=== PATIENT | male | born 1960 | race Caucasian/White ===

== ENCOUNTER 2016-06-15 10:38 | Emergency (ER) | payer MEDICARE, MEDICAID ==
--- NOTE | 2016-06-15 11:33 | ED ---
Altered Mental Status - History Of Current Complaint Chief Complaint: EDDiabeticProb Stated Complaint: DIABETIC Time Seen by Provider: 06/15/16 10:43 Hx Obtained From: Patient, Family/Tour Guide Onset/Duration: Unknown - was unable to arouse patient this am. his sugar was 27. she called [facility], they gave him glucose and he awoke, somewhat confused at first, then became clear. last BS was 127. Pt states he took his glucotrol last pm but did not eat after that or yet today. Character: Lethargy Aggravating Factor(s): Other - hypoglycemia Alleviating Factor(s): Glucose Associated Signs And Symptoms: Positive: Negative - Risk Factors CVA Risk Factor: Hypertension - Allergies/Home Medications Allergies/Adverse Reactions: Allergies Allergy/AdvReac Type Severity Reaction Status Date / Time Iodinated Contrast Media Allergy Rash Verified 11/08/15 12:42 [CONTRAST DYE] PMH/Surg Hx/FS Hx/Imm Hx Previously Healthy: Yes Endocrine/Hematology History: Reports: Hx Diabetes - WELL CONTROLLED Denies: Hx Anticoagulant Therapy, Hx Blood Disorders, Hx Blood Transfusions, Hx Bone Marrow Disease, Hx Systemic Lupus Erythematosus, Hx Sickle Cell Disease , Hx Thyroid Disease, Hx Anemia, Hx Unexplained Bleeding, Other Endocrine/ Hematological Disorders Cardiovascular History: Reports: Hx Angina - OCC- USES NITRO SL, Hx Angioplasty , Hx Coronary Artery Disease, Hx Hypercholesterolemia, Hx Hypertension - WELL CONTROLLED, Hx Pacemaker/ICD - 2007 Denies: Hx Aneurysm, Hx Auto Implanted Cardiovert Defib, Hx Cardiac Arrest, Hx Cardiomegaly, Hx Congenital Heart Disease, Hx Congestive Heart Failure, Hx Deep Vein Thrombosis, Hx Embolism, Hx Hypotension, Hx Myocardial Infarction, Hx Peripheral Vascular Disease, Hx Rheumatic Fever, Hx Syncope, Hx Valvular Heart Disease, Other Cardiovascular Problems/Disorders Respiratory History: Reports: Hx 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 Denies: Hx Chronic Bronchitis, Hx Chronic Obstructive Pulmonary Disease (COPD ), Hx Cystic Fibrosis, Hx Lung Cancer, Hx Pleural Effusion, Hx Pneumonia, Hx Pulmonary Edema, Hx Pulmonary Embolism, Hx Seasonal Allergies, Hx Sleep Apnea, Other Respiratory Problems/Disorders GI History: Reports: Hx Gastroesophageal Reflux Disease Denies: Hx Cirrhosis, Hx Crohn's Disease, Hx Diverticulosis, Hx Gall Bladder Disease, Hx Gastrointestinal Bleed, Hx Hiatal Hernia, Hx Irritable Bowel, Hx Jaundice, Hx Obstructive Bowel, Hx Ileostomy, Hx Pyloric Stenosis, Hx Ulcer, Other GI Disorders History: Reports: Hx Kidney Stones - LEFT Denies: Hx Acute Renal Failure, Hx Benign Prostatic Hyperplasia, Hx Chronic Renal Failure, Hx Dialysis, Hx Kidney Infection, Hx Renal Disease, Other Problems/Disorders Musculoskeletal History: Reports: Hx Arthritis - BILATERAL HANDS AND LEGS Denies: Hx Back Problems, Hx Bursitis, Hx Congenital Bone Abnormalities, Hx Fibromyalgia, Hx Gout, Hx Orthopedic Injury, Hx Osteoporosis, Hx Scoliosis, Hx Tendonitis, Other Musculoskeletal History Sensory History: Reports: Hx Contacts or Glasses Denies: Hx Hearing Aid Opthamlomology History: Reports: Hx Contacts or Glasses Neurological History: Denies: Hx Dementia, Hx Seizures, Other Neuro Impairments/Disorders Psychiatric History: Reports: Hx Depression Denies: Hx Anxiety, Hx Attention Deficit Hyperactivity Disorder, Hx Eating Disorder, Hx Panic Disorder, Hx Post Traumatic Stress Disorder, Hx Inpatient Treatment, Hx Community Mental Health Tx, Hx Schizophrenia, Hx Bipolar Disorder , Hx Suicide Attempt, Hx of Violent Episodes Against Others, Hx Substance Abuse , Other Psychiatric Issues/Disorders - Surgical History Surgery Procedure, Year, and Place: PACEMAKER [facility] [place] 2007. APPENDECTOMY [facility] [place]. MULTIPLE CYSTO, L STENT, L ESWL PROCEDURES [facility] [place]. CARDIAC CATH X3 2010 Hx Anesthesia Reactions: No - Immunization History Date of Tetanus Vaccine: Unknown Infectious Disease History: No Infectious Disease History: Denies: Hx Clostridium Difficile, Hx Hepatitis, Hx Human Immunodeficiency Virus (HIV), Hx Tuberculosis, Traveled Outside the [place] in Last 30 Days - Family History Known Family History: Positive: Cardiac Disease, Hypertension - Social History Alcohol Use: None Alcohol Amount: 2-3 PER DAY Substance Use Type: Reports: None Smoking Status (MU): Former Smoker Type: Cigarettes Amount Used/How Often: 2 PACKS A DAY Length of Time of Smoking/Using Tobacco: MANY YRS Have You Smoked in the Last Year: No Review of Systems Constitutional: Negative Eyes: Negative Cardiovascular: Negative Negative: Chest Pain Respiratory: Negative Negative: Shortness Of Breath, Cough Gastrointestinal: Negative Negative: Abdominal Pain Musculoskeletal: Negative Skin: Negative Neurological: Negative Negative: Headache, Weakness, Paresthesia, Slurred Speech Psychological: Normal All Other Systems Reviewed And Are Negative: Yes Physical Exam Triage Information Reviewed: Yes Vital Signs On Initial Exam: Initial Vitals Temp Pulse Resp BP Pulse Ox 97.4 F 71 18 150/101 97 06/15/16 11:06 06/15/16 11:06 06/15/16 11:06 06/15/16 11:06 06/15/16 11:06 Vital Signs Reviewed: Yes Appearance: Positive: Well-Appearing, No Pain Distress, Well-Nourished Skin: Positive: Warm, Skin Color Reflects Adequate Perfusion, Dry Head/Face: Positive: Normal Head/Face Inspection Eyes: Positive: Normal Respiratory/Lung Sounds: Positive: Clear to Auscultation Cardiovascular: Positive: Normal, RRR, Pulses are Symmetrical in both Upper and Lower Extremities Abdomen Description: Positive: Nontender, No Organomegaly, Soft Musculoskeletal: Positive: Normal, Strength/ROM Intact Neurological: Positive: Normal, Sensory/Motor Intact, Alert, Oriented to Person Place, Time Psychiatric: Positive: Normal Diagnostics - Vital Signs Vital Signs Temp Pulse Resp BP Pulse Ox 06/15/16 11:18 97.6 F 71 18 150/101 97 06/15/16 11:06 97.4 F 71 18 150/101 97 - Laboratory Result Diagrams: 06/15/16 11:35 Lab Statement: Any lab studies that have been ordered have been reviewed, and results considered in the medical decision making process. Re-Evaluation - Re-Evaluation First Eval Re-Evaluation Time: 12:00 - esting and stephen lunch Change: Unchanged Second Eval Change: Unchanged - discussed medications with pt since BS remains low after eating. He states he has not seen PCP in many months and is currently taking glucotrol XL 10mg 2 in am and 3 in pm, Metformin 1000mg bid and Janumet bid (provided pill bottles with pills intact) After speaking with pharmacist at [facility] @ 1500: pt last filled glucotrol on 09/27/2015. Metformin on 03/03/16 and Janumet on 05/21/16. Pt does check BS every day and state it was 150 yesterday. Pt willing to eat another sandwhich before going home Altered Mental Statu Course/Dx - Course Course Of Treatment: discussed plan of care and discharge plan with Dr. Ray before discharging patient. - Diagnoses Differential Diagnosis/HQI/PQRI: Hypoglycemia, Overdose, Sepsis Discharge Diagnoses: Hypoglycemia associated with diabetes Discharge - Discharge Plan Condition: Stable Disposition: HOME Patient Education Materials: Hypoglycemia in a Person with Diabetes (ED) Referrals: Erasmo Hill MD [Primary Care Provider] - (call on Friday06/17/16) Additional Instructions: Do Not Take any diabetic pills until you speak with Dr. Hill's office on Friday. Make sure you eat regularly and check your blood sugar 3 times a day at home. Return to ER if your blood sugar is below 80 or over 300 at anytime
[2016-06-15 12:57] LABS: Albumin 4.2 g/dL (3.2-5.2); BUN/Creatinine Ratio 19.3 (8-20); Calcium 8.8 mg/dL (8.6-10.3); EGFR African American 55.6 (>60); EGFR Non-African American 43.2 (>60); Globulin 2.6 g/dL (2-4); Potassium 4.4 mmol/L (3.5-5.0); Total Bilirubin 0.3 mg/dL (0.2-1.0); Total Protein 6.8 g/dL (6.4-8.9)
[2016-06-15 15:59] VITALS: BP 142/84
== END 2016-06-15 16:08 | disposition home or self-care (01) ==
LOC: ED 10:38
DX: E11.649 Type 2 diabetes mellitus with hypoglycemia without coma (principal); Z87.891 Personal history of nicotine dependence
CPT/HCPCS: 36415; 80053; 99283

== ENCOUNTER 2016-11-03 18:58 | Emergency (ER) | payer MEDICARE, MEDICAID ==
[2016-11-03] MEDS ORDERED: Ondansetron ODT TAB* 4 MG PO ONE (21:43)
--- NOTE | 2016-11-03 21:52 | ED ---
Complex/Multi-Sys Presentation - HPI Summary HPI Summary: 56 male presents to ED with complaints of weakness, numbness/tingling and pain of bilateral lower extremities that began today and has progressively been worsening. Patient states the symptoms began after push mowing the lawn for hours all day. States he was going up colindres and was twisting. Describes the pain to be "numb and weak". Denies any known injury or trauma otherwise. No bladder/bowel incontinence. Admits to entire LE being numb and without sensation. States they feel like jelly and like they are going to give out when he walks. States he fell while trying to get to his truck after mowing the lawn. Admits to vomiting twice [employer]. Patient denies any symptoms that have resembled this in the past. Woke up completely fine this morning. Patient states he also began having left rib sided pain that radiated into arm and weakness in LUE. Denies abdominal pain. Normal bowels. PMHx significant for HTN , DM, pacemaker, hyperkalemia, sleep apnea and CAD. No chest pain or difficulty breathing at this time. No other complaints. Denies back and neck pain. Admits to feeling feverish and sweaty earlier however did not take temperature. Very difficult historian. - History Of Current Complaint Chief Complaint: EDExtremityLower Time Seen by Provider: 11/03/16 21:23 Hx Obtained From: Patient Onset/Duration: Sudden Onset, Lasting Hours, Still Present, Worse Since Timing: Constant Severity Currently: Severe Severity Initially: Severe Location: Pain At: - b/l lower extremities Character: Unable To Describe - "sometimes sharp, numb, weak" Aggravating Factor(s): walking Alleviating Factor(s): nothing Associated Signs And Symptoms: Positive: Weakness - Allergies/Home Medications Allergies/Adverse Reactions: Allergies Allergy/AdvReac Type Severity Reaction Status Date / Time Iodinated Contrast Media Allergy Rash Verified 07/22/16 12:54 [CONTRAST DYE] PMH/Surg Hx/FS Hx/Imm Hx Endocrine/Hematology History: Reports: Hx Diabetes - WELL CONTROLLED Denies: Hx Anticoagulant Therapy, Hx Blood Disorders, Hx Blood Transfusions, Hx Bone Marrow Disease, Hx Systemic Lupus Erythematosus, Hx Sickle Cell Disease , Hx Thyroid Disease, Hx Anemia, Hx Unexplained Bleeding, Other Endocrine/ Hematological Disorders Cardiovascular History: Reports: Hx Angina - OCC- USES NITRO SL, Hx Angioplasty , Hx Coronary Artery Disease, Hx Hypercholesterolemia, Hx Hypertension - WELL CONTROLLED, Hx Pacemaker/ICD - 2007 Denies: Hx Aneurysm, Hx Auto Implanted Cardiovert Defib, Hx Cardiac Arrest, Hx Cardiomegaly, Hx Congenital Heart Disease, Hx Congestive Heart Failure, Hx Deep Vein Thrombosis, Hx Embolism, Hx Hypotension, Hx Myocardial Infarction, Hx Peripheral Vascular Disease, Hx Rheumatic Fever, Hx Syncope, Hx Valvular Heart Disease, Other Cardiovascular Problems/Disorders Respiratory History: Reports: Hx 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 Denies: Hx Chronic Bronchitis, Hx Chronic Obstructive Pulmonary Disease (COPD ), Hx Cystic Fibrosis, Hx Lung Cancer, Hx Pleural Effusion, Hx Pneumonia, Hx Pulmonary Edema, Hx Pulmonary Embolism, Hx Seasonal Allergies, Hx Sleep Apnea, Other Respiratory Problems/Disorders GI History: Reports: Hx Gastroesophageal Reflux Disease Denies: Hx Cirrhosis, Hx Crohn's Disease, Hx Diverticulosis, Hx Gall Bladder Disease, Hx Gastrointestinal Bleed, Hx Hiatal Hernia, Hx Irritable Bowel, Hx Jaundice, Hx Obstructive Bowel, Hx Ileostomy, Hx Pyloric Stenosis, Hx Ulcer, Other GI Disorders History: Reports: Hx Kidney Stones - LEFT Denies: Hx Acute Renal Failure, Hx Benign Prostatic Hyperplasia, Hx Chronic Renal Failure, Hx Dialysis, Hx Kidney Infection, Hx Renal Disease, Other Problems/Disorders Musculoskeletal History: Reports: Hx Arthritis - BILATERAL HANDS AND LEGS Denies: Hx Back Problems, Hx Bursitis, Hx Congenital Bone Abnormalities, Hx Fibromyalgia, Hx Gout, Hx Orthopedic Injury, Hx Osteoporosis, Hx Scoliosis, Hx Tendonitis, Other Musculoskeletal History Sensory History: Reports: Hx Contacts or Glasses Denies: Hx Hearing Aid Opthamlomology History: Reports: Hx Contacts or Glasses Neurological History: Denies: Hx Dementia, Hx Seizures, Other Neuro Impairments/Disorders Psychiatric History: Reports: Hx Depression Denies: Hx Anxiety, Hx Attention Deficit Hyperactivity Disorder, Hx Eating Disorder, Hx Panic Disorder, Hx Post Traumatic Stress Disorder, Hx Inpatient Treatment, Hx Community Mental Health Tx, Hx Schizophrenia, Hx Bipolar Disorder , Hx Suicide Attempt, Hx of Violent Episodes Against Others, Hx Substance Abuse , Other Psychiatric Issues/Disorders - Surgical History Surgery Procedure, Year, and Place[place] [facility] [place] [facility] [place] MULTIPLE CYSTO, L STENT, L ESWL [place] [facility] [place]ARDIAC [place] X3 2010 Hx Anesthesia Reactions: No - Immunization History Date of Tetanus Vaccine: Unknown Immunizations Up to Date: Yes Infectious Disease History: No Infectious Disease History: Denies: Hx Clostridium Difficile, Hx Hepatitis, Hx Human Immunodeficiency Virus (HIV), Hx Tuberculosis, Traveled Outside the [place] in Last 30 Days - Family History Known Family History: Positive: Cardiac Disease, Hypertension - Social History Alcohol Use: None Alcohol Amount: 2-3 PER DAY Substance Use Type: Reports: None Smoking Status (MU): Former Smoker Type: Cigarettes Amount Used/How Often: 2 PACKS A DAY Length of Time of Smoking/Using Tobacco: MANY YRS Have You Smoked in the Last Year: No Review of Systems Positive: Fever, Chills Eyes: Negative ENT: Negative Cardiovascular: Negative Respiratory: Negative Positive: Vomiting Positive: Arthralgia, Myalgia, Decreased ROM Skin: Negative Positive: Weakness - b/l lower extremities, left arm , Paresthesia, Numbness - bilateral lower extremities All Other Systems Reviewed And Are Negative: Yes Physical Exam Triage Information Reviewed: Yes Vital Signs On Initial Exam: Initial Vitals Temp Pulse Resp BP Pulse Ox 98.2 F 105 18 140/79 99 11/03/16 19:00 11/03/16 19:00 11/03/16 19:00 11/03/16 19:00 11/03/16 19:00 Vital Signs Reviewed: Yes Appearance: Positive: Well-Appearing, Well-Nourished, Pain Distress - moderate with movement, walking, weight bearing Skin: Positive: Warm, Skin Color Reflects Adequate Perfusion, Dry, Numb - b/l lower extremities, diffuse with sharp and dull, some feeling on bottom of feet. Negative: Cold, Cyanosis @, Pale, Erythema @ Head/Face: Positive: Normal Head/Face Inspection Eyes: Positive: Conjunctiva Clear ENT: Positive: Hearing grossly normal, Pharynx normal Neck: Positive: Supple, Nontender Respiratory/Lung Sounds: Positive: Clear to Auscultation, Breath Sounds Present. Negative: Rales, Rhonchi, Wheezes Cardiovascular: Positive: Normal, RRR, Pulses are Symmetrical in both Upper and Lower Extremities - 2+ pedal b/l. Negative: Murmur, Rub Abdomen Description: Positive: Nontender, No Organomegaly, Soft. Negative: Bruit, CVA Tenderness (R), CVA Tenderness (L), Distended, Guarding, Peritoneal Signs Bowel Sounds: Positive: Present Musculoskeletal: Positive: Limited @ - strenght decreased 1-2+ b/l lower extremities against resistance., Pain @ - with movement of b/l lower extremities , Other - no obvious deformity, crepitus or step off noted. no signs of trauma or rash. rest of MSK normal. No pain on palpation of spine or cervical spine + muscles.. Negative: Interruption @, Ar Sign Left, Ar Sign Right, Edema Left, Edema Right Neurological: Positive: Normal, Alert, Oriented to Person Place, Time, Abnormal Reflex @ - areflexia left patella, diminshed right patella 1+, areflexia b/l achilles. negative babinski, Abnormal Gait - weak, able for only ~10 steps until feels like he is going to fall, Facial Symmetry, Speech Normal, Other - sensation deminished b/l lower extrmities, diffusely, sharp and dull. Negative : Sensory/Motor Intact, NV Bundle Intact Distally, Facial Droop, Focal Deficit @ Psychiatric: Positive: Affect/Mood Appropriate - Kayleigh Coma Scale Best Eye Response: 4 - Spontaneous Best Motor Response: 6 - Obeys Commands Best Verbal Response: 5 - Oriented Diagnostics - Vital Signs Vital Signs Temp Pulse Resp BP Pulse Ox 11/03/16 19:00 98.2 F 105 18 140/79 99 - Laboratory Result Diagrams: 11/03/16 22:30 11/03/16 22:30 Lab Statement: Any lab studies that have been ordered have been reviewed, and results considered in the medical decision making process. - Radiology chest Xray Interpretation: No Acute Changes Radiology Interpretation Completed By: ED Physician - Dr Castano - CT brain CT Interpretation: No Acute Changes CT Interpretation Completed By: Radiologist - EKG EKG Cardiac Rate: NL EKG Rhythm: Sinus Tachycardia ST Segment: Normal Ectopy: None EKG Interpretation: No STEMI, pacemaker present Complex Multi-Symp Course/Dx Course Of Treatment: Spoke with Dr Castano about patient due to presentation, HPI and PE findings. Spoke with neurologist Dr Pro who stated patient needs further imaging and testing to rule out neurologic illness such as GBS, MS versus spinal. Patient has pacemaker unknown MRI compatibility. Had placed in 2007 at [facility] per patient. difficult historian. Labs obtained, patient has chronic kidney disease with elevated BUN/Cr. Hyperkalemia and hyperglycemia noted patient has known history of DM and hyperkalemia in which he was unable to take his night medications for due to being in ED. No chest pain. EKG obtained and sinus tachy, no stemi, pacemaker present. Given fluids, kayexalate. Bladder scan obtained and only 97ml of fluid bladder, does not appear to be retaining fluids. Chest x-ray and CT brain obtained and negative. Slightly elevated WBC with left shift, no fever. After discussion with Dr Castano and Dr Pro neurologist- agreed that transfer for EMG and MRI testing is preferred and requested. Speciality testing unable [place] obtain [place] [facility]. Requires prompt testing due to rapid progression and for patient's best interest. Spoke with [facility] physician Dr Caro and neurologist Dr Young. Told to check glucose en route and give 10 of insulin while in ED. Both accepted patient for transfer at 12:00am. - Diagnoses Differential Diagnoses/HQI/PQRI: Other - infection, GBS, transverse myelitis, MS , AAA, hyperkalemia, paresthesia, weakness Provider Diagnoses: Numbness and tingling of both lower extremities, Hyperkalemia, Hyperglycemia, Diminished reflexes on examination - Physician Notifications Discussed Care Of Patient With: Dr Castano, Dr Caro, Dr Young Time Discussed With Above Provider: 11:30 Instructed by Provider To: Transfer Admit/Transition Orders Completed By ED Provider: Yes Reason For Transfer: Specialty or service not available [place] [facility] - prompt EMG testing Discharge - Discharge Plan Condition: Stable Disposition: TRANS HIGHER LVL OF CARE FAC
[2016-11-03 22:55] LABS: Hematocrit 38 % (42-52); Hemoglobin 12.3 g/dl (14.0-18.0); Mean Corpuscular HGB Conc 33 g/dl (31-36); Mean Corpuscular Hemoglobin 26 pg (27-31); Mean Corpuscular Volume 80 fL (80-94); Mean Platelet Volume 9 um3 (7.4-10.4); Red Blood Count 4.67 10^6/ul (4.0-5.4); Red Cell Distribution Width 15 % (10.5-15)
[2016-11-03 23:03] LABS: Albumin 4.2 g/dL (3.2-5.2); C Reactive Protein 30.71 mg/L (< 5.00); Calcium 8.3 mg/dL (8.6-10.3); EGFR African American 55.8 (>60); EGFR Non-African American 43.4 (>60); Globulin 2.7 g/dL (2-4); Magnesium 1.3 mg/dL (1.9-2.7); Total Bilirubin 0.8 mg/dL (0.2-1.0); Total Protein 6.9 g/dL (6.4-8.9)
[2016-11-03 23:07] LABS: Potassium 6.2 mmol/L (3.5-5.0)
[2016-11-03] MEDS ORDERED: NS 0.9% 1000 ML* 1,000 ML IV ONE (23:23)
[2016-11-03] MEDS ORDERED: Sodium Polystyrene ORAL.SOL* 15 GM/60 ML BTL PO ONE (23:40)
[2016-11-03 23:47] LABS: Erythrocyte Sed Rate 11 mm/Hr (0-20)
[2016-11-04] MEDS: NS 0.9% 1000 ML* 2,000 ML IV ONE ×2 (00:32→01:32)
[2016-11-04] MEDS ORDERED: Insulin REGULAR(*) 1 UNITS UNIT SUBCUT ONE (01:14)
[2016-11-04 02:38] VITALS: BP 136/73
[2016-11-04] MEDS ORDERED: HYDROcodone/ACETAMIN 5-325 MG* 1 TAB PO ONE (02:47)
--- NOTE | 2016-11-04 07:24 | RAD ---
INDICATION: Left rib pain. COMPARISON: Comparison is made with prior chest x-ray studies from April 05, 2014 and February 15, 2016. TECHNIQUE: Dual-energy PA and lateral views of the chest were obtained. FINDINGS: There is a dual-chamber cardiac pacemaker defibrillator present. The heart appears mildly enlarged and unchanged from the prior exam. The lungs are clear. There is blunting of the left costophrenic angle which is unchanged from prior studies most consistent with pleural thickening. No pneumothorax is seen. IMPRESSION: 1. NO EVIDENCE FOR ACUTE FINDING. 2. BLUNTING OF THE LEFT COSTOPHRENIC ANGLE UNCHANGED MOST CONSISTENT WITH PLEURAL THICKENING.
--- NOTE | 2016-11-04 07:30 | RAD ---
INDICATION: Bilateral extremity pain evaluate for CVA. COMPARISON: There are no prior studies available for comparison. TECHNIQUE: Contiguous axial sections of the brain were obtained from the skull base to the vertex without contrast. FINDINGS: The ventricles, cisterns and sulci are within normal limits. No significant focal abnormality or mass effect is seen. There is no evidence for hemorrhage. There is calcific plaque within the left vertebral artery. No significant focal osseous abnormality is seen. The visualized portion of the paranasal sinuses and mastoid air cells appear clear. IMPRESSION: NO EVIDENCE FOR GROSS ACUTE INFARCT, MASS EFFECT OR HEMORRHAGE.
== END 2016-11-04 01:39 | disposition short-term general hospital (02) ==
LOC: ED 18:58
DX: R20.0 Anesthesia of skin (principal); R20.2 Paresthesia of skin; E87.5 Hyperkalemia; E11.65 Type 2 diabetes mellitus with hyperglycemia; I25.119 Atherosclerotic heart disease of native coronary artery with unspecified angina pectoris; J45.909 Unspecified asthma, uncomplicated; K21.9 Gastro-esophageal reflux disease without esophagitis; I25.10 Atherosclerotic heart disease of native coronary artery without angina pectoris; E78.00 Pure hypercholesterolemia, unspecified; I10 Essential (primary) hypertension; Z95.0 Presence of cardiac pacemaker; Z87.891 Personal history of nicotine dependence
CPT/HCPCS: 36415; 70450; 71020; 80053; 83735; 85025; 85652; 86140; 93005; 96360; 96361; 99283; A9270-GY

== ENCOUNTER 2017-05-02 10:59 | Emergency (ER) | payer MEDICARE, MEDICAID ==
[2017-05-02] MEDS ORDERED: Oxymetazoline 0.05% NASAL SPR* 15 ML BTL RIGHT NARE ONE (11:25)
[2017-05-02] MEDS ORDERED: Labetalol IV* 5 MG/ML 20 ML VIAL IV PUSH ONE (11:27)
[2017-05-02 11:52] LABS: ABS Basophils 0.1 10^3/ul (0-0.2); ABS Eosinophils 0.1 10^3/ul (0-0.6); ABS Monocytes 0.7 10^3/ul (0-0.8); ABS Neutrophils 13.3 10^3/ul (1.5-7.7); ABS Nucleated RBC 0 10^3/ul; Eosinophil % 0.9 % (0-6); Hematocrit 29 % (42-52); Hemoglobin 9.2 g/dl (14.0-18.0); Lymphocyte % 6.7 % (25-47); Mean Corpuscular HGB Conc 32 g/dl (31-36); Mean Corpuscular Hemoglobin 25 pg (27-31); Mean Corpuscular Volume 79 fL (80-94); Mean Platelet Volume 9 um3 (7.4-10.4); Nucleated Red Blood Cells % 0; Platelet Count 197 10^3/ul (150-450); Red Blood Count 3.67 10^6/ul (4.0-5.4); Red Cell Distribution Width 14 % (10.5-15); White Blood Count 15.2 10^3/ul (3.5-10.8)
[2017-05-02 11:58] LABS: INR 1.24 (0.77-1.02)
--- OUTSIDE RECORDS SUMMARY | 2017-05-02 12:11 | XMS REPORT ---
:1960 External Reference #:[id number] Author Organization [facility] Address [address] [address] Phone [phone] Care Team Providers Name Role Phone Erasmo Hill MD Primary Care Physician Unavailable Payers Type Date Identification Numbers Payment Provider Subscriber Medicare Primary Effective: Policy Number: Medicare Fer Pratt 2007 [id number] PayID: [id number] [address] [place] [address] [facility] Part [facility] Policy Number: [id number] Medicaid Fer Pratt PayID: [id number] [address] [place] [address] Problems Date Description Provider Status Onset: 06/04/2011 Chest pain Jordan Rojas M.D. Onset: 06/04/2011 Electrocardiogram abnormal Jordan Rojas M.D. Onset: 06/04/2011 Benign essential hypertension Jordan Rojas M.D. Onset: 06/04/2011 Hyperlipidemia Jordan Rojas M.D. Onset: 06/04/2011 Automatic implantable cardiac Jordan Rojas defibrillator in situ [employer] Onset: 07/11/2011 Coronary arteriosclerosis [place] [facility] Schedule Active Onset: 07/11/2011 Chronic ischemic heart disease [place] [facility] Schedule Active Onset: 05/26/2012 Tachycardia Jordan Rojas M.D. Onset: 05/26/2012 Dyspnea Jordan Rojas M.D. Onset: 10/16/2012 Spinal stenosis of lumbar region Leobardo Reynoso M.D. Active Onset: 11/24/2012 Preoperative cardiovascular Jordan Rojas M.D. Onset: 02/02/2013 Arthralgia of the lower leg Edmund Jasso M.D. 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[employer] Onset: 11/01/2016 Epistaxis Macey Cespedes DNP, RN, Active [employer]ST[employer] Family History Date Family Member(s) Problem(s) Comments General Arthritis General Stroke General Diabetes General Cancer Father Sleep Apnea Father Hypertension Father Hypercholesterolemia Father Diabetes Mother due to car accident () Mother Heart Disease Social History Type Date Description Comments Marital Status Single Lives With Girlfriend Occupation Unemployed Occupation Disabled Cigarette Use Former Cigarette Smoker ETOH Use Occasionally consumes alcohol rarely- 1 beer at most Smoking Patient is a former smoker Recreational Drug Use Denies Drug Use Daily Caffeine Consumes on average 1 cup of regular coffee per day Daily Caffeine Consumes on average 2 sodas per day Exercise Type/Frequency Exercises regularly Works at [employer] Hx Text Allergies, Adverse Reactions, Alerts Date Description Reaction Status Severity Comments 06/14/2009 contrast dye Urticaria active 08/30/2016 Shellfish Urticaria active Medications Medication Date Status Form Strength Qnty SIG Indications Ordering Provider Xarelto 02/21/ Active Tablets 20mg 30tab 1 by mouth I48.91 Qutaybbrennan 2018 s every day Jess German M.D. Magnesium Oxide 07/22/ Active Tablets 400mg 60tab 1 by mouth Qutaybeh 2016 s twice a S. day Etelvina German Aspirin 07/10/ Active Tablets 81mg 1 by mouth Qutaybbrennan 2017 every day Jess German M.D. Metoprolol 07/05/ Active Tablets ER 25mg 30tab 1 by mouth I42.9 Qutaybeh Succinate ER 2016 24HR s every day Jess German M.D. Tylenol 02/03/ Active Tablets 500mg 100ta two qd prn Qutaybeh 2007 bs S. Etelvina German Nasonex 02/03/ Active Suspension 50mcg/Act 1Mon 1 [place] Timmy 2007 Jon Each S. Side qd Etelvina German Albuterol / Active Aerosol 90mcg/Act 1 po bid Unknown 0000 prn Diltiazem HCL / Active Tablets 30mg 180ta 1 by mouth Jenisetaybbrennan bs twice a S. day Etelvina German Brilinta / Active Tablets 90mg 60tab 1 tab by Qutaybbrennan s mouth S. twice a Monserrat bunn M.D. Nitrostat / Active Tablets Sub 0.4mg 25tab one sl Jenisetaybbrennan s q5min up S. to 3 doses Monserrat as needed Etelvina Cetirizine HCL / Active Tablets 10mg 1 by mouth Unknown 0000 every day Janumet / Active Tablets 50-1000mg take 1 Unknown 0000 tablet by mouth twice a day Symbicort / Active Aerosol 160-4.5mc 2 puff Unknown 0000 g/Act twice a day Omeprazole / Active Tablets DR 20mg 1 by mouth Unknown 0000 every day Gabapentin / Active Capsules 300mg 1 by mouth Unknown 0000 twice a day Lisinopril / Active Tablets 2.5mg 1 by mouth Unknown 0000 every day Triamterene/Hyd / Active Capsules 37.5-25mg 1 tablet Unknown rochlorothiazid 0000 po daily e Atorvastatin / Active Tablets 80mg 90tab take one Timmy Calcium 0000 s tablet by S. mouth Monserrat every day Etelvina Magnesium 07/22/ Hx Solution 2GM/50ML 2gms 2 gms IV Qutaybeh Sulfate 2017 - over 3 S. 09/08/ hours Monserrat Orta M.D. Metformin HCL 12/03/ Hx Tablets ? 60tab 1 by mouth Jenisetaybbrennan 2016 - s daily S. 12/04/ Monserrat Cuellar M.D. Magnesium 10/31/ Hx Solution 2GM/50ML 1unit 2 gm Arnulfo Sulfate 2016 - s infusion F. 09/22/ over 1 Mauser, 2016 hour x 1 M.D. dose Magnesium Oxide 10/31/ Hx Tablets 400mg 30tab 1 by mouth Qutaybeh 2015 - s bid S. 07/10/ (Unsure If [facility] 2016 Takng) , Etelvina Metoprolol 07/16/ Hx Tablets 100mg 60tab 1 po bid Qutaybeh Tartrate 2012 - s (taken S. 06/19/ with 25 mg [facility] 2016 tabs) , Etelvina Metoprolol 07/16/ Hx Tablets 25mg 60tab 1 po bid Qutaybeh Tartrate 2012 - (with S. 10/16/ 100mg to [facility] 2012 equal , M.D. 125mg bid) Cardizem 05/26/ Hx Tablets 30mg 180ta 1 by mouth Qutaybeh 2012 - twice S. 12/31/ daily [facility] 2015 , Etelvina Lisinopril 04/25/ Hx Tablets 5mg 30tab 1/2 po qd Qutaybeh 2009 - s (decreased S. 07/09/ /03/04) [facility] 2016 , Etelvina Metoprolol 04/25/ Hx Tablets 100mg 60tab 1 po bid Qutaybeh Tartrate 2009 - s S. 07/16/ [facility] 2012 , Etelvina Metformin HCL 03/31/ Hx Tablets 1000mg 1 po bid Qutaybeh 2008 - S. 12/18/ [facility] 2013 , Etelvina Metoprolol 03/31/ Hx Tablets ER 50mg 90tab 1 and 02/18 Qutaybeh 2009 - 24HR s po bid S. 04/25/ [facility] 2010 , Etelvina Lisinopril 02/03/ Hx Tablets 5mg 30tab 1 po qd Qutaybeh 2007 - s S. 02/03/ [facility] 2008 , Etelvina Metoprolol 02/03/ Hx Tablets ER 50mg two qd Qutaybeh 2007 - S. 03/31/ [facility] 2009 , Etelvina Metformin HCL 02/03/ Hx Tablets 1000mg two qd Qutaybeh 2007 - S. 03/31/ [facility] 2009 , Etelvina Lisinopril 02/03/ Hx Tablets 2.5mg qd Qutaybeh 2007 - S. 04/25/ [facility] 2009 , Etelvina Prevacid 02/03/ Hx Capsules DR 30mg 90cap 1 PO qd Qutaybeh 2007 - s S. 06/19/ [facility] 2016 , Etelvina Glipizide XL 02/03/ Hx Tablets ER 10mg 100ta bid PO Qutaybeh 2007 - 24HR bs S. 06/19/ [facility] 2016 , Etelvina Albuterol 02/03/ Hx 3unit 2 Puffs Up Qutaybeh Inhaler 2007 - s To qid prn S. 06/06/ [facility] 2010 , Etelvina Singulair 02/03/ Hx Tablets 10mg 30tab 1 PO qd Qutaybeh 2007 - s S. 07/09/ [facility] 2016 , Etelvina Lescol 02/03/ Hx Tablets ER 80mg 30tab 1 PO hs Qutaybeh 2007 - 24HR s S. 06/06/ [facility] 2010 , Etelvina Lanoxin 06/16/ Hx Tablets 0.25mg 30tab 1 PO qd Qutaybeh 2007 - s S. 06/19/ [facility] 2016 , Etelvina Metoprolol 06/16/ Hx Tablets 50mg 110ta 1and 02/18 Qutaybeh Tartrate 2007 - bs po bid S. 02/03/ 2007 , Etelvina Lisinopril 06/16/ Hx Tablets 2.5mg 30tab 1 po qd Qutaybeh 2007 - s S. 02/03/ 2007 Etelvina Digitek / Hx Tablets 0.25mg 1 PO qd Qutaybeh 2007 - S. 06/16/ 2007 , Etelvina Metoprolol / Hx Tablets ER 25mg 90tab 1po bid Qutaybeh Succinate ER 2007 - 24HR s S. 06/16/ 2007 Etelvina Aspirin 04/16/ Hx Tablets 325mg 1 PO qd Qutaybeh 2007 - S. 07/10/ [facility] 2016 , Etelvina Glucotrol 04/16/ Hx Tablets 15mg 60tab 1 PO qd Qutaybeh 2007 - s S. 06/19/ Monserrat Orta M.D. Metformin HCL 04/16/ Hx Tablets 500mg 60tab Take 1 Qutaybeh 2007 - Tablet By S. 02/03/ Mouth qd Monserrat Pereira M.D. Plavix / Hx Tablets 75mg 1 po qd x3 Unknown 0000 - days 2009 Simvastatin / Hx Tablets 40mg 30tab 1 po qhs Unknown 0000 - s 2015 Humulin R / Hx Solution 100Unit/M 2unit 20 units Unknown 0000 - L s qam; 20 12/18/ units q 2013 p.m. Humulin R / Hx sliding Unknown 0000 - scale tid 2015 Metoprolol / Hx Tablets 25mg 1 by mouth Unknown Tartrate 0000 - twice a day (taken 2016 with 100 mg tabs) Metformin HCL / Hx Tablets 1000mg 1 by mouth Unknown 0000 - twice a day 2017 Triam / Hx Cream 0.1% Meghanura, 0000 - MD Erasmo 2016 Triamcinolone / Hx Cream 0.1% apply thin Unknown Acetonide 0000 - film twice daily 2017 Patanol / Hx Drops prn for Unknown 0000 - allergies 2016 Medications Administered in Office Medication Date Status Form Strength Qnty SIG Indications Ordering Provider Depomedrol Administered Injection Jaz 80MG 011 DAVEY Avelar Vital Signs Date Vital Result Comment 04/16/2017 Height 67 inches 5'7" Weight 186.25 lb Heart Rate 70 /min BP Systolic Sitting 136 mmHg Lue reg cuff BP Diastolic Sitting 88 mmHg Lue reg cuff Respiratory Rate 16 /min O2 % BldC Oximetry 97 % On Ra BMI (Body Mass Index) 29.2 kg/m2 02/21/2017 Height 67 inches 5'7" Weight 182.00 lb w/ shoes Heart Rate 88 /min BP Systolic Sitting 150 mmHg Lue, lg cuff BP Diastolic Sitting 90 mmHg Lue, lg cuff Respiratory Rate 16 /min BMI (Body Mass Index) 28.5 kg/m2 Ejection Fraction 30-35% as of 02/20/17 echo 02/19/2017 Height 67 inches 5'7" Weight 184.00 lb with shoes Heart Rate 78 /min BP Systolic Sitting 148 mmHg LA reg cuff BP Diastolic Sitting 88 mmHg LA reg cuff BMI (Body Mass Index) 28.8 kg/m2 Ejection Fraction 30%-35% echo 07/19/16 01/01/2017 Height 67 inches 5'7" Weight 183.25 lb Heart Rate 92 /min BP Systolic Sitting 140 mmHg Rue reg cuff BP Diastolic Sitting 88 mmHg Rue reg cuff Respiratory Rate 22 /min O2 % BldC Oximetry 98 % On Ra BMI (Body Mass Index) 28.7 kg/m2 12/10/2016 Height 67 inches 5'7" Weight 182.00 lb Heart Rate 92 /min BP Systolic Sitting 132 mmHg Rue reg cuff BP Diastolic Sitting 96 mmHg Rue reg cuff BP Systolic Standing 134 mmHg Rue BP Diastolic Standing 100 mmHg Rue Respiratory Rate 18 /min BMI (Body Mass Index) 28.5 kg/m2 Ejection Fraction 30-35% 07/19/16 11/01/2016 Height 67 inches 5'7" Weight 181.00 lb Heart Rate 76 /min BP Systolic Sitting 134 mmHg BP Diastolic Sitting 82 mmHg Respiratory Rate 14 /min O2 % BldC Oximetry 76 % BMI (Body Mass Index) 28.3 kg/m2 09/09/2016 Height 67 inches 5'7" Weight 183.75 lb with shoes Heart Rate 92 /min BP Systolic Sitting 142 mmHg LA reg cuff BP Diastolic Sitting 82 mmHg LA reg cuff BMI (Body Mass Index) 28.8 kg/m2 Ejection Fraction 30% - 35% echo 07/19/16 08/30/2016 Height 67 inches 5'7" Weight 181.00 lb w/ shoes Heart Rate 74 /min reg BP Systolic Sitting 116 mmHg Rue, reg cuff BP Diastolic Sitting 74 mmHg Rue, reg cuff Respiratory Rate 16 /min O2 % BldC Oximetry 98 % on Ra BMI (Body Mass Index) 28.3 kg/m2 07/19/2016 Height 67 inches 5'7" Weight 175.00 lb Heart Rate 88 /min BP Systolic Sitting 128 mmHg left arm, reg cuff BP Diastolic Sitting 92 mmHg left arm, reg cuff Respiratory Rate 24 /min O2 % BldC Oximetry 98 % room air BMI (Body Mass Index) 27.4 kg/m2 07/10/2016 Height 67 inches 5'7" Weight 173.00 lb with shoes Heart Rate 94 /min BP Systolic Sitting 138 mmHg LA reg cuff BP Diastolic Sitting 82 mmHg LA reg cuff BMI (Body Mass Index) 27.1 kg/m2 Ejection Fraction 35% - 40% echo 03/25/16 07/05/2016 Height 67 inches 5'7" Weight 165.00 lb Heart Rate 88 /min BP Systolic Sitting 148 mmHg Lue reg cuff BP Diastolic Sitting 84 mmHg Lue reg cuff BP Systolic Standing 148 mmHg Lue BP Diastolic Standing 82 mmHg Lue Respiratory Rate 16 /min BMI (Body Mass Index) 25.8 kg/m2 Ejection Fraction 35-40% 03/25/16 06/12/2016 Height 67 inches 5'7" Weight 165.00 lb Heart Rate 104 /min BP Systolic Sitting 124 mmHg BP Diastolic Sitting 60 mmHg Respiratory Rate 18 /min O2 % BldC Oximetry 97 % BMI (Body Mass Index) 25.8 kg/m2 Neck Circumference in inches 16.5 03/28/2016 Height 67 inches 5'7" Weight 175.00 lb with shoes Heart Rate 102 /min BP Systolic Sitting 98 mmHg LA reg cuff BP Diastolic Sitting 58 mmHg LA reg cuff BMI (Body Mass Index) 27.4 kg/m2 Ejection Fraction 35% - 40% echo 03/25/16 01/01/2016 Height 67 inches 5'7" Weight 182.25 lb with shoes Heart Rate 76 /min BP Systolic Sitting 176 mmHg LA, large BP Diastolic Sitting 90 mmHg LA, large BMI (Body Mass Index) 28.5 kg/m2 Ejection Fraction 25-30% echo 11/20/15 12/04/2015 Height 67 inches 5'7" Weight 157.75 lb with shoes Heart Rate 88 /min BP Systolic Sitting 120 mmHg LA reg cuff BP Diastolic Sitting 76 mmHg LA reg cuff BMI (Body Mass Index) 24.7 kg/m2 Ejection Fraction 25% - 30% echo 11/20/15 10/19/2015 Height 67 inches 5'7" Weight 180.50 lb with shoes Heart Rate 98 /min BP Systolic Sitting 98 mmHg reg cuff Lue BP Diastolic Sitting 66 mmHg reg cuff Lue BP Systolic Standing 104 mmHg reg cuff Lue BP Diastolic Standing 70 mmHg reg cuff Lue Respiratory Rate 18 /min BMI (Body Mass Index) 28.3 kg/m2 Ejection Fraction 40-45% echo 05/29/15 09/18/2015 Height 67 inches 5'7" Weight 179.00 lb with shoes Heart Rate 78 /min BP Systolic Sitting 128 mmHg LA reg cuff BP Diastolic Sitting 74 mmHg LA reg cuff BMI (Body Mass Index) 28.0 kg/m2 Ejection Fraction 40% - 45% echo 05/29/15 04/21/2015 Height 67 inches 5'7" Weight 175.25 lb with boots Heart Rate 62 /min BP Systolic Sitting 108 mmHg Ra, regular cuff BP Diastolic Sitting 62 mmHg Ra, regular cuff BMI (Body Mass Index) 27.4 kg/m2 Ejection Fraction 50-55% echo 08/04/14 12/26/2014 Height 67 inches 5'7" Weight 173.75 lb w/ shoes Heart Rate 100 /min BP Systolic Sitting 170 mmHg LA, reg BP Diastolic Sitting 92 mmHg LA, reg BMI (Body Mass Index) 27.2 kg/m2 Ejection Fraction 50-55% 08/04/14 ECHO 11/08/2014 Height 67 inches 5'7" Weight 165.00 lb w/ shoes Heart Rate 88 /min BP Systolic Sitting 138 mmHg LA, reg BP Diastolic Sitting 84 mmHg LA, reg BMI (Body Mass Index) 25.8 kg/m2 Ejection Fraction 50-55% 08/04/14 ECHO 07/07/2014 Height 67 inches 5'7" Weight 167.25 lb w/ shoes Heart Rate 80 /min BP Systolic Sitting 124 mmHg LA, reg BP Diastolic Sitting 76 mmHg LA, reg BMI (Body Mass Index) 26.2 kg/m2 Ejection Fraction 50-55% 08/04/13 ECHO 04/11/2014 Height 67 inches 5'7" Weight 176.75 lb Heart Rate 86 /min BP Systolic 130 mmHg LA reg BP Diastolic 78 mmHg LA reg BMI (Body Mass Index) 27.7 kg/m2 09/14/2013 Height 67 inches 5'7" Weight 180.75 lb Heart Rate 92 /min BP Systolic Sitting 126 mmHg BP Diastolic Sitting 76 mmHg Respiratory Rate 16 /min BMI (Body Mass Index) 28.3 kg/m2 07/26/2013 Height 67 inches 5'7" Weight 180.75 lb Heart Rate 72 /min BP Systolic Sitting 120 mmHg right,reg BP Diastolic Sitting 74 mmHg right,reg BMI (Body Mass Index) 28.3 kg/m2 11/24/2012 Height 67 inches 5'7" Weight 184.00 lb Heart Rate 92 /min BP Systolic Sitting 144 mmHg BP Diastolic Sitting 88 mmHg Respiratory Rate 16 /min BMI (Body Mass Index) 28.8 kg/m2 10/16/2012 Height 67 inches 5'7" Weight 189.00 lb BP Systolic 130 mmHg BP Diastolic 72 mmHg BMI (Body Mass Index) 29.6 kg/m2 07/30/2012 Height 67 inches 5'7" Weight 179.00 lb Heart Rate 91 /min BP Systolic 112 mmHg BP Diastolic 70 mmHg Respiratory Rate 16 /min BMI (Body Mass Index) 28.0 kg/m2 06/09/2012 Height 67 inches 5'7" Weight 180.00 lb Heart Rate 100 /min BP Systolic 126 mmHg BP Diastolic 80 mmHg BMI (Body Mass Index) 28.2 kg/m2 05/26/2012 Height 67 inches 5'7" Weight 178.50 lb Heart Rate 110 /min BP Systolic Sitting 142 mmHg BP Diastolic Sitting 90 mmHg BMI (Body Mass Index) 28.0 kg/m2 08/12/2011 Height 67 inches 5'7" Weight 169.25 lb Heart Rate 92 /min BP Systolic Sitting 110 mmHg BP Diastolic Sitting 78 mmHg BMI (Body Mass Index) 26.5 kg/m2 06/04/2011 Height 67 inches 5'7" Weight 175.00 lb Heart Rate 95 /min BP Systolic 114 mmHg BP Diastolic 62 mmHg BMI (Body Mass Index) 27.4 kg/m2 01/17/2011 Height 67 inches 5'7" Weight 190.00 lb Heart Rate 70 /min BP Systolic 135 mmHg BP Diastolic 81 mmHg BMI (Body Mass Index) 29.8 kg/m2 06/06/2010 Height 67 inches 5'7" Weight 191.00 lb Heart Rate 100 /min BP Systolic Sitting 134 mmHg BP Diastolic Sitting 82 mmHg BMI (Body Mass Index) 29.9 kg/m2 10/18/2009 Height 67 inches 5'7" Weight 191.00 lb Heart Rate 92 /min BP Systolic Sitting 128 mmHg BP Diastolic Sitting 68 mmHg BMI (Body Mass Index) 29.9 kg/m2 06/21/2009 Weight 193.00 lb Heart Rate 88 /min BP Systolic 140 mmHg BP Diastolic 82 mmHg Respiratory Rate 16 /min 06/07/2009 Height 67 inches 5'7" Weight 200.00 lb Heart Rate 76 /min BP Systolic Sitting 120 mmHg L BP Diastolic Sitting 74 mmHg L BMI (Body Mass Index) 31.3 kg/m2 04/25/2009 Weight 205.00 lb Heart Rate 103 /min BP Systolic Sitting 140 mmHg BP Diastolic Sitting 88 mmHg Respiratory Rate 16 /min 12/01/2008 Weight 211.00 lb Heart Rate 92 /min BP Systolic Sitting 122 mmHg BP Diastolic Sitting 72 mmHg Respiratory Rate 18 /min 07/05/2008 Height 68 inches 5'8" Weight 220.00 lb Heart Rate 97 /min BP Systolic Sitting 150 mmHg BP Diastolic Sitting 90 mmHg BMI (Body Mass Index) 33.4 kg/m2 03/31/2008 Height 68 inches 5'8" Weight 219.00 lb Heart Rate 96 /min BP Systolic Sitting 136 mmHg BP Diastolic Sitting 98 mmHg BMI (Body Mass Index) 33.3 kg/m2 03/10/2008 Height 68 inches 5'8" Heart Rate 92 /min BP Systolic Sitting 160 mmHg BP Diastolic Sitting 90 mmHg 02/04/2008 Height 68 inches 5'8" Weight 218.00 lb Heart Rate 64 /min BP Systolic Sitting 124 mmHg R BP Diastolic Sitting 80 mmHg R BMI (Body Mass Index) 33.1 kg/m2 11/25/2007 Weight 220.00 lb Heart Rate 101 /min BP Systolic Sitting 142 mmHg BP Diastolic Sitting 80 mmHg Respiratory Rate 16 /min 06/17/2007 Weight 223.00 lb Heart Rate 88 /min BP Systolic Sitting 120 mmHg BP Diastolic Sitting 80 mmHg Respiratory Rate 16 /min 04/16/2007 Weight 225.00 lb Heart Rate 100 /min BP Systolic Sitting 140 mmHg BP Diastolic Sitting 76 mmHg Respiratory Rate 16 /min Results Test Date Test Result H/L Range Note Comp Metabolic Panel 02/21/2017 Sodium 133 mmol/L 133-145 Potassium 4.8 mmol/L 3.5-5.0 Chloride 103 mmol/L 101-111 Co2 Carbon Dioxide 23 mmol/L 22-32 Anion Gap 7 mmol/L 2-11 Glucose 196 mg/dL High 70-100 Blood Urea Nitrogen 30 mg/dL High 6-24 Creatinine 1.48 mg/dL High 0.67-1.17 BUN/Creatinine Ratio 20.3 High 8-20 Calcium 8.4 mg/dL Low 8.6-10.3 Total Protein 6.3 g/dL Low 6.4-8.9 Albumin 4.0 g/dL 3.2-5.2 Globulin 2.3 g/dL 2-4 Albumin/Globulin Ratio 1.7 1-3 Total Bilirubin 0.80 mg/dL 0.2-1.0 Alkaline Phosphatase 78 U/L 34-104 Alt 23 U/L 7-52 Ast 16 U/L 13-39 Egfr Non- 49.2 >60 Egfr 63.2 >60 1 Laboratory test finding 02/21/2017 Magnesium 1.5 mg/dL Low 1.9-2.7 CBC Auto Diff 02/21/2017 White Blood Count 10.5 10^3/uL 3.5-10.8 Red Blood Count 4.30 10^6/uL 4.0-5.4 Hemoglobin 11.6 g/dL Low 14.0-18.0 Hematocrit 34 % Low 42-52 Mean Corpuscular Volume 80 fL 80-94 Mean Corpuscular Hemoglobin 27 pg 27-31 Mean Corpuscular HGB Conc 34 g/dL 31-36 Red Cell Distribution Width 14 % 10.5-15 Platelet Count 170 10^3/uL 150-450 Mean Platelet Volume 9 um3 7.4-10.4 Abs Neutrophils 7.6 10^3/uL 1.5-7.7 Abs Lymphocytes 1.9 10^3/uL 1.0-4.8 Abs Monocytes 0.7 10^3/uL 0-0.8 Abs Eosinophils 0.2 10^3/uL 0-0.6 Abs Basophils 0.1 10^3/uL 0-0.2 Abs Nucleated RBC 0 10^3/uL Granulocyte % 72.6 % 38-83 Lymphocyte % 18.1 % Low 25-47 Monocyte % 6.3 % 1-9 Eosinophil % 2.3 % 0-6 Basophil % 0.7 % 0-2 Nucleated Red Blood Cells % 0 Laboratory test finding 02/21/2017 TSH (Thyroid Stim 1.10 mcIU/mL 0.34- 5.60 Horm) Laboratory test finding 08/22/2016 Magnesium 1.6 mg/dL Low 1.9-2.7 2 Comp Metabolic Panel 07/19/2016 Sodium 135 mmol/L 133-145 Potassium 4.6 mmol/L 3.5-5.0 Chloride 105 mmol/L 101-111 Co2 Carbon Dioxide 23 mmol/L 22-32 Anion Gap 7 mmol/L 2-11 Glucose 160 mg/dL High 70-100 Blood Urea Nitrogen 28 mg/dL High 6-24 Creatinine 1.45 mg/dL High 0.67-1.17 BUN/Creatinine Ratio 19.3 8-20 Calcium 8.9 mg/dL 8.6-10.3 Total Protein 6.5 g/dL 6.4-8.9 Albumin 4.2 g/dL 3.2-5.2 Globulin 2.3 g/dL 2-4 Albumin/Globulin Ratio 1.8 1-3 Total Bilirubin 0.60 mg/dL 0.2-1.0 Alkaline Phosphatase 93 U/L 34-104 Alt 18 U/L 7-52 Ast 16 U/L 13-39 Egfr Non- 50.5 >60 Egfr 65.0 >60 3 CBC Auto Diff 07/19/2016 White Blood Count 10.9 10^3/uL High 3.5-10.8 Red Blood Count 3.86 10^6/uL Low 4.0-5.4 Hemoglobin 10.8 g/dL Low 14.0-18.0 Hematocrit 32 % Low 42-52 Mean Corpuscular Volume 83 fL 80-94 Mean Corpuscular Hemoglobin 28 pg 27-31 Mean Corpuscular HGB Conc 34 g/dL 31-36 Red Cell Distribution Width 14 % 10.5-15 Platelet Count 135 10^3/uL Low 150-450 Mean Platelet Volume 9 um3 7.4-10.4 Abs Neutrophils 8.0 10^3/uL High 1.5-7.7 Abs Lymphocytes 2.0 10^3/uL 1.0-4.8 Abs Monocytes 0.6 10^3/uL 0-0.8 Abs Eosinophils 0.2 10^3/uL 0-0.6 Abs Basophils 0.1 10^3/uL 0-0.2 Abs Nucleated RBC 0.01 10^3/uL Granulocyte % 73.7 % 38-83 Lymphocyte % 18.4 % Low 25-47 Monocyte % 5.8 % 1-9 Eosinophil % 1.5 % 0-6 Basophil % 0.6 % 0-2 Nucleated Red Blood Cells % 0 Laboratory test finding 07/19/2016 Magnesium 1.0 mg/dL Low 1.9-2.7 Lipid Profile (Trig/Chol/HDL) 07/19/2016 Triglycerides 181 mg/dL 4 Cholesterol 108 mg/dL 5 HDL Cholesterol 29.3 mg/dL 6 LDL Cholesterol 43 mg/dL 7 Laboratory test finding 07/19/2016 Creatine Kinase(CK) 83 U/L 10-223 Basic Metabolic Panel 06/07/2016 Sodium 137 mmol/L 133-145 Chloride 109 mmol/L 101-111 Co2 Carbon Dioxide 24 mmol/L 22-32 Glucose 65 mg/dL Low 70-100 Blood Urea Nitrogen 29 mg/dL High 6-24 Creatinine 2.03 mg/dL High 0.67-1.17 BUN/Creatinine Ratio 14.3 8-20 Calcium 8.3 mg/dL Low 8.6-10.3 Egfr Non- 34.3 >60 Egfr 44.1 >60 8 Potassium 6.3 mmol/L High 3.5-5.0 9 Anion Gap 4 mmol/L 2-11 Basic Metabolic Panel 12/29/2015 Sodium 139 mmol/L 133-145 Potassium 4.0 mmol/L 3.5-5.0 Chloride 104 mmol/L 101-111 Co2 Carbon Dioxide 29 mmol/L 22-32 Anion Gap 6 mmol/L 2-11 Glucose 119 mg/dL High 70-100 Blood Urea Nitrogen 25 mg/dL High 6-24 Creatinine 1.23 mg/dL High 0.67-1.17 BUN/Creatinine Ratio 20.3 High 8-20 Calcium 8.7 mg/dL 8.6-10.3 Egfr Non- 61.1 >60 Egfr 78.6 >60 10 Laboratory test finding 12/27/2015 Point of Care Glucose 160 mg/dL High 74 -106 11 Basic Metabolic Panel 12/21/2015 Sodium 138 mmol/L 133-145 Potassium 5.2 mmol/L High 3.5-5.0 Chloride 105 mmol/L 101-111 Co2 Carbon Dioxide 27 mmol/L 22-32 Anion Gap 6 mmol/L 2-11 Glucose 104 mg/dL High 70-100 Blood Urea Nitrogen 29 mg/dL High 6-24 Creatinine 1.53 mg/dL High 0.67-1.17 BUN/Creatinine Ratio 19.0 8-20 Calcium 9.0 mg/dL 8.6-10.3 Egfr Non- 47.5 >60 Egfr 61.1 >60 12 Laboratory test finding 12/18/2015 Partial Thrombo Time 30.2 seconds 26.0 -36.3 PTT CBC Auto Diff 12/18/2015 White Blood Count 8.6 10^3/uL 3.5-10.8 Red Blood Count 4.20 10^6/uL 4.0-5.4 Hemoglobin 11.8 g/dL Low 14.0-18.0 Hematocrit 34 % Low 42-52 Mean Corpuscular Volume 80 fL 80-94 Mean Corpuscular Hemoglobin 28 pg 27-31 Mean Corpuscular HGB Conc 35 g/dL 31-36 Red Cell Distribution Width 13 % 10.5-15 Platelet Count 155 10^3/uL 150-450 Mean Platelet Volume 9 um3 7.4-10.4 Abs Neutrophils 5.9 10^3/uL 1.5-7.7 Abs Lymphocytes 2.0 10^3/uL 1.0-4.8 Abs Monocytes 0.5 10^3/uL 0-0.8 Abs Eosinophils 0.2 10^3/uL 0-0.6 Abs Basophils 0.1 10^3/uL 0-0.2 Abs Nucleated RBC 0 10^3/uL Granulocyte % 68.4 % 38-83 Lymphocyte % 22.6 % Low 25-47 Monocyte % 6.4 % 1-9 Eosinophil % 1.9 % 0-6 Basophil % 0.7 % 0-2 Nucleated Red Blood Cells % 0 Basic Metabolic Panel 12/18/2015 Sodium 137 mmol/L 133-145 Potassium 4.4 mmol/L 3.5-5.0 Chloride 102 mmol/L 101-111 Co2 Carbon Dioxide 28 mmol/L 22-32 Anion Gap 7 mmol/L 2-11 Glucose 167 mg/dL High 70-100 Blood Urea Nitrogen 23 mg/dL 6-24 Creatinine 1.37 mg/dL High 0.67-1.17 BUN/Creatinine Ratio 16.8 8-20 Calcium 9.2 mg/dL 8.6-10.3 Egfr Non- 53.9 >60 Egfr 69.4 >60 13 Inr/Protime 12/18/2015 Inr 1.01 0.89-1.11 Basic Metabolic Panel 12/04/2015 Sodium 136 mmol/L 133-145 Potassium 5.2 mmol/L High 3.5-5.0 Chloride 102 mmol/L 101-111 Co2 Carbon Dioxide 28 mmol/L 22-32 Anion Gap 6 mmol/L 2-11 Glucose 194 mg/dL High 70-100 Blood Urea Nitrogen 28 mg/dL High 6-24 Creatinine 1.26 mg/dL High 0.67-1.17 BUN/Creatinine Ratio 22.2 High 8-20 Calcium 8.6 mg/dL 8.6-10.3 Egfr Non- 59.4 >60 Egfr 76.4 >60 14 Laboratory test finding 12/04/2015 Magnesium 1.2 mg/dL Low 1.9-2.7 15 Laboratory test finding 11/09/2015 Magnesium 1.3 mg/dL Low 1.9-2.7 16 Laboratory test finding 10/31/2015 Creatine Kinase(CK) 63 U/L 10-223 17 Thyroid Panel 10/31/2015 Free T4 (Free 0.93 ng/dL 0.61-1.12 18 Thyroxine) Thyroxine 9.36 ?g/dL 6.09-12.23 19 TSH (Thyroid Stim Horm) 0.68 mcIU/mL 0.34-5.60 20 Lipid Profile (Trig/Chol/HDL) 10/31/2015 Triglycerides 279 mg/dL 21 Cholesterol 137 mg/dL 22 HDL Cholesterol 31.1 mg/dL 23 LDL Cholesterol 50 mg/dL 24 Laboratory test finding 10/31/2015 Digoxin 0.2 ng/ml Low 0.8-2.0 25 Magnesium 1.2 mg/dL Low 1.9-2.7 26 Comp Metabolic Panel 10/31/2015 Sodium 135 mmol/L 133-145 Potassium 5.1 mmol/L High 3.5-5.0 Chloride 104 mmol/L 101-111 Co2 Carbon Dioxide 23 mmol/L 22-32 Anion Gap 8 mmol/L 2-11 Glucose 114 mg/dL High 70-100 Blood Urea Nitrogen 28 mg/dL High 6-24 Creatinine 1.40 mg/dL High 0.67-1.17 BUN/Creatinine Ratio 20.0 8-20 Calcium 8.6 mg/dL 8.6-10.3 Total Protein 6.7 g/dL 6.4-8.9 Albumin 4.3 g/dL 3.2-5.2 Globulin 2.4 g/dL 2-4 Albumin/Globulin Ratio 1.8 1-3 Total Bilirubin 0.60 mg/dL 0.2-1.0 Alkaline Phosphatase 49 U/L 34-104 Alt 16 U/L 7-52 Ast 15 U/L 13-39 Egfr Non- 52.6 >60 Egfr 67.7 >60 27 CBC Auto Diff 10/31/2015 White Blood Count 9.9 10^3/uL 3.5-10.8 Red Blood Count 4.07 10^6/uL 4.0-5.4 Hemoglobin 11.5 g/dL Low 14.0-18.0 Hematocrit 34 % Low 42-52 Mean Corpuscular Volume 82 fL 80-94 Mean Corpuscular Hemoglobin 28 pg 27-31 Mean Corpuscular HGB Conc 34 g/dL 31-36 Red Cell Distribution Width 14 % 10.5-15 Platelet Count 177 10^3/uL 150-450 Mean Platelet Volume 9 um3 7.4-10.4 Abs Neutrophils 6.5 10^3/uL 1.5-7.7 Abs Lymphocytes 2.4 10^3/uL 1.0-4.8 Abs Monocytes 0.6 10^3/uL 0-0.8 Abs Eosinophils 0.3 10^3/uL 0-0.6 Abs Basophils 0.1 10^3/uL 0-0.2 Abs Nucleated RBC 0.08 10^3/uL Granulocyte % 66.3 % 38-83 Lymphocyte % 24.4 % Low 25-47 Monocyte % 6.0 % 1-9 Eosinophil % 2.7 % 0-6 Basophil % 0.6 % 0-2 Nucleated Red Blood Cells % 0.8 Laboratory test finding 07/08/2014 Amylase 56 U/L 29-103 Lipase 69 U/L 11.0-82.0 B Type Natriuretic Peptide 28 pg/mL 28 Hepatic Liver Functions PNL 07/08/2014 Total Protein 7.2 g/dL 6.4-8.9 Albumin 3.5 g/dL 3.2-5.2 Globulin 3.7 g/dL 2-4 Albumin/Globulin Ratio 0.9 Low 1-3 Total Bilirubin 0.40 mg/dL 0.2-1.0 Direct Bilirubin 0.10 mg/dL 0.03-0.18 Indirect Bilirubin 0.3 mg/dL 0.3-1.0 Alkaline Phosphatase 117 U/L High 34-104 Alt 15 U/L 7-52 Ast 11 U/L Low 13-39 BMP Basic Metabolic Panel (8) 07/08/2014 Sodium 127 mmol/L Low 133-145 Chloride 95 mmol/L Low 101-111 Co2 Carbon Dioxide 25 mmol/L 22-32 Glucose 461 mg/dL High 70-100 Blood Urea Nitrogen 35 mg/dL High 6-24 Creatinine 1.47 mg/dL High 0.67-1.17 BUN/Creatinine Ratio 23.8 High 8-20 Calcium 9.3 mg/dL 8.6-10.3 Egfr Non- 50.1 >60 Egfr 64.4 >60 29 Potassium 6.4 mmol/L High 3.5-5.0 30 Anion Gap 7 mmol/L 2-11 CBC W/Auto Diff 07/08/2014 White Blood Count 13.8 10^3/uL High 4.8-10.8 Red Blood Count 4.23 10^6/uL 4.0-5.4 Hemoglobin 10.7 g/dL Low 14.0-18.0 Hematocrit 32 % Low 42-52 Mean Corpuscular Volume 76 fL Low 80-94 Mean Corpuscular Hemoglobin 25 pg Low 27-31 Mean Corpuscular HGB Conc 33 g/dL 31-36 Red Cell Distribution Width 15 % 10.5-15 Platelet Count 277 10^3/uL 150-450 Mean Platelet Volume 8 um3 7.4-10.4 Abs Neutrophils 11.1 10^3/uL High 1.5-7.7 Abs Lymphocytes 1.8 10^3/uL 1.0-4.8 Abs Monocytes 0.6 10^3/uL 0-0.8 Abs Eosinophils 0.3 10^3/uL 0-0.6 Abs Basophils 0.1 10^3/uL 0-0.2 Abs Nucleated RBC 0.01 10^3/uL Granulocyte % 80.0 % 38-83 Lymphocyte % 13.0 % Low 25-47 Monocyte % 4.0 % 1-9 Eosinophil % 2.2 % 0-6 Basophil % 0.8 % 0-2 Nucleated Red Blood Cells % 0 Laboratory test finding 07/12/2010 Glucose 439 mg/dL High 70-100 31, 32 Laboratory test finding 04/08/2010 Stool For Blood NEGATIVE Negative Laboratory test finding 06/15/2009 Glucose 369 mg/dL High 70-100 33 Laboratory test finding 06/15/2009 Glucose Stat 343 mg/dL High 70-100 34 Laboratory test finding 06/15/2009 Glucose Stat 203 mg/dL High 70-100 35 Laboratory test finding 06/15/2009 Glucose 269 mg/dL High 70-100 36 Laboratory test finding 06/15/2009 Glucose Stat 271 mg/dL High 70-100 37 Laboratory test finding 06/14/2009 Glucose Stat 525 mg/dL High 70-100 38 Laboratory test finding 06/14/2009 Glucose Stat 579 mg/dL High 70-100 39 Basic Metabolic Panel 06/14/2009 Sodium 127 mmol/L Low 135-145 Potassium 3.9 mmol/L 3.5-5.0 Chloride 93 mmol/L Low 101-111 Co2 (Carbon Dioxide) 24.0 mmol/L 22-32 Anion Gap 10.0 mmol/L 2-11 40 Glucose 579 mg/dL High 70-100 41 BUN 24 mg/dL 6-24 Creatinine 0.77 mg/dL 0.50-1.40 One Over Creatinine 1.20 BUN/Creatinine Ratio 31.2 High 8-20 Calcium 8.5 mg/dL 8.1-9.9 42 eGFR Non- 114.6 > 60 eGFR 138.7 > 60 43 Basic Metabolic Panel 06/14/2009 Sodium 130 mmol/L Low 135-145 Potassium 3.7 mmol/L 3.5-5.0 Chloride 93 mmol/L Low 101-111 Co2 (Carbon Dioxide) 28.0 mmol/L 22-32 Anion Gap 9.0 mmol/L 2-11 44 Glucose 345 mg/dL High 70-100 45 BUN 18 mg/dL 6-24 Creatinine 0.60 mg/dL 0.50-1.40 One Over Creatinine 1.60 BUN/Creatinine Ratio 30.0 High 8-20 Calcium 9.1 mg/dL 8.1-9.9 46 eGFR Non- 152.8 > 60 eGFR 184.9 > 60 47 Laboratory test finding 06/14/2009 Glucose Stat 542 mg/dL High 70-100 48 1 Because ethnic data is not always readily available, this report includes an eGFR for both -Americans and non- Americans. The National Kidney Disease Education Program (NKDEP) does not endorse the use of the MDRD equation for patients that are not between the ages of 18 and 70, are , have extremes of body size, muscle mass, or nutritional status, or are non- or non-. According to the National Kid[employer] Foundation, irrespective of diagnosis, the stage of the disease is based on the level of kidney function: Stage Description GFR(mL/min/1.73 m(2)) 1 Kidney damage with normal or decreased GFR 90 2 Kidney damage with mild decrease in GFR 60-89 3 Moderate decrease in GFR 30-59 4 Severe decrease in GFR 15-29 5 Kidney failure <15 (or dialysis) 2 07/25/16 3 Because ethnic data is not always readily available, this report includes an eGFR for both -Americans and non- Americans. The National Kidney Disease Education Program (NKDEP) does not endorse the use of the MDRD equation for patients that are not between the ages of 18 and 70, are , have extremes of body size, muscle mass, or nutritional status, or are non- or non-. According to the National Kidney Foundation, irrespective of diagnosis, the stage of the disease is based on the level of kidney function: Stage Description GFR(mL/min/1.73 m(2)) 1 Kidney damage with normal or decreased GFR 90 2 Kidney damage with mild decrease in GFR 60-89 3 Moderate decrease in GFR 30-59 4 Severe decrease in GFR 15-29 5 Kidney failure <15 (or dialysis) 4 Desirable <150 Borderline high 150-199 High 200-499 Very High >500 5 Desirable <200 Borderline high 200-239 High >239 6 Low <40 Desirable: 40-60 High: >60 7 Desirable: <100 mg/dL Near Optimal: 100-129 mg/dL Borderline High: 130-159 mg/dL High: 160-189 mg/dL Very High: >189 mg/dL 8 Because ethnic data is not always readily available, this report includes an eGFR for both -Americans and non- Americans. The National Kidney Disease Education Program (NKDEP) does not endorse the use of the MDRD equation for patients that are not between the ages of 18 and 70, are , have extremes of body size, muscle mass, or nutritional status, or are non- or non-. According to the National Kidney Foundation, irrespective of diagnosis, the stage of the disease is based on the level of kidney function: Stage Description GFR(mL/min/1.73 m(2)) 1 Kidney damage with normal or decreased GFR 90 2 Kidney damage with mild decrease in GFR 60-89 3 Moderate decrease in GFR 30-59 4 Severe decrease in GFR 15-29 5 Kidney failure <15 (or dialysis) 9 Critical Result K:6.3 Called to IQRA Nielsen at: 16:28:49 by:[id number] Read back by:IQRA Nielsen 10 Because ethnic data is not always readily available, this report includes an eGFR for both -Americans and non- Americans. The National Kidney Disease Education Program (NKDEP) does not endorse the use of the MDRD equation for patients that are not between the ages of 18 and 70, are , have extremes of body size, muscle mass, or nutritional status, or are non- or non-. According to the National Kidney Foundation, irrespective of diagnosis, the stage of the disease is based on the level of kidney function: Stage Description GFR(mL/min/1.73 m(2)) 1 Kidney damage with normal or decreased GFR 90 2 Kidney damage with mild decrease in GFR 60-89 3 Moderate decrease in GFR 30-59 4 Severe decrease in GFR 15-29 5 Kidney failure <15 (or dialysis) 11 Shipping Packer: [id number] CASSIA THRASHER 12 Because ethnic data is not always readily available, this report includes an eGFR for both -Americans and non- Americans. The National Kidney Disease Education Program (NKDEP) does not endorse the use of the MDRD equation for patients that are not between the ages of 18 and 70, are , have extremes of body size, muscle mass, or nutritional status, or are non- or non-. According to the National Kidney Foundation, irrespective of diagnosis, the stage of the disease is based on the level of kidney function: Stage Description GFR(mL/min/1.73 m(2)) 1 Kidney damage with normal or decreased GFR 90 2 Kidney damage with mild decrease in GFR 60-89 3 Moderate decrease in GFR 30-59 4 Severe decrease in GFR 15-29 5 Kidney failure <15 (or dialysis) 13 Because ethnic data is not always readily available, this report includes an eGFR for both -Americans and non- Americans. The National Kidney Disease Education Program (NKDEP) does not endorse the use of the MDRD equation for patients that are not between the ages of 18 and 70, are , have extremes of body size, muscle mass, or nutritional status, or are non- or non-. According to the National Kidney Foundation, irrespective of diagnosis, the stage of the disease is based on the level of kidney function: Stage Description GFR(mL/min/1.73 m(2)) 1 Kidney damage with normal or decreased GFR 90 2 Kidney damage with mild decrease in GFR 60-89 3 Moderate decrease in GFR 30-59 4 Severe decrease in GFR 15-29 5 Kidney failure <15 (or dialysis) 14 Because ethnic data is not always readily available, this report includes an eGFR for both -Americans and non- Americans. The National Kidney Disease Education Program (NKDEP) does not endorse the use of the MDRD equation for patients that are not between the ages of 18 and 70, are , have extremes of body size, muscle mass, or nutritional status, or are non- or non-. According to the National Kidney Foundation, irrespective of diagnosis, the stage of the disease is based on the level of kidney function: Stage Description GFR(mL/min/1.73 m(2)) 1 Kidney damage with normal or decreased GFR 90 2 Kidney damage with mild decrease in GFR 60-89 3 Moderate decrease in GFR 30-59 4 Severe decrease in GFR 15-29 5 Kidney failure <15 (or dialysis) 15 in 1 week 16 11/09/15 am after IV Mag infusion 17 fasting in next few days CC: PMD 18 fasting in next few days CC: PMD 19 fasting in next few days CC: PMD 20 fasting in next few days CC: PMD 21 Desirable <150 Borderline high 150-199 High 200-499 Very High >500 22 Desirable <200 Borderline high 200-239 High >239 23 Low <40 Desirable: 40-60 High: >60 24 Desirable: <100 mg/dL Near Optimal: 100-129 mg/dL Borderline High: 130-159 mg/dL High: 160-189 mg/dL Very High: >189 mg/dL 25 fasting in next few days CC: PMD 26 fasting in next few days CC: PMD 27 Because ethnic data is not always readily available, this report includes an eGFR for both -Americans and non- Americans. The National Kidney Disease Education Program (NKDEP) does not endorse the use of the MDRD equation for patients that are not between the ages of 18 and 70, are , have extremes of body size, muscle mass, or nutritional status, or are non- or non-. According to the National Kidney Foundation, irrespective of diagnosis, the stage of the disease is based on the level of kidney function: Stage Description GFR(mL/min/1.73 m(2)) 1 Kidney damage with normal or decreased GFR 90 2 Kidney damage with mild decrease in GFR 60-89 3 Moderate decrease in GFR 30-59 4 Severe decrease in GFR 15-29 5 Kidney failure <15 (or dialysis) 28 >100 to <200 pg/mL: likely compensated congestive heart failure (CHF) 200 to 400 pg/mL: likely moderate CHF >400 pg/mL: likely moderate to severe CHF 29 Because ethnic data is not always readily available, this report includes an eGFR for both -Americans and non- Americans. The National Kidney Disease Education Program (NKDEP) does not endorse the use of the MDRD equation for patients that are not between the ages of 18 and 70, are , have extremes of body size, muscle mass, or nutritional status, or are non- or non-. According to the National Kidney Foundation, irrespective of diagnosis, the stage of the disease is based on the level of kidney function: Stage Description GFR(mL/min/1.73 m(2)) 1 Kidney damage with normal or decreased GFR 90 2 Kidney damage with mild decrease in GFR 60-89 3 Moderate decrease in GFR 30-59 4 Severe decrease in GFR 15-29 5 Kidney failure <15 (or dialysis) 30 Critical Result K:6.4 Called to RAINA HAYS at: 15:35:57 by:[id number] Read back by:RAINA HAYS 31 CALL RESULTS TO DERECK AT [id number] 32 VERBAL TO DERECK BY ALEKSANDRA at 1222 on 07/12/10. Results read back accurately. 33 Note change in reference range as of 10/08/07. The change was based on recommendations from the [place] [employer]. 34 Note change in reference range as of 10/08/07. The change was based on recommendations from the [place] [employer]. 35 Note change in reference range as of 10/08/07. The change was based on recommendations from the [place] [employer]. 36 Note change in reference range as of 10/08/07. The change was based on recommendations from the [place] [employer]. 37 Note change in reference range as of 10/08/07. The change was based on recommendations from the [place] [employer]. 38 VERBAL TO SMITA BY RC at 2306 on 06/14/09. Results read back accurately. Note change in reference range as of 10/08/07. The change was based on recommendations from the [place] [employer]. 39 VERBAL TO ANAYELI BY RCOL at 2022 on 06/14/09. Results read back accurately. Note change in reference range as of 10/08/07. The change was based on recommendations from the [place] [employer]. 40 Anion gap measurement may be of limited value in the presence of any alkalosis, especially in a combined acid base disorder. . 41 VERBAL TO ANAYELI BY RCOL at 2022 on 06/14/09. Results read back accurately. Note change in reference range as of 10/08/07. The change was based on recommendations from the [place] [employer]. 42 Please note change in reference range effective 07 . 43 Because ethnic data is not always readily available, this report includes an eGFR for both -Americans and non- Americans. The National Kidney Disease Education Program (NKDEP) does not endorse the use of the MDRD equation for patients that are not between the ages of 18 and 70, are , have extremes of body size, muscle mass, or nutritional status, or are non- or non-. According to the National Kidney Foundation, irrespective of diagnosis, the stage of the disease is based on the level of kidney function: Stage Description GFR(mL/min/1.73 m(2)) 1 Kidney damage with normal or decreased GFR 90 2 Kidney damage with mild decrease in GFR 60-89 3 Moderate decrease in GFR 30-59 4 Severe decrease in GFR 15-29 5 Kidney failure <15 (or dialysis) 44 Anion gap measurement may be of limited value in the presence of any alkalosis, especially in a combined acid base disorder. . 45 Note change in reference range as of 10/08/07. The change was based on recommendations from the [place] [employer]. 46 Please note change in reference range effective 07 . 47 Because ethnic data is not always readily available, this report includes an eGFR for both -Americans and non- Americans. The National Kidney Disease Education Program (NKDEP) does not endorse the use of the MDRD equation for patients that are not between the ages of 18 and 70, are , have extremes of body size, muscle mass, or nutritional status, or are non- or non-. According to the National Kidney Foundation, irrespective of diagnosis, the stage of the disease is based on the level of kidney function: Stage Description GFR(mL/min/1.73 m(2)) 1 Kidney damage with normal or decreased GFR 90 2 Kidney damage with mild decrease in GFR 60-89 3 Moderate decrease in GFR 30-59 4 Severe decrease in GFR 15-29 5 Kidney failure <15 (or dialysis) 48 VERBAL TO ANAYELI BY [facility] at 1918 on 06/14/09. Results read back accurately. Note change in reference range as of 10/08/07. The change was based on recommendations from the [place] [employer]. Procedures Date CPT Code Description Status Comment 02/21/2017 70870 Icd Eval With Inerative Adjustmt Dual Lead Completed System 02/21/2017 64934 Icd Eval With Inerative Adjustmt Dual Lead Completed System 02/21/2017 46752 Icd Eval With Inerative Adjustmt Dual Lead Completed System 02/21/2017 21649 EKG Tracing & Interpretation Completed 02/20/2017 44995 ECHO Transthoracic, Real-Time 2D With Doppler Completed And Color Flow 02/20/2017 68012 ECHO Transthoracic, Real-Time 2D With Doppler Completed And Color Flow 12/12/2016 57113 Icd Eval With Inerative Adjustmt Dual Lead Completed System 12/12/2016 56517 Icd Eval With Inerative Adjustmt Dual Lead Completed System 12/10/2016 44378 EKG Tracing & Interpretation Completed 12/10/2016 20921 EKG Tracing & Interpretation Completed 09/25/2016 85277 Icd Eval With Inerative Adjustmt Dual Lead Completed System 09/09/2016 36713 EKG Tracing & Interpretation Completed 07/19/2016 70502 Echocardiogram, Limited Study Completed 06/28/2016 21225 Polysomnography Sleep Staging 4+ Parameters Completed 06/18/2016 13777 Icd Eval With Inerative Adjustmt Dual Lead Completed System 04/02/2016 02863 Icd Eval With Inerative Adjustmt Dual Lead Completed System 03/28/2016 99487 EKG Tracing & Interpretation Completed 03/25/2016 47603 ECHO Transthoracic, Real-Time 2D With Doppler Completed And Color Flow 02/15/2016 32359 EKG, Interpretation Only Completed 01/09/2016 36506 Icd Eval With Inerative Adjustmt Dual Lead Completed System 01/01/2016 35361 EKG Tracing & Interpretation Completed 12/28/2015 45395 EKG, Interpretation Only Completed 12/27/2015 80470 Intravascular Blood Flow Velocity Completed 12/27/2015 34686 Left Heart Cath. Incl S/I Coronaries, Angio S/I Completed V Gram If Done 12/27/2015 89743 EKG, Interpretation Only Completed 12/27/2015 97272 Percutaneous Transcatheter Placement Of Completed Intracoronary Stent 12/27/2015 14753 Percutaneous Transcatheter Placement Of Completed Intracoronary Stent 11/20/2015 80073 Echocardiogram, Limited Study Completed 10/16/2015 67068 Icd Eval With Inerative Adjustmt Dual Lead Completed System 09/25/2015 53444 Holter Monitor Review (24 hr)dr review & Completed interp only 09/21/2015 80217 ECG Monitor/Recording W/Visual Superimposition Completed Scanning 09/18/2015 53631 EKG Tracing & Interpretation Completed 07/06/2015 26702 Interrogation Device Eval In Person W/DR Completed Analysis,Single,Dual,Mul 05/29/2015 01276 ECHO Transthoracic, Real-Time 2D With Doppler Completed And Color Flow 03/28/2015 00785 Interrogation Device Eval In Person W/DR Completed Analysis,Single,Dual,Mul 01/19/2015 65291 Icd Check Single,Dual Or Multiple In Person Completed W/DR Incl Heart Rhyth 12/26/2014 26866 EKG Tracing & Interpretation Completed 12/22/2014 74818 Treadmill Interp/Report Only Completed 12/22/2014 23731 Stress Test Supervsn W/Out I/R Completed 11/08/2014 87690 EKG Tracing & Interpretation Completed 10/28/2014 51736 Icd Eval With Inerative Adjustmt Dual Lead Completed System 08/04/2014 12053 ECHO Transthoracic, Real-Time 2D With Doppler Completed And Color Flow 07/27/2014 61379 Icd Check Single,Dual Or Multiple In Person Completed W/DR Incl Heart Rhyth 05/02/2014 90093 Treadmill Interp/Report Only Completed 05/02/2014 16807 Stress Test Supervsn W/Out I/R Completed 05/02/2014 63211 EKG, Interpretation Only Completed 05/01/2014 54357 EKG, Interpretation Only Completed 04/18/2014 06008 Icd Eval With Inerative Adjustmt Dual Lead Completed System 04/11/2014 90671 EKG Tracing & Interpretation Completed 04/06/2014 45360 EKG, Interpretation Only Completed 02/03/2014 78868 Icd Eval With Iterative Adjustmt Multiple Lead Completed System 10/29/2013 26633 Icd Check Single,Dual Or Multiple In Person Completed W/DR Incl Heart Rhyth 09/29/2013 07898 Treadmill Interp/Report Only Completed 09/29/2013 95863 Stress Test Supervsn W/Out I/R Completed 09/23/2013 87335 Treadmill Interp/Report Only Completed 09/23/2013 53108 Stress Test Supervsn W/Out I/R Completed 08/04/2013 85115 ECHO Transthoracic, Real-Time 2D With Doppler Completed And Color Flow 07/27/2013 39178 Icd Check Single,Dual Or Multiple In Person Completed W/DR Incl Heart Rhyth 07/26/2013 08579 EKG Tracing & Interpretation Completed 05/25/2013 30439 Icd Check Single,Dual Or Multiple In Person Completed W/DR Incl Heart Rhyth 01/26/2013 41737 Icd Check Single,Dual Or Multiple In Person Completed W/DR Incl Heart Rhyth 12/24/2012 67580 Treadmill Interp/Report Only Completed 12/24/2012 82008 Stress Test Supervsn W/Out I/R Completed 12/08/2012 61740 ECHO Transthoracic, Real-Time 2D With Doppler Completed And Color Flow 11/24/2012 27076 EKG Tracing & Interpretation Completed 11/03/2012 06754 Icd Check Single,Dual Or Multiple In Person Completed W/DR Incl Heart Rhyth 09/03/2012 14101 Xray Knee 3 Views Completed 09/03/2012 59793 Rad Exam; Knee, Ap&L Completed 07/30/2012 39636 EKG Tracing & Interpretation Completed 07/07/2012 96040 Holter Monitoring 24 HR New Completed 06/25/2012 22490 Icd Check Single,Dual Or Multiple In Person Completed W/DR Incl Heart Rhyth 06/09/2012 85831 EKG Tracing & Interpretation Completed 05/28/2012 79284 Color Flow Doppler/Interp & Reprt Completed 05/28/2012 03455 Pulse Wave/Continuous-Interp.RPT Completed 05/28/2012 52061 ECHO Transthorasic Realtime 2D W Doppler & Completed Color Flow Hosp 05/26/2012 50585 EKG Tracing & Interpretation Completed 04/02/2012 55439 Icd Check Single,Dual Or Multiple In Person Completed W/DR Incl Heart Rhyth 11/21/2011 91138 Icd Check Single,Dual Or Multiple In Person Completed W/DR Incl Heart Rhyth 07/11/2011 56291 ECHO Transthoracic, Real-Time 2D With Doppler Completed And Color Flow 06/20/2011 20319 Icd Check Single,Dual Or Multiple In Person Completed W/DR Incl Heart Rhyth 06/04/2011 39065 EKG Tracing & Interpretation Completed 02/28/2011 95217 Icd Check Single,Dual Or Multiple In Person Completed W/DR Incl Heart Rhyth 01/17/2011 63100 Xray Knee 3 Views Completed R 01/17/2011 47103 Rad Exam; Knee, Ap&L Completed 01/17/201131600 Inject/Drain Joint/Bursa Major Completed 12/26/2010 46184 Icd Check Single,Dual Or Multiple In Person Completed W/DR Incl Heart Rhyth 10/03/2010 21057 Icd Check Single,Dual Or Multiple In Person Completed W/DR Incl Heart Rhyth 07/12/2010 21766 Treadmill Interp/Report Only Completed 07/12/2010 02279 Stress Test Supervsn W/Out I/R Completed 07/04/2010 83171 ECHO Transthoracic, Real-Time 2D With Doppler Completed And Color Flow 06/12/2010 61481 Icd Check Single,Dual Or Multiple In Person Completed W/ Incl Heart [facility] 06/06/2010 50992 EKG Tracing & Interpretation Completed 03/15/2010 49829 Icd Check Single,Dual Or Multiple In Person Completed W/ Incl Heart [facility] 01/05/2010 05532 Icd Check Single,Dual Or Multiple In Person Completed W/ Incl Heart [facility] 10/18/2009 08195 EKG Tracing & Interpretation Completed 10/12/2009 98675 Icd Eval With Inerative Adjustmt Dual Lead Completed System 08/10/2009 20787 Icd Check Single,Dual Or Multiple In Person Completed W/ Incl Heart [facility] 07/10/2009 72749 ECHO Transthoracic, Real-Time 2D With Doppler Completed And Color Flow 06/21/2009 86080 EKG Tracing & Interpretation Completed 06/14/2009 21108 Left Heart Catheterization Completed 06/14/2009 12753 Inj Proc LFT Vent/LFT Atrl Angio Completed 06/14/2009 96338 Coronary Angiography Completed 06/14/2009 54430 S/I/R Inj Proc Vent And Or Atrial Completed 06/14/2009 96920 Selective Coronary Angioplasty Completed 06/08/2009 25191 Icd Check Single,Dual Or Multiple In Person Completed W/ Incl Heart [facility] 06/07/2009 47676 EKG Tracing & Interpretation Completed 05/16/2009 42805 Treadmill Interp/Report Only Completed 05/16/2009 75523 Stress Test Supervsn W/Out I/R Completed 04/25/2009 94586 EKG Tracing & Interpretation Completed 03/16/2009 09845 Icd Check Remote Up To 90 Days Completed Single,Dual,Multiple Lead 12/08/2008 21250 Icd Check Single,Dual Or Multiple In Person Completed W/ Incl Heart [facility] 12/01/2008 71559 EKG, Interpretation Only Completed 12/01/2008 49630 EKG Tracing & Interpretation Completed 11/10/2008 98426 ECHO Transthoracic, Real-Time 2D With Doppler Completed And Color Flow 09/08/2008 94033 Icd Check Single,Dual Or Multiple In Person Completed W/ Incl Heart [facility] 07/05/2008 37156 EKG Tracing & Interpretation Completed 06/09/2008 82464 Icd Check Single,Dual Or Multiple In Person Completed W/ Incl Heart [facility] 03/31/2008 26203 EKG Tracing & Interpretation Completed 03/18/2008 75073 ECHO Transthoracic, Real-Time 2D With Doppler Completed And Color Flow 03/18/2008 46884 Echocardiogram Completed 03/18/2008 09717 Pulse Doppler & Continuous Wave Completed 03/18/2008 14399 Color Doppler Completed 03/17/2008 06231 Icd Check Single,Dual Or Multiple In Person Completed W/DR Incl Heart [facility] 03/10/2008 43191 EKG Tracing & Interpretation Completed 03/10/2008 82611 EKG Tracing & Interpretation Completed 03/10/2008 53425 EKG Tracing & Interpretation Completed 02/04/2008 36784 Analysis Aicd DC W/Out Reprogramg Completed 11/25/2007 63400 EKG Tracing & Interpretation Completed 10/23/2007 66744 Echocardiogram Completed 10/23/2007 33872 Echocardiogram Completed 10/23/2007 58148 Pulse Doppler & Continuous Wave Completed 10/23/2007 36767 Pulse Doppler & Continuous Wave Completed 10/23/2007 07113 Pulse Doppler & Continuous Wave Completed 10/23/2007 27780 Color Doppler Completed 10/23/2007 63033 Color Doppler Completed 06/17/2007 96574 EKG Tracing & Interpretation Completed 06/17/2007 70231 EKG Tracing & Interpretation Completed 05/28/2007 66877 Holter Monitor Completed 05/28/2007 22691 Holter Monitor Completed 05/28/2007 74323 Echocardiogram Completed 05/28/2007 21450 Pulse Doppler & Continuous Wave Completed 05/28/2007 36193 Pulse Doppler & Continuous Wave Completed 05/28/2007 30041 Color Doppler Completed 04/16/2007 44693 EKG Tracing & Interpretation Completed 04/06/2007 15015 Com RT And LT Catheterization Completed 04/06/2007 69527 Com RT And LT Catheterization Completed 04/06/2007 68272 Inj Proc LFT Vent/LFT Atrl Angio Completed 04/06/2007 72890 Coronary Angiography Completed 04/06/2007 35509 Coronary Angiography Completed 04/06/2007 51564 S/I/R Inj Proc Vent And Or Atrial Completed 04/06/2007 54930 Selective Coronary Angioplasty Completed 04/06/2007 74382 Selective Coronary Angioplasty Completed 04/03/2007 84683 Color Flow Doppler/Interp & Reprt Completed 04/03/2007 04683 Pulse Wave/Continuous-Interp.RPT Completed 04/03/2007 98490 Pulse Wave/Continuous-Interp.RPT Completed 04/03/2007 91472 Echocardiogram Completed 04/03/2007 12460 EKG, Interpretation Only Completed 04/03/2007 04939 EKG, Interpretation Only Completed Encounters Type Date Location Provider CPT E/M Dx Office Visit 02/21/2017 3:20p [facility] Pedritobrennan German, 47412 I47.2 M.D. I25.9 Z95.810 I25.5 R55 Z95.810 I10 G47.33 I48.91 R94.31 Office Visit 02/19/2017 10:00a [facility] CHERELLE Mancuso 78568 Z95.810 R55 I10 I25.5 Office Visit 01/01/2017 10:00a [facility] Macey Cespedes 00154 G47.33 Services Of [place] GROSS RN, FNP-BC Office Visit 12/10/2016 2:30p [facility] Of CHERELLE Mancuso 00169 I47.2 Ashely I25.9 Z95.810 I10 Office Visit 11/01/2016 11:00a [facility] Macey Cespedes 35100 G47.33 Services Of [place] GROSS RN, FNP-BC G47.14 R04.0 Office Visit 09/09/2016 1:20p [facility] Timmy German, 69470 G47.33 M.D. I42.9 I25.9 E78.5 I25.110 R94.31 Office Visit 08/30/2016 11:00a [facility] Macey Cespedes 38555 G47.33 Services Of [place] GROSS RN, FNP-BC G47.14 Office Visit 07/19/2016 10:45a [facility] Macey Cespedes 27463 G47.33 Services Of [place] GROSS RN, FNP-BC G47.14 Office Visit 07/10/2016 1:00p [facility] CHERELLE Mancuso 06219 I42.9 I25.9 R00.0 E87.5 E78.5 Office Visit 07/05/2016 3:30p [facility] Of [facility] CHERELLE Mancuso 94439 I25.9 R21 I42.9 R00.0 I10 Office Visit 06/12/2016 10:15a [facility] [place] [address] R06.83 Services Of [facility] G47.10 Office Visit 03/28/2016 3:30p [facility] CHERELLE Mancuso 93112 I42.9 R06.83 Z95.810 I25.118 M79.604 Office Visit 02/15/2016 10:20a [facility],[place] [address] R07.9 Hospitalists I25.10 I10 Office Visit 01/01/2016 1:40p [facility] Qutaybeh S. Maghaydstephanie, 13320 I42.9 M.D. 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 98832 I42.9 Etelvina German I25.10 I10 E78.5 Office Visit 10/19/2015 3:00p [facility] Of [facility] CHERELLE Mancuso 76476 Z95.810 I42.9 R00.0 E78.5 Office Visit 09/18/2015 3:00p [facility] Qutaybeh S. Maghaydah, 48309 I42.9 M.D. Z95.810 I25.10 I10 R00.0 I44.0 Office Visit 04/21/2015 3:00p [facility] CHERELLE Mancuso 33737 I42.9 Z95.810 I25.10 I10 R53.83 Office Visit 12/26/2014 2:40p [facility] Qutaybeh S. Ngoziah, 29974 I42.8 M.D. Z95.810 I25.10 I10 Office Visit 11/08/2014 1:20p [facility] Jenisetayb S. Monserrat, 31588 Z95.810 M.D. I42.8 I25.9 E11.9 R07.89 Office Visit 07/07/2014 3:30p [facility] CHERELLE Mancuso 06574 250.00 414.9 787.01 783.21 V45.02 285.9 Office Visit 05/04/2014 8:17a [facility], Alexia Stanton, 40317 599.0 Hospitalists M.D. 592.0 038.9 250.00 Office Visit 05/03/2014 10:26a [facility] Jenisetayb S. Sharonydstephanie, 48951 786.50 M.D. 794.31 Office Visit 05/03/2014 8:17a [facility], Alexia Stanton, 30504 599.0 Hospitalists M.D. 592.0 038.9 790.6 Office Visit 05/02/2014 11:23a [facility] Jenisetaybeh S. Sharonnishaah, 10618 414.9 M.D. 414.8 425.4 Office Visit 05/02/2014 8:15a [facility], Alexia Stanton, 88744 599.0 Hospitalists M.D. 592.0 038.9 790.6 Office Visit 05/01/2014 8:15a [facility], Aileen Dunn, N.P. 01197 599.0 Hospitalists 592.0 038.9 250.00 Office Visit 04/30/2014 8:13a [facility], Aileen Dunn, N.P. 02484 599.0 Hospitalists 592.0 038.9 250.00 Office Visit 04/11/2014 1:20p [facility] Qutaybeh S. Magleeroyydah, 54025 425.4 M.D. 401.9 425.9 V45.02 414.01 Office Visit 04/07/2014 10:34a [facility], Jose Humphreys, 38050 592.0 Hospitalists M.D. 425.4 250.00 401.9 Office Visit 04/06/2014 9:06a [facility] Arnulfo Kelley M.D. 26844 414.9 425.9 427.1 Office Visit 04/06/2014 10:34a [facility], Jose Humphreys, 49603 592.0 Hospitalists M.D. 425.4 250.00 401.9 Office Visit 04/05/2014 10:33a [facility], Gary Richardson, 22019 592.0 Hospitalists N.P. 425.4 250.00 401.9 Office Visit 09/23/2013 2:06p [facility] Qutaybeh S. Maghaydah, 97396 425.4 M.D. 786.50 Office Visit 09/14/2013 1:30p [facility] CHERELLE Mancuso 31830ARQ 786.50 414.01 794.31 425.9 V45.02 Office Visit 07/26/2013 4:00p [facility] Qutaybeh S. Maghaydah, 77265 786.50 M.D. 414.01 794.31 V45.02 Office Visit 12/24/2012 10:30a [facility] Qutaybeh S. Maghaydah, 53153 794.31 M.D. 414.9 414.8 Office Visit 11/24/2012 9:20a [facility] Qutaybeh S. Maghaydah, 15026 V45.02 M.D. 425.9 401.1 414.01 794.31 414.8 V72.81 786.05 Office Visit 10/16/2012 11:00a [facility] Leobardo Reynoso, 79505 724.03 Of [place] Main Office Visit 10/01/2012 10:15a [facility] Edmund Jasso, 85943 724.03 CVic Main Office Visit 09/03/2012 1:15p [facility] [place], 48987 724.3 C.MDae Main 719.46 Office Visit 07/30/2012 4:00p [facility] [place] [address] 401.1 Office Visit 06/09/2012 2:20p [facility] Qutaybeh S. Maghaydah, 88992 794.31 M.D. 414.01 425.9 401.1 785.0 Office Visit 05/26/2012 10:00a [facility] Jenisetaybbrennan S. Monserrat, 90870 425.9 M.D. V45.02 414.01 401.1 794.31 272.4 785.0 786.05 Office Visit 08/12/2011 3:00p [facility] Leia Katz, N.P. 24870 414.01 425.9 401.1 Office Visit 07/25/2011 2:15p [facility], 11431 717.7 C.M.ALina Main Office Visit 06/27/2011 9:30a [facility] [place]bbrennan S. 32813 794.31 Etelvina German 414.01 425.9 414.8 401.1 786.50 Office Visit 06/04/2011 2:00p [facility] Jenisetaybbrennan S. Monserrat, 36053 425.9 M.DLina 786.50 794.31 401.1 272.4 V45.02 Office Visit 05/24/2011 8:15a [facility], 57368 724.3 C.M.A. Etelvina Office Visit 01/17/2011 10:00a [facility] Of Jaz Avelar, 59131 719.46 C.M.Chica. RPA-C 717.9 836.0 Office Visit 07/12/2010 9:30a [facility] Jenisetaybbrennan S. Monserrat, 60460 794.31 M.DLina 412 414.01 401.1 272.4 Office Visit 06/06/2010 10:00a [facility] Qutaybeh S. Monserrat, 27161 794.31 M.D. 425.4 425.9 V45.02 401.9 414.01 272.4 Office Visit 10/18/2009 8:40a [facility] Qutaybeh S. Sharonydstephanie, 00053 425.9 M.D. V45.02 401.9 414.01 Office Visit 06/21/2009 11:20a [facility] Qutayb S. Monserrat, 82872 401.9 M.D. 414.01 272.4 Office Visit 06/16/2009 3:15a [facility], Ismael Morales M.D. 61451 250.00 Hospitalists 401.9 272.4 414.9 Office Visit 06/15/2009 3:00a [facility], Ismael Morales M.D. 38288 250.02 Hospitalists 414.9 401.9 790.99 Office Visit 06/14/2009 1:15a [facility] Shelby [place], 00894 790.29 Assoc, Hospitalists M.D. Office Visit 06/14/2009 12:00p [facility] Jenisetaybeh SLina 53760 414.01 Etelvina German 786.50 425.9 414.9 Office Visit 06/07/2009 10:00a [facility] Qutaybeh S. Maghaydah, 99763 414.01 M.D. 414.8 V45.02 425.9 401.1 Office Visit 04/25/2009 2:20p [facility] Qutaybeh S. Maghaydah, 56048 V45.02 M.D. 425.9 414.01 401.1 Office Visit 03/20/2009 12:45a [facility], [place], 73199 682.9 Hospitalists M.D. 250.00 428.0 Office Visit 03/19/2009 1:00a [facility], [place], 22081 682.9 Hospitalists M.D. 250.00 428.0 Office Visit 03/18/2009 12:15a [facility], Jose Humphreys, 91910 682.9 Hospitalists M.D. 250.00 790.29 428.0 Office Visit 12/01/2008 2:20p [facility] Qutaybeh S. Maghaydah, 78084 V45.02 M.D. 425.9 414.01 401.0 Office Visit 07/05/2008 3:20p [facility] Qutaybeh S. Maghaydah, 04995 425.9 M.D. V45.02 414.01 401.0 786.05 Office Visit 03/31/2008 1:40p [facility] Timmy German, 39679 425.9 M.D. V45.02 414.01 272.4 250.00 786.05 Office Visit 03/10/2008 12:40p [facility] Timmy German, 22501 414.01 M.D. 425.9 272.4 250.00 786.05 786.50 Office Visit 02/04/2008 11:00a [facility] Timmy German, 34341 414.01 M.D. 425.9 272.4 250.00 427.69 Office Visit 11/25/2007 8:40a [facility] Timmy German, 50119 414.01 M.D. 425.9 786.05 786.50 272.4 250.00 Office Visit 06/17/2007 11:20a [facility] Timmy German, 10537 414.01 M.D. 425.9 786.05 786.50 272.4 250.00 278.0 427.69 785.0 Office Visit 04/16/2007 3:00p [facility] Timmy German, 70897 414.01 M.D. 425.9 401.0 272.4 786.05 250.00 278.0 Plan of Care Future Appointment(s):10/14/2017 9:15 am - Macey Cespedes DNP, LIS, KATERINA- at [facility]06/03/2017 2:00 pm - Timmy German M.D. at [facility]05/28/2017 8:00 am - Timmy German M.D. at [facility]04/23/2017 9:30 am - Timmy German M.D. at [facility]04/16/2017 - Macey Cespedes DNP, RN, KATERINA-BCG47.33 Obstructive sleep apnea (adult) (pediatric)Comments:Sleep Apnea - mild NPSG AHI 5.9/hour tRDI 30.6/hour, (REM AHI 21.3/hour tRDI 56.3/hour), radha oxygen 89%Trial CPAP 6-8 cm [id number] up:6 monthsRecommendations:Continue PAP device, Benefitting and compliant with treatment. If you have any sleepiness while driving you MUST avoid operating a vehicle or machinery. If you have difficulty with your equipment, or need to replace your mask or hoses, please contact your homecare agency. A weight change of 20 pounds or more may have an effect on your equipment; if you are experiencing problems please call for an appointment. If you have any further questions, please call the [facility] at .
[2017-05-02] MEDS ORDERED: Sodium Polystyrene ORAL.SOL* 15 GM/60 ML BTL PO ONE (15:31)
--- NOTE | 2017-05-02 15:45 | CONSULT ---
Subjective Date of Service: 05/02/17 Interval History: This is a 56 year old male patient with history significant for CAD with stents in 2016, Cardiomyopathy, CKD since 2015, tobacco abuse, COPD, DM, hypertension that presented to the ER today with c/o epistaxis x2 days. Of significant note, patient is on Brilinta and xarelto and follows with Dr. Connell for cardiology and has history of elevated potassium, likely 2/2 his CKD. K is currently 5.6. Patient received intervention in the ER with a rhino-rocket and epistaxis is currently controlled. VS are stable, BP 127/61. H&H unremarkable at 9.2/29. Review of Systems - Measurements Intake and Output: Intake and Output Last 24 Hours 04/30/17 05/01/17 05/02/17 05/03/17 06:59 06:59 06:59 06:59 Weight 180 lb - Review of Systems Constitutional Symptoms: Negative: Weight Gain, Weight Loss, Weakness, Fatigue, Fever, Night Sweats, Unexplained Falls, Other Dermatology: Negative: Normal, Rash, Skin Lesions, Cancer, Skin Lumps, Other HEENT: Positive: Other - pressure left nare and bridge of nose Negative: Normal, Change in Hearing, Vertigo, Dental Problems, Tinnitus, Sinus Problem Eyes: Negative: Normal, Change in Vision, Double Vision, Eye Pain, Glaucoma, Cataract, Contacts or Glasses, Other Thyroid: Negative: Normal, Goiter, Thyroid Nodule, Cold Intolerance, Heat Intolerance , Sweatiness, Tremor, Frequent Defecation, Constipation, Palpitations, Primary Hypothyroidism, Primary Hyperthyroidism, Weight Loss, Weight Gain, Change in Skin/Hair, Change in Menstruation, Radiation Exposure, Other Pulmonary: Positive: Cough, COPD Cardiology: Negative: Normal, Chest Pain, Shortness of Breath, Palpitations, Swelling of Ankles, Peripheral Vascular Dis, Edema, Faintness, Syncope, Claudication, Proximal NocturnalDyspnea, Orthopnoea, Other Gastroenterology: Negative: Normal, Abdominal Pain, Nausea, Vomiting, Anorexia, Indigestion, Difficulty Swallowing, Heartburn, Constipation, Diarrhea, Blood in Stools, Change in Bowel Habits, Haematemesis, Melena, Other Genital - Urinary: Negative: Normal, Dysuria, Hematuria, Polyuria, Nocturia, Other Musculoskeletal: Negative: Joint Pain, Joint Stiffness, Arthritis, Osteoporosis, Low Back Pain , Sciatica, Joint Deformities, Kyphoscoliosis, Other Endocrinology: Positive: Diabetes Mellitus Negative: Normal, Thyroid Problems, Adrenal Problems, Gonadal Problems, Family Hx Endocrine Disorders, Obesity, Hyperglycemia, Hx Hypoglycemia, Diabetic Foot Ulcers, Calluses, Hirsutism, Menstral Abnormalities, Polydipsia, Polyuria, Gonadal Problems, Gynecomastia, Pituitary disease, Other Hematologic/Lymphatic: Positive: Use of Anticoagulant, Use of Antiplatelet Drugs Neurology: Negative: Normal, Headache, Migraines, Change in Vision, Diplopia, Dizziness , Change in Balancing, Change in Coordination, Change in Memory, Change in Speech, Change in Sphincter Function, Change in Walking, Numbness\Paresthesiae, Unexplained Weakness, Hx of Stroke\TIA, Hx of Seizures, Other Psychiatry: Positive: Normal Negative: Depression, Anxiety, Depressed Mood, Adhedonia, Sexual Dysfunction , Weight Change, Guilt Feelings, Tearfulness, Unusual Fatigue, Unusual Anxiety, Suicidal Ideation, Hypomania, Eating Disorders, Other Allergic/Immunologic: Negative: Hx Anaphylaxis, Hx Angioedema, Hx Environmental, Hx Seasonal, Athsma, Hx HIV, Immunocompromise, Swollen Glands LymphNodes, Other Objective Active Medications: See ER med rec Vital Signs - 8 hr 05/02/17 05/02/17 05/02/17 11:04 11:09 11:11 Temperature 97.1 F Pulse Rate 80 83 Respiratory 20 Rate Blood Pressure 196/110 164/88 (mmHg) O2 Sat by Pulse 98 97 Oximetry 05/02/17 05/02/17 05/02/17 11:30 11:33 11:36 Temperature Pulse Rate 83 79 Respiratory Rate Blood Pressure 188/91 153/64 (mmHg) O2 Sat by Pulse 98 97 Oximetry 05/02/17 05/02/17 05/02/17 11:44 11:47 11:50 Temperature Pulse Rate 81 79 Respiratory Rate Blood Pressure 157/71 127/55 (mmHg) O2 Sat by Pulse 98 97 Oximetry 05/02/17 05/02/17 05/02/17 12:00 12:30 13:00 Temperature Pulse Rate 75 75 83 Respiratory 23 23 Rate Blood Pressure 134/68 117/61 119/63 (mmHg) O2 Sat by Pulse 97 96 97 Oximetry 05/02/17 05/02/17 05/02/17 13:30 14:00 14:30 Temperature Pulse Rate 76 81 78 Respiratory 23 24 Rate Blood Pressure 118/58 139/75 121/67 (mmHg) O2 Sat by Pulse 96 97 96 Oximetry 05/02/17 14:59 Temperature Pulse Rate 83 Respiratory Rate Blood Pressure (mmHg) O2 Sat by Pulse 96 Oximetry Oxygen Devices in Use Now: None Appearance: Alert, NAD Eyes: No Scleral Icterus, PERRLA Ears/Nose/Mouth/Throat: Mucous Membranes Moist, - - poor dentition Neck: NL Appearance and Movements; NL JVP Respiratory: Symmetrical Chest Expansion and Respiratory Effort - diminished bases, no wheeze, rales or rhonchi Cardiovascular: NL Sounds; No Murmurs; No JVD, RRR, No Edema Abdominal: NL Sounds; No Tenderness; No Distention Extremities: No Edema, No Clubbing, Cyanosis Neurological: Alert and Oriented x 3, NL Sensation, NL Gait Nutrition: Taking PO's Result Diagrams: 05/02/17 11:40 05/02/17 11:40 Assessment/Plan - Billing Impression: 1. Epistaxis, persistent, now controlled 2. Hx of CAD with cardiomyopathy, on anticoagulation therapy 3. CKD at baseline with mildly elevated potassium 4. COPD, not in exacerbation 5. Tobacco abuse 6. HTN, initially elevated, now controlled Plan and Recommendations: - Cardiology was notified by ER physician, Dr. German is recommending discharge home - Treat elevated K level of 5.6 with 30gram kayexelate now - Hold Brilinta until seen by ENT to establish bleeding is controlled, then cardiology this week to restart - Recommend holding triamterene, as potassium sparing diuretic will likely continue to contribute to elevated K levels and adjust BP meds as needed - Monitor H&H and K level as an outpatient, should have labs this week - Highly recommend initiating follow up with Dr. Ackerman given ongoing renal dysfunction Code Status: Full Code Admission Status and Rationale: Clear for discharge to home with outpatient follow up. Thank you for the courtesy of this consult. Please reconsult if needed.
[2017-05-02 16:11] VITALS: BP 155/71
--- NOTE | 2017-05-03 05:15 | ED ---
Adwoa Griffiths Jason, scribed for Laura Alex MD on 05/02/17 at 1134 . Throat Pain/Nasal Congestion - HPI Summary HPI Summary: This patient is a 56 year old M BIBA to [facility] with a chief complaint of nose bleed since he woke up today. The patient states that he has had a nosebleed all morning long. Additionally, the patient states he has never had a nosebleed like this before. Pt wears a humidified CPAP mask for sleep apnea and states that he filled the CPAP mask with blood this am. Pt is spitting large amounts of blood into a basin upon initial evaluation and his triage blood pressure is very elevated at 196/110. His HR is afib at 80. Pt has PMH of [address] by Dr[address] Kelley 12/27/15 (per pt, his Unit Reactor Operator, later determined to be Dr. German) and has a hx of afib and HTN. The pt denies chest pain or SOB now, and denies any generalized pain or fever. Symptoms aggravated by nothing. Symptoms alleviated by nothing. Patient reports feeling like he is getting weaker. He regularly takes Brilinta and xarelto and aspirin and meds for HTN but was unable to take his medication today because of his condition. While Dr. Alex was in the room, the patients blood pressure was 164/85. Pt reports that he has never had this nose-bleed issue until he start Brilinta. The last time he had a nosebleed was a long time ago. The patient's medications as of 07/10/16 per a sheet that pt brings to the ED are as follows: Heart medications include Brilinta 90 mg twice a day, Lisinopril 2.5 mg once a day, diltiazem 30 mg twice a day, Triamterene/HCTZ 37.5 /25 mg once a day, Aspirin 81 mg once a day, Metoprolol Succinate ER 25 mg once a day, Atorvastatin 80 mg a day. Stomach medication includes Omeprazole 20 mg once a day. Diabetes medication includes Janumet 50-1000 mg twice a day. Pain medications include Gabapentin 300 mg twice a day and Celecoxib 200 mg one tablet NEEDED. Breathing/Allergy medications include Cetirizine 10mg once daily, symbicort 160-4.5 mg 2 puffs twice a day, and Ventolin NEEDED. Pharmacy [facility] confirms that pt is also on Xarelto 20mg daily. - History of Current Complaint Chief Complaint: EDBleedingDisorder Time Seen by Provider: 05/02/17 11:09 Hx Obtained From: Patient Onset/Duration: Sudden Onset, Lasting Hours - "all morning long", Still Present Severity: Severe Associated Signs And Symptoms: Positive: Negative - CP, general pain, SOB, Nasal Discharge - epistaxis Cough: None - Allergies/Home Medications Allergies/Adverse Reactions: Allergies Allergy/AdvReac Type Severity Reaction Status Date / Time shellfish derived Allergy Unknown Verified 04/22/17 16:28 Reaction Details Contrast dye Allergy Unknown Uncoded 04/22/17 16:28 Reaction Details Home Medications: Home Medications Atorvastatin* [Lipitor 80 MG*] 80 mg PO DAILY 05/02/17 [History Confirmed ] Rivaroxaban TAB(*) [Xarelto 10 mg (*)] 20 mg PO DAILY 05/02/17 [History Confirmed 05/02/17] Sitagliptin Phos/Metformin HCl [Janumet 50-1000 mg] 1 tab PO BID 05/02/17 [ History Confirmed 05/02/17] celeCOXIB CAP* [CeleBREX CAP*] 200 mg PO DAILY PRN 05/02/17 [History Confirmed 05/02/17] PMH/Surg Hx/FS Hx/Imm Hx Previously Healthy: No Endocrine/Hematology History: Reports: Hx Diabetes Denies: Hx Anticoagulant Therapy, Hx Blood Disorders, Hx Blood Transfusions, Hx Bone Marrow Disease, Hx Systemic Lupus Erythematosus, Hx Sickle Cell Disease , Hx Thyroid Disease, Hx Anemia, Hx Unexplained Bleeding, Other Endocrine/ Hematological Disorders Cardiovascular History: Reports: Hx Angina, Hx Angioplasty, Hx Atrial Fibrillation, Hx Coronary Artery Disease, Hx Hypercholesterolemia, Hx Hypertension, Hx Pacemaker/ICD - 2008 Denies: Hx Aneurysm, Hx Auto Implanted Cardiovert Defib, Hx Cardiac Arrest, Hx Cardiomegaly, Hx Congenital Heart Disease, Hx Congestive Heart Failure, Hx Deep Vein Thrombosis, Hx Embolism, Hx Hypotension, Hx Myocardial Infarction, Hx Peripheral Vascular Disease, Hx Rheumatic Fever, Hx Syncope, Hx Valvular Heart Disease, Other Cardiovascular Problems/Disorders Respiratory History: Reports: Hx 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 Denies: Hx Chronic Bronchitis, Hx Chronic Obstructive Pulmonary Disease (COPD ), Hx Cystic Fibrosis, Hx Lung Cancer, Hx Pleural Effusion, Hx Pneumonia, Hx Pulmonary Edema, Hx Pulmonary Embolism, Hx Seasonal Allergies, Hx Sleep Apnea, Other Respiratory Problems/Disorders GI History: Reports: Hx Gastroesophageal Reflux Disease Denies: Hx Cirrhosis, Hx Crohn's Disease, Hx Diverticulosis, Hx Gall Bladder Disease, Hx Gastrointestinal Bleed, Hx Hiatal Hernia, Hx Irritable Bowel, Hx Jaundice, Hx Obstructive Bowel, Hx Ileostomy, Hx Pyloric Stenosis, Hx Ulcer, Other GI Disorders History: Reports: Hx Kidney Stones - LEFT Denies: Hx Acute Renal Failure, Hx Benign Prostatic Hyperplasia, Hx Chronic Renal Failure, Hx Dialysis, Hx Kidney Infection, Hx Renal Disease, Other Problems/Disorders Musculoskeletal History: Reports: Hx Arthritis - BILATERAL HANDS AND LEGS Denies: Hx Back Problems, Hx Bursitis, Hx Congenital Bone Abnormalities, Hx Fibromyalgia, Hx Gout, Hx Orthopedic Injury, Hx Osteoporosis, Hx Scoliosis, Hx Tendonitis, Other Musculoskeletal History Sensory History: Reports: Hx Contacts or Glasses Denies: Hx Hearing Aid Opthamlomology History: Reports: Hx Contacts or Glasses Neurological History: Denies: Hx Dementia, Hx Seizures, Other Neuro Impairments/Disorders Psychiatric History: Reports: Hx Depression Denies: Hx Anxiety, Hx Attention Deficit Hyperactivity Disorder, Hx Eating Disorder, Hx Panic Disorder, Hx Post Traumatic Stress Disorder, Hx Inpatient Treatment, Hx Community Mental Health Tx, Hx Schizophrenia, Hx Bipolar Disorder , Hx Suicide Attempt, Hx of Violent Episodes Against Others, Hx Substance Abuse , Other Psychiatric Issues/Disorders - Surgical History Surgery Procedure, Year, and Place: PACEMAKER [facility] [place] 2008. APPENDECTOMY [facility] [place]. MULTIPLE CYSTO, L STENT, L ESWL PROCEDURES [facility] [place]. CARDIAC CATH X3 2009, 2015 Hx Anesthesia Reactions: No - Immunization History Date of Tetanus Vaccine: Unknown Infectious Disease History: No Infectious Disease History: Denies: Hx Clostridium Difficile, Hx Hepatitis, Hx Human Immunodeficiency Virus (HIV), Hx Tuberculosis, Traveled Outside the [place] in Last 30 Days - Family History Known Family History: Positive: Cardiac Disease, Hypertension - Social History Alcohol Use: None Alcohol Amount: 2-3 PER DAY Substance Use Type: Reports: None Smoking Status (MU): Former Smoker Type: Cigarettes Amount Used/How Often: 2 PACKS A DAY Length of Time of Smoking/Using Tobacco: MANY YRS Have You Smoked in the Last Year: No Review of Systems Constitutional: Negative Positive: Epistaxis - right nostril only Negative: Chest Pain Negative: Shortness Of Breath Skin: Negative Neurological: Negative Psychological: Normal All Other Systems Reviewed And Are Negative: Yes Physical Exam - Summary Physical Exam Summary: Appearance: Ill-appearing, no pain distress, Well-nourished, Pt pinching his nostrils as instructed, large amounts blood coming from right nostril only, pt expectorating blood. Pt hypertensive. Skin: Warm, color reflects adequate perfusion Head: Atraumatic, epistaxis Eyes: Conjunctiva clear ENT: Large amount of bright red blood coming out of right nostril. Denies pain. Right nostril with eroded mucosa of the floor of the nostril. No discrete bleeding site identified. Post pharynx with blood visible, clears once epistaxis controlled with Rhino rocket Neck: Supple, no nodes, no JVD. Respiratory: Lungs clear, Normal breath sounds, no respiratory distress Cardio: irreg rhythm, controlled rate, No murmur, pulses normal, brisk capillary refill Abdomen: soft, nontender Bowel sounds: present Musculoskeletal: Strength Intact/ ROM intact. No calf tenderness. No edema. Neuro: Alert, muscle tone normal, facial symmetry, speech normal, sensory/motor intact Psychological: Normal Triage Information Reviewed: Yes Vital Signs On Initial Exam: Initial Vitals Temp Pulse Resp BP Pulse Ox 97.1 F 80 20 196/110 98 05/02/17 11:04 05/02/17 11:04 05/02/17 11:04 05/02/17 11:04 05/02/17 11:04 Vital Signs Reviewed: Yes Diagnostics - Vital Signs Vital Signs Temp Pulse Resp BP Pulse Ox 05/02/17 11:04 97.1 F 80 20 196/110 98 - Laboratory Lab Results: Lab Results 05/02/17 05/02/17 05/02/17 Range/Units 11:40 11:40 11:40 WBC 15.2 H (3.5-10.8) 10^3/ul RBC 3.67 L (4.0-5.4) 10^6/ul Hgb 9.2 L (14.0-18.0) g/dl Hct 29 L (42-52) % MCV 79 L (80-94) fL MCH 25 L (27-31) pg MCHC 32 (31-36) g/dl RDW 14 (10.5-15) % Plt Count 197 (150-450) 10^3/ul MPV 9 (7.4-10.4) um3 Neut % (Auto) 87.1 H (38-83) % Lymph % (Auto) 6.7 L (25-47) % [place] % (Auto) 4.5 (0-7) % Eos % (Auto) 0.9 (0-6) % Baso % (Auto) 0.8 (0-2) % Absolute Neuts (auto) 13.3 H (1.5-7.7) 10^3/ul Absolute Lymphs (auto) 1.0 (1.0-4.8) 10^3/ul Absolute Monos (auto) 0.7 (0-0.8) 10^3/ul Absolute Eos (auto) 0.1 (0-0.6) 10^3/ul Absolute Basos (auto) 0.1 (0-0.2) 10^3/ul Absolute Nucleated RBC 0 10^3/ul Nucleated RBC % 0 INR (Anticoag Therapy) 1.24 H (0.77-1.02) APTT 38.1 H (26.0-36.3) seconds Sodium 134 (133-145) mmol/L Potassium 5.5 H (3.5-5.0) mmol/L Chloride 107 (101-111) mmol/L Carbon Dioxide 21 L (22-32) mmol/L Anion Gap 6 (2-11) mmol/L BUN 47 H (6-24) mg/dL Creatinine 1.63 H (0.67-1.17) mg/dL Est GFR ( Amer) 56.6 (>60) Est GFR (Non-Af Amer) 44.0 (>60) BUN/Creatinine Ratio 28.8 H (8-20) Glucose 226 H (70-100) mg/dL Calcium 9.1 (8.6-10.3) mg/dL Total Bilirubin 0.40 (0.2-1.0) mg/dL AST 19 (13-39) U/L ALT 31 (7-52) U/L Alkaline Phosphatase 107 H (34-104) U/L Troponin I 0.01 (<0.04) ng/mL Total Protein 7.0 (6.4-8.9) g/dL Albumin 4.2 (3.2-5.2) g/dL Globulin 2.8 (2-4) g/dL Albumin/Globulin Ratio 1.5 (1-3) Result Diagrams: 05/02/17 11:40 05/02/17 11:40 Lab Statement: Any lab studies that have been ordered have been reviewed, and results considered in the medical decision making process. - EKG 1434 Cardiac Rate: NL EKG Rhythm: Atrial Fibrillation - [address] Segment: Non-Specific Ectopy: None EKG Interpretation: An EKG at 1434 reveals nml IVCT, nml QTc, and left axis deviation (-33). EKG Comparison: Other - compard with 11/03/16 pt isnow in A-fib Re-Evaluation - Re-Evaluation First Eval Re-Evaluation Time: 11:35 Change: Unchanged Comment: Dr. Alex applied 2 sprays of afrin in the right nostril. Rhino Rocket instilled in right nare and filled with sterile saline. Second Eval Re-Evaluation Time: 12:27 Change: Improved Comment: the patient's blood pressure is 117/61 and pulse is 80 bpm. There is no blood in his posterior pharynx or his nares. EENT Course/Dx - Course Course Of Treatment: Allergies noted, High blood pressure noted, Pt medications reviewed this visit. Pt was given one dose of labetalol 5mg IV with good control of his HTN. Pt was also given one dose of kayexalate 30 gms for K+ 5.5 associated with CKD, and has been a chronic problem for pt in the past. PROCEDURE: RHINO ROCKET PLACED: Two sprays of 0.05% oxymetalozine were instilled into the patient's right nostril. There is an area of friable mucosa at the base of the right nare. There is no discrete bleeding site. A 4.5 cm RhinoRocket soaked in sterile saline and was placed in the right nostril and inflated with three CCs of saline. Following this, the patient's condition is stable. There is no blood noted in the posterior pharynx following the use of the RhinoRocket. At [address] Dr. Alex spoke with Dr. Kelley, who stated Fer Pratt is not his patient. He directed Dr. Alex to Dr. German, who is the patient's restaurant mgr. At 14:12 Dr. Alex spoke with Dr. German who recommended the patient hold Brilinta and have the pt follow up with him in his office. He also includes the last cardiac catheterization was 12/27/2015 and the pt is on Xarelto for A-fib. At 14:[address] Holt (ENT), who agrees with the RhinoRocket treatment, recommends that the rhinorocket stay in place until he is able to see the patient in 2-[address]. [address] Stanton regarding pt's hyperkalemia who sent Pastor Corado ( MANAGER BIOSTATISTICS Hospitalist), who recommended 1 dose of kayexalate before the patient can go home, and advised that the patient stop triamterene. - Differential Diagnoses Differential Diagnoses: Acute Coronary Syndrome, Epistaxis, Other - HTN - Diagnoses Provider Diagnoses: elevated BP under poor control, Epistaxis, Hypertensive urgency, Hyperkalemia, Stage 3 chronic kidney disease, Afib, hx CAD on Brilinta, xarelto anticoagulation - Provider Notifications Discussed Care Of Patient With: Timmy German Time Discussed With Above Provider: 14:15 - may DC Brilinta until seen in office. Continue xarelto and ASA. Also discussed with Dr. Holt who will follow up in office and advises leave RhinoRocket in place, and Dr. Stanton and hospitalist MANAGER BIOSTATISTICS who advise re: treatment of hyperkalemia - Critical Care Time Critical Care Time: 30-74 min - 30 minutes Discharge - Discharge Plan Condition: Stable Disposition: HOME Patient Education Materials: Chronic Kidney Disease (ED), Nosebleed (ED), Hyperkalemia (ED) Referrals: Erasmo Hill MD [Primary Care Provider] - Francisco Holt MD [Medical Doctor] - 2 Days Timmy German MD [Medical Doctor] - 2 Days Additional Instructions: Stop the Brilinta. Stop the Triamterene. You were given one dose of kayexalate for your elevated potassium of 5.5. You will need to see Dr. Holt the logistics research engineer about your nosebleed. Leave the RhinoRocket in your right nostril until you see Dr. Holt. You will also need to see Dr. German about when and if he might want to restart the Brilinta, and what he will want to change the triamterene medication to for your hypertension. You may use your CPAP machine with the RhinoRocket in place. Return to the ER if you have new or worsening symptoms. The documentation as recorded by the Adwoa dove Jason accurately reflects the service I personally performed and the decisions made by , Laura Alex MD.
== END 2017-05-02 16:10 | disposition home or self-care (01) ==
LOC: ED 10:59
DX: R04.0 Epistaxis (principal); E87.5 Hyperkalemia; I48.91 Unspecified atrial fibrillation; Z79.01 Long term (current) use of anticoagulants; Z95.0 Presence of cardiac pacemaker; Z87.891 Personal history of nicotine dependence; G47.30 Sleep apnea, unspecified; I12.9 Hypertensive chronic kidney disease with stage 1 through stage 4 chronic kidney disease, or unspecified chronic kidney disease; Z79.84 Long term (current) use of oral hypoglycemic drugs; I25.10 Atherosclerotic heart disease of native coronary artery without angina pectoris; J45.909 Unspecified asthma, uncomplicated; J44.9 Chronic obstructive pulmonary disease, unspecified; Z72.0 Tobacco use; N18.9 Chronic kidney disease, unspecified; R94.31 Abnormal electrocardiogram [ECG] [EKG]
CPT/HCPCS: 36415; 80053; 84484; 85025; 85610; 85730; 93005; 96374; 99282; A9270-GY

== ENCOUNTER 2017-05-03 11:05 | Observation (INO) | payer MEDICARE, MEDICAID ==
[2017-05-03 11:59] LABS: ABS Basophils 0 10^3/ul (0-0.2); ABS Eosinophils 0.1 10^3/ul (0-0.6); ABS Monocytes 0.4 10^3/ul (0-0.8); ABS Nucleated RBC 0 10^3/ul; Eosinophil % 1.8 % (0-6); Hematocrit 26 % (42-52); Hemoglobin 8.3 g/dl (14.0-18.0); Lymphocyte % 13.3 % (25-47); Mean Corpuscular HGB Conc 32 g/dl (31-36); Mean Corpuscular Hemoglobin 25 pg (27-31); Mean Corpuscular Volume 79 fL (80-94); Mean Platelet Volume 9 um3 (7.4-10.4); Nucleated Red Blood Cells % 0; Platelet Count 163 10^3/ul (150-450); Red Blood Count 3.27 10^6/ul (4.0-5.4); Red Cell Distribution Width 14 % (10.5-15); White Blood Count 7.6 10^3/ul (3.5-10.8)
[2017-05-03 12:15] LABS: EGFR Non-African American 58.7 (>60)
--- NOTE | 2017-05-03 13:19 | RAD ---
INDICATION: Shortness of breath. COMPARISON: Most recent comparison chest x-ray is dated November 03, 2016 TECHNIQUE: Single AP portable view of the chest was obtained. FINDINGS: Image quality is compromised due to the relative inferiority of a portable chest x-ray. 2-lead left upper chest cardiac pacemaker is unchanged from the prior chest x-ray. The heart and mediastinum exhibit normal size and contour. The lungs are grossly clear. There is no evidence of a large pleural effusion. Visualized bones are normal for the patient's age. IMPRESSION: No radiographic evidence for acute cardiopulmonary abnormality on this portable chest x-ray.
[2017-05-03] MEDS ORDERED: Magnesium Sulfate 1 GM IV* 1 GM/100 ML BAG IV ONE (16:11)
[2017-05-03] MEDS ORDERED: Albuterol HFA INHALER* 8 gm MDI INH PRN (16:20)
[2017-05-03] MEDS ORDERED: Dextrose 50% Syringe 50 ML* 25 GM/50 ML SYRINGE IV PUSH PRN (16:23)
[2017-05-03] MEDS ORDERED: Nitroglycerin TAB 0.4 MG* 0.4 MG TAB SL PRN (16:26)
[2017-05-03] MEDS: Insulin LISPRO* 1 UNITS UNIT SUBCUT SCH ×2 (18:24→20:14)
[2017-05-03] MEDS: Mometasone/Formoter 200/5 MDI INH SCH (19:44)
[2017-05-03] MEDS: Gabapentin CAP(*) 300 MG PO SCH (20:15)
[2017-05-03 21:33] LABS: Hematocrit 24 % (42-52)
--- NOTE | 2017-05-03 21:49 | HP ---
AMENDED REPORT NOW INCLUDES COSIGNER DESIGNATION - ESIGNED BEFORE ADJUSTMENT CC: Dr. Hill * ADMISSION HISTORY AND PHYSICAL: DATE OF ADMISSION: 05/03/17 PRIMARY CARE PHYSICIAN: Dr. Hill. PRIMARY OFFICE SYSTEMS TECHNOLOGY INSTRUCTOR: Dr. German. ATTENDING FOR THIS ADMISSION: Dr. Alexia Stanton.* (DICTATED BY MARCELA ROSS, DANIEL) CHIEF COMPLAINT: Chest pain and discharge of AICD. HISTORY OF PRESENT ILLNESS: This is a pleasant 56-year-old male patient who was in the emergency department yesterday for a complaint of epistaxis x2 days. The patient had an essentially unremarkable workup in the ER yesterday, received a Rhino Rocket device to the right naris. Hemostasis was maintained. Hemoglobin was stable as was his heart rate and blood pressure. Consult from the ER with Cardiology yesterday stated it was okay for the patient to go home and stop taking his Brilinta and then followup with Cardiology and ENT this week. The patient desired at that time to be discharged to home with outpatient followup and he was. However, last night before he went to sleep, the patient states that he started having some midsternal chest pain. The patient took his nitro with no relief, but then decided he was tired and went to sleep. At approximately 5 o'clock this morning, his AICD discharged and woke him up from the [facility] sleep and he subsequently called EMS services and was brought into the emergency department for rapid evaluation. Of significant note, the patient does have a [employer] device. We were unable to interrogate his AICD in the ER. However, on his telemetry, he is having baseline atrial fibrillation, which is known, but he is having runs of V-tach 6 beats, 5 beats, and another 3 beats. The patient states he is just feeling fatigued. His chest pain is resolved at this point; however, he is just overall having some general malaise. We were referred for evaluation of this patient and for admission into the hospital given his acute changes overnight. PAST MEDICAL HISTORY: Significant for: 1. Dilated cardiomyopathy. 2. CKD. 3. Tobacco abuse. 4. COPD. 5. Diabetes mellitus. 6. Coronary artery disease. 7. Hyperkalemia. PAST SURGICAL HISTORY: Significant for: 1. Stents in 2015. 2. Pacemaker insertion in 2007. 3. Appendectomy. 4. Cystoscopy with stent. 5. Cardiac cath x3, last one was in 2016. MEDICATIONS: At home include: 1. Xarelto 20 mg daily. 2. Baby aspirin 81 mg daily. 3. Atorvastatin 80 mg daily. 4. Symbicort 2 puffs 2 times a day. 5. Zyrtec 10 mg daily. 6. Ventolin inhaler 1 puff 2 times a day as needed. 7. Omeprazole 20 mg daily. 8. Metoprolol succinate XL 25 mg daily. 9. Lisinopril 2.5 mg in the morning. 10. Gabapentin 300 mg 2 times a day. 11. Celebrex 200 mg daily as needed. 12. Triamterene/hydrochlorothiazide 37.5/25 one tablet daily. 13. Brilinta 90 mg 2 times a day, which has been on hold since the bleeding. 14. Sitagliptin/metformin 50/100 mg 1 tablet 2 times a day. ALLERGIES: The patient has an allergy to CONTRAST DYE and SHELLFISH. SOCIAL HISTORY: The patient does smoke every day. States alcohol 2 to 3 drinks per day and denies any illicit drug use. FAMILY HISTORY: Significant for cardiac disease on both parents sides, mother and father both with cardiac disease. REVIEW OF SYSTEMS: A 10-point review of systems is negative except as noted in the HPI. PHYSICAL EXAMINATION GENERAL: The patient is awake and alert, ill-appearing, in no acute distress. VITAL SIGNS: Currently, blood pressure 141/84, heart rate 95, atrial fibrillation on monitor currently, respiratory rate is 19, satting at 97% on room air, temperature is 98.6. HEENT: The patient is atraumatic, normocephalic. PERRLA. Nonicteric sclerae. Has some drainage from the right eye. This is also coinciding with the same side that the Rhino Rocket is on which is the right naris. No exudate or discoloration noted, just primarily tearing of the right eye. Dentition is poor. Oral mucosa is moist. NECK: Supple, nontender. No JVD noted. No carotid bruits auscultated. LUNGS: Diminished bilaterally and no wheezing, rhonchi, or rales noted. CARDIOVASCULAR: S1, S2 present. Rate and rhythm are irregular, 80s to 90s. Again, atrial fibrillation with some runs of V-tach earlier in the day. ABDOMEN: Soft, nontender, nondistended. No organomegaly appreciated. No bruits noted. : Deferred. MUSCULOSKELETAL: There is no clubbing, no cyanosis, no edema. He has +2 distal pulses palpable and intact. He has an ambulatory gait. NEUROLOGIC: Grossly intact with no focal deficits. PSYCHIATRIC: He is cooperative and appropriate. LABORATORY DATA: Laboratories today show WBCs 7.6, RBCs 3.27, hemoglobin 8.3 which is down from 9.2 from yesterday, hematocrit 26, MCV 29, MCH 25, platelets 163. Chemistry shows sodium 136, potassium 4.3, chloride 106, CO2 25, BUN 29, creatinine 1.27, GFR is 58.7, glucose 186, lactic acid 0.9, calcium 9.4, magnesium level is pending. Bilirubin 0.4, AST 15, ALT 25, alk phos 92. Troponin is negative at 0.01 and 0.01, last drawn at 2:45 p.m. BNP is 205. Total protein 6.6, albumin 3.9, globulin 2.7. Coags from 05/02/17 shows an INR of 1.24 and a PTT of 38.1. D-dimer today is less than 200. IMAGING: EKG shows atrial fibrillation and controlled ventricular response. Again, earlier strips showed some runs of V-tach. Most recent chest x-ray was from yesterday and today essentially the same. Today's chest x-ray readings shows no radiographic evidence for acute cardiopulmonary abnormality, which is no change again from 05/02/17. IMPRESSION: This is a 56-year-old male patient with complicated cardiac history , who has had recent epistaxis and over the last night had some unstable angina , requiring nitroglycerin and then subsequent discharge of his AICD at 5 o' clock this morning. PLAN: The patient will be admitted to observation service under medicine. DIAGNOSES: 1. Chest pain, unstable angina. 2. History of coronary artery disease with cardiomyopathy, on anticoagulation therapy. 3. Ventricular tachycardia with AICD firing. 4. Chronic kidney disease. 5. History of hyperkalemia. 6. Chronic obstructive pulmonary disease, not in exacerbation. 7. History of tobacco abuse. 8. Hypertension. 9. Acute microcytic hypochromic anemia secondary to blood loss. 10. Diabetes mellitus type 2. Again, the patient has been admitted to medical service. We will continue his home medications; however, as was recommended by Cardiology yesterday, we will continue to hold his Brilinta. I have also held his triamterene and hydrochlorothiazide given his renal function and elevated potassium yesterday. Currently, we will continue his metoprolol, his statin, his baby aspirin, his Xarelto. He can also have p.r.n. Tylenol as needed and we will start him on a bowel regimen. [employer] has already been contacted to interrogate his pacemaker. The ER nurse, Heather spoke with Monty who will come in tomorrow, 05/04 between 10 and 11 in the morning to interrogate his pacemaker to see if pacemaker needs to be adjusted or if it is going to guide medical management at this point. Dr. Troy Holm who is on- call for Cardiology was consulted by the emergency department already and agrees that the patient should be admitted for pacemaker interrogation. If there are acute changes with his pacemaker interrogation, we will formally consult Cardiology tomorrow. We are waiting for his mag level; however, given his ventricular arrhythmias, we will give him 1 g of magnesium now. Continue him on telemetry monitoring. I think given the nature of his situation, we should place him on continuous tele as supposed to letting him go off tele for testing. He can have a heart healthy, carb controlled diet. DVT prophylaxis. He already has a supratherapeutic INR and is on Xarelto and he is ambulatory. So, we will not add any additional anticoagulation. He is a full code. The patient's medical healthcare proxy is India Eller who is his significant other. The rest of the patient's course will be determined by further diagnostics, laboratories and then the other input from other providers as warranted during this admission. We will follow the patient closely, follow his labs closely in the morning and we will act on any new findings as a result of his interrogation tomorrow. This plan of care has been discussed with Dr. Alexia Stanton, the attending on this case who is in agreement with this plan. MARCELA ROSS, PRESS OPERATOR HELPER [id number]/[facility] #: [id number] [facility] CENTERPilar
[2017-05-03] MEDS ORDERED: Acetaminophen TAB* 325 MG PO PRN (22:24)
--- NOTE | 2017-05-03 23:06 | PN ---
Hospitalist Progress Note Date of Service: 05/03/17 Called by RN who reported disorientation. I saw and examined Mr. Pratt, and he could not tell me the year or his birthdate, nor the name of the president. He was otherwise neurologically in tact. I called his girlfriend India, who reports that this is baseline for him. She also reports that he commonly becomes more disoriented when he is out of his usual settings.
[2017-05-04 06:29] LABS: EGFR Non-African American 58.7 (>60)
[2017-05-04] MEDS: Mometasone/Formoter 200/5 MDI INH SCH (07:10)
[2017-05-04] MEDS: Insulin LISPRO* 1 UNITS UNIT SUBCUT SCH ×2 (08:25→12:07)
[2017-05-04] MEDS: Gabapentin CAP(*) 300 MG PO SCH (08:26)
[2017-05-04] MEDS ORDERED: Magnesium Sulfate 1 GM IV* 1 GM/100 ML BAG IV ONE (08:51)
[2017-05-04] MEDS ORDERED: Magnesium Oxide TAB* 400 MG PO SCH (09:00)
[2017-05-04] MEDS ORDERED: Lisinopril TAB* 5 MG PO SCH (09:00)
[2017-05-04] MEDS ORDERED: Metoprolol Succinate XL TAB* 25 MG PO SCH (09:00)
[2017-05-04] MEDS ORDERED: Aspirin Low Dose CHEW TAB* 81 MG PO SCH (09:00)
[2017-05-04] MEDS ORDERED: Atorvastatin* 80 MG TAB PO SCH (09:00)
[2017-05-04] MEDS ORDERED: Omeprazole CAP* 20 MG PO SCH (09:00)
[2017-05-04] MEDS ORDERED: Rivaroxaban TAB(*) 20 MG TAB PO SCH (09:00)
[2017-05-04] MEDS ORDERED: Amoxicillin/Clavulanate TAB* 875 MG PO SCH (10:00)
[2017-05-04 13:15] VITALS: BP 127/59
--- NOTE | 2017-05-04 20:04 | ED ---
Cher Griffiths Thomas, scribed for Jl Gonzalez MD on 05/03/17 at 1139 . HPI Chest Pain - HPI Summary HPI Summary: The patient is a 56 year old male who was evaluated in the emergency department last night for a nosebleed, and a rhino rocket was placed. Today, the patient developed chest pain at 03:00 when he was sleeping that has gradually worsened. He took SL NTG to no relief of pain. The pain radiates to his neck and is described as sharp. He denies shortness of breath or any other symptoms. Past medical history includes CAD, pacemaker, and A-Fib. The patient has a follow up appointment with Dr. Chacon in two days. - History of Current Complaint Chief Complaint: EDChestPainROMI Time Seen by Provider: 05/03/17 11:16 Hx Obtained From: Patient Onset/Duration: Started Hours Ago - onset today at 03:00, Still Present Timing: Constant Current Severity: Mild Pain Intensity: 2 Pain Scale Used: 0-10 Numeric Chest Pain Radiates: Yes Chest Pain Radiates To:: Neck Character: Sharp/Stabbing Aggravating Factor(s): Nothing Alleviating Factor(s): Nothing - NTG does not alleviate Associated Signs and Symptoms: Positive: Chest Pain. Negative: Fever - Allergy/Home Medications Allergies/Adverse Reactions: Allergies Allergy/AdvReac Type Severity Reaction Status Date / Time shellfish derived Allergy Unknown Verified 04/22/17 16:28 Reaction Details Contrast dye Allergy Unknown Uncoded 04/22/17 16:28 Reaction Details PMH/Surg Hx/FS Hx/Imm Hx Endocrine/Hematology History: Reports: Hx Diabetes Denies: Hx Anticoagulant Therapy, Hx Blood Disorders, Hx Blood Transfusions, Hx Bone Marrow Disease, Hx Systemic Lupus Erythematosus, Hx Sickle Cell Disease , Hx Thyroid Disease, Hx Anemia, Hx Unexplained Bleeding, Other Endocrine/ Hematological Disorders Cardiovascular History: Reports: Hx Angina, Hx Angioplasty, Hx Atrial Fibrillation, Hx Coronary Artery Disease, Hx Hypercholesterolemia, Hx Hypertension, Hx Pacemaker/ICD - 2008 Denies: Hx Aneurysm, Hx Auto Implanted Cardiovert Defib, Hx Cardiac Arrest, Hx Cardiomegaly, Hx Congenital Heart Disease, Hx Congestive Heart Failure, Hx Deep Vein Thrombosis, Hx Embolism, Hx Hypotension, Hx Myocardial Infarction, Hx Peripheral Vascular Disease, Hx Rheumatic Fever, Hx Syncope, Hx Valvular Heart Disease, Other Cardiovascular Problems/Disorders Respiratory History: Reports: Hx 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 Denies: Hx Chronic Bronchitis, Hx Chronic Obstructive Pulmonary Disease (COPD ), Hx Cystic Fibrosis, Hx Lung Cancer, Hx Pleural Effusion, Hx Pneumonia, Hx Pulmonary Edema, Hx Pulmonary Embolism, Hx Seasonal Allergies, Hx Sleep Apnea, Other Respiratory Problems/Disorders GI History: Reports: Hx Gastroesophageal Reflux Disease Denies: Hx Cirrhosis, Hx Crohn's Disease, Hx Diverticulosis, Hx Gall Bladder Disease, Hx Gastrointestinal Bleed, Hx Hiatal Hernia, Hx Irritable Bowel, Hx Jaundice, Hx Obstructive Bowel, Hx Ileostomy, Hx Pyloric Stenosis, Hx Ulcer, Other GI Disorders History: Reports: Hx Kidney Stones - LEFT Denies: Hx Acute Renal Failure, Hx Benign Prostatic Hyperplasia, Hx Chronic Renal Failure, Hx Dialysis, Hx Kidney Infection, Hx Renal Disease, Other Problems/Disorders Musculoskeletal History: Reports: Hx Arthritis - BILATERAL HANDS AND LEGS Denies: Hx Back Problems, Hx Bursitis, Hx Congenital Bone Abnormalities, Hx Fibromyalgia, Hx Gout, Hx Orthopedic Injury, Hx Osteoporosis, Hx Scoliosis, Hx Tendonitis, Other Musculoskeletal History Sensory History: Reports: Hx Contacts or Glasses Denies: Hx Cataracts, Hx Glaucoma, Hx Hearing Aid Opthamlomology History: Reports: Hx Contacts or Glasses Denies: Hx Cataracts, Hx Glaucoma Neurological History: Denies: Hx Dementia, Hx Headaches, Hx Seizures, Hx Transient Ischemic Attacks (TIA), Other Neuro Impairments/Disorders Psychiatric History: Reports: Hx Depression Denies: Hx Anxiety, Hx Attention Deficit Hyperactivity Disorder, Hx Eating Disorder, Hx Panic Disorder, Hx Post Traumatic Stress Disorder, Hx Inpatient Treatment, Hx Community Mental Health Tx, Hx Schizophrenia, Hx Bipolar Disorder , Hx Suicide Attempt, Hx of Violent Episodes Against Others, Hx Substance Abuse , Other Psychiatric Issues/Disorders - Surgical History Surgery Procedure, Year, and Place: PACEMAKER [facility] [place] 2008. APPENDECTOMY [facility] [place]. MULTIPLE CYSTO, L STENT, L ESWL PROCEDURES [facility] [place]. CARDIAC CATH X3 2009, 2016 Hx Anesthesia Reactions: No - Immunization History Date of Tetanus Vaccine: Unknown Infectious Disease History: No Infectious Disease History: Denies: Hx Clostridium Difficile, Hx Hepatitis, Hx Human Immunodeficiency Virus (HIV), Hx Tuberculosis, Traveled Outside the [place] in Last 30 Days - Family History Known Family History: Positive: Cardiac Disease, Hypertension - Social History Alcohol Use: None Alcohol Amount: 2-3 PER DAY Substance Use Type: Reports: None Smoking Status (MU): Former Smoker Type: Cigarettes Amount Used/How Often: 2 PACKS A DAY Length of Time of Smoking/Using Tobacco: MANY YRS Have You Smoked in the Last Year: No Review of Systems Negative: Fever Positive: Chest Pain Negative: Shortness Of Breath All Other Systems Reviewed And Are Negative: Yes Physical Exam - Summary Physical Exam Summary: Appearance: The patient is well-nourished in no acute distress and in no acute pain. Skin: The skin is warm and dry and skin color reflects adequate perfusion. HEENT: ~The head is normocephalic and atraumatic. The pupils are equal and reactive. The conjunctivae are clear and without drainage. There is a rhino rocket in the nose. Mouth reveals moist mucous membranes and the throat is without erythema and exudate. The external ears are intact. The ear canals are patent and without drainage. The tympanic membranes are intact. Neck: the neck is supple with full range of motion and non-tender. There are no carotid bruits. ~There is no neck vein distension. Respiratory: He is tender over the area of the pacemaker. Lungs are clear to auscultation and breath sounds are symmetrical and equal. Cardiovascular: Hear is irregular and borderline tachycardic. There is no murmur or rub auscultated. ~~There is no peripheral edema and pulses are symmetrical and equal. Abdomen: The abdomen is soft and non-tender. ~There are normal bowel sounds heard in all four quadrants and there is no organomegaly palpated. Musculoskeletal: There is no back tenderness noted. ~Extremities are non-tender with full range of motion. ~There is good capillary refill. There is no peripheral edema or calf tenderness elicited. Neurological: Patient is alert and oriented to person, place and time. ~The patient has symmetrical motor strength in all four extremities. ~Cranial nerves are grossly intact. Deep tendon reflexes are symmetrical and equal in all four extremities. Psychiatric: The patient has an appropriate affect and does not exhibit any anxiety or depression. Triage Information Reviewed: Yes Vital Signs On Initial Exam: Initial Vitals Temp Pulse Resp BP Pulse Ox 98.6 F 88 16 141/81 99 05/03/17 11:05 05/03/17 11:05 05/03/17 11:05 05/03/17 11:05 05/03/17 11:05 Vital Signs Reviewed: Yes Diagnostics - Vital Signs Vital Signs Temp Pulse Resp BP Pulse Ox 05/03/17 11:05 98.6 F 88 16 141/81 99 - Laboratory Lab Results: Lab Results 05/03/17 05/03/17 05/03/17 Range/Units 11:25 11:25 11:25 WBC 7.6 (3.5-10.8) 10^3/ul RBC 3.27 L (4.0-5.4) 10^6/ul Hgb 8.3 L (14.0-18.0) g/dl Hct 26 L (42-52) % MCV 79 L (80-94) fL MCH 25 L (27-31) pg MCHC 32 (31-36) g/dl RDW 14 (10.5-15) % Plt Count 163 (150-450) 10^3/ul MPV 9 (7.4-10.4) um3 Neut % (Auto) 78.8 (38-83) % Lymph % (Auto) 13.3 L (25-47) % [place] % (Auto) 5.6 (0-7) % Eos % (Auto) 1.8 (0-6) % Baso % (Auto) 0.5 (0-2) % Absolute Neuts (auto) 6.0 (1.5-7.7) 10^3/ul Absolute Lymphs (auto) 1.0 (1.0-4.8) 10^3/ul Absolute Monos (auto) 0.4 (0-0.8) 10^3/ul Absolute Eos (auto) 0.1 (0-0.6) 10^3/ul Absolute Basos (auto) 0 (0-0.2) 10^3/ul Absolute Nucleated RBC 0 10^3/ul Nucleated RBC % 0 D-Dimer, Quantitative (Less Than 230) ng/mL Sodium 136 (133-145) mmol/L Potassium 4.3 (3.5-5.0) mmol/L Chloride 106 (101-111) mmol/L Carbon Dioxide 25 (22-32) mmol/L Anion Gap 5 (2-11) mmol/L BUN 29 H (6-24) mg/dL Creatinine 1.27 H (0.67-1.17) mg/dL Est GFR ( Amer) 75.4 (>60) Est GFR (Non-Af Amer) 58.7 (>60) BUN/Creatinine Ratio 22.8 H (8-20) Glucose 186 H (70-100) mg/dL Lactic Acid (0.5-2.0) mmol/L Calcium 9.4 (8.6-10.3) mg/dL Magnesium 1.7 L (1.9-2.7) mg/dL Total Bilirubin 0.40 (0.2-1.0) mg/dL AST 15 (13-39) U/L ALT 25 (7-52) U/L Alkaline Phosphatase 92 (34-104) U/L Troponin I 0.01 (<0.04) ng/mL B-Natriuretic Peptide 205 H ( - 100) pg/mL Total Protein 6.6 (6.4-8.9) g/dL Albumin 3.9 (3.2-5.2) g/dL Globulin 2.7 (2-4) g/dL Albumin/Globulin Ratio 1.4 (1-3) 05/03/17 05/03/17 05/03/17 Range/Units 11:25 11:25 14:45 WBC (3.5-10.8) 10^3/ul RBC (4.0-5.4) 10^6/ul Hgb (14.0-18.0) g/dl Hct (42-52) % MCV (80-94) fL MCH (27-31) pg MCHC (31-36) g/dl RDW (10.5-15) % Plt Count (150-450) 10^3/ul MPV (7.4-10.4) um3 Neut % (Auto) (38-83) % Lymph % (Auto) (25-47) % [place] % (Auto) (0-7) % Eos % (Auto) (0-6) % Baso % (Auto) (0-2) % Absolute Neuts (auto) (1.5-7.7) 10^3/ul Absolute Lymphs (auto) (1.0-4.8) 10^3/ul Absolute Monos (auto) (0-0.8) 10^3/ul Absolute Eos (auto) (0-0.6) 10^3/ul Absolute Basos (auto) (0-0.2) 10^3/ul Absolute Nucleated RBC 10^3/ul Nucleated RBC % D-Dimer, Quantitative < 200 (Less Than 230) ng/mL Sodium (133-145) mmol/L Potassium (3.5-5.0) mmol/L Chloride (101-111) mmol/L Carbon Dioxide (22-32) mmol/L Anion Gap (2-11) mmol/L BUN (6-24) mg/dL Creatinine (0.67-1.17) mg/dL Est GFR ( Amer) (>60) Est GFR (Non-Af Amer) (>60) BUN/Creatinine Ratio (8-20) Glucose (70-100) mg/dL Lactic Acid 0.9 (0.5-2.0) mmol/L Calcium (8.6-10.3) mg/dL Magnesium (1.9-2.7) mg/dL Total Bilirubin (0.2-1.0) mg/dL AST (13-39) U/L ALT (7-52) U/L Alkaline Phosphatase (34-104) U/L Troponin I 0.01 (<0.04) ng/mL B-Natriuretic Peptide ( - 100) pg/mL Total Protein (6.4-8.9) g/dL Albumin (3.2-5.2) g/dL Globulin (2-4) g/dL Albumin/Globulin Ratio (1-3) Result Diagrams: 05/03/17 21:25 05/04/17 05:45 Lab Statement: Any lab studies that have been ordered have been reviewed, and results considered in the medical decision making process. - Radiology CXR Xray Interpretation: No Acute Changes - No radiographic evidence for acute cardiopulmonary abnormality on this portable chest x-ray. Dr. Gonzalez has reviewed this report. Radiology Interpretation Completed By: Radiologist - EKG 11:12 Cardiac Rate: NL EKG Rhythm: Atrial Fibrillation - at 92 BPM. EKG Interpretation: A-Fib with controlled rate response. Nonspecific lateral changes. EKG Comparison: Other - Possible old septal inferior infarcts consistent with EKG on 05/02/17. Chest Pain Course/Dx - Course Course Of Treatment: Mr. Pratt presented with chest wall pain after his ICD went off in the middle of the night. We were unable to interrogate it but he did have a small run of V-tach here while on the monitor. He is being seen by the hospitalist service with a cardiology consult. - Diagnoses Provider Diagnoses: Chest pain, V tach - Provider Notifications Discussed Care Of Patient With: Troy Holm Instructed by Provider To: Other - Dr. Holm, cardiology, recommends admission. Dr. Stanton, hospitalist, accepts the patient for admission. - Critical Care Time Critical Care Time: 30-74 min Discharge - Discharge Plan Condition: Stable Disposition: ADMITTED TO [facility] documentation as recorded by the Cher dove Thomas accurately reflects the service I personally performed and the decisions made by , Jl Gonzalez MD.
--- NOTE | 2017-05-05 07:05 | DS ---
CC: Dr. Hill; Dr. German * DISCHARGE SUMMARY: DATE OF ADMISSION: 05/03/17 DATE OF DISCHARGE: 05/04/17 HOSPITAL COURSE: This 56-year-old man came in with chest pain and had discharge of his AICD. He has been in the emergency room for epistaxis and had nasal packing inserted. His hemoglobin had dropped from older values earlier this year, but seemed stable during this admission. He was no longer bleeding after the pack was inserted. He came back after being discharged from the hospital a couple of days ago with the pack because he had chest pain and his ICD fired. The patient was admitted to the telemetry unit. The [employer] rep came and interrogated his ICD. In fact, it had not fired and was functioning normally. He had 2 troponin levels, which were both within normal limits. He had no further chest pain. I spoke on the phone with Dr. Holt. He will see him in the office in a day or two, the pack will stay until then. He will stay off his rivaroxaban, aspirin, and Ticagrelor until further notice. He will be on amoxicillin clavulanate 875 mg b.i.d. 1 dose here and 10 doses to take at home. FINAL DIAGNOSES: 1. Epistaxis. 2. Chest pain. 3. Coronary artery disease. 4. Diabetes. 5. Chronic obstructive pulmonary disease. 6. Hypertension. DISCHARGE MEDICATIONS: 1. Amoxicillin clavulanate 875 mg b.i.d. for 10 doses. 2. Magnesium oxide 400 mg daily. 3. Nitroglycerin 0.4 mg sublingual every 5 minutes p.r.n. 4. Albuterol inhaler 1 puff b.i.d. p.r.n. 5. Lisinopril 2.5 mg daily. 6. Aspirin 81 mg daily. 7. Omeprazole 20 mg daily. 8. Gabapentin 300 mg b.i.d. 9. Triamterene/hydrochlorothiazide 37.5/25 one daily. 10. Budesonide/formoterol 160/4.5 two puffs b.i.d. 11. Cetirizine 10 mg daily. 12. Metoprolol succinate 25 mg daily. 13. Celecoxib 200 mg daily p.r.n. 14. Sitagliptin/metformin one tablet b.i.d. 15. Atorvastatin 80 mg daily. [id number]/[facility] #: [id number] [facility]
== END 2017-05-04 12:30 | disposition home or self-care (01) ==
LOC: ED 11:05 → MEDTELE 16:15
PROVIDERS: ADMIT Hospitalist; ATTEND Internal Medicine
DX: R07.9 Chest pain, unspecified (principal); Z95.810 Presence of automatic (implantable) cardiac defibrillator; I25.10 Atherosclerotic heart disease of native coronary artery without angina pectoris; J44.9 Chronic obstructive pulmonary disease, unspecified; E87.5 Hyperkalemia; I12.9 Hypertensive chronic kidney disease with stage 1 through stage 4 chronic kidney disease, or unspecified chronic kidney disease; E11.22 Type 2 diabetes mellitus with diabetic chronic kidney disease; I48.91 Unspecified atrial fibrillation; Z79.01 Long term (current) use of anticoagulants; N18.9 Chronic kidney disease, unspecified; I42.0 Dilated cardiomyopathy; Z79.899 Other long term (current) drug therapy; D62 Acute posthemorrhagic anemia; F17.210 Nicotine dependence, cigarettes, uncomplicated; R94.31 Abnormal electrocardiogram [ECG] [EKG]
CPT/HCPCS: 36415; 71045; 80048; 80053; 83605; 83735; 83880; 84484; 85014; 85018; 85025; 85379; 93005; 94640; 96365; 96366; 99291; A9270-GY; G0378; J3475

== ENCOUNTER 2017-05-21 13:49 | Observation (INO) | payer MEDICARE, MEDICAID ==
[2017-05-21] MEDS ORDERED: Ondansetron INJ* 2 MG/ML VIAL IV ONE (14:23)
[2017-05-21] MEDS ORDERED: Morphine INJ* 2 MG/ML 1 ML CARPUJECT IV ONE (14:23)
[2017-05-21] MEDS ORDERED: NS 0.9% 1000 ML* 1,000 ML IV ONE (14:23)
[2017-05-21 14:50] LABS: Hematocrit 23 % (42-52); Hemoglobin 7.5 g/dl (14.0-18.0); Mean Corpuscular HGB Conc 32 g/dl (31-36); Mean Corpuscular Hemoglobin 23 pg (27-31); Mean Corpuscular Volume 72 fL (80-94); Mean Platelet Volume 8.2 um3 (7.4-10.4); Platelet Count 204 10^3/ul (150-450); Red Blood Count 3.21 10^6/ul (4.0-5.4); Red Cell Distribution Width 15 % (10.5-15); White Blood Count 6.4 10^3/ul (3.5-10.8)
--- NOTE | 2017-05-21 15:09 | RAD ---
INDICATION: Diffuse abdominal pain COMPARISON: CT abdomen pelvis May 03, 2014 TECHNIQUE: Noncontrast axial source images were obtained from the hemidiaphragms to the symphysis pubis. This examination was ordered using a renal stone protocol which is performed without oral or intravenous contrast and therefore has inherent limitations when used to evaluate other intra-abdominal or intrapelvic pathology. Consider conventional contrast enhanced imaging if clinically indicated. Lung bases: There is cardiac pacemaker artifact. The heart is enlarged. There are bilateral pleural effusions. There is fluid in the major fissure on the left. Liver: The liver is enlarged with findings of hepatic steatosis. Noncontrast imaging shows no evidence of a hepatic mass or ductal dilatation. Gallbladder: There are no calcified gallstones. There is no evidence of wall thickening or pericholecystic fluid.. Spleen: There is splenomegaly. There is no focal mass. Pancreas: Noncontrast imaging shows no pancreatic mass or ductal dilitation. Adrenal glands: No masses are identified. Kidneys/Bladder: There is no evidence of nephrolithiasis. There is mild left-sided hydronephrosis. Left-sided ureteral stent has been removed. There is mild bilateral perinephric stranding which appears chronic. There are no bladder calculi. There is no renal mass on noncontrast evaluation. Adenopathy: There is no evidence of intraperitoneal or retroperitoneal adenopathy. Evaluation is limited without oral contrast. Fluid collections: There is trace ascites and mesenteric edema. Vessels: The aorta and iliac vessels are normal in caliber. There are no significant atherosclerotic changes. The IVC appears normal Pelvic organs: The prostate and seminal vesicles appear normal GI tract: Evaluation of the bowel is limited without oral contrast. The stomach, small bowel, and lower GI tract appear grossly normal. There are no obstructive findings. Soft tissues: No soft tissue abnormalities of the extraperitoneal abdomen or pelvis are identified. Osseous structures: There are no acute osseous findings. IMPRESSION: 1. Limited noncontrast imaging was performed 2. Cardiomegaly. 3. Bilateral pleural effusions. 4. Trace ascites and mesenteric edema. 5. Mild left-sided hydronephrosis. Interval removal of the left ureteral stent. No current evidence of urolithiasis. 6. Hepatosplenomegaly, unchanged
[2017-05-21 15:12] LABS: ABS Basophils 0 10^3/ul (0-0.2); ABS Eosinophils 0.2 10^3/ul (0-0.6); ABS Lymphocytes 1.2 10^3/ul (1.0-4.8); ABS Monocytes 0.4 10^3/ul (0-0.8); ABS Neutrophils 4.6 10^3/ul (1.5-7.7); ABS Nucleated RBC 0 10^3/ul; EGFR Non-African American 44.3 (>60); Eosinophil % 2.7 % (0-6); Lymphocyte % 18.3 % (25-47); Nucleated Red Blood Cells % 0.1
--- NOTE | 2017-05-21 15:12 | ED ---
Abdominal Pain/Male - HPI Summary HPI Summary: Patient is a 56-year-old male who presents to emergency department for exacerbation of chronic abdominal pain 2. Abdominal pain is diffuse and sharp in nature. It has been constant today. Associated symptoms of abdominal bloating. He also notes his urine has been dark. He denies recent illness, cough, fever, chills. He states that abdominal pain radiates into his chest at times. Extensive past medical hx including COPD, DM, HTM, CAD, NV, CKD. Symptoms are moderate in severity. No current modifying factors. - History of Current Complaint Hx Obtained From: Patient, Family/Brick Carrier Onset/Duration: Gradual Onset Timing: Constant Severity Initially: Moderate Severity Currently: Moderate Pain Intensity: 5 Character: Sharp Aggravating Factor(s): Nothing Alleviating Factor(s): Nothing, Position Associated Signs And Symptoms: Positive: Chest Pain, Urinary Symptoms. Negative : Diaphoresis, Fever, Cough, Dizzy, Back Pain, Constipation, Blood in Stool, Decreased Appetite, Nausea, Vomiting, Diarrhea - Risk Factors Testicular Torsion: Negative Cardiac Risk Factors: Hypertension, Prior NV, CAD <Bravo Russell - Last Filed: 05/21/17 17:50> <Kofi Andrade - Last Filed: 05/21/17 19:11> - History of Current Complaint Chief Complaint: EDAbdPain Stated Complaint: ABD PAIN Time Seen by Provider: 05/21/17 14:08 - Allergies/Home Medications Allergies/Adverse Reactions: Allergies Allergy/AdvReac Type Severity Reaction Status Date / Time shellfish derived Allergy Unknown Verified 05/21/17 14:02 Reaction Details Contrast dye Allergy Unknown Uncoded 05/21/17 14:02 Reaction Details Home Medications: Home Medications Diltiazem TAB* [Cardizem 30 MG Tab*] 30 mg PO BID 05/21/17 [History Confirmed ] PMH/Surg Hx/FS Hx/Imm Hx Previously Healthy: No - Extensive PMHx Endocrine/Hematology History: Reports: Hx Diabetes Denies: Hx Anticoagulant Therapy, Hx Blood Disorders, Hx Blood Transfusions, Hx Bone Marrow Disease, Hx Systemic Lupus Erythematosus, Hx Sickle Cell Disease , Hx Thyroid Disease, Hx Anemia, Hx Unexplained Bleeding, Other Endocrine/ Hematological Disorders Cardiovascular History: Reports: Hx Angina, Hx Angioplasty, Hx Atrial Fibrillation, Hx Coronary Artery Disease, Hx Hypercholesterolemia, Hx Hypertension, Hx Pacemaker/ICD - 2008 Denies: Hx Aneurysm, Hx Auto Implanted Cardiovert Defib, Hx Cardiac Arrest, Hx Cardiomegaly, Hx Congenital Heart Disease, Hx Congestive Heart Failure, Hx Deep Vein Thrombosis, Hx Embolism, Hx Hypotension, Hx Myocardial Infarction, Hx Peripheral Vascular Disease, Hx Rheumatic Fever, Hx Syncope, Hx Valvular Heart Disease, Other Cardiovascular Problems/Disorders Respiratory History: Reports: Hx 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 Denies: Hx Chronic Bronchitis, Hx Chronic Obstructive Pulmonary Disease (COPD ), Hx Cystic Fibrosis, Hx Lung Cancer, Hx Pleural Effusion, Hx Pneumonia, Hx Pulmonary Edema, Hx Pulmonary Embolism, Hx Seasonal Allergies, Hx Sleep Apnea, Other Respiratory Problems/Disorders GI History: Reports: Hx Gastroesophageal Reflux Disease Denies: Hx Cirrhosis, Hx Crohn's Disease, Hx Diverticulosis, Hx Gall Bladder Disease, Hx Gastrointestinal Bleed, Hx Hiatal Hernia, Hx Irritable Bowel, Hx Jaundice, Hx Obstructive Bowel, Hx Ileostomy, Hx Pyloric Stenosis, Hx Ulcer, Other GI Disorders History: Reports: Hx Kidney Stones - LEFT Denies: Hx Acute Renal Failure, Hx Benign Prostatic Hyperplasia, Hx Chronic Renal Failure, Hx Dialysis, Hx Kidney Infection, Hx Renal Disease, Other Problems/Disorders Musculoskeletal History: Reports: Hx Arthritis - BILATERAL HANDS AND LEGS Denies: Hx Back Problems, Hx Bursitis, Hx Congenital Bone Abnormalities, Hx Fibromyalgia, Hx Gout, Hx Orthopedic Injury, Hx Osteoporosis, Hx Scoliosis, Hx Tendonitis, Other Musculoskeletal History Sensory History: Reports: Hx Contacts or Glasses Denies: Hx Cataracts, Hx Glaucoma, Hx Hearing Aid Opthamlomology History: Reports: Hx Contacts or Glasses Denies: Hx Cataracts, Hx Glaucoma Neurological History: Denies: Hx Dementia, Hx Headaches, Hx Migraine, Hx Seizures, Hx Transient Ischemic Attacks (TIA), Other Neuro Impairments/Disorders Psychiatric History: Reports: Hx Depression Denies: Hx Anxiety, Hx Attention Deficit Hyperactivity Disorder, Hx Eating Disorder, Hx Panic Disorder, Hx Post Traumatic Stress Disorder, Hx Inpatient Treatment, Hx Community Mental Health Tx, Hx Schizophrenia, Hx Bipolar Disorder , Hx Suicide Attempt, Hx of Violent Episodes Against Others, Hx Substance Abuse , Other Psychiatric Issues/Disorders - Surgical History Surgery Procedure, Year, and Place: [place] [facility] [place] [facility]DECT[facility]Y [facility]. MULTIPLE CYSTO, L STENT, L ESWL PROCED[place] [facility] [place]ARDIAC C[place] X3 2009, 2016 Hx Anesthesia Reactions: No - Immunization History Date of Tetanus Vaccine: Unknown Immunizations Up to Date: Unable to Obtain/Confirm Infectious Disease History: No Infectious Disease History: Denies: Hx Clostridium Difficile, Hx Hepatitis, Hx Human Immunodeficiency Virus (HIV), Hx Tuberculosis, Traveled Outside the [place] in Last 30 Days - Family History Known Family History: Positive: Cardiac Disease, Hypertension - Social History Occupation: Unemployed Lives: With Family Alcohol Use: None Alcohol Amount: 2-3 PER DAY Substance Use Type: Reports: None Smoking Status (MU): Former Smoker Type: Cigarettes Amount Used/How Often: 2 PACKS A DAY Length of Time of Smoking/Using Tobacco: MANY YRS Have You Smoked in the Last Year: No <Bravo Russell - Last Filed: 05/21/17 17:50> Review of Systems Constitutional: Negative Negative: Fever, Chills Eyes: Negative ENT: Negative Positive: Chest Pain Respiratory: Negative Positive: Shortness Of Breath Positive: Abdominal Pain. Negative: Vomiting, Diarrhea, Nausea Positive: other - Dark urine Musculoskeletal: Negative Skin: Negative Neurological: Negative Psychological: Normal All Other Systems Reviewed And Are Negative: Yes <Bravo Russell - Last Filed: 05/21/17 17:50> Physical Exam - Summary Physical Exam Summary: Appearance: Pt. is awake and alert. Patient sitting in bed in no acute distress. Appears older than stated age. Family present. Skin: Warm, dry. Head/Face: No trauma. Normocephalic. Eyes: PERRLA. Neck: Full ROM. ENT: Nose without drainage. Oropharynx patent. Heart: Heart is a regular rate and rhythm. Lungs: Crackles in bilateral bases Abdomen: Abdomen is distended and diffusely tender. MS/Extremity: Moving all 4 extremities. Neuro: Awake, alert. Cranial nerves II through XII grossly intact. Pscyh: Normal affect. Triage Information Reviewed: Yes Vital Signs On Initial Exam: Initial Vitals Temp Pulse Resp BP Pulse Ox 98.1 F 88 17 137/67 96 05/21/17 13:58 05/21/17 13:58 05/21/17 13:58 05/21/17 13:58 05/21/17 13:58 Vital Signs Reviewed: Yes Appearance: Positive: Ill-Appearing Skin: Positive: Warm, Dry Head/Face: Positive: Normal Head/Face Inspection Eyes: Positive: Normal Respiratory/Lung Sounds: Positive: Decreased Breath Sounds, Other - Crackles in bases Cardiovascular: Positive: Normal, RRR Abdomen Description: Positive: Soft, Distended, Guarding, Other: - Diffusely tender. Negative: Peritoneal Signs Bowel Sounds: Positive: Present Musculoskeletal: Positive: Normal Neurological: Positive: Normal, CN Intact II-III Psychiatric: Positive: Normal AVPU Assessment: Alert <Bravo Russell - Last Filed: 05/21/17 17:50> Vital Signs On Initial Exam: Initial Vitals Temp Pulse Resp BP Pulse Ox 98.1 F 88 17 137/67 96 05/21/17 13:58 05/21/17 13:58 05/21/17 13:58 05/21/17 13:58 05/21/17 13:58 <Kofi Andrade - Last Filed: 05/21/17 19:11> Diagnostics - Vital Signs Vital Signs Temp Pulse Resp BP Pulse Ox 05/21/17 15:01 18 05/21/17 14:20 88 99 05/21/17 14:19 136/80 05/21/17 13:58 98.1 F 88 17 137/67 96 - Laboratory Lab Results: Lab Results 05/21/17 05/21/17 Range/Units 14:31 14:31 WBC 6.4 (3.5-10.8) 10^3/ul RBC 3.21 L (4.0-5.4) 10^6/ul Hgb 7.5 L (14.0-18.0) g/dl Hct 23 L (42-52) % MCV 72 L (80-94) fL MCH 23 L (27-31) pg MCHC 32 (31-36) g/dl RDW 15 (10.5-15) % Plt Count 204 (150-450) 10^3/ul MPV 8.2 (7.4-10.4) um3 Neut % (Auto) Pending Lymph % (Auto) Pending Vigo % (Auto) Pending Eos % (Auto) Pending Baso % (Auto) Pending Absolute Neuts (auto) Pending Absolute Lymphs (auto) Pending Absolute Monos (auto) Pending Absolute Eos (auto) Pending Absolute Basos (auto) Pending Absolute Nucleated RBC Pending Nucleated RBC % Pending Sodium Pending Potassium Pending Chloride Pending Carbon Dioxide Pending Anion Gap Pending BUN Pending Creatinine Pending Est GFR ( Amer) Pending Est GFR (Non-Af Amer) Pending BUN/Creatinine Ratio Pending Glucose Pending Calcium Pending Total Bilirubin Pending AST Pending ALT Pending Alkaline Phosphatase Pending Troponin I 0.02 (<0.04) ng/mL C-Reactive Protein Pending Total Protein Pending Albumin Pending Globulin Pending Albumin/Globulin Ratio Pending Lipase Pending Result Diagrams: 05/21/17 14:31 05/21/17 14:31 Lab Statement: Any lab studies that have been ordered have been reviewed, and results considered in the medical decision making process. <Bravo Russell - Last Filed: 05/21/17 17:50> - Vital Signs Vital Signs Temp Pulse Resp BP Pulse Ox 05/21/17 18:00 81 130/85 95 05/21/17 17:30 82 142/86 95 05/21/17 16:58 80 100 05/21/17 16:30 79 135/84 100 05/21/17 16:00 77 131/81 90 05/21/17 15:30 83 124/70 94 05/21/17 15:05 81 141/86 97 05/21/17 15:01 18 05/21/17 15:00 81 97 05/21/17 14:30 88 133/78 98 05/21/17 14:20 88 99 05/21/17 14:19 136/80 05/21/17 13:58 98.1 F 88 17 137/67 96 - Laboratory Lab Results: Lab Results 05/21/17 05/21/17 05/21/17 Range/Units 14:31 14:31 14:31 WBC 6.4 (3.5-10.8) 10^3/ul RBC 3.21 L (4.0-5.4) 10^6/ul Hgb 7.5 L (14.0-18.0) g/dl Hct 23 L (42-52) % MCV 72 L (80-94) fL MCH 23 L (27-31) pg MCHC 32 (31-36) g/dl RDW 15 (10.5-15) % Plt Count 204 (150-450) 10^3/ul MPV 8.2 (7.4-10.4) um3 Neut % (Auto) 72.0 (38-83) % Lymph % (Auto) 18.3 L (25-47) % Vigo % (Auto) 6.3 (0-7) % Eos % (Auto) 2.7 (0-6) % Baso % (Auto) 0.7 (0-2) % Absolute Neuts (auto) 4.6 (1.5-7.7) 10^3/ul Absolute Lymphs (auto) 1.2 (1.0-4.8) 10^3/ul Absolute Monos (auto) 0.4 (0-0.8) 10^3/ul Absolute Eos (auto) 0.2 (0-0.6) 10^3/ul Absolute Basos (auto) 0 (0-0.2) 10^3/ul Absolute Nucleated RBC 0 10^3/ul Nucleated RBC % 0.1 Microcytosis 1+ Sodium 133 L (139-145) mmol/L Potassium 4.2 (3.5-5.0) mmol/L Chloride 99 L (101-111) mmol/L Carbon Dioxide 26 (22-32) mmol/L Anion Gap 8 (2-11) mmol/L BUN 28 H (6-24) mg/dL Creatinine 1.62 H (0.67-1.17) mg/dL Est GFR ( Amer) 57.0 (>60) Est GFR (Non-Af Amer) 44.3 (>60) BUN/Creatinine Ratio 17.3 (8-20) Glucose 367 H (70-100) mg/dL Lactic Acid 2.4 H* (0.5-2.0) mmol/L Calcium 8.7 (8.6-10.3) mg/dL Magnesium 1.8 L (1.9-2.7) mg/dL Total Bilirubin 0.60 (0.2-1.0) mg/dL AST 9 L (13-39) U/L ALT 17 (7-52) U/L Alkaline Phosphatase 106 H (34-104) U/L Troponin I 0.02 (<0.04) ng/mL C-Reactive Protein 6.48 H (< 5.00) mg/L B-Natriuretic Peptide ( - 100) pg/mL Total Protein 6.6 (6.4-8.9) g/dL Albumin 3.7 (3.2-5.2) g/dL Globulin 2.9 (2-4) g/dL Albumin/Globulin Ratio 1.3 (1-3) Lipase 83 H (11.0-82.0) U/L Urine Color Urine Appearance Urine pH (5-9) Ur Specific Edwards (1.010-1.030) Urine Protein (Negative) Urine Ketones (Negative) Urine Blood (Negative) Urine Nitrate (Negative) Urine Bilirubin (Negative) Urine Urobilinogen (Negative) Ur Leukocyte Esterase (Negative) Urine WBC (Auto) (Absent) Urine RBC (Auto) (Absent) Ur Squamous Epith Cells (Absent) Urine Bacteria (Absent) Urine Yeast (Absent) Urine Sperm (Absent) Urine Glucose (Negative) 05/21/17 05/21/17 Range/Units 14:31 17:50 WBC (3.5-10.8) 10^3/ul RBC (4.0-5.4) 10^6/ul Hgb (14.0-18.0) g/dl Hct (42-52) % MCV (80-94) fL MCH (27-31) pg MCHC (31-36) g/dl RDW (10.5-15) % Plt Count (150-450) 10^3/ul MPV (7.4-10.4) um3 Neut % (Auto) (38-83) % Lymph % (Auto) (25-47) % Vigo % (Auto) (0-7) % Eos % (Auto) (0-6) % Baso % (Auto) (0-2) % Absolute Neuts (auto) (1.5-7.7) 10^3/ul Absolute Lymphs (auto) (1.0-4.8) 10^3/ul Absolute Monos (auto) (0-0.8) 10^3/ul Absolute Eos (auto) (0-0.6) 10^3/ul Absolute Basos (auto) (0-0.2) 10^3/ul Absolute Nucleated RBC 10^3/ul Nucleated RBC % Microcytosis Sodium (139-145) mmol/L Potassium (3.5-5.0) mmol/L Chloride (101-111) mmol/L Carbon Dioxide (22-32) mmol/L Anion Gap (2-11) mmol/L BUN (6-24) mg/dL Creatinine (0.67-1.17) mg/dL Est GFR ( Amer) (>60) Est GFR (Non-Af Amer) (>60) BUN/Creatinine Ratio (8-20) Glucose (70-100) mg/dL Lactic Acid (0.5-2.0) mmol/L Calcium (8.6-10.3) mg/dL Magnesium (1.9-2.7) mg/dL Total Bilirubin (0.2-1.0) mg/dL AST (13-39) U/L ALT (7-52) U/L Alkaline Phosphatase (34-104) U/L Troponin I (<0.04) ng/mL C-Reactive Protein (< 5.00) mg/L B-Natriuretic Peptide 366 H ( - 100) pg/mL Total Protein (6.4-8.9) g/dL Albumin (3.2-5.2) g/dL Globulin (2-4) g/dL Albumin/Globulin Ratio (1-3) Lipase (11.0-82.0) U/L Urine Color Yellow Urine Appearance Clear Urine pH 5.0 (5-9) Ur Specific Edwards 1.010 (1.010-1.030) Urine Protein 1+(30 mg/dl) A (Negative) Urine Ketones Negative (Negative) Urine Blood 1+ A (Negative) Urine Nitrate Negative (Negative) Urine Bilirubin Negative (Negative) Urine Urobilinogen Negative (Negative) Ur Leukocyte Esterase 2+ A (Negative) Urine WBC (Auto) 3+(>20/hpf) A (Absent) Urine RBC (Auto) Trace(0-2/hpf) (Absent) Ur Squamous Epith Cells Present A (Absent) Urine Bacteria Absent (Absent) Urine Yeast Present A (Absent) Urine Sperm Present A (Absent) Urine Glucose 3+(>=500 mg/dl) A (Negative) Result Diagrams: 05/21/17 14:31 05/21/17 14:31 Lab Statement: Any lab studies that have been ordered have been reviewed, and results considered in the medical decision making process. <Kofi Andrade - Last Filed: 05/21/17 19:11> Abdominal Pain Fem Course/Dx - Course Course Of Treatment: Pt. presenting for exacerbation of chronic abd. pain. He also notes that he has been more bloated. He also admits to intermittent CP and SOB. He is afebrile with stable vital signs. Labs, ECG and abd. ct ordered. Pt. was given 2mg IV morphine and zofran for pain. Pt. started on IV fluids. CBC shows worsening anemia with an H and H of 7.5 and 23 down from 8.3 and 26. Rectal exam is negative for gross blood and stool occult blood is negative. CMP shows acute on chronic renal insufficiency. ECG done at 1423 shows a fib with a v rate of 69-95bpm, diffuse ST T wave changes, appears similar to prior tracing. Did initially speak with GI, Dr. Fowler, for f.u for scopes. Lactic acid minimaly elevated at 2.4. Negative troponin. Abd. CT scan shows IMPRESSION: reading per radiology. 1. Limited noncontrast imaging was performed. 2. Cardiomegaly. 3. Bilateral pleural effusions. 4. Trace ascites and mesenteric edema. 5. Mild left-sided hydronephrosis. Interval removal of the left ureteral stent. No current evidence of urolithiasis. 6. Hepatosplenomegaly, unchanged. CXR was then obtained and shows cardiomegaly with mild pulmonary interstitial edema. Pt.'s O2 saturation dropped to 87% on RA. He does not wear O2 a home. NC placed by nurse. Case discussed with Dr. Andrade who examined pt. Concerned for CHF. BNP added. Will admit pt. for hypoxia, CHF, and anemia. 40mg IV lasix ordered per Dr. Andrade. I spoke with hospitalist, Dr. Ta, and she has accepted pt. to her service. Pt. has remained stable in the ER. <Bravo Russell - Last Filed: 05/21/17 17:50> - Course Course Of Treatment: I supervised the Financial Institution Treasurer AND I performed a hx and PE on this pt. Hx: Abd distention and some pain. On Xarelto for Afib. PE: No abd tenderness. Crackles in james bases 1/3 up. No peripheral edema. Plan: Evidence for CHF with hypoxia here. Diurese. Admit for further. <Kofi Andrade - Last Filed: 05/21/17 19:11> - Diagnoses Provider Diagnoses: CHF (congestive heart failure), Hypoxia, Anemia Discharge - Sign-Out/Discharge Documenting (check all that apply): Discharge - Billing Disposition and Condition Condition: STABLE Disposition: [facility] <Bravo Russell - Last Filed: 05/21/17 17:50> - Billing Disposition and Condition Condition: STABLE Disposition: [facility] <Kofi Andrade - Last Filed: 05/21/17 19:11> - Discharge Plan Condition: Stable Disposition: ADMITTED TO [facility]
--- NOTE | 2017-05-21 16:33 | RAD ---
HISTORY: Shortness of breath COMPARISONS: May 03, 2017 VIEWS: 1: frontal portable view of the chest at 40 p.m. FINDINGS: LINES AND TUBES: A left-sided ICD pacemaker is noted. CARDIOMEDIASTINAL SILHOUETTE: The cardiac silhouette is enlarged. The cardiomediastinal silhouette is otherwise normal for portable technique. PLEURA: The costophrenic angles are sharp. No pleural abnormalities are noted. LUNG PARENCHYMA: There is a mild diffuse reticular pattern with indistinct pulmonary vessels. ABDOMEN: The upper abdomen is clear. There is no subphrenic gas. BONES AND SOFT TISSUES: No bone or soft tissue abnormalities are noted. IMPRESSION: CARDIOMEGALY WITH MILD PULMONARY INTERSTITIAL EDEMA.
[2017-05-21] MEDS ORDERED: Furosemide IV* 10 MG/ML VIAL (40 MG) IV ONE (17:27)
[2017-05-21] MEDS ORDERED: celeCOXIB CAP* 200 MG PO PRN (18:02)
[2017-05-21 18:04] LABS: Urine Appearance Clear; Urine Blood 1+ (Negative); Urine Color Yellow; Urine Ketones Negative (Negative); Urine Protein 1+(30 mg/dL) (Negative); Urine Urobilinogen Negative (Negative)
[2017-05-21] MEDS ORDERED: Magnesium Sulfate 2 GM IV* 2 GM/50 ML BAG IVPB ONE (18:57)
[2017-05-21] MEDS ORDERED: Albuterol 2.5 MG/3 ML NEB.SOL* (0.083%) INH PRN (19:34)
[2017-05-21] MEDS ORDERED: Dextrose 50% Syringe 50 ML* 25 GM/50 ML SYRINGE IV PUSH PRN (19:44)
[2017-05-21] MEDS ORDERED: NS 0.9% 1000 ML* 1,000 ML IV SCH (19:45)
[2017-05-21] MEDS: Gabapentin CAP(*) 300 MG PO SCH (19:54)
[2017-05-21] MEDS: Omeprazole CAP* 20 MG PO SCH (19:55)
[2017-05-21] MEDS: Diltiazem TAB* 30 MG PO SCH (19:55)
[2017-05-21] MEDS: Insulin LISPRO* 1 UNITS UNIT SUBCUT SCH (20:55)
--- NOTE | 2017-05-21 21:53 | HP ---
CC: Anita Knight NP; Dr. Kelley * HISTORY AND PHYSICAL: DATE OF ADMISSION: 05/21/17 ATTENDING PHYSICIAN: Dr. Corado * (report dictated by Xander Larios NP). PRIMARY CARE PROVIDER: Anita Knight NP LICENSED PHYSICAL THERAPIST ASSISTANT: Dr. Kelley. CHIEF COMPLAINT: Abdominal pain. HISTORY OF PRESENT ILLNESS: Mr. Pratt is a 56-year-old male with a complex past medical history of coronary artery disease with stents in 2016, nonischemic cardiomyopathy, chronic kidney disease, history of tobacco abuse, COPD, type 2 diabetes, hypertension, and history of pacemaker and ICD, who presents to the emergency department today with report of diffuse abdominal pain and 3 days of diarrhea. He reports at his baseline he has irritable bowel syndrome and fluctuates between constipation and diarrhea; however, over the past 3 days, he reports his diarrhea has been much more severe. He reports 5 to 6 bowel movements a day, reporting watery stools. He denies any fevers or chills. No nausea or vomiting. He was seen in the emergency department by Dr. Andrade who evaluated the patient and ordered a CT of abdomen and pelvis without contrast, which showed no acute pathology. The patient was going to be discharged home, when the nurse laid him flat and his pulse oximetry dropped to 87%. Per discussing this with the nurse, he was placed on 2 L of oxygen, which resolved his hypoxia. The patient did have noted small bilateral pleural effusions on the CAT scan and it was thought that he was possibly in congestive heart failure and he was given 40 mg of IV Lasix. Hospital Medicine was asked to evaluate the patient for admission. The patient was seen and evaluated in the emergency department where he was sitting up in bed, alert and oriented x3, in no acute distress, currently oxygenating well on room air with O2 sat of 97%. He does report that he had one large void since being given the IV Lasix. Upon reviewing his labs, it is noted his hemoglobin and hematocrit is 7.5 and 23. In early April, he did have a significant episode of epistaxis on Xarelto where his nose was ballooned and his Xarelto was discontinued. It appeared last month he went as low as 8 and has not been rechecked in the past 3 weeks. In the emergency department today, he had a stool for occult blood, which was negative. The patient does report he has had increased shortness of breath with exertion at home since his nosebleed. Currently, the patient reports his abdomen feels better and has not had any diarrhea since being in the emergency department. He reports he has maintained a good appetite over the past several days. The patient currently denies any shortness of breath or chest pain. PAST MEDICAL HISTORY: 1. Coronary artery disease with a history of unstable angina on cardiac catheterization on 12/27/15 with drug-eluting stents to the distal and mid LAD and mid circumflex. 2. History of nonischemic cardiomyopathy. 3. Chronic kidney disease. 4. History of tachycardia. 5. Hyperlipidemia. 6. Hypertension. 7. Siv-cflfbzq-obzqcwrvb type 2 diabetes. 8. COPD. 9. History of tobacco abuse. 10. Ventricular pacemaker and ICD. 11. Recurrent ureteral calculi. 12. History of atrial fibrillation. 13. History of epistaxis with a recent bleed in early April 2017. CURRENT MEDICATIONS: 1. Lipitor 80 mg p.o. daily. 2. Cardizem 30 mg p.o. b.i.d. 3. Gabapentin 300 mg p.o. b.i.d. 4. Celebrex 200 mg p.o. daily p.r.n. 5. Dyazide 37.5/25 mg 1 cap p.o. daily. 6. Omeprazole 20 mg p.o. b.i.d. 7. Metoprolol XL 25 mg p.o. daily. 8. Magnesium oxide 400 mg p.o. daily. 9. Lisinopril 2.5 mg p.o. q.a.m. 10. Zyrtec 10 mg p.o. daily. 11. Symbicort 160/4.5 two puffs INH b.i.d. 12. Albuterol HFA inhaler 1 puff INH b.i.d. p.r.n. 13. Janumet mg 1 tab p.o. b.i.d. ALLERGIES: SHELLFISH, CONTRAST DYE. FAMILY HISTORY: His father has a history of diabetes and hypertension. The mother has a history of hypertension and coronary artery disease. SOCIAL HISTORY: The patient is a former smoker quitting approximately 13 years ago, smoking approximately a pack a day. Denies any alcohol or recreational drug use. He lives with his girlfriend, India Crowell, who is his healthcare proxy and also lists his father, Angel Pratt, as a healthcare proxy. REVIEW OF SYSTEMS: A 14-point review of systems was performed. All the pertinent positives and negatives are mentioned in the history of present illness. Otherwise, negative. PHYSICAL EXAMINATION GENERAL APPEARANCE: Chronically ill appearing 56-year-old male, sitting up in the emergency department stretcher, alert and oriented x3, in no acute distress. VITAL SIGNS: Temperature 98.1, heart rate 97, respirations 18, pulse oximetry 97 % on room air, blood pressure 139/91. HEENT: Head is normocephalic, atraumatic. Pupils are equal and reactive to light. Oropharynx is clear. Dry mucous membranes. NECK: Supple. No JVD noted. RESPIRATORY: No accessory muscle use. Bilateral lobes are diminished with fine crackles. Otherwise, good aeration throughout. CARDIAC: S1, S2. No murmurs, rubs, or gallops appreciated. No lower extremity edema noted. 2+ DP pulses bilaterally. ABDOMEN: Obese, distended, soft. Normal bowel sounds throughout. No guarding. MUSCULOSKELETAL: Moves all extremities. Strength is 5/5 throughout. No clubbing or cyanosis noted. NEURO: Cranial nerves II through XII are grossly intact. No focal deficits noted. SKIN: Warm, pink, dry. No rashes, lesions, or open wounds noted. LABORATORY DATA AND DIAGNOSTIC STUDIES: WBC is 6.4, RBC 3.21, HGB 7.5, HCT 23 , MCV 72, MCH 23, MCHC 32, RDW 15, platelet count 204,000. Sodium 133, potassium 4.2, chloride 99, carbon dioxide 26, anion gap 8, BUN 28, creatinine 1.62, glucose 367. Lactic acid 2.4. Calcium 8.7. Magnesium 1.8. Total bilirubin 0.60, AST 9, ALT 17, alkaline phosphatase 106. Troponin 0.02. CRP 6.48. BNP 366. Lipase 83. CT abdomen and pelvis without contrast, impression: 1. Limited performed. 2. Cardiomegaly. 3. Bilateral pleural effusions. 4. Trace ascites and mesenteric edema. 5. Mild left-sided hydronephrosis. left ureteral stent. No recurrent evidence of urolithiasis. 6. Hepatosplenomegaly unchanged. Chest x-ray, impression: Cardiomegaly with mild pulmonary interstitial edema. EKG: Atrial fibrillation with a rate of 81, noted ST changes. In comparison to EKG of 05/04/07, no acute changes noted. ASSESSMENT AND PLAN: Mr. Pratt is a 56-year-old male with a complex past medical history, who presented to the emergency department today with complaint of abdominal pain and 3 days of diarrhea, who was found to be anemic, small bilateral pleural effusions, and had episode of hypoxia in the emergency department. 1. Anemia, symptomatic. The patient will be admitted for symptomatic anemia with a report of increased shortness of breath with exertion at home. He had a negative stool for occult blood. I suspect this is secondary to his episode of significant nosebleed on Xarelto last month. We will obtain iron studies, give him 1 unit, and recheck his H and H afterwards. 2. Bilateral pleural effusions. Upon reviewing the CAT scan, it is noted he has small bilateral effusions, it is unclear if this is actually congestive heart failure. He has a mildly elevated BNP in the emergency room, I did give him 40 mg of Lasix; however, on his labs and assessment, he does appear to be more on the dry side. The plan at this point will be to give him some gentle IV fluids overnight. 3. Abdominal pain and diarrhea. At this point, the abdominal pain has improved and he has had no diarrhea since presenting to the emergency department. We will just wait and watch at this time. If he continues to have diarrhea, stool studies and a C. diff could be sent; however, it has been greater than 6 hours since he has had a bowel movement. CT of the abdomen shows no acute pathology. I do think the patient should be seen by GI as an outpatient for an upper endoscopy and a colonoscopy screening. This was discussed with the patient. Urinalysis was sent and reviewed, appears to be a dirty catch. We will await culture. 4. Chronic kidney disease. The patient appears to be around his baseline. Recheck creatinine in the a.m. 5. Elevated lactic acid, unclear etiology. This is mildly elevated. We will recheck this evening. 6. Electrolyte abnormalities. The patient has a magnesium of 1.8. We will give replacement. 7. Type 2 diabetes. Fingerstick blood glucose a.c. and h.s., lispro sliding scale. Plan to hold the patient's oral diabetic medication. 8. Atrial fibrillation. He appears to be in atrial fibrillation with a controlled rate. Continue metoprolol succinate 25 mg p.o. daily. Continue Cardizem. 9. History of nonischemic cardiomyopathy. Continue metoprolol, lisinopril. 10. History of coronary artery disease. Appears to be asymptomatic at this time. I do not see the patient is on aspirin and wonder if this was never restarted after his Xarelto was discontinued. We will add on a daily 81 mg aspirin. He is to follow up with Dr. Kelley next week for a followup. Continue Lipitor. 11. DVT prophylaxis. Heparin subcutaneously. 12. Code status. Full code. 13. Disposition. OBV to Medical. TIME SPENT: Approximately 60 minutes was spent on this admission. XANDER LARIOS, COMPOSITE BOND WORKER [id number]/CPS #: [id number] ALBINO
[2017-05-21] MEDS: Heparin VIAL(*) 5000 UNITS/ML VIAL (FIVE THOUSAND) SUBCUT SCH (22:35)
[2017-05-22] MEDS: Heparin VIAL(*) 5000 UNITS/ML VIAL (FIVE THOUSAND) SUBCUT SCH (05:52)
[2017-05-22] MEDS ORDERED: Ondansetron INJ* 2 MG/ML VIAL IV PRN (06:13)
[2017-05-22 06:24] LABS: ABS Basophils 0.1 10^3/ul (0-0.2); ABS Eosinophils 0.2 10^3/ul (0-0.6); ABS Lymphocytes 1.7 10^3/ul (1.0-4.8); ABS Monocytes 0.6 10^3/ul (0-0.8); ABS Neutrophils 6.1 10^3/ul (1.5-7.7); ABS Nucleated RBC 0 10^3/ul; Eosinophil % 2.7 % (0-6); Hematocrit 27 % (42-52); Hemoglobin 8.6 g/dl (14.0-18.0); Mean Corpuscular HGB Conc 32 g/dl (31-36); Mean Corpuscular Hemoglobin 24 pg (27-31); Mean Corpuscular Volume 75 fL (80-94); Mean Platelet Volume 8.4 um3 (7.4-10.4); Nucleated Red Blood Cells % 0; Platelet Count 216 10^3/ul (150-450); Red Blood Count 3.55 10^6/ul (4.0-5.4); Red Cell Distribution Width 16 % (10.5-15); White Blood Count 8.7 10^3/ul (3.5-10.8)
[2017-05-22 06:42] LABS: EGFR Non-African American 42.8 (>60)
[2017-05-22] MEDS: Insulin LISPRO* 1 UNITS UNIT SUBCUT SCH ×2 (08:45→13:04)
[2017-05-22] MEDS ORDERED: Metoprolol Succinate XL TAB* 25 MG PO SCH (09:00)
[2017-05-22] MEDS ORDERED: Aspirin EC TAB* 81 MG TAB.EC PO SCH (09:00)
[2017-05-22] MEDS ORDERED: Lisinopril TAB* 5 MG PO SCH (09:00)
[2017-05-22] MEDS ORDERED: Atorvastatin* 80 MG TAB PO SCH (09:00)
[2017-05-22] MEDS ORDERED: Magnesium Oxide TAB* 400 MG PO SCH (09:00)
[2017-05-22] MEDS: Omeprazole CAP* 20 MG PO SCH (09:24)
[2017-05-22] MEDS: Gabapentin CAP(*) 300 MG PO SCH (09:25)
[2017-05-22] MEDS: Diltiazem TAB* 30 MG PO SCH (09:25)
[2017-05-22 12:18] VITALS: BP 132/80
--- NOTE | 2017-05-23 06:39 | DS ---
CC: Anita Knight NP; Dr. German; France Sheikh NP * DISCHARGE SUMMARY: DATE OF ADMISSION: 05/21/17 DATE OF DISCHARGE: 05/22/17 PRIMARY CARE PROVIDER: Anita Knight NP DISCHARGE DIAGNOSES: 1. Symptomatic anemia secondary to epistaxis, status post 1 PRBC. 2. Mild diastolic congestive heart failure exacerbation. SECONDARY DIAGNOSES: 1. Coronary artery disease. 2. Chronic kidney disease. 3. Hyperlipidemia. 4. Hypertension. 5. Type 2 diabetes. 6. Chronic obstructive pulmonary disease. 7. Tobacco abuse. 8. Status post pacemaker/ICD. 9. Nephrolithiasis. 10. Atrial fibrillation. 11. History of epistaxis in early April 2017. 12. Irritable bowel syndrome. MEDICATION LIST: 1. Celebrex 200 mg p.o. daily as needed for pain. 2. Dyazide 37.5/25 mg 1 capsule p.o. daily. 3. Janumet mg p.o. b.i.d. 4. Omeprazole 20 mg p.o. b.i.d. 5. Metoprolol succinate 25 mg p.o. daily. 6. Lisinopril 2.5 mg p.o. q.a.m. 7. Gabapentin 300 mg p.o. b.i.d. 8. Cardizem 30 mg p.o. b.i.d. 9. Cetirizine 10 mg p.o. daily. 10. Symbicort 160/4.5 two puffs inhaled b.i.d. 11. Atorvastatin 80 mg p.o. daily. 12. Albuterol HFA 1 puff inhaled b.i.d. as needed for wheezing. 13. Nitroglycerin 0.4 mg sublingual q.4 minutes p.r.n. chest pain, maximum 3 doses. 14. Magnesium oxide 400 mg p.o. daily. 15. Xarelto 20 mg p.o. daily was resumed. New medication: 1. Ferrous sulfate 325 mg p.o. daily. HOSPITAL COURSE: Mr. Pratt is a 56-year-old male with past medical history as stated above that presents to the emergency room on 05/21/17 with complaints of diffuse abdominal pain and 3 days of diarrhea. The patient has irritable bowel syndrome and fluctuates between constipation and diarrhea. He was evaluated in the emergency room where he had a CT of the abdomen and pelvis without contrast that showed no acute pathology and the plan was for the patient to be discharged home, but when he laid flat on the ER stretcher, his pulse oximetry dropped to 87%. It was felt that he probably had mild CHF exacerbation and he receives 40 mg of Lasix IV. Of note, the patient had an episode of epistaxis in early April while on Xarelto. His nose was balloon. He is followup with ENT and Xarelto has been held this whole time. He was found to have a hemoglobin of 7.5 and this was felt to be secondary to his epistaxis. The patient was felt to have symptomatic anemia and he was admitted for transfusion. He received 1 PRBC. This morning, the patient states that he was feeling well, denies shortness of breath or any other complaints. I contacted the Cardiology nurse practitioner (France Sheikh) and the patient is scheduled to have a cardioversion with Dr. German next week, so his Xarelto will be resumed today so he can be anticoagulated for the procedure. Also of note is the thing that the patient takes metformin for his diabetes as outpatient and his creatinine is 1.6. His renal function is to be monitored closely and if he remains in that range, may be his metformin should be discontinued as this can increase his risk of lactic acidosis. The patient is medically stable to be discharged home today to follow up with his primary care provider and Dr. German as outpatient. PHYSICAL EXAMINATION: Vital Signs: Temperature 97.6, heart rate is 76, respiratory rate is 18, oxygen saturation 97% on room air, blood pressure is 132 /80. General: The patient is pleasant gentleman, sitting up in the bed in no acute distress. CVS: Normal S1, S2. Regular rate and rhythm. Chest: Breath sounds bilaterally decreased with no added sounds. Abdomen: Soft, nontender, nondistended. Bowel sounds are present. Extremities: No edema. Neuro: He is alert and oriented x3, able to move all 4 extremities. DIET: Heart healthy, consistent carb diet. ACTIVITY: As tolerated. DISPOSITION: To home. STATUS WHILE IN THE HOSPITAL: Observation. Please keep in mind, this is a summarized version of this patient's hospital stay. If you need more information, please feel free to call me at [phone] or please obtain the full medical records. TIME SPENT: Approximately 40 minutes was spent to complete this discharge. [id number]/[facility] #: [id number] ALBINO
== END 2017-05-22 13:25 | disposition home or self-care (01) ==
LOC: ED 13:49 → MED 18:25
PROVIDERS: ADMIT Internal Medicine; ATTEND Internal Medicine
DX: D62 Acute posthemorrhagic anemia (principal); R04.0 Epistaxis; J90 Pleural effusion, not elsewhere classified; I50.30 Unspecified diastolic (congestive) heart failure; I25.10 Atherosclerotic heart disease of native coronary artery without angina pectoris; E11.9 Type 2 diabetes mellitus without complications; N18.9 Chronic kidney disease, unspecified; E78.5 Hyperlipidemia, unspecified; I10 Essential (primary) hypertension; R09.02 Hypoxemia; J44.9 Chronic obstructive pulmonary disease, unspecified; Z95.0 Presence of cardiac pacemaker; N20.0 Calculus of kidney; I48.91 Unspecified atrial fibrillation; K58.9 Irritable bowel syndrome, unspecified; Z86.19 Personal history of other infectious and parasitic diseases; R07.9 Chest pain, unspecified; Z87.891 Personal history of nicotine dependence
CPT/HCPCS: 36415; 36430; 71045; 74176; 80048; 80053; 81003; 81015; 82270; 82728; 82746; 82947; 83540; 83605; 83690; 83735; 83880; 84484; 85025; 86140; 86850; 86900; 86901; 86922; 87040; 87086; 93005; 94760; 96374; 96375; 99283; A9270-GY; G0378; J1644; J1940; J2270; J2405; J3475; P9040

== ENCOUNTER 2017-06-01 14:45 | Inpatient (IN) | payer MEDICARE, MEDICAID ==
--- OUTSIDE RECORDS SUMMARY | 2017-06-01 15:14 | XMS REPORT ---
:1960 External Reference #:[id number] Author Organization [facility] Address [address] [place] [address] Phone [phone] Care Team Providers Name Role Phone Bhargavi Sheikh N.P. Care Team Information Senior Sharepoint Developer Unavailable Payers Type Date Identification Numbers Payment Provider Subscriber Medicare Primary Policy Number: [id number] Medicare-[facility] Gov[employer] Fer Pratt [employer] PayID: [id number] [address] [place] [address] Medigap Part B Policy Number: [id number] Medicaid/I Fer Pratt [employer] Name: 1 2 Insurance Primary PayID: [id number] [address] [place] [address] Problems Date Description Provider Status Onset: 05/08/2017 Essential hypertension Francisco Holt MD Active Onset: 05/08/2017 Chronic rhinitis Francisco Holt MD Active Onset: 05/08/2017 Epistaxis Francisco Holt MD Active Family History Date Family Member(s) Problem(s) Comments General Cancer General Diabetes General Heart Disease General Stroke General High Blood Pressure General High Cholesterol Social History Type Date Description Comments Occupation Disabled Cigarette Use Former Cigarette Smoker Cigars Never Smoked Cigars Pipe Never Smoked A Pipe Smokeless Tobacco Never Used Smokeless Tobacco ETOH Use Denies alcohol use Allergies, Adverse Reactions, Alerts Date Description Reaction Status Severity Comments 08/30/2016 Shellfish Urticaria active Medications Medication Date Status Form Strength Qnty SIG Indications Ordering Provider Magnesium 07/22/ Active Tablets 400(241.3M 60tabs 1 by Vladislav German 2017 g) mg mouth Qutaybeh twice a DR. day Aspirin 07/10/ Active Tablets DR 81mg 1 by You German mouth Qutaybeh every DR. day Metoprolol 07/05/ Active Tablets ER 25mg 30tabs 1 by [id number] Maghaydah, Succinate ER 2016 24HR mouth Qutaybeh every DR. day Nasonex 02/03/ Active Suspension 50mcg/Act 1units 1 [place] Monserrat 2007 Jon Each Qutaybeh Side qd DR. Arteaga HFA / Active Aerosol 108(90Base 1 po bid Unknown 0000 ) mcg/Act prn Diltiazem HCL / Active Tablets 30mg 180tab 1 by Maghaydah, 0000 s mouth Qutaybeh twice a DR. day Brilinta / Active Tablets 90mg 60tabs 1 tab by Magleeroyydah, 0000 mouth Qutaybeh twice a DR. day Nitrostat / Active Tablets Sub 0.4mg 25tabs one sl Magleeroyydah, 0000 q5min up Qutaybeh to 3 DR. doses as needed Cetirizine HCL / Active Tablets 10mg 1 by Unknown 0000 mouth every day Janumet / Active Tablets 50-1000mg take 1 Unknown 0000 tablet by mouth twice a day Symbicort / Active Aerosol 160-4.5mcg 2 puff Unknown 0000 /Act twice a day Omeprazole / Active Tablets DR 20mg 1 by Unknown 0000 mouth every day Gabapentin / Active Capsules 300mg 1 by Unknown 0000 mouth twice a day Lisinopril / Active Tablets 2.5mg 1 by Unknown 0000 mouth every day Triamterene/Hy / Active Capsules 37.5-25mg 1 tablet Unknown drochlorothiaz 0000 po daily ruben Atorvastatin / Active Tablets 80mg 90tabs Take One Maghaydah, Calcium 0000 Tablet Qutaybeh By Mouth DRLina Every Day Vital Signs Date Vital Result Comment 05/08/2017 Weight 17.00 lb Weight in kg's 7.711 Height 68 inches 5'8" Height in cm's 172.7 cm BMI (Body Mass Index) 2.6 kg/m2 Results Description No Information Procedures Description No Information Encounters Type Date Location Provider CPT E/M Dx Office Visit 05/08/2017 1:45p [place],After 02/17/07 [place] [address] R04.0 J31.0 Plan of Care 05/08/2017 - Francisco Ruparelia, MDR04.0 EpistaxisComments:Patient has had no active bleeding for 2 weeks I suggest presently just using some K-Y jelly at bedtime for lubrication and hydration of the nasal mucosa recheck if bleeding persists [id number] Chronic rhinitis
--- OUTSIDE RECORDS SUMMARY | 2017-06-01 15:16 | XMS REPORT ---
:1960 External Reference #:[id number] Author Organization [facility] Address [address] [address] Phone [phone] Care Team Providers Name Role Phone Erasmo Hill MD Primary Care Physician Unavailable Payers Type Date Identification Numbers Payment Provider Subscriber Medicare Primary Effective: Policy Number: Medicare Fer Pratt 2007 [id number] PayID: [id number] [address] [place] [address] [facility] Policy Number: [id number] Medicaid Fer Pratt PayID: [id number] [address] [place] [address] Problems Date Description Provider Status Onset: 06/04/2011 Chest pain Jodran Rojas M.D. Onset: 06/04/2011 Electrocardiogram abnormal Jordan Rojas M.D. Onset: 06/04/2011 Benign essential hypertension Jordan Rojas M.D. Onset: 06/04/2011 Hyperlipidemia Jordan Rojas M.D. Onset: 06/04/2011 Automatic implantable cardiac Jordan Rojas defibrillator in situ [facility] Onset: 07/11/2011 Coronary arteriosclerosis [facility] Schedule Active Onset: 07/11/2011 Chronic ischemic heart disease [facility] Schedule Active Onset: 05/26/2012 Tachycardia Jordan [...] apnea syndrome Macey Cespedes DNP, RN, Active [facility] Onset: 07/19/2016 Hypersomnia Macey Cespedes DNP, RN, Active [facility] Onset: 11/01/2016 Epistaxis Macey Cespedes DNP, RN, Active [facility] Family History Date Family Member(s) Problem(s) Comments [...] day Exercise Type/Frequency Exercises regularly Works at [employer] Hx Text Allergies, Adverse Reactions, Alerts [...] 100ta two qd prn Qutaybeh 2007 bs SLina German M.D. Nasonex 02/03/ Active Suspension 50mcg/Act 1Mon 1 Tuthill Timmy 2007 Jon Each S. Side qd Etelvina German Albuterol / Active Aerosol 90mcg/Act 1 po bid Unknown 0000 prn Diltiazem HCL / Active Tablets 30mg 180ta 1 by mouth Timmy bs twice a S. day Etelvina German Brilinta / Active Tablets 90mg 180ta 1 tab by Bhargavi S. 0000 bs mouth Foster, twice a N.P. day (on hold since 03/1017 patient ran out) Nitrostat / Active Tablets Sub 0.4mg 25tab one sl Qutaybeh 0000 s q5min up S. to 3 doses [...] Hx Tablets ? 60tab 1 by mouth Timmy 2016 - s daily S. 12/04/ Monserrat Cuellar M.D. Magnesium 10/31/ Hx Solution 2GM/50ML 1unit 2 gm Arnulfo Sulfate 2016 - s infusion F. 11/08/ over 1 Allie, 2016 hour x 1 M.D. dose Magnesium Oxide 10/31/ Hx Tablets 400mg 30tab 1 by mouth Qutaybeh 2015 - s bid S. 07/10/ (Unsure If [facility] 2016 Takng) , Etelvina Metoprolol 07/16/ Hx Tablets 100mg 60tab 1 po bid Qutaybeh Tartrate 2012 - s (taken S. 06/19/ with 25 mg [facility] 2016 tabs) , Etelvina Metoprolol 30/ Hx Tablets 25mg 60tab 1 po bid Qutaybeh Tartrate 2012 - s (with S. 10/16/ 100mg to [facility] 2012 equal , M.D. 125mg bid) Cardizem 05/26/ Hx Tablets 30mg 180ta 1 by mouth Qutaybeh 2012 - bs twice S. 12/31/ daily [facility] 2015 , Etelvina Lisinopril 04/25/ Hx Tablets 5mg 30tab 1/2 po qd Qutaybeh 2009 - s (decreased S. 07/09/ /03/04) [facility] 2016 , Etelvina Metoprolol 04/25/ Hx Tablets 100mg 60tab 1 po bid Qutaybeh Tartrate 2009 - s S. 07/16/ [facility] 2012 , Etelvina Metformin HCL 03/31/ Hx Tablets 1000mg 1 po bid Qutaybeh 2008 - S. 12/18/ [facility] 2013 , Etelvina Metoprolol 03/31/ Hx Tablets ER 50mg 90tab 1 and 02/18 Qutaybeh 2009 - 24HR s po bid S. 04/25/ [facility] 2010 , Etelvina Lisinopril 02/03/ Hx Tablets 5mg 30tab 1 po qd Qutaybeh 2007 - s S. 02/03/ [facility] 2008 , Etelvian Metoprolol 02/03/ Hx Tablets ER 50mg two qd Qutaybeh 2007 - S. [facility] , Etelvina Metformin HCL 02/03/ Hx Tablets 1000mg two qd Qutaybeh 2007 - S. 03/31/ [facility] 2009 Etelvina Lisinopril 02/03/ Hx Tablets 2.5mg qd Qutaybeh 2007 - S. 04/25/ [facility] 2009 , Etelvina Prevacid 02/03/ Hx Capsules DR 30mg 90cap 1 PO qd Qutaybeh 2007 - s S. 06/19/ [facility] 2016 , Etelvina Glipizide XL 02/03/ Hx Tablets ER 10mg 100ta bid PO Qutaybeh 2007 - 24HR bs S. 06/19/ [facility] 2016 , Etelvina Albuterol 02/03/ Hx 3unit 2 Puffs Up Qutaybeh Inhaler 2007 - s To qid prn S. 06/06/ [facility] 2010 , Etelvina Singulair 02/03/ Hx Tablets 10mg 30tab 1 PO qd Qutaybeh 2007 - s S. 07/09/ [facility] 2016 , Etelvina Lescol 02/03/ Hx Tablets ER 80mg 30tab 1 PO hs Qutaybeh 2007 - 24HR s S. 06/06/ [facility] 2010 Etelvina Lanoxin 06/16/ Hx Tablets 0.25mg 30tab 1 PO qd Qutaybeh 2007 - s S. 06/19/ [facility] 2016 , Etelvina Metoprolol 06/16/ Hx Tablets 50mg 110ta 1and 02/18 Qutaybeh Tartrate 2007 - po bid S. 2007 , Etelvina Lisinopril 06/16/ Hx Tablets 2.5mg 30tab 1 po qd Qutaybeh 2007 - s S. 2007 Etelvina Digitek / Hx Tablets 0.25mg 1 PO qd Qutaybeh 2007 - S. 2007 Etelvina Metoprolol / Hx Tablets ER 25mg 90tab 1po bid Qutaybeh Succinate ER 2007 - 24HR s S. 06/16/ 2007 Etelvina Aspirin 04/16/ Hx Tablets 325mg 1 PO qd Qutaybeh 2007 - S. 07/10/ [facility] 2016 , Etelvina Glucotrol 04/16/ Hx Tablets [...] Tartrate 0000 - twice a day (taken 2017 with 100 mg tabs) Metformin HCL / Hx Tablets 1000mg 1 by mouth Unknown 0000 - twice a day 2017 Triam / Hx Cream 0.1% Midura, 0000 - MD Erasmo 2016 Triamcinolone / Hx Cream 0.1% apply thin Unknown Acetonide 0000 - film twice daily 2017 Patanol / Hx Drops prn for Unknown 0000 - allergies 2016 Medications Administered in Office Medication Date Status Form Strength Qnty SIG Indications Ordering Provider Depomedrol Administered Injection Jaz 80MG 011 DAVEY Avelar Vital Signs Date Vital Result Comment 05/06/2017 Height 67 inches 5'7" Weight 178.00 lb with shoes Heart Rate 78 /min BP Systolic Sitting 126 mmHg Lue reg cuff BP Diastolic Sitting 72 mmHg Lue reg cuff BP Systolic Standing 140 mmHg Lue reg cuff BP Diastolic Standing 74 mmHg Lue reg cuff Respiratory Rate 16 /min BMI (Body Mass Index) 27.9 kg/m2 Ejection Fraction 30-35% 02/20/17 echo 04/16/2017 Height 67 inches 5'7" Weight 186.25 [...] Non- 47.5 >60 Egfr 61.1 >60 12 Basic Metabolic Panel 12/18/2015 Sodium 137 mmol/L [...] >60 13 Inr/Protime 12/18/2015 Inr 1.01 0.89-1.11 Laboratory test finding 12/18/2015 Partial Thrombo Time [...] Blood Cells % 0 Basic Metabolic Panel 12/04/2015 Sodium 136 mmol/L [...] 11/09/2015 Magnesium 1.3 mg/dL Low 1.9-2.7 16 Comp Metabolic Panel 10/31/2015 Sodium 135 mmol/L [...] Egfr Non- 52.6 >60 Egfr 67.7 >60 17 CBC Auto Diff 10/31/2015 White Blood Count [...] Blood Cells % 0.8 Laboratory test finding 10/31/2015 Digoxin 0.2 ng/ml Low 0.8-2.0 18 Magnesium 1.2 mg/dL Low 1.9-2.7 19 Lipid Profile (Trig/Chol/HDL) 10/31/2015 Triglycerides 279 mg/dL 20 Cholesterol 137 mg/dL 21 HDL Cholesterol 31.1 mg/dL 22 LDL Cholesterol 50 mg/dL 23 Laboratory test finding 10/31/2015 Creatine Kinase(CK) 63 U/L 10-223 24 Thyroid Panel 10/31/2015 Free T4 (Free Thyroxine) 0.93 ng/dL 0.61-1.12 25 Thyroxine 9.36 ?g/dL 6.09-12.23 26 TSH (Thyroid Stim Horm) 0.68 mcIU/mL 0.34-5.60 27 CBC W/Auto Diff 07/08/2014 White Blood Count [...] 0-2 Nucleated Red Blood Cells % 0 BMP Basic Metabolic Panel (8) 07/08/2014 Sodium 127 mmol/L Low 133-145 Chloride 95 mmol/L Low 101-111 Co2 Carbon Dioxide 25 mmol/L 22-32 Glucose 461 mg/dL High 70-100 Blood Urea Nitrogen 35 mg/dL High 6-24 Creatinine 1.47 mg/dL High 0.67-1.17 BUN/Creatinine Ratio 23.8 High 8-20 Calcium 9.3 mg/dL 8.6-10.3 Egfr Non- 50.1 >60 Egfr 64.4 >60 28 Potassium 6.4 mmol/L High 3.5-5.0 29 Anion Gap 7 mmol/L 2-11 Hepatic Liver Functions PNL 07/08/2014 Total Protein 7.2 g/dL 6.4-8.9 Albumin 3.5 g/dL 3.2-5.2 Globulin 3.7 g/dL 2-4 Albumin/Globulin Ratio 0.9 Low 1-3 Total Bilirubin 0.40 mg/dL 0.2-1.0 Direct Bilirubin 0.10 mg/dL 0.03-0.18 Indirect Bilirubin 0.3 mg/dL 0.3-1.0 Alkaline Phosphatase 117 U/L High 34-104 Alt 15 U/L 7-52 Ast 11 U/L Low 13-39 Laboratory test finding 07/08/2014 Amylase 56 U/L 29-103 Lipase 69 U/L 11.0-82.0 B Type Natriuretic Peptide 28 pg/mL 30 Laboratory test finding 07/12/2010 Glucose 439 mg/dL High 70-100 31, 32 Laboratory test finding 04/08/2010 Stool For Blood NEGATIVE Negative Laboratory test finding 06/15/2009 Glucose 369 mg/dL High 70-100 33 Laboratory test finding 06/15/2009 Glucose Stat 343 mg/dL High 70-100 34 Laboratory test finding 06/15/2009 Glucose Stat 203 mg/dL High 70-100 35 Laboratory test finding 06/15/2009 Glucose Stat 271 mg/dL High 70-100 36 Laboratory test finding 06/15/2009 Glucose 269 mg/dL High 70-100 37 Basic Metabolic Panel 06/14/2009 Sodium 130 mmol/L Low 135-145 Potassium 3.7 mmol/L 3.5-5.0 Chloride 93 mmol/L Low 101-111 Co2 (Carbon Dioxide) 28.0 mmol/L 22-32 Anion Gap 9.0 mmol/L 2-11 38 Glucose 345 mg/dL High 70-100 39 BUN 18 mg/dL 6-24 Creatinine 0.60 mg/dL 0.50-1.40 One Over Creatinine 1.60 BUN/Creatinine Ratio 30.0 High 8-20 Calcium 9.1 mg/dL 8.1-9.9 40 eGFR Non- 152.8 > 60 eGFR 184.9 > 60 41 Laboratory test finding 06/14/2009 Glucose Stat 542 mg/dL High 70-100 42 Basic Metabolic Panel 06/14/2009 Sodium 127 mmol/L Low 135-145 Potassium 3.9 mmol/L 3.5-5.0 Chloride 93 mmol/L Low 101-111 Co2 (Carbon Dioxide) 24.0 mmol/L 22-32 Anion Gap 10.0 mmol/L 2-11 43 Glucose 579 mg/dL High 70-100 44 BUN 24 mg/dL 6-24 Creatinine 0.77 mg/dL 0.50-1.40 One Over Creatinine 1.20 BUN/Creatinine Ratio 31.2 High 8-20 Calcium 8.5 mg/dL 8.1-9.9 45 eGFR Non- 114.6 > 60 eGFR 138.7 > 60 46 Laboratory test finding 06/14/2009 Glucose Stat 579 mg/dL High 70-100 47 Laboratory test finding 06/14/2009 Glucose Stat 525 mg/dL High 70-100 48 1 Because ethnic [...] 15-29 5 Kidney failure <15 (or dialysis) 07/25/16 3 Because ethnic data is not [...] K:6.3 Called to IQRA Nielsen at: 16:28:49 by:[id number] Read back by:IQRA Nielsen 10 Because ethnic [...] 5 Kidney failure <15 (or dialysis) 11 Skills Trainer: [id number] CASSIA THRASHER 12 Because ethnic data is [...] 11/09/15 am after IV Mag infusion 17 Because ethnic data is not always readily [...] 15-29 5 Kidney failure <15 (or dialysis) 18 fasting in next few days CC: PMD 19 fasting in next few days CC: PMD 20 Desirable <150 Borderline high 150-199 High 200-499 Very High >500 21 Desirable <200 Borderline high 200-239 High >239 22 Low <40 Desirable: 40-60 High: >60 23 Desirable: <100 mg/dL Near Optimal: 100-129 mg/dL Borderline High: 130-159 mg/dL High: 160-189 mg/dL Very High: >189 mg/dL 24 fasting in next few days CC: PMD 25 fasting in next few days CC: PMD 26 fasting in next few days CC: PMD 27 fasting in next few days CC: PMD 28 Because ethnic data is not always readily [...] 15-29 5 Kidney failure <15 (or dialysis) 29 Critical Result K:6.4 Called to RAINA HAYS at: 15:35:57 by:[id number] Read back by:RAINA HAYS 30 >100 to <200 pg/mL: likely compensated congestive heart failure (CHF) 200 to 400 pg/mL: likely moderate CHF >400 pg/mL: likely moderate to severe CHF 31 CALL RESULTS TO DERECK AT 4110 32 VERBAL TO DERECK BY ALEKSANDRA at 1222 on 07/12/10. Results read back accurately. 33 Note change in reference range as of 10/08/07. The change was based on recommendations from the [place] [employer]. 34 Note change in reference range as of 10/08/07. The change was based on recommendations from the [place] [employer]. 35 Note change in reference range as of 10/08/07. The change was based on recommendations from the [place] [employer]. 36 Note change in reference range as of 10/08/07. The change was based on recommendations from the [place] [employer]. 37 Note change in reference range as of 10/08/07. The change was based on recommendations from the [place] [employer]. 38 Anion gap measurement may be of limited value in the presence of any alkalosis, especially in a combined acid base disorder. . 39 Note change in reference range as of 10/08/07. The change was based on recommendations from the [place] [employer]. 40 Please note change in reference range effective 07 . 41 Because ethnic data is not always readily [...] 15-29 5 Kidney failure <15 (or dialysis) 42 VERBAL TO ANAYELI BY OSBALDO at 1918 on 04/28/10. Results read back accurately. Note change in reference range as of 10/08/07. The change was based on recommendations from the [place] [employer]. 43 Anion gap measurement may be of limited value in the presence of any alkalosis, especially in a combined acid base disorder. . 44 VERBAL TO ANAYELI BY RCOSBALDO at 2022 on 06/14/09. Results read back accurately. Note change in reference range as of 10/08/07. The change was based on recommendations from the [place] [employer]. 45 Please note change in reference range effective 07 . 46 Because ethnic data is not always readily [...] 15-29 5 Kidney failure <15 (or dialysis) 47 VERBAL TO ANAYELI BY RCOSBALDO at 2022 on 06/14/09. Results read back accurately. Note change in reference range as of 10/08/07. The change was based on recommendations from the [place] [employer]. 48 VERBAL TO SMITA BY RCOSBALDO at 2306 on 06/14/09. Results read back accurately. Note change in reference range as of 10/08/07. The change was based on recommendations from the [place] [employer]. Procedures Date CPT Code Description Status Comment 05/06/2017 70203 EKG Tracing & Interpretation Completed 04/23/2017 97102 Treadmill Interp/Report Only Completed 04/23/2017 40271 Stress Test Supervsn W/Out I/R Completed 02/21/2017 95352 Icd Eval With Inerative Adjustmt Dual Lead Completed System 02/21/2017 52825 Icd Eval With Inerative Adjustmt Dual Lead Completed System 02/21/2017 85123 Icd Eval With Inerative Adjustmt Dual Lead Completed System 02/21/2017 74528 EKG Tracing & Interpretation Completed 02/20/2017 93650 ECHO Transthoracic, Real-Time 2D With Doppler Completed And Color Flow 02/20/2017 50214 ECHO Transthoracic, Real-Time 2D With Doppler Completed And Color Flow 12/12/2016 10971 Icd Eval With Inerative Adjustmt Dual Lead Completed System 12/12/2016 71602 Icd Eval With Inerative Adjustmt Dual Lead Completed System 12/10/2016 17432 EKG Tracing & Interpretation Completed 12/10/2016 98907 EKG Tracing & Interpretation Completed 09/25/2016 78981 Icd Eval With Inerative Adjustmt Dual Lead Completed System 09/09/2016 69609 EKG Tracing & Interpretation Completed 07/19/2016 22952 Echocardiogram, Limited Study Completed 06/28/2016 31545 Polysomnography Sleep Staging 4+ Parameters Completed 06/18/2016 32178 Icd Eval With Inerative Adjustmt Dual Lead Completed System 04/02/2016 68888 Icd Eval With Inerative Adjustmt Dual Lead Completed System 03/28/2016 40793 EKG Tracing & Interpretation Completed 03/25/2016 94988 ECHO Transthoracic, Real-Time 2D With Doppler Completed And Color Flow 02/15/2016 91310 EKG, Interpretation Only Completed 01/09/2016 29356 Icd Eval With Inerative Adjustmt Dual Lead Completed System 01/01/2016 06440 EKG Tracing & Interpretation Completed 12/28/2015 51109 EKG, Interpretation Only Completed 12/27/2015 23948 Intravascular Blood Flow Velocity Completed 12/27/2015 10100 Left Heart Cath. Incl S/I Coronaries, Angio S/I Completed V Gram If Done 12/27/2015 93123 EKG, Interpretation Only Completed 12/27/2015 62056 Percutaneous Transcatheter Placement Of Completed Intracoronary Stent 12/27/2015 89939 Percutaneous Transcatheter Placement Of Completed Intracoronary Stent 11/20/2015 62318 Echocardiogram, Limited Study Completed 10/16/2015 92242 Icd Eval With Inerative Adjustmt Dual Lead Completed System 09/25/2015 06522 Holter Monitor Review (24 hr)dr review & Completed interp only 09/21/2015 38622 ECG Monitor/Recording W/Visual Superimposition Completed Scanning 09/18/2015 96838 EKG Tracing & Interpretation Completed 07/06/2015 19521 Interrogation Device Eval In Person W/ Completed Analysis,Single,Dual,Mul 05/29/2015 16047 ECHO Transthoracic, Real-Time 2D With Doppler Completed And Color Flow 03/28/2015 51350 Interrogation Device Eval In Person W/ Completed Analysis,Single,Dual,Mul 01/19/2015 80871 Icd Check Single,Dual Or Multiple In Person Completed W/ Incl Heart Rhyth 12/26/2014 91685 EKG Tracing & Interpretation Completed 12/22/2014 71833 Stress Test Supervsn W/Out I/R Completed 12/22/2014 61695 Treadmill Interp/Report Only Completed 11/08/2014 04857 EKG Tracing & Interpretation Completed 10/28/2014 64492 Icd Eval With Inerative Adjustmt Dual Lead Completed System 08/04/2014 41261 ECHO Transthoracic, Real-Time 2D With Doppler Completed And Color Flow 07/27/2014 20387 Icd Check Single,Dual Or Multiple In Person Completed W/ Incl Heart Rhyth 05/02/2014 72014 Treadmill Interp/Report Only Completed 05/02/2014 92444 Stress Test Supervsn W/Out I/R Completed 05/02/2014 29930 EKG, Interpretation Only Completed 05/01/2014 86045 EKG, Interpretation Only Completed 04/18/2014 93916 Icd Eval With Inerative Adjustmt Dual Lead Completed System 04/11/2014 53226 EKG Tracing & Interpretation Completed 04/06/2014 25748 EKG, Interpretation Only Completed 02/03/2014 96267 Icd Eval With Iterative Adjustmt Multiple Lead Completed System 10/29/2013 22172 Icd Check Single,Dual Or Multiple In Person Completed W/ Incl Heart Rhyth 09/29/2013 94097 Treadmill Interp/Report Only Completed 09/29/2013 43016 Stress Test Supervsn W/Out I/R Completed 09/23/2013 74598 Treadmill Interp/Report Only Completed 09/23/2013 05094 Stress Test Supervsn W/Out I/R Completed 08/04/2013 66255 ECHO Transthoracic, Real-Time 2D With Doppler Completed And Color Flow 07/27/2013 48628 Icd Check Single,Dual Or Multiple In Person Completed W/DR Incl Heart Rhyth 07/26/2013 58395 EKG Tracing & Interpretation Completed 05/25/2013 03934 Icd Check Single,Dual Or Multiple In Person Completed W/DR Incl Heart Rhyth 01/26/2013 52661 Icd Check Single,Dual Or Multiple In Person Completed W/DR Incl Heart Rhyth 12/24/2012 53496 Treadmill Interp/Report Only Completed 12/24/2012 68630 Stress Test Supervsn W/Out I/R Completed 12/08/2012 51009 ECHO Transthoracic, Real-Time 2D With Doppler Completed And Color Flow 11/24/2012 31720 EKG Tracing & Interpretation Completed 11/03/2012 04196 Icd Check Single,Dual Or Multiple In Person Completed W/DR Incl Heart Rhyth 09/03/2012 48601 Rad Exam; Knee, Ap&L Completed 09/03/2012 28691 Xray Knee 3 Views Completed 07/30/2012 26125 EKG Tracing & Interpretation Completed 07/07/2012 77050 Holter Monitoring 24 HR New Completed 06/25/2012 67137 Icd Check Single,Dual Or Multiple In Person Completed W/DR Incl Heart Rhyth 06/09/2012 04049 EKG Tracing & Interpretation Completed 05/28/2012 20658 Color Flow Doppler/Interp & Reprt Completed 05/28/2012 40499 Pulse Wave/Continuous-Interp.RPT Completed 05/28/2012 33305 ECHO Transthorasic Realtime 2D W Doppler & Completed Color Flow Hosp 05/26/2012 49064 EKG Tracing & Interpretation Completed 04/02/2012 94039 Icd Check Single,Dual Or Multiple In Person Completed W/DR Incl Heart Rhyth 11/21/2011 38787 Icd Check Single,Dual Or Multiple In Person Completed W/DR Incl Heart Rhyth 07/11/2011 16996 ECHO Transthoracic, Real-Time 2D With Doppler Completed And Color Flow 06/20/2011 70802 Icd Check Single,Dual Or Multiple In Person Completed W/DR Incl Heart Rhyth 06/04/2011 85533 EKG Tracing & Interpretation Completed 02/28/2011 35170 Icd Check Single,Dual Or Multiple In Person Completed W/DR Incl Heart Rhyth 01/17/2011 93884 Xray Knee 3 Views Completed R 01/17/2011 30358 Rad Exam; Knee, Ap&L Completed 01/17/201103586 Inject/Drain Joint/Bursa Major Completed 12/26/2010 88248 Icd Check Single,Dual Or Multiple In Person Completed W/ Incl Heart [facility] 10/03/2010 64933 Icd Check Single,Dual Or Multiple In Person Completed W/ Incl Heart [facility] 07/12/2010 91785 Stress Test Supervsn W/Out I/R Completed 07/12/2010 50569 Treadmill Interp/Report Only Completed 07/04/2010 64222 ECHO Transthoracic, Real-Time 2D With Doppler Completed And Color Flow 06/12/2010 01031 Icd Check Single,Dual Or Multiple In Person Completed W/ Incl Heart [facility] 06/06/2010 60384 EKG Tracing & Interpretation Completed 03/15/2010 50420 Icd Check Single,Dual Or Multiple In Person Completed W/ Incl Heart [facility] 01/05/2010 07554 Icd Check Single,Dual Or Multiple In Person Completed W/ Incl Heart [facility] 10/18/2009 30296 EKG Tracing & Interpretation Completed 10/12/2009 25826 Icd Eval With Inerative Adjustmt Dual Lead Completed System 08/10/2009 75760 Icd Check Single,Dual Or Multiple In Person Completed W/DR Law Heart [facility] 07/10/2009 84786 ECHO Transthoracic, Real-Time 2D With Doppler Completed And Color Flow 06/21/2009 50135 EKG Tracing & Interpretation Completed 06/14/2009 23979 Selective Coronary Angioplasty Completed 06/14/2009 11540 S/I/R Inj Proc Vent And Or Atrial Completed 06/14/2009 05876 Coronary Angiography Completed 06/14/2009 90799 Inj Proc LFT Vent/LFT Atrl Angio Completed 06/14/2009 26886 Left Heart Catheterization Completed 06/08/2009 38512 Icd Check Single,Dual Or Multiple In Person Completed W/ Incl Heart [facility] 06/07/2009 51505 EKG Tracing & Interpretation Completed 05/16/2009 98914 Stress Test Supervsn W/Out I/R Completed 05/16/2009 78762 Treadmill Interp/Report Only Completed 04/25/2009 95251 EKG Tracing & Interpretation Completed 03/16/2009 58249 Icd Check Remote Up To 90 Days Completed Single,Dual,Multiple Lead 12/08/2008 57041 Icd Check Single,Dual Or Multiple In Person Completed W/DR Incl Heart Rhyth 12/01/2008 88640 EKG, Interpretation Only Completed 12/01/2008 59501 EKG Tracing & Interpretation Completed 11/10/2008 37504 ECHO Transthoracic, Real-Time 2D With Doppler Completed And Color Flow 09/08/2008 28407 Icd Check Single,Dual Or Multiple In Person Completed W/DR Incl Heart Rhyth 07/05/2008 10208 EKG Tracing & Interpretation Completed 06/09/2008 35063 Icd Check Single,Dual Or Multiple In Person Completed W/DR Incl Heart Rhyth 03/31/2008 89182 EKG Tracing & Interpretation Completed 03/18/2008 69811 Color Doppler Completed 03/18/2008 94314 Pulse Doppler & Continuous Wave Completed 03/18/2008 88681 Echocardiogram Completed 03/18/2008 94144 ECHO Transthoracic, Real-Time 2D With Doppler Completed And Color Flow 03/17/2008 19336 Icd Check Single,Dual Or Multiple In Person Completed W/DR Incl Heart Rhyth 03/10/2008 40037 EKG Tracing & Interpretation Completed 03/10/2008 62588 EKG Tracing & Interpretation Completed 03/10/2008 08168 EKG Tracing & Interpretation Completed 02/04/2008 25024 Analysis Aicd DC W/Out Reprogramg Completed 11/25/2007 12696 EKG Tracing & Interpretation Completed 10/23/2007 79498 Echocardiogram Completed 10/23/2007 36593 Echocardiogram Completed 10/23/2007 49631 Pulse Doppler & Continuous Wave Completed 10/23/2007 90083 Pulse Doppler & Continuous Wave Completed 10/23/2007 87375 Pulse Doppler & Continuous Wave Completed 10/23/2007 37790 Color Doppler Completed 10/23/2007 64936 Color Doppler Completed 06/17/2007 44037 EKG Tracing & Interpretation Completed 06/17/2007 58748 EKG Tracing & Interpretation Completed 05/28/2007 52025 Holter Monitor Completed 05/28/2007 61516 Holter Monitor Completed 05/28/2007 95308 Echocardiogram Completed 05/28/2007 55544 Pulse Doppler & Continuous Wave Completed 05/28/2007 52368 Pulse Doppler & Continuous Wave Completed 05/28/2007 71979 Color Doppler Completed 04/16/2007 68434 EKG Tracing & Interpretation Completed 04/06/2007 [address] Com RT And LT Catheterization Completed 04/06/2007 34706 Com RT And LT Catheterization Completed 04/06/2007 45154 Inj Proc LFT Vent/LFT Atrl Angio Completed 04/06/2007 73361 Coronary Angiography Completed 04/06/2007 33190 Coronary Angiography Completed 04/06/2007 24423 S/I/R Inj Proc Vent And Or Atrial Completed 04/06/2007 16791 Selective Coronary Angioplasty Completed 04/06/2007 49864 Selective Coronary Angioplasty Completed 04/03/2007 39866 Color Flow Doppler/Interp & Reprt Completed 04/03/2007 95561 Pulse Wave/Continuous-Interp.RPT Completed 04/03/2007 11491 Pulse Wave/Continuous-Interp.RPT Completed 04/03/2007 35685 Echocardiogram Completed 04/03/2007 84590 EKG, Interpretation Only Completed 04/03/2007 83097 EKG, Interpretation Only Completed Encounters Type Date Location Provider CPT E/M Dx Office Visit 05/06/2017 [facility] Bhargavi Sheikh, N.P. 81902 I25.5 8:30a [place] G47.33 I48.91 R04.0 Office Visit 04/16/2017 2:15p [facility] Macey Cespedes 92339 G47.33 Services Of [place] GROSS RN, KATERINA-DEONDRE Office Visit 02/21/2017 3:20p [facility] Timmy Mercado 26339 I47.2 Etelvina German I25.9 Z95.810 I25.5 R55 Z95.810 I10 G47.33 I48.91 R94.31 Office Visit 02/19/2017 10:00a [facility] CHERELLE Mancuso 91406 Z95.810 R55 I10 I25.5 Office Visit 01/01/2017 10:00a [facility] Macey Cespedes, 84784 G47.33 Services Of [place] GROSS RN, KATERINA-DEONDRE Office Visit 12/10/2016 2:30p [facility] CHERELLE Allen 68688 I47.2 [place] I25.9 Z95.810 I10 Office Visit 11/01/2016 11:00a [facility] Macey Cespedes, 81451 G47.33 Services Of [facility] LIS GROSS[facility] G47.14 R04.0 Office Visit 09/09/2016 1:20p [facility] Timmy SLina German, 06046 G47.33 M.D. I42.9 I25.9 E78.5 I25.110 R94.31 Office Visit 08/30/2016 11:00a [facility] Maecy Cespedes, 84948 G47.33 Services Of [facility] LIS GROSS[facility] G47.14 Office Visit 07/19/2016 10:45a [facility] Macey Cespedes, 15252 G47.33 Services Of [facility] LIS GROSS, [facility] G47.14 Office Visit 07/10/2016 1:00p [facility] CHERELLE Mancuso 21267 I42.9 I25.9 R00.0 E87.5 E78.5 Office Visit 07/05/2016 3:30p [facility] Of [facility] CHERELLE Mancuso 54243 I25.9 R21 I42.9 R00.0 I10 Office Visit 06/12/2016 10:15a [facility] [place] [address] R06.83 Services Of [facility] G47.10 Office Visit 03/28/2016 3:30p [facility] CHERELLE Mancuso 88611 I42.9 R06.83 Z95.810 I25.118 M79.604 Office Visit 02/15/2016 10:20a [facility] [address] R07.9 Hospitalists I25.10 I10 Office Visit 01/01/2016 1:40p [facility] Jenisetaradha SLina German, 36713 I42.9 M.D. I25.10 I10 E78.5 R94.31 Office Visit 12/28/2015 3:28p [facility] Of Isidro Andres M.D., 67560 I25.110 [facility] At [facility] Office Visit 12/04/2015 1:40p [facility] Qutaybeh S. 11796 I42.9 Etelvina German I25.10 I10 E78.5 Office Visit 10/19/2015 3:00p [facility] Of [facility] CHERELLE Mancuso 09270 Z95.810 I42.9 R00.0 E78.5 Office Visit 09/18/2015 3:00p [facility] Qutaybeh S. Sharonydah, 44804 I42.9 M.D. Z95.810 I25.10 I10 R00.0 I44.0 Office Visit 04/21/2015 3:00p [facility] CHERELLE Mancuso 80545 I42.9 Z95.810 I25.10 I10 R53.83 Office Visit 12/26/2014 2:40p [facility] Qutaybeh S. Sharonydah, 82934 I42.8 M.D. Z95.810 I25.10 I10 Office Visit 11/08/2014 1:20p [facility] Qutaybeh S. Sharonydah, 33528 Z95.810 M.D. I42.8 I25.9 E11.9 R07.89 Office Visit 07/07/2014 3:30p [facility] CHERELLE Mancuso 87140 250.00 414.9 787.01 783.21 V45.02 285.9 Office Visit 05/04/2014 8:17a [facility], Alexia Stanton, 35225 599.0 Hospitalists M.D. 592.0 038.9 250.00 Office Visit 05/03/2014 10:26a [facility] Qutaybeh S. Sharonydah, 23320 786.50 M.D. 794.31 Office Visit 05/03/2014 8:17a [facility], Alexia Stanton, 08301 599.0 Hospitalists M.D. 592.0 038.9 790.6 Office Visit 05/02/2014 8:15a [facility], Alexia Stanton, 23579 599.0 Hospitalists M.D. 592.0 038.9 790.6 Office Visit 05/02/2014 11:23a [facility] Qutaybeh S. Ngoziah, 29869 414.9 M.D. 414.8 425.4 Office Visit 05/01/2014 8:15a [facility], Aileen Dunn, N.P. 02738 599.0 Hospitalists 592.0 038.9 250.00 Office Visit 04/30/2014 8:13a [facility], Aileen Dunn, N.P. 51425 599.0 Hospitalists 592.0 038.9 250.00 Office Visit 04/11/2014 1:20p [facility] Qutaybeh S. Maghaydah, 40556 425.4 M.D. 401.9 425.9 V45.02 414.01 Office Visit 04/07/2014 10:34a [facility], Jose Humphreys, 87230 592.0 Hospitalists M.D. 425.4 250.00 401.9 Office Visit 04/06/2014 9:06a [facility] Arnulfo Kelley M.D. 19877 414.9 425.9 427.1 Office Visit 04/06/2014 10:34a [facility], Jose Humphreys, 27812 592.0 Hospitalists M.D. 425.4 250.00 401.9 Office Visit 04/05/2014 10:33a [facility], Gary Richardson, 37024 592.0 Hospitalists N.P. 425.4 250.00 401.9 Office Visit 09/23/2013 2:06p [facility] Qutaybeh S. Magshahriar, 12348 425.4 M.D. 786.50 Office Visit 09/14/2013 1:30p [facility] CHERELLE Mancuso 99859BNZ 786.50 414.01 794.31 425.9 V45.02 Office Visit 07/26/2013 4:00p [facility] Qutaybeh S. Magleeroyydah, 05802 786.50 M.D. 414.01 794.31 V45.02 Office Visit 12/24/2012 10:30a [facility] Qutaybeh S. Magshahriar, 57257 794.31 M.DLina 414.9 414.8 Office Visit 11/24/2012 9:20a [facility] Jenisetaybbrennan S. Monserrat, 60088 V45.02 M.DLina 425.9 401.1 414.01 794.31 414.8 V72.81 786.05 Office Visit 10/16/2012 11:00a [facility] Leobardo Reynoso, 57965 724.03 Of [place] Main Office Visit 10/01/2012 10:15a [facility] Of Edmund Jasso, 66889 724.03 Shari Main Office Visit 09/03/2012 1:15p [facility] Jasso, 49335 724.3 CVic Main 719.46 Office Visit 07/30/2012 4:00p [facility] [place] [address] 401.1 Office Visit 06/09/2012 2:20p [facility] Jenisetaybbrennan S. Monserrat, 78468 794.31 M.DLina 414.01 425.9 401.1 785.0 Office Visit 05/26/2012 10:00a [facility] Jenisetaybbrennan S. Monserrat, 76892 425.9 M.DLina V45.02 414.01 401.1 794.31 272.4 785.0 786.05 Office Visit 08/12/2011 3:00p [facility] Leia Katz, N.P. 38198 414.01 425.9 401.1 Office Visit 07/25/2011 2:15p [facility]asso, 93686 717.7 C.Flip Main Office Visit 06/27/2011 9:30a [facility] Qutaybbrennan S. 97874 794.31 Etelvina German 414.01 425.9 414.8 401.1 786.50 Office Visit 06/04/2011 2:00p [facility] Qutaybeh S. Sharonydstephanie, 48312 425.9 M.D. 786.50 794.31 401.1 272.4 V45.02 Office Visit 05/24/2011 8:15a [facility]asso, 13030 724.3 C.Flip Main Office Visit 01/17/2011 10:00a [facility] Of Jaz Avelar, 13914 719.46 C.Flip COREAS-C 717.9 836.0 Office Visit 07/12/2010 9:30a [facility] Qutaybeh S. Sharonydstephanie, 65718 794.31 M.D. 412 414.01 401.1 272.4 Office Visit 06/06/2010 10:00a [facility] Qutaybeh S. Maghaydah, 92645 794.31 M.D. 425.4 425.9 V45.02 401.9 414.01 272.4 Office Visit 10/18/2009 8:40a [facility] Qutaybeh S. leeroyydah, 93469 425.9 M.D. V45.02 401.9 414.01 Office Visit 06/21/2009 11:20a [facility] Qutaybeh S. Magleeroyydah, 16978 401.9 M.D. 414.01 272.4 Office Visit 06/16/2009 3:15a [facility], Ismael Morales M.D. 70809 250.00 Hospitalists 401.9 272.4 414.9 Office Visit 06/15/2009 3:00a [facility],shweta Morales M.D. 19796 250.02 Hospitalists 414.9 401.9 790.99 Office Visit 06/14/2009 1:15a [facility] [place], 84911 790.29 Assshweta cordon M.D. Office Visit 06/14/2009 12:00p [facility] Jenisetaybeh S. 79521 414.01 Etelvina German 786.50 425.9 414.9 Office Visit 06/07/2009 10:00a [facility] Qutaybeh S. haydah, 97478 414.01 M.D. 414.8 V45.02 425.9 401.1 Office Visit 04/25/2009 2:20p [facility] Qutaybeh S. Maghaydah, 86434 V45.02 M.D. 425.9 414.01 401.1 Office Visit 03/20/2009 12:45a [facility], Lulu Grove, 79216 682.9 Hospitalists M.D. 250.00 428.0 Office Visit 03/19/2009 1:00a [facility], Lulu [place], 71560 682.9 Hospitalists M.D. 250.00 428.0 Office Visit 03/18/2009 12:15a [facility], Jose Humphreys, 30197 682.9 Hospitalists M.D. 250.00 790.29 428.0 Office Visit 12/01/2008 2:20p [facility] Qutaybeh S. Maghaydah, 97511 V45.02 M.D. 425.9 414.01 401.0 Office Visit 07/05/2008 3:20p [facility] Qutaybeh S. Maghaydah, 88942 425.9 M.D. V45.02 414.01 401.0 786.05 Office Visit 03/31/2008 1:40p [facility] Qutaybeh S. Maghaydah, 69376 425.9 M.D. V45.02 414.01 272.4 250.00 786.05 Office Visit 03/10/2008 12:40p [facility] Qutaybeh S. Maghaydah, 14159 414.01 M.D. 425.9 272.4 250.00 786.05 786.50 Office Visit 02/04/2008 11:00a [facility] Qutaybeh S. Maghaydah, 11543 414.01 M.D. 425.9 272.4 250.00 427.69 Office Visit 11/25/2007 8:40a [facility] Qutaybeh S. Maghaydah, 62645 414.01 M.D. 425.9 786.05 786.50 272.4 250.00 Office Visit 06/17/2007 11:20a [facility] Qutaybeh S. Maghaydah, 86870 414.01 M.D. 425.9 786.05 786.50 272.4 250.00 278.0 427.69 785.0 Office Visit 04/16/2007 3:00p [facility] Qutaybeh S. Maghaydah, 82460 414.01 M.D. 425.9 401.0 272.4 786.05 250.00 278.0 Plan of Care Future Appointment(s):10/14/2017 9:15 am - Macey Cespedes DNP, RN, [facility]- at [facility]06/03/2017 2:00 pm - Timmy German M.D. at [facility]05/28/2017 8:00 am - Timmy German M.D. at [facility]05/06/2017 - Bhargavi Sheikh, N.P.I25.5 Ischemic cardiomyopathyRecommendations:Restart Brillinta Discontinue ASA nowG47.33 Obstructive sleep apnea (adult) (pediatric)Recommendations:Please stop wearing CPAP now Contact Sleep office regarding adding humidification to machine.I48.91 Unspecified atrial fibrillationComments:You are in afib and rate is controlled.Follow up:ROSELIA/CV with Dr. German on 05/28 and f/u on .Recommendations:Continue cardizem and aolbxpjL19.0 Epistaxis
--- NOTE | 2017-06-01 15:19 | RAD ---
INDICATION: Altered mental status COMPARISON: CT of the brain dated November 03, 2016 TECHNIQUE: Contiguous axial sections of the brain were obtained from the skull base to the vertex without contrast. FINDINGS: The ventricles, cisterns and sulci are within normal limits. The angeles-white matter differentiation is adequately maintained and there is no sulcal effacement. No significant focal abnormality or mass effect is present. There is no evidence for intracranial hemorrhage. No significant focal osseous abnormality is present. The visualized portion of the paranasal sinuses appear clear. The mastoid air cells are well aerated bilaterally. IMPRESSION: Normal CT of the brain.
--- NOTE | 2017-06-01 15:30 | RAD ---
INDICATION: Chest COMPARISON: Most recent comparison chest x-rays dated May 21, 2017 TECHNIQUE: Single AP view of the chest was obtained. FINDINGS: Again seen is a left upper chest cardiac pacemaker 2 leads overlying the heart. There is a mild degree of cardiomegaly similar in appearance to the previous chest x-ray. The heart and mediastinum exhibit normal contour. There is patchy density overlying the bilateral lower lungs with costophrenic angle blunting, more so that was seen on the previous chest x-ray. The pulmonary vasculature appears mildly engorged and indistinct. Visualized bones are normal for the patient's age. IMPRESSION: IN THE CORRECT CLINICAL SETTING CHEST X-RAY FINDINGS COULD BE COMPATIBLE WITH WORSENING PULMONARY EDEMA RELATIVE TO THE MOST RECENT CHEST X-RAY ACQUIRED MAY 21, 2017.
[2017-06-01 16:13] LABS: ABS Basophils 0.1 10^3/ul (0-0.2); ABS Eosinophils 0.1 10^3/ul (0-0.6); ABS Lymphocytes 1.1 10^3/ul (1.0-4.8); ABS Monocytes 0.5 10^3/ul (0-0.8); ABS Neutrophils 7.6 10^3/ul (1.5-7.7); ABS Nucleated RBC 0 10^3/ul; Eosinophil % 0.9 % (0-6); Hematocrit 27 % (42-52); Hemoglobin 8.6 g/dl (14.0-18.0); Lymphocyte % 12.1 % (25-47); Mean Corpuscular HGB Conc 32 g/dl (31-36); Mean Corpuscular Hemoglobin 23 pg (27-31); Mean Corpuscular Volume 73 fL (80-94); Mean Platelet Volume 8.2 um3 (7.4-10.4); Nucleated Red Blood Cells % 0; Platelet Count 181 10^3/ul (150-450); Red Blood Count 3.74 10^6/ul (4.0-5.4); Red Cell Distribution Width 17 % (10.5-15); White Blood Count 9.4 10^3/ul (3.5-10.8)
[2017-06-01 16:29] LABS: EGFR Non-African American 45.3 (>60)
[2017-06-01] MEDS ORDERED: Aspirin 81 mg CHEW TAB* 81 MG TAB.CHEW PO ONE (17:11)
[2017-06-01] MEDS ORDERED: Nitroglycerin 2% OINT* 1 GM PAK TOPICAL ONE (17:19)
[2017-06-01] MEDS ORDERED: Furosemide IV* 10 MG/ML VIAL (40 MG) IV SLOW PU ONE (17:19)
[2017-06-01] MEDS ORDERED: Dextrose 50% Syringe 50 ML* 25 GM/50 ML SYRINGE IV PUSH PRN (18:07)
[2017-06-01] MEDS ORDERED: Albuterol HFA INHALER* 8 gm MDI INH PRN (18:08)
--- NOTE | 2017-06-01 20:39 | HP ---
CC: Anita Knight NP; Dr. German* HOSPITAL MEDICINE HISTORY AND PHYSICAL: DATE OF ADMISSION: 06/01/17 PRIMARY CARE PROVIDER: Anita Knight NP ATTENDING PHYSICIAN: Shelby Ta MD * (dictation provided by Aileen Dunn NP ). CHIEF COMPLAINT: Shortness of breath and weakness. HISTORY OF PRESENT ILLNESS: Mr. Pratt is a 56-year-old male with a past medical history of diastolic congestive heart failure, coronary artery disease status post PCI in 2016, chronic kidney disease, anemia secondary to recent episodes of epistaxis, diabetes, and AFib with pacemaker, who presents today to the hospital with concern for weakness and shortness of breath. I note that Mr. Pratt was admitted to the hospital, was discharged on 05/22/17 after being treated for epistaxis and anemia with 1 unit of packed red blood cells. The patient states that since that episode of epistaxis, the patient has followed up with his providers and the plan was to hold the CPAP used for his obstructive sleep apnea as it was felt that this was contributing to his epistaxis. He also followed up with Dr. German on 05/28/17 for a transesophageal echocardiogram and consideration of cardioversion; however, the patient was unable to be cardioverted as he had not been on his anticoagulants for appropriate length of time. The patient states he is now back on his Brilinta, Xarelto and aspirin. Since the time of his transesophageal echocardiogram on 05/28/17, the patient states he has been feeling more short of breath, dizzy and weak. This has continued and worsened over the intervening days. He noticed that he had swelling in his lower extremities. He noted falling down twice due to weakness. Yesterday, he spent almost the whole day in bed. Today, he got up to go the bathroom and fell again due to weakness and shortness of breath and therefore, called the EMS to be brought to the emergency room. He denies chest pain. He denies nausea or vomiting. He has a history of IBS with intermittent constipation and diarrhea which he states is at baseline. In the emergency room, Mr. Pratt had labs which showed a chronic anemia that has been present since 05/02/17, thought to be related to his epistaxis and his chronic kidney disease. He has a mildly high potassium at 5.1. His BUN and creatinine are at baseline at 32 and 1.59 respectively. His lactic acid is mildly elevated incidentally at 2.1. His BNP is 410. His troponin is 0.01. His chest x-ray shows concern for suggestion of worsening pulmonary edema. His CT brain is normal. His vital signs are normal. In regards to CT brain, I make note of the fact that EMS states that the patient was unable to state his date of or say how many quarters were in a dollar. I believe that is why there was concern for altered mental status which does not seem to persist at the time of my examination. PAST MEDICAL HISTORY: 1. History of epistaxis, admitted in April and May 2017, thought to be secondary to CPAP usage and anticoagulation. 2. Chronic combined diastolic-systolic congestive heart failure with ejection fraction 30% to 35%. 3. CAD with PCI in 2016 to the distal mid LAD and circumflex. 4. Chronic kidney disease. 5. Hyperlipidemia. 6. Hypertension. 7. Diabetes, non-insulin dependent. 8. COPD. 9. Pacemaker. 10. AFib. 11. Irritable bowel syndrome. 12. Obstructive sleep apnea with CPAP. 13. Ureteral calculi. MEDICATIONS: As an outpatient are: 1. Tylenol 500 mg p.o. q.12 hours. 2. Budesonide/formoterol 160/4.5 two puffs inhaled b.i.d. 3. Celecoxib 200 mg p.o. b.i.d. 4. Cetirizine 10 mg p.o. daily. 5. Mometasone 50 mcg both nares daily. 6. Nitroglycerin 0.4 mg sublingually q.5 minutes p.r.n. 7. Janumet mg one tab p.o. b.i.d. 8. Albuterol inhaler one puff inhaled b.i.d. p.r.n. 9. Aspirin 81 mg p.o. daily. 10. Atorvastatin 80 mg p.o. daily. 11. Diltiazem 30 mg p.o. b.i.d. 12. Gabapentin 300 mg p.o. b.i.d. 13. Lisinopril 2.5 mg p.o. q.a.m. 14. Magnesium oxide 400 mg p.o. daily. 15. Metoprolol succinate 25 mg p.o. daily. 16. Omeprazole 20 mg p.o. b.i.d. 17. Rivaroxaban 20 mg p.o. daily. 18. Ticagrelor 90 mg p.o. b.i.d. 19. Triamterene/hydrochlorothiazide 37.5/25 one cap p.o. daily. ALLERGIES: SHELLFISH and CONTRAST DYE. FAMILY HISTORY: Per the report, mother has hypertension and coronary artery disease. Father has diabetes and hypertension. SOCIAL HISTORY: The patient quit smoking 13 years ago. There is no report of alcohol or drug use. He lives with his girlfriend, Doreen Crowell, who is the healthcare proxy. REVIEW OF SYSTEMS: A 14-point review of systems was completed with Mr. Pratt and all those not mentioned above were negative. PHYSICAL EXAMINATION GENERAL: Mr. Pratt is lying on the stretcher in the ER. He is in no acute distress. He appears very mildly short of breath at rest. VITAL SIGNS: Temperature 97.2, pulse rate 73, respiratory rate 26, O2 saturation 96% on room air, blood pressure 133/89. LUNGS: Diminished, but no adventitious sounds are heard bilaterally. HEART: S1, S2. No murmur, rub, or gallop and regular. ABDOMEN: Protuberant, but soft and nontender with bowel sounds positive x4. EXTREMITIES: No cyanosis. Positive for 1+ pitting edema bilaterally. NEURO: He is alert, he is oriented x3. He moves all extremities equally. There is no facial asymmetry or focal weakness. Extraocular movements are intact. SKIN: Intact. DIAGNOSTIC STUDIES/LAB DATA: Sodium 132, potassium 5.1, chloride 100, serum bicarbonate 24, BUN 32, creatinine 1.59, glucose 196, lactic acid 2.1. Troponin 0.01. BNP 410. WBC 9.4, hemoglobin 8.6, hematocrit 27, platelet count 181,000. Chest x-ray is read as follows: "In the correct clinical setting, chest x-ray findings could be compatible with worsening pulmonary edema relative to the most recent chest x-ray acquired 05/21/17." The CT brain is read as follows: Normal CT of the brain. ASSESSMENT: Mr. Pratt is a 56-year-old male with a past medical history of combined diastolic-systolic congestive heart failure with EF 30% to 35%, chronic obstructive pulmonary disease, diabetes non-insulin dependent, obstructive sleep apnea, who presents today to the hospital with worsening shortness of breath and weakness. Our plans are for inpatient admission as I expect his length of stay to be greater than 2 days for the followin. Shortness of breath and weakness: I think these symptoms are all attributable to his history of chronic diastolic and systolic congestive heart failure. He has lower extremity edema and noted pulmonary edema on chest x- ray. He is only on Dyazide for diuretic outpatient. The patient has been given 40 mg Lasix IV in the ED. I will continue this for a one-time dose as well in the morning with plans to evaluate kidney function and the remainder of other labs and response before additional diuretics are ordered. The patient denies any recent increased salt intake. He just had a transesophageal echocardiogram on 05/28/17. His troponins are normal. He will have I's and O' s monitored closely and daily weights. He will have a low-salt diet. 2. Type 2 diabetes: Plan to hold his Janumet and continue with blood glucoses q.a.c. with lispro sliding scale. 3. Hypertension: Plan to continue metoprolol, lisinopril, diltiazem as tolerated, as well as Dyazide. 4. History of coronary artery disease: Continue Brilinta. 5. Atrial fibrillation: Continue Xarelto and diltiazem and metoprolol. 6. Hyperlipidemia: Continue atorvastatin. 7. Chronic obstructive pulmonary disease: The patient will resume home Symbicort at discharge. 8. Code status is full code. TIME SPENT: Approximately 60 minutes were spent in the admission of this patient, more than half of the time was spent with the patient at the bedside reviewing the events leading up to this hospitalization, performing the physical examination, and reviewing the plan of care. AILEEN DUNN NP [id number]/CPS #: [id number] ALBINO
[2017-06-01] MEDS: Ticagrelor* 90 MG TAB PO SCH (21:58)
[2017-06-01] MEDS: Gabapentin CAP(*) 300 MG PO SCH (21:58)
[2017-06-01] MEDS: Omeprazole CAP* 20 MG PO SCH (21:58)
[2017-06-01] MEDS: Diltiazem TAB* 30 MG PO SCH (21:59)
[2017-06-01] MEDS ORDERED: Morphine VIAL* 4 MG/ML VIAL (1 ml vial) IV PRN (23:51)
[2017-06-02 05:52] LABS: ABS Basophils 0.1 10^3/ul (0-0.2); ABS Eosinophils 0.1 10^3/ul (0-0.6); ABS Lymphocytes 1.5 10^3/ul (1.0-4.8); ABS Monocytes 0.5 10^3/ul (0-0.8); ABS Neutrophils 5.6 10^3/ul (1.5-7.7); ABS Nucleated RBC 0 10^3/ul; Eosinophil % 1.6 % (0-6); Hematocrit 24 % (42-52); Hemoglobin 7.8 g/dl (14.0-18.0); Lymphocyte % 18.7 % (25-47); Mean Corpuscular HGB Conc 32 g/dl (31-36); Mean Corpuscular Hemoglobin 23 pg (27-31); Mean Corpuscular Volume 71 fL (80-94); Mean Platelet Volume 8.2 um3 (7.4-10.4); Nucleated Red Blood Cells % 0; Platelet Count 172 10^3/ul (150-450); Red Blood Count 3.42 10^6/ul (4.0-5.4); Red Cell Distribution Width 17 % (10.5-15); White Blood Count 7.8 10^3/ul (3.5-10.8)
[2017-06-02 06:05] LABS: EGFR Non-African American 42.8 (>60)
[2017-06-02] MEDS: Insulin LISPRO* 1 UNITS UNIT SUBCUT SCH ×3 (08:49→17:28)
[2017-06-02] MEDS: Lisinopril TAB* 5 MG PO SCH (08:50)
[2017-06-02] MEDS: Diltiazem TAB* 30 MG PO SCH ×2 (08:50→19:58)
[2017-06-02] MEDS: Ticagrelor* 90 MG TAB PO SCH ×2 (08:50→19:59)
[2017-06-02] MEDS: Gabapentin CAP(*) 300 MG PO SCH ×2 (08:50→19:58)
[2017-06-02] MEDS: Atorvastatin* 80 MG TAB PO SCH (08:50)
[2017-06-02] MEDS: Metoprolol Succinate XL TAB* 25 MG PO SCH (08:51)
[2017-06-02] MEDS: Aspirin EC TAB* 81 MG TAB.EC PO SCH (08:51)
[2017-06-02] MEDS: Magnesium Oxide TAB* 400 MG PO SCH (08:51)
[2017-06-02] MEDS: Omeprazole CAP* 20 MG PO SCH ×2 (08:51→19:59)
[2017-06-02] MEDS ORDERED: Furosemide IV* 10 MG/ML VIAL (40 MG) IV ONE (09:00)
[2017-06-02] MEDS ORDERED: Triamterene/HCTZ 37.5-25 MG* CAP PO SCH (09:00)
--- NOTE | 2017-06-02 16:06 | PN ---
Subjective Date of Service: 06/02/17 Interval History: No change from yesterday SOB walking to the bathroom No chest pain Urinating frequently and collecting in urinal Feels thirsty and is drinking more water - has 3 cups next to bed Objective Active Medications: Albuterol (Ventolin Hfa Inhaler*) 1 puff INH BID PRN PRN Reason: WHEEZING Aspirin (Aspirin Ec Tab*) 81 mg PO DAILY [facility] Last Admin: 06/02/17 08:51 Dose: 81 mg Atorvastatin Calcium (Lipitor*) 80 mg PO DAILY [facility] Last Admin: 06/02/17 08:50 Dose: 80 mg Dextrose (D50w Syringe 50 Ml*) 12.5 gm IV PUSH .FOR FS < 60 - SS PRN PRN Reason: FS < 60 Diltiazem HCl (Cardizem Tab*) 30 mg PO BID [facility] Last Admin: 06/02/17 08:50 Dose: 30 mg Furosemide (Lasix Iv*) 40 mg IV SLOW PU DAILY [facility] Gabapentin (Neurontin Cap(*)) 300 mg PO BID [facility] Last Admin: 06/02/17 08:50 Dose: 300 mg Insulin Human Lispro (Humalog*) 0 units SUBCUT AC [facility] PRN Reason: Protocol Last Admin: 06/02/17 12:22 Dose: 6 unit Lisinopril (Prinivil Tab*) 2.5 mg PO QAM [facility] Last Admin: 06/02/17 08:50 Dose: 2.5 mg Magnesium Oxide (Magox 400 Tab*) 400 mg PO DAILY [facility] Last Admin: 06/02/17 08:51 Dose: 400 mg Metoprolol Succinate (Toprol Xl Tab*) 25 mg PO DAILY [facility] Last Admin: 06/02/17 08:51 Dose: 25 mg Morphine Sulfate (Morphine Vial*) 2 mg IV Q4H PRN PRN Reason: PAIN - MILD Last Admin: 06/01/17 23:58 Dose: 2 mg Omeprazole (Prilosec Cap*) 20 mg PO BID [facility] Last Admin: 06/02/17 08:51 Dose: 20 mg Rivaroxaban (Xarelto(*)) 20 mg PO DAILY@1700 [facility] Ticagrelor (Brilinta*) 90 mg PO BID [facility] Last Admin: 06/02/17 08:50 Dose: 90 mg Triamterene (Dyrenium Cap*) 50 mg PO DAILY [facility] Vital Signs - 8 hr 06/02/17 06/02/17 06/02/17 08:50 11:38 15:02 Temperature 97.3 F 97.7 F Pulse Rate 63 63 Respiratory 16 24 16 Rate Blood Pressure 121/58 138/73 (mmHg) O2 Sat by Pulse 100 100 Oximetry Oxygen Devices in Use Now: None Appearance: NAD Eyes: No Scleral Icterus, PERRLA Ears/Nose/Mouth/Throat: NL Teeth, Lips, Gums, Clear Oropharnyx Neck: NL Appearance and Movements; NL JVP, Trachea Midline Respiratory: Symmetrical Chest Expansion and Respiratory Effort, - - rales b/l up 02/18 Cardiovascular: RRR Abdominal: No Hepatosplenomegaly, - - abdominal distention, nttp, +bs Lymphatic: No Cervical Adenopathy Extremities: - - 2+ le edema to above knees Neurological: Alert and Oriented x 3 Result Diagrams: 06/02/17 05:25 06/02/17 05:25 Assess/Plan/Problems-Billing Assessment: 56 yo m sCHF (ef 30%) recent cardioversion 05/28, epistaxis requiring blood and discontinuation of CPAP for ETHAN, CAD, CKD, DM2, COPD, afib p/w gradual worsening SOB thought to represent acute combined chf exacerbation - Patient Problems (1) Acute exacerbation of CHF (congestive heart failure) Comment: diastolic/systolic - Anemia may also be contributing to SOB. Additionally exam c/w ascites which may require para depending on improvement with diuresis not previously on loop diuretic lasix 40IV daily strict I/O, daily weights Fluid restrict 1500cc/day monitor kideny function and lytes (2) CKD (chronic kidney disease) Comment: trend with increased diuresis (3) Hypertension Comment: stop HCTZ. Increased triamterence from 37.5 to 50mg because it isnot available in 37.5 outside of the combination with HCTZ c/w metoprolol and lisinopril (4) Afib Comment: metoprolol xarelto. If any decline in GFR will need to transition to eliquis or coumadin (5) Diabetes Comment: ISS (6) DVT prophylaxis Comment: xarelto
[2017-06-02] MEDS: Rivaroxaban TAB(*) 20 MG TAB PO SCH (16:27)
[2017-06-02] MEDS: Furosemide IV* 10 MG/ML VIAL (40 MG) IV SLOW PU SCH (16:27)
[2017-06-02] MEDS ORDERED: Acetaminophen TAB* 325 MG PO PRN (17:34)
[2017-06-03 05:02] LABS: ABS Basophils 0.1 10^3/ul (0-0.2); ABS Eosinophils 0.1 10^3/ul (0-0.6); ABS Lymphocytes 1.6 10^3/ul (1.0-4.8); ABS Monocytes 0.6 10^3/ul (0-0.8); ABS Neutrophils 4.6 10^3/ul (1.5-7.7); ABS Nucleated RBC 0 10^3/ul; Hematocrit 25 % (42-52); Lymphocyte % 22.9 % (25-47); Mean Corpuscular HGB Conc 32 g/dl (31-36); Mean Corpuscular Hemoglobin 23 pg (27-31); Mean Corpuscular Volume 71 fL (80-94); Mean Platelet Volume 7.9 um3 (7.4-10.4); Nucleated Red Blood Cells % 0; Platelet Count 179 10^3/ul (150-450); Red Blood Count 3.48 10^6/ul (4.0-5.4); Red Cell Distribution Width 17 % (10.5-15)
[2017-06-03 05:19] LABS: EGFR Non-African American 45.3 (>60)
[2017-06-03] MEDS: Metoprolol Succinate XL TAB* 25 MG PO SCH (08:11)
[2017-06-03] MEDS: TRIAMTERENE 50 MG PO SCH (08:11)
[2017-06-03] MEDS: Omeprazole CAP* 20 MG PO SCH ×2 (08:12→20:24)
[2017-06-03] MEDS: Magnesium Oxide TAB* 400 MG PO SCH (08:12)
[2017-06-03] MEDS: Aspirin EC TAB* 81 MG TAB.EC PO SCH (08:12)
[2017-06-03] MEDS: Gabapentin CAP(*) 300 MG PO SCH ×2 (08:12→20:24)
[2017-06-03] MEDS: Ticagrelor* 90 MG TAB PO SCH ×2 (08:12→20:24)
[2017-06-03] MEDS: Furosemide IV* 10 MG/ML VIAL (40 MG) IV SLOW PU SCH (08:12)
[2017-06-03] MEDS: Atorvastatin* 80 MG TAB PO SCH (08:12)
[2017-06-03] MEDS: Diltiazem TAB* 30 MG PO SCH ×2 (08:12→20:24)
[2017-06-03] MEDS: Lisinopril TAB* 5 MG PO SCH (08:12)
[2017-06-03] MEDS: Insulin LISPRO* 1 UNITS UNIT SUBCUT SCH ×4 (08:13→17:27)
[2017-06-03] MEDS ORDERED: Magnesium Sulf 4 GM/100 ML IV* 4,000 MG/100 ML BAG IVPB ONE (08:47)
[2017-06-03] MEDS ORDERED: Insulin LISPRO* 1 UNITS UNIT SUBCUT SCH (17:11)
--- NOTE | 2017-06-03 17:11 | PN ---
Subjective Date of Service: 06/03/17 Interval History: Feels like breathing improved. No longer SOb walking to bathroom. SOB when lying flat. Still requires O2. Feels belly is decreased in size Objective Active Medications: Acetaminophen (Tylenol Tab*) 650 mg PO Q6H PRN PRN Reason: PAIN Last Admin: 06/02/17 17:40 Dose: 650 mg Albuterol (Ventolin Hfa Inhaler*) 1 puff INH BID PRN PRN Reason: WHEEZING Aspirin (Aspirin Ec Tab*) 81 mg PO DAILY [facility] Last Admin: 06/03/17 08:12 Dose: 81 mg Atorvastatin Calcium (Lipitor*) 80 mg PO DAILY [facility] Last Admin: 06/03/17 08:12 Dose: 80 mg Dextrose (D50w Syringe 50 Ml*) 12.5 gm IV PUSH .FOR FS < 60 - SS PRN PRN Reason: FS < 60 Diltiazem HCl (Cardizem Tab*) 30 mg PO BID [facility] Last Admin: 06/03/17 08:12 Dose: 30 mg Furosemide (Lasix Iv*) 40 mg IV SLOW PU DAILY [facility] Last Admin: 06/03/17 08:12 Dose: 40 mg Gabapentin (Neurontin Cap(*)) 300 mg PO BID [facility] Last Admin: 06/03/17 08:12 Dose: 300 mg Insulin Human Lispro (Humalog*) 0 units SUBCUT AC [facility] PRN Reason: Protocol Last Admin: 06/03/17 12:20 Dose: 8 unit Lisinopril (Prinivil Tab*) 2.5 mg PO QAM [facility] Last Admin: 06/03/17 08:12 Dose: 2.5 mg Magnesium Oxide (Magox 400 Tab*) 400 mg PO DAILY [facility] Last Admin: 06/03/17 08:12 Dose: 400 mg Metoprolol Succinate (Toprol Xl Tab*) 25 mg PO DAILY [facility] Last Admin: 06/03/17 08:11 Dose: 25 mg Morphine Sulfate (Morphine Vial*) 2 mg IV Q4H PRN PRN Reason: PAIN - MILD Last Admin: 06/01/17 23:58 Dose: 2 mg Omeprazole (Prilosec Cap*) 20 mg PO BID [facility] Last Admin: 06/03/17 08:12 Dose: 20 mg Rivaroxaban (Xarelto(*)) 20 mg PO DAILY@1700 [facility] Last Admin: 06/02/17 16:27 Dose: 20 mg Ticagrelor (Brilinta*) 90 mg PO BID [facility] Last Admin: 06/03/17 08:12 Dose: 90 mg Triamterene (Dyrenium Cap*) 50 mg PO DAILY [facility] Last Admin: 06/03/17 08:11 Dose: 50 mg Vital Signs - 8 hr 06/03/17 06/03/17 10:58 15:28 Temperature 97.8 F 97.3 F Pulse Rate 62 71 Respiratory 18 16 Rate Blood Pressure 104/67 142/79 (mmHg) O2 Sat by Pulse 100 99 Oximetry Oxygen Devices in Use Now: Nasal Cannula Appearance: NAD Eyes: No Scleral Icterus, PERRLA Ears/Nose/Mouth/Throat: Clear Oropharnyx, Mucous Membranes Moist Neck: NL Appearance and Movements; NL JVP, Trachea Midline Respiratory: Symmetrical Chest Expansion and Respiratory Effort, - - rales b/; bases only Cardiovascular: RRR Abdominal: NL Sounds; No Tenderness; No Distention, No Hepatosplenomegaly Lymphatic: No Cervical Adenopathy Extremities: - - 1+ LE edema Neurological: Alert and Oriented x 3 Result Diagrams: 06/03/17 04:44 06/03/17 04:44 Assess/Plan/Problems-Billing Assessment: 56 yo m sCHF (ef 30%) recent cardioversion 05/28, epistaxis requiring blood and discontinuation of CPAP for ETHAN, CAD, CKD, DM2, COPD, afib p/w gradual worsening SOB thought to represent acute combined chf exacerbation - Patient Problems (1) Acute exacerbation of CHF (congestive heart failure) Comment: diastolic/systolic Improving with diuresis. I do not think he will need a paracentesis. He may benefit from a blood transfusion if H/H drops but would wait until fully diuresed not previously on loop diuretic c/w lasix 40IV daily strict I/O, daily weights Fluid restrict 1500cc/day monitor kidney function and lytes (2) CKD (chronic kidney disease) Comment: trend with increased diuresis (3) Hypertension Comment: stop HCTZ. Increased triamterence from 37.5 to 50mg because it isnot available in 37.5 outside of the combination with HCTZ c/w metoprolol and lisinopril (4) Afib Comment: metoprolol xarelto. If any decline in GFR will need to transition to eliquis or coumadin (5) Diabetes Comment: ISS increased from medium to high dose 06/03 added lantus 5 units 06/03 (6) DVT prophylaxis Comment: suellen
[2017-06-03] MEDS: Rivaroxaban TAB(*) 20 MG TAB PO SCH (17:26)
[2017-06-03] MEDS ORDERED: Insulin GLARGINE(*) 1 UNITS UNIT SUBCUT SCH (21:00)
[2017-06-04 05:08] LABS: ABS Basophils 0.1 10^3/ul (0-0.2); ABS Eosinophils 0.1 10^3/ul (0-0.6); ABS Lymphocytes 1.5 10^3/ul (1.0-4.8); ABS Monocytes 0.7 10^3/ul (0-0.8); ABS Neutrophils 5.4 10^3/ul (1.5-7.7); ABS Nucleated RBC 0 10^3/ul; Eosinophil % 1.8 % (0-6); Hematocrit 25 % (42-52); Hemoglobin 7.9 g/dl (14.0-18.0); Lymphocyte % 19.5 % (25-47); Mean Corpuscular HGB Conc 32 g/dl (31-36); Mean Corpuscular Hemoglobin 23 pg (27-31); Mean Corpuscular Volume 72 fL (80-94); Mean Platelet Volume 8.1 um3 (7.4-10.4); Nucleated Red Blood Cells % 0; Platelet Count 190 10^3/ul (150-450); Red Blood Count 3.48 10^6/ul (4.0-5.4); Red Cell Distribution Width 17 % (10.5-15); White Blood Count 7.9 10^3/ul (3.5-10.8)
[2017-06-04 05:19] LABS: EGFR Non-African American 45.6 (>60)
[2017-06-04] MEDS: Furosemide IV* 10 MG/ML VIAL (40 MG) IV SLOW PU SCH (09:36)
[2017-06-04] MEDS: Insulin LISPRO* 1 UNITS UNIT SUBCUT SCH ×2 (09:37→13:06)
[2017-06-04] MEDS: Omeprazole CAP* 20 MG PO SCH (09:38)
[2017-06-04] MEDS: Atorvastatin* 80 MG TAB PO SCH (09:38)
[2017-06-04] MEDS: TRIAMTERENE 50 MG PO SCH (09:38)
[2017-06-04] MEDS: Gabapentin CAP(*) 300 MG PO SCH (09:38)
[2017-06-04] MEDS: Magnesium Oxide TAB* 400 MG PO SCH (09:38)
[2017-06-04] MEDS: Ticagrelor* 90 MG TAB PO SCH (09:39)
[2017-06-04] MEDS: Diltiazem TAB* 30 MG PO SCH (09:39)
[2017-06-04] MEDS: Metoprolol Succinate XL TAB* 25 MG PO SCH (09:39)
[2017-06-04] MEDS: Lisinopril TAB* 5 MG PO SCH (09:39)
[2017-06-04] MEDS: Aspirin EC TAB* 81 MG TAB.EC PO SCH (09:40)
[2017-06-04 12:22] VITALS: BP 119/70
--- NOTE | 2017-06-04 23:16 | DS ---
CC: Anita Knight NP * DISCHARGE SUMMARY: DATE OF ADMISSION: 06/01/17 DATE OF DISCHARGE: 06/04/17 PRIMARY CARE PROVIDER: Anita Knight NP PRIMARY DIAGNOSES: 1. Acute systolic congestive heart failure exacerbation. 2. Hypoxic respiratory failure. SECONDARY DIAGNOSES: Include: 1. Type 2 diabetes. 2. Chronic kidney insufficiency. 3. Anemia. 4. History of coronary artery disease, last PCI in 2015. 5. Chronic obstructive pulmonary disease. 6. Atrial fibrillation. 7. Obstructive sleep apnea, on CPAP, currently on hold in the setting of recent epistaxis. MEDICATIONS ON DISCHARGE: 1. Brilinta 90 mg twice daily. 2. Janumet mg twice daily. 3. Rivaroxaban 20 mg daily. 4. Omeprazole 20 mg twice daily. 5. Nitroglycerin 0.4 mg every 5 minutes as needed for chest pain. 6. Nasonex 50 mcg to both nares daily. 7. Metoprolol succinate 25 mg daily. 8. Magnesium oxide 400 mg daily. 9. Lisinopril 2.5 mg daily. 10. Gabapentin 300 mg daily. 11. Diltiazem 30 mg twice daily. 12. Cetirizine 10 mg daily. 13. Symbicort 2 puffs twice daily. 14. Atorvastatin 80 mg in the evening. 15. Aspirin 81 mg daily. 16. Albuterol 1 puff twice daily as needed. 17. Acetaminophen 500 mg twice daily. 18. Triamterene 500 mg daily. 19. Lasix 20 mg daily. Please note triamterene and hydrochlorothiazide were and triamterene was increased and hydrochlorothiazide was discontinued. Additionally, please note the addition of Lasix as a loop diuretic to his home medication regimen. HISTORY OF PRESENT ILLNESS AND HOSPITAL COURSE: This is a 56-year-old man with a past medical history as outlined in the history of present illness on the day of admission and including combined diastolic/systolic congestive heart failure , with known CAD, last PCI in 2015, as well as anemia secondary to epistaxis, who presented to the hospital with shortness of breath, found with increased pulmonary vascular congestion, shortness of breath, and hypoxic respiratory failure thought secondary to acute decompensated heart failure exacerbation. He was started on Lasix 40 mg IV daily with brisk diuresis between 2 and 3 L negative daily, with decrease in his dry weight on discharge at 79.7 kilograms. His lower extremities reduced from 2+ pitting edema to trace or no pitting edema. He had rhonchorous lungs on admission that were clear on discharge. He was weaned from oxygen, was able to ambulate around the unit without difficulty , whereas on presentation he was short of breath walking to the bathroom. I will be continuing him on a home loop diuretic on discharge. I discussed water and salt intake on discharge. There were no complications during the course of the hospital stay. DISCHARGE INSTRUCTIONS: At followup please; 1. Follow patient's weight, encourage low-salt diet and adherence to medication regimen. Adjust loop diuretic as necessary. 2. Can consider BMP to monitor for a stable kidney function, as well as magnesium and potassium. Magnesium and potassium did not need to be repleted during the course of the hospital stay on IV Lasix. Consider increasing Lasix as necessary. 3. As noted in the medication reconciliation, the patient is on triple anticoagulation therapy with Xarelto, Brilinta, and aspirin. Can consider discontinuation of Brilinta 2 years out from his last percutaneous intervention. The patient is certainly at an increased risk for bleeding, has recently had epistaxis and resultant anemia. 4. No other specific labs or vitals that need followup. Reason for return to the hospital include, but not limited to, recurrent or worsening symptoms, including increased shortness of breath, chest pain, bleeding from any source, lightheadedness, loss of consciousness, nausea, vomiting, inability to obtain or tolerate medications were discussed with the patient. He acknowledged understanding. TIME SPENT: Greater than 60 minutes were spent on discharging this patient, greater than half was spent [id number] with the patient. [id number]/[facility] #: [id number] [facility]
== END 2017-06-04 15:35 | disposition home or self-care (01) | DRG 291 ==
LOC: ED 14:45 → MEDTELE 18:25
PROVIDERS: ADMIT Internal Medicine; ATTEND Internal Medicine
DX: I13.0 Hypertensive heart and chronic kidney disease with heart failure and stage 1 through stage 4 chronic kidney disease, or unspecified chronic kidney disease (principal); J96.91 Respiratory failure, unspecified with hypoxia; I50.43 Acute on chronic combined systolic (congestive) and diastolic (congestive) heart failure; R18.8 Other ascites; E11.22 Type 2 diabetes mellitus with diabetic chronic kidney disease; N18.9 Chronic kidney disease, unspecified; I25.10 Atherosclerotic heart disease of native coronary artery without angina pectoris; J44.9 Chronic obstructive pulmonary disease, unspecified; D64.9 Anemia, unspecified; K58.2 Mixed irritable bowel syndrome; E78.5 Hyperlipidemia, unspecified; I48.91 Unspecified atrial fibrillation; G47.33 Obstructive sleep apnea (adult) (pediatric); Z79.02 Long term (current) use of antithrombotics/antiplatelets; Z79.82 Long term (current) use of aspirin; Z95.5 Presence of coronary angioplasty implant and graft; Z79.84 Long term (current) use of oral hypoglycemic drugs; Z79.01 Long term (current) use of anticoagulants; Z95.0 Presence of cardiac pacemaker; Z87.442 Personal history of urinary calculi; Z91.041 Radiographic dye allergy status; Z91.013 Allergy to seafood; Z82.49 Family history of ischemic heart disease and other diseases of the circulatory system; Z83.3 Family history of diabetes mellitus; Z87.891 Personal history of nicotine dependence
CPT/HCPCS: 36415; 70450; 71045; 80048; 80053; 82140; 83605; 83735; 83880; 84484; 85025; 93005; 99284; A9270-GY; J1940; J2270; J3475

== ENCOUNTER 2017-07-17 17:48 | Observation (INO) | payer MEDICARE, MEDICAID ==
--- OUTSIDE RECORDS SUMMARY | 2017-07-17 18:08 | XMS REPORT ---
:1960 External Reference #:[id number] Author Organization [facility] Address [address] [address] Phone [phone] Care Team Providers Name Role Phone Erasmo Hill MD Primary Care Physician Unavailable Payers Type Date Identification Numbers Payment Provider Subscriber Medicare Primary Effective: Policy Number: Medicare Fer Pratt 2007 [id number] PayID: [id number] [address] [place] [address] Medigap Part B Policy Number: [id number] Medicaid Fer Pratt PayID: [id number] [address] [place] [address] Problems Date Description Provider Status Onset: 06/04/2011 Chest pain Jordan Rojas M.D. Onset: 06/04/2011 Electrocardiogram abnormal Jordan Rojas M.D. Onset: 06/04/2011 Benign essential hypertension Jordan Rojas M.D. Onset: 06/04/2011 Hyperlipidemia Jordan Rojas M.D. Onset: 06/04/2011 Automatic implantable cardiac Jordan Rojas defibrillator in situ Etelvina Onset: 07/11/2011 Coronary arteriosclerosis [place] [facility] Schedule Active Onset: 07/11/2011 Chronic ischemic heart disease [facility] Schedule Active Onset: 05/26/2012 Tachycardia Jordan [...] apnea syndrome Macey Cespedes DNP, RN, Active [employer] Onset: 07/19/2016 Hypersomnia Macey Cespedes DNP, RN, Active [employer] Onset: 11/01/2016 Epistaxis Macey Cespedes DNP, RN, Active [employer] Family History Date Family Member(s) Problem(s) Comments [...] day Exercise Type/Frequency Exercises regularly Works at [employer] Hx Text Allergies, Adverse Reactions, Alerts Date Description Reaction Status Severity Comments 06/14/2009 contrast dye Urticaria active 08/30/2016 Shellfish Urticaria active Medications Medication Date Status Form Strength Qnty SIG Indications Ordering Provider Brilinta 06/04/ Active Tablets 90mg 1 tab by Unknown 2018 mouth twice a day Nitroglycerin 05/04/ Active Tablets Sub 0.4mg 1 sl Unknown 2017 q5mins x3 as needed for chest pain Xarelto 02/21/ Active Tablets 20mg 30tab 1 by mouth I48.91 Qutaradha 2018 s every day S. 05/14/17 Monserrat sanchez M.D. Magnesium Oxide 07/22/ Active Tablets 400mg 60tab 1 by mouth Jeniestaradha 2017 s every day Jess German M.D. Metoprolol 07/05/ Active Tablets ER 25mg 90tab 1 by mouth I42.9 Bhargavi S. Succinate ER 2017 24HR s every day Aguilar N.PLina Tylenol 02/03/ Active Tablets 500mg 100ta two qd prn Timmy 2007 oswaldo German M.D. Nasonex 02/03/ Active Suspension 50mcg/Act 1Mon 1 Trimble Timmy 2007 Jon Each S. Side qd Etelvina German Albuterol / Active Aerosol 90mcg/Act 1 po bid Unknown 0000 prn Diltiazem HCL / Active Tablets 30mg 180ta 1 by mouth Bhargavi S. 0000 bs twice a , day N.P. Nitrostat / Active Tablets Sub 0.4mg 25tab [...] DR 20mg 1 by mouth Unknown 0000 twice daily Gabapentin / Active Capsules 300mg 1 by mouth Unknown 0000 once daily Lisinopril / Active Tablets 2.5mg 90tab 1 by mouth Bhargavi S. 0000 s every day Aguilar, N.P. Triamterene/Hyd / Active Capsules 37.5-25mg 90cap 1 tablet Bhargavi Mercado rochlorothiazid 0000 s by mouth Aguilar, e daily N.P. Atorvastatin / Active Tablets 80mg 90tab take one Qutaybeh Calcium 0000 s tablet by S. mouth Monserrat every day Etelvina Furosemide / Active Tablets 20mg 1 by mouth Unknown 0000 every day Aspirin / Active Tablets DR 81mg 1 by mouth Unknown 0000 every day Magnesium 07/22/ Hx Solution 2GM/50ML 2gms 2 gms IV Qutaybeh Sulfate 2017 - over 3 S. 09/08/ hours Monserrat Orta M.D. Aspirin 07/10/ Hx Tablets 81mg 1 by mouth Qutaybeh 2017 - every day S. 05/14/ / [facility] 2018 Etelvina [place] Metformin HCL 12/03/ Hx Tablets ? 60tab 1 by mouth Qutaybeh 2016 - s daily S. 12/04/ [facility] 2015 , Etelvina Magnesium 10/31/ Hx Solution 2GM/50ML 1unit 2 gm Arnulfo Sulfate 2016 - s infusion F. 11/08/ over 1 Allie, 2016 hour x 1 M.DLina dose Magnesium Oxide 10/31/ Hx Tablets 400mg 30tab 1 by mouth Qutaybeh 2015 - s bid S. 07/10/ (Unsure If [facility] 2016 Tak[facility]) , Etelvina Metoprolol 07/16/ Hx Tablets 100mg 60tab 1 po bid Qutaybeh Tartrate 2012 - s (taken S. 06/19/ with 25 mg [facility] 2016 tabs) Etelvina Metoprolol 07/16/ Hx Tablets 25mg 60tab 1 po bid Qutaybeh Tartrate 2012 - s (with S. 10/16/ 100mg to [facility] 2012 equal , M.D. 125mg bid) Cardizem 05/26/ Hx Tablets 30mg 180ta 1 by mouth Qutaybeh 2012 - bs twice S. 12/31/ daily [facility] 2015 Etelvina Lisinopril 04/25/ Hx Tablets 5mg 30tab 1/2 po qd Qutaybeh 2009 - s (decreased S. 07/09/ /03/04) [facility] Orta Metoprolol 04/25/ Hx Tablets 100mg 60tab 1 po bid Qutaybeh Tartrate 2009 - s S. 07/16/ [facility] 2012 Etelvina Metformin HCL 03/31/ Hx Tablets 1000mg 1 po bid Qutaybeh 2008 - S. 12/18/ nisha 2012 Et[place] Metoprolol 03/31/ Hx Tablets ER 50mg 90tab 1 and / Qutaybeh 2008 - 24HR s po bid S. 04/25/ nisha 2010 Et[place] Lisinopril 02/03/ Hx Tablets 5mg 30tab 1 po qd Qutaybeh 2007 - s S. 02/03/ [facility] 2008 , Et[place] Metoprolol 02/03/ Hx Tablets ER 50mg two qd Qutaybeh 2007 - S. [facility] 2008 Et[place] Metformin HCL 02/03/ Hx Tablets 1000mg two qd Qutaybeh 2007 - S. 03/31/ [facility] 2008 , Et[place] Lisinopril 02/03/ Hx Tablets 2.5mg qd Qutaybeh 2007 - S. [facility] 2009 , Etelvina Prevacid 02/03/ Hx Capsules DR 30mg 90cap 1 PO qd Qutaybeh 2007 - s S. 06/19/ [facility] 2017 , [place] Glipizide XL 02/03/ Hx Tablets ER 10mg 100ta bid PO Qutaybeh 2007 - 24HR bs S. 06/19/ [facility] 2016 , [facility] Albuterol 02/03/ Hx 3unit 2 Puffs Up Qutaybeh Inhaler 2007 - s To qid prn S. [facility] 2010 Et[place] Singulair 02/03/ Hx Tablets 10mg 30tab 1 PO qd Qutaybeh 2007 - s S. 07/09/ [facility] 2016 , [facility] Lescol 02/03/ Hx Tablets ER 80mg 30tab 1 PO hs Qutaybeh 2007 - 24HR s S. 06/06/ [facility] 2010 Etelvina Lanoxin 06/16/ Hx Tablets 0.25mg 30tab 1 PO qd Qutaybeh 2007 - s S. [facility] 2016 , Et[place] Metoprolol 06/16/ Hx Tablets 50mg 110ta 1and 1/2 Qutaybeh Tartrate 2007 - bs po bid S. 2007 , Etel[facility]ian Lisinopril 06/16/ Hx Tablets 2.5mg 30tab 1 po qd Qutaybeh 2007 - s S. 2007 , [facility] Digitek / Hx Tablets 0.25mg 1 PO qd Qutaybeh 2007 - S. [facility] 2007 , Et[place] Metoprolol / Hx Tablets ER 25mg 90tab 1po bid Qutaybeh Succinate ER 2007 - 24HR s S. 06/16/ Monserrat Pereira M.D. Aspirin 04/16/ Hx Tablets 325mg 1 PO qd Qutaybeh 2007 - S. 07/10/ Monserrat Orta M.D. Glucotrol 04/16/ Hx Tablets 15mg 60tab 1 PO qd Qutaybeh 2007 - s S. 06/19/ Monserrat Orta M.D. Metformin HCL 04/16/ Hx Tablets 500mg 60tab Take 1 Qutaybeh 2007 - Tablet By S. 02/03/ Mouth qd [facility] Etelvina Pereira Plavix / Hx Tablets 75mg 1 po [...] mouth Unknown 0000 - twice a day 2016 Brilinta / Hx Tablets 90mg 180ta 1 tab by Bhargavi Mercado 0000 - bs mouth Foster, 05/14/ twice a N.P. 2017 05/06/17 Hold Triam / Hx Cream 0.1% Liz 0000 - MD Erasmo 2016 Triamcinolone / Hx Cream 0.1% apply thin Unknown Acetonide 0000 - film twice 07/10/ daily 2017 Patanol 00/ Hx Drops prn for Unknown 0000 - allergies 2016 Medications Administered in Office Medication Date Status Form Strength Qnty SIG Indications Ordering Provider Depomedrol Administered Injection Jaz 80MG 011 DAVEY Avelar Vital Signs Date Vital Result Comment 07/04/2017 Height 67 inches 5'7" Weight 188.00 lb without shoes Heart Rate 70 /min BP Systolic Sitting 130 mmHg Lue reg cuff BP Diastolic Sitting 80 mmHg Lue reg cuff BP Systolic Standing 132 mmHg Lue reg cuff BP Diastolic Standing 84 mmHg Lue reg cuff Respiratory Rate 16 /min BMI (Body Mass Index) 29.4 kg/m2 Ejection Fraction 30-35% date 02/20/17 ECHO 05/06/2017 Height 67 inches 5'7" Weight 178.00 [...] Non- 47.5 >60 Egfr 61.1 >60 12 Inr/Protime 12/18/2015 Inr 1.01 0.89-1.11 Laboratory test [...] Non- 53.9 >60 Egfr 69.4 >60 13 Basic Metabolic Panel 12/04/2015 Sodium 136 mmol/L [...] (Thyroid Stim Horm) 0.68 mcIU/mL 0.34-5.60 27 Laboratory test finding 07/08/2014 Amylase 56 U/L [...] NEGATIVE Negative Laboratory test finding 06/15/2009 Glucose Stat 271 mg/dL High 70-100 33 Laboratory test finding 06/15/2009 Glucose 269 mg/dL High 70-100 34 Laboratory test finding 06/15/2009 Glucose Stat 203 mg/dL High 70-100 35 Laboratory test finding 06/15/2009 Glucose 369 mg/dL High 70-100 36 Laboratory test finding 06/15/2009 Glucose Stat 343 mg/dL High 70-100 37 Basic Metabolic Panel [...] K:6.3 Called to IQRA Nielsen at: 16:28:49 by:[id number] Read back by:IQRA Nielsen 10 Because ethnic [...] 5 Kidney failure <15 (or dialysis) 11 Optical Dispenser: [id number] CASSIA THRASHER 12 Because ethnic data is [...] in next few days CC: PMD 28 >100 to <200 pg/mL: likely compensated [...] K:6.4 Called to RAINA HAYS at: 15:35:57 by:[id number] Read back by:RAINA HAYS 31 CALL RESULTS TO DERECK AT [id number] 32 VERBAL TO DERECK BY ALEKSANDRA at 1222 on 07/12/10. Results read back accurately. 33 Note change in reference range as of 10/08/07. The change was based on recommendations from the [employer]. 34 Note change in reference range as of 10/08/07. The change was based on recommendations from the [employer]. 35 Note change in reference range as of 10/08/07. The change was based on recommendations from the [employer]. 36 Note change in reference range as of 10/08/07. The change was based on recommendations from the [employer]. 37 Note change in reference range as of 10/08/07. The change was based on recommendations from the [employer]. 38 Anion gap measurement may be of limited value in the presence of any alkalosis, especially in a combined acid base disorder. . 39 Note change in reference range as of 10/08/07. The change was based on recommendations from the [employer]. 40 Please note change in [...] (or dialysis) 42 VERBAL TO ANAYELI BY [facility] at 1918 on 06/14/09. Results read back accurately. Note change in reference range as of 10/08/07. The change was based on recommendations from the [employer]. 43 Anion gap measurement may be of limited value in the presence of any alkalosis, especially in a combined acid base disorder. . 44 VERBAL TO ANAYELI BY [facility] at 2022 on 06/14/09. Results read back accurately. Note change in reference range as of 10/08/07. The change was based on recommendations from the [employer]. 45 Please note change in [...] (or dialysis) 47 VERBAL TO ANAYELI BY [facility] at 2023 on 06/14/09. Results read back accurately. Note change in reference range as of 10/08/07. The change was based on recommendations from the [employer]. 48 VERBAL TO SMITA BY [facility] at 2306 on 06/14/09. Results read back accurately. Note change in reference range as of 10/08/07. The change was based on recommendations from the [employer]. Procedures Date CPT Code Description Status Comment 07/04/2017 61157 EKG Tracing & Interpretation Completed 05/28/2017 81211 Moderate Sedation Services; Same Phys Intl 15 Completed Mins; PT >=5 Years 05/28/2017 96910 Color Flow Doppler/Interp & Reprt Completed 05/28/2017 59105 Pulse Wave/Continuous-Interp.RPT Completed 05/28/2017 19463 Echocardiography, Transesophageal, Real Time Completed W/Image 2D W/W/O M-M 05/07/2017 54883 Icd Eval With Inerative Adjustmt Dual Lead Completed System 05/07/2017 50981 Icd Eval With Inerative Adjustmt Dual Lead Completed System 05/06/2017 26661 EKG Tracing & Interpretation Completed 04/23/2017 91089 Treadmill Interp/Report Only Completed 04/23/2017 08348 Stress Test Supervsn W/Out I/R Completed 02/21/2017 48293 EKG Tracing & Interpretation Completed 02/21/2017 53763 Icd Eval With Inerative Adjustmt Dual Lead Completed System 02/21/2017 10007 Icd Eval With Inerative Adjustmt Dual Lead Completed System 02/21/2017 62404 Icd Eval With Inerative Adjustmt Dual Lead Completed System 02/20/2017 36660 ECHO Transthoracic, Real-Time 2D With Doppler Completed And Color Flow 02/20/2017 31543 ECHO Transthoracic, Real-Time 2D With Doppler Completed And Color Flow 12/12/2016 60625 Icd Eval With Inerative Adjustmt Dual Lead Completed System 12/12/2016 05750 Icd Eval With Inerative Adjustmt Dual Lead Completed System 12/10/2016 15208 EKG Tracing & Interpretation Completed 12/10/2016 78839 EKG Tracing & Interpretation Completed 09/25/2016 63333 Icd Eval With Inerative Adjustmt Dual Lead Completed System 09/09/2016 75790 EKG Tracing & Interpretation Completed 07/19/2016 18452 Echocardiogram, Limited Study Completed 06/28/2016 08248 Polysomnography Sleep Staging 4+ Parameters Completed 06/18/2016 04898 Icd Eval With Inerative Adjustmt Dual Lead Completed System 04/02/2016 10476 Icd Eval With Inerative Adjustmt Dual Lead Completed System 03/28/2016 76028 EKG Tracing & Interpretation Completed 03/25/2016 02026 ECHO Transthoracic, Real-Time 2D With Doppler Completed And Color Flow 02/15/2016 31229 EKG, Interpretation Only Completed 01/09/2016 30912 Icd Eval With Inerative Adjustmt Dual Lead Completed System 01/01/2016 89944 EKG Tracing & Interpretation Completed 12/28/2015 15771 EKG, Interpretation Only Completed 12/27/2015 34319 Intravascular Blood Flow Velocity Completed 12/27/2015 18171 Left Heart Cath. Incl S/I Coronaries, Angio S/I Completed V Gram If Done 12/27/2015 52256 EKG, Interpretation Only Completed 12/27/2015 27709 Percutaneous Transcatheter Placement Of Completed Intracoronary Stent 12/27/2015 44405 Percutaneous Transcatheter Placement Of Completed Intracoronary Stent 11/20/2015 19532 Echocardiogram, Limited Study Completed 10/16/2015 98801 Icd Eval With Inerative Adjustmt Dual Lead Completed System 09/25/2015 83505 Holter Monitor Review (24 hr)dr review & Completed interp only 09/21/2015 32007 ECG Monitor/Recording W/Visual Superimposition Completed Scanning 09/18/2015 93730 EKG Tracing & Interpretation Completed 07/06/2015 59303 Interrogation Device Eval In Person W/DR Completed Analysis,Single,Dual,Mul 05/29/2015 83601 ECHO Transthoracic, Real-Time 2D With Doppler Completed And Color Flow 03/28/2015 04558 Interrogation Device Eval In Person W/ Completed Analysis,Single,Dual,Mul 01/19/2015 97211 Icd Check Single,Dual Or Multiple In Person Completed W/DR Incl Heart Rhyth 12/26/2014 80623 EKG Tracing & Interpretation Completed 12/22/2014 30188 Treadmill Interp/Report Only Completed 12/22/2014 32198 Stress Test Supervsn W/Out I/R Completed 11/08/2014 31047 EKG Tracing & Interpretation Completed 10/28/2014 84666 Icd Eval With Inerative Adjustmt Dual Lead Completed System 08/04/2014 57868 ECHO Transthoracic, Real-Time 2D With Doppler Completed And Color Flow 07/27/2014 30770 Icd Check Single,Dual Or Multiple In Person Completed W/DR Incl Heart [facility] 05/02/2014 54209 Treadmill Interp/Report Only Completed 05/02/2014 32754 Stress Test Supervsn W/Out I/R Completed 05/02/2014 23279 EKG, Interpretation Only Completed 05/01/2014 68144 EKG, Interpretation Only Completed 04/18/2014 00925 Icd Eval With Inerative Adjustmt Dual Lead Completed System 04/11/2014 30803 EKG Tracing & Interpretation Completed 04/06/2014 62531 EKG, Interpretation Only Completed 02/03/2014 89078 Icd Eval With Iterative Adjustmt Multiple Lead Completed System 10/29/2013 83294 Icd Check Single,Dual Or Multiple In Person Completed W/ Incl Heart Rhyth 09/29/2013 24288 Stress Test Supervsn W/Out I/R Completed 09/29/2013 36470 Treadmill Interp/Report Only Completed 09/23/2013 08037 Treadmill Interp/Report Only Completed 09/23/2013 59723 Stress Test Supervsn W/Out I/R Completed 08/04/2013 83940 ECHO Transthoracic, Real-Time 2D With Doppler Completed And Color Flow 07/27/2013 44611 Icd Check Single,Dual Or Multiple In Person Completed W/ Incl Heart Rhyth 07/26/2013 78254 EKG Tracing & Interpretation Completed 05/25/2013 10476 Icd Check Single,Dual Or Multiple In Person Completed W/ Incl Heart Rhyth 01/26/2013 62174 Icd Check Single,Dual Or Multiple In Person Completed W/ Incl Heart Rhyth 12/24/2012 42169 Treadmill Interp/Report Only Completed 12/24/2012 76734 Stress Test Supervsn W/Out I/R Completed 12/08/2012 94879 ECHO Transthoracic, Real-Time 2D With Doppler Completed And Color Flow 11/24/2012 50804 EKG Tracing & Interpretation Completed 11/03/2012 61040 Icd Check Single,Dual Or Multiple In Person Completed W/DR Incl Heart Rhyth 09/03/2012 12296 Xray Knee 3 Views Completed 09/03/2012 37345 Rad Exam; Knee, Ap&L Completed 07/30/2012 48982 EKG Tracing & Interpretation Completed 07/07/2012 05363 Holter Monitoring 24 HR New Completed 06/25/2012 87991 Icd Check Single,Dual Or Multiple In Person Completed W/DR Incl Heart Rhyth 06/09/2012 70111 EKG Tracing & Interpretation Completed 05/28/2012 02335 ECHO Transthorasic Realtime 2D W Doppler & Completed Color Flow Hosp 05/28/2012 41982 Pulse Wave/Continuous-Interp.RPT Completed 05/28/2012 86125 Color Flow Doppler/Interp & Reprt Completed 05/26/2012 29309 EKG Tracing & Interpretation Completed 04/02/2012 92256 Icd Check Single,Dual Or Multiple In Person Completed W/DR Incl Heart Rhyth 11/21/2011 59099 Icd Check Single,Dual Or Multiple In Person Completed W/DR Incl Heart Rhyth 07/11/2011 93770 ECHO Transthoracic, Real-Time 2D With Doppler Completed And Color Flow 06/20/2011 26790 Icd Check Single,Dual Or Multiple In Person Completed W/DR Incl Heart Rhyth 06/04/2011 07155 EKG Tracing & Interpretation Completed 02/28/2011 42764 Icd Check Single,Dual Or Multiple In Person Completed W/DR Incl Heart Rhyth 01/17/2011 28950 Inject/Drain Joint/Bursa Major Completed 01/17/2011 06284 Rad Exam; Knee, Ap&L Completed 01/17/2011 47386 Xray Knee 3 Views Completed R 12/26/2010 47580 Icd Check Single,Dual Or Multiple In Person Completed W/DR Incl Heart Rhyth 10/03/2010 90715 Icd Check Single,Dual Or Multiple In Person Completed W/DR Incl Heart Rhyth 07/12/2010 74526 Treadmill Interp/Report Only Completed 07/12/2010 78453 Stress Test Supervsn W/Out I/R Completed 07/04/2010 20243 ECHO Transthoracic, Real-Time 2D With Doppler Completed And Color Flow 06/12/2010 16253 Icd Check Single,Dual Or Multiple In Person Completed W/ Incl Heart [facility] 06/06/2010 89999 EKG Tracing & Interpretation Completed 03/15/2010 92660 Icd Check Single,Dual Or Multiple In Person Completed W/ Incl Heart [facility] 01/05/2010 89807 Icd Check Single,Dual Or Multiple In Person Completed W/ Incl Heart [facility] 10/18/2009 80510 EKG Tracing & Interpretation Completed 10/12/2009 16678 Icd Eval With Inerative Adjustmt Dual Lead Completed System 08/10/2009 43411 Icd Check Single,Dual Or Multiple In Person Completed W/ Incl Heart [facility] 07/10/2009 10959 ECHO Transthoracic, Real-Time 2D With Doppler Completed And Color Flow 06/21/2009 19814 EKG Tracing & Interpretation Completed 06/14/2009 19919 Selective Coronary Angioplasty Completed 06/14/2009 00077 S/I/R Inj Proc Vent And Or Atrial Completed 06/14/2009 16256 Coronary Angiography Completed 06/14/2009 32825 Inj Proc LFT Vent/LFT Atrl Angio Completed 06/14/2009 68749 Left Heart Catheterization Completed 06/08/2009 14071 Icd Check Single,Dual Or Multiple In Person Completed W/ Incl Heart [facility] 06/07/2009 29738 EKG Tracing & Interpretation Completed 05/16/2009 08475 Treadmill Interp/Report Only Completed 05/16/2009 07145 Stress Test Supervsn W/Out I/R Completed 04/25/2009 56148 EKG Tracing & Interpretation Completed 03/16/2009 21602 Icd Check Remote Up To 90 Days Completed Single,Dual,Multiple Lead 12/08/2008 71825 Icd Check Single,Dual Or Multiple In Person Completed W/ Incl Heart [facility] 12/01/2008 61368 EKG, Interpretation Only Completed 12/01/2008 06242 EKG Tracing & Interpretation Completed 11/10/2008 36647 ECHO Transthoracic, Real-Time 2D With Doppler Completed And Color Flow 09/08/2008 44093 Icd Check Single,Dual Or Multiple In Person Completed W/ Incl Heart [facility] 07/05/2008 06858 EKG Tracing & Interpretation Completed 06/09/2008 45117 Icd Check Single,Dual Or Multiple In Person Completed W/DR Incl Heart Rhyth 03/31/2008 64679 EKG Tracing & Interpretation Completed 03/18/2008 63660 Color Doppler Completed 03/18/2008 88599 Pulse Doppler & Continuous Wave Completed 03/18/2008 00239 Echocardiogram Completed 03/18/2008 33405 ECHO Transthoracic, Real-Time 2D With Doppler Completed And Color Flow 03/17/2008 77213 Icd Check Single,Dual Or Multiple In Person Completed W/DR Incl Heart Rhyth 03/10/2008 52273 EKG Tracing & Interpretation Completed 03/10/2008 70394 EKG Tracing & Interpretation Completed 03/10/2008 09641 EKG Tracing & Interpretation Completed 02/04/2008 97464 Analysis Aicd DC W/Out Reprogramg Completed 11/25/2007 49400 EKG Tracing & Interpretation Completed 10/23/2007 76503 Color Doppler Completed 10/23/2007 29626 Color Doppler Completed 10/23/2007 84070 Pulse Doppler & Continuous Wave Completed 10/23/2007 39373 Pulse Doppler & Continuous Wave Completed 10/23/2007 68564 Pulse Doppler & Continuous Wave Completed 10/23/2007 87806 Echocardiogram Completed 10/23/2007 19164 Echocardiogram Completed 06/17/2007 04308 EKG Tracing & Interpretation Completed 06/17/2007 17155 EKG Tracing & Interpretation Completed 05/28/2007 46950 Color Doppler Completed 05/28/2007 83615 Pulse Doppler & Continuous Wave Completed 05/28/2007 86529 Pulse Doppler & Continuous Wave Completed 05/28/2007 69971 Echocardiogram Completed 05/28/2007 14826 Holter Monitor Completed 05/28/2007 26519 Holter Monitor Completed 04/16/2007 08779 EKG Tracing & Interpretation Completed 04/06/2007 19345 Com RT And LT Catheterization Completed 04/06/2007 44775 Com RT And LT Catheterization Completed 04/06/2007 71953 Inj Proc LFT Vent/LFT Atrl Angio Completed 04/06/2007 72470 Coronary Angiography Completed 04/06/2007 05945 Coronary Angiography Completed 04/06/2007 76873 S/I/R Inj Proc Vent And Or Atrial Completed 04/06/2007 87201 Selective Coronary Angioplasty Completed 04/06/2007 57500 Selective Coronary Angioplasty Completed 04/03/2007 74387 Color Flow Doppler/Interp & Reprt Completed 04/03/2007 36794 Pulse Wave/Continuous-Interp.RPT Completed 04/03/2007 00942 Pulse Wave/Continuous-Interp.RPT Completed 04/03/2007 06693 Echocardiogram Completed 04/03/2007 28919 EKG, Interpretation Only Completed 04/03/2007 05684 EKG, Interpretation Only Completed Encounters Type Date Location Provider CPT E/M Dx Office Visit 06/04/2017 [facility], Wilbert Baxter, 86281 I50.21 8:38a Hospitalists M.DLina E11.9 I10 I48.91 Office Visit 06/03/2017 8:37a [facility], Wilbert Baxter, 67259 I50.21 Hospitalists M.Harjinder E11.9 I10 I48.91 Office Visit 06/02/2017 8:36a [facility], Wilbert Baxter, 03237 I50.21 Hospitalists MKiara E11.9 I10 I48.91 Office Visit 06/01/2017 8:30a [facility], Aileen Dunn, N.P. 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 [address] I47.2 Etelvina German I25.9 Z95.810 I25.5 R55 Z95.810 I10 G47.33 I48.91 R94.31 Office Visit 02/19/2017 10:00a [facility] CHERELLE Mancuso 33677 Z95.810 R55 I10 I25.5 Office Visit 01/01/2017 10:00a [facility] Macey Cespedes, 75421 G47.33 [facility] LIS GROSS, [employer] Office Visit 12/10/2016 2:30p [facility] CHERELLE Mancuso 96042 I47.2 Ashely I25.9 Z95.810 I10 Office Visit 11/01/2016 11:00a [facility] Macey Cespedes, 50250 G47.33 [facility] LIS GROSS, [employer] G47.14 R04.0 Office Visit 09/09/2016 1:20p [facility] SLina German 60301 G47.33 Etelvina I42.9 I25.9 E78.5 I25.110 R94.31 Office Visit 08/30/2016 11:00a [facility] Macey Cespedes, 21030 G47.33 [facility] LIS GROSS, BAHMAN G47.14 Office Visit 07/19/2016 10:45a [facility] Macey Cespedes 27771 G47.33 [facility] LIS GROSS, BAHMAN G47.14 Office Visit 07/10/2016 1:00p [facility] CHERELLE Mancuso 99402 I42.9 I25.9 R00.0 E87.5 E78.5 Office Visit 07/05/2016 3:30p [facility] CHERELLE Mccallum 25813 I25.9 R21 I42.9 R00.0 I10 Office Visit 06/12/2016 10:15a [facility] [place] [address] R06.83 [facility] G47.10 Office Visit 03/28/2016 3:30p [facility] CHERELLE Mancuso 70155 I42.9 R06.83 Z95.810 I25.118 M79.604 Office Visit 02/15/2016 10:20a [facility], [place] [address] R07.9 Hospitalists I25.10 I10 Office Visit 01/01/2016 1:40p [facility] Qutaybeh S. Monserrat, 14165 I42.9 M.D. I25.10 I10 E78.5 R94.31 Office Visit 12/28/2015 3:28p [facility] Isidro Andres M.D., 42627 I25.110 [facility] Office Visit 12/04/2015 1:40p [facility] Qutaybeh S. 27818 I42.9 Etelvina German I25.10 I10 E78.5 Office Visit 10/19/2015 3:00p [facility] CHERELLE Mccallum 32716 Z95.810 I42.9 R00.0 E78.5 Office Visit 09/18/2015 3:00p [facility] Qutaybeh SLina German, 43100 I42.9 M.D. Z95.810 I25.10 I10 R00.0 I44.0 Office Visit 04/21/2015 3:00p [facility] CHERELLE Mancuso 43699 I42.9 Z95.810 I25.10 I10 R53.83 Office Visit 12/26/2014 2:40p [facility] Qutaybeh S. Monserrat, 72143 I42.8 M.D. Z95.810 I25.10 I10 Office Visit 11/08/2014 1:20p [facility] Qutaybeh S. Monserrat, 29662 Z95.810 M.DLina I42.8 I25.9 E11.9 R07.89 Office Visit 07/07/2014 3:30p [facility] CHERELLE Mancuso 69455 250.00 414.9 787.01 783.21 V45.02 285.9 Office Visit 05/04/2014 8:17a [facility], Alexia Stanton, 17675 599.0 Hospitalists M.D. 592.0 038.9 250.00 Office Visit 05/03/2014 10:26a [facility] Qutaybeh S. Maghaydah, 34317 786.50 M.D. 794.31 Office Visit 05/03/2014 8:17a [facility] Alexia Stanton, 78532 599.0 Hospitalists M.D. 592.0 038.9 790.6 Office Visit 05/02/2014 11:23a [facility] Qutaybeh S. Maghaydah, 27295 414.9 M.D. 414.8 425.4 Office Visit 05/02/2014 8:15a [facility], Alexia Stanton, 10539 599.0 Hospitalists M.D. 592.0 038.9 790.6 Office Visit 05/01/2014 8:15a [facility], Aileen Dunn, N.P. 41202 599.0 Hospitalists 592.0 038.9 250.00 Office Visit 04/30/2014 8:13a [facility], Aileen Dunn N.P. 67403 599.0 Hospitalists 592.0 038.9 250.00 Office Visit 04/11/2014 1:20p [facility] Qutaybeh S. Maghaydah, 52953 425.4 M.D. 401.9 425.9 V45.02 414.01 Office Visit 04/07/2014 10:34a [facility], Jose Humphreys, 91761 592.0 Hospitalists M.D. 425.4 250.00 401.9 Office Visit 04/06/2014 10:34a [facility], Jose Humphreys, 08475 592.0 Hospitalists M.D. 425.4 250.00 401.9 Office Visit 04/06/2014 9:06a [facility] Arnulfo Kelley M.D. 46036 414.9 425.9 427.1 Office Visit 04/05/2014 10:33a [facility], Gary Richardson, 29215 592.0 Hospitalists N.P. 425.4 250.00 401.9 Office Visit 09/23/2013 2:06p [facility] Jenisetaybbrennan SLina German, 28484 425.4 M.D. 786.50 Office Visit 09/14/2013 1:30p [facility] CHERELLE Mancuso 23127FNI 786.50 414.01 794.31 425.9 V45.02 Office Visit 07/26/2013 4:00p [facility] Jenisetaybbrennan S. Monserrat, 38688 786.50 M.D. 414.01 794.31 V45.02 Office Visit 12/24/2012 10:30a [facility] Pedritoybbrennan SLina German, 77455 794.31 M.D. 414.9 414.8 Office Visit 11/24/2012 9:20a [facility] Jenisetaybbrennan SLina German, 30979 V45.02 M.D. 425.9 401.1 414.01 794.31 414.8 V72.81 786.05 Office Visit 10/16/2012 11:00a [facility] Leobardo Reynoso, 09884 724.03 Sienna Main Office Visit 10/01/2012 10:15a [facility] Jasso, 92022 724.03 CVic Main Office Visit 09/03/2012 1:15p [facility], 35723 724.3 CVic Main 719.46 Office Visit 07/30/2012 4:00p [facility] [place] [address] 401.1 Office Visit 06/09/2012 2:20p [facility] Jenisetaybbrennan SLina German, 19648 794.31 M.D. 414.01 425.9 401.1 785.0 Office Visit 05/26/2012 10:00a [facility] Jenisetaybeh SLina German, 01571 425.9 M.DLina V45.02 414.01 401.1 794.31 272.4 785.0 786.05 Office Visit 08/12/2011 3:00p [facility] Leia Katz, N.P. 63901 414.01 425.9 401.1 Office Visit 07/25/2011 2:15p [facility], 73555 717.7 C.M.Oleg Main Office Visit 06/27/2011 9:30a [facility] Qutaybeh S. 07338 794.31 Etelvina German 414.01 425.9 414.8 401.1 786.50 Office Visit 06/04/2011 2:00p [facility] Qutaybeh S. Monserrat, 66596 425.9 M.DLina 786.50 794.31 401.1 272.4 V45.02 Office Visit 05/24/2011 8:15a [facility], 37778 724.3 C.M.Oleg MKiara Office Visit 01/17/2011 10:00a [facility] Jaz Avelar, 48716 719.46 C.M.Oleg RPA-C 717.9 836.0 Office Visit 07/12/2010 9:30a [facility] Qutaybbrennan S. Monserrat, 77477 794.31 M.DLina 412 414.01 401.1 272.4 Office Visit 06/06/2010 10:00a [facility] Qutaybeh S. Sharonydah, 85721 794.31 M.DLina 425.4 425.9 V45.02 401.9 414.01 272.4 Office Visit 10/18/2009 8:40a [facility] Qutaybeh S. haydah, 74694 425.9 M.D. V45.02 401.9 414.01 Office Visit 06/21/2009 11:20a [facility] Qutaybeh S. haydah, 17762 401.9 M.D. 414.01 272.4 Office Visit 06/16/2009 3:15a [facility],shweta Morales M.D. 96931 250.00 Hospitalists 401.9 272.4 414.9 Office Visit 06/15/2009 3:00a [facility], Ismael Morales M.D. 37817 250.02 Hospitalists 414.9 401.9 790.99 Office Visit 06/14/2009 1:15a [facility] [place], [address] 790.29 Assoc, Hospitalists M.D. Office Visit 06/14/2009 12:00p [facility] Qutaybeh S. 03317 414.01 Etelvina German 786.50 425.9 414.9 Office Visit 06/07/2009 10:00a [facility] Qutaybeh S. Maghaydah, 27454 414.01 M.D. 414.8 V45.02 425.9 401.1 Office Visit 04/25/2009 2:20p [facility] Qutaybeh S. Maghaydah, 19831 V45.02 M.D. 425.9 414.01 401.1 Office Visit 03/20/2009 12:45a [facility], Lulu Grove, 18039 682.9 Hospitalists M.D. 250.00 428.0 Office Visit 03/19/2009 1:00a [facility], Lulu [place], 23398 682.9 Hospitalists M.D. 250.00 428.0 Office Visit 03/18/2009 12:15a [facility], Jose Humphreys, 61480 682.9 Hospitalists M.D. 250.00 790.29 428.0 Office Visit 12/01/2008 2:20p [facility] Qutaybeh S. Maghaydah, 63297 V45.02 M.D. 425.9 414.01 401.0 Office Visit 07/05/2008 3:20p [facility] Qutaybeh S. Maghaydah, 42132 425.9 M.D. V45.02 414.01 401.0 786.05 Office Visit 03/31/2008 1:40p [facility] Qutaybeh S. Maghaydah, 82889 425.9 M.D. V45.02 414.01 272.4 250.00 786.05 Office Visit 03/10/2008 12:40p [facility] Pedritobrennan German, 97316 414.01 M.D. 425.9 272.4 250.00 786.05 786.50 Office Visit 02/04/2008 11:00a [facility] Pedritobrennan German, 45000 414.01 M.D. 425.9 272.4 250.00 427.69 Office Visit 11/25/2007 8:40a [facility] Pedritobrennan German, 97904 414.01 M.D. 425.9 786.05 786.50 272.4 250.00 Office Visit 06/17/2007 11:20a [facility] Timmy German, 26007 414.01 M.D. 425.9 786.05 786.50 272.4 250.00 278.0 427.69 785.0 Office Visit 04/16/2007 3:00p [facility] Timmy German, 26718 414.01 M.D. 425.9 401.0 272.4 786.05 250.00 278.0 Plan of Care Future Appointment(s):08/07/2017 1:00 pm - Timmy German M.D. at [facility]10/14/2017 9:15 am - Macey Cespedes DNP, RN, [employer] at [facility]07/04/2017 - Timmy German M.D.I10 Essential (primary) yajoieiozzypR23.91 Unspecified atrial fibrillationNew Orders:CardioversionFollow up:6 months Bhargavi one yr ov with meI25.9 Chronic ischemic heart disease, [id number] Obstructive sleep apnea (adult) (pediatric)I25.10 Athscl heart disease of [place] coronary artery w /o ang pctrs
[2017-07-17 18:28] LABS: Urine Appearance Clear; Urine Blood 1+ (Negative); Urine Color Yellow; Urine Ketones Negative (Negative); Urine Protein 1+(30 mg/dL) (Negative); Urine Specific Gravity 1.014 (1.010-1.030); Urine Urobilinogen Negative (Negative)
[2017-07-17] MEDS ORDERED: Insulin REGULAR(*) 1 UNITS UNIT IV PUSH ONE ×2 (18:30→21:06)
[2017-07-17] MEDS: NS 0.9% 1000 ML* 2,000 ML IV ONE ×2 (18:39→19:29)
[2017-07-17 18:44] LABS: ABS Basophils 0.1 10^3/ul (0-0.2); ABS Eosinophils 0.2 10^3/ul (0-0.6); ABS Lymphocytes 1.5 10^3/ul (1.0-4.8); ABS Monocytes 0.5 10^3/ul (0-0.8); ABS Neutrophils 5.3 10^3/ul (1.5-7.7); ABS Nucleated RBC 0 10^3/ul; Eosinophil % 2.6 % (0-6); Hematocrit 31 % (42-52); Hemoglobin 9.5 g/dl (14.0-18.0); Lymphocyte % 20.1 % (25-47); Mean Corpuscular HGB Conc 31 g/dl (31-36); Mean Corpuscular Hemoglobin 22 pg (27-31); Mean Corpuscular Volume 70 fL (80-94); Mean Platelet Volume 8.7 um3 (7.4-10.4); Nucleated Red Blood Cells % 0; Platelet Count 170 10^3/ul (150-450); Red Blood Count 4.39 10^6/ul (4.0-5.4); Red Cell Distribution Width 17 % (10.5-15); White Blood Count 7.5 10^3/ul (3.5-10.8)
--- NOTE | 2017-07-17 18:53 | ED ---
Cruzito Griffiths Rebecca, scribed for Joshua Crowder on 07/17/17 at 1825 . HPI Diabetic - HPI Summary HPI Summary: Pt is a 56 y/o M who presents to ED due to elevated BG. Pt had blood work done as an outpatient and his BG was 591, so he was called and referred to the ED. Denies fever, SOB, and CP. No recent illnesses or steroid use. Denies any alcohol or drug use. PMHx DM - takes metformin, unsure of dosage, and he is compliant. - History Of Current Complaint Chief Complaint: EDDiabeticProb Time Seen by Provider: 07/17/17 18:19 Hx Obtained From: Patient Onset/Duration: Still Present Severity Currently: None Character: Alert Aggravating: Nothing Alleviating: Nothing Associated Signs & Symptoms: Negative - Allergies/Home Medications Allergies/Adverse Reactions: Allergies Allergy/AdvReac Type Severity Reaction Status Date / Time shellfish derived Allergy Unknown Verified 05/21/17 14:02 Reaction Details Contrast dye Allergy Unknown Uncoded 05/21/17 14:02 Reaction Details PMH/Surg Hx/FS Hx/Imm Hx Endocrine/Hematology History: Reports: Hx Diabetes Denies: Hx Anticoagulant Therapy, Hx Blood Disorders, Hx Blood Transfusions, Hx Bone Marrow Disease, Hx Systemic Lupus Erythematosus, Hx Sickle Cell Disease , Hx Thyroid Disease, Hx Anemia, Hx Unexplained Bleeding, Other Endocrine/ Hematological Disorders Cardiovascular History: Reports: Hx Angina, Hx Angioplasty, Hx Atrial Fibrillation, Hx Coronary Artery Disease, Hx Hypercholesterolemia, Hx Hypertension, Hx Pacemaker/ICD - 2008 Denies: Hx Aneurysm, Hx Auto Implanted Cardiovert Defib, Hx Cardiac Arrest, Hx Cardiomegaly, Hx Congenital Heart Disease, Hx Congestive Heart Failure, Hx Deep Vein Thrombosis, Hx Embolism, Hx Hypotension, Hx Myocardial Infarction, Hx Peripheral Vascular Disease, Hx Rheumatic Fever, Hx Syncope, Hx Valvular Heart Disease, Other Cardiovascular Problems/Disorders Respiratory History: Reports: Hx 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 Denies: Hx Chronic Bronchitis, Hx Chronic Obstructive Pulmonary Disease (COPD ), Hx Cystic Fibrosis, Hx Lung Cancer, Hx Pleural Effusion, Hx Pneumonia, Hx Pulmonary Edema, Hx Pulmonary Embolism, Hx Seasonal Allergies, Hx Sleep Apnea, Other Respiratory Problems/Disorders GI History: Reports: Hx Gastroesophageal Reflux Disease Denies: Hx Cirrhosis, Hx Crohn's Disease, Hx Diverticulosis, Hx Gall Bladder Disease, Hx Gastrointestinal Bleed, Hx Hiatal Hernia, Hx Irritable Bowel, Hx Jaundice, Hx Obstructive Bowel, Hx Ileostomy, Hx Pyloric Stenosis, Hx Ulcer, Other GI Disorders History: Reports: Hx Kidney Stones - LEFT Denies: Hx Acute Renal Failure, Hx Benign Prostatic Hyperplasia, Hx Chronic Renal Failure, Hx Dialysis, Hx Kidney Infection, Hx Renal Disease, Other Problems/Disorders Musculoskeletal History: Reports: Hx Arthritis - BILATERAL HANDS AND LEGS Denies: Hx Back Problems, Hx Bursitis, Hx Congenital Bone Abnormalities, Hx Fibromyalgia, Hx Gout, Hx Orthopedic Injury, Hx Osteoporosis, Hx Scoliosis, Hx Tendonitis, Other Musculoskeletal History Sensory History: Reports: Hx Contacts or Glasses Denies: Hx Cataracts, Hx Glaucoma, Hx Hearing Aid, Hx Hearing Problem Opthamlomology History: Reports: Hx Contacts or Glasses Denies: Hx Cataracts, Hx Glaucoma Neurological History: Denies: Hx Dementia, Hx Headaches, Hx Migraine, Hx Seizures, Hx Transient Ischemic Attacks (TIA), Other Neuro Impairments/Disorders Psychiatric History: Reports: Hx Depression Denies: Hx Anxiety, Hx Attention Deficit Hyperactivity Disorder, Hx Eating Disorder, Hx Panic Disorder, Hx Post Traumatic Stress Disorder, Hx Inpatient Treatment, Hx Community Mental Health Tx, Hx Schizophrenia, Hx Bipolar Disorder , Hx Suicide Attempt, Hx of Violent Episodes Against Others, Hx Substance Abuse , Other Psychiatric Issues/Disorders - Surgical History Surgery Procedure, Year, and Place: PACEMAKER [facility] [place] [facility]. APPENDECTOMY [facility] [place]. MULTIPLE CYSTO, L STENT, L ESWL PROCEDURES [facility] [place]. CARDIAC CATH X3 2009, 2016 Hx Anesthesia Reactions: No - Immunization History Date of Tetanus Vaccine: Unknown Infectious Disease History: No Infectious Disease History: Denies: Hx Clostridium Difficile, Hx Hepatitis, Hx Human Immunodeficiency Virus (HIV), Hx Tuberculosis, Traveled Outside the [place] in Last 30 Days - Family History Known Family History: Positive: Cardiac Disease, Hypertension - Social History Alcohol Use: None Alcohol Amount: 2-3 PER DAY Substance Use Type: Reports: None Smoking Status (MU): Former Smoker Type: Cigarettes Amount Used/How Often: 2 PACKS A DAY Length of Time of Smoking/Using Tobacco: MANY YRS Have You Smoked in the Last Year: No Review of Systems Positive: Other - Elevated BG. Negative: Fever Negative: Chest Pain Negative: Shortness Of Breath All Other Systems Reviewed And Are Negative: Yes Physical Exam - Summary Physical Exam Summary: Appearance: Well appearing, no pain distress Skin: warm, dry, reflects adequate perfusion Head/face: normal Eyes: EOMI, ANUEL ENT: normal Neck: supple, non-tender Respiratory: CTA, breath sounds present Cardiovascular: RRR, pulses symmetrical ~ Abdomen: non-tender, soft Bowel: present Musculoskeletal: normal, strength/ROM intact Neuro: normal, sensory motor intact, A&Ox3 Triage Information Reviewed: Yes Vital Signs On Initial Exam: Initial Vitals Temp Pulse Resp BP Pulse Ox 98.6 F 81 15 150/88 98 07/17/17 17:52 07/17/17 17:52 07/17/17 17:52 07/17/17 17:52 07/17/17 17:52 Vital Signs Reviewed: Yes Diagnostics - Vital Signs Vital Signs Temp Pulse Resp BP Pulse Ox 07/17/17 17:52 98.6 F 81 15 150/88 98 - Laboratory Lab Results: Lab Results 07/17/17 Range/Units 18:08 POC Glucose (mg/dL) > 444 H* (70-100) mg/dL Lab Statement: Any lab studies that have been ordered have been reviewed, and results considered in the medical decision making process. Diabetic Course/Dx - Course Assessment/Plan: Pt is a 56 y/o M who presents to ED due to elevated BG of 591 on outpatient lab work. Denies fever, SOB, and CP. No recent illnesses or steroid use. Denies any alcohol or drug use. PMHx DM - takes metformin, unsure of dosage, and he is compliant. UA was done. POC glucose was >444 in the ED. In the ED course, he received insulin and fluids. Pt will be signed out to Dr. Garvey, pending dispo, awaiting CXR and EKG. - Diagnoses Provider Diagnoses: Uncontrolled diabetes mellitus Discharge - Sign-Out/Discharge Documenting (check all that apply): Sign-Out Patient Signing out patient TO: Rea Garvey - Discharge Plan Condition: Stable Referrals: Erasmo Hill MD [Primary Care Provider] - The documentation as recorded by the Cruzito dove Rebecca accurately reflects the service I personally performed and the decisions made by , Joshua Crowder.
[2017-07-17 18:56] LABS: EGFR Non-African American 39.7 (>60)
--- NOTE | 2017-07-17 19:46 | RAD ---
HISTORY: Shortness of breath COMPARISONS: June 01, 2012 VIEWS: 4: Frontal dual-energy and lateral views of the chest. FINDINGS: CARDIOMEDIASTINAL SILHOUETTE: The cardiomediastinal silhouette is normal. MAGALI: The magali are normal. PLEURA: There is a small left pleural effusion. LUNG PARENCHYMA: There is patchy alveolar opacification of the bases bilaterally. ABDOMEN: The upper abdomen is clear. There is no subphrenic gas. BONES AND SOFT TISSUES: No bone or soft tissue abnormalities are noted. OTHER: A left-sided ICD pacemaker is noted. IMPRESSION: SMALL PLEURAL EFFUSION WITH PATCHY BIBASILAR ATELECTASIS VERSUS EARLY CONSOLIDATION.
[2017-07-17] MEDS ORDERED: Levofloxacin 500 MG IVPREMIX(* 500 MG/100 ML BAG IVPB ONE (20:14)
[2017-07-17] MEDS ORDERED: Albuterol HFA INHALER* 8 gm MDI INH PRN (22:20)
[2017-07-17] MEDS ORDERED: glipiZIDE TAB* 5 MG PO ONE (22:24)
[2017-07-17] MEDS ORDERED: Acetaminophen TAB* 325 MG PO PRN (22:25)
[2017-07-17] MEDS ORDERED: Dextrose 50% Syringe 50 ML* 25 GM/50 ML SYRINGE IV PUSH PRN (22:25)
--- NOTE | 2017-07-17 23:06 | ED ---
I, Madeline Sarabia, scribed for Rea Garvey MD on 07/17/17 at 2046 . Progress - Progress Note Progress Note: Pt signed out from Dr. Crowder, awaiting CXR, EKG, BG, dispo. - EKG/XRAY/CT EKG: rhythm - EKG taken at 20:17. A-fib at 80 BPM. XRAY: chest - SMALL PLEURAL EFFUSION WITH PATCHY BIBASILAR ATELECTASIS VERSUS EARLY CONSOLIDATION. ED physician has reviewed this report. Re-Evaluation - Re-Evaluation First Eval Re-Evaluation Time: 21:20 Comment: Pt agreeable to admission to hospitalist to monitor BG. Course/Dx - Course Course Of Treatment: 56 y/o M complains of elevated BG of 591 on outpatient lab work, signed out from Dr. Crowder, pending CXR, EKG, BG, dispo. BG still elevated after repeat tests. Pt will be admitted to Dr. Baxter, hospitalist, for further evaluation. - Diagnoses Provider Diagnoses: Hyperglycemia, Renal insufficiency - Provider Notifications Discussed Care Of Patient With: Wilbert Baxter Time Discussed With Above Provider: 21:27 Instructed by Provider To: Other - Dr. Baxter, hospitalist, agrees to come see pt. Will admit him. Discharge - Sign-Out/Discharge Documenting (check all that apply): Discharge/Admit/Transfer - Discharge Plan Condition: Stable Disposition: ADMITTED TO [facility] The documentation as recorded by the scribCornell archuleta Tiffany accurately reflects the service I personally performed and the decisions made by me, Rea Garvey MD.
[2017-07-18] MEDS: Nitroglycerin TAB 0.4 MG* 0.4 MG TAB SL PRN ×2 (03:54→04:00)
--- NOTE | 2017-07-18 07:52 | HP ---
CC: Dr. Hill; Anita Knight NP * ADMISSION HISTORY AND PHYSICAL: DATE OF ADMISSION: 07/17/17 PRIMARY CARE PROVIDERS: Dr. Hill as well as Anita Knight NP. HEALTHCARE PROXY: His girlfriend, Doreen Sawant. CODE STATUS: Full. SOURCE OF INFORMATION: History obtained from interview with the patient. RELIABILITY: Fair. CHIEF COMPLAINT: Hyperglycemia. HISTORY OF PRESENT ILLNESS: This is a 56-year-old man whose last hospital stay with us from 06/01/17 to 06/04/17 was for acute decompensated systolic heart failure with hypoxic respiratory failure, discharged, and being doing well since that time; however, notes that over the last couple of days, unable to say exactly how many, he has had increased urinary frequency with increased sensation of being very thirsty, not associated with dysuria or urinary urgency. Today, he woke up and ate breakfast and later in the morning about 11 a.m., he had blood work done ordered by Dr. Kelley, found blood sugar reportedly above 500. The patient was otherwise asymptomatic. The patient checks his fingersticks in the morning. He has noted all of them in the 300s daily for at least the last several days. He notes that he eats low carbohydrate, but indicates for lunch, he had a hamburger with potato salad and in the evening, he additionally ate sandwiches with some other starch including potato salad. He likes to drink apple juice and orange juice indicating low understanding for typical consistent- or low-carbohydrate diet. He has been feeling otherwise okay. No chest pain or shortness of breath. No fevers, chills , or night sweats. No cough, abdominal pain, nausea, vomiting, diarrhea, constipation, melena, or epistaxis. He is unclear what medications he is taking for diabetes and he says he has recently seen his PCP without changes to his home medications. He notes he previously used insulin at home, however, stopped because he disliked the needles. He recalls an episode where he had a needle break off in his belly. He would not consider using insulin again because of the needles. In the emergency room, he was given 2 separate doses of insulin regular 4 units and 8 units at separate times. He was given a dose of levofloxacin for suspected UTI based on his urinalysis and what apparently looks like 2 L of normal saline. PAST MEDICAL HISTORY: Includes CKD; type 2 diabetes; anemia; CAD with last PCI in 2016; atrial fibrillation, on Xarelto; COPD, not on home oxygen; ETHAN, has not used CPAP since his last episode of epistaxis several months ago; history of epistaxis; hyperlipidemia; irritable bowel syndrome; ureteral calculus. MEDICATIONS: Reviewed from chart, the patient cannot verify any of his mediations, include: 1. Triamterene 50 mg daily. 2. Brilinta 90 mg twice daily. 3. Janumet 50 mg/1000 mg twice daily. 4. Xarelto 20 mg daily. 5. Prilosec 20 mg twice daily. 6. Nitroglycerin tabs 0.4 mg every 5 minutes as needed for chest pain. 7. Nasonex 50 mcg to both nares daily. 8. Metoprolol XL 25 mg daily. 9. Magnesium oxide 400 mg daily. 10. Lisinopril 2.5 mg daily. 11. Gabapentin 300 mg twice daily. 12. Lasix 20 mg daily. 13. Diltiazem 30 mg twice daily. 14. Cetirizine 10 mg daily. 15. Budesonide/formoterol 2 puffs twice daily. 16. Atorvastatin 80 mg daily. 17. Aspirin 81 mg daily. 18. Albuterol 1 puff twice daily. 19. Acetaminophen 500 mg twice daily. ALLERGIES: To CONTRAST DYE. FAMILY HISTORY: CAD, hypertension, and type 2 diabetes. SOCIAL HISTORY: Previous tobacco history. Does not drink alcohol. No illicits. REVIEW OF SYSTEMS: As per HPI. Otherwise, all other systems negative. PHYSICAL EXAMINATION GENERAL: Sitting at 45 degrees in bed, interactive, pleasant, no apparent distress. VITAL SIGNS: In the emergency room, 129/82, respiratory rate is 16, heart rate is 81, 98% on room air, T-max is 98.6. HEENT: Oropharynx is clear. He has no ulcers. His has moist mucous membranes. Sclerae are anicteric. NECK: He has non-elevated JVP. LUNGS: His lungs have faint rales in the right base. HEART: He has regular rate and rhythm. No murmurs, rubs, or gallops. ABDOMEN: Soft, nontender, and nondistended. EXTREMITIES: Warm and well perfused. He has 1+ lower extremity pitting edema. He has less than 2-second cap refill. NEUROLOGIC: He is alert and oriented x3. His cranial nerves II through XII are intact. No apparent anxiety, agitation, or depression. DIAGNOSTIC STUDIES/LAB DATA: Data reviewed: Chest x-ray, formal impression is small pleural effusions with patchy bibasilar atelectasis versus early consolidation. Labs reviewed: Notable for [id number] glucose on presentation greater than 444, decreasing to 272. Urine indicates protein, blood, leuk esterase, white blood cells, red blood cells, squamous epithelial cell, yeasts, and glucose, but no bacteria. White blood cell count is 7.5. His creatinine is 1.78. EKG: Atrial fibrillation, ventricular rate of 80, left axis, anterior inferior Q waves. No ST- or T-wave changes. ASSESSMENT AND PLAN: This 56-year-old man presenting with hyperglycemia, also questionably dirty urinalysis as well as chest x-ray notable for pleural effusions and atelectasis versus early consolidations. 1. Hyperglycemia in the setting of type 2 diabetes. The patient is on Janumet 50/100. Notably, he is taking metformin with history of chronic kidney disease. This may not be the best medication. Now, he has failed 2 oral medications, he would be a candidate for insulin as an outpatient; however, is indicating he would not want to begin insulin at this time. For this reason, I believe he warrants overnight hospital stay with a better solidification for oral medication plan with early followup with his PCP to be arranged tomorrow. I will give him glipizide 5 mg tonight, although attention should be paid for potential GLP-1 agonist if his insurance will cover and he will administer it and/or an SGLT inhibitor also with the caveat if his insurance will cover it. Otherwise, SGLT inhibitor with sulfonylurea and continued DPP-4 inhibitor at a higher dose increasing from 50 to 100 mg, i.e., Januvia or sitagliptin to 100 mg will be the least we can offer. I have added on hemoglobin A1c to the ED labs to get a better understanding of his recent type 2 diabetes control. Potentially, if oral medications are not available and clearly are inferior to institution of insulin, he could be convinced to start insulin with some more conversation. We will administer sliding scale insulin while in the hospital in addition to the 5 mg glipizide started tonight. 2. Urinary tract infection. Urinalysis certainly is dirty, although there are no bacteria. His only symptom has been of urinary frequency, which I would suspect is in the setting of hyperglycemia. He received a dose of Levaquin in the emergency room. I will not continue antibiotics, although the urine culture should be noted to be followed up with his PCP. 3. Lung atelectasis versus consolidation. The patient has no hypoxia, no cough , and no leukocytosis. I do not suspect a pneumonia at this time. attention should be relayed to PCP for followup. 4. Atrial fibrillation. Continue rivaroxaban as well as metoprolol and Cardizem. 5. Coronary artery disease. Continue ticagrelor and aspirin. Please note the patient is on triple antiplatelet therapy. I previously encouraged PCP to follow up on discontinuation on ticagrelor if warranted. Last percutaneous coronary intervention was in 2016. 6. Chronic obstructive pulmonary disease, stable. Continue Dulera while in the hospital. Restart Symbicort on discharge. 7. DVT prophylaxis. Rivaroxaban as indicated above for atrial fibrillation. 8. Obstructive sleep apnea. Has not used CPAP in a number of months, we will not restart now. [id number]/[facility] #: [id number] ALBINO
[2017-07-18] MEDS: Insulin LISPRO* 1 UNITS UNIT SUBCUT SCH ×2 (08:44→12:38)
[2017-07-18] MEDS ORDERED: Fluticasone NASAL SPRAY 50MCG* 16 gm SPRAY BTL BOTH NARES SCH (09:00)
[2017-07-18] MEDS ORDERED: Lisinopril TAB* 5 MG PO SCH (09:00)
[2017-07-18] MEDS ORDERED: Furosemide TAB* 20 MG PO SCH (09:00)
[2017-07-18] MEDS ORDERED: Aspirin EC TAB* 81 MG TAB.EC PO SCH (09:00)
[2017-07-18] MEDS ORDERED: Diltiazem TAB* 30 MG PO SCH (09:00)
[2017-07-18] MEDS ORDERED: Rivaroxaban TAB(*) 20 MG TAB PO SCH (09:00)
[2017-07-18] MEDS ORDERED: Metoprolol Succinate XL TAB* 25 MG PO SCH (09:00)
[2017-07-18] MEDS ORDERED: Magnesium Oxide TAB* 400 MG PO SCH (09:00)
[2017-07-18] MEDS ORDERED: Omeprazole CAP* 20 MG PO SCH (09:00)
[2017-07-18] MEDS ORDERED: Atorvastatin* 80 MG TAB PO SCH (09:00)
[2017-07-18] MEDS ORDERED: Mometasone/Formoter 200/5 MDI INH SCH (09:00)
[2017-07-18] MEDS ORDERED: Gabapentin CAP(*) 300 MG PO SCH (09:00)
[2017-07-18] MEDS ORDERED: Ticagrelor* 90 MG TAB PO SCH (09:00)
[2017-07-18] MEDS ORDERED: TRIAMTERENE 50 MG PO SCH (09:00)
[2017-07-18 10:35] LABS: ABS Basophils 0.1 10^3/ul (0-0.2); ABS Eosinophils 0.2 10^3/ul (0-0.6); ABS Lymphocytes 1.8 10^3/ul (1.0-4.8); ABS Monocytes 0.4 10^3/ul (0-0.8); ABS Neutrophils 6.2 10^3/ul (1.5-7.7); ABS Nucleated RBC 0 10^3/ul; Eosinophil % 2.5 % (0-6); Hematocrit 31 % (42-52); Hemoglobin 9.7 g/dl (14.0-18.0); Lymphocyte % 20.4 % (25-47); Mean Corpuscular HGB Conc 31 g/dl (31-36); Mean Corpuscular Hemoglobin 22 pg (27-31); Mean Corpuscular Volume 70 fL (80-94); Mean Platelet Volume 8.9 um3 (7.4-10.4); Nucleated Red Blood Cells % 0.1; Platelet Count 168 10^3/ul (150-450); Red Blood Count 4.42 10^6/ul (4.0-5.4); Red Cell Distribution Width 17 % (10.5-15); White Blood Count 8.6 10^3/ul (3.5-10.8)
[2017-07-18 11:03] LABS: EGFR Non-African American 51.2 (>60)
[2017-07-18 12:01] VITALS: BP 133/78
--- NOTE | 2017-07-19 13:37 | DS ---
CC: Dr. Wilbert Batxer; Dr. Joshua Crowder; Dr. Erasmo Hill DISCHARGE SUMMARY: DATE OF ADMISSION: 07/17/17 DATE OF DISCHARGE: 07/18/17 DISCHARGE DIAGNOSES: As follows: 1. Hyperglycemia secondary to poorly controlled diabetes mellitus, the patient refuses insulin therapy. 2. Urinary tract infection. 3. History of atrial fibrillation. 4. Coronary artery disease. 5. Chronic obstructive pulmonary disease. 6. Obstructive sleep apnea. DISCHARGE MEDICATIONS: As follows: 1. Tylenol 500 mg p.o. q. 12 hours. 2. Albuterol 1 puff inhalation b.i.d. 3. Aspirin 81 mg p.o. daily. 4. Atorvastatin 80 mg p.o. daily. 5. Budesonide/Symbicort 160/4.5 two puffs inhalation b.i.d. 6. Cetirizine 10 mg p.o. daily. 7. Diltiazem 30 mg p.o. b.i.d. 8. Lasix 20 mg p.o. daily. 9. Gabapentin 300 mg p.o. b.i.d. 10. Glipizide 5 mg p.o. daily. 11. Floranex 1 tab p.o. daily. 12. Levaquin 750 mg p.o. daily for 5 days. 13. Lisinopril 2.5 mg q. a.m. 14. Magnesium oxide 400 mg p.o. daily. 15. Metformin 500 mg p.o. b.i.d. 16. Metoprolol succinate 25 mg p.o. daily. 17. Mometasone nasal spray 50 mcg to both nares daily. 18. Nitroglycerin 0.4 mg tab sublingual q. 5 minutes p.r.n. 19. Omeprazole 20 mg p.o. b.i.d. 20. Rivaroxaban 20 mg p.o. daily. 21. Januvia 100 mg p.o. daily. 22. Ticagrelor 90 mg p.o. b.i.d. 23. Triamterene capsule 50 mg p.o. daily. HISTORY OF PRESENT ILLNESS/HOSPITAL COURSE: The patient is a 56-year-old gentleman with history of CKD, type 2 diabetes, and CAD status post PCI in 2016 who presented to the ED with a chief complaint of hyperglycemia. He mentions that after eating breakfast around 11 a.m. he had a blood work done by Dr. Kelley and found that his blood sugar was about 500. The patient was otherwise asymptomatic. The patient mentions that he checked his fingersticks in the morning and noted that all of them were in the 300 daily for at least several days. He notes that he eats low carbohydrates but indicates for lunch he had hamburger with potato salad in the evening. Given his propensity for dehydration, it was initially thought that metformin may not be the best medication for him. However on review of his data, his highest creatinine is 2.1 and was not above 2.5 and his GFR is always above 45 since at least 2014 and he has been on Janumet for quite some time. However, I do agree that because of his propensity for dehydration that high doses of metformin in his currently prescribed Janumet might not be the best idea. However given metformin's benefits especially in patients with multiple comorbidities we will decrease metformin instead to 500 mg p.o. b.i.d. and increase the sitagliptin component to 100 mg p.o. daily. In addition, we will add glipizide to his regimen because he continues to refuse to be placed on insulin and hence we will defer with subsequent discussions about risks and benefits with his PCP. His UTI was then subsequently treated with Levaquin and he has been advised to follow up with his primary care physician within 3 days to make sure that he is on appropriate medications based on culture and sensitivity data. He had been advised to make sure to drink at least 1 to 1.5 L of water/fluids every day and more if working outside with any significant activity. He had been reminded that his metformin has been decreased as described above given his chronic kidney disease and risk for dehydration despite not meeting contraindications usually published in literature. Metformin when taken correctly is safe and prolongs life span of diabetics and people with multiple medical comorbidities. 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 His Janumet has been discontinued and instead Januvia component was increased and the metformin was decreased as described above. He had been reminded that he had been placed on a new medication called glipizide and he is to finish his antibiotic therapy with Levaquin. He is to follow up with his PCP within 3 days post discharge and to take his medications as prescribed. He has also been advised to call the hospital from the calling card given to him prior to his discharge if his PCP is unable to help him immediately post discharge. He was informed that he can be seen by our [facility] program if such a need arises. Pt seen and examined. Meds and labs reviewed. ROS: Denied HARO/dizziness, F/C, N/V, CP, SOB, increased cough, sputum production , abd pain, diarrhea, constipation, dysuria, myalgias, arthralgias, throat pain , and new skin lesions. The rest of the 14 point ROS are unremarkable. PHYSICAL EXAM: GEN APPEARANCE: Awake, not in acute distress HEENT: NC/AT, PERRLA, moist oral mucosa, (-) throat erythema NECK: Soft, supple, (-) cervical LAD, (-)JVD HEART: S1S2 WNL, RRR, No MRG CHEST: CTA, BL, GAE, No W/R/R ABD: Soft, ND/NT, NABS 4x Q EXT: No C/C/E SKIN: Warm to touch PSYCH: No active psychosis, hallucinations, depression, SI/HI TIME SPENT: The total time spent evaluating the patient, reviewing pertinent data and appropriate documentation is greater than 30 minutes. [id number]/[facility] #: [id number] MTDD
== END 2017-07-18 14:15 | disposition home or self-care (01) ==
LOC: ED 17:48 → MED 22:25
PROVIDERS: ADMIT Internal Medicine; ATTEND Student in an Organized Health Care Education/Training Program
DX: E11.65 Type 2 diabetes mellitus with hyperglycemia (principal); N39.0 Urinary tract infection, site not specified; I48.91 Unspecified atrial fibrillation; J44.9 Chronic obstructive pulmonary disease, unspecified; I25.119 Atherosclerotic heart disease of native coronary artery with unspecified angina pectoris; E78.5 Hyperlipidemia, unspecified; G47.33 Obstructive sleep apnea (adult) (pediatric); K58.9 Irritable bowel syndrome, unspecified; Z79.82 Long term (current) use of aspirin; Z79.899 Other long term (current) drug therapy; Z79.01 Long term (current) use of anticoagulants; N18.9 Chronic kidney disease, unspecified; D64.9 Anemia, unspecified; Z95.810 Presence of automatic (implantable) cardiac defibrillator; Z87.891 Personal history of nicotine dependence
CPT/HCPCS: 36415; 71046; 80053; 81003; 81015; 82550; 82803; 83036; 83735; 84484; 85025; 86140; 87086; 93005; 94640; 96365; 99285; A9270-GY; G0378; J1956

== ENCOUNTER 2017-11-04 17:34 | Inpatient (IN) | payer MEDICARE, MEDICAID ==
--- NOTE | 2017-11-04 18:30 | ED ---
HPI Chest Pain - HPI Summary HPI Summary: This patient is a 57 year old M presenting to [facility] with a chief complaint of constant left anterior chest pain since 1 week ago. Patient reports that the pain radiates to his left arm and jaw. The patient reports that he fell 2x when trying to ambulate 2 days ago. The patient describes the pain to be like someone hit him hard in the chest. The patient notes that he is not currently experiencing the pain. The patient rates the pain 10/10 in severity. Symptoms aggravated by standing and ambulation. Symptoms alleviated by lying down. Patient reports SOB, nausea, and edema in bilateral legs. Patient denies diaphoresis. Patient has a pacemaker. - History of Current Complaint Chief Complaint: EDChestPainROMI Time Seen by Provider: 11/04/17 18:11 Hx Obtained From: Patient Onset/Duration: Started Weeks Ago - 1 week ago, Atraumatic, Still Present Timing: Constant, Lasting Weeks - 1 week Initial Severity: Moderate Current Severity: Moderate Pain Intensity: 10 Pain Scale Used: 0-10 Numeric Chest Pain Location: Left Anterior Chest Pain Radiates: Yes Chest Pain Radiates To:: Arm - left arm, Jaw Character: Other: - like someone hit him hard in the chest Aggravating Factor(s): Position - standing, Movement - ambulating Alleviating Factor(s): Rest, Position - lying down Associated Signs and Symptoms: Positive: Chest Pain - left anterior, Shortness of Breath, Nausea, Edema - bilateral lower legs, Other: - left arm pain, jaw pain. Negative: Diaphoresis - Additional Pertinent History Primary Care Physician: [id number] - Allergy/Home Medications Allergies/Adverse Reactions: Allergies Allergy/AdvReac Type Severity Reaction Status Date / Time shellfish derived Allergy Unknown Verified 08/06/17 14:38 Reaction Details Contrast dye Allergy Unknown Uncoded 05/21/17 14:02 Reaction Details PMH/Surg Hx/FS Hx/Imm Hx Endocrine/Hematology History: Reports: Hx Diabetes Denies: Hx Anticoagulant Therapy, Hx Blood Disorders, Hx Blood Transfusions, Hx Bone Marrow Disease, Hx Systemic Lupus Erythematosus, Hx Sickle Cell Disease , Hx Thyroid Disease, Hx Anemia, Hx Unexplained Bleeding, Other Endocrine/ Hematological Disorders Cardiovascular History: Reports: Hx Angina, Hx Angioplasty, Hx Atrial Fibrillation, Hx Coronary Artery Disease, Hx Hypercholesterolemia, Hx Hypertension, Hx Pacemaker/ICD - 2007 Denies: Hx Aneurysm, Hx Auto Implanted Cardiovert Defib, Hx Cardiac Arrest, Hx Cardiomegaly, Hx Congenital Heart Disease, Hx Congestive Heart Failure, Hx Deep Vein Thrombosis, Hx Embolism, Hx Hypotension, Hx Myocardial Infarction, Hx Peripheral Vascular Disease, Hx Rheumatic Fever, Hx Syncope, Hx Valvular Heart Disease, Other Cardiovascular Problems/Disorders Respiratory History: Reports: Hx 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 Denies: Hx Chronic Bronchitis, Hx Chronic Obstructive Pulmonary Disease (COPD ), Hx Cystic Fibrosis, Hx Lung Cancer, Hx Pleural Effusion, Hx Pneumonia, Hx Pulmonary Edema, Hx Pulmonary Embolism, Hx Seasonal Allergies, Hx Sleep Apnea, Other Respiratory Problems/Disorders GI History: Reports: Hx Gastroesophageal Reflux Disease Denies: Hx Cirrhosis, Hx Crohn's Disease, Hx Diverticulosis, Hx Gall Bladder Disease, Hx Gastrointestinal Bleed, Hx Hiatal Hernia, Hx Irritable Bowel, Hx Jaundice, Hx Obstructive Bowel, Hx Ileostomy, Hx Pyloric Stenosis, Hx Ulcer, Other GI Disorders History: Reports: Hx Kidney Stones - LEFT Denies: Hx Acute Renal Failure, Hx Benign Prostatic Hyperplasia, Hx Chronic Renal Failure, Hx Dialysis, Hx Kidney Infection, Hx Renal Disease, Other Problems/Disorders Musculoskeletal History: Reports: Hx Arthritis - BILATERAL HANDS AND LEGS Denies: Hx Back Problems, Hx Bursitis, Hx Congenital Bone Abnormalities, Hx Fibromyalgia, Hx Gout, Hx Orthopedic Injury, Hx Osteoporosis, Hx Scoliosis, Hx Tendonitis, Other Musculoskeletal History Sensory History: Reports: Hx Contacts or Glasses Denies: Hx Cataracts, Hx Glaucoma, Hx Hearing Aid, Hx Hearing Problem Opthamlomology History: Reports: Hx Contacts or Glasses Denies: Hx Cataracts, Hx Glaucoma Neurological History: Denies: Hx Dementia, Hx Headaches, Hx Migraine, Hx Seizures, Hx Transient Ischemic Attacks (TIA), Other Neuro Impairments/Disorders Psychiatric History: Reports: Hx Depression Denies: Hx Anxiety, Hx Attention Deficit Hyperactivity Disorder, Hx Eating Disorder, Hx Panic Disorder, Hx Post Traumatic Stress Disorder, Hx Inpatient Treatment, Hx Community Mental Health Tx, Hx Schizophrenia, Hx Bipolar Disorder , Hx Suicide Attempt, Hx of Violent Episodes Against Others, Hx Substance Abuse , Other Psychiatric Issues/Disorders - Surgical History Surgery Procedure, Year, and Place: PACEMAKER [facility] [place] 2008. APPENDECTOMY [facility] [place]. MULTIPLE CYSTO, L STENT, L ESWL PROCEDURES [facility] [place]. CARDIAC CATH X3 2009, 2016 Hx Anesthesia Reactions: No - Immunization History Date of Tetanus Vaccine: Unknown Infectious Disease History: No Infectious Disease History: Denies: Hx Clostridium Difficile, Hx Hepatitis, Hx Human Immunodeficiency Virus (HIV), Hx Tuberculosis, Traveled Outside the [place] in Last 30 Days - Family History Known Family History: Positive: Cardiac Disease, Hypertension - Social History Alcohol Use: None Alcohol Amount: 2-3 PER DAY Substance Use Type: Reports: None Smoking Status (MU): Former Smoker Type: Cigarettes Amount Used/How Often: 2 PACKS A DAY Length of Time of Smoking/Using Tobacco: MANY YRS Have You Smoked in the Last Year: No Review of Systems Negative: Skin Diaphoresis Positive: Chest Pain Positive: Shortness Of Breath Positive: Nausea Musculoskeletal: Other - left arm pain Positive: Edema - in bilateral lower legs All Other Systems Reviewed And Are Negative: Yes Physical Exam - Summary Physical Exam Summary: Appearance: The patient is well-nourished in no acute distress and in no acute pain. Skin: The skin is warm and dry and skin color reflects adequate perfusion. HEENT: The head is normocephalic and atraumatic. The pupils are equal and reactive. The conjunctivae are clear and without drainage. Nares are patent and without drainage. Mouth reveals moist mucous membranes and the throat is without erythema and exudate. The external ears are intact. The ear canals are patent and without drainage. The tympanic membranes are intact. Neck: The neck is supple with full range of motion and non-tender. There are no carotid bruits. There is no neck vein distension. Respiratory: Left chest wall tenderness. Lungs are clear to auscultation and breath sounds are symmetrical and equal. Cardiovascular: Heart rate is irregularly irregular. There is no murmur or rub auscultated. There is pitting edema. Pulses are symmetrical and equal. Abdomen: The abdomen is soft and non-tender. There are normal bowel sounds heard in all four quadrants and there is no organomegaly palpated. Musculoskeletal: There is no back tenderness noted. Extremities are non-tender with full range of motion. There is good capillary refill. There is mild pitting edema. No calf tenderness elicited. Neurological: Patient is alert and oriented to person, place and time. The patient has symmetrical motor strength in all four extremities. Cranial nerves are grossly intact. Deep tendon reflexes are symmetrical and equal in all four extremities. Psychiatric: The patient has an appropriate affect and does not exhibit any anxiety or depression. Triage Information Reviewed: Yes Vital Signs On Initial Exam: Initial Vitals Temp Pulse Resp BP Pulse Ox 98.2 F 64 16 139/67 96 11/04/17 17:35 11/04/17 17:35 11/04/17 17:35 11/04/17 17:35 11/04/17 17:35 Vital Signs Reviewed: Yes Diagnostics - Vital Signs Vital Signs Temp Pulse Resp BP Pulse Ox 11/04/17 17:35 98.2 F 64 16 139/67 96 - Laboratory Result Diagrams: 11/04/17 18:51 11/04/17 18:51 Lab Statement: Any lab studies that have been ordered have been reviewed, and results considered in the medical decision making process. - Radiology CXR Xray Interpretation: Positive (See Comments) - Impression: congestive heart failure Radiology Interpretation Completed By: ED Physician - Dr. Gonzalez, pending official report - EKG 17:39 Cardiac Rate: NL - at 69 bpm EKG Rhythm: Sinus Rhythm EKG Interpretation: Paced rhythm at 69 bpm Chest Pain Course/Dx - Course Course Of Treatment: Mr. Pratt presented to the emergency department complaining of chest pain for a week. It comes on when he tries to exert himself and is accompanied by shortness of breath and nausea. It relieves itself when he rests. His vitals were stable on arrival and his EKG was unremarkable for any acute ischemic changes. His chest x-ray showed some CHF as well as mild hyperkalemia and worsening chronic renal failure. His lactic acid was also slightly elevated. I was hesitant to give him fluids were to diurese him and contacted Dr. Mac the hospitalist for admission and further workup. - Diagnoses Provider Diagnoses: Chest pain, CHF (congestive heart failure) - Provider Notifications Discussed Care Of Patient With: Fatimah Mac Time Discussed With Above Provider: 20:54 Instructed by Provider To: Admit As Inpatient - Critical Care Time Critical Care Time: 30-74 min Discharge - Sign-Out/Discharge Documenting (check all that apply): Patient Departure - admit - Discharge Plan Condition: Stable Disposition: ADMITTED TO [facility] Referrals: Erasmo Hill MD [Primary Care Provider] - - Billing Disposition and Condition Condition: STABLE Disposition: Admitted to [facility] - Attestation Statements Document Initiated by Scribe: Yes Documenting Scribe: Rose Gilmore Provider For Whom Scribe is Documenting (Include Credential): Jl Gonzalez MD Scribe Attestation: I, Rose Gilmore, scribed for Jl Gonzalez MD on 11/04/17 at 2124. Scribe Documentation Reviewed: Yes Provider Attestation: The documentation as recorded by the scribe, Rose Gilmore accurately reflects the service I personally performed and the decisions made by me, Jl Gonzalez MD
[2017-11-04 19:12] LABS: INR 1.77 (0.77-1.02)
[2017-11-04 19:20] LABS: ABS Basophils 0.1 10^3/ul (0-0.2); ABS Eosinophils 0.2 10^3/ul (0-0.6); ABS Lymphocytes 1.2 10^3/ul (1.0-4.8); ABS Monocytes 0.7 10^3/ul (0-0.8); ABS Neutrophils 8.2 10^3/ul (1.5-7.7); ABS Nucleated RBC 0 10^3/ul; Eosinophil % 1.8 % (0-6); Hematocrit 31 % (42-52); Hemoglobin 9.5 g/dl (14.0-18.0); Lymphocyte % 11.2 % (25-47); Mean Corpuscular HGB Conc 31 g/dl (31-36); Mean Corpuscular Hemoglobin 21 pg (27-31); Mean Corpuscular Volume 68 fL (80-94); Mean Platelet Volume 8.6 um3 (7.4-10.4); Nucleated Red Blood Cells % 0.1; Platelet Count 187 10^3/ul (150-450); Red Blood Count 4.58 10^6/ul (4.00-5.40); Red Cell Distribution Width 18 % (10.5-15); White Blood Count 10.4 10^3/ul (3.5-10.8)
[2017-11-04 19:23] LABS: EGFR Non-African American 34.4 (>60)
[2017-11-04] MEDS ORDERED: NS 0.9% 1000 ML* 1,000 ML IV ONE (19:31)
[2017-11-04] MEDS ORDERED: Senna TAB PO PRN (21:32)
[2017-11-04] MEDS ORDERED: Ondansetron INJ* 2 MG/ML VIAL IV PRN (21:32)
[2017-11-04] MEDS ORDERED: Docusate CAP* 100 MG PO PRN (21:32)
[2017-11-04] MEDS ORDERED: Al Hydrox/Mg Hydrox/Simet LIQ* 30 ML UDC PO PRN (21:32)
[2017-11-04] MEDS ORDERED: Albuterol HFA INHALER* 8 gm MDI INH PRN (21:34)
[2017-11-04] MEDS ORDERED: Dextrose 50% Syringe 50 ML* 25 GM/50 ML SYRINGE IV PUSH PRN (22:16)
[2017-11-05] MEDS: Acetaminophen TAB* 325 MG PO PRN ×4 (00:06→19:55)
[2017-11-05] MEDS: Aspirin EC TAB* 81 MG TAB.EC PO SCH ×2 (00:07→09:23)
[2017-11-05 01:34] LABS: Urine Appearance Clear; Urine Blood Negative (Negative); Urine Color Yellow; Urine Ketones Negative (Negative); Urine Protein Negative (Negative); Urine Red Blood Cell Trace(0-2/hpf) (Absent); Urine Specific Gravity 1.011 (1.010-1.030); Urine Urobilinogen Negative (Negative); Urine White Blood Cell 2+(11-20/hpf) (Absent)
--- NOTE | 2017-11-05 02:30 | HP ---
CC: Tiny Knight NP; Arnulfo Kelley MD * HISTORY AND PHYSICAL: DATE OF ADMISSION: 11/04/17 TIME OF EVALUATION: 2100. PRIMARY CARE PHYSICIAN: Tiny Knight NP ASSEMBLER FOR PULLER OVER HAND: Arnulfo Kelley MD CHIEF COMPLAINT: Chest pain. HISTORY OF PRESENT ILLNESS: This is a 57-year-old male with a past medical history of CAD, AFib, CHF with ICD pacemaker, who presents to the emergency room having 2 falls and subsequently developing chest pain. The patient states he was in his usual state of health, he was walking outside, pushing a wheelbarrow yesterday, feeling fine. When he was walking back, he started feeling dizzy and he fell to the ground. He did feel like he is going to pass out, nauseated. He sat on the ground for a while, then got up, walked some more , got lightheaded again, got dizzy, and fell again. He landed on his left side and developed chest pain. He went in to the house. His girlfriend had to help him back in, continued to have dizziness and pain on the left side, took nitro with no relief. He denied any shortness of breath, no vomiting, no urinary symptoms, no headache, no fevers, no vision changes. No recent medication changes. He has chronic lower extremity swelling. No changes in his weight. It is unclear why he decided to come in this evening, but he came in to get further evaluation for the pain. He denied any loss of consciousness. He denies any black stools or bright red blood per rectum. He denies feeling getting shocked when he fell on his ICD. Otherwise, review of systems is negative. In the emergency room, the patient had labs and imaging. He was given a liter of fluid and referred to the hospitalist service for further evaluation. PAST MEDICAL HISTORY: 1. History of CHF, followed by Dr. Kelley, status post ICD pacemaker placement. 2. CKD type 2. 3. Diabetes. 4. Anemia. 5. Coronary artery disease status post stent. 6. Atrial fibrillation, on anticoagulation. 7. COPD, on room air. 8. Obstructive sleep apnea, not compliant on his CPAP. 9. Hyperlipidemia. 10. Irritable bowel syndrome. 11. History of ureteral calculus. MEDICATIONS: Per med rec, I did not confirm with the patient as he was not aware: 1. Triamterene/hydrochlorothiazide 37.5/25, 1 cap daily. 2. Brilinta 90 mg p.o. b.i.d. 3. Janumet 1 tab p.o. b.i.d. 4. Xarelto 20 mg daily. 5. Omeprazole 20 mg p.o. b.i.d. 6. Nitroglycerin 0.4 mg sublingual, q.5 minutes as needed. 7. Nasonex 50 mcg both nares daily. 8. Metoprolol succinate 25 mg daily. 9. Magnesium oxide 400 mg daily. 10. Lisinopril 2.5 mg daily in the morning. 11. Gabapentin 300 mg p.o. b.i.d. 12. Lasix 20 mg daily. 13. Cardizem 30 mg p.o. b.i.d. 14. Cetirizine 10 mg daily. 15. Symbicort 2 puffs inhaled b.i.d. 16. Atorvastatin 80 mg p.o. daily. 17. Aspirin 81 mg daily. 18. Albuterol 1 puff inhaled b.i.d. as needed. 19. Tylenol 1000 mg q.12 as needed. ALLERGIES: SHELL FISH, CONTRAST DYE. FAMILY HISTORY: Mother from old age, father is still alive. SOCIAL HISTORY: The patient is a remote smoker. He quit more than 20 years ago , but was smoking 5 packs per day for 20 years. No alcohol use or illicit drug use. He lives with his girlfriend. He is independent of his ADLs. 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 He states he does not yet have a healthcare proxy. Code status, full code. REVIEW OF SYSTEMS: A 14-point review of systems as mentioned in the HPI, otherwise negative. PHYSICAL EXAMINATION GENERAL: No acute distress, resting comfortably. VITAL SIGNS: Temp 98.2, pulse rate 64, respiratory rate 14, oxygen saturation 96 % on room air, blood pressure 112/69. HEENT: Head: Normocephalic. Pupils equal and reactive, anicteric. Oropharynx : Mucous membranes are moist. NECK: Supple. No lymphadenopathy. RESPIRATORY: Diminished breath sounds. Poor aeration. Prolonged expiratory phase. No wheezes, rhonchi or rales. CARDIAC: Irregularly irregular rate and rhythm with soft systolic murmur, heard best at left sternal base. ABDOMEN: Soft, nontender, nondistended. EXTREMITIES: Trace pretibial edema. NEUROLOGIC: Alert and oriented x3. No gross focal neurologic deficits. LABORATORY DATA: White count 10.4, hemoglobin 9.5, hematocrit 31, platelets 187, INR is 1.77. Sodium 135, potassium 5.9, chloride 109, bicarb 24, BUN 46, creatinine 2, lactic acid 2.1. Troponin is 0.02. BNP is 410. RADIOGRAPHIC DATA: Chest x-ray shows mild prominent interstitial edema. EKG shows AFib/flutter and V-paced complexes with a rate of 69. ASSESSMENT: This is a 57-year-old male with past medical history of chronic obstructive pulmonary disease, chronic kidney disease, and coronary artery disease, who presents to the emergency room with having chest pain after having 2 falls. 1. Chest pain. Assessment: The patient does have significant cardiac risk factors and a known history of coronary disease, however, I suspect this chest pain is related to musculoskeletal as it came on after he fell on his left side. Plan: We will place him on telemetry. We will start him on aspirin and rule out with troponins. We will check an echo as well. We will hold off on doing a stress test at this time, likely needs an outpatient stress test. 2. Fall. Assessment: The patient's presentation appears to be presyncopal. He does have an elevated BUN and creatinine, elevated potassium. I wonder if he is dry, though his chest x-ray findings show congestive heart failure, though he is not symptomatic at this time. His H and H appear stable as well. The question is also having the pacemaker interrogated. Plan: Admit him to telemetry, check an echo as above. I would have his pacemaker interrogated. We will check orthostatics, then iron studies and occult stool. I am going to hold his triamterene, hydrochlorothiazide, and Lasix for tomorrow morning and follow him closely with I's and O's. 3. Cardiac history. As mentioned, we will continue him on his cardiac medications with the exception of his Lasix and Dyazide. 4. Chronic obstructive pulmonary disease, stable. Continue with his inhaler regimen. 5. Gastroesophageal reflux disease. Continue his Prilosec. 6. Atrial fibrillation. Continue him on his Xarelto based on his creatinine clearance of 45. We will lower his Xarelto to 15 mg, may be able to go back up to his home dose if his kidney function improves. 7. Acute on chronic kidney injury. 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 Holding his diuretics, checking UA, and repeating his labs in the morning and renally dosing his medications. If no improvement, recommend further investigation. 8. FEN. Place the patient on diabetic diet. We will include Lispro sliding scale as well. 9. DVT prophylaxis: The patient scores high risk. He is on Xarelto. 10. Code status: Full code. TIME SPENT: Greater than 50 minutes were spent doing the history and physical, more than half the time was spent in direct patient contact. [id number]/CPS #: [id number] MTDD
[2017-11-05 06:25] LABS: ABS Basophils 0.1 10^3/ul (0-0.2); ABS Eosinophils 0.2 10^3/ul (0-0.6); ABS Lymphocytes 1.3 10^3/ul (1.0-4.8); ABS Monocytes 0.9 10^3/ul (0-0.8); ABS Neutrophils 7.4 10^3/ul (1.5-7.7); ABS Nucleated RBC 0 10^3/ul; Eosinophil % 1.8 % (0-6); Hematocrit 28 % (42-52); Hemoglobin 8.7 g/dl (14.0-18.0); Lymphocyte % 13.5 % (25-47); Mean Corpuscular HGB Conc 31 g/dl (31-36); Mean Corpuscular Hemoglobin 21 pg (27-31); Mean Corpuscular Volume 68 fL (80-94); Mean Platelet Volume 8.7 um3 (7.4-10.4); Nucleated Red Blood Cells % 0; Platelet Count 171 10^3/ul (150-450); Red Blood Count 4.17 10^6/ul (4.00-5.40); Red Cell Distribution Width 18 % (10.5-15); White Blood Count 9.8 10^3/ul (3.5-10.8)
[2017-11-05 06:33] LABS: EGFR Non-African American 36.7 (>60)
--- NOTE | 2017-11-05 07:38 | RAD ---
INDICATION: Chest pain COMPARISON: Most recent comparison chest x-rays dated May 17, 2017 TECHNIQUE: Single AP portable view of the chest was obtained. FINDINGS: Image quality is compromised due to the relative inferiority of a portable chest x-ray. Unchanged from the prior chest x-ray the left upper chest cardiac pacemaker with 2 leads overlying the heart. There is a mild degree of cardiomegaly. The pulmonary vasculature appears obscured and indistinct, slightly worse than the previous chest x-ray. There is at least left-sided costophrenic angle blunting. Visualized bones are normal for the patient's age. IMPRESSION: Chest x-ray findings are compatible with exacerbation of congestive heart failure possibly with a small left lung base pleural effusion. R0
[2017-11-05] MEDS: Mometasone/Formoter 200/5 MDI INH SCH ×2 (07:58→19:38)
[2017-11-05] MEDS ORDERED: Perflutren Lipid Microsphere* 3 ML VIAL ONE (08:34)
[2017-11-05] MEDS ORDERED: Rivaroxaban TAB(*) 20 MG TAB PO SCH (09:00)
[2017-11-05] MEDS ORDERED: Ticagrelor* 90 MG TAB PO SCH (09:00)
[2017-11-05] MEDS: Insulin LISPRO* 1 UNITS UNIT SUBCUT SCH ×4 (09:22→21:19)
[2017-11-05] MEDS: Metoprolol Succinate XL TAB* 25 MG PO SCH (09:23)
[2017-11-05] MEDS: Omeprazole CAP* 20 MG PO SCH ×2 (09:23→21:19)
[2017-11-05] MEDS: Atorvastatin* 80 MG TAB PO SCH (09:23)
[2017-11-05] MEDS: Gabapentin CAP(*) 300 MG PO SCH ×2 (09:23→21:18)
[2017-11-05] MEDS: Diltiazem TAB* 30 MG PO SCH ×2 (09:24→21:18)
[2017-11-05] MEDS: Magnesium Oxide TAB* 400 MG PO SCH (09:24)
[2017-11-05] MEDS: Rivaroxaban TAB(*) 15 MG PO SCH (09:28)
[2017-11-05] MEDS ORDERED: NS 0.9% 1000 ML* 1,000 ML IV SCH (12:45)
[2017-11-05] MEDS: Fluticasone NASAL SPRAY 50MCG* 16 gm SPRAY BTL BOTH NARES SCH (13:13)
[2017-11-05] MEDS: Ferrous Sulfate TAB* 325 MG PO SCH (13:14)
[2017-11-05] MEDS: Cetirizine* 10 MG TAB PO SCH (13:14)
--- NOTE | 2017-11-05 14:12 | ECHO ---
Patient: FERCHO FRIAS [facility] Rec#: [id number] : 1960 Date: 11/05/2017 Age: 57y Height: 177.8 cm / 70.0 in Weight: 95.25 kg / 209.9 lbs Sex: M BSA: 2.13 Room#: 439 Admit Date#: 11/04/2017 Type: Inpatient Referring: Fatimah Mac Reading: Sunni Anna MD Health Care Sanitary Technician: Leia Tejeda RDELISA CC: Erasmo Hill MD CC: Arnulfo Kelley MD Transthoracic Echocardiogram Indication: CP BP: 136/62 HR: 83 Rhythm: Paced Findings History: S/P AICD implant,ETHAN with CPAP rx,HLD,HTN,DM,former smoker, CAD with prior PCI,CHF,CKD,a-fib,COPD,anemia. Technical Comments: The study is technically limited due to the patient's history of COPD. Definity used to enhance images. Completed at 0921. Left Ventricle: The left ventricular chamber size is normal. Mild concentric left ventricular hypertrophy is observed. There is a focal wall motion abnormality present. The estimated ejection fraction is 50-55%. There is abnormal ventricular septal wall motion consistent with right ventricular pacemaker. The assessment of diastolic function is non-diagnostic. Left Atrium: The left atrium is moderately dilated. Right Ventricle: The right ventricle is mild to moderately dilated. The right ventricular global systolic function is moderately reduced. The septum has abnormal paradoxical motion consistent with RV pacemaker. A pacemaker wire is visualized in the right ventricle. Right Atrium: The right atrium is moderately dilated. A pacemaker wire is visualized in the right atrium. Aortic Valve: The aortic valve is trileaflet. Systolic excursion of the aortic valve is normal. Mild aortic cusp sclerosis is present. There is no evidence of aortic regurgitation. There is no evidence of aortic stenosis. Mitral Valve: The mitral valve leaflets are mildly thickened. There is a trace of mitral regurgitation. There is no evidence of mitral stenosis. Tricuspid Valve: The tricuspid valve leaflets are normal. There is mild to moderate tricuspid regurgitation. The right ventricular systolic pressure is estimated at 51 mmHg. There is evidence of moderate pulmonary hypertension. There is no tricuspid stenosis. Pulmonic Valve: The pulmonic valve appears normal. There is trace to mild pulmonic regurgitation. There is no pulmonic stenosis. Pericardium: A pericardial fat pad is visualized. Aorta: There is no dilatation of the ascending aorta. There is no dilatation of the aortic arch. There is no dilation of the aortic root. Pulmonary Artery: The main pulmonary artery appears normal. Venous: The venous system is not well visualized. Contrast: Definity was used to optimize study. A total of 4 ml used. Intravenous contrast was used to enhance endocardial border definition. Conclusions Mild concentric left ventricular hypertrophy is observed. There is abnormal ventricular septal wall motion consistent with right ventricular pacemaker. The estimated ejection fraction is 50-55%. The assessment of diastolic function is non-diagnostic. The right ventricle is mild to moderately dilated and right ventricular global systolic function is moderately reduced. A pacemaker wire is visualized in the right ventricle. The left atrium is moderately dilated. The right atrium is moderately dilated. Mild aortic cusp sclerosis is present with normal function. There is a trace of mitral regurgitation. There is mild to moderate tricuspid regurgitation. There is evidence of moderate pulmonary hypertension. The right ventricular systolic pressure is estimated at 51 mmHg. Compared with transesophogeal echo of 05/28/17, prior EF was 30-35%, valve function is stable, PA presure previously 46 mmHg. Septal dyskinesis was seen on prior study. Measurements Name Value Normal Range RVIDd (AP) 2D 3 cm (0.9 - 2.6) RVDdMajor (2D) 4.9 cm (2.2 - 4.4) RAd ISD 4CH 5.9 cm (3.4 - 4.9) RA (A4C)W 4.9 cm (2.9 - 4.6) IVSd (2D) 1.1 cm (0.6 - 1) LVPWd (2D) 1.2 cm (0.6 - 1) LVIDd (2D) 4.6 cm (3.6 - 5.4) LVIDs (2D) 4.4 cm - LV FS (2D) 5 % (25 - 45) Aortic Annulus 1.9 cm (1.4 - 2.6) Ao root diameter (2D) 3 cm (2.1 - 3.5) Ascending Ao 2.9 cm (2.1 - 3.4) Aortic arch 2.8 cm (1.8 - 3.4) Descending Ao 0.7 cm - LA dimension (AP) 2D 4.4 cm (2.3 - 3.8) LAd ISD 4CH 6.8 cm (2.9 - 5.3) LA ISD 4CH W 4.4 cm (2.5 - 4.5) Name Value Normal Range LA ESV SP 4CH (A/L) 87 ml - LA ESV SP 2CH (A/L) 86 ml - LA ESV BP (A/L) 90 ml - LA ESV BP (A/L) index 42.33 ml/m2 - LA ESV SP 4CH (MOD) 82 ml - LA ESV SP 2CH (MOD) 82 ml - Name Value Normal Range MV E-wave Vmax 1.2 m/sec - MV deceleration time 200 msec - LV septal e' Vmax 0.08 m/sec - LV lateral e' Vmax 0.13 m/sec - LV E:e' septal ratio 15 ratio - LV E:e' lateral ratio 9.23 ratio - Name Value Normal Range AV Vmax 1.3 m/sec - AV VTI 21.2 cm - AV peak gradient 6.31 mmHg - AV mean gradient 3.05 mmHg - LVOT Vmax 0.8 m/sec - LVOT VTI 14.1 cm - LVOT peak gradient 2.6 mmHg - LVOT mean gradient 1.25 mmHg - Name Value Normal Range TR Vmax 3.2 m/sec - TR peak gradient 43 mmHg - RAP 8 mmHg - RVSP 51 mmHg - Name Value Normal Range PV Vmax 0.5 m/sec - PV peak gradient 1.21 mmHg -
[2017-11-05] MEDS: traMADol TAB* 50 MG PO PRN (15:42)
--- NOTE | 2017-11-05 16:42 | PN ---
Subjective Date of Service: 11/05/17 Interval History: Patient state he is feeling nauseated and has been vomiting up phlegm. Patient states he has been feeling congested with post-nasal drip for approximately 2 days now. Patient states he drinks lots of water, approximately 6 small water bottles daily. Patient states his urine output has increased. Patient has been coughing but has no hemoptysis. Patient has intermittent left sided chest pain which is reproducible with palpation and movement of his left arm. Patient denies F/V, abdominal pain, diarrhea, SOB, or other pain. Patient states he always has swelling in his legs which is unchanged. Family History: Unchanged from Admission Social History: Unchanged from Admission Past Medical History: Unchanged from Admission Objective Active Medications: Acetaminophen (Tylenol Tab*) 650 mg PO Q4H PRN PRN Reason: FEVER/PAIN Last Admin: 11/05/17 15:27 Dose: 650 mg Al Hydrox/Mg Hydrox/Simethicone (Maalox Plus*) 30 ml PO Q6H PRN PRN Reason: INDIGESTION Albuterol (Ventolin Hfa Inhaler*) 1 puff INH BID PRN PRN Reason: WHEEZING Aspirin (Aspirin Ec Tab*) 81 mg PO DAILY [facility] Last Admin: 11/05/17 09:23 Dose: 81 mg Atorvastatin Calcium (Lipitor*) 80 mg PO DAILY [facility] Last Admin: 11/05/17 09:23 Dose: 80 mg Cetirizine HCl (Zyrtec*) 10 mg PO DAILY [facility]; Protocol Last Admin: 11/05/17 13:14 Dose: 10 mg Dextrose (D50w Syringe 50 Ml*) 12.5 gm IV PUSH .FOR FS < 60 - SS PRN PRN Reason: FS < 60 Diltiazem HCl (Cardizem Tab*) 30 mg PO BID [facility] Last Admin: 11/05/17 09:24 Dose: 30 mg Docusate Sodium (Colace Cap*) 100 mg PO BID PRN PRN Reason: CONSTIPATION Ferrous Sulfate (Ferrous Sulfate Tab*) 325 mg PO EVERY OTHER DAY [facility] Last Admin: 11/05/17 13:14 Dose: 325 mg Fluticasone Propionate (Flonase Nasal [place] 50mcg*) 2 spray BOTH NARES DAILY [facility] Last Admin: 11/05/17 13:13 Dose: 2 spray Gabapentin (Neurontin Cap(*)) 300 mg PO BID [facility] Last Admin: 11/05/17 09:23 Dose: 300 mg Sodium Chloride (Ns 0.9% 1000 Ml*) 1,000 mls @ 100 mls/hr IV PER RATE [facility] Stop: 11/05/17 22:44 Last Admin: 11/05/17 13:14 Dose: 100 mls/hr Insulin Human Lispro (Humalog*) 0 units SUBCUT AC [facility]; Protocol Last Admin: 11/05/17 13:13 Dose: 4 units Magnesium Oxide (Magox 400 Tab*) 400 mg PO DAILY [facility] Last Admin: 11/05/17 09:24 Dose: 400 mg Metoprolol Succinate (Toprol Xl Tab*) 25 mg PO DAILY [facility] Last Admin: 11/05/17 09:23 Dose: 25 mg Mometasone Furoate/Formoterol Fumar (Dulera 200/5 Mdi*) 2 puff INH BID [facility]; Protocol Last Admin: 11/05/17 07:58 Dose: 2 puff Omeprazole (Prilosec Cap*) 20 mg PO BID [facility] Last Admin: 11/05/17 09:23 Dose: 20 mg Ondansetron HCl (Zofran Inj*) 4 mg IV Q4H PRN PRN Reason: NAUSEA/VOMITING Last Admin: 11/05/17 04:15 Dose: 4 mg Rivaroxaban (Xarelto(*)) 15 mg PO DAILY [facility] Last Admin: 11/05/17 09:28 Dose: 15 mg Senna (Senokot Tab*) 1 tab PO BID PRN PRN Reason: CONSTIPATION Tramadol HCl (Ultram*) 50 mg PO Q12H PRN PRN Reason: PAIN Last Admin: 11/05/17 15:42 Dose: 50 mg Vital Signs - 8 hr 11/05/17 11/05/17 11/05/17 09:23 11:29 15:42 Temperature 99.6 F Pulse Rate 81 Respiratory 20 18 14 Rate Blood Pressure 129/74 (mmHg) O2 Sat by Pulse 90 Oximetry Oxygen Devices in Use Now: Nasal Cannula Appearance: Patient is a 57yo male who appears stated age and is sitting in the bed in NAD. Eyes: No Scleral Icterus, PERRLA Ears/Nose/Mouth/Throat: NL Teeth, Lips, Gums, Clear Oropharnyx, Mucous Membranes Moist Neck: NL Appearance and Movements; NL JVP, Trachea Midline Respiratory: Symmetrical Chest Expansion and Respiratory Effort, Clear to Auscultation Cardiovascular: NL Sounds; No Murmurs; No JVD, RRR, - - 1+ edema in B/L LE. Left sided chest pain reproducible with palpation. Abdominal: No Hepatosplenomegaly, - - Hard non-teder abdomen without hepatojugular reflux. Lymphatic: No Cervical Adenopathy Extremities: No Clubbing, Cyanosis Skin: No Rash or Ulcers, No Nodules or Sclerosis Neurological: Alert and Oriented x 3, NL Sensation, NL Muscle Strength and Tone , - - CN II-XII intact. Result Diagrams: 11/05/17 05:38 11/05/17 05:38 Assess/Plan/Problems-Billing Assessment: Patient is a 57yo male with a PMH for CHF, COPD, - Patient Problems (1) Pre-syncope Current Visit: Yes Status: Acute Comment: - Presyncope x2 with falls. No LOC. - Chest Pain developed after second fall on his left side. Pain Reproducible with palpation - Orthostatic normal - ICD interrogation unremarkable. - Appears dry on exam. CARLOS present, possibly dry, will trial fluid - Had URI for 2 days and increased urine output possibly from hyperglycemia - Trops normal. Will consult cardiology with consideration for timing of stress test. (2) Afib Current Visit: No Status: Acute Code(s): I48.91 - UNSPECIFIED ATRIAL FIBRILLATION SNOMED Code(s): 38721540 Comment: - Rate control with metoprolol - Xarelto at 15mg daily (3) CKD (chronic kidney disease) Current Visit: No Status: Acute Code(s): N18.9 - CHRONIC KIDNEY DISEASE, UNSPECIFIED SNOMED Code(s): 192262057 Comment: - With CARLOS. Trend after fluid. - Possibly prerenal. - Hold diuretics and lisinopril. (4) Hypertension Current Visit: No Status: Acute Code(s): I10 - ESSENTIAL (PRIMARY) HYPERTENSION SNOMED Code(s): 50784943 Comment: - Borderline hypotensive on admission. - Increased with fluid. - Currently normotensive. (5) CAD (coronary artery disease) Current Visit: No Status: Chronic Priority: Low Code(s): I25.10 - ATHSCL HEART DISEASE OF [place] CORONARY ARTERY W/O ANG PCTRS SNOMED Code(s): 24492620 Comment: - Likely non-cardiac origin of CP. - Stress test this year with no ischemia - Continue ASA and Statin - Cardiology consult. (6) Cardiomyopathy Current Visit: No Status: Chronic Priority: Medium Code(s): I42.9 - CARDIOMYOPATHY, UNSPECIFIED SNOMED Code(s): 94899077 Comment: - Echo Stable to improved (7) Diabetes Current Visit: No Status: Chronic Priority: High Code(s): E11.9 - TYPE 2 DIABETES MELLITUS WITHOUT COMPLICATIONS SNOMED Code(s): 32821695 Comment: - SSI - Resume oral medication at D/C (8) History of COPD Current Visit: No Status: Chronic Priority: Low Code(s): Z87.09 - PERSONAL HISTORY OF OTHER DISEASES OF THE RESPIRATORY SYSTEM SNOMED Code(s): 539099877 Comment: - Not in exacerbation (9) Full code status Current Visit: No Status: Acute Priority: Medium Onset Date: 04/30/14 Code(s): Z78.9 - OTHER SPECIFIED HEALTH STATUS SNOMED Code(s): 447899888 Status and Disposition: Inpatient for full evaluation of presyncope.
[2017-11-06] MEDS: Acetaminophen TAB* 325 MG PO PRN ×2 (00:04→19:35)
[2017-11-06] MEDS: traMADol TAB* 50 MG PO PRN (03:55)
[2017-11-06 07:43] LABS: ABS Basophils 0.1 10^3/ul (0-0.2); ABS Eosinophils 0.1 10^3/ul (0-0.6); ABS Lymphocytes 1.2 10^3/ul (1.0-4.8); ABS Monocytes 0.7 10^3/ul (0-0.8); ABS Neutrophils 8.1 10^3/ul (1.5-7.7); ABS Nucleated RBC 0 10^3/ul; Eosinophil % 0.9 % (0-6); Hematocrit 33 % (42-52); Hemoglobin 9.9 g/dl (14.0-18.0); Lymphocyte % 11.9 % (25-47); Mean Corpuscular HGB Conc 30 g/dl (31-36); Mean Corpuscular Hemoglobin 21 pg (27-31); Mean Corpuscular Volume 68 fL (80-94); Mean Platelet Volume 8.7 um3 (7.4-10.4); Nucleated Red Blood Cells % 0; Platelet Count 195 10^3/ul (150-450); Red Blood Count 4.81 10^6/ul (4.00-5.40); Red Cell Distribution Width 18 % (10.5-15); White Blood Count 10.2 10^3/ul (3.5-10.8)
[2017-11-06 07:45] LABS: EGFR Non-African American 38.1 (>60)
[2017-11-06] MEDS ORDERED: Magnesium Sulfate 2 GM IV* 2 GM/50 ML BAG IVPB ONE (07:47)
[2017-11-06] MEDS ORDERED: Calcium Gluconate INJ* 1 GM in NS 0.9% 50 ML* 50 ML IVPB ONE (08:00)
[2017-11-06] MEDS ORDERED: Furosemide IV* 10 MG/ML 2 ML VIAL (20 MG) IV SLOW PU ONE (08:00)
[2017-11-06] MEDS ORDERED: Sodium Polystyrene ORAL.SOL* 15 GM/60 ML BTL PO ONE (08:00)
[2017-11-06] MEDS ORDERED: Dextrose 50% Syringe 50 ML* 25 GM/50 ML SYRINGE IV PUSH PRN (08:02)
[2017-11-06] MEDS ORDERED: Insulin REGULAR(*) 1 UNITS UNIT IV PUSH ONE (08:04)
[2017-11-06] MEDS: Mometasone/Formoter 200/5 MDI INH SCH ×2 (08:04→20:15)
[2017-11-06] MEDS ORDERED: oxyCODONE TAB* 5 MG TAB PO PRN (08:19)
[2017-11-06] MEDS: Insulin LISPRO* 1 UNITS UNIT SUBCUT SCH ×7 (08:49→21:39)
[2017-11-06] MEDS: Magnesium Oxide TAB* 400 MG PO SCH (09:01)
[2017-11-06] MEDS: Metoprolol Succinate XL TAB* 25 MG PO SCH (09:01)
[2017-11-06] MEDS: Atorvastatin* 80 MG TAB PO SCH (09:01)
[2017-11-06] MEDS: Rivaroxaban TAB(*) 15 MG PO SCH (09:01)
[2017-11-06] MEDS: Gabapentin CAP(*) 300 MG PO SCH ×2 (09:01→21:39)
[2017-11-06] MEDS: Diltiazem TAB* 30 MG PO SCH (09:01)
[2017-11-06] MEDS: Fluticasone NASAL SPRAY 50MCG* 16 gm SPRAY BTL BOTH NARES SCH (09:02)
[2017-11-06] MEDS: Aspirin EC TAB* 81 MG TAB.EC PO SCH (09:02)
[2017-11-06] MEDS: Cetirizine* 10 MG TAB PO SCH (09:02)
[2017-11-06] MEDS: Omeprazole CAP* 20 MG PO SCH ×2 (09:02→21:39)
--- NOTE | 2017-11-06 16:11 | PN ---
Subjective Date of Service: 11/06/17 Interval History: Patient is feeling well. Needs O2 intermittently as at home. Denies SOB. Persistent CP which is reproducible with palpation and is pleuritic. Patient denies any nausea with CP. Intermittent vomiting due to post-nasal drip. Symptoms improving with treatment. Patient denies F/C, abdominal pain, dysuria, palpitations, dizziness. Patient states he has pain with movement in right shoulder. Family History: Unchanged from Admission Social History: Unchanged from Admission Past Medical History: Unchanged from Admission Objective Active Medications: Acetaminophen (Tylenol Tab*) 650 mg PO Q4H PRN PRN Reason: FEVER/PAIN Last Admin: 11/06/17 00:04 Dose: 650 mg Al Hydrox/Mg Hydrox/Simethicone (Maalox Plus*) 30 ml PO Q6H PRN PRN Reason: INDIGESTION Albuterol (Ventolin Hfa Inhaler*) 1 puff INH BID PRN PRN Reason: WHEEZING Aspirin (Aspirin Ec Tab*) 81 mg PO DAILY [facility] Last Admin: 11/06/17 09:02 Dose: 81 mg Atorvastatin Calcium (Lipitor*) 80 mg PO DAILY [facility] Last Admin: 11/06/17 09:01 Dose: 80 mg Cetirizine HCl (Zyrtec*) 10 mg PO DAILY [facility]; Protocol Last Admin: 11/06/17 09:02 Dose: 10 mg Dextrose (D50w Syringe 50 Ml*) 12.5 gm IV PUSH .FOR FS < 60 - SS PRN PRN Reason: FS < 60 Dextrose (D50w Syringe 50 Ml*) 25 gm IV PUSH ONCE PRN PRN Reason: FS < 60 Diltiazem HCl (Cardizem Tab*) 30 mg PO BID [facility] Last Admin: 11/06/17 09:01 Dose: 30 mg Docusate Sodium (Colace Cap*) 100 mg PO BID PRN PRN Reason: CONSTIPATION Ferrous Sulfate (Ferrous Sulfate Tab*) 325 mg PO EVERY OTHER DAY [facility] Last Admin: 11/05/17 13:14 Dose: 325 mg Fluticasone Propionate (Flonase Nasal [place] 50mcg*) 2 spray BOTH NARES DAILY [facility] Last Admin: 11/06/17 09:02 Dose: 2 spray Gabapentin (Neurontin Cap(*)) 300 mg PO BID [facility] Last Admin: 11/06/17 09:01 Dose: 300 mg Insulin Human Lispro (Humalog*) 0 units SUBCUT AC [facility]; Protocol Last Admin: 11/06/17 12:45 Dose: 2 units Insulin Human Lispro (Humalog*) 0 units SUBCUT ACHS [facility]; Protocol Last Admin: 11/06/17 12:45 Dose: 6 units Magnesium Oxide (Magox 400 Tab*) 400 mg PO DAILY [facility] Last Admin: 11/06/17 09:01 Dose: 400 mg Metoprolol Succinate (Toprol Xl Tab*) 25 mg PO DAILY [facility] Last Admin: 11/06/17 09:01 Dose: 25 mg Mometasone Furoate/Formoterol Fumar (Dulera 200/5 Mdi*) 2 puff INH BID [facility]; Protocol Last Admin: 11/06/17 08:04 Dose: 2 puff Omeprazole (Prilosec Cap*) 20 mg PO BID [facility] Last Admin: 11/06/17 09:02 Dose: 20 mg Ondansetron HCl (Zofran Inj*) 4 mg IV Q4H PRN PRN Reason: NAUSEA/VOMITING Last Admin: 11/05/17 04:15 Dose: 4 mg Oxycodone HCl (Roxycodone Tab*) 5 mg PO Q6H PRN PRN Reason: PAIN Rivaroxaban (Xarelto(*)) 15 mg PO DAILY [facility] Last Admin: 11/06/17 09:01 Dose: 15 mg Senna (Senokot Tab*) 1 tab PO BID PRN PRN Reason: CONSTIPATION Tramadol HCl (Ultram*) 50 mg PO Q12H PRN PRN Reason: PAIN Last Admin: 11/06/17 03:55 Dose: 50 mg Vital Signs - 8 hr 11/06/17 11/06/17 11/06/17 08:48 09:01 11:33 Temperature 97.3 F 97.3 F Pulse Rate 73 74 Respiratory 15 16 20 Rate Blood Pressure 134/76 127/74 (mmHg) O2 Sat by Pulse 93 93 Oximetry 11/06/17 15:31 Temperature Pulse Rate Respiratory 18 Rate Blood Pressure (mmHg) O2 Sat by Pulse Oximetry Oxygen Devices in Use Now: None Appearance: Patient is a 57yo male who appears older than stated age and is sitting in the bed in [facility]. Eyes: No Scleral Icterus, PERRLA Ears/Nose/Mouth/Throat: NL Teeth, Lips, Gums, Clear Oropharnyx, Mucous Membranes Moist Neck: NL Appearance and Movements; NL JVP, Trachea Midline Respiratory: Symmetrical Chest Expansion and Respiratory Effort, Clear to Auscultation Cardiovascular: NL Sounds; No Murmurs; No JVD, RRR, - - Trace edema. Abdominal: No Hepatosplenomegaly, - - Hard abdomen without tenderness to palpation. Lymphatic: No Cervical Adenopathy Extremities: No Clubbing, Cyanosis Skin: No Rash or Ulcers, No Nodules or Sclerosis Neurological: Alert and Oriented x 3, NL Sensation, NL Muscle Strength and Tone , - - CN II-XII intact. Lines/Tubes/Other Access: Clean, Dry and Intact Endotracheal Tube Result Diagrams: 11/06/17 07:07 11/06/17 07:07 Microbiology and Other Data: Microbiology 11/06/17 10:20 Stool Occult Blood (KAROL) - Final Stool 11/05/17 01:40 Urine Culture - Final Urine Kavya Albicans Assess/Plan/Problems-Billing Assessment: Patient is a 57yo male with a PMH for CHF, COPD, - Patient Problems (1) Pre-syncope Current Visit: Yes Status: Acute Comment: - Presyncope x2 with falls. No LOC. - Chest Pain developed after second fall on his left side. Pain Reproducible with palpation - Orthostatic normal - ICD interrogation unremarkable except one episode of V-tach versus afib with aberrency. - Appears dry on exam initially. Now likely euvolemic - Had URI for 2 days and increased urine output possibly from hyperglycemia - Trops normal. - Stress test tomorrow per cardiology to assess for ischemia possibly causing V- Tach - On anticoagulation. Low risk of PE. Will not get D-Dimer at this time. (2) Hyperkalemia Current Visit: Yes Status: Acute Code(s): E87.5 - HYPERKALEMIA SNOMED Code (s): 90526571 Comment: - Likely due to CARLOS - Improved with therapy from 6.9-5.7. Continue to trend. - No peaked T-Waves or other EKG changes (3) Afib Current Visit: No Status: Acute Code(s): I48.91 - UNSPECIFIED ATRIAL FIBRILLATION SNOMED Code(s): 13887619 Comment: - Rate control with metoprolol - Xarelto at 15mg daily (4) CKD (chronic kidney disease) Current Visit: No Status: Acute Code(s): N18.9 - CHRONIC KIDNEY DISEASE, UNSPECIFIED SNOMED Code(s): 227583303 Comment: - With CARLOS. Trending down - Hold diuretics and lisinopril. - Possible cause of hyperkalemia (5) Hypertension Current Visit: No Status: Acute Code(s): I10 - ESSENTIAL (PRIMARY) HYPERTENSION SNOMED Code(s): 84444908 Comment: - Borderline hypotensive on admission. - Increased with fluid. - Currently normotensive. (6) CAD (coronary artery disease) Current Visit: No Status: Chronic Priority: Low Code(s): I25.10 - ATHSCL HEART DISEASE OF [place] CORONARY ARTERY W/O ANG PCTRS SNOMED Code(s): 52150810 Comment: - Likely non-cardiac origin of CP. - Stress test this year with no ischemia - Continue ASA and Statin - Cardiology consult appreciated - Repeat stress test tomorrow. (7) Cardiomyopathy Current Visit: No Status: Chronic Priority: Medium Code(s): I42.9 - CARDIOMYOPATHY, UNSPECIFIED SNOMED Code(s): 85591047 Comment: - Echo Stable to improved (8) Diabetes Current Visit: No Status: Chronic Priority: High Code(s): E11.9 - TYPE 2 DIABETES MELLITUS WITHOUT COMPLICATIONS SNOMED Code(s): 57619995 Comment: - SSI - Resume oral medication at D/C (9) History of COPD Current Visit: No Status: Chronic Priority: Low Code(s): Z87.09 - PERSONAL HISTORY OF OTHER DISEASES OF THE RESPIRATORY SYSTEM SNOMED Code(s): 493895856 Comment: - Not in exacerbation (10) Full code status Current Visit: No Status: Acute Priority: Medium Onset Date: 04/30/14 Code(s): Z78.9 - OTHER SPECIFIED HEALTH STATUS SNOMED Code(s): 519865611 Status and Disposition: Inpatient for full evaluation of presyncope.
--- NOTE | 2017-11-06 17:46 | RAD ---
CLINICAL HISTORY: Abdominal Distention COMPARISON: May 21, 2017 TECHNIQUE: Multiple contiguous axial CT scans were obtained of the abdomen and pelvis, without intravenous contrast enhancement. Coronal and sagittal multiplanar reformations are submitted for review. Oral contrast was not administered. FINDINGS: Evaluation is limited due to the lack of intravenous contrast. This limits evaluation of the solid organs and vasculature. LUNG BASES: There is moderate left pleural effusion. LIVER: The liver is mildly homogeneously slightly enlarged. BILE DUCTS: There is no intrahepatic or extrahepatic biliary dilatation. GALLBLADDER: The gallbladder is incompletely distended. There is gallbladder wall thickening which is likely an artifact of incomplete distention. PANCREAS: The pancreas is normal, without mass or ductal dilatation. SPLEEN: The spleen is mildly enlarged. UPPER GI TRACT: Evaluation of the gastrointestinal tract is limited by incomplete gastric distention. The upper GI tract is unremarkable. SMALL BOWEL AND MESENTERY: The small bowel is normal in contour, course, and caliber. There is no obstruction or dilatation. COLON: The colon is normal in contour, course, caliber. There is no pericolonic inflammatory change. ADRENALS: Normal bilaterally. KIDNEYS: The kidneys are normal in shape, size, contour, and axis. There is no hydronephrosis or nephrolithiasis. BLADDER: The bladder is smooth in contour. PELVIC ORGANS: The prostate gland is normal. The seminal vesicles are symmetric. AORTA: The aorta is normal. IVC: Unremarkable LYMPH NODES: There are multiple small lymph nodes of the root of the small bowel mesentery without lymphadenopathy by size criteria. This is similar to the previous examination. ABDOMINAL WALL: There is a fat-containing right inguinal hernia. BONES AND SOFT TISSUES: There are mild diffuse degenerative changes. OTHER: There is a small to moderate amount ascites. IMPRESSION: 1. HEPATOSPLENOMEGALY. 2. RIGHT PLEURAL EFFUSION. 3. ASCITES. 4. THE GALLBLADDER IS INCOMPLETELY DISTENDED. THERE IS NO LATERAL THICKENING WHICH IS LIKELY AN ARTIFACT OF INCOMPLETE DISTENTION. IF THERE IS CLINICAL CONCERN FOR PRIMARY BLADDER PATHOLOGY, CONSIDER FURTHER EVALUATION WITH ULTRASOUND OF THE RIGHT UPPER QUADRANT WHEN THE PATIENT IS N.P.O.
[2017-11-06 21:27] LABS: EGFR Non-African American 36.9 (>60)
--- NOTE | 2017-11-06 21:41 | CONS ---
CC: Dr. German; CHERELLE Coffey; Tiny Knight NP * CARDIOLOGY EVALUATION/CONSULTATION: DATE OF CONSULT: 11/06/17 PATIENT OF: Dr. German. CONSULTING PHYSICIAN: CHERELLE Coffey REASON FOR EVALUATION: Near syncope, chest pain. HISTORY OF PRESENT ILLNESS: This is a 57-year-old gentleman with a history of cardiomyopathy, CAD, AFib, CHF with ICD. He was in his usual state of health until about 2 weeks ago when he noticed increased abdominal girth. He does not know whether his weight changed. He said he was walking across the yard with a wheelbarrow that was empty on level ground. He said he does that regularly and walks a mile at a time with it most days. He said he was towards the end of that walk and he felt weak and collapsed to the ground. He denies any chest pain or palpitations. He said that he does not think he lost consciousness. He remembers hitting the ground. He got up and pushed the wheelbarrow a little further and had another episode like that. He waited for his girlfriend who came out and helped him into the house. He rested for about an hour. He did notice that the left side of his chest was sore and because of the symptoms, he came to the emergency room. He continues to have tenderness and chest pain worse with inspiration on his left side. He denies any palpitations. No orthopnea. He uses 2 pillows at night for comfort. He does have edema, which is chronic and has increased abdominal girth over the last 2 weeks. PAST MEDICAL HISTORY: Includes hypertension; diabetes; tobacco use, discontinued 10 years ago; COPD; renal insufficiency; hyperkalemia on this admission; anemia; coronary artery disease, status post stenting x3 according to the patient; AFib, on anticoagulation; obstructive sleep apnea, noncompliant with CPAP; hyperlipidemia. PAST SURGICAL HISTORY: Includes appendectomy. ALLERGIES: Include SHELLFISH and CONTRAST. FAMILY HISTORY: Includes mother in motor vehicle accident. His father is alive in his 70s with CAD. He has 3 brothers and 2 sisters with no premature coronary artery disease. SOCIAL HISTORY: He denies alcohol use. He has 1 cup of coffee a day. He is a . He has no children. He lives with his girlfriend. 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 REVIEW OF SYSTEMS: Positive for nonproductive cough and chest pain since admission as noted above. He denies fever, chills, sweats, nausea, vomiting, diarrhea, strokes, or mini strokes. PHYSICAL EXAM: He is a well-developed, well-nourished gentleman, overweight, in no apparent distress, alert and oriented x3. No significant JVD. Carotids 2 + without bruits. No cervical adenopathy. No thyromegaly. Extraocular muscles intact. Sclerae anicteric. Cardiac Exam: S1 with a widely split S2. Chest is clear after coughing. No CVAT. Abdomen: Bowel sounds present. Nontender, distended. Femoral pulses intact without bruits. Distal pulses intact with 2+ edema in the lower extremities bilaterally. Negative Homans sign. Motor strength 5/5 bilaterally. Deep tendon reflexes 2/4. Alert and oriented x3. DIAGNOSTIC STUDIES: EKG from yesterday revealed AFib with low voltage, old inferior WV, poor R-wave progression, possible anterior WV, and no significant change on today's EKG. His pacemaker interrogation revealed some nonsustained VT, but his detection range is 190, his ATR mode which is 170. He did have an echocardiogram performed on 11/05/17, which revealed mild concentric LVH, abnormal septal motion consistent with RV pacer, EF of 50% to 55 %, nondiagnostic diastolic function, [id number] RV enlargement with moderate RV function reduction, moderate biatrial enlargement, aortic sclerosis , trace MR, mild- to-moderate TR, moderate pulmonary hypertension, PA pressure 51. Compared with a ROSELIA of 05/28/17, EF on the prior study was 30% to 35%, PA pressure was previously 46, and septal dyskinesis was seen on the previous. IMPRESSION AND PLAN: My impression is that Mr. Pratt has a history of cardiomyopathy and an ICD, history of coronary artery disease, atrial fibrillation, congestive heart failure, diabetes, renal insufficiency and now presents with two near syncopal episodes of unclear etiology. The [employer] system is unavailable at present, but his potassiums have been elevated. The etiology of his symptoms is unclear, but could be perhaps related to ischemia with exertion and/or arrhythmia with exertion. The arrhythmia may be below the detection level for his defibrillator. For the time being, I would recommend the following: I would suggest consideration of reprogramming his pacemaker defibrillator to a lower detection rate and monitoring perhaps from 150s to the 190s and no treatment on this to see if we can detect ventricular arrhythmias. I would consider an event monitor. He is to have a stress nuclear to evaluate for ischemia and for arrhythmia with exercise. I would consider further evaluation of his abdominal distention as per Socrates Nolan. It does appear that mild volume overload might benefit from gentle diuresis. We will try to keep his potassium in a normal range. He is to follow up with Dr. German as an outpatient. Further recommendations will depend on his clinical course. [id number]/[facility] #: [id number] ALBINO
[2017-11-07] MEDS: Mometasone/Formoter 200/5 MDI INH SCH ×2 (07:33→20:33)
[2017-11-07] MEDS: Insulin LISPRO* 1 UNITS UNIT SUBCUT SCH ×7 (08:56→21:35)
[2017-11-07] MEDS ORDERED: Furosemide TAB* 20 MG PO SCH (09:00)
[2017-11-07] MEDS ORDERED: Pneumococcal *Vac Polyvalent 0.5 ML VIAL IM ONE (09:00)
[2017-11-07] MEDS: Omeprazole CAP* 20 MG PO SCH ×2 (10:31→20:40)
[2017-11-07] MEDS: Magnesium Oxide TAB* 400 MG PO SCH (10:31)
[2017-11-07] MEDS: Atorvastatin* 80 MG TAB PO SCH (10:31)
[2017-11-07] MEDS: Gabapentin CAP(*) 300 MG PO SCH ×2 (10:31→20:39)
[2017-11-07] MEDS: Fluticasone NASAL SPRAY 50MCG* 16 gm SPRAY BTL BOTH NARES SCH (10:31)
[2017-11-07] MEDS: Rivaroxaban TAB(*) 15 MG PO SCH (10:31)
[2017-11-07] MEDS: Aspirin EC TAB* 81 MG TAB.EC PO SCH (10:31)
[2017-11-07] MEDS: Cetirizine* 10 MG TAB PO SCH (10:32)
[2017-11-07] MEDS: Ferrous Sulfate TAB* 325 MG PO SCH (10:32)
--- NOTE | 2017-11-07 10:48 | RAD ---
Edited for charges. Indication: Coronary artery disease. Myocardial perfusion scan was performed utilizing 1 day protocol. Rest myocardial perfusion was performed after intravenous injection of 10.2 mCi of technetium 99m tetrofosmin. Pharmacological stress was performed and 25.8 mCi of technetium 90 9M tetrofosmin was injected for the stress portion of the study. The left ventricle is mildly enlarged. There may be a tiny photopenic area in the anterior septal region of the left ventricle which appears to be fixed on both the stress and rest images. These tomographic images do not demonstrate definite reversible defect and this likely represents artifact. Ejection fraction could not be calculated due to arrhythmia. IMPRESSION: There is ventriculomegaly noted. The tomographic images demonstrates no evidence of reversible change. There may be some evidence of reversible change is identified on the polar images however this is not confirmed on the tomographic images. This may be artifactual. ASSESSMENT: Low risk MTDD
[2017-11-07] MEDS: Metoprolol Succinate XL TAB* 25 MG PO SCH (11:10)
[2017-11-07 11:40] LABS: ABS Basophils 0.1 10^3/ul (0-0.2); ABS Eosinophils 0.1 10^3/ul (0-0.6); ABS Lymphocytes 0.8 10^3/ul (1.0-4.8); ABS Monocytes 0.6 10^3/ul (0-0.8); ABS Neutrophils 6.6 10^3/ul (1.5-7.7); ABS Nucleated RBC 0 10^3/ul; Eosinophil % 1.1 % (0-6); Hematocrit 29 % (42-52); Hemoglobin 8.8 g/dl (14.0-18.0); Lymphocyte % 10.3 % (25-47); Mean Corpuscular HGB Conc 31 g/dl (31-36); Mean Corpuscular Hemoglobin 20 pg (27-31); Mean Corpuscular Volume 67 fL (80-94); Mean Platelet Volume 8.7 um3 (7.4-10.4); Nucleated Red Blood Cells % 0.1; Platelet Count 172 10^3/ul (150-450); Red Blood Count 4.32 10^6/ul (4.00-5.40); Red Cell Distribution Width 18 % (10.5-15); White Blood Count 8.2 10^3/ul (3.5-10.8)
[2017-11-07 12:05] LABS: EGFR Non-African American 42.6 (>60)
[2017-11-07] MEDS ORDERED: Furosemide IV* 10 MG/ML 2 ML VIAL (20 MG) IV SLOW PU ONE (12:57)
[2017-11-07] MEDS ORDERED: Magnesium Sulfate 2 GM IV* 2 GM/50 ML BAG IVPB ONE (12:57)
[2017-11-07] MEDS ORDERED: Magnesium Sulfate IV* 2 GM in NS 0.9% 100 ML* 100 ML IVPB ONE ×2 (13:45→14:00)
[2017-11-07] MEDS ORDERED: Regadenoson* 0.4 MG/5 ML SYRINGE ONE (14:31)
[2017-11-07] MEDS: Iron Sucrose* 200 MG in NS 0.9% 100 ML* 100 ML IVPB SCH (14:50)
--- NOTE | 2017-11-07 17:09 | PN ---
Subjective Date of Service: 11/07/17 Interval History: Patient today states that he has been dizzy at rest and standing. Patient johnot further elaborate on this. Patient denies F/C, N/V, abdominal pain, diarrhea, CP, SOB or other pain. Patient has slight SOB with exertion and this was provoked with chemical stress test. Family History: Unchanged from Admission Social History: Unchanged from Admission Past Medical History: Unchanged from Admission Objective Active Medications: Acetaminophen (Tylenol Tab*) 650 mg PO Q4H PRN PRN Reason: FEVER/PAIN Last Admin: 11/06/17 19:35 Dose: 650 mg Al Hydrox/Mg Hydrox/Simethicone (Maalox Plus*) 30 ml PO Q6H PRN PRN Reason: INDIGESTION Albuterol (Ventolin Hfa Inhaler*) 1 puff INH BID PRN PRN Reason: WHEEZING Aspirin (Aspirin Ec Tab*) 81 mg PO DAILY [facility] Last Admin: 11/07/17 10:31 Dose: 81 mg Atorvastatin Calcium (Lipitor*) 80 mg PO DAILY [facility] Last Admin: 11/07/17 10:31 Dose: 80 mg Cetirizine HCl (Zyrtec*) 10 mg PO DAILY [facility]; Protocol Last Admin: 11/07/17 10:32 Dose: 10 mg Dextrose (D50w Syringe 50 Ml*) 12.5 gm IV PUSH .FOR FS < 60 - SS PRN PRN Reason: FS < 60 Dextrose (D50w Syringe 50 Ml*) 25 gm IV PUSH ONCE PRN PRN Reason: FS < 60 Diltiazem HCl (Cardizem Tab*) 30 mg PO BID [facility] Docusate Sodium (Colace Cap*) 100 mg PO BID PRN PRN Reason: CONSTIPATION Fluticasone Propionate (Flonase Nasal [place] 50mcg*) 2 spray BOTH NARES DAILY [facility] Last Admin: 11/07/17 10:31 Dose: 2 spray Furosemide (Lasix Tab*) 40 mg PO DAILY [facility] Gabapentin (Neurontin Cap(*)) 300 mg PO BID [facility] Last Admin: 11/07/17 10:31 Dose: 300 mg Iron Sucrose 200 mg/ Sodium (Chloride) 110 mls @ 110 mls/hr IVPB DAILY [facility] Stop: 11/11/17 09:59 Last Admin: 11/07/17 14:50 Dose: 110 mls/hr Insulin Human Lispro (Humalog*) 0 units SUBCUT AC [facility]; Protocol Last Admin: 11/07/17 13:23 Dose: 7 units Insulin Human Lispro (Humalog*) 0 units SUBCUT ACHS [facility]; Protocol Last Admin: 11/07/17 13:23 Dose: 2 units Magnesium Oxide (Magox 400 Tab*) 400 mg PO DAILY [facility] Last Admin: 11/07/17 10:31 Dose: 400 mg Metoprolol Succinate (Toprol Xl Tab*) 25 mg PO DAILY [facility] Last Admin: 11/07/17 11:10 Dose: 25 mg Mometasone Furoate/Formoterol Fumar (Dulera 200/5 Mdi*) 2 puff INH BID [facility]; Protocol Last Admin: 11/07/17 07:33 Dose: 2 puff Omeprazole (Prilosec Cap*) 20 mg PO BID [facility] Last Admin: 11/07/17 10:31 Dose: 20 mg Ondansetron HCl (Zofran Inj*) 4 mg IV Q4H PRN PRN Reason: NAUSEA/VOMITING Last Admin: 11/05/17 04:15 Dose: 4 mg Oxycodone HCl (Roxycodone Tab*) 5 mg PO Q6H PRN PRN Reason: PAIN Rivaroxaban (Xarelto(*)) 20 mg PO DAILY [facility] Senna (Senokot Tab*) 1 tab PO BID PRN PRN Reason: CONSTIPATION Tramadol HCl (Ultram*) 50 mg PO Q12H PRN PRN Reason: PAIN Last Admin: 11/06/17 03:55 Dose: 50 mg Vital Signs - 8 hr 11/07/17 11/07/17 11/07/17 10:29 10:31 11:38 Temperature 98.1 F Pulse Rate 82 83 Respiratory 16 16 Rate Blood Pressure 147/74 135/77 (mmHg) O2 Sat by Pulse 93 Oximetry 11/07/17 11/07/17 11/07/17 11:39 11:55 12:30 Temperature 99.2 F Pulse Rate 85 82 Respiratory 18 16 Rate Blood Pressure 133/79 135/77 (mmHg) O2 Sat by Pulse 97 Oximetry 11/07/17 15:45 Temperature 98.6 F Pulse Rate 90 Respiratory 16 Rate Blood Pressure 143/64 (mmHg) O2 Sat by Pulse 95 Oximetry Oxygen Devices in Use Now: None Appearance: Patient is a 57yo male who appears stated age and is sitting in the bed in [facility]. Eyes: No Scleral Icterus, PERRLA Ears/Nose/Mouth/Throat: NL Teeth, Lips, Gums, Clear Oropharnyx, Mucous Membranes Moist Neck: NL Appearance and Movements; NL JVP, Trachea Midline Respiratory: Symmetrical Chest Expansion and Respiratory Effort, Clear to Auscultation Cardiovascular: NL Sounds; No Murmurs; No JVD, - - 2+ LE edema, stable from previous exam. Irregularly irregular rhythm. Abdominal: NL Sounds; No Tenderness; No Distention, No Hepatosplenomegaly Lymphatic: No Cervical Adenopathy Extremities: No Edema, No Clubbing, Cyanosis Skin: No Rash or Ulcers, No Nodules or Sclerosis Neurological: Alert and Oriented x 3, NL Sensation, NL Muscle Strength and Tone , - - CN II-XII intact. Result Diagrams: 11/07/17 10:22 11/07/17 10:19 Microbiology and Other Data: Microbiology 11/06/17 10:20 Stool Occult Blood (KAROL) - Final Stool 11/05/17 01:40 Urine Culture - Final Urine Kavya Albicans Assess/Plan/Problems-Billing Assessment: Patient is a 57yo male with a PMH for CHF, COPD, DM II, ETHAN, ICD placement who is here with presyncope without evidence of arrhythmia who has fluid overload and anemia and is being diuresed and getting IV iron. - Patient Problems (1) Pre-syncope Current Visit: Yes Status: Acute Comment: - Presyncope x2 with falls. No LOC. - Chest Pain developed after second fall on his left side. Pain Reproducible with palpation - Orthostatic normal x2 - ICD interrogation unremarkable except one episode of V-tach versus afib with aberrency. - Stress test low risk - Likely fluid overload on admission despite possibly dry exam - Trops normal. - On anticoagulation. Low risk of PE. Will not get D-Dimer at this time. - Will change settings on ICD to assess for V-tach below threshold outpatient - Anemia likely contributing. Will give IV iron while in hospital. (2) Hyperkalemia Current Visit: Yes Status: Acute Code(s): E87.5 - HYPERKALEMIA SNOMED Code (s): 27114810 Comment: - Likely due to CARLOS - Improved with therapy and continues to improve. - No peaked T-Waves or other EKG changes (3) Afib Current Visit: No Status: Acute Code(s): I48.91 - UNSPECIFIED ATRIAL FIBRILLATION SNOMED Code(s): 59507281 Comment: - Rate control with metoprolol - Xarelto at 20mg daily (4) CKD (chronic kidney disease) Current Visit: No Status: Acute Code(s): N18.9 - CHRONIC KIDNEY DISEASE, UNSPECIFIED SNOMED Code(s): 868446141 Comment: - With CARLOS. Trending down - Resume diuretics - Hold lisinopril. - Possible cause of hyperkalemia (5) Hypertension Current Visit: No Status: Acute Code(s): I10 - ESSENTIAL (PRIMARY) HYPERTENSION SNOMED Code(s): 26167680 Comment: - Borderline hypotensive on admission. - Currently normotensive. - Continue to hold lisinopril (6) CAD (coronary artery disease) Current Visit: No Status: Chronic Priority: Low Code(s): I25.10 - ATHSCL HEART DISEASE OF [place] CORONARY ARTERY W/O ANG PCTRS SNOMED Code(s): 83516702 Comment: - Likely non-cardiac origin of CP. - Stress test this year with no ischemia - Continue ASA and Statin - Cardiology consult appreciated - Stress test negative (7) Cardiomyopathy Current Visit: No Status: Chronic Priority: Medium Code(s): I42.9 - CARDIOMYOPATHY, UNSPECIFIED SNOMED Code(s): 10709619 Comment: - Echo Stable to improved - Likely CHF exacerbation due to anemia with pulmonary edema, Ascites, and CARLOS - Diuresis. (8) Diabetes Current Visit: No Status: Chronic Priority: High Code(s): E11.9 - TYPE 2 DIABETES MELLITUS WITHOUT COMPLICATIONS SNOMED Code(s): 04646224 Comment: - SSI - Resume oral medication at D/C (9) History of COPD Current Visit: No Status: Chronic Priority: Low Code(s): Z87.09 - PERSONAL HISTORY OF OTHER DISEASES OF THE RESPIRATORY SYSTEM SNOMED Code(s): 696627571 Comment: - Not in exacerbation (10) Full code status Current Visit: No Status: Acute Priority: Medium Onset Date: 04/30/14 Code(s): Z78.9 - OTHER SPECIFIED HEALTH STATUS SNOMED Code(s): 632895948 Status and Disposition: Inpatient for full evaluation of presyncope and diuresis.
[2017-11-07] MEDS: Diltiazem TAB* 30 MG PO SCH (20:39)
[2017-11-08] MEDS: Acetaminophen TAB* 325 MG PO PRN (03:06)
[2017-11-08 05:29] LABS: ABS Basophils 0 10^3/ul (0-0.2); ABS Eosinophils 0.1 10^3/ul (0-0.6); ABS Monocytes 0.7 10^3/ul (0-0.8); ABS Neutrophils 5.5 10^3/ul (1.5-7.7); ABS Nucleated RBC 0 10^3/ul; Eosinophil % 1.5 % (0-6); Hematocrit 27 % (42-52); Hemoglobin 8.3 g/dl (14.0-18.0); Lymphocyte % 13.1 % (25-47); Mean Corpuscular HGB Conc 31 g/dl (31-36); Mean Corpuscular Hemoglobin 21 pg (27-31); Mean Corpuscular Volume 67 fL (80-94); Mean Platelet Volume 8.4 um3 (7.4-10.4); Nucleated Red Blood Cells % 0; Platelet Count 159 10^3/ul (150-450); Red Blood Count 3.99 10^6/ul (4.00-5.40); Red Cell Distribution Width 18 % (10.5-15); White Blood Count 7.3 10^3/ul (3.5-10.8)
[2017-11-08 05:48] LABS: EGFR Non-African American 44.5 (>60)
[2017-11-08] MEDS: Mometasone/Formoter 200/5 MDI INH SCH (07:50)
[2017-11-08] MEDS: Metoprolol Succinate XL TAB* 25 MG PO SCH (08:22)
[2017-11-08] MEDS: Omeprazole CAP* 20 MG PO SCH (08:22)
[2017-11-08] MEDS: Gabapentin CAP(*) 300 MG PO SCH (08:22)
[2017-11-08] MEDS: Magnesium Oxide TAB* 400 MG PO SCH (08:23)
[2017-11-08] MEDS: Fluticasone NASAL SPRAY 50MCG* 16 gm SPRAY BTL BOTH NARES SCH (08:23)
[2017-11-08] MEDS: Atorvastatin* 80 MG TAB PO SCH (08:23)
[2017-11-08] MEDS: Aspirin EC TAB* 81 MG TAB.EC PO SCH (08:23)
[2017-11-08] MEDS: Cetirizine* 10 MG TAB PO SCH (08:23)
[2017-11-08] MEDS: Diltiazem TAB* 30 MG PO SCH (08:23)
[2017-11-08] MEDS ORDERED: Rivaroxaban TAB(*) 20 MG TAB PO SCH (09:00)
[2017-11-08] MEDS ORDERED: Furosemide TAB* 20 MG PO SCH (09:00)
[2017-11-08] MEDS: Insulin LISPRO* 1 UNITS UNIT SUBCUT SCH ×4 (09:19→12:57)
[2017-11-08] MEDS: Iron Sucrose* 200 MG in NS 0.9% 100 ML* 100 ML IVPB SCH (09:20)
[2017-11-08 12:58] VITALS: BP 141/73
--- NOTE | 2017-11-09 06:06 | DS ---
CC: Anita Knight NP; Dr. Timmy German.* DISCHARGE SUMMARY: DATE OF ADMISSION: 11/04/17 DATE OF DISCHARGE: 11/08/17 PRIMARY CARE PROVIDER: Anita Knight NP. MY ATTENDING WHILE IN THE HOSPITAL: Dr. Shelby Ta.* (DICTATED BY CHERELLE KELLY) THE PATIENT'S OUTPATIENT [employer]OM [employer] MAKER: Dr. Timmy German. PRIMARY DISCHARGE DIAGNOSES: 1. Congestive heart failure exacerbation. 2. Presyncope of possible arrhythmia. 3. Hyperkalemia. 4. Acute kidney injury. 5. Iron deficiency anemia. SECONDARY DISCHARGE DIAGNOSES: 1. Chronic kidney disease, stage 3B. 2. Diabetes mellitus, type 2. 3. Coronary artery disease, status post stenting. 4. Atrial fibrillation. 5. Chronic obstructive pulmonary disease, needing intermittent oxygen. 6. Obstructive sleep apnea. 7. Hyperlipidemia. 8. Diastolic congestive heart failure, status post ICD pacemaker implantation. 9. History of urinary stones. 10. Irritable bowel syndrome. STUDIES DONE WHILE IN THE HOSPITAL: Chest x-ray from 11/04/17 read as chest x- ray findings most compatible with exacerbation, congestive heart failure, possible small left lung base pleural effusion. Transthoracic echocardiogram from 11/04/17 read as mild concentric left ventricular hypertrophy was observed , there was abnormal septal wall motion consistent with right ventricular pacemaker. Estimated ejection fraction 50% to 55%, assessment of diastolic dysfunction nondiagnostic, right ventricle is mildly to moderately dilated and right ventricular global systolic function is mildly reduced. Pacemaker wire is visualized in the right ventricle. Left atrium is mildly dilated. Right atrium is mildly dilated. Aortic cusp sclerosis present with normal function. There is trace mitral regurgitation. Mild to moderate tricuspid regurgitation. There is evidence of moderate pulmonary hypertension. Left ventricular systolic pressure is estimated at 65 mmHg. Compared to the transesophageal echocardiogram on 05/28/17, EF was 30% to 35%. PA pressure previously 46 mmHg. Septal dyskinesis was seen on prior study. Abdomen and pelvis CT from showed hepatosplenomegaly, right pleural effusion, ascites, gallbladder is incompletely distended. There is no bladder wall thickening which is likely an artifact with incomplete distention. If there is clinical concern for primary gallbladder pathology, further evaluation with ultrasound of the right upper quadrant when the patient is n.p.o.. Nuclear medicine scan from 11/07/17 read as ventriculomegaly. Tomographic significance images demonstrates no reversible change. May be some evidence of reversible changes in the poor images, however, this is not confirmed on topographic images. This may be artifactual, low risk. Unable to perform ejection fraction due to arrhythmia. MEDICATIONS AT DISCHARGE: 1. Albuterol inhaler 1 puff inhalation b.i.d. as needed. 2. Lisinopril 2.5 mg p.o. q.a.m. 3. Omeprazole 20 mg p.o. b.i.d. 4. Gabapentin 300 mg p.o. b.i.d. 5. Cetirizine 10 mg p.o. daily. 6. Metoprolol succinate 25 mg p.o. daily. 7. Atorvastatin 80 mg p.o. daily. 8. Magnesium oxide 400 mg p.o. daily. 9. Nitroglycerin 0.4 mg sublingually q.5 minutes as needed for angina. 10. Diltiazem 30 mg p.o. b.i.d. 11. Xarelto 20 mg p.o. daily. 12. Aspirin 81 mg p.o. daily. 13. Tylenol 650 mg p.o. q.12 hours as needed. 14. Furosemide 40 mg p.o. daily x7 days, then 20 mg p.o. daily. 15. Janumet 1 tablet p.o. b.i.d. 16. Symbicort 2 puffs inhalation b.i.d. 17. Hydrochlorothiazide 25 mg p.o. daily. 18. Tramadol 50 mg p.o. q.12 hours as needed. NEW MEDICATIONS AT DISCHARGE: 1. Hydrochlorothiazide. 2. Tramadol. 3. Furosemide. 4. Docusate. 5. Maalox. 6. Ferrous sulfate 325 mg p.o. every other day. MEDICATIONS DISCONTINUED AT DISCHARGE: 1. Dyazide. 2. Furosemide 20 mg p.o. daily. 3. Nasonex. 4. Brilinta. HOSPITAL COURSE: This is a brief summary of the patient's presentation. For more details, please see the history and physical from Dr. Fatimah Mac on . In brief, the patient is a 57-year-old male with past medical history significant for the above who presented to the emergency department with 2 episodes of presyncope with falls where he felt weak. This occurred after he was pushing a wheelbarrow. The patient stated that he felt fine when he was pushing the wheelbarrow. He had been in his normal state of health. Recently, he has had approximately 2 weeks of increased abdominal distention. Patient landed on his left side twice and after the second time he felt chest pain that is reproducible to palpation and worse with movement of his left arm. Patient continued to have dizziness, did not have any shortness of breath, nausea or vomiting. The patient was in his normal state of health. Patient has chronic lower extremity swelling. The patient has no known change in his weight. Patient came into the emergency department. Patient had no loss of consciousness and no shocks from ICD and no black stools or hematochezia. Patient was admitted to the hospital for evaluation of his chest pain. Patient had 4 negative troponins. Patient was initially deemed to be dry and was given a liter and a half of fluid. Patient's blood pressure was initially borderline low and came up to the normal range with fluid. Patient had an initially elevated lactic acid. Patient was found to have iron studies as well as CBC consistent with iron-deficiency anemia. Patient had a slightly elevated BNP and an excellent lipid profile. Patient had negative urine culture. Patient's hemoglobin moderately stable throughout his hospitalization. Patient on had a jump in his potassium 5.9 to 6.9, which was despite his lisinopril, hydrochlorothiazide and triamterene being held while he was in the hospital. However, his Lasix was also held. Patient responded to Kayexalate, insulin, glucose and Lasix IV to bring his potassium down to 5.7. Patient had no arrhythmia or EKG changes consistent with hyperkalemia. Patient had magnesium which was replaced multiple times during his hospitalization. Patient initially had elevated creatinine of 2.01, which decreased slightly to 1.09 with fluid. Patient was seen in consultation by Dr. Arnulfo Kelley on . Patient had his ICD interrogated, which showed no arrhythmias, which showed only one arrhythmia at threshold of 190, which was consistent with slow V -tach or AFib aberrancy. It was recommended that the patient have his ICD sensing settings changed to tachy rhythms from 150 to 190 outpatient due to concern for slow ventricular rhythms causing his dizziness. Patient had a stress test, which was negative to assess provocable arrhythmias with ischemia. Patient has had significant improvement in his ejection fraction since his previous admission. Patient was admitted twice earlier this year for 2 episodes of severe epistaxis requiring transfusion, which was likely cause of his iron-deficiency anemia. Patient was also recommended to be gently diuresed. Patient was started on diuresis and his kidney function improved as well as his breathing and abdominal distention. Patient had CT of the abdomen as above showing ascites which has progressed from previous CT of the abdomen in May of this year. Patient had a normal liver function tests. No history of liver disease and no low albumin. Patient was given 2 doses of iron sucrose while in hospital due to his iron deficiency anemia, was started on ferrous sulfate every other day at home. Patient's hemoglobin stayed stable while in the hospital. Patient had slight hyponatremia in the hospital, which was trending up at the time of his discharge. Patient had a very slightly low morning cortisol of 7.21 on 11/08/17. The patient was stable enough for discharge on 11/08/17. PHYSICAL EXAM ON DAY OF DISCHARGE: General: The patient is a 57-year-old male who appears older than stated age and sitting comfortably in bed in no acute distress. Vital signs at the time of discharge, temperature 98.0, pulse rate 72 , respiratory rate 20, oxygen saturation 96% on room air, blood pressure 141/ 73. HEENT: Normocephalic and atraumatic. Sclerae anicteric. No conjunctival injection. Oral mucosa moist. No oropharyngeal erythema, discharge, or exudate. Neck: Supple and nontender. No lymphadenopathy. No carotid bruits auscultated. No JVD. Cardiac: Regular rate and rhythm. No clicks, murmurs, or gallops or rubs. Pulses 2+ in the bilateral dorsalis pedis, posterior tibialis and radial areas. Respiratory: Clear to auscultation bilaterally. No wheezes or rhonchi. Good air exchange bilaterally. Abdomen is soft, slightly distended , improved from previous exam. No tenderness to palpation. Bowel sounds present, normoactive in all 4 quadrants. No hepatosplenomegaly. No abdominal bruits auscultated. No hepatojugular reflux. Genitourinary: No suprapubic or CVA tenderness. Skin: Clean, dry, and intact. No rashes. Neuro: Cranial nerves II through XII intact. No focal deficits. Alert and oriented x3. Psychiatric: Pleasant and cooperative. LABORATORY DATA ON THE DAY OF DISCHARGE: White blood cell count 7.3, hemoglobin 8.3, hematocrit 27, MCV 67, platelet count 159. Sodium 131, potassium 4.8, chloride 99, carbon dioxide 27, anion gap 5, BUN 43, creatinine 1.61, glucose 259, calcium 8.4, magnesium 2.0, cortisol 7.21. DISCHARGE PLAN: The patient will be discharged to home. Patient will have medication adjustments as above. Patient will have tramadol for his chest and shoulder pain. Patient will continue to have nitroglycerin as needed for anginal symptoms. Patient had a low risk stress test. Patient should follow up with primary care provider in one week for repeat BMP to assess his potassium , sodium and his kidney function. Consideration should be made for a cortisol stim test if possible to assess for [place] of patient's borderline low morning cortisol, which may be contributing his hyperkalemia and hyponatremia and possible presyncope. Patient will be continued on outpatient Janumet. His hemoglobin A1c should be followed and additional and oral antihyperglycemics should be added if indicated. Patient should have repeat iron studies. Patient was given 400 mg of iron IV while in the hospital. Patient's iron should be optimized as much as possible to relieve strain on patient's heart. Patient should follow up with Dr. German within 2 weeks for adjustment of his ICD settings to tachy low arrhythmias, it may be causing his dizziness or possibly should have separate event monitor to detect and help correlate arrhythmias to episodes of presyncope. Patient had no arrhythmias while in the hospital. Patient will continue on his Xarelto. Patient should continue monitoring of his renal function to assess for the appropriateness of Xarelto as an anticoagulant. Patient will have Lasix at 40 mg for one week and then dropping down to 20 mg. Patient should have increase in his diuretic as needed for fluid overload. Patient should weigh himself daily and call his primary care doctor or building maintenance worker for significant increases in weight. Patient should return to hospital for alarming symptoms such as syncope, presyncope, chest pain , severe shortness of breath, severe abdominal pain, blood in his stools, uncontrolled epistaxis or other alarming symptoms. Patient can engage in activities as tolerated and heart healthy diet without caffeine. TIME SPENT: Approximately 60 minutes was spent on the discharge of this patient , 30 of which was spent [id number] with the patient obtaining history and physical and discussing treatment plan. CHERELLE KELLY [id number]/[facility] #: [id number] [id number]
== END 2017-11-08 12:54 | disposition home or self-care (01) | DRG 291 ==
LOC: ED 17:34 → MEDTELE 21:32 → OBSVTOIN 11-05 17:59
PROVIDERS: ADMIT Pediatrics; ATTEND Internal Medicine
DX: I13.0 Hypertensive heart and chronic kidney disease with heart failure and stage 1 through stage 4 chronic kidney disease, or unspecified chronic kidney disease (principal); I50.33 Acute on chronic diastolic (congestive) heart failure; N17.9 Acute kidney failure, unspecified; E87.1 Hypo-osmolality and hyponatremia; N18.3 Chronic kidney disease, stage 3 (moderate); E11.22 Type 2 diabetes mellitus with diabetic chronic kidney disease; E87.5 Hyperkalemia; D50.9 Iron deficiency anemia, unspecified; I25.10 Atherosclerotic heart disease of native coronary artery without angina pectoris; I48.91 Unspecified atrial fibrillation; J44.9 Chronic obstructive pulmonary disease, unspecified; G47.33 Obstructive sleep apnea (adult) (pediatric); E78.5 Hyperlipidemia, unspecified; K58.9 Irritable bowel syndrome, unspecified; R07.9 Chest pain, unspecified; I42.9 Cardiomyopathy, unspecified; I08.2 Rheumatic disorders of both aortic and tricuspid valves; I27.20 Pulmonary hypertension, unspecified; W18.30XA Fall on same level, unspecified, initial encounter; Z95.5 Presence of coronary angioplasty implant and graft; Z95.810 Presence of automatic (implantable) cardiac defibrillator; Z79.01 Long term (current) use of anticoagulants; Z79.84 Long term (current) use of oral hypoglycemic drugs; Z79.1 Long term (current) use of non-steroidal anti-inflammatories (NSAID); Z79.82 Long term (current) use of aspirin; Z79.899 Other long term (current) drug therapy; Z91.041 Radiographic dye allergy status; Z91.013 Allergy to seafood; Z87.891 Personal history of nicotine dependence; Y92.096 Garden or yard of other non-institutional residence as the place of occurrence of the external cause; Z82.49 Family history of ischemic heart disease and other diseases of the circulatory system
CPT/HCPCS: 36415; 71045; 74176; 78452; 80048; 80053; 80061; 80076; 81003; 81015; 82272; 82533; 82570; 82728; 82947; 83036; 83540; 83550; 83605; 83735; 83880; 83935; 84300; 84443; 84484; 85025; 85060; 85610; 87086; 87106; 90686; 93005; 93017; 93306; 94640; 99284; A9270-GY; A9502; C8929; J0610; J1756; J1940; J2405; J2785; J3475

== ENCOUNTER → 2018-01-16 15:37 | Emergency (ER) | payer MEDICARE, MEDICAID ==
[~2018-01-16 15:37] MED LIST: Furosemide TAB* 40 MG PO ONE
--- OUTSIDE RECORDS SUMMARY | 2018-01-16 15:57 | XMS REPORT ---
:1960 External Reference #:[id number] Author Organization [facility] Address [address] [place] [address] [place] [address] Phone [phone] Care Team Providers Name Role Phone Erasmo Hill MD Primary Care Physician Unavailable Payers Type Date Identification Numbers Payment Provider Subscriber Medicare Primary Effective: Policy Number: Medicare Fer Pratt 2007 [id number] PayID: [id number] [address] [place] [address] [facility] Policy Number: [id number] Medicaid Fer Pratt PayID: [id number] [address] [place] [address] Problems Date Description Provider Status Onset: 06/04/2011 Chest pain Jordan Rojas M.D. Onset: 06/04/2011 Electrocardiogram abnormal Jordan Rojas M.D. Onset: 06/04/2011 Benign essential hypertension Jordan Rojas M.D. Onset: 06/04/2011 Hyperlipidemia Jordan Rojas M.D. Onset: 06/04/2011 Automatic implantable cardiac Jordan Rojas defibrillator in situ M.Harjinder Onset: 07/11/2011 Coronary arteriosclerosis [place] Active Onset: 07/11/2011 Chronic ischemic heart disease [place] Schedule Active Onset: 05/26/2012 Tachycardia Timmy German Active Etelvina Onset: 05/26/2012 Dyspnea Jordan Rojas M.D. Onset: 10/16/2012 Spinal stenosis of lumbar region Leobardo Reynoso M.D. Active Onset: 11/24/2012 Preoperative cardiovascular Timmy German Active zak Main Onset: 02/02/2013 Arthralgia of the lower leg Edmund Jasso M.D. Active Onset: 06/12/2016 Disturbance in sleep behavior Delilah Fregoso MD Active Onset: 07/19/2016 Obstructive sleep apnea syndrome Macey Cespedes DNP, RN, Active [employer] Onset: 07/19/2016 Hypersomnia Macey Cespedes DNP, RN, Active [employer] Onset: 11/01/2016 Epistaxis Macey Cespedes DNP, LIS, Active [employer] Onset: 11/05/2017 Syncope and collapse CHERELLE Coffey Active Onset: 11/05/2017 Atrial fibrillation CHERELLE Coffey Active Onset: 11/05/2017 Chronic kidney disease CHERELLE Coffey Active Onset: 11/05/2017 Cardiomyopathy, unspecified CHERELLE Coffey Active Onset: 11/05/2017 Chronic obstructive lung disease CHERELLE Coffey Active Onset: 11/05/2017 Type 2 diabetes mellitus CHERELLE Coffey Active Onset: 11/06/2017 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 CHERELLE Coffey Active fail, w stg 1-4/unsp chr kdny Onset: 11/07/2017 Hyperkalemia CHERELLE Coffey Active Onset: 11/08/2017 Acute renal failure syndrome CHERELLE Coffey Active Onset: 11/08/2017 Heart failure, unspecified CHERELLE Coffey Active Onset: 11/08/2017 Iron deficiency anemia CHERELLE Coffey Active Family History Date Family Member(s) Problem(s) Comments General Arthritis General Stroke General Diabetes General Cancer Father Sleep Apnea Father Hypertension Father Hypercholesterolemia Father Diabetes Mother due to car accident () Mother Heart Disease Siblings 10 Social History Type Date Description Comments Marital [...] day Exercise Type/Frequency Exercises regularly Works at [employer] Hx Text Allergies, Adverse Reactions, Alerts Date Description Reaction Status Severity Comments 06/14/2009 contrast dye Urticaria active 08/30/2016 Shellfish Urticaria active Medications Medication Date Status Form Strength Qnty SIG Indications Ordering Provider Glipizide ER 07/28 Active Tablets ER 5mg 90tab 1 by mouth yb 24HR s bid Jess German M.D. Nitroglycerin 05/04 Active Tablets Sub 0.4mg 1 sl q5mins x3 as needed for chest pain Xarelto 02/21 Active Tablets 20mg 30tab 1 by mouth I48.91 ta s every day S. 05/14/17 Monserrat sanchez M.D. Magnesium Oxide 07/22 Active Tablets 400mg 60tab 1 by mouth Jeniseyb s every day Jess German M.D. Metoprolol 07/05 Active Tablets ER 25mg 90tab 1 by mouth I42.9 Bhargavi S. Succinate 24HR s twice Foster, daily. N.P. Tylenol 02/03 Active Tablets 500mg 100ta two qd prn josé luis bs Jess German M.D. Nasonex 02/03 Active Suspension 50mcg/Act 1Mon 1 [place] Jon Each S. Side qd Etelvina German Albuterol Active Aerosol 90mcg/Act 1 po bid prn Diltiazem HCL Active Tablets 30mg 180ta 1 by mouth Bhargavi S. /0000 bs twice a , day N.P. Cetirizine HCL Active Tablets 10mg 1 by mouth Unknown every day Symbicort Active Aerosol 160-4.5mc 2 puff Unknown g/Act twice a day Omeprazole Active Tablets DR 20mg 1 by mouth Unknown twice daily Gabapentin Active Capsules 300mg 1 by mouth Unknown twice daily Lisinopril Active Tablets 2.5mg 90tab 1 by mouth Bhargavi S. /0000 s every day Foster, N.P. Atorvastatin Active Tablets 80mg 90tab take one Qutaybeh s tablet by S. mouth Monserrat every day , M.D. Furosemide Active Tablets 20mg 1 by mouth every day Aspirin Active Tablets DR 81mg 1 by mouth every day Ozempic Active Solution 0.25or administer Pen-Inject 0.5 1x/week mg/Dose Hydrochlorothiazi Active Tablets 25mg 1 by mouth Unknown every day Janumet Active Tablets 50-1000mg 1 tab by mouth twice daily Brilinta 06/04 Hx Tablets 90mg 1 tab by mouth - twice a 12/28 day ( hold) Magnesium Sulfate 07/22 Hx Solution 2GM/50ML 2gms 2 gms IV over 3 S. - hours Monserrat 09/08 , M.D. Aspirin 07/10 Hx Tablets 81mg 1 by mouth every day S. - 05/06/17 Maghaydah 05/14 Hold , M.D. Metformin HCL 12/03 Hx Tablets ? 60tab 1 [facility]. Magnesium Sulfate 10/31 Hx Solution 2GM/50ML 1unit 2 gm s infusion F. - over 1 Mauser, 11/08 hour x 1 M.D. dose Magnesium Oxide 10/31 Hx Tablets 400mg 30tab 1 by mouth s bid S. - (Unsure If Maghaydah 07/10 Takng) , M.D. Metoprolol 07/16 Hx Tablets 100mg 60tab 1 po bid Qutaybeh Tartrate s (taken S. - with 25 mg Maghaydah 06/19 tabs) , M.D. Metoprolol 07/16 Hx Tablets 25mg 60tab 1 po bid Qutaybeh Tartrate s (with S. - 100mg to Maghaydah 10/16 equal , M.D. 125mg bid) Cardizem 05/26 Hx Tablets 30mg 180ta 1 by mouth bs twice S. - daily Maghaydah 12/31 , M.D. Lisinopril 04/25 Hx Tablets 5mg 30tab / po qd Qutayb s (decreased S. - 12/19/15) Monserrat 07/09 , M.DLina /2016 Metoprolol 04/25 Hx Tablets 100mg 60tab 1 po bid [facility] , M.[facility] /2012 Metformin HCL 03/31 Hx Tablets 1000mg 1 po bid [facility]ayb [facility] , M.D. /2012 Metoprolol 03/31 Hx Tablets ER 50mg 90tab 1 and 02/18 24HR s [facility]. Lisinopril 02/03 Hx Tablets 5mg 30tab 1 po qd Qutayb s S[facility] , M.D. Metoprolol 02/03 Hx Tablets ER 50mg two qd [facility]utayb S. [facility] 03[facility] , M.D. Metformin HCL 02/03 Hx Tablets 1000mg two qd Qutayb S. [facility] 03/[facility] , M.D. Lisinopril 02/03 Hx Tablets 2.5mg qd yb S. [facility] 04/25 , M.D. Prevacid 02/[address] 30mg 90cap 1 PO qd Qutayb s . [facility] , M.DLina Glipizide XL 02/03 Hx Tablets ER 10mg 100ta bid PO Qutaybeh 24HR bs S. [facility] 06/[facility] , M.DLina /2016 Albuterol Inhaler 02/03 Hx 3unit 2 Puffs Up s To qid prn S. [facility] 06[facility]06 , M.D. Singulair 02/03 Hx Tablets 10mg 30tab 1 [facility]d [facility] M.DLina Lescol 02/03 Hx Tablets ER 80mg 30tab 1 PO hs [facility]b [facility]HR [facility]. Lanoxin 06/16 Hx Tablets 0.25mg 30tab 1 PO qd Qutaybeh s [facility] , M.D. Metoprolol 06/16 Hx Tablets 50mg 110ta 1and 02/18 Qutaybeh Tar bs po bid S[facility] , M.D. Lisinopril 06/16 Hx Tablets 2.5mg 30tab 1 po qd Qutayb s S[facility] , M.D. Digitek Hx Tablets 0.25mg 1 PO qd Qutayb S[facility] 06[facility] , .D. Metoprolol Hx Tablets ER 25mg 90tab 1po bid Qutaybeh Succinate ER 24HR s . [facility] , .D. Aspirin 04/16 Hx Tablets 325mg 1 PO qd [facility]utayb S[facility] , M.D. Glucotrol 04/16 Hx Tablets 15mg 60tab 1 PO qd Qutayb s . [facility] , .D. Metformin HCL 04/16 Hx Tablets 500mg 60tab Take 1 s Tablet By S. - [facility]outh [facility]d [facility] , M.D. Plavix Hx Tablets 75mg 1 po qd x3 Unknown /0000 days - 08/10 Simvastatin Hx Tablets 40mg 30tab 1 po qhs Unknown /0000 s - 12/31 Humulin R Hx Solution 100Unit/M 2unit 20 units Unknown /0000 L s qam; 20 - units q 12/18 p.m. /2012 Humulin R Hx sliding Unknown /0000 scale tid - 12/02 Metoprolol Hx Tablets 25mg 1 by mouth Unknown Tartrate twice a - day (taken 06/19 with mg tabs) Metformin HCL Hx Tablets 1000mg 1 by mouth Unknown /0000 twice a - day 06/19 Brilinta Hx Tablets 90mg 180ta 1 tab by Bhargavi S. /0000 bs mouth Aguilar, - twice a N.P. 05/06/17 Hold Nitrostat Hx Tablets Sub 0.4mg 25tab one sl Qutaybeh /0000 s q5min up S. - to 3 doses Maghaydah 12/28 as needed , M.D. Triam Hx Cream 0.1% Midura, / MD Erasmo - 06/18 Triamcinolone Hx Cream 0.1% apply thin Unknown Acetonide / film twice - daily 07/10 Janumet Hx Tablets 50-1000mg take 1 Unknown /0000 tablet by - mouth 07/27 twice a /2017 day Patanol Hx Drops prn for Unknown allergies - 07/10 Triamterene/Afton Hx Capsules 37.5-25mg 90cap 1 tablet Bhargavi Mercado chlorothiazide / s by mouth Aguilar, - daily N.P. 12/29 Januvia Hx Tablets 100mg 1 by mouth Unknown /0000 every day - 12/29 Metformin HCL Hx Tablets 500mg 1 by mouth Unknown /0000 twice a - day 12/29 Medications Administered in Office Medication Date Status Form Strength Qnty SIG Indications Ordering Provider Depomedrol Administered Injection Ajz 80MG 011 DAVEY Avelar Vital Signs Date Vital Result Comment 12/29/2017 Height 67 inches 5'7" Weight 197.25 lb with shoes Heart Rate 84 /min BP Systolic 158 mmHg laying BP Diastolic 92 mmHg laying BP Systolic Sitting 158 mmHg BP Diastolic Sitting 88 mmHg BP Systolic Standing 150 mmHg BP Diastolic Standing 76 mmHg BMI (Body Mass Index) 30.9 kg/m2 Ejection Fraction 50-55% 11/05/2017 Echocardiogram 07/04/2017 Height 67 inches 5'7" Weight 188.00 [...] Test Date Test Result H/L Range Note Basic Metabolic Panel 07/17/2017 Sodium 134 mmol/L Low 139-145 Chloride 100 mmol/L Low 101-111 Co2 Carbon Dioxide 24 mmol/L 22-32 Blood Urea Nitrogen 32 mg/dL High 6-24 Creatinine 1.83 mg/dL High 0.67-1.17 BUN/Creatinine Ratio 17.5 8-20 Calcium 8.6 mg/dL 8.6-10.3 Egfr Non- 38.5 >60 Egfr 49.5 >60 1 Potassium 5.1 mmol/L High 3.5-5.0 Anion Gap 10 mmol/L 2-11 Glucose 591 mg/dL High 70-100 2 Comp Metabolic Panel 02/21/2017 Sodium 133 mmol/L [...] Egfr Non- 49.2 >60 Egfr 63.2 >60 3 Laboratory test finding 02/21/2017 TSH (Thyroid Stim Horm) 1.10 mcIU/mL 0.34-5.60 CBC Auto Diff 02/21/2017 White Blood Count [...] Cells % 0 Laboratory test finding 02/21/2017 Magnesium 1.5 mg/dL Low 1.9-2.7 Laboratory test finding 08/22/2016 Magnesium 1.6 mg/dL Low 1.9-2.7 4 CBC Auto Diff 07/19/2016 White Blood Count [...] 0-2 Nucleated Red Blood Cells % 0 Comp Metabolic Panel 07/19/2016 Sodium 135 mmol/L [...] Egfr Non- 50.5 >60 Egfr 65.0 >60 5 Laboratory test finding 07/19/2016 Magnesium 1.0 mg/dL Low 1.9-2.7 Lipid Profile (Trig/Chol/HDL) 07/19/2016 Triglycerides 181 mg/dL 6 Cholesterol 108 mg/dL 7 HDL Cholesterol 29.3 mg/dL 8 LDL Cholesterol 43 mg/dL 9 Laboratory test finding 07/19/2016 Creatine Kinase(CK) 83 U/L 10-223 Basic Metabolic Panel 06/07/2016 Sodium 137 mmol/L 133-145 Chloride 109 mmol/L 101-111 Co2 Carbon Dioxide 24 mmol/L 22-32 Glucose 65 mg/dL Low 70-100 Blood Urea Nitrogen 29 mg/dL High 6-24 Creatinine 2.03 mg/dL High 0.67-1.17 BUN/Creatinine Ratio 14.3 8-20 Calcium 8.3 mg/dL Low 8.6-10.3 Egfr Non- 34.3 >60 Egfr 44.1 >60 10 Potassium 6.3 mmol/L High 3.5-5.0 11 Anion Gap 4 mmol/L 2-11 Basic Metabolic [...] Egfr Non- 61.1 >60 Egfr 78.6 >60 12 Laboratory test finding 12/27/2015 Point of Care Glucose 160 mg/dL High 74 -106 13 Basic Metabolic Panel 12/21/2015 Sodium 138 mmol/L 133-145 Potassium 5.2 mmol/L High 3.5-5.0 Chloride 105 mmol/L 101-111 Co2 Carbon Dioxide 27 mmol/L 22-32 Anion Gap 6 mmol/L 2-11 Glucose 104 mg/dL High 70-100 Blood Urea Nitrogen 29 mg/dL High 6-24 Creatinine 1.53 mg/dL High 0.67-1.17 BUN/Creatinine Ratio 19.0 8-20 Calcium 9.0 mg/dL 8.6-10.3 Egfr Non- 47.5 >60 Egfr 61.1 >60 14 Inr/Protime 12/18/2015 Inr 1.01 0.89-1.11 Laboratory test [...] Egfr Non- 53.9 >60 Egfr 69.4 >60 15 Basic Metabolic Panel 12/04/2015 Sodium 136 mmol/L 133-145 Potassium 5.2 mmol/L High 3.5-5.0 Chloride 102 mmol/L 101-111 Co2 Carbon Dioxide 28 mmol/L 22-32 Anion Gap 6 mmol/L 2-11 Glucose 194 mg/dL High 70-100 Blood Urea Nitrogen 28 mg/dL High 6-24 Creatinine 1.26 mg/dL High 0.67-1.17 BUN/Creatinine Ratio 22.2 High 8-20 Calcium 8.6 mg/dL 8.6-10.3 Egfr Non- 59.4 >60 Egfr 76.4 >60 16 Laboratory test finding 12/04/2015 Magnesium 1.2 mg/dL Low 1.9-2.7 17 Laboratory test finding 11/09/2015 Magnesium 1.3 mg/dL Low 1.9-2.7 18 Laboratory test finding 10/31/2015 Digoxin 0.2 ng/ml Low 0.8-2.0 19 Magnesium 1.2 mg/dL Low 1.9-2.7 20 Lipid Profile (Trig/Chol/HDL) 10/31/2015 Triglycerides 279 mg/dL 21 Cholesterol 137 mg/dL 22 HDL Cholesterol 31.1 mg/dL 23 LDL Cholesterol 50 mg/dL 24 Laboratory test finding 10/31/2015 Creatine Kinase(CK) 63 U/L 10-223 25 Thyroid Panel 10/31/2015 Free T4 (Free Thyroxine) 0.93 ng/dL 0.61-1.12 26 Thyroxine 9.36 ?g/dL 6.09-12.23 27 TSH (Thyroid Stim Horm) 0.68 mcIU/mL 0.34-5.60 28 Comp Metabolic Panel 10/31/2015 Sodium 135 mmol/L [...] Egfr Non- 52.6 >60 Egfr 67.7 >60 29 CBC Auto Diff 10/31/2015 White Blood Count [...] 0-2 Nucleated Red Blood Cells % 0.8 Hepatic Liver Functions PNL 07/08/2014 Total Protein [...] B Type Natriuretic Peptide 28 pg/mL 30 BMP Basic Metabolic Panel (8) 07/08/2014 Sodium 127 mmol/L Low 133-145 Chloride 95 mmol/L Low 101-111 Co2 Carbon Dioxide 25 mmol/L 22-32 Glucose 461 mg/dL High 70-100 Blood Urea Nitrogen 35 mg/dL High 6-24 Creatinine 1.47 mg/dL High 0.67-1.17 BUN/Creatinine Ratio 23.8 High 8-20 Calcium 9.3 mg/dL 8.6-10.3 Egfr Non- 50.1 >60 Egfr 64.4 >60 31 Potassium 6.4 mmol/L High 3.5-5.0 32 Anion Gap 7 mmol/L 2-11 CBC W/Auto [...] finding 07/12/2010 Glucose 439 mg/dL High 70-100 33, 34 Laboratory test finding 04/08/2010 Stool For Blood NEGATIVE Negative Laboratory test finding 06/15/2009 Glucose 369 mg/dL High 70-100 35 Laboratory test finding 06/15/2009 Glucose Stat 343 mg/dL High 70-100 36 Laboratory test finding 06/15/2009 Glucose Stat 203 mg/dL High 70-100 37 Laboratory test finding 06/15/2009 Glucose 269 mg/dL High 70-100 38 Laboratory test finding 06/15/2009 Glucose Stat 271 mg/dL High 70-100 39 Basic Metabolic Panel [...] > 60 eGFR 138.7 > 60 43 Laboratory test finding 06/14/2009 Glucose Stat 579 mg/dL High 70-100 44 Laboratory test finding 06/14/2009 Glucose Stat 525 mg/dL High 70-100 45 Laboratory test finding 06/14/2009 Glucose Stat 542 mg/dL High 70-100 46 Basic Metabolic Panel 06/14/2009 Sodium 130 mmol/L Low 135-145 Potassium 3.7 mmol/L 3.5-5.0 Chloride 93 mmol/L Low 101-111 Co2 (Carbon Dioxide) 28.0 mmol/L 22-32 Anion Gap 9.0 mmol/L 2-11 47 Glucose 345 mg/dL High 70-100 48 BUN 18 mg/dL 6-24 Creatinine 0.60 mg/dL 0.50-1.40 One Over Creatinine 1.60 BUN/Creatinine Ratio 30.0 High 8-20 Calcium 9.1 mg/dL 8.1-9.9 49 eGFR Non- 152.8 > 60 eGFR 184.9 > 60 50 1 Because ethnic data is not always [...] 5 Kidney failure <15 (or dialysis) 2 Critical Result [id number] Called to SAIMA Kramer at: 14:05:40 by:[id number] Read back by:SAIMA Kramer 3 Because ethnic data is not always [...] 5 Kidney failure <15 (or dialysis) 07/25/16 5 Because ethnic data is not always readily [...] 15-29 5 Kidney failure <15 (or dialysis) 6 Desirable <150 Borderline high 150-199 High 200-499 Very High >500 7 Desirable <200 Borderline high 200-239 High >239 8 Low <40 Desirable: 40-60 High: >60 9 Desirable: <100 mg/dL Near Optimal: 100-129 mg/dL Borderline High: 130-159 mg/dL High: 160-189 mg/dL Very High: >189 mg/dL 10 Because ethnic data is not always [...] 5 Kidney failure <15 (or dialysis) 11 Critical Result K:6.3 Called to IQRA Nielsen at: 16:28:49 by:[id number] Read back by:IQRA Nielsen 12 Because ethnic data is not always [...] 5 Kidney failure <15 (or dialysis) 13 Director Pharmacovigilance: [id number] CASSIA THRASHER 14 Because ethnic data is not always [...] 5 Kidney failure <15 (or dialysis) 15 Because ethnic data is not always readily [...] 15-29 5 Kidney failure <15 (or dialysis) 16 Because ethnic data is not always readily [...] 15-29 5 Kidney failure <15 (or dialysis) 17 in 1 week 18 11/09/15 am after IV Mag infusion 19 fasting in next few days CC: [...] in next few days CC: PMD 28 fasting in next few days CC: PMD 29 Because ethnic data is not always [...] 5 Kidney failure <15 (or dialysis) 30 >100 to <200 pg/mL: likely compensated congestive heart failure (CHF) 200 to 400 pg/mL: likely moderate CHF >400 pg/mL: likely moderate to severe CHF 31 Because ethnic data is not always readily [...] 15-29 5 Kidney failure <15 (or dialysis) 32 Critical Result K:6.4 Called to RAINA HAYS at: 15:35:57 by:[id number] Read back by:RAINA HAYS 33 CALL RESULTS TO DERECK AT [id number] 34 VERBAL TO DERECK BY ALEKSANDRA at 1222 on 07/12/10. Results read back accurately. 35 Note change in reference range as of 10/08/07. The change was based on recommendations from the [employer]. 36 Note change in reference range as of 10/08/07. The change was based on recommendations from the [employer]. 37 Note change in reference range as of 10/08/07. The change was based on recommendations from the [employer]. 38 Note change in reference range as of 10/08/07. The change was based on recommendations from the [employer]. 39 Note change in reference range as of 10/08/07. The change was based on recommendations from the [employer]. 40 Anion gap measurement may be of limited value in the presence of any alkalosis, especially in a combined acid base disorder. . 41 VERBAL TO ANAYELI BY [facility] at 2022 on 06/14/09. Results read back accurately. Note change in reference range as of 10/08/07. The change was based on recommendations from the [employer]. 42 Please note change in [...] 5 Kidney failure <15 (or dialysis) 44 VERBAL TO ANAYELI BY OSBALDO at 2022 on 06/14/09. Results read back accurately. Note change in reference range as of 10/08/07. The change was based on recommendations from the [employer]. 45 VERBAL TO SMITA BY [facility] at 2306 on 06/14/09. Results read back accurately. Note change in reference range as of 10/08/07. The change was based on recommendations from the [employer]. 46 VERBAL TO ANAYELI BY VENECIA at 1918 on 06/14/09. Results read back accurately. Note change in reference range as of 10/08/07. The change was based on recommendations from the [employer]. 47 Anion gap measurement may be of limited value in the presence of any alkalosis, especially in a combined acid base disorder. . 48 Note change in reference range as of 10/08/07. The change was based on recommendations from the [employer]. 49 Please note change in reference range effective 07 . 50 Because ethnic data is not always readily [...] 15-29 5 Kidney failure <15 (or dialysis) Procedures Date CPT Code Description Status Comment 12/29/2017 22294 EKG Tracing & Interpretation Completed 11/27/2017 20585 Icd Check Single,Dual Or Multiple In Person Completed W/DR Incl Heart Rhyth 11/27/2017 90707 Icd Check Single,Dual Or Multiple In Person Completed W/DR Incl Heart Rhyth 11/13/2017 23085 Icd Check Single,Dual Or Multiple In Person Completed W/DR Incl Heart Rhyth 11/13/2017 88274 Icd Check Single,Dual Or Multiple In Person Completed W/DR Incl Heart Rhyth 11/07/2017 25532 Treadmill Interp/Report Only Completed 11/07/2017 04861 Stress Test Supervsn W/Out I/R Completed 11/05/2017 71182 ECHO Transthorasic Realtime 2D W Doppler & Completed Color Flow Hosp 10/31/2017 41518 Icd Check Single,Dual Or Multiple In Person Completed W/DR Incl Heart Rhyth 09/03/2017 99578 Icd Eval With Inerative Adjustmt Dual Lead Completed System 09/03/2017 98487 Icd Eval With Inerative Adjustmt Dual Lead Completed System 07/04/2017 32762 EKG Tracing & Interpretation Completed 05/28/2017 42619 Moderate Sedation Services; Same Phys Intl 15 Completed Mins; PT >=5 Years 05/28/2017 08516 Color Flow Doppler/Interp & Reprt Completed 05/28/2017 45228 Pulse Wave/Continuous-Interp.RPT Completed 05/28/2017 29418 Echocardiography, Transesophageal, Real Time Completed W/Image 2D W/W/O M-M 05/07/2017 01076 Icd Eval With Inerative Adjustmt Dual Lead Completed System 05/07/2017 25049 Icd Eval With Inerative Adjustmt Dual Lead Completed System 05/06/2017 78435 EKG Tracing & Interpretation Completed 04/23/2017 35043 Treadmill Interp/Report Only Completed 04/23/2017 51944 Stress Test Supervsn W/Out I/R Completed 02/21/2017 67590 EKG Tracing & Interpretation Completed 02/21/2017 48536 Icd Eval With Inerative Adjustmt Dual Lead Completed System 02/21/2017 20565 Icd Eval With Inerative Adjustmt Dual Lead Completed System 02/21/2017 85018 Icd Eval With Inerative Adjustmt Dual Lead Completed System 02/20/2017 61824 ECHO Transthoracic, Real-Time 2D With Doppler Completed And Color Flow 02/20/2017 29083 ECHO Transthoracic, Real-Time 2D With Doppler Completed And Color Flow 12/12/2016 97767 Icd Eval With Inerative Adjustmt Dual Lead Completed System 12/12/2016 84442 Icd Eval With Inerative Adjustmt Dual Lead Completed System 12/10/2016 56369 EKG Tracing & Interpretation Completed 12/10/2016 43191 EKG Tracing & Interpretation Completed 09/25/2016 07174 Icd Eval With Inerative Adjustmt Dual Lead Completed System 09/09/2016 71491 EKG Tracing & Interpretation Completed 07/19/2016 57782 Echocardiogram, Limited Study Completed 06/28/2016 03657 Polysomnography Sleep Staging 4+ Parameters Completed 06/18/2016 63889 Icd Eval With Inerative Adjustmt Dual Lead Completed System 04/02/2016 25551 Icd Eval With Inerative Adjustmt Dual Lead Completed System 03/28/2016 21726 EKG Tracing & Interpretation Completed 03/25/2016 45660 ECHO Transthoracic, Real-Time 2D With Doppler Completed And Color Flow 02/15/2016 26714 EKG, Interpretation Only Completed 01/09/2016 14214 Icd Eval With Inerative Adjustmt Dual Lead Completed System 01/01/2016 41380 EKG Tracing & Interpretation Completed 12/28/2015 62556 EKG, Interpretation Only Completed 12/27/2015 06063 Percutaneous Transcatheter Placement Of Completed Intracoronary Stent 12/27/2015 18985 Percutaneous Transcatheter Placement Of Completed Intracoronary Stent 12/27/2015 26071 EKG, Interpretation Only Completed 12/27/2015 12009 Left Heart Cath. Incl S/I Coronaries, Angio S/I Completed V Gram If Done 12/27/2015 78483 Intravascular Blood Flow Velocity Completed 11/20/2015 13645 Echocardiogram, Limited Study Completed 10/16/2015 65317 Icd Eval With Inerative Adjustmt Dual Lead Completed System 09/25/2015 65198 Holter Monitor Review (24 hr)dr review & interp Completed only 09/21/2015 48876 ECG Monitor/Recording W/Visual Superimposition Completed Scanning 09/18/2015 60435 EKG Tracing & Interpretation Completed 07/06/2015 20041 Interrogation Device Eval In Person W/DR Completed Analysis,Single,Dual,Mul 05/29/2015 85869 ECHO Transthoracic, Real-Time 2D With Doppler Completed And Color Flow 03/28/2015 53847 Interrogation Device Eval In Person W/DR Completed Analysis,Single,Dual,Mul 01/19/2015 93048 Icd Check Single,Dual Or Multiple In Person Completed W/DR Incl Heart Rhyth 12/26/2014 61516 EKG Tracing & Interpretation Completed 12/22/2014 63072 Treadmill Interp/Report Only Completed 12/22/2014 48047 Stress Test Supervsn W/Out I/R Completed 11/08/2014 13594 EKG Tracing & Interpretation Completed 10/28/2014 00910 Icd Eval With Inerative Adjustmt Dual Lead Completed System 08/04/2014 06670 ECHO Transthoracic, Real-Time 2D With Doppler Completed And Color Flow 07/27/2014 73492 Icd Check Single,Dual Or Multiple In Person Completed W/ Incl Heart [facility] 05/02/2014 81198 Treadmill Interp/Report Only Completed 05/02/2014 85612 Stress Test Supervsn W/Out I/R Completed 05/02/2014 91774 EKG, Interpretation Only Completed 05/01/2014 43324 EKG, Interpretation Only Completed 04/18/2014 17247 Icd Eval With Inerative Adjustmt Dual Lead Completed System 04/11/2014 16074 EKG Tracing & Interpretation Completed 04/06/2014 39687 EKG, Interpretation Only Completed 02/03/2014 84338 Icd Eval With Iterative Adjustmt Multiple Lead Completed System 10/29/2013 02378 Icd Check Single,Dual Or Multiple In Person Completed W/ Incl Heart [facility] 09/29/2013 06658 Treadmill Interp/Report Only Completed 09/29/2013 78632 Stress Test Supervsn W/Out I/R Completed 09/23/2013 80364 Treadmill Interp/Report Only Completed 09/23/2013 66280 Stress Test Supervsn W/Out I/R Completed 08/04/2013 20013 ECHO Transthoracic, Real-Time 2D With Doppler Completed And Color Flow 07/27/2013 14619 Icd Check Single,Dual Or Multiple In Person Completed W/ Incl Heart [facility] 07/26/2013 37412 EKG Tracing & Interpretation Completed 05/25/2013 02069 Icd Check Single,Dual Or Multiple In Person Completed W/ Incl Heart [facility] 01/26/2013 05310 Icd Check Single,Dual Or Multiple In Person Completed W/ Incl Heart [facility] 12/24/2012 60277 Treadmill Interp/Report Only Completed 12/24/2012 68869 Stress Test Supervsn W/Out I/R Completed 12/08/2012 56607 ECHO Transthoracic, Real-Time 2D With Doppler Completed And Color Flow 11/24/2012 10643 EKG Tracing & Interpretation Completed 11/03/2012 43322 Icd Check Single,Dual Or Multiple In Person Completed W/ Incl Heart [facility] 09/03/2012 62919 Xray Knee 3 Views Completed 09/03/2012 34532 Rad Exam; Knee, Ap&L Completed 07/30/2012 82086 EKG Tracing & Interpretation Completed 07/07/2012 86889 Holter Monitoring 24 HR New Completed 06/25/2012 77441 Icd Check Single,Dual Or Multiple In Person Completed W/ Incl Heart [facility] 06/09/2012 13152 EKG Tracing & Interpretation Completed 05/28/2012 47371 Color Flow Doppler/Interp & Reprt Completed 05/28/2012 89848 Pulse Wave/Continuous-Interp.RPT Completed 05/28/2012 97626 ECHO Transthorasic Realtime 2D W Doppler & Completed Color Flow Hosp 05/26/2012 66356 EKG Tracing & Interpretation Completed 04/02/2012 88508 Icd Check Single,Dual Or Multiple In Person Completed W/ Incl [facility] 11/21/2011 71847 Icd Check Single,Dual Or Multiple In Person Completed W/ Incl [facility] 07/11/2011 14679 ECHO Transthoracic, Real-Time 2D With Doppler Completed And Color Flow 06/20/2011 67763 Icd Check Single,Dual Or Multiple In Person Completed W/ Incl Heart [facility] 06/04/2011 31125 EKG Tracing & Interpretation Completed 02/28/2011 77530 Icd Check Single,Dual Or Multiple In Person Completed W/ Incl [facility] 01/17/2011 12044 Xray Knee 3 Views Completed R 01/17/2011 72693 Rad Exam; Knee, Ap&L Completed 01/17/201175100 Inject/Drain Joint/Bursa Major W/O US Completed 12/26/2010 18660 Icd Check Single,Dual Or Multiple In Person Completed W/ Incl [facility] 10/03/2010 02296 Icd Check Single,Dual Or Multiple In Person Completed W/ Incl [facility] 07/12/2010 26073 Treadmill Interp/Report Only Completed 07/12/2010 13914 Stress Test Supervsn W/Out I/R Completed 07/04/2010 31023 ECHO Transthoracic, Real-Time 2D With Doppler Completed And Color Flow 06/12/2010 21640 Icd Check Single,Dual Or Multiple In Person Completed W/ Incl [facility] 06/06/2010 58568 EKG Tracing & Interpretation Completed 03/15/2010 43692 Icd Check Single,Dual Or Multiple In Person Completed W/ Incl [facility] 01/05/2010 63157 Icd Check Single,Dual Or Multiple In Person Completed W/ Incl [facility] 10/18/2009 90467 EKG Tracing & Interpretation Completed 10/12/2009 84019 Icd Eval With Inerative Adjustmt Dual Lead Completed System 08/10/2009 07377 Icd Check Single,Dual Or Multiple In Person Completed W/DR Law Heart [facility] 07/10/2009 99469 ECHO Transthoracic, Real-Time 2D With Doppler Completed And Color Flow 06/21/2009 83216 EKG Tracing & Interpretation Completed 06/14/2009 43761 Left Heart Catheterization Completed 06/14/2009 85261 Inj Proc LFT Vent/LFT Atrl Angio Completed 06/14/2009 45691 Coronary Angiography Completed 06/14/2009 69421 S/I/R Inj Proc Vent And Or Atrial Completed 06/14/2009 78584 Selective Coronary Angioplasty Completed 06/08/2009 50071 Icd Check Single,Dual Or Multiple In Person Completed W/DR Law Heart [facility] 06/07/2009 40833 EKG Tracing & Interpretation Completed 05/16/2009 38498 Treadmill Interp/Report Only Completed 05/16/2009 31220 Stress Test Supervsn W/Out I/R Completed 04/25/2009 20577 EKG Tracing & Interpretation Completed 03/16/2009 38553 Icd Check Remote Up To 90 Days Completed Single,Dual,Multiple Lead 12/08/2008 90270 Icd Check Single,Dual Or Multiple In Person Completed Aaron/DR Law Heart [facility] 12/01/2008 75550 EKG, Interpretation Only Completed 12/01/2008 23980 EKG Tracing & Interpretation Completed 11/10/2008 90842 ECHO Transthoracic, Real-Time 2D With Doppler Completed And Color Flow 09/08/2008 97166 Icd Check Single,Dual Or Multiple In Person Completed Aaron/DR Law Heart [facility] 07/05/2008 11464 EKG Tracing & Interpretation Completed 06/09/2008 79748 Icd Check Single,Dual Or Multiple In Person Completed Aaron/DR Law Heart [facility] 03/31/2008 87604 EKG Tracing & Interpretation Completed 03/18/2008 44046 Color Doppler Completed 03/18/2008 54678 Pulse Doppler & Continuous Wave Completed 03/18/2008 64978 Echocardiogram Completed 03/18/2008 99013 ECHO Transthoracic, Real-Time 2D With Doppler Completed And Color Flow 03/17/2008 51133 Icd Check Single,Dual Or Multiple In Person Completed Aaron/DR Law Heart [facility] 03/10/2008 08105 EKG Tracing & Interpretation Completed 03/10/2008 64600 EKG Tracing & Interpretation Completed 03/10/2008 47941 EKG Tracing & Interpretation Completed 02/04/2008 74602 Analysis Aicd DC W/Out Reprogramg Completed 11/25/2007 99986 EKG Tracing & Interpretation Completed 10/23/2007 12959 Color Doppler Completed 10/23/2007 35411 Color Doppler Completed 10/23/2007 41290 Pulse Doppler & Continuous Wave Completed 10/23/2007 68131 Pulse Doppler & Continuous Wave Completed 10/23/2007 11487 Pulse Doppler & Continuous Wave Completed 10/23/2007 18096 Echocardiogram Completed 10/23/2007 09163 Echocardiogram Completed 06/17/2007 76513 EKG Tracing & Interpretation Completed 06/17/2007 96520 EKG Tracing & Interpretation Completed 05/28/2007 47506 Color Doppler Completed 05/28/2007 77837 Pulse Doppler & Continuous Wave Completed 05/28/2007 79114 Pulse Doppler & Continuous Wave Completed 05/28/2007 87908 Echocardiogram Completed 05/28/2007 61454 Holter Monitor Completed 05/28/2007 40683 Holter Monitor Completed 04/16/2007 22801 EKG Tracing & Interpretation Completed 04/06/2007 02546 Com RT And LT Catheterization Completed 04/06/2007 21967 Com RT And LT Catheterization Completed 04/06/2007 52043 Inj Proc LFT Vent/LFT Atrl Angio Completed 04/06/2007 61647 Coronary Angiography Completed 04/06/2007 91234 Coronary Angiography Completed 04/06/2007 24042 S/I/R Inj Proc Vent And Or Atrial Completed 04/06/2007 33813 Selective Coronary Angioplasty Completed 04/06/2007 05578 Selective Coronary Angioplasty Completed 04/03/2007 32262 Color Flow Doppler/Interp & Reprt Completed 04/03/2007 52650 Pulse Wave/Continuous-Interp.RPT Completed 04/03/2007 03484 Pulse Wave/Continuous-Interp.RPT Completed 04/03/2007 29143 Echocardiogram Completed 04/03/2007 12954 EKG, Interpretation Only Completed 04/03/2007 27931 EKG, Interpretation Only Completed Encounters Type Date Location Provider CPT E/M Dx [facility] Coffey 12931 N17.9 8:04a Hospitalists I50.9 D50.9 N18.9 E11.22 J44.9 I48.91 Office Visit 11/07/2017 8:04a [facility], CHERELLE Coffey 79647 I48.91 Hospitalists N18.9 E11.22 J44.9 E87.5 I42.9 Office Visit 11/06/2017 10:46a [facility] Arnulfo Kelley M.D. 55229 R55 I42.9 Z95.810 I25.10 I48.91 I50.9 Office Visit 11/06/2017 8:04a [facility], CHERELLE Coffey 99147 R55 Hospitalists N18.9 E11.22 I13.10 I48.91 I42.9 Office Visit 11/05/2017 8:03a [facility], CHERELLE Coffey 31875 R55 Hospitalists I48.91 N18.9 I42.9 J44.9 E11.22 Office Visit 11/04/2017 8:03a [facility], [place] [address] R07.9 Hospitalists R55 I48.91 N17.9 N18.9 J44.9 E11.22 Office Visit 07/18/2017 8:19a [facility], [place] [address] R73.9 Hospitalists MD Maddie I50.22 I25.118 J98.11 Office Visit 07/04/2017 10:40a [facility] 19880 I48.91 Ashely German M.D. Z79.01 I42.9 I35.1 I34.0 I36.1 I27.20 I25.10 Office Visit 06/04/2017 8:38a [facility], Wilbert Baxter, 16417 I50.21 Hospitalists M.Harjinder E11.9 I10 I48.91 Office Visit 06/03/2017 8:37a [facility], Wilbert Baxter, 58948 I50.21 Hospitalists M.DLina E11.9 I10 I48.91 Office Visit 06/02/2017 8:36a [facility], Wilbert Baxter, 76806 I50.21 Hospitalists M.DLina E11.9 I10 I48.91 Office Visit 06/01/2017 8:30a [facility],pc Aileen Dunn, N.P. 01788 I50.21 Hospitalists E11.9 I10 I48.91 Office Visit 05/22/2017 9:27a [facility],pc Lulu Perfecto, 78846 D64.9 Hospitalists M.DLina R09.02 I48.91 Office Visit 05/21/2017 9:26a [facility],[place] [address] D64.9 Hospitalists R09.02 I48.91 R19.7 Office Visit 05/06/2017 8:30a [facility] Of Bhargavi Sheikh, 94800 I25.5 Ashely N.P. G47.33 I48.91 R04.0 I25.10 Z95.810 Office Visit 05/04/2017 8:58a [facility], Driss Corado, 18605 I20.8 Hospitalists Etelvina I47.2 R04.0 Z45.02 Office Visit 05/03/2017 8:57a [facility] 26079 I20.8 Hospitalists DANIEL Corado I47.2 R04.0 Z45.02 Office Visit 05/02/2017 10:57a [facility] 52767 R04.0 Hospitalists DANIEL Corado E87.5 I25.118 N18.9 Office Visit 04/16/2017 2:15p [facility] Macey Cespedes, 47118 G47.33 Services Of Ashely GROSS RN, [facility]- Office Visit 02/21/2017 3:20p [facility] Timmy Mercado 21503 I47.2 Etelvina German I25.9 Z95.810 I25.5 R55 Z95.810 I10 G47.33 I48.91 R94.31 Office Visit 02/19/2017 10:00a [facility] CHERELLE Mancuso 78628 Z95.810 R55 I10 I25.5 Office Visit 01/01/2017 10:00a [facility] Macey Cespedes 62801 G47.33 Services Of [facility] LIS GROSS, [facility] Office Visit 12/10/2016 2:30p [facility] Of CHERELLE Mancuso 37191 I47.2 [facility] I25.9 Z95.810 I10 Office Visit 11/01/2016 11:00a [facility] Macey Cespedes, 14916 G47.33 Services Of [facility] LIS GROSS, [facility] G47.14 R04.0 Office Visit 09/09/2016 [facility] Maghajayec, 12874 G47.33 M.D. I42.9 I25.9 E78.5 I25.110 R94.31 Office Visit 08/30/2016 11:00a [facility] Macey Cespedes, 72568 G47.33 Services Of [facility] LIS GROSS, [facility] G47.14 Office Visit 07/19/2016 10:45a [facility] Macey Cespedes, 26430 G47.33 Services Of [facility] LIS GROSS, [facility] G47.14 Office Visit 07/10/2016 1:00p [facility] CHERELLE Mancuso 85227 I42.9 I25.9 R00.0 E87.5 E78.5 Office Visit 07/05/2016 3:30p [facility] Of [facility] CHERELLE Mancuso 02047 I25.9 R21 I42.9 R00.0 I10 Office Visit 06/12/2016 10:15a [facility] [place] [address] R06.83 Services Of [facility] G47.10 Office Visit 03/28/2016 3:30p [facility] CHERELLE Mancuso 61065 I42.9 R06.83 Z95.810 I25.118 M79.604 Office Visit 02/15/2016 10:20a [facility],[place] [address] R07.9 Hospitalists I25.10 I10 Office Visit 01/01/2016 1:40p [facility] Maghanisha, 82406 I42.9 M.D. I25.10 I10 E78.5 R94.31 Office Visit 12/28/2015 3:28p [facility] Of Isidro Andres M.D., 00105 I25.110 [facility], [facility] Office Visit 12/04/2015 1:40p [facility] Qutaybeh S. 08759 I42.9 Etelvina German I25.10 I10 E78.5 Office Visit 10/19/2015 3:00p [facility] Of CHERELLE Mccallum 16361 Z95.810 I42.9 R00.0 E78.5 Office Visit 09/18/2015 3:00p [facility] Qutaybeh S. Maghaydah, 65098 I42.9 M.D. Z95.810 I25.10 I10 R00.0 I44.0 Office Visit 04/21/2015 3:00p [facility] CHERELLE Mancuso 19782 I42.9 Z95.810 I25.10 I10 R53.83 Office Visit 12/26/2014 2:40p [facility] Qutaybeh S. Maghaydah, 04912 I42.8 M.D. Z95.810 I25.10 I10 Office Visit 11/08/2014 1:20p [facility] Qutaybeh S. Maghaydah, 15960 Z95.810 M.D. I42.8 I25.9 E11.9 R07.89 Office Visit 07/07/2014 3:30p [facility] CHERELLE Mancuso 19279 250.00 414.9 787.01 783.21 V45.02 285.9 Office Visit 05/04/2014 8:17a [facility], Alexia Stanton, 88806 599.0 Hospitalists D.O. 592.0 038.9 250.00 Office Visit 05/03/2014 10:26a [facility] Qutaybeh S. Maghaydah, 80432 786.50 M.D. 794.31 Office Visit 05/03/2014 8:17a [facility], Alexia Stanton, 44618 599.0 Hospitalists D.O. 592.0 038.9 790.6 Office Visit 05/02/2014 11:23a [facility] Qutaybeh S. haydah, 09418 414.9 M.D. 414.8 425.4 Office Visit 05/02/2014 8:15a [facility], Alexia Maximino, 16955 599.0 Hospitalists D.O. 592.0 038.9 790.6 Office Visit 05/01/2014 8:15a [facility], Aileen Dunn, N.P. 85348 599.0 Hospitalists 592.0 038.9 250.00 Office Visit 04/30/2014 8:13a [facility], Aileen Dunn, N.P. 52635 599.0 Hospitalists 592.0 038.9 250.00 Office Visit 04/11/2014 1:20p [facility] Qutaybeh S. Monserrat, 75511 425.4 M.D. 401.9 425.9 V45.02 414.01 Office Visit 04/07/2014 10:34a [facility], Jose Humphreys, 41694 592.0 Hospitalists M.D. 425.4 250.00 401.9 Office Visit 04/06/2014 9:06a [facility] Arnulfo Kelley M.D. 60319 414.9 425.9 427.1 Office Visit 04/06/2014 10:34a [facility], Jose Humphreys, 14178 592.0 Hospitalists M.D. 425.4 250.00 401.9 Office Visit 04/05/2014 10:33a [facility], Gary Richardson, 00067 592.0 Hospitalists N.P. 425.4 250.00 401.9 Office Visit 09/23/2013 2:06p [facility] Jenisetaybeh S. Monserrat, 11915 425.4 M.D. 786.50 Office Visit 09/14/2013 1:30p [facility] CHERELLE Mancuso 33098OLW 786.50 414.01 794.31 425.9 V45.02 Office Visit 07/26/2013 4:00p [facility] Jenisetaybeh S. Monserrat, 75878 786.50 M.DLina 414.01 794.31 V45.02 Office Visit 12/24/2012 10:30a [facility] Timmy German, 20473 794.31 M.D. 414.9 414.8 Office Visit 11/24/2012 9:20a [facility] Pedritoybbrennan German, 43950 V45.02 M.D. 425.9 401.1 414.01 794.31 414.8 V72.81 786.05 Office Visit 10/16/2012 11:00a [facility] Leobardo Reynoso, 90644 724.03 Of Ashely Main Office Visit 10/01/2012 10:15a [facility] Of Edmund Jasso, 34030 724.03 CVic Main Office Visit 09/03/2012 1:15p [facility] Edmund Jasso, 52783 724.3 C.Flip Main 719.46 Office Visit 07/30/2012 4:00p [facility] Nurse Visit 87324 401.1 Office Visit 06/09/2012 2:20p [facility] Timmy German, 40566 794.31 M.DLina 414.01 425.9 401.1 785.0 Office Visit 05/26/2012 10:00a [facility] Timmy SLina German, 49321 425.9 M.D. V45.02 414.01 401.1 794.31 272.4 785.0 786.05 Office Visit 08/12/2011 3:00p [facility] Leia Katz, N.P. 20099 414.01 425.9 401.1 Office Visit 07/25/2011 2:15p [facility] Jasso, 62362 717.7 C.Flip Main Office Visit 06/27/2011 9:30a [facility] [place]. 38[address] 794.31 Etelvina German 414.01 425.9 414.8 401.1 786.50 Office Visit 06/04/2011 2:00p [facility] Jenisetaybbrennan SLina German, 28058 425.9 M.D. 786.50 794.31 401.1 272.4 V45.02 Office Visit 05/24/2011 8:15a [facility] Edmund Jasso, 28557 724.3 C.M.ALina MKiara Office Visit 01/17/2011 10:00a [facility] Of Jaz Avelar, 52966 719.46 C.M.[place]. RPA-C 717.9 836.0 Office Visit 07/12/2010 9:30a [facility] Jenisetaybbrennan S. Monserrat, 14307 794.31 M.DLina 412 414.01 401.1 272.4 Office Visit 06/06/2010 10:00a [facility] Qutaybbrennan S. Monserrat, 34461 794.31 M.D. 425.4 425.9 V45.02 401.9 414.01 272.4 Office Visit 10/18/2009 8:40a [facility] Jenisetaybbrennan S. Monserrat, 57115 425.9 M.D. V45.02 401.9 414.01 Office Visit 06/21/2009 11:20a [facility] Jenisetaybbrennan S. Monserrat, 15428 401.9 M.D. 414.01 272.4 Office Visit 06/16/2009 3:15a [facility], Ismael Morales M.D. 72275 250.00 Hospitalists 401.9 272.4 414.9 Office Visit 06/15/2009 3:00a [facility],shweta Morales M.D. 26315 250.02 Hospitalists 414.9 401.9 790.99 Office Visit 06/14/2009 1:15[place] [facility] [place] [address] 790.29 Assoc, Tonya Main Office Visit 06/14/2009 12:00p [facility] Jenisetaradha SLina 26781 414.01 Etelvina German 786.50 425.9 414.9 Office Visit 06/07/2009 10:00a [facility] Jenisetaybbrennan SLina German, 10715 414.01 M.DLina 414.8 V45.02 425.9 401.1 Office Visit 04/25/2009 2:20p [facility] Qutaybeh S. Maghaydah, 15945 V45.02 M.D. 425.9 414.01 401.1 Office Visit 03/20/2009 12:45a [facility], Lulu Grove, 80801 682.9 Hospitalists M.D. 250.00 428.0 Office Visit 03/19/2009 1:00a [facility], Lulu Grove, 00825 682.9 Hospitalists M.D. 250.00 428.0 Office Visit 03/18/2009 12:15a [facility], Jose Humphreys, 59542 682.9 Hospitalists M.D. 250.00 790.29 428.0 Office Visit 12/01/2008 2:20p [facility] Qutaybeh S. Maghaydah, 67469 V45.02 M.D. 425.9 414.01 401.0 Office Visit 07/05/2008 3:20p [facility] Qutaybeh S. Maghaydah, 01525 425.9 M.D. V45.02 414.01 401.0 786.05 Office Visit 03/31/2008 1:40p [facility] Qutaybeh S. Maghaydah, 11045 425.9 M.D. V45.02 414.01 272.4 250.00 786.05 Office Visit 03/10/2008 12:40p [facility] Qutaybeh S. Maghaydah, 55784 414.01 M.D. 425.9 272.4 250.00 786.05 786.50 Office Visit 02/04/2008 11:00a [facility] Qutaybeh S. Maghaydah, 78622 414.01 M.D. 425.9 272.4 250.00 427.69 Office Visit 11/25/2007 8:40a [facility] Qutaybeh S. Maghaydah, 82811 414.01 M.D. 425.9 786.05 786.50 272.4 250.00 Office Visit 06/17/2007 11:20a [facility] Qutaybeh S. Maghaydah, 85604 414.01 M.DLina 425.9 786.05 786.50 272.4 250.00 278.0 427.69 785.0 Office Visit 04/16/2007 3:00p [facility] Timmy German, 21666 414.01 M.DLina 425.9 401.0 272.4 786.05 250.00 278.0 Plan of Care 12/29/2017 - Bhargavi Sheikh, N.P.N18.9 Chronic kidney disease, wzjsshpqewtV95.9 Heart failure, jmpimdkykcaN38.1 Supraventricular tachycardiaRecommendations: INCREASE Metoprolol to 1 tab 2x daily. 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 02/2018
[2018-01-16 18:30] LABS: ABS Basophils 0.1 10^3/ul (0-0.2); ABS Eosinophils 0.2 10^3/ul (0-0.6); ABS Lymphocytes 1.8 10^3/ul (1.0-4.8); ABS Monocytes 0.8 10^3/ul (0-0.8); ABS Neutrophils 8.2 10^3/ul (1.5-7.7); ABS Nucleated RBC 0 10^3/ul; Eosinophil % 1.5 %; Hematocrit 37 % (42-52); Hemoglobin 11.3 g/dl (14.0-18.0); Lymphocyte % 16.5 %; Mean Corpuscular HGB Conc 30 g/dl (31-36); Mean Corpuscular Hemoglobin 22 pg (27-31); Mean Corpuscular Volume 71 fL (80-94); Mean Platelet Volume 8.7 fL (7.4-10.4); Nucleated Red Blood Cells % 0; Platelet Count 274 10^3/ul (150-450); Red Blood Count 5.26 10^6/ul (4.00-5.40); Red Cell Distribution Width 19 % (10.5-15)
--- NOTE | 2018-01-16 20:58 | ED ---
Lower Extremity - HPI Summary HPI Summary: The patient is a 57 y/o M presenting to [facility] with a chief complaint of BLE edema and abdominal distension starting within the last few days. These symptoms occur occasionally because he is on lasix. His aide spoke with his PCP , Dr. Feliz, who instructed the patient to come to the ED. He denies changes in BM or urinary symptoms, CP, and abd pain. Hx of CHF, HTN, diabetes, CAD. - History of Current Complaint Chief Complaint: EDExtremityLower Stated Complaint: FLUID RETENTION Time Seen by Provider: 01/16/18 20:33 Hx Obtained From: Patient Mechanism Of Injury: Other - on lasix, swelling occurs occasionally Onset of Pain: Days - past few days Onset/Duration: Still Present Severity Initially: Mild Severity Currently: Mild Pain Intensity: 0 Pain Scale Used: 0-10 Numeric Timing: Lasting Days Location: Other - BLE swelling Character Of Pain: Dull Associated Signs And Symptoms: Positive: Swelling - BLE, Other - POSITIVE: abdominal distension; NEGATIVE: CP, BM and urinary changes. Negative: Abdominal Pain Aggravating Factor(s): Nothing Alleviating Factor(s): Nothing Able to Bear Weight: Yes - Allergies/Home Medications Allergies/Adverse Reactions: Allergies Allergy/AdvReac Type Severity Reaction Status Date / Time shellfish derived Allergy Unknown Verified 01/01/18 15:15 Reaction Details Contrast dye Allergy Unknown Uncoded 01/01/18 15:15 Reaction Details PMH/Surg Hx/FS Hx/Imm Hx Endocrine/Hematology History: Reports: Hx Diabetes Denies: Hx Anticoagulant Therapy, Hx Blood Disorders, Hx Blood Transfusions, Hx Bone Marrow Disease, Hx Systemic Lupus Erythematosus, Hx Sickle Cell Disease , Hx Thyroid Disease, Hx Anemia, Hx Unexplained Bleeding, Other Endocrine/ Hematological Disorders Cardiovascular History: Reports: Hx Angina, Hx Angioplasty, Hx Atrial Fibrillation, Hx Auto Implanted Cardiovert Defib, Hx Congestive Heart Failure, Hx Coronary Artery Disease, Hx Hypercholesterolemia, Hx Hypertension, Hx Pacemaker/ICD - 2008 Denies: Hx Aneurysm, Hx Cardiac Arrest, Hx Cardiomegaly, Hx Congenital Heart Disease, Hx Deep Vein Thrombosis, Hx Embolism, Hx Hypotension, Hx Myocardial Infarction, Hx Peripheral Vascular Disease, Hx Rheumatic Fever, Hx Syncope, Hx Valvular Heart Disease, Other Cardiovascular Problems/Disorders Respiratory History: Reports: Hx 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, Hx Chronic Obstructive Pulmonary Disease (COPD), Hx Sleep Apnea Denies: Hx Chronic Bronchitis, Hx Cystic Fibrosis, Hx Lung Cancer, Hx Pleural Effusion, Hx Pneumonia, Hx Pulmonary Edema, Hx Pulmonary Embolism, Hx Seasonal Allergies, Other Respiratory Problems/Disorders GI History: Reports: Hx Gastroesophageal Reflux Disease Denies: Hx Cirrhosis, Hx Crohn's Disease, Hx Diverticulosis, Hx Gall Bladder Disease, Hx Gastrointestinal Bleed, Hx Hiatal Hernia, Hx Irritable Bowel, Hx Jaundice, Hx Obstructive Bowel, Hx Ileostomy, Hx Pyloric Stenosis, Hx Ulcer, Other GI Disorders History: Reports: Hx Kidney Stones - LEFT Denies: Hx Acute Renal Failure, Hx Benign Prostatic Hyperplasia, Hx Chronic Renal Failure, Hx Dialysis, Hx Kidney Infection, Hx Renal Disease, Other Problems/Disorders Musculoskeletal History: Reports: Hx Arthritis - BILATERAL HANDS AND LEGS Denies: Hx Back Problems, Hx Bursitis, Hx Congenital Bone Abnormalities, Hx Fibromyalgia, Hx Gout, Hx Orthopedic Injury, Hx Osteoporosis, Hx Scoliosis, Hx Tendonitis, Other Musculoskeletal History Sensory History: Denies: Hx Cataracts, Hx Contacts or Glasses, Hx Eye Injury, Hx Glaucoma, Hx Hearing Aid, Hx Hearing Problem Opthamlomology History: Denies: Hx Cataracts, Hx Contacts or Glasses, Hx Eye Injury, Hx Glaucoma Neurological History: Denies: Hx Dementia, Hx Headaches, Hx Migraine, Hx Seizures, Hx Transient Ischemic Attacks (TIA), Other Neuro Impairments/Disorders Psychiatric History: Reports: Hx Depression Denies: Hx Anxiety, Hx Attention Deficit Hyperactivity Disorder, Hx Eating Disorder, Hx Panic Disorder, Hx Post Traumatic Stress Disorder, Hx Inpatient Treatment, Hx Community Mental Health Tx, Hx Schizophrenia, Hx Bipolar Disorder , Hx Suicide Attempt, Hx of Violent Episodes Against Others, Hx Substance Abuse , Other Psychiatric Issues/Disorders - Surgical History Surgery Procedure, Year, and Place[place] [facility] [place] [facility] [place]O, L STENT, L ESW[place] [facility] [place] X3 [place], 2016 Hx Anesthesia Reactions: No - Immunization History Date of Tetanus Vaccine: Unknown Infectious Disease History: No Infectious Disease History: Denies: Hx Clostridium Difficile, Hx Hepatitis, Hx Human Immunodeficiency Virus (HIV), Hx Tuberculosis, Traveled Outside the [place] in Last 30 Days - Family History Known Family History: Positive: Cardiac Disease, Hypertension - Social History Alcohol Use: None Alcohol Amount: 2-3 PER DAY Substance Use Type: Reports: None Smoking Status (MU): Former Smoker Type: Cigarettes Amount Used/How Often: 2 PACKS A DAY Length of Time of Smoking/Using Tobacco: about 20 years,not sure Have You Smoked in the Last Year: No Review of Systems Negative: Chest Pain Positive: Other - POSITIVE: abdominal distension; NEGATIVE: changes in BM. Negative: Abdominal Pain Positive: other - NEGATIVE: urinary symptoms Positive: Edema - BLE All Other Systems Reviewed And Are Negative: Yes Physical Exam - Summary Physical Exam Summary: Appearance: Well appearing, no pain distress Skin: warm, dry, reflects adequate perfusion Head/face: normal Eyes: EOMI, ANUEL ENT: normal Neck: supple, non-tender Respiratory: CTA, breath sounds present Cardiovascular: RRR, pulses symmetrical Abdomen: non-tender, soft, mildly distended Musculoskeletal: strength/ROM intact, bilateral pedal edema Neuro: normal, sensory motor intact, A&Ox3 Triage Information Reviewed: Yes Vital Signs On Initial Exam: Initial Vitals Temp Pulse Resp BP Pulse Ox 97.8 F 64 18 147/75 96 01/16/18 15:38 01/16/18 15:38 01/16/18 15:38 01/16/18 15:38 01/16/18 15:38 Vital Signs Reviewed: Yes Diagnostics - Vital Signs Vital Signs Temp Pulse Resp BP Pulse Ox 01/16/18 18:33 98.7 F 65 20 117/71 100 01/16/18 15:38 97.8 F 64 18 147/75 96 - Laboratory Lab Results: Lab Results 01/16/18 01/16/18 01/16/18 Range/Units 18:06 18:06 18:06 WBC 11.0 H (3.5-10.8) 10^3/ul RBC 5.26 (4.00-5.40) 10^6/ul Hgb 11.3 L (14.0-18.0) g/dl Hct 37 L (42-52) % MCV 71 L (80-94) fL MCH 22 L (27-31) pg MCHC 30 L (31-36) g/dl RDW 19 H (10.5-15) % Plt Count 274 (150-450) 10^3/ul MPV 8.7 (7.4-10.4) fL Neut % (Auto) 74.2 % Lymph % (Auto) 16.5 % [place] % (Auto) 6.9 % Eos % (Auto) 1.5 % Baso % (Auto) 0.9 % Absolute Neuts (auto) 8.2 H (1.5-7.7) 10^3/ul Absolute Lymphs (auto) 1.8 (1.0-4.8) 10^3/ul Absolute Monos (auto) 0.8 (0-0.8) 10^3/ul Absolute Eos (auto) 0.2 (0-0.6) 10^3/ul Absolute Basos (auto) 0.1 (0-0.2) 10^3/ul Absolute Nucleated RBC 0 10^3/ul Nucleated RBC % 0 Sodium 138 (135-145) mmol/L Potassium 4.9 (3.5-5.0) mmol/L Chloride 100 L (101-111) mmol/L Carbon Dioxide 31 (22-32) mmol/L Anion Gap 7 (2-11) mmol/L BUN 44 H (6-24) mg/dL Creatinine 2.03 H (0.67-1.17) mg/dL Est GFR ( Amer) 41.2 (>60) Est GFR (Non-Af Amer) 34.0 (>60) BUN/Creatinine Ratio 21.7 H (8-20) Glucose 71 (70-100) mg/dL Lactic Acid 1.3 (0.5-2.0) mmol/L Calcium 9.4 (8.6-10.3) mg/dL Total Bilirubin 0.50 (0.2-1.0) mg/dL AST 27 (13-39) U/L ALT 20 (7-52) U/L Alkaline Phosphatase 116 H (34-104) U/L C-Reactive Protein 5.54 (<8.01) mg/L B-Natriuretic Peptide (<=100) pg/mL Total Protein 7.1 (6.4-8.9) g/dL Albumin 4.3 (3.2-5.2) g/dL Globulin 2.8 (2-4) g/dL Albumin/Globulin Ratio 1.5 (1-3) Lipase 62 (11.0-82.0) U/L 01/16/18 Range/Units 18:06 WBC (3.5-10.8) 10^3/ul RBC (4.00-5.40) 10^6/ul Hgb (14.0-18.0) g/dl Hct (42-52) % MCV (80-94) fL MCH (27-31) pg MCHC (31-36) g/dl RDW (10.5-15) % Plt Count (150-450) 10^3/ul MPV (7.4-10.4) fL Neut % (Auto) % Lymph % (Auto) % [place] % (Auto) % Eos % (Auto) % Baso % (Auto) % Absolute Neuts (auto) (1.5-7.7) 10^3/ul Absolute Lymphs (auto) (1.0-4.8) 10^3/ul Absolute Monos (auto) (0-0.8) 10^3/ul Absolute Eos (auto) (0-0.6) 10^3/ul Absolute Basos (auto) (0-0.2) 10^3/ul Absolute Nucleated RBC 10^3/ul Nucleated RBC % Sodium (135-145) mmol/L Potassium (3.5-5.0) mmol/L Chloride (101-111) mmol/L Carbon Dioxide (22-32) mmol/L Anion Gap (2-11) mmol/L BUN (6-24) mg/dL Creatinine (0.67-1.17) mg/dL Est GFR ( Amer) (>60) Est GFR (Non-Af Amer) (>60) BUN/Creatinine Ratio (8-20) Glucose (70-100) mg/dL Lactic Acid (0.5-2.0) mmol/L Calcium (8.6-10.3) mg/dL Total Bilirubin (0.2-1.0) mg/dL AST (13-39) U/L ALT (7-52) U/L Alkaline Phosphatase (34-104) U/L C-Reactive Protein (<8.01) mg/L B-Natriuretic Peptide 409 H (<=100) pg/mL Total Protein (6.4-8.9) g/dL Albumin (3.2-5.2) g/dL Globulin (2-4) g/dL Albumin/Globulin Ratio (1-3) Lipase (11.0-82.0) U/L Result Diagrams: 01/16/18 18:06 01/16/18 18:06 Lab Statement: Any lab studies that have been ordered have been reviewed, and results considered in the medical decision making process. - Radiology CXR Radiology Interpretation Completed By: Radiologist Summary of Radiographic Findings: No active infiltrate. ED physician has reviewed this report. Re-Evaluation - Re-Evaluation First Eval Re-Evaluation Time: 21:15 Change: Improved Comment: I spoke with patient about CXR results and discharge home. Lower Extremity Course/Dx - Course Course Of Treatment: The patient is a 57 y/o M presenting to [facility] with a chief complaint of BLE edema and abdominal distension starting within the last few days, possible as a result of lasix for CHF. He denies changes in BM or urinary symptoms, CP, and abd pain. Upon physical exam, the patient has bilateral pedal edema and mild distension of the abdomen. In the ED course, he was given Lasix. Blood and urine obtained. CXR reveals no active infiltrates. Patient is diagnosed with hx of CHF. He will be discharged home with instructions for leg edema and follow up with PCP. Patient agrees with this plan and understands the need for return to the ED for worsening symptoms. - Diagnoses Differential Diagnosis/HQI/PQRI: Positive: Other - chf Provider Diagnoses: History of CHF (congestive heart failure), UTI (urinary tract infection) Discharge - Sign-Out/Discharge Documenting (check all that apply): Patient Departure - Patient will be discharged home. - Discharge Plan Condition: Stable Disposition: HOME Prescriptions: Sulfamethox/Trimethoprim DS* [Bactrim DS 800/160 TAB*] 1 tab PO BID #14 tab Patient Education Materials: Leg Edema (ED) Referrals: Erasmo Hill MD [Primary Care Provider] - 3 Days Additional Instructions: Follow up with your primary care provider in 3 days. Return to the emergency department for any new or worsening symptoms. - Billing Disposition and Condition Condition: STABLE Disposition: Home - Attestation Statements Document Initiated by Scribe: Yes Documenting Scribe: Venecia Velasco Provider For Whom Beni is Documenting (Include Credential): Dr. Joshua Crowder MD Scribe Attestation: Venecia Griffiths scribed for Dr. Joshua Crowder MD on 01/16/18 at 2334. Scribe Documentation Reviewed: Yes Provider Attestation: The documentation as recorded by the Venecia dove accurately reflects the service I personally performed and the decisions made by me, Dr. Joshua Crowder MD Status of Scribe Document: Viewed
[2018-01-16 21:20] VITALS: BP 135/71
[2018-01-16 21:27] LABS: Urine Appearance Clear; Urine Blood Negative (Negative); Urine Color Yellow; Urine Ketones Negative (Negative); Urine Protein Negative (Negative); Urine Red Blood Cell Trace(0-2/hpf) (Absent); Urine Urobilinogen Negative (Negative); Urine White Blood Cell 3+(>20/hpf) (Absent)
== END | disposition home or self-care (01) ==
LOC: ED 15:37
DX: R60.9 Edema, unspecified (principal); I50.9 Heart failure, unspecified; N39.0 Urinary tract infection, site not specified; Z95.0 Presence of cardiac pacemaker
CPT/HCPCS: 36415; 71046; 80053; 81003; 81015; 83605; 83690; 83880; 85025; 86140; 87086; 99283; A9270-GY

== ENCOUNTER 2018-01-26 17:24 | Inpatient (IN) | payer MEDICARE, MEDICAID ==
[2018-01-26] MEDS ORDERED: Dextrose 50% VIAL 50 ml IV ONE (17:44)
[2018-01-26] MEDS ORDERED: Dextrose 50% Syringe 50 ML* 25 GM/50 ML SYRINGE ONE (17:47)
[2018-01-26 18:00] LABS: ABS Basophils 0.1 10^3/ul (0-0.2); ABS Eosinophils 0 10^3/ul (0-0.6); ABS Monocytes 0.5 10^3/ul (0-0.8); ABS Neutrophils 7.4 10^3/ul (1.5-7.7); ABS Nucleated RBC 0 10^3/ul; Eosinophil % 0.3 %; Hematocrit 38 % (42-52); Hemoglobin 11.6 g/dl (14.0-18.0); Lymphocyte % 10.8 %; Mean Corpuscular HGB Conc 30 g/dl (31-36); Mean Corpuscular Hemoglobin 22 pg (27-31); Mean Corpuscular Volume 72 fL (80-94); Mean Platelet Volume 9.1 fL (7.4-10.4); Nucleated Red Blood Cells % 0.1; Platelet Count 237 10^3/ul (150-450); Red Blood Count 5.34 10^6/ul (4.00-5.40); Red Cell Distribution Width 18 % (10.5-15)
--- NOTE | 2018-01-26 18:03 | ED ---
Complex/Multi-Sys Presentation - HPI Summary HPI Summary: The pt is a 57 y/o male brought in by ambulance to [facility] c/o nausea and vomiting for the last one week worsened 1 day ago. He notes lethargy, decreased bowel movements, unproductive cough, abdominal distension, bilateral pedal edema, fever, and chills. He recently saw Dr. Feliz-his PCP who gave him antidiuretics to help him urinate to no relief. SHx: Appendectomy. He has not taken any medications today. Home Medications Medication Instructions Recorded Confirmed Type Albuterol HFA INHALER* [Ventolin 1 puff INH BID PRN 12/07/11 01/01/18 History HFA Inhaler*] Lisinopril TAB* [Prinivil TAB 5 2.5 mg PO QAM 11/30/14 01/01/18 History MG*] Gabapentin CAP(*) [Neurontin 300 300 mg PO BID 07/22/16 01/01/18 History CAP(*)] Omeprazole CAP* [Prilosec CAP* 20 20 mg PO BID 07/22/16 01/01/18 History MG] Cetirizine* [ZyrTEC 10 MG TAB*] 10 mg PO DAILY 04/22/17 01/01/18 History Metoprolol Succinate XL TAB* 25 mg PO DAILY 04/22/17 01/01/18 History [Toprol XL TAB*] Atorvastatin* [Lipitor 80 MG*] 80 mg PO DAILY 05/02/17 01/01/18 History Magnesium Oxide TAB* [MagOx 400 400 mg PO DAILY #30 tab 05/04/17 01/01/18 Rx TAB*] Nitroglycerin TAB 0.4 MG* 0.4 mg SL Q5M PRN #25 tab 05/04/17 01/01/18 Rx Diltiazem TAB* [Cardizem 30 MG 30 mg PO BID 05/21/17 01/01/18 History Tab*] Rivaroxaban TAB(*) [Xarelto 20 mg] 20 mg PO DAILY 05/22/17 01/01/18 History Acetaminophen [Acetaminophen Extra 1,000 mg PO Q12H PRN 06/01/17 01/01/18 History Strength] Aspirin EC TAB* [Ecotrin EC Low 81 mg PO DAILY 06/01/17 01/01/18 History Dose 81 MG*] Budesonide/Formote 160/4.5(NF) 2 puff INH BID 08/06/17 01/01/18 History [Symbicort 160/4.5 (NF)] Sitagliptin Phos/Metformin HCl 1 tab PO BID 08/06/17 01/01/18 History [Janumet 50-1,000 mg Tablet] Al Hydrox/Mg Hydrox/Simet LIQ* 30 ml PO Q6H PRN udc 11/08/17 01/01/18 Rx [Maalox Plus*] Docusate CAP* [Colace Cap*] 100 mg PO BID PRN #60 cap 11/08/17 01/01/18 Rx Ferrous Sulfate TAB* 325 mg PO EVERY OTHER DAY #30 tab 11/08/17 01/01/18 Rx Furosemide TAB* [Lasix TAB*] 40 mg PO DAILY #37 tab 11/08/17 01/01/18 Rx Hydrochlorothiazide TAB* 25 mg PO DAILY #30 tab 11/08/17 01/01/18 Rx [Hydrodiuril TAB*] traMADol TAB* [Ultram*] 50 mg PO Q12H PRN #30 tab MDD 2 11/08/17 01/01/18 Rx tabs Sulfamethox/Trimethoprim DS* 1 tab PO BID #14 tab 01/16/18 Rx [Bactrim DS 800/160 TAB*] - History Of Current Complaint Chief Complaint: EDGeneral Time Seen by Provider: 01/26/18 17:41 Hx Obtained From: Patient Onset/Duration: Lasting Weeks - 1 week, Worse Since - 1 day ago Timing: Constant - Allergies/Home Medications Allergies/Adverse Reactions: Allergies Allergy/AdvReac Type Severity Reaction Status Date / Time Iodinated Contrast- Oral and Allergy Unknown Verified 01/26/18 17:36 IV Dye Reaction Details shellfish derived Allergy Unknown Verified 01/26/18 17:36 Reaction Details Home Medications: Home Medications Sitagliptin Phos/Metformin HCl [Janumet 50-1000 mg] 1 tab PO BID 01/26/18 [ History Confirmed 01/26/18] PMH/Surg Hx/FS Hx/Imm Hx Endocrine/Hematology History: Reports: Hx Diabetes Denies: Hx Anticoagulant Therapy, Hx Blood Disorders, Hx Blood Transfusions, Hx Bone Marrow Disease, Hx Systemic Lupus Erythematosus, Hx Sickle Cell Disease , Hx Thyroid Disease, Hx Anemia, Hx Unexplained Bleeding, Other Endocrine/ Hematological Disorders Cardiovascular History: Reports: Hx Angina, Hx Angioplasty, Hx Atrial Fibrillation, Hx Auto Implanted Cardiovert Defib, Hx Congestive Heart Failure, Hx Coronary Artery Disease, Hx Hypercholesterolemia, Hx Hypertension, Hx Pacemaker/ICD - 2007 Denies: Hx Aneurysm, Hx Cardiac Arrest, Hx Cardiomegaly, Hx Congenital Heart Disease, Hx Deep Vein Thrombosis, Hx Embolism, Hx Hypotension, Hx Myocardial Infarction, Hx Peripheral Vascular Disease, Hx Rheumatic Fever, Hx Syncope, Hx Valvular Heart Disease, Other Cardiovascular Problems/Disorders Respiratory History: Reports: Hx 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, Hx Chronic Obstructive Pulmonary Disease (COPD), Hx Sleep Apnea Denies: Hx Chronic Bronchitis, Hx Cystic Fibrosis, Hx Lung Cancer, Hx Pleural Effusion, Hx Pneumonia, Hx Pulmonary Edema, Hx Pulmonary Embolism, Hx Seasonal Allergies, Other Respiratory Problems/Disorders GI History: Reports: Hx Gastroesophageal Reflux Disease Denies: Hx Cirrhosis, Hx Crohn's Disease, Hx Diverticulosis, Hx Gall Bladder Disease, Hx Gastrointestinal Bleed, Hx Hiatal Hernia, Hx Irritable Bowel, Hx Jaundice, Hx Obstructive Bowel, Hx Ileostomy, Hx Pyloric Stenosis, Hx Ulcer, Other GI Disorders History: Reports: Hx Kidney Stones - LEFT Denies: Hx Acute Renal Failure, Hx Benign Prostatic Hyperplasia, Hx Chronic Renal Failure, Hx Dialysis, Hx Kidney Infection, Hx Renal Disease, Other Problems/Disorders Musculoskeletal History: Reports: Hx Arthritis - BILATERAL HANDS AND LEGS Denies: Hx Back Problems, Hx Bursitis, Hx Congenital Bone Abnormalities, Hx Fibromyalgia, Hx Gout, Hx Orthopedic Injury, Hx Osteoporosis, Hx Scoliosis, Hx Tendonitis, Other Musculoskeletal History Sensory History: Denies: Hx Cataracts, Hx Contacts or Glasses, Hx Eye Injury, Hx Glaucoma, Hx Hearing Aid, Hx Hearing Problem Opthamlomology History: Denies: Hx Cataracts, Hx Contacts or Glasses, Hx Eye Injury, Hx Glaucoma Neurological History: Denies: Hx Dementia, Hx Headaches, Hx Migraine, Hx Seizures, Hx Transient Ischemic Attacks (TIA), Other Neuro Impairments/Disorders Psychiatric History: Reports: Hx Depression Denies: Hx Anxiety, Hx Attention Deficit Hyperactivity Disorder, Hx Eating Disorder, Hx Panic Disorder, Hx Post Traumatic Stress Disorder, Hx Inpatient Treatment, Hx Community Mental Health Tx, Hx Schizophrenia, Hx Bipolar Disorder , Hx Suicide Attempt, Hx of Violent Episodes Against Others, Hx Substance Abuse , Other Psychiatric Issues/Disorders - Surgical History Surgery Procedure, Year, and Place: [place] [facility] [place] [facility] [place] [facility] [place] [facility] [place] MULTIPLE CYSTO, L STENT, L ESWL PROCEDURES [facility] [place] [facility] [place] CARDIAC CATH X3 2009, 2016 Hx Anesthesia Reactions: No - Immunization History Date of Tetanus Vaccine: Unknown Infectious Disease History: No Infectious Disease History: Denies: Hx Clostridium Difficile, Hx Hepatitis, Hx Human Immunodeficiency Virus (HIV), Hx Tuberculosis, Traveled Outside the [place] in Last 30 Days - Family History Known Family History: Positive: Cardiac Disease, Hypertension - Social History Alcohol Use: None Alcohol Amount: 2-3 PER DAY Substance Use Type: Reports: None Smoking Status (MU): Former Smoker Type: Cigarettes Amount Used/How Often: 2 PACKS A DAY Length of Time of Smoking/Using Tobacco: about 20 years,not sure Have You Smoked in the Last Year: No Review of Systems All Other Systems Reviewed And Are Negative: Yes Physical Exam - Summary Physical Exam Summary: Constitutional: Well-developed, Well-nourished, Alert. (-) Distressed Skin: Warm, Dry HENT: Normocephalic; Atraumatic Eyes: Conjunctiva normal Neck: Musculoskeletal ROM normal neck. (-) JVD, (-) Stridor, (-) Tracheal deviation Cardio: Rhythm regular, rate normal, Heart sounds normal; Intact distal pulses; The pedal pulses are 2+ and symmetric. Radial pulses are 2+ and symmetric. (-) Murmur Pulmonary/Chest wall: Effort normal. (-) Respiratory distress, (-) Wheezes, (-) Rales, (+)R basilar crackles Abd: Soft, (-) epigastric tenderness, (+) Distension, (-) Guarding, (-) Rebound , a protuberant with umbilical hernia present. Musculoskeletal: (+) 2+ pitting edema upto the level of the thighs Lymph: (-) Cervical adenopathy Neuro: Alert, Oriented x3 Psych: Mood and affect Normal Vital Signs On Initial Exam: Initial Vitals Temp Pulse Resp BP Pulse Ox 97.7 F 77 22 123/79 92 01/26/18 17:31 1218 17:31 12 17:31 18 17:31 18 17:31 Diagnostics - Vital Signs Vital Signs Temp Pulse Resp BP Pulse Ox 01/26/18 17:32 71 22 123/79 91 01/26/18 17:31 97.7 F 70 17 123/79 92 - Laboratory Lab Results: Lab Results 01/26/18 01/26/18 Range/Units 17:42 17:48 WBC 9.0 (3.5-10.8) 10^3/ul RBC 5.34 (4.00-5.40) 10^6/ul Hgb 11.6 L (14.0-18.0) g/dl Hct 38 L (42-52) % MCV 72 L (80-94) fL MCH 22 L (27-31) pg MCHC 30 L (31-36) g/dl RDW 18 H (10.5-15) % Plt Count 237 (150-450) 10^3/ul MPV 9.1 (7.4-10.4) fL Neut % (Auto) 82.5 % Lymph % (Auto) 10.8 % [place] % (Auto) 5.7 % Eos % (Auto) 0.3 % Baso % (Auto) 0.7 % Absolute Neuts (auto) 7.4 (1.5-7.7) 10^3/ul Absolute Lymphs (auto) 1.0 (1.0-4.8) 10^3/ul Absolute Monos (auto) 0.5 (0-0.8) 10^3/ul Absolute Eos (auto) 0 (0-0.6) 10^3/ul Absolute Basos (auto) 0.1 (0-0.2) 10^3/ul Absolute Nucleated RBC 0 10^3/ul Nucleated RBC % 0.1 POC Glucose (mg/dL) 31 L* (70-100) mg/dL Result Diagrams: 01/28/18 05:53 01/28/18 05:53 Lab Statement: Any lab studies that have been ordered have been reviewed, and results considered in the medical decision making process. - Radiology CXR Radiology Interpretation Completed By: ED Physician, Radiologist Summary of Radiographic Findings: IMPRESSION: PNA on the R lung - CT Abd/Pel CT CT Interpretation Completed By: Radiologist Summary of CT Findings: IMPRESSION: 1. Mild peritoneal ascites which may be partially loculated which is increased since 11/06/2017. 2. Decreased gallbladder contraction with pericholecystic fluid or wall edema. 3. The remainder of the exam is similar. No interval bowel obstruction. 4. Mild loculated right pleural effusion with mild bibasilar fibro-atelectatic change. 5. Mild left renal atrophy. 6. Minimal colonic diverticulosis without diverticulitis. The ED physician reviewed this radiology report. - EKG 17:50 Cardiac Rate: NL - 76 bpm Summary of EKG Findings: Ventricular paced rythm , No STEMI Complex Multi-Symp Course/Dx Course Of Treatment: A 57 year-old M presents to the ED with a CC of nausea and vomiting for the last one week worsened 1 day ago. He notes lethargy, decreased bowel movements, unproductive cough, abdominal distension, bilateral pedal edema, fever, and chills. A physical exam revealed R basilar crackles, a protuberant with umbilical hernia and 2+ pitting edema upto the level of the thighs. A CXR reveals PNA in the R lung. An EKG reveals a ventricular paced rhythm. Labs revealed hypoglycema and elevated lactic acid. An Abd/Pel CT reveals the followin. Mild peritoneal ascites which may be partially loculated which is increased since 11/06/2017. 2. Decreased gallbladder contraction with pericholecystic fluid or wall edema. 3. The remainder of the exam is similar. No interval bowel obstruction. 4. Mild loculated right pleural effusion with mild bibasilar fibro-atelectatic change. 5. Mild left renal atrophy. 6. Minimal colonic diverticulosis without diverticulitis. I discussed the care of the pt with Dr. Florentino- general robin due to the loculated ascites and he agreed to see the pt tomorrow morning. Dr. Dickerson ( hospitalist) agreed to admit the pt. In the ED course, the pt was given Dextrose 50% IV, N.s 0.9% 2000 ml IV, Piperacillin 3.375 mg in N.s 0.9% 1000 ml IVPB which improved the symptoms. Patient will be admitted with a final Dx of PNA, Vomitting, Acute Renal Failure, Hyperkalemia, Acute urinary Retention, and Hypoglycemia. Pt is agreeable with this plan. Allergies noted. - Diagnoses Provider Diagnoses: PNA (pneumonia), Acute vomiting, ARF (acute renal failure), Hyperkalemia, Acute urinary retention, Hypoglycemia - Physician Notifications Discussed Care Of Patient With: Troy Mckeon surgeon Time Discussed With Above Provider: 20:33 Instructed by Provider To: Other - Dr. Florentino will see the pt in the ED tomorrow morning. 20:51- Dr. Lis Dickerson- hospitalist agreed to admit the pt. - Critical Care Time Critical Care Time: 30-74 min - 45 minutes Discharge - Sign-Out/Discharge Documenting (check all that apply): Patient Departure - Admit - Discharge Plan Condition: Stable Disposition: ADMITTED TO [facility] - Billing Disposition and Condition Condition: STABLE Disposition: Admitted to [facility] - Attestation Statements Document Initiated by Beni: Yes Documenting Scribe: Margaret Zamorano Provider For Whom Beni is Documenting (Include Credential): Dr. Nicanor Castano MD Scribe Attestation: Margaret Griffiths scribed for Dr. Nicanor Castano MD on 01/28/18 at 1128. Scribe Documentation Reviewed: Yes Provider Attestation: The documentation as recorded by the tainaibMargaret archuleta accurately reflects the service I personally performed and the decisions made by , Dr. Nicanor Castano MD Status of Scribe Document: Viewed
[2018-01-26 18:18] LABS: ALT 14 U/L (7-52); AST 16 U/L (13-39); Albumin 4.2 g/dL (3.2-5.2); Albumin/Globulin Ratio 1.5 (1-3); Alkaline Phosphatase 96 U/L (34-104); BUN/Creatinine Ratio 15.2 (8-20); Blood Urea Nitrogen 72 mg/dL (6-24); C Reactive Protein 8.72 mg/L (<8.01); CO2 Carbon Dioxide 25 mmol/L (22-32); Chloride 100 mmol/L (101-111); EGFR Non-African American 12.8 (>60); Globulin 2.8 g/dL (2-4); Sodium 137 mmol/L (135-145)
[2018-01-26 18:20] LABS: Anion Gap 12 mmol/L (2-11); Potassium 5.3 mmol/L (3.5-5.0)
[2018-01-26 18:21] LABS: Glucose 30 mg/dL (70-100)
[2018-01-26] MEDS ORDERED: NS 0.9% 1000 ML* 2,000 ML IV ONE (20:13)
[2018-01-26 20:16] LABS: Alcohol < 10 mg/dL (<10)
[2018-01-26] MEDS ORDERED: Piperacillin/Tazobac ADVAN(*) 3.375 GM in NS 0.9% 100 ML* 100 ML IVPB ONE (20:16)
[2018-01-26] MEDS ORDERED: NS 0.9% 1000 ML* 1,000 ML IV ONE (20:31)
[2018-01-26 20:45] LABS: Urine Appearance Cloudy; Urine Bacteria 1+ (Absent); Urine Bilirubin Negative (Negative); Urine Blood 1+ (Negative); Urine Color Yellow; Urine Glucose Negative (Negative); Urine Ketones Negative (Negative); Urine Nitrite Negative (Negative); Urine Protein 2+(100 mg/dL) (Negative); Urine Red Blood Cell 3+(>10/hpf) (Absent); Urine Urobilinogen Negative (Negative); Urine White Blood Cell 3+(>20/hpf) (Absent)
[2018-01-26] MEDS ORDERED: Nitroglycerin TAB 0.4 MG* 0.4 MG TAB SL PRN (21:39)
[2018-01-26] MEDS ORDERED: Albuterol HFA INHALER* 8 gm MDI INH PRN (21:39)
[2018-01-26] MEDS ORDERED: D5W 1/2 NS 1000 ML BAG* 1,000 ML IV SCH (22:00)
[2018-01-26] MEDS ORDERED: Dextrose 50% Syringe 50 ML* 25 GM/50 ML SYRINGE IV PUSH STA (23:26)
[2018-01-26] MEDS ORDERED: Ondansetron INJ* 2 MG/ML VIAL IV PRN (23:29)
[2018-01-27] MEDS: Sodium Chloride Conc 23.4%* 77 MEQ in D10W 1000 ML BAG* 1,000 ML IV SCH ×3 (00:02→20:50)
--- NOTE | 2018-01-27 00:19 | ADMNOTE ---
Subjective Date of Service: 01/26/18 Interval History: code status full this is admission h/p pt is a poor historian upi this is a 57 yr old wm with hx of etoh dep quit 20 yrs ago chronic ascites type ii dm hx of cad s/p aicd/ppm a fib on xarelto presented to er with one week hx of intractable n/v and abd pain. he decided to seek medical attention because he has progressively getting weaker. initial sbp 90 got ns bolus one liter. he was also found to have f/s 30 ---> got one amp of d50---> he had loss of appetite due to this intractable n/v but still took his dm meds last night ( both glipizide and januvia ) this am he only took januvia. pt was found to be in acute renal failure with creatinine 4.5 <---1.8 baseline. but only 200 cc urine volume in the bladder scan. he also c/o some dry coughs with hx of cig smoking ( quit 20 yrs ago ) initial wbc wnl and initial chest x ray did not reveal any discrete infil pt subsequently had ct of abd ---> loculated ascites with very distended abd but abd is soft ---> Dr Florentino will see pt in am phx/pshx hx of chf with ef 50-[address] torres s/p ppm + aicd type ii dm hx of etoh dep has been clean for 10+ yrs ascites chronic anemia on iron cad s/p total three stents last stent event was 2 yrs ago a fib on xarelto copd not on oxygen at home quin but non compliant with cpap hyperlipidemia ibs hx of ureteral stone social hx quit cig smoke 10+ yrs ago as well as etoh used to drink 12 packs of beer daily lives alone able to ambulate with a nora no ivda fhx mom due to old age father still alive denied any htn/dm/cva/cad Review of Systems - Measurements Intake and Output: Intake and Output Last 24 Hours 01/24/18 01/25/18 01/26/18 01/27/18 06:59 06:59 06:59 06:59 Output Total 200 Balance -200 Weight 200 lb Output: Urine 200 - Review of Systems General Comments: pertinent as per hpi Objective Active Medications: Albuterol (Ventolin Hfa Inhaler*) 1 puff INH BID PRN PRN Reason: WHEEZING Aspirin (Aspirin Ec Tab*) 81 mg PO DAILY [facility] Atorvastatin Calcium (Lipitor*) 80 mg PO DAILY [facility] Diltiazem HCl (Cardizem Tab*) 30 mg PO BID [facility] Piperacillin Sod/Tazobactam (Sod 3.375 gm/ Sodium Chloride) 100 mls @ 25 mls/ hr IVPB Q12H [facility] Sodium Chloride 77 meq/ (Dextrose) 1,019.25 mls @ 100 mls/hr IV Q10H [facility] Last Admin: 01/27/18 00:02 Dose: 100 mls/hr Magnesium Oxide (Magox 400 Tab*) 400 mg PO DAILY [facility] Metoprolol Succinate (Toprol Xl Tab*) 25 mg PO DAILY [facility] Mometasone Furoate/Formoterol Fumar (Dulera 200/5 Mdi*) 2 puff INH BID [facility]; Protocol Nitroglycerin (Nitroglycerin Tab 0.4 Mg*) 0.4 mg SL Q5M PRN PRN Reason: ANGINA Omeprazole (Prilosec Cap*) 20 mg PO DAILY@0600 [facility] Ondansetron HCl (Zofran Inj*) 4 mg IV Q6H PRN PRN Reason: NAUSEA Vital Signs - 8 hr 01/26/18 01/26/18 01/26/18 17:31 17:32 18:00 Temperature 97.7 F Pulse Rate 70 71 72 Respiratory 17 22 21 Rate Blood Pressure 123/79 123/79 (mmHg) O2 Sat by Pulse 92 91 100 Oximetry 01/26/18 01/26/18 01/26/18 18:02 18:32 19:06 Temperature Pulse Rate 75 76 Respiratory 26 15 19 Rate Blood Pressure 115/71 114/80 (mmHg) O2 Sat by Pulse 99 100 Oximetry 01/26/18 01/26/18 01/26/18 19:07 20:00 20:02 Temperature Pulse Rate 74 66 69 Respiratory 25 17 18 Rate Blood Pressure 125/71 90/59 (mmHg) O2 Sat by Pulse 99 100 100 Oximetry 01/26/18 01/26/18 01/26/18 20:20 20:21 20:29 Temperature Pulse Rate 72 74 74 Respiratory 24 20 18 Rate Blood Pressure 101/74 119/75 (mmHg) O2 Sat by Pulse 100 100 100 Oximetry 01/26/18 01/26/18 01/26/18 20:39 20:49 20:59 Temperature Pulse Rate 75 77 72 Respiratory 21 22 17 Rate Blood Pressure 112/77 123/77 119/76 (mmHg) O2 Sat by Pulse 100 100 100 Oximetry 01/26/18 01/26/18 01/26/18 21:00 21:09 21:19 Temperature Pulse Rate 78 75 76 Respiratory 21 22 23 Rate Blood Pressure 121/81 126/81 (mmHg) O2 Sat by Pulse 100 98 97 Oximetry 01/26/18 01/26/18 01/26/18 21:21 21:29 21:39 Temperature Pulse Rate 73 69 75 Respiratory 20 22 20 Rate Blood Pressure 122/77 119/77 124/88 (mmHg) O2 Sat by Pulse 96 100 100 Oximetry 01/26/18 01/26/18 01/26/18 21:49 21:59 22:00 Temperature Pulse Rate 74 80 77 Respiratory 21 21 18 Rate Blood Pressure 135/76 123/84 (mmHg) O2 Sat by Pulse 100 99 99 Oximetry 01/26/18 01/26/18 01/26/18 22:09 22:19 22:26 Temperature 98.6 F Pulse Rate 78 79 76 Respiratory 24 22 18 Rate Blood Pressure 121/75 126/79 130/92 (mmHg) O2 Sat by Pulse 99 99 100 Oximetry Oxygen Devices in Use Now: Nasal Cannula Appearance: nad Eyes: PERRLA Ears/Nose/Mouth/Throat: NL Teeth, Lips, Gums, Clear Oropharnyx, - - no teeth ( denture at home ) Neck: NL Appearance and Movements; NL JVP, Trachea Midline, No Thyroid Enlargement, Masses Respiratory: Symmetrical Chest Expansion and Respiratory Effort, Clear to Auscultation Cardiovascular: NL Sounds; No Murmurs; No JVD, - - s1 s2 Abdominal: - - + bs very distended + tenderness upon deep pressure around the umbilicus area Extremities: - - +3 pedal edema able to raise le against gravity 15 degree at least b/l Skin: - - pale looking Neurological: Alert and Oriented x 3, NL Sensation, NL Muscle Strength and Tone - cranial n 2-12 grossly intact plantar reflex downwards no fine tremors no asterixis Result Diagrams: 01/26/18 17:48 01/26/18 17:48 Additional Lab and Data: Lab Results 01/26/18 01/26/18 Range/Units 17:42 17:48 WBC 9.0 (3.5-10.8) 10^3/ul RBC 5.34 (4.00-5.40) 10^6/ul Hgb 11.6 L (14.0-18.0) g/dl Hct 38 L (42-52) % MCV 72 L (80-94) fL MCH 22 L (27-31) pg MCHC 30 L (31-36) g/dl RDW 18 H (10.5-15) % Plt Count 237 (150-450) 10^3/ul MPV 9.1 (7.4-10.4) fL Neut % (Auto) 82.5 % Lymph % (Auto) 10.8 % [place] % (Auto) 5.7 % Eos % (Auto) 0.3 % Baso % (Auto) 0.7 % Absolute Neuts (auto) 7.4 (1.5-7.7) 10^3/ul Absolute Lymphs (auto) 1.0 (1.0-4.8) 10^3/ul Absolute Monos (auto) 0.5 (0-0.8) 10^3/ul Absolute Eos (auto) 0 (0-0.6) 10^3/ul Absolute Basos (auto) 0.1 (0-0.2) 10^3/ul Absolute Nucleated RBC 0 10^3/ul Nucleated RBC % 0.1 POC Glucose (mg/dL) 31 L* (70-100) mg/dL EKG Data: ekg paced rhythm Assess/Plan/Problems-Billing Assessment: this is a 57 yr old wm with prob hx of etoh related ascites presented to er with intractable n /v abd pain for one week. pt was found hypotensive and hypoglycemia when arrived to er with sbp 90 f/s 30. ct of abd showed loculated ascites ---> surgery Dr Florentino will see him in am he was found to have uti currently on zosyn - Patient Problems (1) Ascites Current Visit: Yes Status: Acute Code(s): R18.8 - OTHER ASCITES SNOMED Code(s): 655664517 Comment: hx of etoh dep but quit >10+ yrs ago pt has loculated ascites seen on ct scan ---> strict npo for now surgery dr Florentino will see him in am (2) Abdominal pain Current Visit: Yes Status: Acute Code(s): R10.9 - UNSPECIFIED ABDOMINAL PAIN SNOMED Code(s): 14465984 Comment: pt did not mention any abd pain when asked but would have abd tenderness around the umiblicus area prn ultram will be ordered (3) Acute on chronic renal failure Current Visit: Yes Status: Acute Code(s): N17.9 - ACUTE KIDNEY FAILURE, UNSPECIFIED; N18.9 - CHRONIC KIDNEY DISEASE, UNSPECIFIED SNOMED Code(s): 821275250 Comment: prob related to severe dehydration with decreased po intake but still takes his lasix and vomits pt also has hypoglycemia d101/2 ns ordered at 100 cc per hour renal sono in am to r/o hydro moniter daily input and outpt and lytes hold lasix (4) A-fib Current Visit: Yes Status: Acute Code(s): I48.91 - UNSPECIFIED ATRIAL FIBRILLATION SNOMED Code(s): 86780305 Comment: tele moniter continue his cardaic meds as outpt but will hold his xarelto for now while await for am abd tap (5) CAD (coronary artery disease) Current Visit: Yes Status: Acute Code(s): I25.10 - ATHSCL HEART DISEASE OF [place] CORONARY ARTERY W/O ANG PCTRS SNOMED Code(s): 42829246 Comment: stable continue outpt meds (6) Hypoglycemia Current Visit: Yes Status: Acute Code(s): E16.2 - HYPOGLYCEMIA, UNSPECIFIED SNOMED Code(s): 530103930 Comment: pt does not have oral intake but still takes his dm meds will put both on hold npo for now due to intractable n/v and paracenthesis in am d101/2 ns at this point f/s ck q4 while npo due to hypoglycemia on admission (7) AICD (automatic cardioverter/defibrillator) present Current Visit: Yes Status: Acute Code(s): Z95.810 - PRESENCE OF AUTOMATIC ( IMPLANTABLE) CARDIAC DEFIBRILLATOR SNOMED Code(s): 818472131 (8) Type II diabetes mellitus Current Visit: Yes Status: Acute Comment: ck a1c hold dm meds f/s q4 hrs (9) Dehydration Current Visit: Yes Status: Acute Code(s): E86.0 - DEHYDRATION SNOMED Code( s): 65316733 Comment: ivf rodriguez placed for input and outpt (10) Hyperlipidemia Current Visit: Yes Status: Acute Code(s): E78.5 - HYPERLIPIDEMIA, UNSPECIFIED SNOMED Code(s): 94253535 Comment: ck fasting lipid lft wnl (11) Diastolic HF (heart failure) Current Visit: Yes Status: Acute Code(s): I50.30 - UNSPECIFIED DIASTOLIC ( CONGESTIVE) HEART FAILURE SNOMED Code(s): 990819292 Comment: stable moniter (12) UTI (urinary tract infection) Current Visit: Yes Status: Acute Comment: start zosyn from er while waiting for urine cx result
[2018-01-27] MEDS: Piperacillin/Tazobac ADVAN(*) 3.375 GM in NS 0.9% 100 ML* 100 ML IVPB SCH ×2 (00:25→13:18)
[2018-01-27] MEDS: Omeprazole CAP* 20 MG PO SCH (05:30)
[2018-01-27 07:20] LABS: Hematocrit 33 % (42-52); Mean Corpuscular HGB Conc 30 g/dl (31-36); Mean Corpuscular Hemoglobin 22 pg (27-31); Mean Corpuscular Volume 73 fL (80-94); Platelet Count 195 10^3/ul (150-450); Red Blood Count 4.56 10^6/ul (4.00-5.40); Red Cell Distribution Width 18 % (10.5-15); White Blood Count 8.4 10^3/ul (3.5-10.8)
[2018-01-27 07:26] LABS: INR 1.19 (0.77-1.02)
[2018-01-27] MEDS: Mometasone/Formoter 200/5 MDI INH SCH ×2 (08:02→19:32)
[2018-01-27 08:13] LABS: ALT 12 U/L (7-52); AST 15 U/L (13-39); Albumin 3.5 g/dL (3.2-5.2); Albumin/Globulin Ratio 1.3 (1-3); Alkaline Phosphatase 88 U/L (34-104); BUN/Creatinine Ratio 14.7 (8-20); Blood Urea Nitrogen 72 mg/dL (6-24); CO2 Carbon Dioxide 24 mmol/L (22-32); Calcium 8.3 mg/dL (8.6-10.3); Chloride 103 mmol/L (101-111); Cholesterol 79 mg/dL; EGFR Non-African American 12.3 (>60); Globulin 2.6 g/dL (2-4); Glucose 96 mg/dL (70-100); HDL Cholesterol 26.8 mg/dL; LDL Cholesterol 38 mg/dL; Sodium 135 mmol/L (135-145); Total Protein 6.1 g/dL (6.4-8.9); Triglycerides 70 mg/dL
[2018-01-27 08:18] LABS: Anion Gap 8 mmol/L (2-11); Potassium 5.5 mmol/L (3.5-5.0)
[2018-01-27 08:19] LABS: Lymphocytes % 9 %; Monocytes % 9 %; Neutrophil % 80 %
[2018-01-27 08:20] LABS: Microcytosis 2+
[2018-01-27 08:21] LABS: Burr Cells 1+
[2018-01-27 08:24] LABS: Iron 17 ug/dL (50-212); Total Iron Binding Capacity 342 mcg/dL (250-450); Transferrin 244 mg/dL (203-362)
[2018-01-27 08:25] LABS: ABS Basophils 0.08 10^3/ul (0-0.2); ABS Eosinophils 0.08 10^3/ul (0-0.6); ABS Neutrophils 6.72 10^3/ul (1.5-7.7)
[2018-01-27 08:38] LABS: TSH (Thyroid Stimulating Horm) 1.19 mcIU/mL (0.34-5.60)
[2018-01-27 08:40] LABS: Free T4 0.83 ng/dL (0.61-1.12)
[2018-01-27] MEDS: Diltiazem TAB* 30 MG PO SCH ×2 (09:07→20:55)
[2018-01-27] MEDS: Metoprolol Succinate XL TAB* 25 MG PO SCH (09:07)
[2018-01-27] MEDS: Atorvastatin* 80 MG TAB PO SCH (09:07)
[2018-01-27] MEDS: Aspirin EC TAB* 81 MG TAB.EC PO SCH (09:07)
[2018-01-27] MEDS: Magnesium Oxide TAB* 400 MG PO SCH (09:07)
--- NOTE | 2018-01-27 19:38 | PN ---
Subjective Date of Service: 01/27/18 Interval History: Pt seen and examined. Meds and labs reviewed. CC: N/A ROS: Denied HARO/dizziness, F/C, N/V, CP, SOB, increased cough, sputum production , abd pain, diarrhea, constipation, dysuria, myalgias, arthralgias, throat pain , and new skin lesions. The rest of the 14 point ROS are unremarkable. PHYSICAL EXAM: GEN APPEARANCE: Awake, not in acute distress, confused, not oriented to time HEENT: NC/AT, PERRLA, moist oral mucosa, (-) throat erythema NECK: Soft, supple, (-) cervical LAD, (-)JVD HEART: S1S2 WNL, RRR, No MRG CHEST: CTA, BL, GAE, No W/R/R ABD: Soft, distended/NT, NABS 4x Q EXT: No C/C/E SKIN: Warm to touch PSYCH: No active psychosis, hallucinations, depression, SI/HI Objective Active Medications: Albuterol (Ventolin Hfa Inhaler*) 1 puff INH BID PRN PRN Reason: WHEEZING Aspirin (Aspirin Ec Tab*) 81 mg PO DAILY [facility] Last Admin: 01/27/18 09:07 Dose: 81 mg Atorvastatin Calcium (Lipitor*) 80 mg PO DAILY [facility] Last Admin: 01/27/18 09:07 Dose: 80 mg Diltiazem HCl (Cardizem Tab*) 30 mg PO BID [facility] Last Admin: 01/27/18 09:07 Dose: 30 mg Heparin Sodium (Porcine) (Heparin Vial(*)) 5,000 units SUBCUT Q12HR [facility] Piperacillin Sod/Tazobactam (Sod 3.375 gm/ Sodium Chloride) 100 mls @ 25 mls/ hr IVPB Q12H [facility] Last Admin: 01/27/18 13:18 Dose: 25 mls/hr Sodium Chloride 77 meq/ (Dextrose) 1,019.25 mls @ 100 mls/hr IV Q10H [facility] Last Admin: 01/27/18 10:35 Dose: 100 mls/hr Lactulose (Lactulose*) 30 ml PO QID [facility] Magnesium Oxide (Magox 400 Tab*) 400 mg PO DAILY [facility] Last Admin: 01/27/18 09:07 Dose: 400 mg Metoprolol Succinate (Toprol Xl Tab*) 25 mg PO DAILY [facility] Last Admin: 01/27/18 09:07 Dose: 25 mg Mometasone Furoate/Formoterol Fumar (Dulera 200/5 Mdi*) 2 puff INH BID [facility]; Protocol Last Admin: 01/27/18 08:02 Dose: 2 puff Nitroglycerin (Nitroglycerin Tab 0.4 Mg*) 0.4 mg SL Q5M PRN PRN Reason: ANGINA Omeprazole (Prilosec Cap*) 20 mg PO DAILY@0600 [facility] Last Admin: 01/27/18 05:30 Dose: 20 mg Ondansetron HCl (Zofran Inj*) 4 mg IV Q6H PRN PRN Reason: NAUSEA Tramadol HCl (Ultram*) 25 mg PO Q12H PRN PRN Reason: DISCOMFORT Vital Signs - 8 hr 01/27/18 15:34 Temperature 97.5 F Pulse Rate 67 Respiratory 16 Rate Blood Pressure 114/64 (mmHg) O2 Sat by Pulse 92 Oximetry Oxygen Devices in Use Now: Nasal Cannula Result Diagrams: 01/27/18 07:01 01/27/18 07:01 Additional Lab and Data: Lab Results 01/26/18 01/26/18 Range/Units 17:42 17:48 WBC 9.0 (3.5-10.8) 10^3/ul RBC 5.34 (4.00-5.40) 10^6/ul Hgb 11.6 L (14.0-18.0) g/dl Hct 38 L (42-52) % MCV 72 L (80-94) fL MCH 22 L (27-31) pg MCHC 30 L (31-36) g/dl RDW 18 H (10.5-15) % Plt Count 237 (150-450) 10^3/ul MPV 9.1 (7.4-10.4) fL Neut % (Auto) 82.5 % Lymph % (Auto) 10.8 % [place] % (Auto) 5.7 % Eos % (Auto) 0.3 % Baso % (Auto) 0.7 % Absolute Neuts (auto) 7.4 (1.5-7.7) 10^3/ul Absolute Lymphs (auto) 1.0 (1.0-4.8) 10^3/ul Absolute Monos (auto) 0.5 (0-0.8) 10^3/ul Absolute Eos (auto) 0 (0-0.6) 10^3/ul Absolute Basos (auto) 0.1 (0-0.2) 10^3/ul Absolute Nucleated RBC 0 10^3/ul Nucleated RBC % 0.1 POC Glucose (mg/dL) 31 L* (70-100) mg/dL EKG Data: ekg paced rhythm Assess/Plan/Problems-Billing Assessment: this is a 57 yr old wm with prob hx of etoh related ascites presented to er with intractable n /v abd pain for one week. pt was found hypotensive and hypoglycemia when arrived to er with sbp 90 f/s 30. ct of abd showed loculated ascites ---> surgery Dr Florentino will see him in am he was found to have uti currently on zosyn - Patient Problems (1) Ascites Current Visit: Yes Status: Acute Code(s): R18.8 - OTHER ASCITES SNOMED Code(s): 060006884 Comment: -Will await Sx input -Unclear cause of loculated ascites but no documented hx of cirrhosis; however, pt also confused and hyperammonemic that suggests possible hepatic encephalopathy--->??early cirrhosis? No pronounced nodularity of liver on CT and normal platelet count -Consider GI and ID consult in AM -No leukocytosis and abd tenderness to suggest SBP at this time -Continue Zosyn for now for UTI -Pt does have hx of CHF and has pulmonary edema on CXR (2) UTI (urinary tract infection) Current Visit: No Status: Acute Priority: High Onset Date: 04/30/14 Comment: -Continue Zosyn for now given loculated ascites (3) Encephalopathy Current Visit: Yes Status: Acute Code(s): G93.40 - ENCEPHALOPATHY, UNSPECIFIED SNOMED Code(s): 71364197 Comment: -Unclear cause whether hepatic or metabolic -Will place pt on Lactulose (4) Acute on chronic renal insufficiency Current Visit: Yes Status: Acute Code(s): N28.9 - DISORDER OF KIDNEY AND URETER, UNSPECIFIED; N18.9 - CHRONIC KIDNEY DISEASE, UNSPECIFIED SNOMED Code(s ): 610847331 Comment: -Will check FE-Urea and FENa -No evidence of hydronephrosis on U/S -Will hold off on diuretics for now (5) Diabetes Current Visit: No Status: Chronic Priority: High Code(s): E11.9 - TYPE 2 DIABETES MELLITUS WITHOUT COMPLICATIONS SNOMED Code(s): 14355760 Comment: -Well-controlled -Continue current regimen (6) Diastolic HF (heart failure) Current Visit: Yes Status: Acute Code(s): I50.30 - UNSPECIFIED DIASTOLIC ( CONGESTIVE) HEART FAILURE SNOMED Code(s): 405182116 Comment: -Will continue to monitor (7) DVT prophylaxis Current Visit: No Status: Acute Code(s): TLU4123 - SNOMED Code(s): 178704083 Comment: -Will place pt on SQ [id number] Status and Disposition: -As above
[2018-01-27] MEDS: Heparin VIAL(*) 5000 UNITS/ML VIAL (FIVE THOUSAND) SUBCUT SCH (20:54)
[2018-01-27 21:37] LABS: ABS Basophils 0.1 10^3/ul (0-0.2); ABS Eosinophils 0.1 10^3/ul (0-0.6); ABS Lymphocytes 1.4 10^3/ul (1.0-4.8); ABS Monocytes 0.9 10^3/ul (0-0.8); ABS Neutrophils 7.5 10^3/ul (1.5-7.7); ABS Nucleated RBC 0 10^3/ul; Eosinophil % 1.3 %; Hematocrit 35 % (42-52); Hemoglobin 10.4 g/dl (14.0-18.0); Lymphocyte % 13.7 %; Mean Corpuscular HGB Conc 30 g/dl (31-36); Mean Corpuscular Hemoglobin 22 pg (27-31); Mean Corpuscular Volume 72 fL (80-94); Nucleated Red Blood Cells % 0.1; Platelet Count 205 10^3/ul (150-450); Red Blood Count 4.81 10^6/ul (4.00-5.40); Red Cell Distribution Width 18 % (10.5-15)
[2018-01-27 21:39] LABS: Activated Partial Thrombo Time 33.5 seconds (26.0-36.3); INR 1.18 (0.77-1.02)
[2018-01-27 21:44] LABS: EGFR Non-African American 11.9 (>60)
[2018-01-28] MEDS: Piperacillin/Tazobac ADVAN(*) 3.375 GM in NS 0.9% 100 ML* 100 ML IVPB SCH ×2 (00:33→13:50)
[2018-01-28] MEDS: Omeprazole CAP* 20 MG PO SCH (05:58)
[2018-01-28 06:15] LABS: Magnesium 1.9 mg/dL (1.9-2.7)
[2018-01-28 06:31] LABS: ABS Basophils 0.1 10^3/ul (0-0.2); ABS Eosinophils 0.1 10^3/ul (0-0.6); ABS Lymphocytes 1.2 10^3/ul (1.0-4.8); ABS Monocytes 0.8 10^3/ul (0-0.8); ABS Neutrophils 6.9 10^3/ul (1.5-7.7); ABS Nucleated RBC 0 10^3/ul; Eosinophil % 1.5 %; Hematocrit 32 % (42-52); Hemoglobin 9.8 g/dl (14.0-18.0); Lymphocyte % 13.3 %; Mean Corpuscular HGB Conc 31 g/dl (31-36); Mean Corpuscular Hemoglobin 22 pg (27-31); Mean Corpuscular Volume 72 fL (80-94); Nucleated Red Blood Cells % 0; Platelet Count 185 10^3/ul (150-450); Red Blood Count 4.45 10^6/ul (4.00-5.40); Red Cell Distribution Width 18 % (10.5-15); White Blood Count 9.1 10^3/ul (3.5-10.8)
[2018-01-28 06:45] LABS: Albumin 3.5 g/dL (3.2-5.2); Albumin/Globulin Ratio 1.4 (1-3); BUN/Creatinine Ratio 14.2 (8-20); Calcium 8.2 mg/dL (8.6-10.3); EGFR Non-African American 11.6 (>60); Globulin 2.5 g/dL (2-4); Magnesium 1.8 mg/dL (1.9-2.7); Phosphorus 6.8 mg/dL (2.5-5.0); Total Bilirubin 0.2 mg/dL (0.2-1.0)
[2018-01-28] MEDS: Sodium Chloride Conc 23.4%* 77 MEQ in D10W 1000 ML BAG* 1,000 ML IV SCH (06:47)
[2018-01-28 06:51] LABS: Potassium 5.5 mmol/L (3.5-5.0)
[2018-01-28] MEDS: Mometasone/Formoter 200/5 MDI INH SCH ×2 (07:53→19:52)
[2018-01-28] MEDS: Diltiazem TAB* 30 MG PO SCH ×2 (09:05→20:53)
[2018-01-28] MEDS: Heparin VIAL(*) 5000 UNITS/ML VIAL (FIVE THOUSAND) SUBCUT SCH ×2 (09:06→20:53)
[2018-01-28] MEDS: Atorvastatin* 80 MG TAB PO SCH (09:06)
[2018-01-28] MEDS: Aspirin EC TAB* 81 MG TAB.EC PO SCH (09:06)
[2018-01-28] MEDS: Metoprolol Succinate XL TAB* 25 MG PO SCH (09:06)
[2018-01-28] MEDS: Magnesium Oxide TAB* 400 MG PO SCH (09:06)
[2018-01-28] MEDS ORDERED: Magnesium Sulfate 2 GM IV* 2 GM/50 ML BAG IVPB ONE (10:51)
--- NOTE | 2018-01-28 13:19 | CONS ---
CONSULTATION REPORT: DATE OF CONSULT: 01/28/18 REQUESTING PHYSICIAN: Dr. Perkins. CONSULTING SERVICE: Infectious Disease. REASON FOR CONSULTATION: Malaise, abdominal pain, ascites. IMPRESSION: 1. Ascites with abdominal pain improving while on antibiotics here, spontaneous bacterial peritonitis consideration. The ascites fluid is partially loculated on the CT, it could be perhaps forming an abscess, but I think less likely. 2. Chronic ascites with chronic kidney disease. 3. History of congestive heart failure. 4. Past alcohol abuse, not clear what his liver status is. 5. Atrial fibrillation. 6. Status post pacemaker placement. 7. Obstructive sleep apnea, not using CPAP. 6. Microcytic anemia. 7. Acute kidney injury. RECOMMENDATIONS: Agree with Zosyn and please obtain a diagnostic sample of the ascites fluid to evaluate for spontaneous bacterial peritonitis. HISTORY OF PRESENT ILLNESS: This is a 57-year-old man with chronic ascites in the setting of congestive heart failure, chronic kidney disease, some liver injury, admitted with a week of worsening abdominal pain, vomiting, loose stools , and chills and sweats without fever. His appetite had been off as well. His girth was about the same as far as he could tell. He came to the hospital on the . He is afebrile, hemodynamically stable. The white blood cell count was 9; his creatinine was 4.7, his baseline 1.5. Urinalysis had showed leukocyte esterase. He had a Pal catheter placed because he was unable to pass urine. Urine and blood cultures are pending. He had a CT that showed ascites partially loculated, no clear abscess. Today, he denies abdominal pain , nausea, vomiting, diarrhea, he is feeling a lot better. He is hungry. PAST MEDICAL HISTORY: 1. Chronic kidney disease. 2. Congestive heart failure. 3. Status post pacemaker placement. 4. Coronary artery disease and history of PCI. 5. Type 2 diabetes. 6. History of alcohol abuse, abstaining for 10 years. 7. Chronic ascites. 8. Anemia. 9. Atrial fibrillation, on Xarelto. 10. COPD. 11. Obstructive sleep apnea, not compliant with CPAP. 12. Hyperlipidemia., 13. History of ureteral stone and left ureteral stent, which is out. MEDICATIONS: 1. Albuterol. 2. Aspirin. 3. Lipitor. 4. Lactulose. 5. Magnesium. 6. Metoprolol. 7. Omeprazole. 8. Zosyn. 9. Tramadol. ALLERGIES: IV and ORAL CONTRAST. FAMILY HISTORY: Mother from old age. Father still alive without known medical problems. SOCIAL HISTORY: He lives in [place] by himself. He has never lived overseas. No travel. No sick contacts. No injection drugs. REVIEW OF SYSTEMS: A 14-point review is all negative except as noted above in the history of present illness. PHYSICAL EXAM: Vital Signs: Temperature 37, heart rate 70, respiratory rate 16 , blood pressure 150/70, oxygen saturation 96% on 2 L. In general, he is awake , not in distress. Neurologic: He is oriented x3, follows all commands. HEENT : There is no conjunctival hemorrhage. Oropharynx without lesions. Neck: Supple without mass. Heart: Regular rate and rhythm without murmurs, rubs or gallops. Lungs: Clear to auscultation bilaterally. Abdomen: Mildly distended , but soft. There are bowel sounds present. He has bulging flanks, no hemorrhage. Musculoskeletal: There is no spine tenderness to palpation or joint synovitis. DIAGNOSTIC STUDIES/LAB DATA: White blood cell count 9, hemoglobin 9.8, MCV 72, platelets 185,000. Creatinine 5, BUN 73. ALT 12. INR 1.18. Please see impressions and recommendations outlined above, which I have discussed with Dr. Perkins. Thank you for asking me to see Mr. Pratt in consultation. [id number]/CPS #: [id number] MTDD
[2018-01-28 17:45] LABS: Body Fluid Source Peritonial Fluid
[2018-01-28 18:39] LABS: Body Fluid Band 1 %; Body Fluid Mono 5 %; Body Fluid Other Cells 10
--- NOTE | 2018-01-28 20:05 | PN ---
Subjective Date of Service: 01/28/18 Interval History: Pt seen and examined. Meds and labs reviewed. CC: Pt is hungry---placed on full liquid diet post diagnostic and therapeutic paracentesis ROS: Denied HARO/dizziness, F/C, N/V, CP, SOB, increased cough, sputum production , abd pain, diarrhea, constipation, dysuria, myalgias, arthralgias, throat pain , and new skin lesions. The rest of the 14 point ROS are unremarkable. PHYSICAL EXAM: GEN APPEARANCE: Awake, not in acute distress, confused, not oriented to time and person, mild anasarca HEENT: NC/AT, PERRLA, moist oral mucosa, (-) throat erythema NECK: Soft, supple, (-) cervical LAD, (-)JVD HEART: S1S2 WNL, RRR, No MRG CHEST: CTA, BL, GAE, No W/R/R ABD: Soft, distended/NT, NABS 4x Q EXT: No C/C/all 4 extremities edematous +2 SKIN: Warm to touch PSYCH: No active psychosis, hallucinations, depression, SI/HI NEURO: (+)Asterexis Objective Active Medications: Albuterol (Ventolin Hfa Inhaler*) 1 puff INH BID PRN PRN Reason: WHEEZING Aspirin (Aspirin Ec Tab*) 81 mg PO DAILY [facility] Last Admin: 01/28/18 09:06 Dose: 81 mg Atorvastatin Calcium (Lipitor*) 80 mg PO DAILY [facility] Last Admin: 01/28/18 09:06 Dose: 80 mg Diltiazem HCl (Cardizem Tab*) 30 mg PO BID [facility] Last Admin: 01/28/18 09:05 Dose: 30 mg Heparin Sodium (Porcine) (Heparin Vial(*)) 5,000 units SUBCUT Q12HR [facility] Last Admin: 01/28/18 09:06 Dose: 5,000 units Piperacillin Sod/Tazobactam (Sod 3.375 gm/ Sodium Chloride) 100 mls @ 25 mls/ hr IVPB Q12H [facility] Last Admin: 01/28/18 13:50 Dose: 25 mls/hr Lactulose (Lactulose*) 30 ml PO QID [facility] Last Admin: 01/28/18 17:33 Dose: 30 ml Magnesium Oxide (Magox 400 Tab*) 400 mg PO DAILY [facility] Last Admin: 01/28/18 09:06 Dose: 400 mg Metoprolol Succinate (Toprol Xl Tab*) 25 mg PO DAILY [facility] Last Admin: 01/28/18 09:06 Dose: 25 mg Mometasone Furoate/Formoterol Fumar (Dulera 200/5 Mdi*) 2 puff INH BID [facility]; Protocol Last Admin: 01/28/18 19:52 Dose: 2 puff Nitroglycerin (Nitroglycerin Tab 0.4 Mg*) 0.4 mg SL Q5M PRN PRN Reason: ANGINA Omeprazole (Prilosec Cap*) 20 mg PO DAILY@0600 [facility] Last Admin: 01/28/18 05:58 Dose: 20 mg Ondansetron HCl (Zofran Inj*) 4 mg IV Q6H PRN PRN Reason: NAUSEA Tramadol HCl (Ultram*) 25 mg PO Q12H PRN PRN Reason: DISCOMFORT Vital Signs - 8 hr 01/28/18 01/28/18 15:11 18:56 Temperature 97.9 F 98.1 F Pulse Rate 65 72 Respiratory 18 18 Rate Blood Pressure 127/67 122/63 (mmHg) O2 Sat by Pulse 88 89 Oximetry Oxygen Devices in Use Now: Nasal Cannula Result Diagrams: 01/28/18 05:53 01/28/18 05:53 Additional Lab and Data: Lab Results 01/26/18 01/26/18 Range/Units 17:42 17:48 WBC 9.0 (3.5-10.8) 10^3/ul RBC 5.34 (4.00-5.40) 10^6/ul Hgb 11.6 L (14.0-18.0) g/dl Hct 38 L (42-52) % MCV 72 L (80-94) fL MCH 22 L (27-31) pg MCHC 30 L (31-36) g/dl RDW 18 H (10.5-15) % Plt Count 237 (150-450) 10^3/ul MPV 9.1 (7.4-10.4) fL Neut % (Auto) 82.5 % Lymph % (Auto) 10.8 % [place] % (Auto) 5.7 % Eos % (Auto) 0.3 % Baso % (Auto) 0.7 % Absolute Neuts (auto) 7.4 (1.5-7.7) 10^3/ul Absolute Lymphs (auto) 1.0 (1.0-4.8) 10^3/ul Absolute Monos (auto) 0.5 (0-0.8) 10^3/ul Absolute Eos (auto) 0 (0-0.6) 10^3/ul Absolute Basos (auto) 0.1 (0-0.2) 10^3/ul Absolute Nucleated RBC 0 10^3/ul Nucleated RBC % 0.1 POC Glucose (mg/dL) 31 L* (70-100) mg/dL Microbiology and Other Data: Microbiology 01/28/18 15:35 Gram Stain - Preliminary Body Fluid - Abdominal 01/26/18 20:25 Urine Culture - Final Urine Kavya Albicans EKG Data: ekg paced rhythm Assess/Plan/Problems-Billing Assessment: this is a 57 yr old wm with prob hx of etoh related ascites presented to er with intractable n /v abd pain for one week. pt was found hypotensive and hypoglycemia when arrived to er with sbp 90 f/s 30. ct of abd showed loculated ascites ---> surgery Dr Florentino will see him in am he was found to have uti currently on zosyn - Patient Problems (1) Ascites Current Visit: Yes Status: Acute Code(s): R18.8 - OTHER ASCITES SNOMED Code(s): 736614503 Comment: -Unclear cause of loculated ascites but no documented hx of cirrhosis; however, pt also confused and hyperammonemic that suggests possible hepatic encephalopathy--->??early cirrhosis? No pronounced nodularity of liver on CT and normal platelet count; also no palmar erythema nor spider angiomata -Appreciate Dr. Cartagena input -Appreciate Dr. Marie help on diagnostic and therapeutic paracentesis---cell count, cell block/cytology, SAAG, and Total protein, and fluid culture ordered to further evaluate and delineate source of ascites -2L total of ascitic fluid drawn -Except for hyperammonemia and asterexis and confusion, possibly due to acute on chronic renal failure? -Doubt congestive hepatopathy given normal LFTs and relatively normal INR -No leukocytosis and abd tenderness to suggest SBP at this time although will be ruled out from above -Continue Zosyn for now for UTI and possible early abscess, although this seems to be remote at this time -Pt does have hx of CHF and has pulmonary edema on CXR -D/W Dr. Ackerman who suggested to obtain quantiferon gold test and to touch base with Dr. Fields in AM (2) UTI (urinary tract infection) Current Visit: No Status: Acute Priority: High Onset Date: 04/30/14 Comment: -Continue Zosyn for now given loculated ascites (3) Encephalopathy Current Visit: Yes Status: Acute Code(s): G93.40 - ENCEPHALOPATHY, UNSPECIFIED SNOMED Code(s): 73611000 Comment: -Unclear cause whether hepatic or metabolic -Continue Lactulose (4) Acute on chronic renal insufficiency Current Visit: Yes Status: Acute Code(s): N28.9 - DISORDER OF KIDNEY AND URETER, UNSPECIFIED; N18.9 - CHRONIC KIDNEY DISEASE, UNSPECIFIED SNOMED Code(s ): 035970511 Comment: -Still awaiting rest of ordered urine lytes to calculate for FE-Urea and FENa -No evidence of hydronephrosis on U/S -Will hold off on diuretics for now -Will await any further input from Dr. Hickey (5) Diabetes Current Visit: No Status: Chronic Priority: High Code(s): E11.9 - TYPE 2 DIABETES MELLITUS WITHOUT COMPLICATIONS SNOMED Code(s): 18688950 Comment: -Well-controlled -Continue current regimen (6) Diastolic HF (heart failure) Current Visit: Yes Status: Acute Code(s): I50.30 - UNSPECIFIED DIASTOLIC ( CONGESTIVE) HEART FAILURE SNOMED Code(s): 756063923 Comment: -Will continue to monitor (7) DVT prophylaxis Current Visit: No Status: Acute Code(s): MSV6269 - SNOMED Code(s): 581452951 Comment: -Continue SQ [id number] Status and Disposition: -As above
[2018-01-28] MEDS ORDERED: Dextrose 50% Syringe 50 ML* 25 GM/50 ML SYRINGE IV PUSH PRN (21:16)
[2018-01-28] MEDS ORDERED: Insulin LISPRO* 1 UNITS UNIT SUBCUT SCH (22:00)
[2018-01-29] MEDS: Piperacillin/Tazobac ADVAN(*) 3.375 GM in NS 0.9% 100 ML* 100 ML IVPB SCH (01:43)
[2018-01-29 01:54] LABS: BUN/Creatinine Ratio 15.2 (8-20); Calcium 8.4 mg/dL (8.6-10.3); EGFR Non-African American 13.4 (>60); Magnesium 2.3 mg/dL (1.9-2.7)
[2018-01-29 01:56] LABS: Potassium 5.3 mmol/L (3.5-5.0)
[2018-01-29] MEDS: traMADol TAB* 50 MG PO PRN ×2 (04:40→20:45)
[2018-01-29] MEDS: Omeprazole CAP* 20 MG PO SCH (05:46)
[2018-01-29] MEDS: Mometasone/Formoter 200/5 MDI INH SCH ×2 (08:07→19:39)
--- NOTE | 2018-01-29 08:30 | OP ---
CC: Primary Care Physician; Dr. Sergio Bland * DATE OF OPERATION: 01/28/18 - ROOM #442 DATE OF : 60. SURGEON: Troy Florentino MD ANESTHESIA: Local anesthesia PRE-OP DIAGNOSIS: Ascites. POST-OP DIAGNOSIS: Ascites. OPERATIVE PROCEDURE: Paracentesis. INDICATIONS: I was contacted by the hospitalist service to evaluate Mr. Pratt , a 57-year-old gentleman, who presented to the hospital on 01/26/18, was admitted to the hospitalist service with a diagnosis of [id number] renal failure, atrial fib, and ascites that was noted to be loculated on a CT scan. The patient was admitted and started on Zosyn. I was contacted to get a specimen for culture. CT scan was reviewed. FLUIDS: 2 L of minimally cloudy yellow fluid specimen sent. The patient tolerated the procedure well. DESCRIPTION OF PROCEDURE: I discussed with the patient the risks, benefits and alternatives to the procedure, going over the possible complications including not to limited to bleeding, infection, need for additional procedures. The patient understood and signed consent. The area of the right upper quadrant was prepped sterilely. A time-out was performed. I injected lidocaine and inserted an 8- Romanian needle into the abdominal cavity, received blood back and this did not persist. I removed the catheter and we decided to change our location to the left mid abdomen. This was prepped at this site. A second kit was used, 5-Romanian. Tubing was placed into the abdomen and approximately 2 L of mildly cloudy yellow abdominal fluid was removed. The patient tolerated the procedure well. Dressing was placed. Specimens were sent for culture and sensitivity and cytology. [id number] #: [id number] [facility]
[2018-01-29] MEDS: Aspirin EC TAB* 81 MG TAB.EC PO SCH (08:53)
[2018-01-29] MEDS: Magnesium Oxide TAB* 400 MG PO SCH (08:53)
[2018-01-29] MEDS: Diltiazem TAB* 30 MG PO SCH ×2 (08:53→20:46)
[2018-01-29] MEDS: Atorvastatin* 80 MG TAB PO SCH (08:53)
[2018-01-29] MEDS: Heparin VIAL(*) 5000 UNITS/ML VIAL (FIVE THOUSAND) SUBCUT SCH ×2 (08:54→20:48)
[2018-01-29] MEDS: Metoprolol Succinate XL TAB* 25 MG PO SCH (08:54)
[2018-01-29] MEDS: Insulin LISPRO* 1 UNITS UNIT SUBCUT SCH ×3 (08:54→16:50)
[2018-01-29 10:13] LABS: ABS Basophils 0.1 10^3/ul (0-0.2); ABS Eosinophils 0.1 10^3/ul (0-0.6); ABS Lymphocytes 0.7 10^3/ul (1.0-4.8); ABS Monocytes 0.7 10^3/ul (0-0.8); ABS Neutrophils 8.1 10^3/ul (1.5-7.7); ABS Nucleated RBC 0 10^3/ul; Hematocrit 32 % (42-52); Hemoglobin 9.9 g/dl (14.0-18.0); Lymphocyte % 7.2 %; Mean Corpuscular HGB Conc 31 g/dl (31-36); Mean Corpuscular Hemoglobin 22 pg (27-31); Mean Corpuscular Volume 72 fL (80-94); Mean Platelet Volume 8.6 fL (7.4-10.4); Nucleated Red Blood Cells % 0; Platelet Count 158 10^3/ul (150-450); Red Cell Distribution Width 18 % (10.5-15); White Blood Count 9.7 10^3/ul (3.5-10.8)
[2018-01-29 10:30] LABS: Albumin 3.6 g/dL (3.2-5.2); Albumin/Globulin Ratio 1.3 (1-3); BUN/Creatinine Ratio 15.8 (8-20); Calcium 8.5 mg/dL (8.6-10.3); EGFR Non-African American 15.3 (>60); Globulin 2.8 g/dL (2-4); Magnesium 2.1 mg/dL (1.9-2.7); Total Bilirubin 0.4 mg/dL (0.2-1.0); Total Protein 6.4 g/dL (6.4-8.9)
[2018-01-29 10:34] LABS: Potassium 5.3 mmol/L (3.5-5.0)
--- NOTE | 2018-01-29 10:41 | PN ---
Progress Note - Progress Note Date of Service: 01/29/18 SOAP: Subjective: CC: abd pain HPI: 57 year old man with ascites admitted with vomiting and abd pain which resolved shortly after arrival. Paracentesis yesterday which he tolerated well. No fever or rash. He is hungry, has had diarrhea since lactulose. Objective: Vital Signs Temp 36.4 C 01/29/18 08:39 Pulse 83 01/29/18 08:39 Resp 18 01/29/18 08:39 BP 145/77 01/29/18 08:39 Pulse Ox 95 01/29/18 08:39 Intake & Output 01/28/18 01/29/18 01/29/18 18:59 06:59 18:59 Intake Total 350 0 360 Output Total 280 975 Balance 70 -975 360 Intake: IV Fluids 350 ABX - PIPERACILLIN 240 D10W 110 Oral 0 0 360 Output: Urine 0 Pal 280 975 Other: # Bowel Movements 3 1 Estimated Stool Amount Medium Medium Gen:awake, no distress HEENT: no thrush Heart:RRR no murmur Lungs:CTA BL Abd:+BS distended, soft, bulging flanks Skin: no rash MSK: no spine tenderness Laboratory Results - last 24 hr 01/28/18 01/28/18 01/28/18 05:53 11:14 15:03 WBC RBC Hgb Hct MCV MCH MCHC RDW Plt Count MPV Neut % (Auto) Lymph % (Auto) [place] % (Auto) Eos % (Auto) Baso % (Auto) Absolute Neuts (auto) Absolute Lymphs (auto) Absolute Monos (auto) Absolute Eos (auto) Absolute Basos (auto) Absolute Nucleated RBC Nucleated RBC % Sodium Potassium Chloride Carbon Dioxide Anion Gap BUN Creatinine Est GFR ( Amer) Est GFR (Non-Af Amer) BUN/Creatinine Ratio Glucose POC Glucose (mg/dL) 204 H 180 H Calcium Magnesium Total Bilirubin AST ALT Alkaline Phosphatase Ammonia Total Protein Albumin Globulin Albumin/Globulin Ratio 25-OH Vitamin D Total 9.7 L Fluid Source Fluid Volume Fluid Color Fluid Appearance Fluid WBC Fluid RBC Fluid Tot Cell Count Fluid Neutrophils Fluid Band Neutrophils Fluid Lymphocytes Fluid Reactive Lymphs Fluid Monocytes Fluid Other Cells 01/28/18 01/28/18 01/29/18 15:35 19:16 01:29 WBC RBC Hgb Hct MCV MCH MCHC RDW Plt Count MPV Neut % (Auto) Lymph % (Auto) [place] % (Auto) Eos % (Auto) Baso % (Auto) Absolute Neuts (auto) Absolute Lymphs (auto) Absolute Monos (auto) Absolute Eos (auto) Absolute Basos (auto) Absolute Nucleated RBC Nucleated RBC % Sodium 132 L Potassium 5.3 H Chloride 102 Carbon Dioxide 23 Anion Gap 7 BUN 69 H Creatinine 4.55 H Est GFR ( Amer) 16.2 Est GFR (Non-Af Amer) 13.4 BUN/Creatinine Ratio 15.2 Glucose 211 H POC Glucose (mg/dL) 178 H Calcium 8.4 L Magnesium 2.3 Total Bilirubin AST ALT Alkaline Phosphatase Ammonia Total Protein Albumin Globulin Albumin/Globulin Ratio 25-OH Vitamin D Total Fluid Source Peritonial fluid Fluid Volume 2000 Fluid Color Ramey Fluid Appearance Cloudy Fluid WBC 2858 Fluid RBC 1917 Fluid Tot Cell Count 100 Fluid Neutrophils 13 Fluid Band Neutrophils 1 Fluid Lymphocytes 80 Fluid Reactive Lymphs 1 Fluid Monocytes 5 Fluid Other Cells 10 01/29/18 01/29/18 01/29/18 03:38 07:24 09:52 WBC 9.7 RBC 4.50 Hgb 9.9 L Hct 32 L MCV 72 L MCH 22 L MCHC 31 RDW 18 H Plt Count 158 MPV 8.6 Neut % (Auto) 83.7 Lymph % (Auto) 7.2 [place] % (Auto) 7.3 Eos % (Auto) 1.0 Baso % (Auto) 0.8 Absolute Neuts (auto) 8.1 H Absolute Lymphs (auto) 0.7 L Absolute Monos (auto) 0.7 Absolute Eos (auto) 0.1 Absolute Basos (auto) 0.1 Absolute Nucleated RBC 0 Nucleated RBC % 0 Sodium Potassium Chloride Carbon Dioxide Anion Gap BUN Creatinine Est GFR ( Amer) Est GFR (Non-Af Amer) BUN/Creatinine Ratio Glucose POC Glucose (mg/dL) 186 H 193 H Calcium Magnesium Total Bilirubin AST ALT Alkaline Phosphatase Ammonia Total Protein Albumin Globulin Albumin/Globulin Ratio 25-OH Vitamin D Total Fluid Source Fluid Volume Fluid Color Fluid Appearance Fluid WBC Fluid RBC Fluid Tot Cell Count Fluid Neutrophils Fluid Band Neutrophils Fluid Lymphocytes Fluid Reactive Lymphs Fluid Monocytes Fluid Other Cells 01/29/18 01/29/18 09:52 09:52 WBC RBC Hgb Hct MCV MCH MCHC RDW Plt Count MPV Neut % (Auto) Lymph % (Auto) [place] % (Auto) Eos % (Auto) Baso % (Auto) Absolute Neuts (auto) Absolute Lymphs (auto) Absolute Monos (auto) Absolute Eos (auto) Absolute Basos (auto) Absolute Nucleated RBC Nucleated RBC % Sodium 131 L Potassium 5.3 H Chloride 100 L Carbon Dioxide 25 Anion Gap 6 BUN 64 H Creatinine 4.06 H Est GFR ( Amer) 18.5 Est GFR (Non-Af Amer) 15.3 BUN/Creatinine Ratio 15.8 Glucose 254 H POC Glucose (mg/dL) Calcium 8.5 L Magnesium 2.1 Total Bilirubin 0.40 AST 21 ALT 19 Alkaline Phosphatase 108 H Ammonia 69 H Total Protein 6.4 Albumin 3.6 Globulin 2.8 Albumin/Globulin Ratio 1.3 25-OH Vitamin D Total Fluid Source Fluid Volume Fluid Color Fluid Appearance Fluid WBC Fluid RBC Fluid Tot Cell Count Fluid Neutrophils Fluid Band Neutrophils Fluid Lymphocytes Fluid Reactive Lymphs Fluid Monocytes Fluid Other Cells Assessment: 1. abd pain, resolved 2. ascites, lymphocytic predominance, I do not think he has SBP 3. Acute kidney injury with CKD 4. hx alcohol abuse Plan: 1. NKIO christian, follow abd symptoms and temp
--- NOTE | 2018-01-29 17:24 | PN ---
Subjective Date of Service: 01/29/18 Interval History: Pt seen and examined. Meds and labs reviewed. Updated pts father and at bedside. CC: N/A ROS: Denied HARO/dizziness, F/C, N/V, CP, SOB, increased cough, sputum production , abd pain, diarrhea, constipation, dysuria, myalgias, arthralgias, throat pain , and new skin lesions. The rest of the 14 point ROS are unremarkable. PHYSICAL EXAM: GEN APPEARANCE: Awake, not in acute distress, less confused, not oriented to time and person, mild anasarca HEENT: NC/AT, PERRLA, moist oral mucosa, (-) throat erythema NECK: Soft, supple, (-) cervical LAD, (-)JVD HEART: S1S2 WNL, RRR, No MRG CHEST: CTA, BL, GAE, No W/R/R ABD: Soft, distended/NT, NABS 4x Q EXT: No C/C/all 4 extremities edematous +2 SKIN: Warm to touch PSYCH: No active psychosis, hallucinations, depression, SI/HI NEURO: (+)Asterexis, improved Objective Active Medications: Albuterol (Ventolin Hfa Inhaler*) 1 puff INH BID PRN PRN Reason: WHEEZING Aspirin (Aspirin Ec Tab*) 81 mg PO DAILY [facility] Last Admin: 01/29/18 08:53 Dose: 81 mg Atorvastatin Calcium (Lipitor*) 80 mg PO DAILY [facility] Last Admin: 01/29/18 08:53 Dose: 80 mg Dextrose (D50w Syringe 50 Ml*) 12.5 gm IV PUSH .FOR FS < 60 - SS PRN PRN Reason: FS < 60 Diltiazem HCl (Cardizem Tab*) 30 mg PO BID [facility] Last Admin: 01/29/18 08:53 Dose: 30 mg Heparin Sodium (Porcine) (Heparin Vial(*)) 5,000 units SUBCUT Q12HR [facility] Last Admin: 01/29/18 08:54 Dose: 5,000 units Insulin Human Lispro (Humalog*) 0 units SUBCUT AC [facility]; Protocol Last Admin: 01/29/18 16:50 Dose: 6 units Lactulose (Lactulose*) 30 ml PO QID [facility] Last Admin: 01/29/18 16:50 Dose: 30 ml Magnesium Oxide (Magox 400 Tab*) 400 mg PO DAILY [facility] Last Admin: 01/29/18 08:53 Dose: 400 mg Metoprolol Succinate (Toprol Xl Tab*) 25 mg PO DAILY [facility] Last Admin: 01/29/18 08:54 Dose: 25 mg Mometasone Furoate/Formoterol Fumar (Dulera 200/5 Mdi*) 2 puff INH BID [facility]; Protocol Last Admin: 01/29/18 08:07 Dose: Not Given Nitroglycerin (Nitroglycerin Tab 0.4 Mg*) 0.4 mg SL Q5M PRN PRN Reason: ANGINA Omeprazole (Prilosec Cap*) 20 mg PO DAILY@0600 [facility] Last Admin: 01/29/18 05:46 Dose: 20 mg Ondansetron HCl (Zofran Inj*) 4 mg IV Q6H PRN PRN Reason: NAUSEA Tramadol HCl (Ultram*) 25 mg PO Q12H PRN PRN Reason: DISCOMFORT Last Admin: 01/29/18 04:40 Dose: 25 mg Vital Signs - 8 hr 01/29/18 01/29/18 11:19 15:14 Temperature 97.4 F Pulse Rate 65 76 Respiratory 16 18 Rate Blood Pressure 144/67 150/83 (mmHg) O2 Sat by Pulse 99 100 Oximetry Oxygen Devices in Use Now: Nasal Cannula Result Diagrams: 01/29/18 09:52 01/29/18 09:52 Additional Lab and Data: Lab Results 01/26/18 01/26/18 Range/Units 17:42 17:48 WBC 9.0 (3.5-10.8) 10^3/ul RBC 5.34 (4.00-5.40) 10^6/ul Hgb 11.6 L (14.0-18.0) g/dl Hct 38 L (42-52) % MCV 72 L (80-94) fL MCH 22 L (27-31) pg MCHC 30 L (31-36) g/dl RDW 18 H (10.5-15) % Plt Count 237 (150-450) 10^3/ul MPV 9.1 (7.4-10.4) fL Neut % (Auto) 82.5 % Lymph % (Auto) 10.8 % [place] % (Auto) 5.7 % Eos % (Auto) 0.3 % Baso % (Auto) 0.7 % Absolute Neuts (auto) 7.4 (1.5-7.7) 10^3/ul Absolute Lymphs (auto) 1.0 (1.0-4.8) 10^3/ul Absolute Monos (auto) 0.5 (0-0.8) 10^3/ul Absolute Eos (auto) 0 (0-0.6) 10^3/ul Absolute Basos (auto) 0.1 (0-0.2) 10^3/ul Absolute Nucleated RBC 0 10^3/ul Nucleated RBC % 0.1 POC Glucose (mg/dL) 31 L* (70-100) mg/dL Microbiology and Other Data: Microbiology 01/28/18 15:35 Gram Stain - Preliminary Body Fluid - Abdominal 01/26/18 20:25 Urine Culture - Final Urine Kavya Albicans EKG Data: ekg paced rhythm Assess/Plan/Problems-Billing Assessment: this is a 57 yr old wm with prob hx of etoh related ascites presented to er with intractable n /v abd pain for one week. pt was found hypotensive and hypoglycemia when arrived to er with sbp 90 f/s 30. ct of abd showed loculated ascites ---> surgery Dr Florentino will see him in am he was found to have uti currently on zosyn - Patient Problems (1) Ascites Current Visit: Yes Status: Acute Code(s): R18.8 - OTHER ASCITES SNOMED Code(s): 040090170 Comment: -Agree with Dr. Bland that cell differential in addition to clinical presentation is not consistent w/SBP, hence, Zosyn has been D/Cd -Given lymphocytic predominance, suspicion for possible carcinomatous process is more ominous given his significant tobacco abuse history but quit 15 years ago -Pls see yesterday's note for other differentials considered -Will await ordered labs detailed in my note yesterday (2) UTI (urinary tract infection) Current Visit: No Status: Acute Priority: High Onset Date: 04/30/14 Comment: -Completed 3 days of Zosyn (3) Encephalopathy Current Visit: Yes Status: Acute Code(s): G93.40 - ENCEPHALOPATHY, UNSPECIFIED SNOMED Code(s): 76471626 Comment: -Improved -Unclear cause whether hepatic or metabolic -Continue Lactulose (4) Acute on chronic renal insufficiency Current Visit: Yes Status: Acute Code(s): N28.9 - DISORDER OF KIDNEY AND URETER, UNSPECIFIED; N18.9 - CHRONIC KIDNEY DISEASE, UNSPECIFIED SNOMED Code(s ): 686901228 Comment: -Still awaiting rest of ordered urine lytes to calculate for FE-Urea and FENa -No evidence of hydronephrosis on U/S -Will hold off on diuretics for now -Ordered SPEP/UPEP -Will await any further input from Dr. Ch (5) Diabetes Current Visit: No Status: Chronic Priority: High Code(s): E11.9 - TYPE 2 DIABETES MELLITUS WITHOUT COMPLICATIONS SNOMED Code(s): 87265701 Comment: -Well-controlled -Continue current regimen (6) Diastolic HF (heart failure) Current Visit: Yes Status: Acute Code(s): I50.30 - UNSPECIFIED DIASTOLIC ( CONGESTIVE) HEART FAILURE SNOMED Code(s): 779390860 Comment: -Will continue to monitor (7) DVT prophylaxis Current Visit: No Status: Acute Code(s): DCJ7461 - SNOMED Code(s): 740279748 Comment: -Continue SQ [id number] Status and Disposition: -As above -For PT eval -Will advance diet in AM as pt less confused today and more interactive
--- NOTE | 2018-01-29 20:20 | CONS ---
CONSULTATION REPORT: DATE OF CONSULT: 01/29/18 REQUESTING PROVIDER: Dr. Perkins. CONSULTING SERVICE: Nephrology. REASON FOR CONSULTATION: Acute on chronic kidney disease and hyperammonemia. HISTORY OF PRESENT ILLNESS: A 57-year-old male with a history of chronic ascites in the setting of congestive heart failure, chronic kidney disease, hypertension, and diabetes, on oral medications, came into the hospital with worsening abdominal pain, nausea, vomiting, loose stools without fever. The patient reports that he has had multiple hospitalizations over the last few months for fluid overload and ascites that have responded to IV and oral diuretics, reports that he has not needed a paracentesis so far. The patient was noted to have loculated ascites on imaging and the patient is status post paracentesis of 2 L of cloudy fluid, noted to have some lymphocytes, the cytology on this is currently pending. The patient has also been seen by Infectious Disease and was initially being treated for possible SBP and with current consideration to hold off on his antibiotics. The patient denies a history of known liver problems, was alcoholic and was drinking heavily for many years but stopped this more than 15 years ago, and also has not traveled outside the country. Denies any known exposure to tuberculosis, has not worked in the [employer], and in fact has not been able to have a job and his parents report some learning disability when he was a child and difficulty in school. The patient also was noted to be hyperammonemic when he initially presented to the hospital with the ammonia level noted to be 121 and this is improved to 69 today with lactulose therapy. The patient's AST noted to be 15, ALT noted to be 12, alkaline phosphatase noted to be 88. The patient's initial BUN and creatinine noted to be 72 and 4.73 with baseline noted to be fluctuating but noted to be in the 1.6 to 1.8 range with some episodes of CARLOS which have resolved. The patient's creatinine bumped up to 5.14 yesterday and currently improved to 4.5. The patient's potassium noted to be 5.3. With respect to the hyperammonemia, the patient also denies a history of gastric bypass surgery. Developmental history is as described above, and interestingly, the patient also noted to have deficiency in other vitamins and minerals including noted to have a low vitamin D and iron levels. PAST MEDICAL HISTORY: 1. Chronic kidney disease. 2. Congestive heart failure with multiple hospitalizations. 3. Status post pacemaker placement. 4. Coronary artery disease and history of PCI. 5. Type 2 diabetes, on metformin and sitagliptin. 6. History of alcohol abuse, abstained for the last 15 years. 7. Chronic ascites. 8. Anemia. 9. AFib, on Xarelto. 10. COPD. 11. Obstructive sleep apnea, not compliant with CPAP. 12. Hyperlipidemia. 13. History of ureteral stone and left ureteral stent. MEDICATION LIST: Home medications include: 1. Tramadol 50 mg p.o. q.12 hours p.r.n. 2. Bactrim 1 tab p.o. b.i.d. 3. Sitagliptin/metformin 1 tab p.o. b.i.d. 4. Xarelto 20 mg p.o. daily. 5. Omeprazole 20 mg p.o. daily. 6. Nitroglycerin p.r.n. 7. Metoprolol 25 mg p.o. daily. 8. Magnesium oxide 400 mg p.o. daily. 9. Lisinopril 2.5 mg p.o. q.a.m. 10. Hydrochlorothiazide 25 mg p.o. daily. 11. Gabapentin 300 mg p.o. b.i.d. 12. Lasix 40 mg p.o. daily. 13. Ferrous sulfate 325 mg p.o. every other day. 14. Colace. 15. Cardizem 30 mg b.i.d. 16. Cetirizine 10 mg p.o. daily. 17. Symbicort 2 puffs inhalation b.i.d. 18. Atorvastatin 80 mg p.o. daily. 19. Aspirin 81 mg p.o. daily. 20. Albuterol 1 puff inhalation b.i.d. p.r.n. 21. Tylenol 1000 mg p.o. q.12 p.r.n. 22. Maalox 30 mg p.o. q.6 p.r.n. FAMILY HISTORY: Notable for type 2 diabetes in the family. Denies any known family history of autoimmune or kidney disease or known genetic disorders. SOCIAL HISTORY: The patient reports that he does not drink and other history as described above. REVIEW OF SYSTEMS: As described in the HPI. Other review of systems in 14- point review of systems noted to be negative. PHYSICAL EXAMINATION: Vitals: Temperature 37, heart rate 70, respiratory rate 16, blood pressure 150/70, oxygen saturation 96%. HEENT: NC/AT. Heart: S1, S2 present. Irregular at the time of exam. No murmurs noted. Lungs: Decreased breath sounds bilaterally. No auscultated crackles at time of exam. Abdomen: Significant ascites with some diffuse tenderness to palpation. No rebound. No guarding. Extremities: Noted to have 2+ edema and overall patient noted to have anasarca. DIAGNOSTIC STUDIES/LAB DATA: Labs have been reviewed in detail as described in the HPI section. Hemoglobin 9.8. The patient noted to be iron deficient, deficient in vitamin D, creatinine noted to be 5, BUN 73 initially. INR noted to be 1.1 initially, and liver function tests noted to be close to normal range. ASSESSMENT AND PLAN: A 57 -year-old male with a history of congestive heart failure, chronic kidney disease, history of alcohol use, type 2 diabetes, hypertension, being seen in evaluation for acute kidney injury and hyperammonemia. 1. This is an interesting case with multiple differentials. With respect to the hyperammonemia, it could be secondary to liver disorders. However, the patient does not show functional elevation in his liver function tests. Hepatitis panel to be checked for completion. The patient also has a history of alcohol use, but reports that he has been abstinent for over 10 years. 2. Other etiology for hyperammonemia can be considered and multiple etiologies are possible. However, bacterial overgrowth syndrome/small intestinal bacterial overgrowth is possible given that he has iron deficiency and vitamin D deficiency and zinc deficiency is a known cause of hyperammonemia as it is an important cofactor for OTC. OTC deficiency can cause hyperammonemia. Urea- cycle disorders are possible and can present in adulthood especially in situation of multiple hospitalizations and stressors, a mild deficiency may be manifested. The patient also interestingly had a difficult childhood with learning disabilities. At this point, recommend checking vitamin B12 and zinc level. The vitamin B12 level would come back quickly, if this is also noted to be deficient, this route can possibly be pursued further. It would still be important to find the etiology of his bacterial overgrowth, which could possibly be secondary to peritoneal carcinomatosis given that he does have some lymphocyte predominance in his ascitic fluid. Also noted to have a loculated ascites in which case malignancy is a big possibility. Even though tuberculosis is in the differential, the patient denies any known exposure and has not traveled outside the country. Can await cytology on the ascitic fluid and this would be important in determining further etiology. Peritoneal carcinomatosis or other abdominal etiology/malignancy/dysmotility from his diabetes can definitely predispose him to bacterial overgrowth with D-lactic acidosis and zinc deficiency. This is also seen in patients with a history of gastric bypass who then develop hyperammonemia. However, the patient denies a history of this in the past. 3. With respect to the acute kidney injury, the patient does have a history of chronic kidney disease given that he has hypertension, diabetes. Baseline creatinine in the 1.6 to 1.8 range. Acute elevation could be secondary to prerenal etiology in the setting of abdominal compartment syndrome from increased ascites and increased intraabdominal pressure leading to decreased renal perfusion and the patient's kidney function has improved a little bit after paracentesis. Can consider further paracentesis to relieve the abdomen as well. Other etiologies including nephrotic syndrome can be considered in this case given that he has 2+ protein and anasarca on presentation with ascites. Recommend checking urine proteinuria. Even though this may be inaccurate in the acute setting, recommend checking urine, random protein, urine random creatinine, and urine microalbumin level to quickly assess the amount of proteinuria that the patient has. Also recommend checking serum and urine electrophoresis and free light chains to see if the patient has, for instance, amyloidosis or other paraproteinemia that could be predisposing him to proteinuria and his acute presentation. These can also cause hyperammonemia , but recommend starting the basic workup with just SPEP, UPEP, SSA, and urine protein assessment before further testing. Also recommend checking MARCELLA and checking for scleroderma as the patient noted to have loculated ascites and some loculated pleural effusion as well. 4. Recommend checking CPK level for completion and repeating urinalysis and urine culture. On the patient's outpatient med list, it appears that the patient was on Bactrim which is currently on hold. Also agree with holding the metformin that the patient was on and the lisinopril in the acute setting. 5. If based on the above workup, can decide further if we are going to pursue the genetic pathway and explore urea cycle disorders, most common being OTC deficiency, possible zinc deficiency that could be contributing to OTC deficiency in the setting of bacterial overgrowth syndrome or other etiology including malignancy /peritoneal carcinomatosis leading to overgrowth which is high on the differential. 6. We will follow this interesting patient with the hospitalist service. TIME SPENT: Total time spent with the patient is equal to 60 minutes. [id number]/CPS #: [id number] MTDD
[2018-01-29 22:17] LABS: Urine Appearance Cloudy; Urine Bacteria Absent (Absent); Urine Bilirubin Negative (Negative); Urine Blood 3+ (Negative); Urine Color Yellow; Urine Glucose Negative (Negative); Urine Ketones Negative (Negative); Urine Nitrite Negative (Negative); Urine Protein 2+(100 mg/dL) (Negative); Urine Red Blood Cell 3+(>10/hpf) (Absent); Urine Specific Gravity 1.011 (1.010-1.030); Urine Urobilinogen Negative (Negative); Urine White Blood Cell 3+(>20/hpf) (Absent)
[2018-01-29 22:50] LABS: UR Microalbumin (mg/L) 245.8; Urine Creatinine 83.5 mg/dL; Urine Microalbumin/Creatinine 294.3 (<31)
[2018-01-30] MEDS: Omeprazole CAP* 20 MG PO SCH (05:36)
[2018-01-30] MEDS: Mometasone/Formoter 200/5 MDI INH SCH ×2 (08:10→20:38)
[2018-01-30] MEDS: Insulin LISPRO* 1 UNITS UNIT SUBCUT SCH ×3 (08:34→17:00)
[2018-01-30] MEDS: Aspirin EC TAB* 81 MG TAB.EC PO SCH (08:34)
[2018-01-30] MEDS: Magnesium Oxide TAB* 400 MG PO SCH (08:34)
[2018-01-30] MEDS: Atorvastatin* 80 MG TAB PO SCH (08:34)
[2018-01-30] MEDS: Metoprolol Succinate XL TAB* 25 MG PO SCH (08:34)
[2018-01-30] MEDS: Diltiazem TAB* 30 MG PO SCH ×2 (08:34→21:21)
[2018-01-30] MEDS: Heparin VIAL(*) 5000 UNITS/ML VIAL (FIVE THOUSAND) SUBCUT SCH ×2 (08:35→21:21)
--- NOTE | 2018-01-30 19:48 | PN ---
Subjective Date of Service: 01/30/18 Interval History: Pt seen and examined. Meds and labs reviewed. Spoke and touched base w/pts brother today, Angel at: [phone]. Pts brother mentioned that when they visited him yesterday, pt was complaining of some burning smell that other people in the room does not smell. Although he did not mention this to me on my visit today. CC: N/A ROS: Denied HARO/dizziness, F/C, N/V, CP, SOB, increased cough, sputum production , abd pain, diarrhea, constipation, dysuria, myalgias, arthralgias, throat pain , and new skin lesions. The rest of the 14 point ROS are unremarkable. PHYSICAL EXAM: GEN APPEARANCE: Awake, not in acute distress, oriented to person and place, but not to time HEENT: NC/AT, PERRLA, moist oral mucosa, (-) throat erythema NECK: Soft, supple, (-) cervical LAD, (-)JVD HEART: S1S2 WNL, RRR, No MRG CHEST: CTA, BL, GAE, No W/R/R ABD: Soft, distended/NT, NABS 4x Q EXT: No C/C/all 4 extremities edematous +1-2 SKIN: Warm to touch PSYCH: No active psychosis, hallucinations, depression, SI/HI NEURO: (+)Asterexis, continuous to improve Objective Active Medications: Albuterol (Ventolin Hfa Inhaler*) 1 puff INH BID PRN PRN Reason: WHEEZING Aspirin (Aspirin Ec Tab*) 81 mg PO DAILY [facility] Last Admin: 01/30/18 08:34 Dose: 81 mg Atorvastatin Calcium (Lipitor*) 80 mg PO DAILY [facility] Last Admin: 01/30/18 08:34 Dose: 80 mg Dextrose (D50w Syringe 50 Ml*) 12.5 gm IV PUSH .FOR FS < 60 - SS PRN PRN Reason: FS < 60 Diltiazem HCl (Cardizem Tab*) 30 mg PO BID [facility] Last Admin: 01/30/18 08:34 Dose: 30 mg Furosemide (Lasix Iv*) 40 mg IV DAILY [facility] Heparin Sodium (Porcine) (Heparin Vial(*)) 5,000 units SUBCUT Q12HR [facility] Last Admin: 01/30/18 08:35 Dose: 5,000 units Insulin Human Lispro (Humalog*) 0 units SUBCUT AC [facility]; Protocol Last Admin: 01/30/18 17:00 Dose: 3 units Lactulose (Lactulose*) 30 ml PO QID [facility] Last Admin: 01/30/18 17:00 Dose: 30 ml Magnesium Oxide (Magox 400 Tab*) 400 mg PO DAILY [facility] Last Admin: 01/30/18 08:34 Dose: 400 mg Metoprolol Succinate (Toprol Xl Tab*) 25 mg PO DAILY [facility] Last Admin: 01/30/18 08:34 Dose: 25 mg Mometasone Furoate/Formoterol Fumar (Dulera 200/5 Mdi*) 2 puff INH BID [facility]; Protocol Last Admin: 01/30/18 08:10 Dose: 2 puff Nitroglycerin (Nitroglycerin Tab 0.4 Mg*) 0.4 mg SL Q5M PRN PRN Reason: ANGINA Omeprazole (Prilosec Cap*) 20 mg PO DAILY@0600 [facility] Last Admin: 01/30/18 05:36 Dose: 20 mg Ondansetron HCl (Zofran Inj*) 4 mg IV Q6H PRN PRN Reason: NAUSEA Tramadol HCl (Ultram*) 25 mg PO Q12H PRN PRN Reason: DISCOMFORT Last Admin: 01/29/18 20:45 Dose: 25 mg Vital Signs - 8 hr 01/30/18 15:58 Temperature 97.2 F Pulse Rate 81 Respiratory 22 Rate Blood Pressure 138/74 (mmHg) O2 Sat by Pulse 99 Oximetry Oxygen Devices in Use Now: Nasal Cannula Result Diagrams: 01/29/18 09:52 01/29/18 09:52 Additional Lab and Data: Lab Results 01/26/18 01/26/18 Range/Units 17:42 17:48 WBC 9.0 (3.5-10.8) 10^3/ul RBC 5.34 (4.00-5.40) 10^6/ul Hgb 11.6 L (14.0-18.0) g/dl Hct 38 L (42-52) % MCV 72 L (80-94) fL MCH 22 L (27-31) pg MCHC 30 L (31-36) g/dl RDW 18 H (10.5-15) % Plt Count 237 (150-450) 10^3/ul MPV 9.1 (7.4-10.4) fL Neut % (Auto) 82.5 % Lymph % (Auto) 10.8 % Park % (Auto) 5.7 % Eos % (Auto) 0.3 % Baso % (Auto) 0.7 % Absolute Neuts (auto) 7.4 (1.5-7.7) 10^3/ul Absolute Lymphs (auto) 1.0 (1.0-4.8) 10^3/ul Absolute Monos (auto) 0.5 (0-0.8) 10^3/ul Absolute Eos (auto) 0 (0-0.6) 10^3/ul Absolute Basos (auto) 0.1 (0-0.2) 10^3/ul Absolute Nucleated RBC 0 10^3/ul Nucleated RBC % 0.1 POC Glucose (mg/dL) 31 L* (70-100) mg/dL Microbiology and Other Data: Microbiology 01/28/18 15:35 Gram Stain - Preliminary Body Fluid - Abdominal 01/26/18 20:25 Urine Culture - Final Urine Kavya Albicans EKG Data: ekg paced rhythm Assess/Plan/Problems-Billing Assessment: this is a 57 yr old wm with prob hx of etoh related ascites presented to er with intractable n /v abd pain for one week. pt was found hypotensive and hypoglycemia when arrived to er with sbp 90 f/s 30. ct of abd showed loculated ascites ---> surgery Dr Florentino will see him in am he was found to have uti currently on zosyn - Patient Problems (1) Ascites Current Visit: Yes Status: Acute Code(s): R18.8 - OTHER ASCITES SNOMED Code(s): 249815329 Comment: -As component of Anasarca -Agree with Dr. Bland that cell differential in addition to clinical presentation is not consistent w/SBP, hence, Zosyn has been D/Cd on 01/29/18 -Given lymphocytic predominance, suspicion for possible carcinomatous process is more ominous given his significant tobacco abuse history but quit 15 years ago -Pls see yesterday's note for other differentials considered and suggested to be ruled out by Dr. Ch -Will await ordered labs detailed ordered -D/W Mr. Curtis today who mentioned will inform Dr. Schwed for F/U in the weekend please touch base with surgery for possible repeat therapeutic paracentesis -Started pt on daily Lasix IV and will continue to monitor renal functions -The fact that renal function improved w/therapeutic paracentesis seems to suggests some form of abdominal compartment syndrome from volume of ascitic fluid and drawing more or diuresing more may help kidney go back to baseline--- will defer w/Dr. Ch (2) UTI (urinary tract infection) Current Visit: No Status: Acute Priority: High Onset Date: 04/30/14 Comment: -Completed 3 days of Zosyn -Resolved -Repeat U/A still shows pyuria but pt is otherwise asymptomatic and maybe due to severe nephrotic syndrome or possible carcinoma??? (3) Encephalopathy Current Visit: Yes Status: Acute Code(s): G93.40 - ENCEPHALOPATHY, UNSPECIFIED SNOMED Code(s): 02576554 Comment: -Improved -Unclear cause whether hepatic or metabolic -Continue Lactulose -Possible cause of pts false sense of smell? If it persists despite, improvement of encephalopathy, please consider brain imaging---will hold off at this time and continue to observe as pts mental status appears to be improved -Appreciate Dr. Bunn inputplease see her detailed consult for other differentials added that is currently being worked up, i.e., SIBO given ALEXA and Vid D deficiency (awaiting zinc level) to make sure that OTC is not affected that may lead to hyperammonemiaimportant given peritoneal carcinomatosis can lead to SIBO, especially in the setting of loculated ascites that has lymphocytic predominance in differentials on diagnostic and therapeutic paracentesis -Quantiferon gold suggested by Dr. Ackerman is still pending although TB is low in my differential at this time -Vitamin B12 in the lower limit of normalwill send for methylmalonic acid as part of AM labs -CPK WNL (4) Acute on chronic renal insufficiency Current Visit: Yes Status: Acute Code(s): N28.9 - DISORDER OF KIDNEY AND URETER, UNSPECIFIED; N18.9 - CHRONIC KIDNEY DISEASE, UNSPECIFIED SNOMED Code(s ): 769877176 Comment: -Still awaiting rest of ordered urine lytes to calculate for FE-Urea and FENa -No evidence of hydronephrosis on U/S -Will hold off on diuretics for now -Waiting on SPEP/UPEP -Urine Microalb/Crea seems to be elated from reference value and may suggest some form of nephrotic syndrome, although the microalbumin parameter does not have unitswill defer further interpretation and next step with Dr. Ch in AM (5) Diabetes Current Visit: No Status: Chronic Priority: High Code(s): E11.9 - TYPE 2 DIABETES MELLITUS WITHOUT COMPLICATIONS SNOMED Code(s): 37044272 Comment: -Continue ISS -Consider adjusting ISS if FS consistently >180 in the hospital setting -Some increase may be due to increase PO intake? -Will add consistent carbohydrate diet to current renal diet (6) Diastolic HF (heart failure) Current Visit: Yes Status: Acute Code(s): I50.30 - UNSPECIFIED DIASTOLIC ( CONGESTIVE) HEART FAILURE SNOMED Code(s): 929269166 Comment: -Will continue to monitor (7) DVT prophylaxis Current Visit: No Status: Acute Code(s): UVO1793 - SNOMED Code(s): 492155840 Comment: -Continue SQ [id number] Status and Disposition: -As above -Continue PT given pt prefers to go home on D/C---will continue to observe for any needs when more medically improved
[2018-01-30] MEDS: Furosemide IV* 10 MG/ML VIAL (40 MG) IV SCH (21:22)
[2018-01-30 22:03] LABS: ABS Basophils 0.1 10^3/ul (0-0.2); ABS Eosinophils 0.2 10^3/ul (0-0.6); ABS Lymphocytes 1.1 10^3/ul (1.0-4.8); ABS Monocytes 0.7 10^3/ul (0-0.8); ABS Neutrophils 5.8 10^3/ul (1.5-7.7); ABS Nucleated RBC 0 10^3/ul; Eosinophil % 2.8 %; Hematocrit 34 % (42-52); Hemoglobin 10.4 g/dl (14.0-18.0); Lymphocyte % 13.5 %; Mean Corpuscular HGB Conc 31 g/dl (31-36); Mean Corpuscular Hemoglobin 22 pg (27-31); Mean Corpuscular Volume 72 fL (80-94); Mean Platelet Volume 8.6 fL (7.4-10.4); Nucleated Red Blood Cells % 0; Platelet Count 164 10^3/ul (150-450); Red Blood Count 4.73 10^6/ul (4.00-5.40); Red Cell Distribution Width 18 % (10.5-15); White Blood Count 7.8 10^3/ul (3.5-10.8)
[2018-01-30 22:10] LABS: Albumin 3.9 g/dL (3.2-5.2); Albumin/Globulin Ratio 1.3 (1-3); BUN/Creatinine Ratio 20.3 (8-20); Calcium 9.2 mg/dL (8.6-10.3); EGFR Non-African American 31.5 (>60); Globulin 3.1 g/dL (2-4); Magnesium 2.1 mg/dL (1.9-2.7); Phosphorus 3.2 mg/dL (2.5-5.0); Total Bilirubin 0.5 mg/dL (0.2-1.0)
[2018-01-30 22:15] LABS: Potassium 5.5 mmol/L (3.5-5.0)
[2018-01-30] MEDS ORDERED: Melatonin 3 MG TAB PO PRN (22:54)
[2018-01-31] MEDS: Omeprazole CAP* 20 MG PO SCH (05:13)
[2018-01-31] MEDS: Mometasone/Formoter 200/5 MDI INH SCH ×2 (07:55→20:30)
[2018-01-31] MEDS: Insulin LISPRO* 1 UNITS UNIT SUBCUT SCH ×3 (08:33→17:37)
[2018-01-31] MEDS: Heparin VIAL(*) 5000 UNITS/ML VIAL (FIVE THOUSAND) SUBCUT SCH ×2 (08:34→22:10)
[2018-01-31] MEDS: Furosemide IV* 10 MG/ML VIAL (40 MG) IV SCH ×2 (08:37→09:48)
[2018-01-31] MEDS: Metoprolol Succinate XL TAB* 25 MG PO SCH ×2 (08:37→09:48)
[2018-01-31] MEDS: Magnesium Oxide TAB* 400 MG PO SCH ×2 (08:37→09:48)
[2018-01-31] MEDS: Atorvastatin* 80 MG TAB PO SCH ×2 (08:37→09:48)
[2018-01-31] MEDS: Aspirin EC TAB* 81 MG TAB.EC PO SCH ×2 (08:37→09:47)
[2018-01-31] MEDS: Diltiazem TAB* 30 MG PO SCH ×3 (08:38→22:10)
[2018-01-31 11:39] LABS: ABS Basophils 0.1 10^3/ul (0-0.2); ABS Eosinophils 0.1 10^3/ul (0-0.6); ABS Lymphocytes 0.8 10^3/ul (1.0-4.8); ABS Monocytes 0.6 10^3/ul (0-0.8); ABS Neutrophils 5.8 10^3/ul (1.5-7.7); ABS Nucleated RBC 0 10^3/ul; Eosinophil % 1.8 %; Hematocrit 31 % (42-52); Hemoglobin 9.7 g/dl (14.0-18.0); Lymphocyte % 10.7 %; Mean Corpuscular HGB Conc 31 g/dl (31-36); Mean Corpuscular Hemoglobin 22 pg (27-31); Mean Corpuscular Volume 70 fL (80-94); Mean Platelet Volume 8.3 fL (7.4-10.4); Nucleated Red Blood Cells % 0; Platelet Count 181 10^3/ul (150-450); Red Blood Count 4.46 10^6/ul (4.00-5.40); Red Cell Distribution Width 18 % (10.5-15); White Blood Count 7.4 10^3/ul (3.5-10.8)
[2018-01-31 11:54] LABS: Albumin 3.7 g/dL (3.2-5.2); Albumin/Globulin Ratio 1.2 (1-3); BUN/Creatinine Ratio 20.8 (8-20); Calcium 9.3 mg/dL (8.6-10.3); EGFR Non-African American 35.2 (>60); Globulin 3.1 g/dL (2-4); Total Bilirubin 0.6 mg/dL (0.2-1.0); Total Protein 6.8 g/dL (6.4-8.9)
[2018-01-31 12:10] LABS: Potassium 5.3 mmol/L (3.5-5.0)
[2018-01-31] MEDS ORDERED: Furosemide IV* 10 MG/ML VIAL (40 MG) IV ONE (16:54)
--- NOTE | 2018-01-31 17:22 | PN ---
Subjective Date of Service: 01/31/18 Interval History: Very confused this am and uncooperative.Refused meds blood work and other tests.More cooperative through the day Objective Active Medications: Albuterol (Ventolin Hfa Inhaler*) 1 puff INH BID PRN PRN Reason: WHEEZING Aspirin (Aspirin Ec Tab*) 81 mg PO DAILY [facility] Last Admin: 01/31/18 09:47 Dose: Not Given Atorvastatin Calcium (Lipitor*) 80 mg PO DAILY [facility] Last Admin: 01/31/18 09:48 Dose: Not Given Dextrose (D50w Syringe 50 Ml*) 12.5 gm IV PUSH .FOR FS < 60 - SS PRN PRN Reason: FS < 60 Diltiazem HCl (Cardizem Tab*) 30 mg PO BID [facility] Last Admin: 01/31/18 09:48 Dose: Not Given Furosemide (Lasix Iv*) 40 mg IV DAILY [facility] Last Admin: 01/31/18 09:48 Dose: Not Given Heparin Sodium (Porcine) (Heparin Vial(*)) 5,000 units SUBCUT Q12HR [facility] Last Admin: 01/31/18 08:34 Dose: Not Given Insulin Human Lispro (Humalog*) 0 units SUBCUT AC [facility]; Protocol Last Admin: 01/31/18 12:44 Dose: 6 units Lactulose (Lactulose*) 30 ml PO QID [facility] Last Admin: 01/31/18 12:45 Dose: Not Given Magnesium Oxide (Magox 400 Tab*) 400 mg PO DAILY [facility] Last Admin: 01/31/18 09:48 Dose: Not Given Melatonin (Melatonin) 3 mg PO BEDTIME PRN PRN Reason: INSOMNIA Metoprolol Succinate (Toprol Xl Tab*) 25 mg PO DAILY [facility] Last Admin: 01/31/18 09:48 Dose: Not Given Mometasone Furoate/Formoterol Fumar (Dulera 200/5 Mdi*) 2 puff INH BID [facility]; Protocol Last Admin: 01/31/18 07:55 Dose: 2 puff Nitroglycerin (Nitroglycerin Tab 0.4 Mg*) 0.4 mg SL Q5M PRN PRN Reason: ANGINA Omeprazole (Prilosec Cap*) 20 mg PO DAILY@0600 [facility] Last Admin: 01/31/18 05:13 Dose: Not Given Ondansetron HCl (Zofran Inj*) 4 mg IV Q6H PRN PRN Reason: NAUSEA Tramadol HCl (Ultram*) 25 mg PO Q12H PRN PRN Reason: DISCOMFORT Last Admin: 01/29/18 20:45 Dose: 25 mg Zinc Sulfate (Zinc-220 Cap*) 220 mg PO DAILY [facility] Vital Signs - 8 hr 01/31/18 11:08 Temperature 97.4 F Pulse Rate 112 Respiratory 20 Rate Blood Pressure 156/70 (mmHg) O2 Sat by Pulse 97 Oximetry Oxygen Devices in Use Now: None Eyes: No Scleral Icterus Ears/Nose/Mouth/Throat: NL Teeth, Lips, Gums Neck: NL Appearance and Movements; NL JVP Respiratory: Symmetrical Chest Expansion and Respiratory Effort Cardiovascular: NL Sounds; No Murmurs; No JVD Abdominal: - - Distended, tense ascites, diffuse pain on palpation, no rebound no guarding Extremities: - - 2+ edema bilaterally Neurological: Alert and Oriented x 3, - - confused and mildly disoriented this am.improved on pm check Result Diagrams: 01/31/18 11:26 01/31/18 11:26 Additional Lab and Data: Lab Results 01/26/18 01/26/18 Range/Units 17:42 17:48 WBC 9.0 (3.5-10.8) 10^3/ul RBC 5.34 (4.00-5.40) 10^6/ul Hgb 11.6 L (14.0-18.0) g/dl Hct 38 L (42-52) % MCV 72 L (80-94) fL MCH 22 L (27-31) pg MCHC 30 L (31-36) g/dl RDW 18 H (10.5-15) % Plt Count 237 (150-450) 10^3/ul MPV 9.1 (7.4-10.4) fL Neut % (Auto) 82.5 % Lymph % (Auto) 10.8 % [place] % (Auto) 5.7 % Eos % (Auto) 0.3 % Baso % (Auto) 0.7 % Absolute Neuts (auto) 7.4 (1.5-7.7) 10^3/ul Absolute Lymphs (auto) 1.0 (1.0-4.8) 10^3/ul Absolute Monos (auto) 0.5 (0-0.8) 10^3/ul Absolute Eos (auto) 0 (0-0.6) 10^3/ul Absolute Basos (auto) 0.1 (0-0.2) 10^3/ul Absolute Nucleated RBC 0 10^3/ul Nucleated RBC % 0.1 POC Glucose (mg/dL) 31 L* (70-100) mg/dL Microbiology and Other Data: Microbiology 01/28/18 15:35 Gram Stain - Preliminary Body Fluid - Abdominal 01/26/18 20:25 Urine Culture - Final Urine Kavya Albicans EKG Data: ekg paced rhythm Assess/Plan/Problems-Billing Assessment: this is a 57 yr old wm with prob hx of etoh related ascites presented to er with intractable n /v abd pain for one week. pt was found hypotensive and hypoglycemia when arrived to er with sbp 90 f/s 30. ct of abd showed loculated ascites and hyperammonemia and renetta on ckd - Patient Problems (1) Acute on chronic renal insufficiency Current Visit: Yes Status: Acute Code(s): N28.9 - DISORDER OF KIDNEY AND URETER, UNSPECIFIED; N18.9 - CHRONIC KIDNEY DISEASE, UNSPECIFIED SNOMED Code(s ): 079358701 Comment: -Improving -Likely from dec renal perfusion in the setting of increased intraabdominal pressure/ascites -Improving post paracentesis of 2l -Does have proteinuria ,still needs 24h collection some other time of 1.1 g and 294 mg of microalbumin.Could be diabetes.But awaiting SPEP,UPEP,free light chains as well -No evidence of hydronephrosis on U/S -started on diuretics to help with volume overload and ascites.Will follow renal fx (2) Ascites Current Visit: Yes Status: Acute Code(s): R18.8 - OTHER ASCITES SNOMED Code(s): 712816941 Comment: -As component of Anasarca -Agree with Dr. Bland that cell differential in addition to clinical presentation is not consistent w/SBP, hence, Seymour has been D/Cd on 01/29/18 -Given lymphocytic predominance, suspicion for possible carcinomatous process is more ominous given his significant tobacco abuse history but quit 15 years ago -Pls see yesterday's note for other differentials considered and suggested to be ruled out in my consult note -Will await ordered labs detailed ordered -d/w surgery, loculated ascites.Will repeat CT abd pelvis today to evaluate reaccumulation and loculation.Malignancy also high on list.As if loculated may need imaging guidance for tap.Will continue diuretics to help with ascites and vol overload (3) Encephalopathy Current Visit: Yes Status: Acute Code(s): G93.40 - ENCEPHALOPATHY, UNSPECIFIED SNOMED Code(s): 43075757 Comment: -Hypermmonemia -Improved -Unclear cause whether hepatic or metabolic -Continue Lactulose ammonia improving -Appreciate Dr. Bunn inputplease see her detailed consult for other differentials added that is currently being worked up, i.e., SIBO given ALEXA and Vid D deficiency (awaiting zinc level) to make sure that OTC is not affected that may lead to hyperammonemiaimportant given peritoneal carcinomatosis can lead to SIBO, especially in the setting of loculated ascites that has lymphocytic predominance in differentials on diagnostic and therapeutic paracentesis -Quantiferon gold suggested by Dr. Ackerman is still pending although TB is low in my differential at this time -Vitamin B12 in the lower limit of normalwill send for methylmalonic acid as part of AM labs -CPK WNL -Will start on Zinc supplementation till Zinc level already sent comes back -Cytology pending (4) UTI (urinary tract infection) Current Visit: Yes Status: Acute Comment: Yeast No need to treat yeast in urine however pt very confused today despite improving ammonia levels.Will treat and add fluconazole (5) Hyperammonemia Current Visit: Yes Status: Acute Code(s): E72.20 - DISORDER OF UREA CYCLE METABOLISM, UNSPECIFIED SNOMED Code(s): 0474840 Comment: See above in encephalopathy Status and Disposition: -As above -Continue PT given pt prefers to go home on D/C---will continue to observe for any needs when more medically improved
[2018-01-31] MEDS: Zinc Sulfate CAP* 220 MG PO SCH (17:36)
[2018-01-31] MEDS: Fluconazole 100 MG TAB* TAB PO SCH (18:19)
--- NOTE | 2018-02-01 00:30 | PN ---
Hospitalist Progress Note Date of Service: 01/31/18 called to bedside that pt refused abd ct ---> spoke with him ---> went then got called that he refused to take his cardiazem and threw against the wall and nursing staff is concerned because his b/p 162/69 ( she was concerned this is high bp) this poem writer came to the floor and spoke with pt for 15 min he agreed to take it but held the med in his hand ---> had to go away for other pt---> asked for a male nurse to talk to him and he took it finally with ice cream ammonia level added on to am lab
[2018-02-01 06:01] LABS: Albumin Level Body Fluid 1590 mg/dL
[2018-02-01] MEDS: Omeprazole CAP* 20 MG PO SCH (06:09)
[2018-02-01 06:40] LABS: BUN/Creatinine Ratio 21.7 (8-20); Calcium 9.8 mg/dL (8.6-10.3); EGFR Non-African American 40.4 (>60)
[2018-02-01 06:41] LABS: Potassium 5.1 mmol/L (3.5-5.0)
[2018-02-01] MEDS: Mometasone/Formoter 200/5 MDI INH SCH ×2 (07:38→19:59)
[2018-02-01] MEDS: Furosemide IV* 10 MG/ML VIAL (40 MG) IV SCH (08:41)
[2018-02-01] MEDS: Heparin VIAL(*) 5000 UNITS/ML VIAL (FIVE THOUSAND) SUBCUT SCH ×2 (08:43→20:16)
[2018-02-01] MEDS: Insulin LISPRO* 1 UNITS UNIT SUBCUT SCH ×3 (08:43→16:58)
[2018-02-01] MEDS: Metoprolol Succinate XL TAB* 25 MG PO SCH (08:44)
[2018-02-01] MEDS: Diltiazem TAB* 30 MG PO SCH ×2 (08:45→20:15)
[2018-02-01] MEDS: Fluconazole 100 MG TAB* TAB PO SCH (08:45)
[2018-02-01] MEDS: Aspirin EC TAB* 81 MG TAB.EC PO SCH (08:46)
[2018-02-01] MEDS: Atorvastatin* 80 MG TAB PO SCH (08:46)
[2018-02-01] MEDS: Magnesium Oxide TAB* 400 MG PO SCH (08:46)
[2018-02-01] MEDS: Zinc Sulfate CAP* 220 MG PO SCH (08:47)
--- NOTE | 2018-02-01 15:37 | PN ---
Subjective Date of Service: 02/01/18 Interval History: Confused.Refusing medications,lactulose occasionally blood work. Improves through the day Objective Active Medications: Albuterol (Ventolin Hfa Inhaler*) 1 puff INH BID PRN PRN Reason: WHEEZING Aspirin (Aspirin Ec Tab*) 81 mg PO DAILY [facility] Last Admin: 02/01/18 08:46 Dose: 81 mg Atorvastatin Calcium (Lipitor*) 80 mg PO DAILY [facility] Last Admin: 02/01/18 08:46 Dose: 80 mg Dextrose (D50w Syringe 50 Ml*) 12.5 gm IV PUSH .FOR FS < 60 - SS PRN PRN Reason: FS < 60 Diltiazem HCl (Cardizem Tab*) 30 mg PO BID [facility] Last Admin: 02/01/18 08:45 Dose: 30 mg Fluconazole (Diflucan 100 Mg Tab*) 100 mg PO DAILY [facility] Last Admin: 02/01/18 08:45 Dose: 100 mg Furosemide (Lasix Iv*) 40 mg IV DAILY [facility] Last Admin: 02/01/18 08:41 Dose: 40 mg Heparin Sodium (Porcine) (Heparin Vial(*)) 5,000 units SUBCUT Q12HR [facility] Last Admin: 02/01/18 08:43 Dose: 5,000 units Insulin Human Lispro (Humalog*) 0 units SUBCUT AC [facility]; Protocol Last Admin: 02/01/18 12:23 Dose: 2 units Lactulose (Lactulose*) 30 ml PO QID [facility] Last Admin: 02/01/18 12:29 Dose: 30 ml Magnesium Oxide (Magox 400 Tab*) 400 mg PO DAILY [facility] Last Admin: 02/01/18 08:46 Dose: 400 mg Melatonin (Melatonin) 3 mg PO BEDTIME PRN PRN Reason: INSOMNIA Metoprolol Succinate (Toprol Xl Tab*) 25 mg PO DAILY [facility] Last Admin: 02/01/18 08:44 Dose: 25 mg Mometasone Furoate/Formoterol Fumar (Dulera 200/5 Mdi*) 2 puff INH BID [facility]; Protocol Last Admin: 02/01/18 07:38 Dose: 2 puff Nitroglycerin (Nitroglycerin Tab 0.4 Mg*) 0.4 mg SL Q5M PRN PRN Reason: ANGINA Omeprazole (Prilosec Cap*) 20 mg PO DAILY@0600 [facility] Last Admin: 02/01/18 06:09 Dose: Not Given Tramadol HCl (Ultram*) 25 mg PO Q12H PRN PRN Reason: DISCOMFORT Last Admin: 01/29/18 20:45 Dose: 25 mg Zinc Sulfate (Zinc-220 Cap*) 220 mg PO DAILY [facility] Last Admin: 02/01/18 08:47 Dose: 220 mg Vital Signs - 8 hr 02/01/18 02/01/18 02/01/18 07:39 08:00 08:31 Temperature 97.3 F Pulse Rate 103 115 Respiratory 20 20 20 Rate Blood Pressure 151/97 (mmHg) O2 Sat by Pulse 97 98 Oximetry 02/01/18 11:41 Temperature 98.8 F Pulse Rate 99 Respiratory 22 Rate Blood Pressure 157/79 (mmHg) O2 Sat by Pulse 99 Oximetry Oxygen Devices in Use Now: None Eyes: No Scleral Icterus Neck: NL Appearance and Movements; NL JVP Respiratory: Symmetrical Chest Expansion and Respiratory Effort, Clear to Auscultation Cardiovascular: NL Sounds; No Murmurs; No JVD Abdominal: - - BS present, non tender on palpation, ascites present Extremities: - - 2+ edema Skin: No Rash or Ulcers Neurological: - - confused.standing outside his room calmly.wants to go home Result Diagrams: 01/31/18 11:26 02/01/18 06:00 Additional Lab and Data: Lab Results 01/26/18 01/26/18 Range/Units 17:42 17:48 WBC 9.0 (3.5-10.8) 10^3/ul RBC 5.34 (4.00-5.40) 10^6/ul Hgb 11.6 L (14.0-18.0) g/dl Hct 38 L (42-52) % MCV 72 L (80-94) fL MCH 22 L (27-31) pg MCHC 30 L (31-36) g/dl RDW 18 H (10.5-15) % Plt Count 237 (150-450) 10^3/ul MPV 9.1 (7.4-10.4) fL Neut % (Auto) 82.5 % Lymph % (Auto) 10.8 % [place] % (Auto) 5.7 % Eos % (Auto) 0.3 % Baso % (Auto) 0.7 % Absolute Neuts (auto) 7.4 (1.5-7.7) 10^3/ul Absolute Lymphs (auto) 1.0 (1.0-4.8) 10^3/ul Absolute Monos (auto) 0.5 (0-0.8) 10^3/ul Absolute Eos (auto) 0 (0-0.6) 10^3/ul Absolute Basos (auto) 0.1 (0-0.2) 10^3/ul Absolute Nucleated RBC 0 10^3/ul Nucleated RBC % 0.1 POC Glucose (mg/dL) 31 L* (70-100) mg/dL Microbiology and Other Data: Microbiology 01/28/18 15:35 Gram Stain - Preliminary Body Fluid - Abdominal 01/26/18 20:25 Urine Culture - Final Urine Kavya Albicans EKG Data: ekg paced rhythm Assess/Plan/Problems-Billing Assessment: this is a 57 yr old wm with prob hx of etoh related ascites presented to er with intractable n /v abd pain for one week. pt was found hypotensive and hypoglycemia when arrived to er with sbp 90 f/s 30. ct of abd showed loculated ascites and hyperammonemia and renetta on ckd - Patient Problems (1) Acute on chronic renal insufficiency Current Visit: Yes Status: Acute Code(s): N28.9 - DISORDER OF KIDNEY AND URETER, UNSPECIFIED; N18.9 - CHRONIC KIDNEY DISEASE, UNSPECIFIED SNOMED Code(s ): 251541737 Comment: -Improving -Likely from dec renal perfusion in the setting of increased intraabdominal pressure/ascites -Improving post paracentesis of 2l -Does have proteinuria ,still needs 24h collection some other time of 1.1 g and 294 mg of microalbumin.Could be diabetes.But awaiting SPEP,UPEP,free light chains as well -No evidence of hydronephrosis on U/S -started on diuretics to help with volume overload and ascites.Will follow renal fx (2) Ascites Current Visit: Yes Status: Acute Code(s): R18.8 - OTHER ASCITES SNOMED Code(s): 005655624 Comment: -As component of Anasarca -Agree with Dr. Bland that cell differential in addition to clinical presentation is not consistent w/SBP, hence, Seymour has been D/Cd on 01/29/18 -Given lymphocytic predominance, suspicion for possible carcinomatous process is more ominous given his significant tobacco abuse history but quit 15 years ago -Pls see yesterday's note for other differentials considered and suggested to be ruled out in my consult note -Will await ordered labs detailed ordered -d/w surgery, loculated ascites.Repeated CT abd pelvis today to evaluate reaccumulation and loculation.Malignancy also high on list.As if loculated may need imaging guidance for tap.Will continue diuretics to help with ascites and vol overload and can titrate up (3) Encephalopathy Current Visit: Yes Status: Acute Code(s): G93.40 - ENCEPHALOPATHY, UNSPECIFIED SNOMED Code(s): 36128331 Comment: -Hypermmonemia -Improved -Unclear cause whether hepatic or metabolic -Continue Lactulose ammonia improving -Pl see consult for other differentials added that is currently being worked up , i.e., SIBO given ALEXA and Vid D deficiency (awaiting zinc level) to make sure that OTC is not affected that may lead to hyperammonemiaimportant given peritoneal carcinomatosis can lead to SIBO, especially in the setting of loculated ascites that has lymphocytic predominance in differentials on diagnostic and therapeutic paracentesis -Quantiferon gold -Vitamin B12 in the lower limit of normalsent methylmalonic acid as part of AM labs -CPK WNL -Will start on Zinc supplementation till Zinc level already sent comes back -Cytology from fluid pending -Non drinker per pt. But confused despite ammonia level improving.Tx for yeast uti?/ b12/thiamine -Evaluated med list to evaluate polypharmacy and meds that could be contributing to his confusion.Will stop Tramadol.Will stop melatonin as pt refusing most meds.Will wean off meds when not needed (4) UTI (urinary tract infection) Current Visit: Yes Status: Acute Comment: Yeast No need to treat yeast in urine however pt very confused today despite improving ammonia levels.Will treat and add fluconazole (5) Hyperammonemia Current Visit: Yes Status: Acute Code(s): E72.20 - DISORDER OF UREA CYCLE METABOLISM, UNSPECIFIED SNOMED Code(s): 1424418 Comment: See above in encephalopathy Status and Disposition: -Can be discharged when volume status and confusion improves and rest of w/u can be followed as OP
[2018-02-01] MEDS: Cyanocobalamin TAB* 500 MCG PO SCH (16:42)
[2018-02-01] MEDS: Thiamine TAB* 100 MG TAB PO SCH (16:42)
[2018-02-02] MEDS: Omeprazole CAP* 20 MG PO SCH (07:14)
[2018-02-02] MEDS: Mometasone/Formoter 200/5 MDI INH SCH ×2 (07:36→20:14)
[2018-02-02 07:40] LABS: Hematocrit 31 % (42-52); Hemoglobin 9.6 g/dl (14.0-18.0); Mean Corpuscular HGB Conc 32 g/dl (31-36); Mean Corpuscular Hemoglobin 22 pg (27-31); Mean Corpuscular Volume 69 fL (80-94); Mean Platelet Volume 8.2 fL (7.4-10.4); Platelet Count 196 10^3/ul (150-450); Red Cell Distribution Width 18 % (10.5-15); White Blood Count 8.5 10^3/ul (3.5-10.8)
[2018-02-02 07:49] LABS: Albumin/Globulin Ratio 1.1 (1-3); BUN/Creatinine Ratio 21.1 (8-20); Calcium 8.8 mg/dL (8.6-10.3); EGFR Non-African American 44.5 (>60); Globulin 2.8 g/dL (2-4); Potassium 3.8 mmol/L (3.5-5.0); Total Bilirubin 0.6 mg/dL (0.2-1.0); Total Protein 5.8 g/dL (6.4-8.9)
[2018-02-02 08:29] LABS: ABS Basophils 0.1 10^3/ul (0-0.2); ABS Eosinophils 0.1 10^3/ul (0-0.6); ABS Monocytes 0.7 10^3/ul (0-0.8); ABS Neutrophils 6.6 10^3/ul (1.5-7.7); ABS Nucleated RBC 0 10^3/ul; Eosinophil % 1.4 %; Lymphocyte % 11.7 %; Nucleated Red Blood Cells % 0
--- NOTE | 2018-02-02 09:58 | PN ---
Subjective Date of Service: 02/02/18 Interval History: Says he is having a good day. No pain. Notes belly is distended, but it doesn' t bother him and his appetite is good. Objective Active Medications: Albuterol (Ventolin Hfa Inhaler*) 1 puff INH BID PRN PRN Reason: WHEEZING Aspirin (Aspirin Ec Tab*) 81 mg PO DAILY [facility] Last Admin: 02/01/18 08:46 Dose: 81 mg Atorvastatin Calcium (Lipitor*) 80 mg PO DAILY [facility] Last Admin: 02/01/18 08:46 Dose: 80 mg Cyanocobalamin (Vitamin B12 Tab*) 500 mcg PO DAILY [facility] Last Admin: 02/01/18 16:42 Dose: 500 mcg Dextrose (D50w Syringe 50 Ml*) 12.5 gm IV PUSH .FOR FS < 60 - SS PRN PRN Reason: FS < 60 Diltiazem HCl (Cardizem Tab*) 30 mg PO BID [facility] Last Admin: 02/01/18 20:15 Dose: 30 mg Fluconazole (Diflucan 100 Mg Tab*) 100 mg PO DAILY [facility] Last Admin: 02/01/18 08:45 Dose: 100 mg Furosemide (Lasix Iv*) 40 mg IV DAILY [facility] Last Admin: 02/01/18 08:41 Dose: 40 mg Heparin Sodium (Porcine) (Heparin Vial(*)) 5,000 units SUBCUT Q12HR [facility] Last Admin: 02/01/18 20:16 Dose: 5,000 units Insulin Human Lispro (Humalog*) 0 units SUBCUT AC [facility]; Protocol Last Admin: 02/01/18 16:58 Dose: 2 units Lactulose (Lactulose*) 30 ml PO QID [facility] Last Admin: 02/01/18 20:15 Dose: 30 ml Metoprolol Succinate (Toprol Xl Tab*) 25 mg PO DAILY [facility] Last Admin: 02/01/18 08:44 Dose: 25 mg Mometasone Furoate/Formoterol Fumar (Dulera 200/5 Mdi*) 2 puff INH BID [facility]; Protocol Last Admin: 02/02/18 07:36 Dose: 2 puff Nitroglycerin (Nitroglycerin Tab 0.4 Mg*) 0.4 mg SL Q5M PRN PRN Reason: ANGINA Omeprazole (Prilosec Cap*) 20 mg PO DAILY@0600 [facility] Last Admin: 02/02/18 07:14 Dose: 20 mg Thiamine HCl (Vitamin B-1 Tab*) 100 mg PO DAILY [facility] Last Admin: 02/01/18 16:42 Dose: 100 mg Zinc Sulfate (Zinc-220 Cap*) 220 mg PO DAILY [facility] Last Admin: 02/01/18 08:47 Dose: 220 mg Vital Signs - 8 hr 02/02/18 02/02/18 04:41 07:37 Temperature 98.5 F Pulse Rate 100 82 Respiratory 24 18 Rate Blood Pressure 138/72 (mmHg) O2 Sat by Pulse 93 94 Oximetry Oxygen Devices in Use Now: None Appearance: alert, comfortable, nontoxic. he is oriented to person and place but not to time and does not recall why he is here. Eyes: No Scleral Icterus Ears/Nose/Mouth/Throat: NL Teeth, Lips, Gums Neck: NL Appearance and Movements; NL JVP Respiratory: Symmetrical Chest Expansion and Respiratory Effort, Clear to Auscultation Cardiovascular: RRR Abdominal: - - distended but no fluid wave Lymphatic: No Cervical Adenopathy Extremities: - - 2+ pitting edema b/l Neurological: - - no asterixis, fine intention tremor Result Diagrams: 02/02/18 07:11 02/02/18 07:11 Additional Lab and Data: Lab Results 01/26/18 01/26/18 Range/Units 17:42 17:48 WBC 9.0 (3.5-10.8) 10^3/ul RBC 5.34 (4.00-5.40) 10^6/ul Hgb 11.6 L (14.0-18.0) g/dl Hct 38 L (42-52) % MCV 72 L (80-94) fL MCH 22 L (27-31) pg MCHC 30 L (31-36) g/dl RDW 18 H (10.5-15) % Plt Count 237 (150-450) 10^3/ul MPV 9.1 (7.4-10.4) fL Neut % (Auto) 82.5 % Lymph % (Auto) 10.8 % [place] % (Auto) 5.7 % Eos % (Auto) 0.3 % Baso % (Auto) 0.7 % Absolute Neuts (auto) 7.4 (1.5-7.7) 10^3/ul Absolute Lymphs (auto) 1.0 (1.0-4.8) 10^3/ul Absolute Monos (auto) 0.5 (0-0.8) 10^3/ul Absolute Eos (auto) 0 (0-0.6) 10^3/ul Absolute Basos (auto) 0.1 (0-0.2) 10^3/ul Absolute Nucleated RBC 0 10^3/ul Nucleated RBC % 0.1 POC Glucose (mg/dL) 31 L* (70-100) mg/dL Microbiology and Other Data: Microbiology 01/28/18 15:35 Gram Stain - Preliminary Body Fluid - Abdominal 01/26/18 20:25 Urine Culture - Final Urine Kavya Albicans EKG Data: ekg paced rhythm Assess/Plan/Problems-Billing Assessment: this is a 57 yr old wm with history of liver dysfunction and ascites (h/o etoh abuse) who presented to er on 01/26 with intractable n /v abd pain for one week. pt was found hypotensive and hypoglycemic when arrived to er with sbp 90 f /s 30. ct of abd showed loculated ascites and hyperammonemia and renetta on ckd - Patient Problems (1) Encephalopathy Current Visit: Yes Status: Acute Code(s): G93.40 - ENCEPHALOPATHY, UNSPECIFIED SNOMED Code(s): 52357263 Comment: Likely related to decompensated liver failure and hyperammonemia Improving per nursing reports Appreciate Dr. Ch's consult which included the following in the differential: "SIBO given ALEXA and Vid D deficiency (awaiting zinc level) to make sure that OTC is not affected that may lead to hyperammonemiaimportant given peritoneal carcinomatosis can lead to SIBO, especially in the setting of loculated ascites that has lymphocytic predominance in differentials on diagnostic and therapeutic paracentesis" Quantiferon gold is pending Vitamin B12 in the lower limit of normalMMA is pending CPK WNL Cytology from fluid pending-->paraneoplastic process possible fluconazole added yesterday for yeast in urine with recognition that this usually would not need to be treated, but because he was still conufsed even when ammonia had normalized (2) A-fib Current Visit: Yes Status: Acute Code(s): I48.91 - UNSPECIFIED ATRIAL FIBRILLATION SNOMED Code(s): 25848120 Comment: xarelto currently on hold (3) AICD (automatic cardioverter/defibrillator) present Current Visit: Yes Status: Acute Code(s): Z95.810 - PRESENCE OF AUTOMATIC ( IMPLANTABLE) CARDIAC DEFIBRILLATOR SNOMED Code(s): 209262628 Comment: noted, placed for primary prevention in setting of ef 30%, which is now improved (4) Acute on chronic renal failure Current Visit: Yes Status: Acute Code(s): N17.9 - ACUTE KIDNEY FAILURE, UNSPECIFIED; N18.9 - CHRONIC KIDNEY DISEASE, UNSPECIFIED SNOMED Code(s): 787050534 Comment: likely related to decompensated liver failure, now improved (5) Ascites Current Visit: Yes Status: Acute Code(s): R18.8 - OTHER ASCITES SNOMED Code(s): 812159819 Comment: cell count ruled out SBP Given lymphocytic predominance, suspicion for possible carcinomatous process is more ominous given his significant tobacco abuse history but quit 15 years ago (6) CAD (coronary artery disease) Current Visit: Yes Status: Acute Code(s): I25.10 - ATHSCL HEART DISEASE OF [place] CORONARY ARTERY W/O ANG PCTRS SNOMED Code(s): 47116097 Comment: stable continue outpt meds (7) Hyperammonemia Current Visit: Yes Status: Acute Code(s): E72.20 - DISORDER OF UREA CYCLE METABOLISM, UNSPECIFIED SNOMED Code(s): 3764563 Comment: See above in encephalopathy (8) UTI (urinary tract infection) Current Visit: No Status: Acute
[2018-02-02] MEDS: Insulin LISPRO* 1 UNITS UNIT SUBCUT SCH ×3 (10:29→17:29)
[2018-02-02] MEDS: Heparin VIAL(*) 5000 UNITS/ML VIAL (FIVE THOUSAND) SUBCUT SCH ×2 (10:29→21:49)
[2018-02-02] MEDS: Metoprolol Succinate XL TAB* 25 MG PO SCH (10:30)
[2018-02-02] MEDS: Cyanocobalamin TAB* 500 MCG PO SCH (10:30)
[2018-02-02] MEDS: Thiamine TAB* 100 MG TAB PO SCH (10:30)
[2018-02-02] MEDS: Atorvastatin* 80 MG TAB PO SCH (10:30)
[2018-02-02] MEDS: Furosemide IV* 10 MG/ML VIAL (40 MG) IV SCH (10:30)
[2018-02-02] MEDS: Aspirin EC TAB* 81 MG TAB.EC PO SCH (10:30)
[2018-02-02] MEDS: Diltiazem TAB* 30 MG PO SCH ×2 (10:30→21:49)
[2018-02-02] MEDS: Fluconazole 100 MG TAB* TAB PO SCH (10:30)
[2018-02-02] MEDS: Zinc Sulfate CAP* 220 MG PO SCH (10:32)
[2018-02-02 10:37] LABS: TSH (Thyroid Stimulating Horm) 2.23 mcIU/mL (0.34-5.60)
[2018-02-02 12:54] LABS: TB Mitogen minus Nil Result 6.98 IU/mL; TB Nil Result 0.02 IU/mL; TB1 Ag minus Nil Result 0.01 IU/mL
[2018-02-02 17:12] LABS: Kappa Free Light Chain 5.51 mg/dL
[2018-02-02 18:21] LABS: Zinc 0.57 mcg/mL (0.66-1.10)
[2018-02-02] MEDS ORDERED: Potassium Chlor TAB* 20 MEQ TAB.ER PO ONE (20:20)
[2018-02-02 22:49] LABS: Magnesium 1.6 mg/dL (1.9-2.7)
[2018-02-03] MEDS: Omeprazole CAP* 20 MG PO SCH ×2 (06:18→09:31)
[2018-02-03] MEDS: Mometasone/Formoter 200/5 MDI INH SCH (07:28)
[2018-02-03 08:37] LABS: ABS Basophils 0.1 10^3/ul (0-0.2); ABS Eosinophils 0.1 10^3/ul (0-0.6); ABS Lymphocytes 0.8 10^3/ul (1.0-4.8); ABS Neutrophils 8.1 10^3/ul (1.5-7.7); ABS Nucleated RBC 0 10^3/ul; Eosinophil % 1.2 %; Hematocrit 30 % (42-52); Hemoglobin 9.5 g/dl (14.0-18.0); Lymphocyte % 8.1 %; Mean Corpuscular HGB Conc 32 g/dl (31-36); Mean Corpuscular Hemoglobin 22 pg (27-31); Mean Corpuscular Volume 70 fL (80-94); Mean Platelet Volume 7.7 fL (7.4-10.4); Nucleated Red Blood Cells % 0; Platelet Count 187 10^3/ul (150-450); Red Blood Count 4.33 10^6/ul (4.00-5.40); Red Cell Distribution Width 17 % (10.5-15); White Blood Count 10.1 10^3/ul (3.5-10.8)
[2018-02-03 08:42] LABS: INR 1.44 (0.77-1.02)
[2018-02-03 08:56] LABS: Albumin/Globulin Ratio 1.1 (1-3); BUN/Creatinine Ratio 19.7 (8-20); Calcium 8.8 mg/dL (8.6-10.3); EGFR Non-African American 55.9 (>60); Globulin 2.8 g/dL (2-4); Indirect Bilirubin 0.6 mg/dL (0.3-1.0); Magnesium 1.2 mg/dL (1.9-2.7); Potassium 3.4 mmol/L (3.5-5.0); Total Bilirubin 0.8 mg/dL (0.2-1.0); Total Protein 5.8 g/dL (6.4-8.9)
[2018-02-03] MEDS: Diltiazem TAB* 30 MG PO SCH (09:30)
[2018-02-03] MEDS: Fluconazole 100 MG TAB* TAB PO SCH (09:30)
[2018-02-03] MEDS: Thiamine TAB* 100 MG TAB PO SCH (09:30)
[2018-02-03] MEDS: Cyanocobalamin TAB* 500 MCG PO SCH (09:31)
[2018-02-03] MEDS: Atorvastatin* 80 MG TAB PO SCH (09:31)
[2018-02-03] MEDS: Aspirin EC TAB* 81 MG TAB.EC PO SCH (09:31)
[2018-02-03] MEDS: Metoprolol Succinate XL TAB* 25 MG PO SCH (09:31)
[2018-02-03] MEDS: Zinc Sulfate CAP* 220 MG PO SCH (09:32)
[2018-02-03] MEDS: Heparin VIAL(*) 5000 UNITS/ML VIAL (FIVE THOUSAND) SUBCUT SCH (09:32)
[2018-02-03] MEDS: Insulin LISPRO* 1 UNITS UNIT SUBCUT SCH ×2 (09:32→13:11)
[2018-02-03] MEDS: Furosemide IV* 10 MG/ML VIAL (40 MG) IV SCH (09:33)
[2018-02-03] MEDS ORDERED: Potassium Chlor TAB* 20 MEQ TAB.ER PO ONE (09:38)
[2018-02-03] MEDS ORDERED: Magnesium Oxide TAB* 400 MG PO SCH (10:00)
[2018-02-03 10:25] LABS: Albumin 2.8 g/dL (3.4-4.7); Albumin/Globulin Ratio 0.89; Gamma Globulin 1.1 g/dL (0.6-1.6); Total Protein(PEP) 5.9 g/dL (6.3 - 7.9)
[2018-02-03 10:25] LABS: Albumin 40 %; Albumin/Globulin Ratio 0.66 %; Gamma Globulin 28 %; Total Protein(PEP) Urine 63 mg/dL
[2018-02-03 12:05] VITALS: BP 156/81
--- NOTE | 2018-02-05 23:59 | DS ---
CC: Dr. Ch; Dr. Kelley; Dr. Hill * DISCHARGE SUMMARY: DATE OF ADMISSION: 01/26/18 DATE OF DISCHARGE: 02/03/18 PRINCIPAL DISCHARGE DIAGNOSES: 1. Ascites. 2. Hyperammonemia. 3. Acute kidney injury. SECONDARY DISCHARGE DIAGNOSES: 1. Chronic kidney disease. 2. Chronic diastolic heart failure. 3. Coronary artery disease with PCI. 4. Type 2 diabetes. 5. Anemia. 6. Atrial fibrillation, on anticoagulation. 7. Chronic obstructive pulmonary disease. 8. Obstructive sleep apnea. HOSPITAL COURSE BY PROBLEM: 1. Mr. Pratt was admitted with nausea and vomiting and was found to have ascites on exam. The etiology has been unclear as he has no known liver disease and no radiographic findings of cirrhosis. He is also noted to be confused and have elevated ammonia levels. The differential for this has been quite broad and the workup is pending at the time of discharge. An extensive workup was sent by Dr. Ch, including testing for small intestinal bacterial overgrowth, zinc deficiency. Fortunately, the cytology from the ascitic fluid has come back and is negative. A QuantiFERON Gold is also negative. A hepatitis panel is pending at the time of discharge. He underwent a therapeutic paracentesis and resolved quickly. He also responded well to diuretics. He needs followup with Dr. Ch to follow up on the testing that she ordered. 2. Hyperammonemia. Again, the etiology has been somewhat unclear since he has no known liver disease and these results are pending. He responded well to lactulose and at the time of discharge has returned to his baseline of oriented x2 and he always has trouble with the time. 3. Chronic diastolic heart failure. His ascites certainly could be related to passive congestion and this remains on the differential. He was continued on Lasix. 4. A hepatitis panel is pending at the time of discharge. 5. Atrial fibrillation. He was continued on metoprolol, diltiazem and Xarelto. 6. Coronary artery disease. He was continued on aspirin, statin, and beta- krysta. 7. Hypokalemia. He was started on potassium supplementation. This is likely related to the lactulose and diuresis. 8. Disposition. Mr. Pratt was evaluated by Physical Therapy who recommended home PT. He is going home with [facility] support and his girlfriend. His brother is in agreement with this plan. 9. He is instructed to return to the emergency department should his ascites worsen, should he become short of breath, develop chest pain or worsening confusion. TIME SPENT: 50 minutes were spent on this discharge. [id number]/[facility] #: [id number] MTDD
== END 2018-02-03 18:18 | disposition home health service (06) | DRG 948 ==
LOC: ED 17:24 → MEDTELE 21:33
PROVIDERS: ADMIT Internal Medicine; ATTEND Internal Medicine
PROC: 0W9G3ZZ Drainage of Peritoneal Cavity, Percutaneous Approach (ICD-10-PCS; principal; 2018-01-28)
DX: R18.8 Other ascites (principal); N17.9 Acute kidney failure, unspecified; I13.0 Hypertensive heart and chronic kidney disease with heart failure and stage 1 through stage 4 chronic kidney disease, or unspecified chronic kidney disease; N39.0 Urinary tract infection, site not specified; G93.40 Encephalopathy, unspecified; I50.32 Chronic diastolic (congestive) heart failure; E72.20 Disorder of urea cycle metabolism, unspecified; I48.91 Unspecified atrial fibrillation; K42.9 Umbilical hernia without obstruction or gangrene; R20.0 Anesthesia of skin; E11.649 Type 2 diabetes mellitus with hypoglycemia without coma; K57.30 Diverticulosis of large intestine without perforation or abscess without bleeding; E87.5 Hyperkalemia; R33.9 Retention of urine, unspecified; I95.9 Hypotension, unspecified; N18.9 Chronic kidney disease, unspecified; E55.9 Vitamin D deficiency, unspecified; E60 Dietary zinc deficiency; G47.33 Obstructive sleep apnea (adult) (pediatric); E11.22 Type 2 diabetes mellitus with diabetic chronic kidney disease; E86.0 Dehydration; E78.5 Hyperlipidemia, unspecified; I25.10 Atherosclerotic heart disease of native coronary artery without angina pectoris; E78.00 Pure hypercholesterolemia, unspecified; J44.9 Chronic obstructive pulmonary disease, unspecified; E61.1 Iron deficiency; K21.9 Gastro-esophageal reflux disease without esophagitis; M15.9 Polyosteoarthritis, unspecified; F32.9 Major depressive disorder, single episode, unspecified; Z82.49 Family history of ischemic heart disease and other diseases of the circulatory system; Z87.891 Personal history of nicotine dependence; Z87.442 Personal history of urinary calculi; Z91.013 Allergy to seafood; Z98.61 Coronary angioplasty status; Z95.810 Presence of automatic (implantable) cardiac defibrillator; Z72.89 Other problems related to lifestyle; Z83.3 Family history of diabetes mellitus; Z91.19 Patient's noncompliance with other medical treatment and regimen; Z91.041 Radiographic dye allergy status
CPT/HCPCS: 36415; 70450; 71045; 74176; 76770; 80048; 80053; 80061; 80076; 80320; 81003; 81015; 82042; 82043; 82140; 82306; 82550; 82565; 82570; 82607; 83036; 83540; 83550; 83605; 83690; 83735; 83880; 83883; 83986; 84100; 84155; 84156; 84157; 84165; 84166; 84439; 84443; 84484; 84520; 84540; 84630; 85025; 85060; 85610; 85730; 86038; 86140; 86235; 86480; 86850; 86900; 86901; 87040; 87086; 87106; 87205; 88112; 89051; 93005; 93970; 94640; 99284; A9270-GY; G0480; G8978-GP-CI; G8978-GP-CJ; G8979-GP-CI; G8980-GP-CI; J1644; J1940; J2543; J3475; Q9967

== ENCOUNTER 2018-02-04 14:20 | Observation (INO) | payer MEDICARE, MEDICAID ==
--- NOTE | 2018-02-04 14:36 | ED ---
Medical Screening - HPI Summary HPI Summary: This pt is a 57 y/o male presenting to [facility] via EMS for generalized weakness and confusion. Pt was recently admitted to [facility] on 01/26/18 for pneumonia, acute renal failure, ascites and discharged home yesterday. EMS reports pt was found at home today by home health aide covered in feces. Per EMS pt states he could not get up from the floor after lying down because he "got cold." Pt denies any pain or complaints. Denies fever, chills, chest pain, SOB, abd pain, joint pain. Pt is able to ambulate at baseline without assistance. Pt lives at home alone. He states he has a girlfriend who goes to see him. He is unable to state the year and current president (states "Jo"). Denies tobacco and drug use. HPI IS LIMITED DUE TO LEVEL 5 CAVEAT - pt is confused - History of Current Complaint Stated Complaint: GENERAL WEAKNESS Time Seen by Provider: 02/04/18 14:23 Onset/Duration: Started Hours Ago, Atraumatic, Still Present Severity: moderate Associated Signs and Symptoms: Negative - Pt denies any pain or complaints PMH/Surg Hx/FS Hx/Imm Hx Endocrine/Hematology History: Reports: Hx Diabetes Denies: Hx Anticoagulant Therapy, Hx Blood Disorders, Hx Blood Transfusions, Hx Bone Marrow Disease, Hx Systemic Lupus Erythematosus, Hx Sickle Cell Disease , Hx Thyroid Disease, Hx Anemia, Hx Unexplained Bleeding, Other Endocrine/ Hematological Disorders Cardiovascular History: Reports: Hx Angina, Hx Angioplasty, Hx Atrial Fibrillation, Hx Auto Implanted Cardiovert Defib, Hx Congestive Heart Failure, Hx Coronary Artery Disease, Hx Hypercholesterolemia, Hx Hypertension, Hx Pacemaker/ICD - 2008 Denies: Hx Aneurysm, Hx Cardiac Arrest, Hx Cardiomegaly, Hx Congenital Heart Disease, Hx Deep Vein Thrombosis, Hx Embolism, Hx Hypotension, Hx Myocardial Infarction, Hx Peripheral Vascular Disease, Hx Rheumatic Fever, Hx Syncope, Hx Valvular Heart Disease, Other Cardiovascular Problems/Disorders Respiratory History: Reports: Hx 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, Hx Chronic Obstructive Pulmonary Disease (COPD), Hx Sleep Apnea Denies: Hx Chronic Bronchitis, Hx Cystic Fibrosis, Hx Lung Cancer, Hx Pleural Effusion, Hx Pneumonia, Hx Pulmonary Edema, Hx Pulmonary Embolism, Hx Seasonal Allergies, Other Respiratory Problems/Disorders GI History: Reports: Hx Gastroesophageal Reflux Disease Denies: Hx Cirrhosis, Hx Crohn's Disease, Hx Diverticulosis, Hx Gall Bladder Disease, Hx Gastrointestinal Bleed, Hx Hiatal Hernia, Hx Irritable Bowel, Hx Jaundice, Hx Obstructive Bowel, Hx Ileostomy, Hx Pyloric Stenosis, Hx Ulcer, Other GI Disorders History: Reports: Hx Kidney Stones - LEFT Denies: Hx Acute Renal Failure, Hx Benign Prostatic Hyperplasia, Hx Chronic Renal Failure, Hx Dialysis, Hx Kidney Infection, Hx Renal Disease, Other Problems/Disorders Musculoskeletal History: Reports: Hx Arthritis - BILATERAL HANDS AND LEGS Denies: Hx Back Problems, Hx Bursitis, Hx Congenital Bone Abnormalities, Hx Fibromyalgia, Hx Gout, Hx Orthopedic Injury, Hx Osteoporosis, Hx Scoliosis, Hx Tendonitis, Other Musculoskeletal History Sensory History: Denies: Hx Cataracts, Hx Contacts or Glasses, Hx Eye Injury, Hx Glaucoma, Hx Deafness, Hx Hearing Aid, Hx Hearing Problem Opthamlomology History: Denies: Hx Cataracts, Hx Contacts or Glasses, Hx Eye Injury, Hx Glaucoma Neurological History: Denies: Hx Dementia, Hx Headaches, Hx Migraine, Hx Seizures, Hx Transient Ischemic Attacks (TIA), Other Neuro Impairments/Disorders Psychiatric History: Reports: Hx Depression Denies: Hx Anxiety, Hx Attention Deficit Hyperactivity Disorder, Hx Eating Disorder, Hx Panic Disorder, Hx Post Traumatic Stress Disorder, Hx Inpatient Treatment, Hx Community Mental Health Tx, Hx Schizophrenia, Hx Bipolar Disorder , Hx Suicide Attempt, Hx of Violent Episodes Against Others, Hx Substance Abuse , Other Psychiatric Issues/Disorders - Surgical History Surgery Procedure, Year, and Place: PACEMAKER [facility] 2008. APPENDECTOMY [facility]. MULTIPLE CYSTO, L STENT, L ESWL PROCEDURES [facility]. CARDIAC CATH X3 2009, 2016 Hx Anesthesia Reactions: No - Immunization History Date of Tetanus Vaccine: Unknown Infectious Disease History: No Infectious Disease History: Denies: Hx Clostridium Difficile, Hx Hepatitis, Hx Human Immunodeficiency Virus (HIV), Hx of Known/Suspected MRSA, Hx Shingles, Hx Tuberculosis, Traveled Outside the [place] in Last 30 Days - Family History Known Family History: Positive: Cardiac Disease, Hypertension - Social History Alcohol Use: None Alcohol Amount: 2-3 PER DAY Substance Use Type: Reports: None Smoking Status (MU): Former Smoker Type: Cigarettes Amount Used/How Often: 2 PACKS A DAY Length of Time of Smoking/Using Tobacco: about 20 years,not sure Have You Smoked in the Last Year: No Review of Systems - ROS Summary Review of Systems Summary: ROS IS LIMITED DUE TO LEVEL 5 CAVEAT - pt is confused Negative: Fever, Chills Negative: Chest Pain Negative: Shortness Of Breath Negative: Abdominal Pain Negative: Arthralgia Neurological: Other - POSITIVE: confused All Other Systems Reviewed And Are Negative: No Physical Exam - Summary Physical Exam Summary: Appearance: Well appearing, no pain distress Skin: warm, dry, reflects adequate perfusion Head/face: normal Eyes: EOMI, ANUEL ENT: normal Neck: supple, nontender Respiratory: CTA, breath sounds present Cardiovascular: RRR, pulses symmetrical Abdomen: nontender, soft Musculoskeletal: pulse present b/l Neuro: Alert but confused Triage Information Reviewed: Yes Vital Signs On Initial Exam: Initial Vitals Temp Pulse Resp BP Pulse Ox 99.1 F 100 15 151/95 97 02/04/18 14:26 02/04/18 14:26 02/04/18 14:26 02/04/18 14:26 02/04/18 14:26 Vital Signs Reviewed: Yes Completion Of Physical Exam Limited Due To: Level 5 - pt is confused Diagnostics - Vital Signs Vital Signs Temp Pulse Resp BP Pulse Ox 02/04/18 14:26 99.1 F 100 15 151/95 97 - Laboratory Result Diagrams: 02/04/18 14:48 02/04/18 14:48 Lab Statement: Any lab studies that have been ordered have been reviewed, and results considered in the medical decision making process. Course/Dx - Course Assessment/Plan: Pt is a 57 y/o male who presents via EMS for generalized weakness and confusion. Pt was recently admitted to [facility] on 01/26/18 and discharged home yesterday. EMS reports pt was found at home today covered in feces and stated he could not get up from the floor. Pt denies any pain or complaints. Blood work obtained. Urinalysis was ordered. In the ED course the pt was given potassium chloride PO for potassium of 2.8. I discussed pt care with Dr. Jacobs, hospitalist, who accepted the pt for admission. - Diagnoses Provider Diagnoses: Altered mental status, Hypokalemia, Dehydration - Physician Notifications Discussed Care Of Patient With: Marilee Jacobs - Hospitalist Time Discussed With Above Provider: 15:24 Instructed by Provider To: Admit As Inpatient Discharge - Sign-Out/Discharge Documenting (check all that apply): Patient Departure - Admit to [facility] - Discharge Plan Condition: Stable Disposition: ADMITTED TO [facility] Referrals: Erasmo Hill MD [Primary Care Provider] - - Billing Disposition and Condition Condition: STABLE Disposition: Admitted to [facility] - Attestation Statements Document Initiated by Beni: Yes Documenting Scribe: Amita Aguilera Provider For Whom Beni is Documenting (Include Credential): Joshua Crowder MD Scribe Attestation: Amita Griffiths, scribed for Joshua Crowder MD on 02/04/18 at 1546. Scribe Documentation Reviewed: Yes Provider Attestation: The documentation as recorded by the Amita dove accurately reflects the service I personally performed and the decisions made by me, Joshua Crowder MD Status of Scribe Document: Viewed
[2018-02-04 15:12] LABS: ABS Basophils 0.1 10^3/ul (0-0.2); ABS Eosinophils 0.3 10^3/ul (0-0.6); ABS Lymphocytes 0.8 10^3/ul (1.0-4.8); ABS Neutrophils 6.9 10^3/ul (1.5-7.7); ABS Nucleated RBC 0 10^3/ul; Hematocrit 32 % (42-52); Hemoglobin 9.9 g/dl (14.0-18.0); Lymphocyte % 9.3 %; Mean Corpuscular HGB Conc 31 g/dl (31-36); Mean Corpuscular Hemoglobin 22 pg (27-31); Mean Corpuscular Volume 70 fL (80-94); Mean Platelet Volume 8.4 fL (7.4-10.4); Nucleated Red Blood Cells % 0; Platelet Count 193 10^3/ul (150-450); Red Blood Count 4.58 10^6/ul (4.00-5.40); Red Cell Distribution Width 18 % (10.5-15); White Blood Count 9.1 10^3/ul (3.5-10.8)
[2018-02-04 15:19] LABS: INR 1.49 (0.77-1.02)
[2018-02-04 15:20] LABS: Albumin 3.5 g/dL (3.2-5.2); BUN/Creatinine Ratio 22.1 (8-20); Globulin 3.5 g/dL (2-4); Potassium 2.8 mmol/L (3.5-5.0); Total Bilirubin 0.8 mg/dL (0.2-1.0)
[2018-02-04] MEDS ORDERED: Potassium Chlor TAB* 20 MEQ TAB.ER PO ONE (15:24)
[2018-02-04 16:23] LABS: Urine Appearance Cloudy; Urine Bacteria 1+ (Absent); Urine Bilirubin Negative (Negative); Urine Blood 2+ (Negative); Urine Color Yellow; Urine Glucose Negative (Negative); Urine Ketones Negative (Negative); Urine Nitrite Negative (Negative); Urine Protein 2+(100 mg/dL) (Negative); Urine Red Blood Cell 2+(6-10/hpf) (Absent); Urine Specific Gravity 1.014 (1.010-1.030); Urine Urobilinogen Negative (Negative); Urine White Blood Cell 1+(6-10/hpf) (Absent)
[2018-02-04] MEDS ORDERED: Docusate CAP* 100 MG PO PRN (16:52)
[2018-02-04] MEDS ORDERED: Al Hydrox/Mg Hydrox/Simet LIQ* 30 ML UDC PO PRN (16:52)
[2018-02-04] MEDS ORDERED: Albuterol HFA INHALER* 8 gm MDI INH PRN (16:52)
[2018-02-04 17:37] LABS: Magnesium 1.2 mg/dL (1.9-2.7)
--- NOTE | 2018-02-04 19:00 | HP ---
CC: Dr. Hill * HISTORY AND PHYSICAL: DATE OF ADMISSION: 02/04/18 TIME OF ADMISSION: 5 p.m. CHIEF COMPLAINT: Sent in by [facility]. HISTORY OF PRESENT ILLNESS: This is a 57-year-old man, who is well known to our service, who has an extensive past medical history and was just discharged yesterday to home. Last week, he was admitted for ascites of which the etiology has been unclear and there is an extensive serologic panel pending to work this up. Yesterday on the day of discharge, he was at his baseline from a mental status standpoint and was euvolemic and was reevaluated by Physical Therapy and recommended for home PT. Acute rehab was offered to him; however, he and his family wished for him to go home with [facility] and support from his brother and girlfriend. Today, when [facility] arrived, he was reportedly, per their notes, found in soiled sheets on his recliner. The patient says he needed to go to the bathroom and simply could not get to the bathroom fast enough and that his walker does not fit through the bathroom door. He feels fine and has no complaints. He does not want to be admitted to the hospital and thinks that there is no reason for him to stay. He denies chest pain, shortness of breath, nausea, vomiting, constipation. He has had some loose stool since starting lactulose, but no abdominal pain. He does not think his belly is more distended. He has no headache. His girlfriend is not here with him. He says she has no way to get to the hospital, but he feels like he has good support at home despite [facility]' recommendations. PAST MEDICAL HISTORY: 1. Ascites of unknown origin. 2. Diastolic heart failure with history of systolic heart failure requiring a pacemaker and AICD. 3. Type 2 diabetes. 4. Chronic iron-deficiency anemia. 5. Coronary artery disease with stents. 6. Atrial fibrillation, on anticoagulation. 7. COPD. 8. ETHAN, not on CPAP. 9. Hyperlipidemia. FAMILY HISTORY: His father had hypertension, diabetes, and a stroke. His mother is still alive. SOCIAL HISTORY: He quit drinking 10 years ago. He also quit smoking 10 years ago. He lives alone, but his girlfriend stays with him or he stays with her. He has a brother and his emergency contact is his girlfriend, [place]. Her phone number is [phone]. REVIEW OF SYSTEMS: As per the HPI. Remainder of the 14-point review of systems is negative. PHYSICAL EXAMINATION GENERAL: Alert, nontoxic-appearing man, who appears older than his stated age. He is oriented to person and situation and responds to all of my questions quite appropriately. He does not know the year or the month, but says he knows it is Drew coming up, but he would need to look at the calendar. This is his baseline from his last admission. VITAL SIGNS: Temperature 99.1, heart rate 100, respiratory rate 15, pulse ox 97 % on room air, blood pressure 151/95. HEENT: Pupils equal, round, reactive to light. No scleral icterus. Oral mucosa is moist. NECK: No JVP. No adenopathy. LUNGS: Clear bilaterally. CHEST: He is in a regular rate and rhythm with no murmurs. ABDOMEN: Soft, distended with a positive fluid wave. His liver is nonpalpable. He has no guarding or rebound. EXTREMITIES: 1+ pitting edema to his knees. No rashes or ulcers. He does have a healed scar on his left martines. NEUROLOGIC: Strength is 5/5 in all extremities. His sensation is grossly intact. His coordination is intact. His object naming is intact. He follows simple and complex commands and his recall is accurate. LABORATORY DATA: White blood cells 9.1, hemoglobin 9.9, platelets 193. INR 1.49. Sodium 138, potassium 2.8, bicarb 29, creatinine 1.36, glucose 164. Ammonia 37. ASSESSMENT AND PLAN: This is a 57-year-old man with a complicated medical history including heart failure, ascites, chronic kidney disease, atrial fibrillation, who was recently on our service and discharged to home yesterday, presenting back to the emergency department after [facility] found him unable to care for himself at home. 1. Failure to thrive. This is unsurprising given the assistance that he needed in the hospital during his admission over the past week; however, he and his family declined inpatient rehab. I do not think he has had a medical decompensation, but that he is unable to care for himself with the level of support that he currently has at home between his girlfriend and his family. Of note, his girlfriend is disabled and his family members work. He does not have any evidence of metabolic derangements other than the hypokalemia, which could have contributed to some weakness, but I doubt it is the cause of his presentation today. He did have hyperammonemia on last admission; however, his ammonia is now normal and he has no asterixis or other evidence of encephalopathy. His mental status is at his baseline. 2. Ascites. This is a recent diagnosis and the etiology is unclear. There is an extensive serologic panel pending to work up the cause of his ascites. His things that have returned so far include a QuantiFERON Gold test, which is negative. His antinuclear antibody is unremarkable. His kappa/lambda ratio is unremarkable. His Scl-70 antibody is negative. His kappa light chain is elevated and his lambda light chain is elevated, but the significance of these is unclear. His zinc level is slightly low. I do think he has some degree of ascites at this time, but it is not tense. He may benefit from another therapeutic paracentesis and continued diuresis. 3. Hypokalemia, likely related to ongoing lactulose and diuretic use. He has received potassium in the ED and I will continue this supplementation. Of note , I did discharge him on potassium yesterday, but he does not have it in his bag of medications with him, which I reviewed. 4. Hypomagnesemia. Again, he was quite hypomagnesemic yesterday, but I discharged him on p.o. magnesium and again I note that he does not have p.o. magnesium in his bag of medications here today, so I am concerning that hypomagnesemia may be contributing to his weakness today. 5. Chronic kidney disease. His renal function is actually below baseline at this time. 6. Chronic diastolic heart failure. He does have some ascites, but I do not note JVP. He may benefit from ongoing diuresis. I am continuing his home Lasix dose. 7. Atrial fibrillation. He is in a regular rhythm and rate right now. I am continuing his diltiazem and metoprolol. 8. Iron-deficiency anemia. His hemoglobin is at baseline. 9. Disposition: Mr. Pratt will be admitted to observation in order to get him placement as he is unsafe at home. I am ordering physical therapy to reevaluate him. [id number]/CPS #: [id number] ALBINO
[2018-02-04] MEDS: Magnesium Oxide TAB* 400 MG PO SCH (20:51)
[2018-02-04] MEDS: Diltiazem TAB* 30 MG PO SCH (20:51)
[2018-02-04] MEDS: Gabapentin CAP(*) 300 MG PO SCH (20:51)
[2018-02-04] MEDS ORDERED: Heparin VIAL(*) 5000 UNITS/ML VIAL (FIVE THOUSAND) SUBCUT SCH (22:00)
[2018-02-05 07:06] LABS: BUN/Creatinine Ratio 22.8 (8-20); Calcium 8.5 mg/dL (8.6-10.3); Potassium 3.3 mmol/L (3.5-5.0)
[2018-02-05 07:29] LABS: Magnesium 1.4 mg/dL (1.9-2.7)
[2018-02-05] MEDS ORDERED: Omeprazole CAP* 20 MG PO SCH (09:00)
[2018-02-05] MEDS ORDERED: Hydrochlorothiazide TAB* 25 MG PO SCH (09:00)
[2018-02-05] MEDS ORDERED: Lisinopril TAB* 5 MG PO SCH (09:00)
[2018-02-05] MEDS ORDERED: Metoprolol Succinate XL TAB* 25 MG PO SCH (09:00)
[2018-02-05] MEDS ORDERED: Potassium Chlor TAB* 20 MEQ TAB.ER PO SCH (09:00)
[2018-02-05] MEDS ORDERED: Aspirin EC TAB* 81 MG TAB.EC PO SCH (09:00)
[2018-02-05] MEDS ORDERED: Atorvastatin* 80 MG TAB PO SCH (09:00)
[2018-02-05] MEDS ORDERED: Rivaroxaban TAB(*) 20 MG TAB PO SCH (09:00)
[2018-02-05] MEDS ORDERED: Thiamine TAB* 100 MG TAB PO SCH (09:00)
[2018-02-05] MEDS ORDERED: Zinc Sulfate CAP* 220 MG PO SCH (09:00)
[2018-02-05] MEDS ORDERED: Furosemide TAB* 20 MG PO SCH (09:00)
[2018-02-05] MEDS: Gabapentin CAP(*) 300 MG PO SCH (09:31)
[2018-02-05] MEDS: Magnesium Oxide TAB* 400 MG PO SCH (09:33)
[2018-02-05] MEDS: Diltiazem TAB* 30 MG PO SCH (09:33)
[2018-02-05] MEDS ORDERED: Potassium Chlor TAB* 20 MEQ TAB.ER PO ONE (09:39)
[2018-02-05] MEDS ORDERED: Dextrose 50% Syringe 50 ML* 25 GM/50 ML SYRINGE IV PUSH PRN (11:09)
[2018-02-05] MEDS ORDERED: Insulin LISPRO* 1 UNITS UNIT SUBCUT SCH (11:30)
[2018-02-05 12:16] VITALS: BP 132/68
--- NOTE | 2018-02-05 14:08 | DS ---
CC: Dr. Hill; Dr. Kelley; Dr. Ch DATE OF ADMISSION: 02/04/2018. DATE OF DISCHARGE: 02/05/2018. PRINCIPAL DISCHARGE DIAGNOSES: 1. Failure to thrive. 2. Hypokalemia. 3. Hypomagnesemia. SECONDARY DISCHARGE DIAGNOSES: 1. Ascites of unknown origin. 2. Diastolic heart failure. 3. Type 2 diabetes. 4. Iron deficiency anemia. 5. Atrial fibrillation, on anticoagulation. 6. Coronary artery disease with stents. 7. COPD. 8. ETHAN. 9. Hyperlipidemia. MEDICATIONS: 1. Albuterol inhaler one puff b.i.d. prn wheezing. 2. Lisinopril 2.5 mg daily. 3. Omeprazole 20 mg daily. 4. Gabapentin 300 mg b.i.d. 5. Cetirizine 10 mg daily. 6. Metoprolol Succinate 25 mg daily. 7. Atorvastatin 80 mg daily. 8. Magnesium Oxide 400 mg t.i.d. 9. Nitroglycerin 0.5 sublingual q.5 minutes prn chest pain. 10. Diltiazem 30 mg b.i.d. 11. Xarelto 20 mg daily. 12. Aspirin 81 mg daily. 13. Tylenol 1,000 mg q.12 prn pain. 14. Symbicort two puffs b.i.d. 15. Maalox 30 ml q.6 prn indigestion. 16. Docusate 100 mg b.i.d. prn constipation. 17. Furosemide 20 mg daily. 18. Ferrous Sulfate 325 mg every other day. 19. Janumet 50/1,000 one tab b.i.d. 20. Lactulose 30 ml b.i.d. 21. Potassium Chloride 20 mEq daily. 22. Thiamine 100 mg daily. 23. Zinc Sulfate 220 mg daily. 24. Spironolactone 25 mg daily. HOSPITAL COURSE BY PROBLEM: 1. Failure to thrive at home: Mr. Pratt was recently discharged from our service on 02/03/2018 at which time he wished to go home and had the support of his brother, his father, and his girlfriend. He was arranged with [facility]; however, when [facility] arrived the day following discharge, they found him in hi s chair, sitting in feces as he was unable to get to his bathroom because his walker did not fit thro ugh the door. Mr. Pratt said he felt fine. He had no complaints when he arrived and simply that hi s girlfriend was unable to help him as much as he anticipated she would be able to. Certainly it is possible that hypokalemia and hypomagnesemia contributed to his weakness in getting around his house; however, I suspect he will need more long-term assistance than he is able to get at home. 2. Hypokalemia: Likely due to recent Lactulose and diuretics. I did discharge him on p.o. potassiu m on his last discharge; however, it was not in his bag of medications that he brought to the [facility]. I am continuing p.o. potassium supplementation. 3. Hypomagnesemia: Again also likely secondary to frequent bowel movements and diuresis. I am incr easing his dose of p.o. home magnesium. 4. Ascites: His last admission was for ascites and he underwent therapeutic paracentesis and the cy tology has returned negative for this. There is still some serological testing pending that was orde red by Dr. Ch and he needs follow- up with her to follow-up on these results. I have decrease d his Lasix dose and added Spironolactone in order to treat the ascites as well as the hypokalemia. I have hopeful that the Spironolactone will help. 5. Chronic diastolic heart failure with history of reduced ejection fraction with an AICD: At the t aaliyah of discharge on February 05, he appears euvolemic. He should follow-up with Dr. Kelley. I con tinued his home medications. 6. A-fib: He is rate controlled on Metoprolol and Cardizem and he is anticoagulated with Xarelto. 7. Coronary artery disease: He is continued on aspirin, statin, and beta krysta. 8. COPD: He was continued on his home inhalers. 9. Diabetes: He was continued on Janumet. His A1c is 7.0. PHYSICAL EXAMINATION: General: Alert, pleasant man in no distress. He is oriented to situation and has good comprehension. He is oriented to person and place, but not time. This is baseline for him . Vital Signs: Temperature 97.6, heart rate 83, respiratory rate 16, pulse ox 93 percent on room ai r, blood pressure 132/68. HEENT: Pupils are 3 mm bilaterally and reactive to light. Oral mucosa is moist. Neck: No JVP, no cervical adenopathy. Chest: Regular rate and rhythm. No murmurs. PMI is nondisplaced. Lungs: Clear bilaterally. Abdomen: Soft, nontender. It is a little distended with a fluid wave, but not tense. His liver is nonpalpable. Extremities: 1+ pitting edema to his knees . No rashes or ulcers. There is a healed scar on his left martines. FOLLOW-UP NEEDED: Mr. Pratt needs a BMP and a magnesium to be drawn on Friday and followed up by e physician who will be following him at [facility] to evaluate whether his potassium and magnesium montoya pplementation is adequate. His Lactulose, Spironolactone, and Lasix dose may need to be adjusted at that time also. This is critical. He also needs to follow-up with Dr. Kelley and Dr. Ch; please arrange these follow-up within t he next month. TIME SPENT: Fifty minutes were spent on this discharge summary. [id number]/CPS #: [id number]
[2018-02-06] MEDS ORDERED: Ferrous Sulfate TAB* 325 MG PO SCH (09:00)
[2018-02-06 12:10] LABS: Hepatitis C Antibody Nonreactive (Nonreactive)
[2018-02-06] MEDS ORDERED: Rivaroxaban TAB(*) 20 MG TAB PO SCH (17:00)
[2018-02-12] MEDS ORDERED: Furosemide TAB* 20 MG PO SCH (09:00)
== END 2018-02-05 15:40 ==
LOC: ED 14:20 → MED 15:25
PROVIDERS: ADMIT Internal Medicine; ATTEND Internal Medicine
DX: R62.7 Adult failure to thrive (principal); E87.6 Hypokalemia; E83.42 Hypomagnesemia; R18.8 Other ascites; I50.30 Unspecified diastolic (congestive) heart failure; E11.9 Type 2 diabetes mellitus without complications; D50.9 Iron deficiency anemia, unspecified; I48.91 Unspecified atrial fibrillation; Z79.01 Long term (current) use of anticoagulants; J44.9 Chronic obstructive pulmonary disease, unspecified; G47.33 Obstructive sleep apnea (adult) (pediatric); E78.5 Hyperlipidemia, unspecified; Z79.82 Long term (current) use of aspirin; Z95.0 Presence of cardiac pacemaker; Z87.891 Personal history of nicotine dependence
CPT/HCPCS: 36415; 80048; 80053; 81003; 81015; 82140; 83735; 85025; 85610; 85730; 86803; 87086; 99284; A9270-GY; G0378; G8978-GP-CI; G8979-GP-CI; G8980-GP-CI; G8987-GO-CJ; G8988-GO-CI

== ENCOUNTER 2018-04-06 13:57 | Inpatient (IN) | payer MEDICARE, MEDICAID ==
[2018-04-06 14:32] LABS: ABS Basophils 0.1 10^3/ul (0-0.2); ABS Eosinophils 0.1 10^3/ul (0-0.6); ABS Lymphocytes 1.1 10^3/ul (1.0-4.8); ABS Monocytes 0.6 10^3/ul (0-0.8); ABS Neutrophils 7.2 10^3/ul (1.5-7.7); ABS Nucleated RBC 0 10^3/ul; Eosinophil % 1.1 %; Hematocrit 33 % (42-52); Hemoglobin 10.2 g/dl (14.0-18.0); Lymphocyte % 12.4 %; Mean Corpuscular HGB Conc 31 g/dl (31-36); Mean Corpuscular Hemoglobin 22 pg (27-31); Mean Corpuscular Volume 73 fL (80-94); Mean Platelet Volume 8.7 fL (7.4-10.4); Nucleated Red Blood Cells % 0; Platelet Count 204 10^3/ul (150-450); Red Blood Count 4.58 10^6/ul (4.00-5.40); Red Cell Distribution Width 18 % (10.5-15); White Blood Count 9.2 10^3/ul (3.5-10.8)
[2018-04-06 14:44] LABS: Activated Partial Thrombo Time 41.2 seconds (26.0-36.3); INR 2.07 (0.77-1.02)
[2018-04-06 14:45] LABS: Albumin 3.9 g/dL (3.2-5.2); Albumin/Globulin Ratio 1.4 (1-3); BUN/Creatinine Ratio 16.5 (8-20); Calcium 8.8 mg/dL (8.6-10.3); EGFR African American 74.8 (>60); EGFR Non-African American 61.8 (>60); Globulin 2.7 g/dL (2-4); Total Bilirubin 0.4 mg/dL (0.2-1.0); Total Protein 6.6 g/dL (6.4-8.9)
[2018-04-06 14:46] LABS: Potassium 6.2 mmol/L (3.5-5.0)
--- NOTE | 2018-04-06 15:01 | ED ---
GI/ HPI - HPI Summary HPI Summary: Pt is a 57 y/o male who presents to the ED c/o rectal bleeding. Hes had abdominal pain, bright red rectal bleeding, SOB, LE edema, and back pain for the past few days. Pt states the symptoms are worsening, and the pain is now rated a 5/10 in severity. He denies any urinary symptoms. Pt denies any hx of GI bleed. He is a former heavy drinker. Pt takes Xarelto. PMHx renal failure, liver failure, DM, CHF. - History of Current Complaint Chief Complaint: EDGIBleed Time Seen by Provider: 04/06/18 14:25 Stated Complaint: BLOOD IN STOOL/LEG SWELLING/VOMITING Hx Obtained From: Patient Onset/Duration: Started Days Ago - 2-3, Worse Since Timing: Constant Current Severity: Moderate Pain Intensity: 5 Location of Pain: Diffuse Associated Signs and Symptoms: Positive: Back Pain, Bright Red Blood w/Stool, Abdominal Pain Aggravating Factor(s): Nothing Alleviating Factor(s): Nothing - Additional Pertinent History Primary Care Physician: ALEXANDREA - Allergy/Home Medications Allergies/Adverse Reactions: Allergies Allergy/AdvReac Type Severity Reaction Status Date / Time Iodinated Contrast- Oral and Allergy Unknown Verified 04/06/18 14:00 IV Dye Reaction Details shellfish derived Allergy Unknown Verified 04/06/18 14:00 Reaction Details Home Medications: Home Medications Budesonide/Formote 80/4.5(NF) [Symbicort 80/4.5 (NF)] 2 puff INH BID 04/06/18 [ History Confirmed 04/06/18] PMH/Surg Hx/FS Hx/Imm Hx Endocrine/Hematology History: Reports: Hx Diabetes Denies: Hx Anticoagulant Therapy, Hx Blood Disorders, Hx Blood Transfusions, Hx Bone Marrow Disease, Hx Systemic Lupus Erythematosus, Hx Sickle Cell Disease , Hx Thyroid Disease, Hx Anemia, Hx Unexplained Bleeding, Other Endocrine/ Hematological Disorders Cardiovascular History: Reports: Hx Angina, Hx Angioplasty, Hx Atrial Fibrillation, Hx Auto Implanted Cardiovert Defib, Hx Congestive Heart Failure, Hx Coronary Artery Disease, Hx Hypercholesterolemia, Hx Hypertension, Hx Pacemaker/ICD - 2008 Denies: Hx Aneurysm, Hx Cardiac Arrest, Hx Cardiomegaly, Hx Congenital Heart Disease, Hx Deep Vein Thrombosis, Hx Embolism, Hx Hypotension, Hx Myocardial Infarction, Hx Peripheral Vascular Disease, Hx Rheumatic Fever, Hx Syncope, Hx Valvular Heart Disease, Other Cardiovascular Problems/Disorders Respiratory History: Reports: Hx 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, Hx Chronic Obstructive Pulmonary Disease (COPD), Hx Sleep Apnea Denies: Hx Chronic Bronchitis, Hx Cystic Fibrosis, Hx Lung Cancer, Hx Pleural Effusion, Hx Pneumonia, Hx Pulmonary Edema, Hx Pulmonary Embolism, Hx Seasonal Allergies, Other Respiratory Problems/Disorders GI History: Reports: Hx Gastroesophageal Reflux Disease Denies: Hx Cirrhosis, Hx Crohn's Disease, Hx Diverticulosis, Hx Gall Bladder Disease, Hx Gastrointestinal Bleed, Hx Hiatal Hernia, Hx Irritable Bowel, Hx Jaundice, Hx Obstructive Bowel, Hx Ileostomy, Hx Pyloric Stenosis, Hx Ulcer, Other GI Disorders History: Reports: Hx Kidney Stones - LEFT Denies: Hx Acute Renal Failure, Hx Benign Prostatic Hyperplasia, Hx Chronic Renal Failure, Hx Dialysis, Hx Kidney Infection, Hx Renal Disease, Other Problems/Disorders Musculoskeletal History: Reports: Hx Arthritis - BILATERAL HANDS AND LEGS Denies: Hx Back Problems, Hx Bursitis, Hx Congenital Bone Abnormalities, Hx Fibromyalgia, Hx Gout, Hx Orthopedic Injury, Hx Osteoporosis, Hx Scoliosis, Hx Tendonitis, Other Musculoskeletal History Sensory History: Denies: Hx Cataracts, Hx Contacts or Glasses, Hx Eye Injury, Hx Glaucoma, Hx Deafness, Hx Hearing Aid, Hx Hearing Problem Opthamlomology History: Denies: Hx Cataracts, Hx Contacts or Glasses, Hx Eye Injury, Hx Glaucoma Neurological History: Denies: Hx Dementia, Hx Headaches, Hx Migraine, Hx Seizures, Hx Transient Ischemic Attacks (TIA), Other Neuro Impairments/Disorders Psychiatric History: Reports: Hx Depression Denies: Hx Anxiety, Hx Attention Deficit Hyperactivity Disorder, Hx Eating Disorder, Hx Panic Disorder, Hx Post Traumatic Stress Disorder, Hx Inpatient Treatment, Hx Community Mental Health Tx, Hx Schizophrenia, Hx Bipolar Disorder , Hx Suicide Attempt, Hx of Violent Episodes Against Others, Hx Substance Abuse , Other Psychiatric Issues/Disorders - Surgical History Surgery Procedure, Year, and Place[place] [facility] [place] [facility] [place]ULTIPLE CYSTO, L STENT, L ESW[place] [facility] [place] X3 2009, 2016 Hx Anesthesia Reactions: No - Immunization History Date of Tetanus Vaccine: Unknown Infectious Disease History: No Infectious Disease History: Denies: Hx Clostridium Difficile, Hx Hepatitis, Hx Human Immunodeficiency Virus (HIV), Hx of Known/Suspected MRSA, Hx Shingles, Hx Tuberculosis, Traveled Outside the [place] in Last 30 Days - Family History Known Family History: Positive: Cardiac Disease, Hypertension - Social History Alcohol Use: None Alcohol Amount: 2-3 PER DAY, former use Hx Substance Use: No Substance Use Type: Reports: None Hx Tobacco Use: Yes Smoking Status (MU): Former Smoker Type: Cigarettes Amount Used/How Often: 2 PACKS A DAY Length of Time of Smoking/Using Tobacco: about 20 years,not sure Have You Smoked in the Last Year: No Review of Systems Positive: Shortness Of Breath Positive: Abdominal Pain, Other - hematochezia Genitourinary: Negative Positive: Myalgia - back, Edema - LE All Other Systems Reviewed And Are Negative: Yes Physical Exam - Summary Physical Exam Summary: Appearance: Well appearing, no pain distress Skin: warm, dry, pale, RLQ scar, left flank scar Head/face: normal Eyes: EOMI, ANUEL, conjunctiva slightly pale ENT: mucous membranes moist and slightly pale Neck: supple, non-tender Respiratory: CTA, breath sounds present Cardiovascular: irregularly irregular rhythm but rate controlled, pulses symmetrical, 3+ bilateral LE edema Abdomen: non-tender, soft, ascites Bowel Sounds: present Musculoskeletal: normal, strength/ROM intact Neuro: normal, sensory motor intact, A&Ox3 Psych: dried red blood, no external hemorrhoids, red blood exteriorly Triage Information Reviewed: Yes Vital Signs On Initial Exam: Initial Vitals Temp Pulse Resp BP Pulse Ox 98.1 F 91 19 170/98 94 04/06/18 14:00 04/06/18 14:00 04/06/18 14:00 04/06/18 14:00 04/06/18 14:00 Vital Signs Reviewed: Yes Diagnostics - Vital Signs Vital Signs Temp Pulse Resp BP Pulse Ox 04/06/18 14:00 98.1 F 91 19 170/98 94 - Laboratory Lab Results: Lab Results 04/06/18 04/06/18 04/06/18 Range/Units 14:21 14:21 14:21 WBC 9.2 (3.5-10.8) 10^3/ul RBC 4.58 (4.00-5.40) 10^6/ul Hgb 10.2 L (14.0-18.0) g/dl Hct 33 L (42-52) % MCV 73 L (80-94) fL MCH 22 L (27-31) pg MCHC 31 (31-36) g/dl RDW 18 H (10.5-15) % Plt Count 204 (150-450) 10^3/ul MPV 8.7 (7.4-10.4) fL Neut % (Auto) 78.8 % Lymph % (Auto) 12.4 % [place] % (Auto) 6.3 % Eos % (Auto) 1.1 % Baso % (Auto) 1.4 % Absolute Neuts (auto) 7.2 (1.5-7.7) 10^3/ul Absolute Lymphs (auto) 1.1 (1.0-4.8) 10^3/ul Absolute Monos (auto) 0.6 (0-0.8) 10^3/ul Absolute Eos (auto) 0.1 (0-0.6) 10^3/ul Absolute Basos (auto) 0.1 (0-0.2) 10^3/ul Absolute Nucleated RBC 0 10^3/ul Nucleated RBC % 0 INR (Anticoag Therapy) 2.07 H (0.77-1.02) APTT 41.2 H (26.0-36.3) seconds Sodium 136 (135-145) mmol/L Potassium 6.2 H* (3.5-5.0) mmol/L Chloride 108 (101-111) mmol/L Carbon Dioxide 26 (22-32) mmol/L Anion Gap 2 (2-11) mmol/L BUN 20 (6-24) mg/dL Creatinine 1.21 H (0.67-1.17) mg/dL Est GFR ( Amer) 74.8 (>60) Est GFR (Non-Af Amer) 61.8 (>60) BUN/Creatinine Ratio 16.5 (8-20) Glucose 142 H (70-100) mg/dL Calcium 8.8 (8.6-10.3) mg/dL Total Bilirubin 0.40 (0.2-1.0) mg/dL AST 16 (13-39) U/L ALT 16 (7-52) U/L Alkaline Phosphatase 119 H (34-104) U/L Ammonia (16-53) mcmol/L Total Protein 6.6 (6.4-8.9) g/dL Albumin 3.9 (3.2-5.2) g/dL Globulin 2.7 (2-4) g/dL Albumin/Globulin Ratio 1.4 (1-3) Blood Type Antibody Screen 04/06/18 04/06/18 Range/Units 14:21 14:21 WBC (3.5-10.8) 10^3/ul RBC (4.00-5.40) 10^6/ul Hgb (14.0-18.0) g/dl Hct (42-52) % MCV (80-94) fL MCH (27-31) pg MCHC (31-36) g/dl RDW (10.5-15) % Plt Count (150-450) 10^3/ul MPV (7.4-10.4) fL Neut % (Auto) % Lymph % (Auto) % [place] % (Auto) % Eos % (Auto) % Baso % (Auto) % Absolute Neuts (auto) (1.5-7.7) 10^3/ul Absolute Lymphs (auto) (1.0-4.8) 10^3/ul Absolute Monos (auto) (0-0.8) 10^3/ul Absolute Eos (auto) (0-0.6) 10^3/ul Absolute Basos (auto) (0-0.2) 10^3/ul Absolute Nucleated RBC 10^3/ul Nucleated RBC % INR (Anticoag Therapy) (0.77-1.02) APTT (26.0-36.3) seconds Sodium (135-145) mmol/L Potassium (3.5-5.0) mmol/L Chloride (101-111) mmol/L Carbon Dioxide (22-32) mmol/L Anion Gap (2-11) mmol/L BUN (6-24) mg/dL Creatinine (0.67-1.17) mg/dL Est GFR ( Amer) (>60) Est GFR (Non-Af Amer) (>60) BUN/Creatinine Ratio (8-20) Glucose (70-100) mg/dL Calcium (8.6-10.3) mg/dL Total Bilirubin (0.2-1.0) mg/dL AST (13-39) U/L ALT (7-52) U/L Alkaline Phosphatase (34-104) U/L Ammonia 61 H (16-53) mcmol/L Total Protein (6.4-8.9) g/dL Albumin (3.2-5.2) g/dL Globulin (2-4) g/dL Albumin/Globulin Ratio (1-3) Blood Type O Negative Antibody Screen Pending Result Diagrams: 04/06/18 14:21 04/06/18 15:51 Lab Statement: Any lab studies that have been ordered have been reviewed, and results considered in the medical decision making process. - EKG 14:22 Cardiac Rate: Other Rate - AFib - 87 bpm EKG Rhythm: Atrial Fibrillation ST Segment: Non-Specific Summary of EKG Findings: Low voltage, poor R wave progression, Q waves inferiorly GIGU Course/Dx - Course Course Of Treatment: Nurse's notes reviewed. Patient on oral anticoagulant that is on a reversible presents with bright red blood per rectum. No external source of bleeding found. Hemoglobin is stable at his chronic 10 range. Incidentally, his potassium is noted to be greater than 6. There is no EKG changes. Repeat potassium shows potassium 6.7. This was treated with bicarbonate, insulin, D50. Patient has been admitted to the hospitalist service. He will require continuous telemetry. GI service was contacted and will see and patient. Blood pressures have been stable if anything a little high. - Diagnoses Provider Diagnoses: Lower GI bleed, Hyperkalemia, Adverse effect of anticoagulant, Chronic renal failure - Physician Notifications Discussed Care Of Patient With: Kishor Fowler Time Discussed With Above Provider: 15:11 Instructed by Provider To: Other - Dr. Fowler says to admit the pt and he will then consult. Dr. Mckeon accepted the pt for admission at 15:12. - Critical Care Time Critical Care Time: 30-74 min - Critical care time is exclusive of separately billable procedures Discharge - Sign-Out/Discharge Documenting (check all that apply): Patient Departure - Admit Patient Received Moderate/Deep Sedation with Procedure: No - Discharge Plan Condition: Guarded Disposition: ADMITTED TO [facility] Referrals: Erasmo Hill MD [Primary Care Provider] - - Billing Disposition and Condition Condition: GUARDED Disposition: Admitted to [facility] - Attestation Statements Document Initiated by Scribe: Yes Documenting Scribe: Martha Marcial Provider For Whom Scribe is Documenting (Include Credential): Kofi Andrade MD Scribe Attestation: IMartha, scribed for Kofi Andrade MD on 04/06/18 at 1621. Scribe Documentation Reviewed: Yes Provider Attestation: The documentation as recorded by the tainaibMartha archuleta accurately reflects the service I personally performed and the decisions made by me, Kofi Andrade MD Status of Scribe Document: Viewed
[2018-04-06] MEDS ORDERED: Dextrose 50% Syringe 50 ML* 25 GM/50 ML SYRINGE IV PUSH ONE (16:20)
[2018-04-06] MEDS ORDERED: Insulin REGULAR(*) 1 UNITS UNIT IV PUSH ONE (16:20)
[2018-04-06] MEDS ORDERED: NS 0.9% 1000 ML** 1,000 ML IV ONE (16:20)
[2018-04-06] MEDS ORDERED: Sodium Bicarbonate 8.4% IV* 50 ML VIAL IV ONE (16:20)
[2018-04-06] MEDS ORDERED: Al Hydrox/Mg Hydrox/Simet LIQ* 30 ML UDC PO PRN (17:12)
[2018-04-06] MEDS ORDERED: Albuterol HFA INHALER* 8 gm MDI INH PRN (17:12)
[2018-04-06] MEDS ORDERED: Acetaminophen TAB* 325 MG PO PRN (17:16)
[2018-04-06 18:16] LABS: Hematocrit 33 % (42-52); Hemoglobin 9.8 g/dl (14.0-18.0)
--- NOTE | 2018-04-06 18:23 | CONS ---
CONSULTATION REPORT: DATE OF CONSULT: 04/06/18 REQUESTING PHYSICIAN: Dr. Andrade in the emergency room. INDICATION: Bright red blood per rectum. LOCATION: Consultation was performed in room 3 in the emergency room. NARRATIVE: Mr. Pratt is a 57-year-old gentleman who has a past medical history of diastolic heart failure requiring both pacemaker and an AICD, chronic iron deficiency anemia, coronary artery disease, intravascular stents, type 2 diabetes, AFib, COPD, sleep apnea, refusing CPAP, and ascites of unknown etiology, presumed to be secondary to right-sided heart failure. The patient states that over the past month or so, he has noticed worsening bright red blood per rectum. He has daily bowel movements, he does not have to push, he does not have to strain. He denies any rectal pain, burning, or itching. He did see Dr. Martin Prasad in 2012 for bright red blood per rectum. He underwent a colonoscopy at that point. No abnormalities were seen. Specifically, no diverticulosis. No hemorrhoids were noted. No polyps were seen. It was noted that he had a 1 cm lipoma. The patient also has had worsening increased abdominal girth related to his ascites. His last large volume paracentesis was approximately 2 months ago. He did not adhere to a low sodium diet. He does have generalized abdominal pain, but he denies any fevers or chills. He states that his legs have started becoming more swollen also. PAST SURGICAL HISTORY: He did have an appendectomy. MEDICATIONS: Upon admission include: 1. Budesonide inhaler. 2. Xarelto. 3. Cardizem. 4. Digoxin. 5. Glipizide. 6. Glucotrol. 7. Janumet. 8. Lipitor. 9. Lisinopril. 10. Neurontin. 11. Prevacid. ALLERGIES: To IV and ORAL DYE. ROS: 12 systems were reviewed and other than that mentioned above were negative FAMILY HISTORY: Significant for diabetes, cerebrovascular accident, hypertension. SOCIAL HISTORY: No recent alcohol. No recent tobacco. PHYSICAL EXAM: Temperature is 98.1, blood pressure is 142/83, pulse is 67, O2 sat is 96%, respiratory rate of 16. General: Chronically ill-appearing male, lying flat in bed, appears older than his stated age, alert, oriented, pleasant , fluent. Neuro: No asterixis. HEENT: Mucous membranes are dry without lesions, ulcers, or exudate. Heart: Irregular rate and rhythm. Lungs: Coarse breath sounds bilaterally. Abdomen: Distended. Positive dull flanks. Soft. Positive bowel sounds. Rectal: No external skin tags or hemorrhoids were seen or felt. There was fresh bright red blood. LABORATORY DATA: Labs of note, white count is 9.2, hemoglobin is 10.2, platelets of 204. INR is 2.07. Chemistry shows a potassium of 6.7 up from 6.2 , creatinine is 1.2, glucose is 142. Alk phos is 119. Ammonia 61. ASSESSMENT AND PLAN: This is a 57-year-old gentleman with multiple medical comorbidities. 1. Ascites. He does have portal hypertension of unknown etiology, likely related to right heart failure. He has had an extensive workup in the past with no etiology found. He does need another large volume paracentesis for symptomatology. I would send the fluid for cell count, differential, culture and the SAAG. He needs to be on a low-sodium diet. Given his mild renal insufficiency, we will have difficulties with diuretics; however, this needs to be considered. 2. Bright red blood per rectum. He did have a colonoscopy 5 and a half to 6 years ago that was unremarkable. The patient really is not interested in another colonoscopy right now due to the fact that the last one hurt so much. I did talk to him about better sedation. I also talked to him about a flexible sigmoidoscopy since the blood is bright red. No external hemorrhoids were seen on digital rectal exam and we may find a source for the bleeding on the short flex sig, which would require enemas and minimal sedation. He seemed to be more agreeable to this and a full colonoscopy; however, I did tell him that if the flex sig was nondiagnostic, we may need to consider a full colonoscopy. He said he would consider that. Thus, at this point, I think we should perform a flexible sigmoidoscopy. He should have clear liquid diet at this point, 2 tap water enemas tomorrow. He will need a large volume paracentesis. He needs his potassium corrected. We will continue to follow along. [id number]/[facility] #: [id number] ALBIN[place]
[2018-04-06] MEDS: Mometasone/Formoter 100/5 MDI INH SCH (20:49)
--- NOTE | 2018-04-06 21:00 | HP ---
CC: Dr. Erasmo Hill; Dr. Kishor Fowler * HISTORY AND PHYSICAL: DATE OF ADMISSION: 04/06/18 PRIMARY CARE PROVIDER: Dr. Erasmo Hill ATTENDING PHYSICIAN: Dr. Heather Mckeon * (dictated by Guille Sagastume NP) CHIEF COMPLAINT: Bright red blood per rectum. HISTORY OF PRESENT ILLNESS: Mr. Pratt is a 57-year-old male with past medical history significant for renal failure, liver failure, diabetes mellitus type 2, CHF, GERD, depression, iron deficiency anemia, obstructive sleep apnea without CPAP use, atrial fibrillation, coronary artery disease, hypertension, COPD, and ascites, suspected to be secondary to right-sided heart failure, who presents to the emergency room with a 5-day history of bright red blood per rectum. Mr. Pratt states that he intermittently has bright red blood per rectum, but typically it stops. At this time, it has persisted. He denies needing to push or strain for bowel movements. He does take lactulose and Colace. The lactulose due to his liver failure. He denies any known history of hemorrhoids. He denies fevers, chills, or chest pain. He states he has a cough at baseline that is nonproductive with no change. He also has shortness of breath at baseline without change. He states he has had some vomiting yesterday and today. He denies diarrhea, abdominal pain, or urinary symptoms such as urgency, dysuria or frequency. He reports decreased appetite. He states that his last therapeutic paracentesis was approximately 2 months ago. He reports that his abdomen is larger than usual. Due to his symptoms, he presented to the emergency room for further evaluation. While in the emergency room, he was noted to have some bright red blood per rectum. He had lab work showing hemoglobin of 10.9, hematocrit 33, noted to be hyperkalemic with the potassium of 6.2, then repeat 6.7. He is noted to have an elevated creatinine which is near his baseline or better. He had an EKG showing atrial fibrillation. INR 2.07. He was seen in consultation by Dr. Kishor Fowler, who recommended he be admitted for further workup of his GI bleed. The hospitalist were asked to evaluate the patient for possible admission. PAST MEDICAL HISTORY: 1. Renal failure. 2. Liver failure. 3. Diabetes mellitus type 2. 4. Congestive heart failure. 5. GERD. 6. Depression. 7. Iron deficiency anemia. 8. Obstructive sleep apnea, noncompliant with CPAP. 9. Atrial fibrillation. 10. Coronary artery disease. 11. Hypertension. 12. COPD. 13. History of ascites, suspected to be secondary to right-sided heart failure. PAST SURGICAL HISTORY: 1. Status post cardiac catheterization with placement of 3 stents. 2. Status post ICD placement. 3. Status post appendectomy. 4. Status post cysto and stent placement. MEDICATIONS: Home medications include: 1. Spironolactone 25 mg oral daily. 2. Acetaminophen 1000 mg oral every 12 hours as needed for pain. 3. Zinc 220 mg oral daily. 4. Thiamine 100 mg oral daily. 5. Potassium chloride 20 mEq oral daily. 6. Janumet one tablet oral twice daily. 7. Lactulose 30 mL oral twice daily. 8. Ferrous sulfate 325 mg oral every other day. 9. Colace 100 mg oral twice daily as needed for constipation. 10. Furosemide 20 mg oral daily. 11. Symbicort 80/4.5 two puffs inhalation twice daily. 12. Maalox Plus 30 mL oral every 6 hours as needed for indigestion. 13. Xarelto 20 mg oral daily. 14. Aspirin 81 mg oral daily. 15. Nitroglycerin 0.4 mg sublingual every 5 minutes as needed for chest pain. 16. Cardizem 30 mg oral twice daily. 17. Magnesium oxide 400 mg oral 3 times day. 18. Prilosec 20 mg oral daily. 19. Lisinopril 2.5 mg oral daily. 20. Albuterol HFA inhaler 1 puff inhalation twice daily as needed for pain. 21. Gabapentin 300 mg oral twice daily. 22. Metoprolol succinate 25 mg oral daily. 23. Zyrtec 10 mg oral daily. 24. Atorvastatin 80 mg oral daily. ALLERGIES: CONTRAST DYE, SHELLFISH. FAMILY HISTORY: Mother with a history of coronary artery disease and diabetes. No family history of cancer. SOCIAL HISTORY: He is a former smoker, quitting approximately 10 to 15 years ago, prior to that he had 2- to 3-pack a day 20- to 30-year smoking history. He is a former alcoholic. He quit around the time he stopped smoking. He denies recreational drug use. His brother, Long Fitzgerald, and his girlfriend, India Eller, will be his surrogate decision makers in the event he is unable to make decisions for himself. REVIEW OF SYSTEMS: I performed an 11-point review of systems. All the pertinent positives and negatives are mentioned in the history of present illness. The remaining review of symptoms are negative. PHYSICAL EXAMINATION GENERAL APPEARANCE: The patient is alert, pleasant, appears to be in no acute distress. VITAL SIGNS: Temperature 98.1, heart rate 67, respiratory rate 16, O2 sat 96% on room air, blood pressure 142/83. HEENT: Normocephalic, atraumatic. Pupils are equal, reactive to light. Extraocular movements are intact. RESPIRATORY: There is no accessory muscle use. The lungs are clear to auscultation bilateral. CARDIOVASCULAR: Irregular rate, irregular rhythm but controlled. S1, S2 present. There are no murmurs, rubs, or gallops heard. ABDOMEN: Soft, nontender, nondistended. There are bowel sounds present x4. The patient has a large gravid appearing abdomen. RECTAL: Deferred as this was done by GI. EXTREMITIES: There is 2+ bilateral lower extremity edema. MUSCULOSKELETAL: There is no clubbing or cyanosis noted. NEUROLOGICAL: Alert and oriented x4. Cranial nerves II through XII are grossly intact. PSYCHOLOGICAL: Calm and cooperative. SKIN: There are no rashes or abnormalities seen. DIAGNOSTIC STUDIES/LABORATORY DATA: Sodium 136, potassium 6.2, chloride 108, CO2 of 26, BUN 20, creatinine 1.21, glucose 142. White blood cell count 9.2, hemoglobin 10.2, hematocrit 33, platelet count 204, INR 2.87. EKG shows atrial fibrillation with rate of 87. It is different from the previous from 01/26/18, at which time, he was ventricular paced. IMPRESSION: Mr. Pratt is a 57-year-old male with past medical history significant for renal failure, liver failure, diabetes, congestive heart failure , gastroesophageal reflux disease, depression, iron deficiency anemia, obstructive sleep apnea, atrial fibrillation, coronary artery disease, hypertension, chronic obstructive pulmonary disease, and ascites, who presents to the emergency room with complaints of bright red blood per rectum. He will be admitted as an inpatient for suspected lower gastrointestinal bleed. ASSESSMENT AND PLAN: 1. Bright red blood per rectum. I suspect this represents a lower gastrointestinal bleed as he is having no abdominal pain or no history of hemorrhoids, I suspect a diverticular bleed. I trend his hemoglobin and hematocrit every 6 hours and give him intravenous hydration. I will be cautious with intravenous hydration in the setting of his already lower extremity edema, ascites and history of heart failure. He has already been seen in consultation by Dr. Fowler with Gastroenterology, who recommends that he have a flexible sigmoidoscopy tomorrow and will need 2 tap water enemas tomorrow, I have ordered these for 8 a.m. and noon. He will be on a clear liquid diet. 2. Ascites. He will need a large volume paracentesis. I have ordered this to be done through Radiology, but we can certainly see if our hospitalist on staff tomorrow is able to perform this or if Surgery can can perform this. When this is done, he will need to have a cell count differential culture and SAAG. I believe we are unable to perform SAAGs here and the lab is finding out how to obtain at least an albumin so that we can do the full calculation ourselves. He is currently on furosemide and spironolactone, but in the setting of the bleeding, I would like to hold these at least over night. These could be restarted tomorrow. Can certainly give him some IV Lasix if he develops respiratory difficulties. 3. Renal failure. His creatinine and BUN are at his baseline. He has followup with Nephrology coming up in April. 4. Liver failure. Continue his lactulose withhold parameters for more than 4 loose stools in a day. Additionally, continue his thiamine. 5. Diabetes mellitus type 2. While he is only on clear liquids, we will check fingersticks q.[address] him on lispro sliding scale and hold his Janumet. 6. Congestive heart failure. I suspect he has right-sided heart failure. We will hold his diuretics as previously mentioned and we can restart these as needed. He has no sign of acute exacerbation at this time. He will have daily weights, strict I's and O's. 7. Gastroesophageal reflux disease. Continue him on his home omeprazole. 8. Depression. We will provide supportive care. 9. Iron deficiency anemia. We can continue his ferrous sulfate. Again, we are going to be following his H and H in the setting of a GI bleed. 10. Obstructive sleep apnea. He is noncompliant. 11. Atrial fibrillation. His rate is currently controlled. He is on Xarelto but in the setting of his GI bleed, we are going to need to hold this. We will continue his diltiazem. 12. Coronary artery disease. He denies any chest pain at this time. I am going to hold his aspirin. Continue his atorvastatin and continue his metoprolol. 13. Hypertension. I am going to continue his metoprolol withhold parameters, lisinopril and diltiazem. 14. Chronic obstructive pulmonary disease. No signs of chronic obstructive pulmonary disease exacerbation at this time. He will be continued on as needed albuterol and Symbicort or hospital substitute. 15. Fluids, electrolytes and nutrition. He is on a clear liquid. Once he is able to eat and drink, he should be on a low-sodium diet. This needs to be reinforced. 16. Code status. Full code. 17. DVT prophylaxis. He is at high risk, but in the setting of a GI bleed, he is not going to have chemical DVT prophylaxis and we can try SCDs on him. 18. Disposition. Inpatient. TIME SPENT: Time for this admission was approximately 60 minutes, greater than half of that was spent with the patient and brother discussing medications, past medical history, the events leading up to his arrival today, performing a physical examination. The case has been reviewed with the attending, Dr. Mckeon, who agrees with the plan of care. GUILLE SAGASTUME, DANIEL [id number]/[facility] #: [id number] ALBINO
[2018-04-06] MEDS: Gabapentin CAP(*) 300 MG PO SCH (22:37)
[2018-04-06] MEDS: Diltiazem TAB* 30 MG PO SCH (22:37)
[2018-04-06] MEDS: Magnesium Oxide TAB* 400 MG PO SCH (22:38)
[2018-04-07 00:17] LABS: Hematocrit 31 % (42-52); Hemoglobin 9.4 g/dl (14.0-18.0)
[2018-04-07] MEDS: Insulin LISPRO* 1 UNITS UNIT SUBCUT SCH ×5 (00:53→22:34)
[2018-04-07] MEDS: NS 0.9% 1000 ML** 1,000 ML IV SCH ×2 (03:15→11:29)
[2018-04-07 07:43] LABS: ABS Basophils 0 10^3/ul (0-0.2); ABS Eosinophils 0.1 10^3/ul (0-0.6); ABS Lymphocytes 1.7 10^3/ul (1.0-4.8); ABS Monocytes 0.5 10^3/ul (0-0.8); ABS Neutrophils 3.9 10^3/ul (1.5-7.7); ABS Nucleated RBC 0 10^3/ul; Eosinophil % 1.3 %; Hematocrit 30 % (42-52); Lymphocyte % 27.4 %; Mean Corpuscular HGB Conc 30 g/dl (31-36); Mean Corpuscular Hemoglobin 22 pg (27-31); Mean Corpuscular Volume 73 fL (80-94); Mean Platelet Volume 8.8 fL (7.4-10.4); Nucleated Red Blood Cells % 0; Platelet Count 156 10^3/ul (150-450); Red Blood Count 4.09 10^6/ul (4.00-5.40); Red Cell Distribution Width 18 % (10.5-15); White Blood Count 6.2 10^3/ul (3.5-10.8)
[2018-04-07] MEDS: Mometasone/Formoter 100/5 MDI INH SCH ×2 (07:51→19:29)
[2018-04-07 07:54] LABS: BUN/Creatinine Ratio 17.9 (8-20); Calcium 8.5 mg/dL (8.6-10.3); EGFR African American 87.1 (>60); Potassium 5.5 mmol/L (3.5-5.0)
[2018-04-07] MEDS ORDERED: Potassium Chlor TAB* 20 MEQ TAB.ER PO SCH (09:00)
[2018-04-07] MEDS: Zinc Sulfate CAP* 220 MG PO SCH (09:15)
[2018-04-07] MEDS: Cetirizine* 10 MG TAB PO SCH (09:15)
[2018-04-07] MEDS: Lisinopril TAB* 5 MG PO SCH (09:15)
[2018-04-07] MEDS: Pantoprazole TAB * 40 MG TAB PO SCH (09:15)
[2018-04-07] MEDS: Atorvastatin* 80 MG TAB PO SCH (09:15)
[2018-04-07] MEDS: Diltiazem TAB* 30 MG PO SCH ×2 (09:15→22:28)
[2018-04-07] MEDS: Gabapentin CAP(*) 300 MG PO SCH ×2 (09:15→22:28)
[2018-04-07] MEDS: Magnesium Oxide TAB* 400 MG PO SCH ×3 (09:15→22:29)
[2018-04-07] MEDS: Thiamine TAB* 100 MG TAB PO SCH (09:15)
[2018-04-07] MEDS: Metoprolol Succinate XL TAB* 25 MG PO SCH (09:15)
[2018-04-07] MEDS ORDERED: Patiromer POWDER* 8.4 GM PAK PO ONE (09:18)
--- NOTE | 2018-04-07 10:16 | PN ---
Subjective Date of Service: 04/07/18 Interval History: Pt states that he is feeling good. He has had no BRBPR since he was "flushed out" today in preparation for his sigmoidoscopy. He continues to feel SOB, but states that there is no change in this from his baseline. He c/o L leg tightness and cramping that is intermittent and comes about randomly. He denies abdominal pain, n/v/d/c, leg swelling, calf tenderness. He was unable to tell me the date today, but he state there is no change in this. Objective Active Medications: Acetaminophen (Tylenol Tab*) 650 mg PO Q6H PRN Al Hydrox/Mg Hydrox/Simethicone (Maalox Plus*) 30 ml PO Q6H PRN Albuterol (Ventolin Hfa Inhaler*) 1 puff INH BID PRN Atorvastatin Calcium (Lipitor*) 80 mg PO DAILY REJI Cetirizine HCl (Zyrtec*) 10 mg PO DAILY REJI; Protocol Diltiazem HCl (Cardizem Tab*) 30 mg PO BID REJI Ferrous Sulfate (Ferrous Sulfate Tab*) 325 mg PO EVERY OTHER DAY REJI Gabapentin (Neurontin Cap(*)) 300 mg PO BID REJI Sodium Chloride (Ns 0.9% 1000 Ml) 1,000 mls @ 125 mls/hr IV PER RATE REJI Insulin Human Lispro (Humalog*) 0 - 10 units SUBCUT Q6HR REJI; Protocol Lactulose (Lactulose*) 30 ml PO BID REJI Lisinopril (Prinivil Tab*) 2.5 mg PO QAM REJI Magnesium Oxide (Magox 400 Tab*) 400 mg PO TID REJI Metoprolol Succinate (Toprol Xl Tab*) 25 mg PO DAILY REJI Mometasone Furoate/Formoterol Fumar (Dulera 100/5 Mdi*) 2 puff INH BID REJI Pantoprazole Sodium (Protonix Tab*) 40 mg PO DAILY REJI Patiromer (Veltassa Powder*) 8.4 gm PO ONCE ONE Thiamine HCl (Vitamin B-1 Tab*) 100 mg PO DAILY REJI Zinc Sulfate (Zinc-220 Cap*) 220 mg PO DAILY REJI Vital Signs: Temp Pulse Resp BP Pulse Ox 97.4 F 79 18 148/85 93 04/07/18 07:39 04/07/18 07:51 04/07/18 09:49 02/19/19 07:39 04/07/18 07:51 Oxygen Devices in Use Now: None Appearance: Pt is laying on side in bed. He appears in no acute distress. He moves relatively slowly, but is able to change positions in bed. Eyes: No Scleral Icterus, PERRLA Ears/Nose/Mouth/Throat: NL Teeth, Lips, Gums, Clear Oropharnyx, Mucous Membranes Moist Neck: NL Appearance and Movements; NL JVP, Trachea Midline, No Thyroid Enlargement, Masses Respiratory: Symmetrical Chest Expansion and Respiratory Effort, Clear to Auscultation Cardiovascular: NL Sounds; No Murmurs; No JVD, - - Regular rate, irregular rhythm. Abdominal: - - Abdomen is protuberant. BS in all quadrants. Soft and nontender to palpation. There is no fluid wave. There is a large scar at the RLQ from appendectomy. Lymphatic: No Cervical Adenopathy Extremities: No Clubbing, Cyanosis, - - Radial and pedal pulses 1+ b/l. B/l LE with trace edema, nontender to palpation, negative Ar's. Neurological: - - Alert, oriented to person, place; date unknown. Result Diagrams: 04/07/18 07:10 04/07/18 07:10 Additional Lab and Data: Lab Results 04/06/18 04/06/18 04/06/18 Range/Units 14:21 14:21 14:21 WBC 9.2 (3.5-10.8) 10^3/ul RBC 4.58 (4.00-5.40) 10^6/ul Hgb 10.2 L (14.0-18.0) g/dl Hct 33 L (42-52) % MCV 73 L (80-94) fL MCH 22 L (27-31) pg MCHC 31 (31-36) g/dl RDW 18 H (10.5-15) % Plt Count 204 (150-450) 10^3/ul MPV 8.7 (7.4-10.4) fL Neut % (Auto) 78.8 % Lymph % (Auto) 12.4 % Lynn % (Auto) 6.3 % Eos % (Auto) 1.1 % Baso % (Auto) 1.4 % Absolute Neuts (auto) 7.2 (1.5-7.7) 10^3/ul Absolute Lymphs (auto) 1.1 (1.0-4.8) 10^3/ul Absolute Monos (auto) 0.6 (0-0.8) 10^3/ul Absolute Eos (auto) 0.1 (0-0.6) 10^3/ul Absolute Basos (auto) 0.1 (0-0.2) 10^3/ul Absolute Nucleated RBC 0 10^3/ul Nucleated RBC % 0 INR (Anticoag Therapy) 2.07 H (0.77-1.02) APTT 41.2 H (26.0-36.3) seconds Sodium 136 (135-145) mmol/L Potassium 6.2 H* (3.5-5.0) mmol/L Chloride 108 (101-111) mmol/L Carbon Dioxide 26 (22-32) mmol/L Anion Gap 2 (2-11) mmol/L BUN 20 (6-24) mg/dL Creatinine 1.21 H (0.67-1.17) mg/dL Est GFR ( Amer) 74.8 (>60) Est GFR (Non-Af Amer) 61.8 (>60) BUN/Creatinine Ratio 16.5 (8-20) Glucose 142 H (70-100) mg/dL Calcium 8.8 (8.6-10.3) mg/dL Total Bilirubin 0.40 (0.2-1.0) mg/dL AST 16 (13-39) U/L ALT 16 (7-52) U/L Alkaline Phosphatase 119 H (34-104) U/L Ammonia (16-53) mcmol/L Total Protein 6.6 (6.4-8.9) g/dL Albumin 3.9 (3.2-5.2) g/dL Globulin 2.7 (2-4) g/dL Albumin/Globulin Ratio 1.4 (1-3) Blood Type Antibody Screen 04/06/18 04/06/18 Range/Units 14:21 14:21 WBC (3.5-10.8) 10^3/ul RBC (4.00-5.40) 10^6/ul Hgb (14.0-18.0) g/dl Hct (42-52) % MCV (80-94) fL MCH (27-31) pg MCHC (31-36) g/dl RDW (10.5-15) % Plt Count (150-450) 10^3/ul MPV (7.4-10.4) fL Neut % (Auto) % Lymph % (Auto) % Lynn % (Auto) % Eos % (Auto) % Baso % (Auto) % Absolute Neuts (auto) (1.5-7.7) 10^3/ul Absolute Lymphs (auto) (1.0-4.8) 10^3/ul Absolute Monos (auto) (0-0.8) 10^3/ul Absolute Eos (auto) (0-0.6) 10^3/ul Absolute Basos (auto) (0-0.2) 10^3/ul Absolute Nucleated RBC 10^3/ul Nucleated RBC % INR (Anticoag Therapy) (0.77-1.02) APTT (26.0-36.3) seconds Sodium (135-145) mmol/L Potassium (3.5-5.0) mmol/L Chloride (101-111) mmol/L Carbon Dioxide (22-32) mmol/L Anion Gap (2-11) mmol/L BUN (6-24) mg/dL Creatinine (0.67-1.17) mg/dL Est GFR ( Amer) (>60) Est GFR (Non-Af Amer) (>60) BUN/Creatinine Ratio (8-20) Glucose (70-100) mg/dL Calcium (8.6-10.3) mg/dL Total Bilirubin (0.2-1.0) mg/dL AST (13-39) U/L ALT (7-52) U/L Alkaline Phosphatase (34-104) U/L Ammonia 61 H (16-53) mcmol/L Total Protein (6.4-8.9) g/dL Albumin (3.2-5.2) g/dL Globulin (2-4) g/dL Albumin/Globulin Ratio (1-3) Blood Type O Negative Antibody Screen Pending Assess/Plan/Problems-Billing Assessment: Pt is a 57yom with PMHx renal failure, liver failure, DM II, CHF, GERD, Depression, Fe deficiency anemia, ETHAN with CPAP, AF, CAD, HTN, COPD, h/o ascites who is admitted due to BRBPR and ascites. - Patient Problems (1) Bright red blood per rectum Comment: -Pt denies BRBPR since enema -Plan for flexible sigmoidoscopy today; await results (2) Ascites Comment: -Call out to sx for paracentesis -US guided paracentesis not necessary, per radiology reading -Spoke with Dr. Smith, who would like to wait until INR <1.5; will reassess INR for paracentesis tomorrow (3) Hyperkalemia Comment: -Patiromir now -Recheck BMP in a.m. (4) Diabetes Comment: -FS well controlled -Pt currently on CL diet for procedure today -Continue SS (5) Liver failure Comment: -Continue lactulose, thiamine (6) Congestive heart failure Comment: -Daily weight stable -Continue to hold lasix (7) Afib Comment: -Rate is controlled -Continue diltiazem -Hold Xareltio d/t ?GIB (8) Anemia Comment: -Continue ferrous sulfate (9) CAD (coronary artery disease) Comment: -Continue atorvastatin -Hold asa (10) HTN (hypertension) Comment: -Controlled -Continue metoprolol, diltiazem, lisinopril (11) DVT prophylaxis Comment: -Chemical ppx defered d/t ?GIB -Continue SCDs (12) Full code status Status and Disposition: Flex sigmoidoscopy today; paracentesis today. Inpatient. Discharge when stable.
[2018-04-07] MEDS ORDERED: Midazolam* 1 MG/ML 10 ML VIAL (10 MG) ONE (14:26)
[2018-04-07] MEDS ORDERED: fentaNYL* 50 MCG/ML 2 ML VIAL (100 MCG VIAL) ONE (14:26)
[2018-04-07] MEDS ORDERED: NS 0.9% 1000 ML** 1,000 ML IV SCH (16:41)
[2018-04-07] MEDS ORDERED: Dextrose 50% Syringe 50 ML* 25 GM/50 ML SYRINGE IV PUSH PRN (18:26)
[2018-04-08] MEDS: Mometasone/Formoter 100/5 MDI INH SCH ×2 (06:24→13:55)
[2018-04-08 06:51] LABS: INR 1.19 (0.77-1.02)
[2018-04-08 06:53] LABS: ABS Basophils 0.1 10^3/ul (0-0.2); ABS Eosinophils 0.2 10^3/ul (0-0.6); ABS Lymphocytes 1.4 10^3/ul (1.0-4.8); ABS Monocytes 0.5 10^3/ul (0-0.8); ABS Neutrophils 4.6 10^3/ul (1.5-7.7); ABS Nucleated RBC 0 10^3/ul; Eosinophil % 2.3 %; Hematocrit 31 % (42-52); Hemoglobin 9.4 g/dl (14.0-18.0); Lymphocyte % 21.3 %; Mean Corpuscular HGB Conc 30 g/dl (31-36); Mean Corpuscular Hemoglobin 22 pg (27-31); Mean Corpuscular Volume 73 fL (80-94); Mean Platelet Volume 8.9 fL (7.4-10.4); Nucleated Red Blood Cells % 0.1; Platelet Count 163 10^3/ul (150-450); Red Blood Count 4.25 10^6/ul (4.00-5.40); Red Cell Distribution Width 18 % (10.5-15); White Blood Count 6.8 10^3/ul (3.5-10.8)
[2018-04-08 07:04] LABS: BUN/Creatinine Ratio 15.5 (8-20); Calcium 8.5 mg/dL (8.6-10.3); EGFR African American 83.5 (>60)
[2018-04-08 07:14] LABS: Potassium 5.6 mmol/L (3.5-5.0)
[2018-04-08] MEDS: Insulin LISPRO* 1 UNITS UNIT SUBCUT SCH ×2 (08:09→12:46)
[2018-04-08] MEDS ORDERED: Ferrous Sulfate TAB* 325 MG PO SCH (09:00)
[2018-04-08] MEDS ORDERED: Patiromer POWDER* 8.4 GM PAK PO SCH ×2 (09:00→13:00)
[2018-04-08] MEDS ORDERED: Patiromer POWDER* 8.4 GM PAK PO ONE (09:18)
--- NOTE | 2018-04-08 09:33 | PRO ---
DATE: 04/07/18 - ROOM #412 REFERRING PHYSICIAN: Erasmo Hill MD.* PROCEDURE: Colonoscopy in mid ascending colon after two enema preps. INDICATION: This 57-year-old man with multiorgan failure including cardiomyopathy; status post AICD placement over 5 years ago, cirrhosis with INR at baseline 2 (concurrent Xarelto and low-dose aspirin therapy), had bright red rectal bleeding. It was painless. There was no overt change in his hemoglobin or rise in his BUN from baseline. He was given a two enema prep with good results per report. It was discussed that he will be given small doses of medication to avoid discomfort that he had previously perceived. ENDOSCOPIST: Dr. Shetty. MEDICATIONS: Midazolam 0.5 mg and fentanyl 50 mcg (two 25 mcg increments). FINDINGS: He is a chronically ill-appearing man, sallow complected, in overt distress. His abdomen is rotund with an ascitic contour. There is no tenderness. No organomegaly could be felt due to the ascites. There is peripheral edema. He is alert and oriented. He was rolled left side down and preliminary doses of medication given. He appeared somnolent. Perianal inspection was normal with no hemorrhoids or asymmetry or scarring whatsoever. Digital rectal showed a long sphincter segment with high tone. Initial views with an adult scope showed a little bit of fecal debris in the rectum layering independently. Otherwise, the rectal mucosa was normal. The fecal area was washed clear and 100% of the rectum seen. Inserting more proximally, there was no difficulty getting around the sigmoid or descending. The patient was comfortable with eyes closed and the scope extended to the proximal right colon, where for the first time a loop was perceived to be potentially rising up. The patient had no complaint or perception of this. Cecal cap was observed and was the first area to have some fecal debris adherent to the wall. The cecum was abnormal contours and symmetric and there appeared to be no issue. Two haustral markings distal to the ileocecal valve with a 6 mm sessile flattish adenomatous-appearing polyp without any advanced visual features. With an INR of 2 on Xarelto and his overall prognosis, this lesion did not appear to be relevant to any necessary clinical decision. Coming back, no other abnormalities were noted. A mildly prominent venous pattern was present in retroflexion in the rectum. IMPRESSION: 1. Small internal hemorrhoids. 2. Sessile benign right colon polyp. 3. Liver failure - part of the combination of factors predisposing to benign perianal bleeding. [id number]/[facility] #: [id number] [facility]
[2018-04-08] MEDS: Cetirizine* 10 MG TAB PO SCH (09:39)
[2018-04-08] MEDS: Atorvastatin* 80 MG TAB PO SCH (09:39)
[2018-04-08] MEDS: Diltiazem TAB* 30 MG PO SCH (09:39)
[2018-04-08] MEDS: Lisinopril TAB* 5 MG PO SCH (09:39)
[2018-04-08] MEDS: Metoprolol Succinate XL TAB* 25 MG PO SCH (09:40)
[2018-04-08] MEDS: Thiamine TAB* 100 MG TAB PO SCH (09:40)
[2018-04-08] MEDS: Magnesium Oxide TAB* 400 MG PO SCH ×2 (09:40→12:45)
[2018-04-08] MEDS: Pantoprazole TAB * 40 MG TAB PO SCH (09:40)
[2018-04-08] MEDS: Gabapentin CAP(*) 300 MG PO SCH (09:40)
[2018-04-08] MEDS: Zinc Sulfate CAP* 220 MG PO SCH ×2 (09:43→12:45)
--- NOTE | 2018-04-08 11:03 | PN ---
Subjective Date of Service: 04/08/18 Interval History: Pt is feeling well. His believes his swelling has gone down and states that he has not has bloody BM since around noon yesterday. He states that when he does have BRBPR, the toilet water turns red and there are streaks of blood on his toilet paper every time he wipes. He continues to have ascites, and is scheduled for paracentesis around 1600 today. Pt denies CP, fever, LE swelling, pain in calves. He does c/o slight cough, which he always has. He states that his SOB has decreased. He is eating and drinking well, and he is ambulating without difficulty. Objective Active Medications: Acetaminophen (Tylenol Tab*) 650 mg PO Q6H PRN PRN Reason: FEVER/PAIN Al Hydrox/Mg Hydrox/Simethicone (Maalox Plus*) 30 ml PO Q6H PRN PRN Reason: INDIGESTION Albuterol (Ventolin Hfa Inhaler*) 1 puff INH BID PRN PRN Reason: WHEEZING Atorvastatin Calcium (Lipitor*) 80 mg PO DAILY [facility] Last Admin: 04/08/18 09:39 Dose: 80 mg Cetirizine HCl (Zyrtec*) 10 mg PO DAILY [facility]; Protocol Last Admin: 04/08/18 09:39 Dose: 10 mg Dextrose (D50w Syringe 50 Ml*) 12.5 gm IV PUSH .FOR FS < 60 - SS PRN PRN Reason: FS < 60 Diltiazem HCl (Cardizem Tab*) 30 mg PO BID [facility] Last Admin: 04/08/18 09:39 Dose: 30 mg Ferrous Sulfate (Ferrous Sulfate Tab*) 325 mg PO EVERY OTHER DAY [facility] Last Admin: 04/08/18 09:40 Dose: 325 mg Gabapentin (Neurontin Cap(*)) 300 mg PO BID [facility] Last Admin: 04/08/18 09:40 Dose: 300 mg Insulin Human Lispro (Humalog*) 0 units SUBCUT ACHS [facility]; Protocol Last Admin: 04/08/18 08:09 Dose: Not Given Lactulose (Lactulose*) 30 ml PO BID [facility] Last Admin: 04/08/18 09:40 Dose: Not Given Lisinopril (Prinivil Tab*) 2.5 mg PO QAM [facility] Last Admin: 02/20/19 09:39 Dose: 2.5 mg Magnesium Oxide (Magox 400 Tab*) 400 mg PO TID [facility] Last Admin: 04/08/18 09:40 Dose: 400 mg Metoprolol Succinate (Toprol Xl Tab*) 25 mg PO DAILY [facility] Last Admin: 04/08/18 09:40 Dose: 25 mg Mometasone Furoate/Formoterol Fumar (Dulera 100/5 Mdi*) 2 puff INH BID [facility] Last Admin: 04/08/18 06:24 Dose: 2 puff Pantoprazole Sodium (Protonix Tab*) 40 mg PO DAILY [facility] Last Admin: 04/08/18 09:40 Dose: 40 mg Patiromer (Veltassa Powder*) 8.4 gm PO DAILY@0600 [facility] Thiamine HCl (Vitamin B-1 Tab*) 100 mg PO DAILY [facility] Last Admin: 04/08/18 09:40 Dose: 100 mg Zinc Sulfate (Zinc-220 Cap*) 220 mg PO DAILY [facility] Last Admin: 04/08/18 09:43 Dose: Not Given Vital Signs: Temp Pulse Resp BP Pulse Ox 97.3 F 80 20 136/76 88 04/08/18 07:53 04/08/18 07:53 04/08/18 09:40 04/08/18 07:53 04/08/18 07:53 Oxygen Devices in Use Now: None Appearance: Pt is sitting at edge of bed. He is in no acute distress. Eyes: No Scleral Icterus, PERRLA Ears/Nose/Mouth/Throat: NL Teeth, Lips, Gums, Clear Oropharnyx, Mucous Membranes Moist Neck: NL Appearance and Movements; NL JVP, Trachea Midline, No Thyroid Enlargement, Masses Respiratory: Symmetrical Chest Expansion and Respiratory Effort, Clear to Auscultation Cardiovascular: NL Sounds; No Murmurs; No JVD, RRR Abdominal: - - Abdomen is protuberant. Bowel sounds in all quadrants; nontender to palpation. Unable to palpate liver or spleen. Lymphatic: No Cervical Adenopathy Extremities: No Clubbing, Cyanosis, - - B/l LE edema Skin: No Rash or Ulcers Neurological: Alert and Oriented x 3 Result Diagrams: 04/08/18 06:16 04/08/18 06:16 Additional Lab and Data: Lab Results 04/06/18 04/06/18 04/06/18 Range/Units 14:21 14:21 14:21 WBC 9.2 (3.5-10.8) 10^3/ul RBC 4.58 (4.00-5.40) 10^6/ul Hgb 10.2 L (14.0-18.0) g/dl Hct 33 L (42-52) % MCV 73 L (80-94) fL MCH 22 L (27-31) pg MCHC 31 (31-36) g/dl RDW 18 H (10.5-15) % Plt Count 204 (150-450) 10^3/ul MPV 8.7 (7.4-10.4) fL Neut % (Auto) 78.8 % Lymph % (Auto) 12.4 % [place] % (Auto) 6.3 % Eos % (Auto) 1.1 % Baso % (Auto) 1.4 % Absolute Neuts (auto) 7.2 (1.5-7.7) 10^3/ul Absolute Lymphs (auto) 1.1 (1.0-4.8) 10^3/ul Absolute Monos (auto) 0.6 (0-0.8) 10^3/ul Absolute Eos (auto) 0.1 (0-0.6) 10^3/ul Absolute Basos (auto) 0.1 (0-0.2) 10^3/ul Absolute Nucleated RBC 0 10^3/ul Nucleated RBC % 0 INR (Anticoag Therapy) 2.07 H (0.77-1.02) APTT 41.2 H (26.0-36.3) seconds Sodium 136 (135-145) mmol/L Potassium 6.2 H* (3.5-5.0) mmol/L Chloride 108 (101-111) mmol/L Carbon Dioxide 26 (22-32) mmol/L Anion Gap 2 (2-11) mmol/L BUN 20 (6-24) mg/dL Creatinine 1.21 H (0.67-1.17) mg/dL Est GFR ( Amer) 74.8 (>60) Est GFR (Non-Af Amer) 61.8 (>60) BUN/Creatinine Ratio 16.5 (8-20) Glucose 142 H (70-100) mg/dL Calcium 8.8 (8.6-10.3) mg/dL Total Bilirubin 0.40 (0.2-1.0) mg/dL AST 16 (13-39) U/L ALT 16 (7-52) U/L Alkaline Phosphatase 119 H (34-104) U/L Ammonia (16-53) mcmol/L Total Protein 6.6 (6.4-8.9) g/dL Albumin 3.9 (3.2-5.2) g/dL Globulin 2.7 (2-4) g/dL Albumin/Globulin Ratio 1.4 (1-3) Blood Type Antibody Screen 04/06/18 04/06/18 Range/Units 14:21 14:21 WBC (3.5-10.8) 10^3/ul RBC (4.00-5.40) 10^6/ul Hgb (14.0-18.0) g/dl Hct (42-52) % MCV (80-94) fL MCH (27-31) pg MCHC (31-36) g/dl RDW (10.5-15) % Plt Count (150-450) 10^3/ul MPV (7.4-10.4) fL Neut % (Auto) % Lymph % (Auto) % [place] % (Auto) % Eos % (Auto) % Baso % (Auto) % Absolute Neuts (auto) (1.5-7.7) 10^3/ul Absolute Lymphs (auto) (1.0-4.8) 10^3/ul Absolute Monos (auto) (0-0.8) 10^3/ul Absolute Eos (auto) (0-0.6) 10^3/ul Absolute Basos (auto) (0-0.2) 10^3/ul Absolute Nucleated RBC 10^3/ul Nucleated RBC % INR (Anticoag Therapy) (0.77-1.02) APTT (26.0-36.3) seconds Sodium (135-145) mmol/L Potassium (3.5-5.0) mmol/L Chloride (101-111) mmol/L Carbon Dioxide (22-32) mmol/L Anion Gap (2-11) mmol/L BUN (6-24) mg/dL Creatinine (0.67-1.17) mg/dL Est GFR ( Amer) (>60) Est GFR (Non-Af Amer) (>60) BUN/Creatinine Ratio (8-20) Glucose (70-100) mg/dL Calcium (8.6-10.3) mg/dL Total Bilirubin (0.2-1.0) mg/dL AST (13-39) U/L ALT (7-52) U/L Alkaline Phosphatase (34-104) U/L Ammonia 61 H (16-53) mcmol/L Total Protein (6.4-8.9) g/dL Albumin (3.2-5.2) g/dL Globulin (2-4) g/dL Albumin/Globulin Ratio (1-3) Blood Type O Negative Antibody Screen Pending Assess/Plan/Problems-Billing Assessment: Pt is a 57yom with PMHx renal failure, liver failure, DM II, CHF, GERD, Depression, Fe deficiency anemia, ETHAN with CPAP, AF, CAD, HTN, COPD, h/o ascites who is admitted due to BRBPR and ascites. - Patient Problems (1) Bright red blood per rectum Comment: -Pt denies BRBPR today -Sigmoidoscopy extended to ileocecal valve and revealed small internal hemorrhoids, sessile benign R colon polyp, liver failure- part of combo of factors predisposing to benign perianal bleeding -Likely liver failure and internal hemorrhoids are causes of bleeding (2) Ascites Comment: -Nontender protuberant abdomen -Plan for paracentesis today at 4pm (3) Hyperkalemia Comment: -Due to time out of medication, Patiromir appears not to have been given yesterday -Patiromir ordered -Recheck BMP in a.m. (4) Diabetes Comment: -FS well controlled -Pt on low Na diet -Continue SS (5) Congestive heart failure Comment: -Daily weight increase appx 7# overnight; suspect error, but will restart Lasix , as pt has LE edema. -Restart lasix -Monitor electrolytes (6) Afib Comment: -Rate is controlled -Continue diltiazem -Will consider restart of xarelto after paracentesis (7) Liver failure Comment: -Continue lactulose, thiamine (8) Anemia Comment: -Continue ferrous sulfate (9) CAD (coronary artery disease) Comment: -Continue atorvastatin -Consider restart asa after paracentesis (10) HTN (hypertension) Comment: -Controlled -Continue metoprolol, diltiazem, lisinopril (11) DVT prophylaxis Comment: -Chemical ppx defered d/t BRBPR -Continue SCDs (12) Full code status Status and Disposition: Flex sigmoidoscopy today; paracentesis today. Inpatient. Discharge when stable.
[2018-04-08] MEDS ORDERED: Furosemide IV* 10 MG/ML 2 ML VIAL (20 MG) IV ONE (11:13)
[2018-04-08 16:00] VITALS: BP 143/74
--- NOTE | 2018-04-08 20:22 | DS ---
DISCHARGE SUMMARY: DATE OF ADMISSION: 04/06/18 DATE OF DISCHARGE: 04/08/18 PRIMARY CARE PROVIDER: Dr. Erasmo Hill. ATTENDING PHYSICIAN: Dr. Heather Mckeon * (dictated by CHERELLE Clarke). PRIMARY DIAGNOSIS: Bright red blood per rectum. SECONDARY DIAGNOSES: 1. Renal failure. 2. Liver failure. 3. Type 2 diabetes mellitus. 4. Congestive heart failure. 5. Gastroesophageal reflux disease. 6. Iron deficiency anemia. 7. Obstructive sleep apnea. 8. Atrial fibrillation. 9. Coronary artery disease. 10. Hypertension. 11. Chronic obstructive pulmonary disease. 12. Depression. 13. History of ascites. STUDIES WHILE IN THE HOSPITAL: Paracentesis ultrasound, 04/07/18, impression: Moderate amount of peritoneal ascites. DISCHARGE MEDICATIONS: Home medications: 1. Spironolactone 25 mg p.o. daily. 2. Acetaminophen 1000 mg p.o. q.12 hours p.r.n. pain. 3. Zinc sulfate cap 220 mg p.o. daily. 4. Thiamine tab 100 mg p.o. daily. 5. Janumet one tab p.o. b.i.d. 6. Lactulose 30 mL p.o. b.i.d. 7. Ferrous sulfate 325 p.o. every other day. 8. Furosemide 20 mg p.o. daily. 9. Docusate 100 mg p.o. b.i.d. p.r.n. constipation. 10. Symbicort 80/4.5 two-puff inhalation b.i.d. 11. Maalox 30 mL p.o. q.6 hours p.r.n. constipation. 12. Rivaroxaban tab 20 mg p.o. daily. 13. Aspirin 81 mg p.o. daily. 14. Nitroglycerin tab 0.4 mg sublingual q.5 minutes p.r.n. chest pain. 15. Diltiazem 30 mg p.o. b.i.d. 16. Magnesium oxide 400 mg p.o. t.i.d. 17. Omeprazole 20 mg p.o. daily. 18. Lisinopril 2.5 mg p.o. q.a.m. 19. Albuterol HFA inhaler 1 puff inhalation b.i.d. p.r.n. SOB. 20. Gabapentin 300 mg p.o. b.i.d. 21. Metoprolol succinate XL 25 mg p.o. daily. 22. Cetirizine 10 mg p.o. daily. 23. Atorvastatin 80 mg p.o. daily. Discontinued home medication: 1. Potassium 20 mEq p.o. daily. HISTORY OF PRESENT ILLNESS/HOSPITAL COURSE: Mr. Pratt is a 57-year-old male with a past medical history as described above, who presented to the ER on 04/06 with complaints of 5 days of bright red blood per rectum. He states that this is intermittent and typically stops, but at this time, it has been persistent. While in the emergency room, he was noted to have bright red blood per rectum. His lab work revealed that he had a decreased H and H, although this appears to be his baseline. He is also noted to be hyperkalemic with a potassium of 6.2. Creatinine was elevated, but was around his baseline. Dr. Fowler was consulted for further workup to determine if the patient was having GI bleed. It was also noted that the patient had ascites on admission. Hospitalist team was asked to admit and follow the patient. During this hospitalization, the patient had a colonoscopy to determine if there was a GI bleed. Per Dr. Shetty's report, there were small internal hemorrhoids. There was a sessile benign right colon polyp. Dr. Shetty points out that the patient does have liver failure and part of a combination of factors are predisposing the patient to benign perianal bleeding. The patient states that his rectal bleeding had subsided substantially after a couple days of hospitalization. On the day of discharge, he was noted to not have had any rectal bleeding that day since the following day at noon. Throughout the patient's hospital stay, it was noted that his potassium levels were constantly elevated. Upon discharge, it was noted that his potassium had dropped from approximately 6.7 to approximately 5.6. He was given patiromer prior to discharge in order to achieve maintainable levels. It was noted that the patient is on spironolactone, Lasix, and potassium 20. He will be discharged on his home doses of Lasix and spironolactone, but his potassium 20 mEq q. day will be discontinued and a BMP will be ordered to follow up within a week and be sent to his primary care provider. He is also suggested to follow up with his primary care provider within 1 week regarding this hospitalization and the results of the BMP, specifically the potassium level. The patient also came in with significant ascites. He was assessed via ultrasound, which revealed a moderate amount of peritoneal ascites. There was a surgical consult that was placed regarding the need for paracentesis. The patient states that he has no symptoms from the ascites, denying abdominal pain or irritation. He states that he does not have edema anywhere else in the body. Surgery saw the patient and states that there is no need to drain the fluid at this time as the risks would outweigh the benefits. This was discussed with the patient and he agrees. Mr. Pratt is stable for discharge to home. REVIEW OF SYSTEMS: The patient denies shortness of breath, chest pain, cough, fever, abdominal pain, nausea, vomiting, diarrhea, or constipation. He denies pain in the calves or swelling in the lower extremities. He states he has a slight cough, which he always has. He states that he always has shortness of breath, but it has decreased. He denies any difficulty with eating or drinking or ambulating. PHYSICAL EXAMINATION: Vital signs are temperature of 97.8, heart rate of 73, respiratory rate of 17, oxygen saturation of 96%, blood pressure is 143/74. General: Mr. Pratt is sitting at the edge of his bed. He is in no acute distress. He appears in good spirits and relatively well. HEENT: His visual hogan are grossly intact. His pupils are equally round and reactive to light. Extraocular movements are intact. His sclerae are without icterus. Hearing is grossly intact. Oral mucous membranes are moist and without lesion. His pharynx is clear. Neck: The patient has full range of motion. His trachea is at midline. There is no cervical lymphadenopathy. Respiratory: There is symmetrical chest expansion without use of accessory muscles. His lungs are clear to auscultation. There are no wheezes, rales, or rhonchi. Cardiovascular : Regular rate and rhythm with S1, S2 present. There are no murmurs, rubs, clicks, or gallops. Abdomen: Abdomen is protuberant. There are bowel sounds in all 4 quadrants. The abdomen is nontender to palpation. Unable to assess hepatosplenomegaly due to protuberance of abdomen. Extremities: Skin is warm and smooth bilaterally. Radial and pedal pulses are 1+ bilaterally. There is lower extremity trace edema noted. Calves are nontender to palpation. Neuro: The patient is awake, alert, and oriented. He is able to move all of his extremities and he has a steady gait without impairment. He uses a rolling walker. DISCHARGE PLAN: Mr. Pratt will be discharged home. ACTIVITY: As tolerated. DIET: Heart healthy. MEDICATIONS: As above. EDUCATION: Follow up with Dr. Erasmo Hill, PCP, in 3 to 7 days. Follow up with PCP regarding results of BMP. Follow up with Surgery if the patient starts to experience symptoms from ascites. BMP lab prescription has been given to the patient. Please get lab tests performed in 3 to 5 days. Return to the ER or nearest hospital if you experience any worsening of symptoms, shortness of breath, lightheadedness, dizziness, chest discomfort, high fevers, chills, night sweats, loss of consciousness, or any other worrisome signs or symptoms. This is a summarized report of a complex medical history and hospital stay. For further details, please see the entire medical record. TIME SPENT: Approximately 40 minutes were spent on this discharge; greater than half that time was spent [id number] with the patient and his family member discussing discharge plans and instructions. CHERELLE SOUZA [id number]/CPS #: [id number]
== END 2018-04-08 16:30 | disposition home or self-care (01) | DRG 378 ==
LOC: ED 13:57 → MED 18:10
PROVIDERS: ADMIT Internal Medicine; ATTEND Internal Medicine
PROC: 0W9G3ZZ Drainage of Peritoneal Cavity, Percutaneous Approach (ICD-10-PCS; principal; 2018-04-07)
PROC: 0DJD8ZZ Inspection of Lower Intestinal Tract, Via Natural or Artificial Opening Endoscopic (ICD-10-PCS; 2018-04-07)
DX: K62.5 Hemorrhage of anus and rectum (principal); I50.32 Chronic diastolic (congestive) heart failure; R18.8 Other ascites; K76.6 Portal hypertension; I13.0 Hypertensive heart and chronic kidney disease with heart failure and stage 1 through stage 4 chronic kidney disease, or unspecified chronic kidney disease; K72.90 Hepatic failure, unspecified without coma; K64.8 Other hemorrhoids; D50.9 Iron deficiency anemia, unspecified; I25.10 Atherosclerotic heart disease of native coronary artery without angina pectoris; J44.9 Chronic obstructive pulmonary disease, unspecified; I48.91 Unspecified atrial fibrillation; G47.33 Obstructive sleep apnea (adult) (pediatric); D17.5 Benign lipomatous neoplasm of intra-abdominal organs; F32.9 Major depressive disorder, single episode, unspecified; K21.9 Gastro-esophageal reflux disease without esophagitis; D12.6 Benign neoplasm of colon, unspecified; E87.5 Hyperkalemia; E78.00 Pure hypercholesterolemia, unspecified; N18.9 Chronic kidney disease, unspecified; E11.22 Type 2 diabetes mellitus with diabetic chronic kidney disease; M19.042 Primary osteoarthritis, left hand; M19.041 Primary osteoarthritis, right hand; Z82.49 Family history of ischemic heart disease and other diseases of the circulatory system; Z91.013 Allergy to seafood; Z95.5 Presence of coronary angioplasty implant and graft; Z91.041 Radiographic dye allergy status; Z87.442 Personal history of urinary calculi; Z87.891 Personal history of nicotine dependence; Z95.0 Presence of cardiac pacemaker; Z83.3 Family history of diabetes mellitus; Z79.82 Long term (current) use of aspirin; Z79.01 Long term (current) use of anticoagulants
CPT/HCPCS: 36415; 49083; 80048; 80053; 82140; 84132; 85014; 85018; 85025; 85610; 85730; 86850; 86870; 86880; 86900; 86901; 93005; 94640; 99156; 99157; 99283; A9270-GY; J1940; J2250; J3010

== ENCOUNTER 2018-05-10 19:01 | Inpatient (IN) | payer MEDICARE, MEDICAID ==
[2018-05-10] MEDS ORDERED: Furosemide IV* 10 MG/ML VIAL (40 MG) IV SLOW PU ONE ×2 (20:27→22:11)
--- NOTE | 2018-05-10 20:27 | ED ---
Abdominal Pain/Male - HPI Summary HPI Summary: This patient is a 57 year old M presenting to [facility] accompanied by brother with a chief complaint of left-sided abd pain that began approximately a week ago. The patient rates the pain 5/10 in severity. Symptoms aggravated by nothing. Symptoms alleviated by nothing. Patient reports abd swelling, SOB, and bilateral lower extremity edema. Patient denies nausea, vomiting, and fever. Patient states he has previously had fluid drained from his abdomen. - History of Current Complaint Chief Complaint: EDAbdPain Stated Complaint: "SWELLING IN LEGS PER PT" Time Seen by Provider: 05/10/18 20:14 Hx Obtained From: Patient Onset/Duration: Sudden Onset, Lasting Weeks, Still Present Timing: Constant Severity Initially: Moderate Severity Currently: Moderate Pain Intensity: 5 Pain Scale Used: 0-10 Numeric Location: Other - Positive left-sided Radiates: No Aggravating Factor(s): Nothing Alleviating Factor(s): Nothing Associated Signs And Symptoms: Positive: Other - Positive abd swelling, SOB, and bilateral lower extremity edema. Negative nausea, vomiting, and fever - Allergies/Home Medications Allergies/Adverse Reactions: Allergies Allergy/AdvReac Type Severity Reaction Status Date / Time Iodinated Contrast- Oral and Allergy Unknown Verified 04/06/18 14:00 IV Dye Reaction Details shellfish derived Allergy Unknown Verified 04/06/18 14:00 Reaction Details PMH/Surg Hx/FS Hx/Imm Hx Previously Healthy: No Endocrine/Hematology History: Reports: Hx Diabetes Denies: Hx Anticoagulant Therapy, Hx Blood Disorders, Hx Blood Transfusions, Hx Bone Marrow Disease, Hx Systemic Lupus Erythematosus, Hx Sickle Cell Disease , Hx Thyroid Disease, Hx Anemia, Hx Unexplained Bleeding, Other Endocrine/ Hematological Disorders Cardiovascular History: Reports: Hx Angina, Hx Angioplasty, Hx Atrial Fibrillation, Hx Auto Implanted Cardiovert Defib, Hx Congestive Heart Failure, Hx Coronary Artery Disease, Hx Hypercholesterolemia, Hx Hypertension, Hx Pacemaker/ICD - 2008 Denies: Hx Aneurysm, Hx Cardiac Arrest, Hx Cardiomegaly, Hx Congenital Heart Disease, Hx Deep Vein Thrombosis, Hx Embolism, Hx Hypotension, Hx Myocardial Infarction, Hx Peripheral Vascular Disease, Hx Rheumatic Fever, Hx Syncope, Hx Valvular Heart Disease, Other Cardiovascular Problems/Disorders Respiratory History: Reports: Hx 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, Hx Chronic Obstructive Pulmonary Disease (COPD), Hx Sleep Apnea Denies: Hx Chronic Bronchitis, Hx Cystic Fibrosis, Hx Lung Cancer, Hx Pleural Effusion, Hx Pneumonia, Hx Pulmonary Edema, Hx Pulmonary Embolism, Hx Seasonal Allergies, Other Respiratory Problems/Disorders GI History: Reports: Hx Gastroesophageal Reflux Disease Denies: Hx Cirrhosis, Hx Crohn's Disease, Hx Diverticulosis, Hx Gall Bladder Disease, Hx Gastrointestinal Bleed, Hx Hiatal Hernia, Hx Irritable Bowel, Hx Jaundice, Hx Obstructive Bowel, Hx Ileostomy, Hx Pyloric Stenosis, Hx Ulcer, Other GI Disorders History: Reports: Hx Kidney Stones - LEFT Denies: Hx Acute Renal Failure, Hx Benign Prostatic Hyperplasia, Hx Chronic Renal Failure, Hx Dialysis, Hx Kidney Infection, Hx Renal Disease, Other Problems/Disorders Musculoskeletal History: Reports: Hx Arthritis - BILATERAL HANDS AND LEGS Denies: Hx Back Problems, Hx Bursitis, Hx Congenital Bone Abnormalities, Hx Fibromyalgia, Hx Gout, Hx Orthopedic Injury, Hx Osteoporosis, Hx Scoliosis, Hx Tendonitis, Other Musculoskeletal History Sensory History: Denies: Hx Cataracts, Hx Contacts or Glasses, Hx Eye Injury, Hx Glaucoma, Hx Deafness, Hx Hearing Aid, Hx Hearing Problem Opthamlomology History: Denies: Hx Cataracts, Hx Contacts or Glasses, Hx Eye Injury, Hx Glaucoma Neurological History: Denies: Hx Dementia, Hx Headaches, Hx Migraine, Hx Seizures, Hx Transient Ischemic Attacks (TIA), Other Neuro Impairments/Disorders Psychiatric History: Reports: Hx Depression Denies: Hx Anxiety, Hx Attention Deficit Hyperactivity Disorder, Hx Eating Disorder, Hx Panic Disorder, Hx Post Traumatic Stress Disorder, Hx Inpatient Treatment, Hx Community Mental Health Tx, Hx Schizophrenia, Hx Bipolar Disorder , Hx Suicide Attempt, Hx of Violent Episodes Against Others, Hx Substance Abuse , Other Psychiatric Issues/Disorders - Surgical History Surgery Procedure, Year, and Place: PACEMAKER [facility] 2007. APPENDECTOMY [facility]. MULTIPLE CYSTO, L STENT, L ESWL PROCEDURES [facility]. CARDIAC CATH X3 2009, 2016 Hx Anesthesia Reactions: No - Immunization History Date of Tetanus Vaccine: Unknown Infectious Disease History: No Infectious Disease History: Denies: Hx Clostridium Difficile, Hx Hepatitis, Hx Human Immunodeficiency Virus (HIV), Hx of Known/Suspected MRSA, Hx Shingles, Hx Tuberculosis, Traveled Outside the [place] in Last 30 Days - Family History Known Family History: Positive: Cardiac Disease, Hypertension - Social History Occupation: Disabled Lives: Alone Alcohol Use: None Alcohol Amount: 2-3 PER DAY, former use Hx Substance Use: No Substance Use Type: Reports: None Hx Tobacco Use: Yes Smoking Status (MU): Former Smoker Type: Cigarettes Amount Used/How Often: 2 PACKS A DAY Length of Time of Smoking/Using Tobacco: about 20 years,not sure Have You Smoked in the Last Year: No Review of Systems Negative: Fever Positive: Shortness Of Breath Positive: Abdominal Pain, Other - Positive abd swelling. Negative: Vomiting, Nausea Positive: Edema All Other Systems Reviewed And Are Negative: Yes Physical Exam - Summary Physical Exam Summary: VITAL SIGNS: Reviewed. GENERAL: Patient is a well-developed and nourished male who is lying comfortable in the stretcher. Patient is not in any acute respiratory distress. Pale HEAD AND FACE: No signs of trauma. No ecchymosis, hematomas or skull depressions. No sinus tenderness. EYES: PERRLA, EOMI x 2, No injected conjunctiva, no nystagmus. EARS: Hearing grossly intact. Ear canals and tympanic membranes are within normal limits. MOUTH: Oropharynx within normal limits. NECK: Supple, trachea is midline, no adenopathy, no JVD, no carotid bruit, no c- spine tenderness, neck with full ROM. CHEST: Symmetric, no tenderness at palpation LUNGS: Clear to auscultation bilaterally. No wheezing or crackles. CVS: Regular rate and rhythm, S1 and S2 present, no murmurs or gallops appreciated. ABDOMEN: Soft, non-tender. abd distension consistent with shifting dullness consistent with ascites. No rebound no guarding, and no masses palpated. Bowel sounds are normal. EXTREMITIES: FROM in all major joints, bilateral lower extremity edema +3, no cyanosis or clubbing. NEURO: Alert and oriented x 3. No acute neurological deficits. Speech is normal and follows commands. SKIN: Dry and warm Triage Information Reviewed: Yes Vital Signs On Initial Exam: Initial Vitals Temp Pulse Resp BP Pulse Ox 98.6 F 61 18 122/78 97 05/10/18 19:09 05/10/18 19:09 05/10/18 19:09 05/10/18 19:09 05/10/18 19:09 Vital Signs Reviewed: Yes Diagnostics - Vital Signs Vital Signs Temp Pulse Resp BP Pulse Ox 05/10/18 19:09 98.6 F 61 18 122/78 97 - Laboratory Result Diagrams: 05/10/18 20:42 05/10/18 20:42 Lab Statement: Any lab studies that have been ordered have been reviewed, and results considered in the medical decision making process. - Radiology Chest XR Radiology Interpretation Completed By: ED Physician Summary of Radiographic Findings: CXR reveals, per ED physician, bilateral interstitial infiltrate, right pleural infusion, and cardiomegaly. Consistent with CHF. - EKG 2041 Cardiac Rate: NL Summary of EKG Findings: An EKG taken at 2041 reveals paced rhythm at 61 BPM. Abdominal Pain Male Course/Dx - Course Course Of Treatment: This patient is a 57 year old M presenting to [facility] accompanied by brother with a chief complaint of left-sided abd pain that began approximately a week ago. Physical Exam Findings: Pale, bilateral lower extremity edema +3, abd distension consistent with shifting dullness consistent with ascites. An EKG taken at 2041 reveals paced rhythm at 61 BPM. CXR reveals, per ED physician, bilateral interstitial infiltrate, right pleural infusion, and cardiomegaly. Consistent with CHF. Bloodwork obtained. In the ED course the patient was given Lasix. Consult with Dr. Feliz (hospitalist) at 2112. He agrees to admit the patient for further evaluation. The patient is agreeable with this plan. - Diagnoses Provider Diagnoses: Anasarca, CHF (congestive heart failure) - Provider Notifications Discussed Care Of Patient With: Titi Feliz Time Discussed With Above Provider: 21:13 Instructed by Provider To: Other - Consult with Dr. Feliz (hospitalist) at 2112. He agrees to admit the patient for further evaluation. Discharge - Sign-Out/Discharge Documenting (check all that apply): Patient Departure - Admit to [facility] Patient Received Moderate/Deep Sedation with Procedure: No - Discharge Plan Condition: Stable Disposition: ADMITTED TO [facility] Referrals: Erasmo Hill MD [Primary Care Provider] - - Attestation Statements Document Initiated by Scribe: Yes Documenting Scribe: Silvana Raza Provider For Whom Beni is Documenting (Include Credential): Dr. Rea Garvey MD Scribe Attestation: Silvana Griffiths, scribed for Dr. Rea Garvey MD on 05/10/18 at 2117. Status of Scribe Document: Ready
[2018-05-10 20:59] LABS: ABS Basophils 0.1 10^3/ul (0-0.2); ABS Eosinophils 0.1 10^3/ul (0-0.6); ABS Lymphocytes 1.4 10^3/ul (1.0-4.8); ABS Monocytes 0.9 10^3/ul (0-0.8); ABS Neutrophils 8.5 10^3/ul (1.5-7.7); ABS Nucleated RBC 0 10^3/ul; Eosinophil % 1.1 %; Hematocrit 31 % (36-46); Hemoglobin 9.2 g/dL (14.0-18.0); Lymphocyte % 13.1 %; Mean Corpuscular HGB Conc 30 g/dL (31-36); Mean Corpuscular Hemoglobin 21 pg (27-31); Mean Corpuscular Volume 71 fL (80-94); Mean Platelet Volume 8.9 fL (7.4-10.4); Nucleated Red Blood Cells % 0; Platelet Count 217 10^3/uL (150-450); Red Blood Count 4.35 10^6 /uL (4.18-5.48); Red Cell Distribution Width 18 % (10.5-15)
[2018-05-10 21:01] LABS: Activated Partial Thrombo Time 52.1 seconds (26.0-36.3); INR 3.21 (0.77-1.02)
[2018-05-10 21:09] LABS: Albumin 3.6 g/dL (3.2-5.2); Albumin/Globulin Ratio 1.4 (1-3); BUN/Creatinine Ratio 20.2 (8-20); C Reactive Protein 6.56 mg/L (<8.01); Calcium 8.6 mg/dL (8.6-10.3); EGFR African American 51.2 (>60); EGFR Non-African American 42.3 (>60); Globulin 2.6 g/dL (2-4); Total Bilirubin 0.5 mg/dL (0.2-1.0); Total Protein 6.2 g/dL (6.4-8.9)
[2018-05-10 21:11] LABS: Troponin I 0.03 ng/mL (<0.04)
[2018-05-10 21:12] LABS: Potassium 5.5 mmol/L (3.5-5.0)
[2018-05-10] MEDS ORDERED: Acetaminophen TAB* 325 MG PO PRN (22:09)
[2018-05-10] MEDS ORDERED: Ondansetron INJ* 2 MG/ML VIAL IV PRN (22:09)
[2018-05-10] MEDS ORDERED: Docusate CAP* 100 MG PO PRN (22:11)
[2018-05-10] MEDS ORDERED: Al Hydrox/Mg Hydrox/Simet LIQ* 30 ML UDC PO PRN (22:11)
[2018-05-10] MEDS ORDERED: Furosemide IV* 10 MG/ML 2 ML VIAL (20 MG) IV SLOW PU ONE (22:11)
[2018-05-10] MEDS ORDERED: Dextrose 50% Syringe 50 ML* 25 GM/50 ML SYRINGE IV PUSH PRN (22:14)
[2018-05-10] MEDS ORDERED: Furosemide IV* 10 MG/ML VIAL (40 MG) ONE (22:24)
[2018-05-11 02:29] LABS: Urine Appearance Clear; Urine Bacteria Absent (Absent); Urine Bilirubin Negative (Negative); Urine Blood Negative (Negative); Urine Color Straw; Urine Glucose Negative (Negative); Urine Ketones Negative (Negative); Urine Nitrite Negative (Negative); Urine Protein Negative (Negative); Urine Red Blood Cell Absent (Absent); Urine Specific Gravity 1.006 (1.010-1.030); Urine Squamous Epithelial Cell Present (Absent); Urine Urobilinogen Negative (Negative); Urine White Blood Cell 1+(6-10/hpf) (Absent)
--- NOTE | 2018-05-11 04:17 | HP ---
CC: Erasmo Hill MD * HISTORY AND PHYSICAL: DATE OF ADMISSION: 05/10/18 PRIMARY CARE PROVIDER: Erasmo Hill MD. MY ATTENDING WHILE IN THE HOSPITAL: Titi Feliz MD * (DICTATED BY CHERELLE KELLY) CHIEF COMPLAINT: "I'm full of fluid." HISTORY OF PRESENT ILLNESS: Mr. Pratt is a 57-year-old male with a very complex past medical history significant for heart failure, reduced ejection fraction with moderate pulmonary hypertension, atrial fibrillation, coronary artery disease, diabetes mellitus type 2, and ascites of unknown cause, who was admitted in this institution in late March with a rectal bleeding. At that time, he was diagnosed with internal hemorrhoids and no intervention was taken. The patient at that time was found to have ascites, but it was deemed that the risk of paracentesis will outweigh the benefit. The patient was also at that time markedly hyperkalemic and his potassium supplementation was stopped. The patient since that time has found himself gaining weight with initially only lower extremity edema and then felt like worsening of his ascites. The patient states that it has been coming on slowly, has not gotten worse. The patient states that he has avoided all added salt in his diet and that he has tried to avoid high salt foods such as potato chips, canned foods, eating out and other preserved foods. The patient was seen by his software installation engineer on and his Lasix at that time was increased. The patient notes no change with this. The patient has been getting worsening shortness of breath for the past several weeks with worst shortness of breath lying flat to the point that he is unable to lie fly as well as shortness of breath with exertion. He denies any chest pain. The patient states he has occasional abdominal pain, mainly on the left side of his abdomen, that is sharp, intermittent and reproducible with palpation. The patient denies any other abdominal pain. No fevers or chills. The patient has intermittent bright red blood in his stools consistent with previous findings. The patient has been taking lactulose and has approximately 2 loose bowel movements today. Due to the concern for severely worsened ascites , we were asked to evaluate the patient for admission to the hospital. PAST MEDICAL HISTORY: Heart failure with reduced ejection fraction, most recent EF 40% to 45%; iron deficiency anemia; chronic kidney disease; coronary artery disease; diabetes mellitus type 2; atrial fibrillation; COPD; nephrolithiasis; obstructive sleep apnea; ascites of unknown cause, presumed right heart failure; depression; moderate pulmonary hypertension; zinc deficiency; vitamin D deficiency and history of alcohol abuse. PAST SURGICAL HISTORY: 1. Catheterization with 3-stent placement. 2. ICD placement. 3. Appendectomy. 4. Cystoscopy with stent placement. MEDICATIONS: The patient does not know his medications, but he states they have changed since his most recent hospitalization. Based on his most recent discharge summary, the patient's medications are: 1. Albuterol 1 puff inhalation b.i.d. as needed. 2. Spironolactone 25 mg p.o. daily. 3. Acetaminophen 1000 mg p.o. q.12 hours as needed for pain. 4. Zinc sulfate 220 mg p.o. daily. 5. Thiamine tablet 100 mg p.o. daily. 6. Janumet one tab p.o. b.i.d. 7. Lactulose 30 mL p.o. b.i.d. 8. Ferrous sulfate 325 mg p.o. every other day. 9. Furosemide 20 mg p.o. daily. 10. Docusate 100 mg p.o. b.i.d. as needed for constipation. 11. Symbicort 80/4.5 two puffs inhalation b.i.d. 12. Maalox 30 mL p.o. q.6 hours as needed for constipation. 13. Xarelto 20 mg p.o. daily. 14. Aspirin 81 mg p.o. daily. 15. Nitroglycerin 0.4 mg sublingual q.5 minutes as needed for chest pain. 16. Diltiazem 30 mg p.o. b.i.d. 17. Magnesium oxide 400 mg p.o. t.i.d. 18. Omeprazole 20 mg p.o. daily. 19. Lisinopril 2.5 mg p.o. q.a.m. 20. Gabapentin 300 mg p.o. b.i.d. 21. Metoprolol succinate 25 mg p.o. daily. 22. Cetirizine 10 mg p.o. daily. 23. Atorvastatin 80 mg p.o. daily. ALLERGIES: IV CONTRAST and SHELLFISH. FAMILY HISTORY: The patient's father is alive and has heart failure. The patient's mother with CKD and heart disease. The patient has several siblings, all of whom are healthy. SOCIAL HISTORY: The patient quit smoking approximately 15 years ago, the patient unable to quantify before that. The patient quit drinking approximately 15 years ago, was a heavy drinker before that. The patient denies illicit drug use. 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 The patient is never and does not have any children. The patient's surrogate decision maker is his brother, Long Fitzgerald. REVIEW OF SYSTEMS: A 14-point review of systems was reviewed and is negative except as above in the HPI. PHYSICAL EXAMINATION GENERAL: The patient is a 57-year-old male who appears his older than his stated age and sitting comfortably in the bed, in no acute distress. VITAL SIGNS: Temperature 98.6, pulse rate 60, respiratory rate 29, oxygen saturation 92% on room air, blood pressure 120/90. HEENT: Normocephalic and atraumatic. Sclerae anicteric. No conjunctival injection. Nasal mucosa moist. Oral mucosa moist. No pharyngeal erythema, discharge, or exudate. NECK: Supple, nontender. No lymphadenopathy. No carotid bruits auscultated. No JVD. LUNGS: Clear to auscultation bilaterally. No wheezes, rales, or rhonchi. Good air exchange bilaterally. CARDIAC: Regular rate and rhythm. No clicks, murmurs, gallops, or rubs. Pulses are 2+ in the dorsalis pedis, posterior tibialis, and radial areas. A 3 + bilateral lower extremity edema noted. No bilateral calf tenderness. Ulcerations noted in the bilateral shins without weeping. ABDOMEN: Distended. Normoactive bowel sounds present in all 4 quadrants. No hepatosplenomegaly. No abdominal bruits auscultated. No hepatojugular reflux. GENITOURINARY: No suprapubic or CVA tenderness. SKIN: Clean, dry, and intact. No rashes except for above rash on the shins. NEUROLOGIC: Cranial nerves II through XII grossly intact. No focal deficits. Alert and oriented x3. PSYCHIATRIC: Pleasant and cooperative. DIAGNOSTIC STUDIES/LAB DATA: White blood cell count 11.1, hemoglobin 9.2, platelet count 217. INR 3.21 and aPTT 32.1. Sodium 136, potassium 5.5, chloride 102, carbon dioxide 26, anion gap 8, BUN 34, creatinine 1.68, glucose 119, calcium 8.6, bilirubin 0.5, AST 16, ALT 13, alkaline phosphatase 107, troponin I 0.03, CRP 6.56, BNP is 625. Protein 6.2, albumin 3.6, globulin 2.6. Studies: Chest x-ray shows bilateral pleural effusions, fluid overload. EKG shows paced rhythm, no signs of peaked T waves, left axis deviation, QTc is 695 , rate of 61. Compared to previous exam, predominant pacing has replaced atrial fibrillation. ASSESSMENT AND PLAN: Impression: Mr. Pratt is a 57-year-old male with a very complex past medical history including heart failure with reduced ejection fraction, EF 40% to 45%; chronic kidney disease; ascites of unknown origin; chronic obstructive pulmonary disease, and diabetes, who presents to the emergency department with worsening abdominal ascites for the past month with recent worsening in shortness of breath. The patient has been admitted to the hospital for IV diuresis and diagnostic and therapeutic paracentesis. 1. Large volume ascites. This has been a chronic issue for this patient. The patient previously had a paracentesis in January 2018, which showed elevated white blood cell and red blood cell count with a lymphocytic predominance, albumin of 1590 mg/dL with an elevated total protein indicating against cirrhotic origin of this fluid. The patient has portal hypertension causing internal hemorrhoids, presumably from right-sided heart failure. We will update an echo. The patient received 4 mg furosemide in the emergency department, we will give another 4 mg now and continue patient at 6 mg twice daily and monitoring the patient's renal function closely. The patient currently has elevated renal function, likely related to fluid overload. The patient has an elevated potassium. We will hold patient's spironolactone and lisinopril at this time due to the CARLOS. The patient has a normal troponin. There are no signs of acute coronary syndrome at this time. The patient may need a larger dose of furosemide or torsemide to increase absorption upon discharge. The differential for patient's ascites still includes other causes besides right-sided heart failure including carcinomatosis and liver failure, although this is less likely. The patient should continue to have a workup. The patient has no other signs of cirrhosis. The patient should have diagnostic and therapeutic paracentesis with SAAG, total protein, cell count and other studies as deemed necessary in the morning when patient's coagulation studies are within normal limits. 2. Heart failure with reduced ejection fraction. See above. The patient will have an updated echo, continue patient's metoprolol, hold the patient's lisinopril and spironolactone for hyperkalemia. If the patient's hyperkalemia is able to be fixed chronically with diuretics, would recommend restarting lisinopril and spironolactone. The patient's diltiazem may be contributing to his worsening edema, but it will be continue at this time due to discontinuation of other blood pressure medications, but can certainly be discontinued at some point. 3. Acute on chronic kidney disease. The patient has acute on chronic kidney disease with the creatinine of 1.6, up from patient's baseline around 1.2. This is likely related to fluid overload. If the patient's creatinine do not improve with diuresis and paracentesis, we would recommend further workup including FEUrea to certainly cause the patient's acute on chronic kidney injury. The patient's urinalysis is pending at this time. 4. Iron deficiency anemia. The patient is persistently iron deficient likely from his ongoing rectal bleeding from his internal hemorrhoids, though malabsorption due to other cause including possible small intestinal or bowel edema from a heart failure may be considered and repeat blood work with iron studies in the morning. IV iron should be considered if these are persistently low as this appears to have helped his anemia when administered in October 2017 and this may help his symptomatology and fluid overload. 5. Diabetes mellitus type 2. We will hold patient's metformin and Januvia in the setting of his acute on chronic kidney failure. We will treat with insulin sliding scale while in the hospital, to readjust it on an ongoing basis. 6. History of atrial fibrillation. The patient is in chronic AFib. We will continue the patient's rate control with metoprolol and diltiazem. The patient' s INR is currently over 3, which is likely related to his Xarelto with his chronic kidney disease. We will hold patient's Xarelto at this time and repeat INR in the morning. This needs to be normalized if paracentesis is going to be attempted. The patient's vitamin K levels and other coagulation study may be sent given the alarming increase of the patient's INR depending on the trajectory of its decrease. 7. Chronic obstructive pulmonary disease. Continue patient's Symbicort and albuterol inhaler as needed. 8. Obstructive sleep apnea. The patient is noncompliant with CPAP, this seems to be worsening the patient's ascites and right heart failure. 9. Zinc deficiency. Continue the patient's zinc. 10. Coronary artery disease. Hold the patient's aspirin for possible paracentesis. Continue statin and metoprolol. 11. FEN: The patient will have a heart-healthy diet without caffeine after his CT is performed. The patient is being diuresed and all fluids be given. 12. DVT prophylaxis. The patient currently has an INR of 3, so this will be monitored. The patient will not be given heparin at this time. 13. Disposition. The patient will be admitted inpatient with estimated length of stay of greater than 2 midnights. TIME SPENT: Approximately 60 minutes was spent on the admission of this patient , 30 of which was spent [id number] with the patient obtaining history and physical and discussing treatment plan. Plan was discussed with my attending, Dr. Titi Feliz, and he is in agreement. CHERELLE KELLY [id number]/[facility] #: [id number] ALBIN[place]
[2018-05-11 05:54] LABS: ABS Basophils 0.1 10^3/ul (0-0.2); ABS Eosinophils 0.1 10^3/ul (0-0.6); ABS Lymphocytes 1.7 10^3/ul (1.0-4.8); ABS Monocytes 0.8 10^3/ul (0-0.8); ABS Neutrophils 6.9 10^3/ul (1.5-7.7); ABS Nucleated RBC 0 10^3/ul; Eosinophil % 1.4 %; Hematocrit 31 % (36-46); Hemoglobin 9.4 g/dL (14.0-18.0); Lymphocyte % 17.4 %; Mean Corpuscular HGB Conc 30 g/dL (31-36); Mean Corpuscular Hemoglobin 22 pg (27-31); Mean Corpuscular Volume 71 fL (80-94); Mean Platelet Volume 8.5 fL (7.4-10.4); Nucleated Red Blood Cells % 0; Platelet Count 192 10^3/uL (150-450); Red Blood Count 4.33 10^6 /uL (4.18-5.48); Red Cell Distribution Width 17 % (10.5-15); White Blood Count 9.6 10^3/uL (3.5-10.8)
[2018-05-11 05:56] LABS: INR 2.43 (0.77-1.02)
[2018-05-11 06:07] LABS: ALT 11 U/L (7-52); AST 15 U/L (13-39); Albumin 3.4 g/dL (3.2-5.2); Albumin/Globulin Ratio 1.4 (1-3); Alkaline Phosphatase 89 U/L (34-104); BUN/Creatinine Ratio 19.6 (8-20); Blood Urea Nitrogen 33 mg/dL (6-24); CO2 Carbon Dioxide 29 mmol/L (22-32); Calcium 8.6 mg/dL (8.6-10.3); Chloride 104 mmol/L (101-111); EGFR African American 51.2 (>60); EGFR Non-African American 42.3 (>60); Globulin 2.5 g/dL (2-4); Glucose 102 mg/dL (70-100); Magnesium 1.6 mg/dL (1.9-2.7); Sodium 138 mmol/L (135-145); Total Protein 5.9 g/dL (6.4-8.9)
[2018-05-11 06:13] LABS: % Iron Saturation 6 % (15-55); Iron 17 ug/dL (50-212); Total Iron Binding Capacity 293 mcg/dL (250-450); Transferrin 209 mg/dL (203-362)
[2018-05-11 06:26] LABS: Anion Gap 5 mmol/L (2-11); Potassium 5.3 mmol/L (3.5-5.0)
[2018-05-11 06:33] LABS: Ferritin 14.5 ng/mL (24-336)
[2018-05-11] MEDS: Insulin LISPRO* 1 UNITS UNIT SUBCUT SCH ×4 (07:47→21:39)
[2018-05-11] MEDS ORDERED: Magnesium Sulfate 2 GM IV* 2 GM/50 ML BAG IVPB ONE (07:47)
[2018-05-11] MEDS: Furosemide IV* 10 MG/ML 10 ML VIAL (100 MG) IV SCH ×2 (07:58→17:58)
[2018-05-11] MEDS: Magnesium Oxide TAB* 400 MG PO SCH ×3 (08:01→21:38)
[2018-05-11] MEDS: Metoprolol Succinate XL TAB* 25 MG PO SCH (08:01)
[2018-05-11] MEDS: Pantoprazole TAB * 40 MG TAB PO SCH (08:01)
[2018-05-11] MEDS: Cetirizine* 10 MG TAB PO SCH (08:01)
[2018-05-11] MEDS: Diltiazem TAB* 30 MG PO SCH ×2 (08:01→21:39)
[2018-05-11] MEDS: Thiamine TAB* 100 MG TAB PO SCH (08:01)
[2018-05-11] MEDS: Atorvastatin* 80 MG TAB PO SCH (08:01)
[2018-05-11] MEDS: Gabapentin CAP(*) 300 MG PO SCH ×2 (08:01→21:38)
[2018-05-11] MEDS: Zinc Sulfate CAP* 220 MG PO SCH (08:02)
[2018-05-11] MEDS: Mometasone/Formoter 100/5 MDI INH SCH ×2 (08:24→20:41)
[2018-05-11] MEDS ORDERED: Perflutren Lipid Microsphere* 3 ML VIAL ONE (08:30)
[2018-05-11] MEDS ORDERED: Rivaroxaban TAB(*) 20 MG TAB PO SCH (09:00)
[2018-05-11] MEDS ORDERED: Aspirin EC TAB* 81 MG TAB.EC PO SCH (09:00)
--- NOTE | 2018-05-11 14:06 | PN ---
Subjective Date of Service: 05/11/18 Interval History: pt stated that his leg edema and large abdomen are getting smaller. Denies pain , denies SOB. sleeps with CPAP. stated that he saw Dr. Kelley recently but no meds were changed Objective Active Medications: Acetaminophen (Tylenol Tab*) 650 mg PO Q6H PRN PRN Reason: FEVER/PAIN Al Hydrox/Mg Hydrox/Simethicone (Maalox Plus*) 30 ml PO Q6H PRN PRN Reason: INDIGESTION Albuterol (Ventolin Hfa Inhaler*) 1 puff INH BID PRN PRN Reason: WHEEZING Atorvastatin Calcium (Lipitor*) 80 mg PO DAILY [facility] Last Admin: 05/11/18 08:01 Dose: 80 mg Cetirizine HCl (Zyrtec*) 10 mg PO DAILY [facility]; Protocol Last Admin: 05/11/18 08:01 Dose: 10 mg Dextrose (D50w Syringe 50 Ml*) 12.5 gm IV PUSH .FOR FS < 60 - SS PRN PRN Reason: FS < 60 Diltiazem HCl (Cardizem Tab*) 30 mg PO BID [facility] Last Admin: 05/11/18 08:01 Dose: 30 mg Docusate Sodium (Colace Cap*) 100 mg PO BID PRN PRN Reason: CONSTIPATION Ferrous Sulfate (Ferrous Sulfate Tab*) 325 mg PO EVERY OTHER DAY [facility] Furosemide (Lasix Iv*) 60 mg IV 0800,1700 [facility] Last Admin: 05/11/18 07:58 Dose: 60 mg Gabapentin (Neurontin Cap(*)) 300 mg PO BID [facility] Last Admin: 05/11/18 08:01 Dose: 300 mg Insulin Human Lispro (Humalog*) 0 units SUBCUT ACHS [facility]; Protocol Last Admin: 05/11/18 12:17 Dose: 3 units Lactulose (Lactulose*) 30 ml PO BID [facility] Last Admin: 05/11/18 08:02 Dose: 30 ml Magnesium Oxide (Magox 400 Tab*) 400 mg PO TID [facility] Last Admin: 05/11/18 08:01 Dose: 400 mg Metoprolol Succinate (Toprol Xl Tab*) 25 mg PO DAILY [facility] Last Admin: 05/11/18 08:01 Dose: 25 mg Mometasone Furoate/Formoterol Fumar (Dulera 100/5 Mdi*) 2 puff INH BID [facility] Last Admin: 05/11/18 08:24 Dose: Not Given Ondansetron HCl (Zofran Inj*) 4 mg IV Q6H PRN PRN Reason: NAUSEA Pantoprazole Sodium (Protonix Tab*) 40 mg PO DAILY [facility] Last Admin: 05/11/18 08:01 Dose: 40 mg Thiamine HCl (Vitamin B-1 Tab*) 100 mg PO DAILY [facility] Last Admin: 05/11/18 08:01 Dose: 100 mg Zinc Sulfate (Zinc-220 Cap*) 220 mg PO DAILY [facility] Last Admin: 05/11/18 08:02 Dose: 220 mg Vital Signs - 8 hr 05/11/18 05/11/18 05/11/18 07:22 07:31 07:59 Temperature 97.0 F Pulse Rate 84 Respiratory 20 20 Rate Blood Pressure 132/81 (mmHg) O2 Sat by Pulse 90 94 Oximetry 05/11/18 05/11/18 05/11/18 08:01 10:48 11:48 Temperature 97.4 F Pulse Rate 64 Respiratory 18 16 22 Rate Blood Pressure 126/64 (mmHg) O2 Sat by Pulse 93 Oximetry Oxygen Devices in Use Now: None Appearance: 57 yo m in nAD, AAOx3 Eyes: No Scleral Icterus, PERRLA Ears/Nose/Mouth/Throat: NL Teeth, Lips, Gums, Mucous Membranes Moist Neck: NL Appearance and Movements; NL JVP, Trachea Midline Respiratory: Symmetrical Chest Expansion and Respiratory Effort, Clear to Auscultation Cardiovascular: - - irregular Abdominal: - - soft ascites noted, NT, BS+ Lymphatic: No Cervical Adenopathy Extremities: No Clubbing, Cyanosis, - - +1 pitting ankle edema b/l Skin: No Rash or Ulcers, No Nodules or Sclerosis Neurological: Alert and Oriented x 3, NL Muscle Strength and Tone Result Diagrams: 05/11/18 05:34 05/11/18 05:34 Assess/Plan/Problems-Billing Assessment: 57 yr old M with prob hx of remote etoh abuse and recent ascites suspected due to right heart failure and CHF presented to er with weight gain and increased ascites. H/o AICD for NSVT chronic a. fib on Xarelto CKD stage 3 creat 1.2 CAD (stents in 2016) DM ETHAN (on CPAP) - Patient Problems (1) Ascites Comment: -Nontender protuberant abdomen -improving with IV Lasix -in 01/2018 ascites fluid cytology SAAG 1.2-suggestive of R heart failure, cytology positive for inflammation, interferon gold neg, [place] and lambda chain positive(D/w Dr. Barreto: with normal SPAP it's likely due to inflammation) -not sure fo bendefit of yet another paracentesis since it appears that dx is made and asictes improving with Lasix, but will d/c with GI (2) Acute on chronic renal insufficiency Comment: -Improving -Likely from dec renal perfusion in the setting of increased intraabdominal pressure/ascites -Improving with IV Lasix (3) Congestive heart failure Comment: Acute on chronic sytolic CHF. Echo on 03/27/18 EF 40% and severe pulm HTN and mod TR Cont daily Lasix (4) Afib Comment: -Rate is controlled -Continue diltiazem -Will consider restart of xarelto in PM if no paracentesis recommended after d/ w GI (5) AICD (automatic cardioverter/defibrillator) present Comment: noted, placed for primary prevention in setting of EF 30%, which is now improved to 40 and h/o NSVT (6) CAD (coronary artery disease) Comment: stable continue outpt meds (7) Type II diabetes mellitus Comment: hold home DM meds cont ISS (8) Iron (Fe) deficiency anemia Comment: with recent h/o hemorrhoidal bleed (03/2018) Hb stable Still low iron, cont ferrous sulfate (9) Hyperkalemia Comment: mild, cont to monitor. (10) DVT prophylaxis Comment: likely will restart Xarelto this PM Status and Disposition: inpatient
--- NOTE | 2018-05-11 14:34 | ECHO ---
Patient: FERCHO FRIAS [facility] Rec#: [id number] : 1960 Date: 05/11/2018 Age: 57y Height: 170 cm / 66.9 in Weight: 100 kg / 220.4 lbs Sex: M BSA: 2.11 Room#: [facility] Admit Date#: 05/10/2018 Type: Inpatient Referring: Socrates Haq Reading: Zaid Kline MD Weather Forecaster: Leia Tejeda RDCS CC: Erasmo Hill MD Transthoracic Echocardiogram Indication: Edema BP: 105/76 HR: 77 Rhythm: Paced Findings History: CAD,anemia,CKD,DM,a-fib,COPD,ETHAN,PHTN,ETOH abuse,s/p pacer insert. Technical Comments: The study is technically limited due to patient body habitus. Completed at 1050. Definity used to enhance images. The study is technically limited due to the patient's history of COPD. Left Ventricle: The left ventricular chamber size is normal. Mild concentric left ventricular hypertrophy is observed. Global left ventricular wall motion and contractility are within normal limits. Left ventricular systolic function is at the lower limits of normal. The estimated ejection fraction is 50-55%. There is abnormal ventricular septal wall motion consistent with right ventricular pacemaker. The assessment of diastolic function is non-diagnostic. Left Atrium: The left atrium is mild to moderately dilated. Right Ventricle: The right ventricle is mildly dilated. The right ventricular global systolic function is mildly reduced. The septum has abnormal paradoxical motion consistent with RV pacemaker. A pacemaker wire is visualized in the right ventricle. Right Atrium: The right atrial cavity size is normal. A pacemaker wire is visualized in the right atrium. Aortic Valve: The aortic valve is trileaflet. There is no evidence of aortic valve thickening. There is no evidence of aortic regurgitation. There is no evidence of aortic stenosis. Mitral Valve: The mitral valve leaflets are mildly thickened. There is trace to mild mitral regurgitation. There is no evidence of mitral stenosis. Tricuspid Valve: The tricuspid valve leaflets are normal. There is mild tricuspid regurgitation. There is evidence of moderate to severe pulmonary hypertension. Pulmonic Valve: The pulmonic valve appears normal. There is a trace pulmonic regurgitation. There is no pulmonic stenosis. Pericardium: There is no significant pericardial effusion. A pericardial fat pad is visualized. Aorta: There is mild dilatation of the ascending aorta. There is no dilatation of the aortic arch. There is no dilation of the aortic root. Pulmonary Artery: The main pulmonary artery appears normal. Venous: The venous system is not well visualized. Contrast: Definity was used to optimize study. Intravenous contrast was used to enhance endocardial border definition. Summary: There are no significant changes when compared to the previous study done on 11/05/17 Conclusions Mild concentric left ventricular hypertrophy is observed. Left ventricular systolic function is at the lower limits of normal. The estimated ejection fraction is 50-55%. There is abnormal ventricular septal wall motion consistent with right ventricular pacemaker. The septum has abnormal paradoxical motion consistent with RV pacemaker. There is no evidence of aortic stenosis. There is trace to mild mitral regurgitation. There is mild tricuspid regurgitation. There is evidence of moderate to severe pulmonary hypertension. There is no significant pericardial effusion. Measurements Name Value Normal Range RVIDd (AP) 2D 4 cm (0.9 - 2.6) RVDdMajor (2D) 5.2 cm (2.2 - 4.4) RAd ISD 4CH 4.4 cm (3.4 - 4.9) RA (A4C)W 4.6 cm (2.9 - 4.6) IVSd (2D) 1.3 cm (0.6 - 1) LVPWd (2D) 1.2 cm (0.6 - 1) LVIDd (2D) 4.6 cm (3.6 - 5.4) LVIDs (2D) 4.1 cm - LV FS (2D) 23 % (25 - 45) Aortic Annulus 2.2 cm (1.4 - 2.6) Ao root diameter (2D) 3.2 cm (2.1 - 3.5) Ascending Ao 3.6 cm (2.1 - 3.4) Aortic arch 2.8 cm (1.8 - 3.4) Descending Ao 0.7 cm - LA dimension (AP) 2D 4.3 cm (2.3 - 3.8) LAd ISD 4CH 5.3 cm (2.9 - 5.3) Name Value Normal Range LA ESV SP 4CH (A/L) 33 ml - LA ESV SP 2CH (A/L) 28 ml - LA ESV BP (A/L) index 30 ml/m2 - Name Value Normal Range MV E-wave Vmax 1 m/sec - MV deceleration time 202 msec - LV septal e' Vmax 0.06 m/sec - LV lateral e' Vmax 0.09 m/sec - LV E:e' septal ratio 16.67 ratio - LV E:e' lateral ratio 11.11 ratio - Name Value Normal Range AV Vmax 1.1 m/sec - AV VTI 21.3 cm - AV peak gradient 5 mmHg - AV mean gradient 2 mmHg - LVOT Vmax 0.6 m/sec - LVOT VTI 15.2 cm - LVOT peak gradient 1 mmHg - LVOT mean gradient 1 mmHg - Name Value Normal Range TR Vmax 3.9 m/sec - TR peak gradient 60 mmHg - RAP 8 mmHg - RVSP 68 mmHg - Name Value Normal Range PV Vmax 0.7 m/sec - PV peak gradient 2 mmHg -
[2018-05-11] MEDS: Rivaroxaban TAB(*) 20 MG TAB PO SCH (17:58)
--- NOTE | 2018-05-11 19:47 | CONS ---
CC: Dr. Hill * CONSULTATION REPORT: DATE OF CONSULT: 05/11/18 REQUESTING PHYSICIAN: Dr. Ta. INDICATION: Ascites. NARRATIVE: Mr. Pratt is a very pleasant 57-year-old gentleman who is well known to our service. He was in the hospital approximately a month ago for similar circumstances. 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 Kelley. The patient did have a large volume paracentesis the last time he was here that did confirm cirrhosis secondary to his right- sided heart failure. He states that over the past few weeks, he has noticed worsening ascites. He denies any lethargy. No confusion. He denies any black or tarry stools. He denies any increase in salt intake or sodium intake. He does take his medications on a regular basis. No unintentional weight loss, but unintentional weight gain. No abdominal pain. No diarrhea. PAST MEDICAL HISTORY: Significant for congestive heart failure, EF of 40%; chronic kidney disease; coronary artery disease; AFib; COPD; type 2 diabetes; ETHAN; depression; pulmonary hypertension; remote history of alcohol abuse. PAST SURGICAL HISTORY: Includes appendectomy and an ICD. MEDICATIONS: Medications upon admission include: 1. Albuterol. 2. Spironolactone. 3. Zinc. 4. Thiamine. 5. Janumet. 6. Lactulose. 7. Ferrous sulfate. 8. Lasix. 9. Symbicort. 10. Maalox. 11. Xarelto. 12. Aspirin. 13. Diltiazem. 14. Omeprazole. 15. Lisinopril. 16. Gabapentin. 17. Metoprolol. 18. Cetirizine. 19. Atorvastatin. ALLERGIES: To IV CONTRAST. FAMILY HISTORY: Chronic kidney disease, coronary artery disease. SOCIAL HISTORY: He quit smoking many, many years ago. He also tells me he quit drinking many years ago, was a heavy drinker prior to that. PHYSICAL EXAMINATION: Vital Signs: Temperature is 97.4, blood pressure is 126/ 64, pulse is 64, respiratory rate of 22, O2 sat is 93%. General: Well- appearing male, sitting up in bed, appears older than stated age. Alert, oriented, pleasant, fluent. Neuro: No asterixis. HEENT: Mucous membranes are moist, poor dentition. Neck is supple. Trachea is midline. Lymph: No cervical lymphadenopathy. Heart: Irregular rate and rhythm. Lungs: Clear to auscultation bilaterally. No wheezes, rales, or rhonchi. Abdomen: Distended. Positive bowel sounds. Soft, nontender throughout. The patient was examined sitting upright in a chair. He does have dull flanks. Skin is warm and dry. Extremities: 1+ pitting edema. DIAGNOSTIC STUDIES/LAB DATA: Labs of note, white count is 9.6, hemoglobin is 9.4, platelets of 192. INR is 2.43. BUN is 33, creatinine is 1.68. ASSESSMENT AND PLAN: This is a pleasant 57-year-old gentleman with cardiac cirrhosis and resulting ascites. He has had a large volume paracentesis in the past towards the end of January of last year. He has noticed increased abdominal girth since that time. At this point, we are going to try gentle diuresis as long as we are watching his kidneys very closely. At some point, he will need an upper endoscopy to evaluate for varices. There is no evidence of encephalopathy; however, he is maintained on lactulose. We can follow up with him as an outpatient and at some point, we should have a conversation regarding considering a liver transplant workup. We will continue to follow along during this hospitalization. [id number]/[facility] #: [id number] ALBINO
[2018-05-11] MEDS: Albuterol HFA INHALER* 8 gm MDI INH PRN (20:41)
[2018-05-12 06:19] LABS: ABS Basophils 0 10^3/ul (0-0.2); ABS Eosinophils 0.1 10^3/ul (0-0.6); ABS Lymphocytes 1.2 10^3/ul (1.0-4.8); ABS Monocytes 0.7 10^3/ul (0-0.8); ABS Neutrophils 6.1 10^3/ul (1.5-7.7); ABS Nucleated RBC 0 10^3/ul; Eosinophil % 1.6 %; Hematocrit 29 % (36-46); Mean Corpuscular HGB Conc 31 g/dL (31-36); Mean Corpuscular Hemoglobin 22 pg (27-31); Mean Corpuscular Volume 70 fL (80-94); Mean Platelet Volume 8.6 fL (7.4-10.4); Nucleated Red Blood Cells % 0; Platelet Count 191 10^3/uL (150-450); Red Blood Count 4.09 10^6 /uL (4.18-5.48); Red Cell Distribution Width 17 % (10.5-15); White Blood Count 8.3 10^3/uL (3.5-10.8)
[2018-05-12 06:37] LABS: BUN/Creatinine Ratio 21.9 (8-20); Calcium 8.9 mg/dL (8.6-10.3); EGFR African American 57.9 (>60); EGFR Non-African American 47.9 (>60); Magnesium 1.6 mg/dL (1.9-2.7); Potassium 4.9 mmol/L (3.5-5.0)
[2018-05-12] MEDS: Mometasone/Formoter 100/5 MDI INH SCH ×2 (07:25→19:15)
[2018-05-12] MEDS ORDERED: Ferrous Sulfate TAB* 325 MG PO SCH (09:00)
[2018-05-12] MEDS: Insulin LISPRO* 1 UNITS UNIT SUBCUT SCH ×4 (09:25→20:46)
[2018-05-12] MEDS: Metoprolol Succinate XL TAB* 25 MG PO SCH (09:26)
[2018-05-12] MEDS: Gabapentin CAP(*) 300 MG PO SCH ×2 (09:26→20:36)
[2018-05-12] MEDS: Furosemide IV* 10 MG/ML 10 ML VIAL (100 MG) IV SCH ×2 (09:26→17:40)
[2018-05-12] MEDS: Zinc Sulfate CAP* 220 MG PO SCH (09:26)
[2018-05-12] MEDS: Magnesium Oxide TAB* 400 MG PO SCH ×3 (09:27→20:37)
[2018-05-12] MEDS: Diltiazem TAB* 30 MG PO SCH ×2 (09:27→20:37)
[2018-05-12] MEDS: Pantoprazole TAB * 40 MG TAB PO SCH (09:27)
[2018-05-12] MEDS: Thiamine TAB* 100 MG TAB PO SCH (09:27)
[2018-05-12] MEDS: Atorvastatin* 80 MG TAB PO SCH (09:27)
[2018-05-12] MEDS: Ferrous Sulfate TAB* 325 MG PO SCH (09:27)
[2018-05-12] MEDS: Cetirizine* 10 MG TAB PO SCH (09:27)
--- NOTE | 2018-05-12 13:13 | PN ---
Subjective Date of Service: 05/12/18 Interval History: Pt Feels that his leg edema and abd circumference is improving Objective Active Medications: Acetaminophen (Tylenol Tab*) 650 mg PO Q6H PRN PRN Reason: FEVER/PAIN Al Hydrox/Mg Hydrox/Simethicone (Maalox Plus*) 30 ml PO Q6H PRN PRN Reason: INDIGESTION Albuterol (Ventolin Hfa Inhaler*) 1 puff INH BID PRN PRN Reason: WHEEZING Last Admin: 05/11/18 20:41 Dose: 1 puff Atorvastatin Calcium (Lipitor*) 80 mg PO DAILY [facility] Last Admin: 05/12/18 09:27 Dose: 80 mg Cetirizine HCl (Zyrtec*) 10 mg PO DAILY [facility]; Protocol Last Admin: 05/12/18 09:27 Dose: 10 mg Dextrose (D50w Syringe 50 Ml*) 12.5 gm IV PUSH .FOR FS < 60 - SS PRN PRN Reason: FS < 60 Diltiazem HCl (Cardizem Tab*) 30 mg PO BID [facility] Last Admin: 05/12/18 09:27 Dose: 30 mg Docusate Sodium (Colace Cap*) 100 mg PO BID PRN PRN Reason: CONSTIPATION Ferrous Sulfate (Ferrous Sulfate Tab*) 325 mg PO DAILY [facility] Last Admin: 05/12/18 09:27 Dose: 325 mg Furosemide (Lasix Iv*) 60 mg IV 0800,1700 [facility] Last Admin: 05/12/18 09:26 Dose: 60 mg Gabapentin (Neurontin Cap(*)) 300 mg PO BID [facility] Last Admin: 05/12/18 09:26 Dose: 300 mg Insulin Human Lispro (Humalog*) 0 units SUBCUT ACHS [facility]; Protocol Last Admin: 05/12/18 12:37 Dose: 9 units Lactulose (Lactulose*) 30 ml PO BID [facility] Last Admin: 05/12/18 09:49 Dose: 30 ml Magnesium Oxide (Magox 400 Tab*) 400 mg PO TID [facility] Last Admin: 05/12/18 09:27 Dose: 400 mg Metoprolol Succinate (Toprol Xl Tab*) 25 mg PO DAILY [facility] Last Admin: 05/12/18 09:26 Dose: 25 mg Mometasone Furoate/Formoterol Fumar (Dulera 100/5 Mdi*) 2 puff INH BID [facility] Last Admin: 05/12/18 07:25 Dose: 2 puff Ondansetron HCl (Zofran Inj*) 4 mg IV Q6H PRN PRN Reason: NAUSEA Pantoprazole Sodium (Protonix Tab*) 40 mg PO DAILY [facility] Last Admin: 05/12/18 09:27 Dose: 40 mg Rivaroxaban (Xarelto(*)) 20 mg PO QPM [facility] Last Admin: 05/11/18 17:58 Dose: 20 mg Thiamine HCl (Vitamin B-1 Tab*) 100 mg PO DAILY [facility] Last Admin: 05/12/18 09:27 Dose: 100 mg Zinc Sulfate (Zinc-220 Cap*) 220 mg PO DAILY [facility] Last Admin: 05/12/18 09:26 Dose: 220 mg Vital Signs - 8 hr 05/12/18 05/12/18 05/12/18 05:16 07:27 07:34 Temperature 97.9 F Pulse Rate 78 73 Respiratory 20 14 17 Rate Blood Pressure 134/74 (mmHg) O2 Sat by Pulse 99 91 Oximetry 05/12/18 05/12/18 05/12/18 09:26 11:17 11:50 Temperature 97.8 F Pulse Rate 78 Respiratory 16 18 18 Rate Blood Pressure 144/80 (mmHg) O2 Sat by Pulse 94 Oximetry 05/12/18 12:24 Temperature 96.9 F Pulse Rate 77 Respiratory 16 Rate Blood Pressure 131/77 (mmHg) O2 Sat by Pulse 97 Oximetry Oxygen Devices in Use Now: Nasal Cannula Appearance: 57 yo m in nAD, aAOx3 Eyes: No Scleral Icterus, PERRLA Ears/Nose/Mouth/Throat: NL Teeth, Lips, Gums, Mucous Membranes Moist Neck: NL Appearance and Movements; NL JVP, Trachea Midline Respiratory: Symmetrical Chest Expansion and Respiratory Effort, Clear to Auscultation Cardiovascular: NL Sounds; No Murmurs; No JVD, - - irregular Abdominal: - - soft ascites noted-moderate Extremities: No Clubbing, Cyanosis, - - +2 pitting pedal edema b/l Skin: No Nodules or Sclerosis Neurological: Alert and Oriented x 3, NL Muscle Strength and Tone Result Diagrams: 05/12/18 05:48 05/12/18 05:48 Microbiology and Other Data: Microbiology 05/11/18 02:00 Urine Culture - Final Urine No Growth (<1,000 CFU/mL) Assess/Plan/Problems-Billing Assessment: 57 yr old M with prob hx of remote etoh abuse and recent ascites suspected due to right heart failure and CHF presented to ED with weight gain and increased ascites. H/o AICD for NSVT chronic a. fib on Xarelto CKD stage 3 creat 1.2 CAD (stents in 2016) DM ETHAN (on CPAP) - Patient Problems (1) Ascites Comment: -Nontender protuberant abdomen -improving with IV Lasix -in 01/2018 ascites fluid cytology SAAG 1.2-suggestive of R heart failure, cytology positive for inflammation, interferon gold neg, [place] and lambda chain positive(D/w Dr. Barreto: with normal SPAP it's likely due to inflammation) -not sure of bendefit of yet another paracentesis since it appears that dx is made and asictes improving with Lasix. Xarelto restarted on 05/11/18 (2) Acute on chronic renal insufficiency Comment: -Improving -Likely from decreased renal perfusion in the setting of increased intraabdominal pressure/ascites -Improving with IV Lasix (3) Congestive heart failure Comment: Acute on chronic sytolic CHF. Echo on 03/27/18 EF 40% and severe pulm HTN and mod TR Cont daily Lasix (4) Afib Comment: -Rate is controlled -Continue diltiazem , xarelto (5) AICD (automatic cardioverter/defibrillator) present Comment: noted, placed for primary prevention in setting of EF 30%, which is now improved to 40 and h/o NSVT Had 10 beats of V.tach today in conjuction with hypomagnesemia (6) CAD (coronary artery disease) Comment: stable continue outpt meds (7) Type II diabetes mellitus Comment: hold home DM meds cont ISS (8) Iron (Fe) deficiency anemia Comment: with recent h/o hemorrhoidal bleed (03/2018) Hb stable Still low iron, cont ferrous sulfate (9) Hyperkalemia Comment: mild, cont to monitor. (10) DVT prophylaxis Comment: Xarelto Status and Disposition: inpatient
--- NOTE | 2018-05-12 13:55 | CONSULT ---
Palliative / Hospice Consult Ordering Provider: Shelby Ta - PCP-Meghanura - Subjective Code Status: Full Code Advance Directives Location: No Advance Directives MOLST Part A Completed: No MOLST Part E Completed:: No - History or Present Illness History or Present Illness: 57 yo male with diastolic CHF and COPD presents to ER with worsening ascites and SOB. PMH is significant for afib, DM type 2, iron def anemia, CKD stage3, CAD stent 2016 , ETHAN on CPAP and pacer. Lives in apt on his own ex smoker, no drug use, ex etoh user. 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 He has been hospitalized 6 times in the last year. ECHO mod-severe pul HTN, EF 50-55%, CXR mild pul. vascular congestion & small pleural effusion. Ekg vent paced Ct abd ascites and cardiomegaly. H/H 11/15, BUN/Cr 33/1.51 egfr 47.9, INR 2.43, james .5, alb 3.4, tprot 5.9 & iron 17. MELD score 20. Pt is feeling better since he was admitted and ascites has improved. Lab Values: Abnormal Lab Results 05/11/18 05/11/18 05/12/18 17:07 20:45 05:48 WBC 8.3 RBC 4.09 L Hgb 9.0 L Hct 29 L MCV 70 L MCH 22 L MCHC 31 RDW 17 H Plt Count 191 MPV 8.6 Neut % (Auto) 74.1 Lymph % (Auto) 15.0 [place] % (Auto) 8.9 Eos % (Auto) 1.6 Baso % (Auto) 0.4 Absolute Neuts (auto) 6.1 Absolute Lymphs (auto) 1.2 Absolute Monos (auto) 0.7 Absolute Eos (auto) 0.1 Absolute Basos (auto) 0 Absolute Nucleated RBC 0 Nucleated RBC % 0 Sodium Potassium Chloride Carbon Dioxide Anion Gap BUN Creatinine Est GFR ( Amer) Est GFR (Non-Af Amer) BUN/Creatinine Ratio Glucose POC Glucose (mg/dL) 181 H 192 H Calcium Magnesium 05/12/18 05/12/18 05/12/18 05:48 07:44 11:17 WBC RBC Hgb Hct MCV MCH MCHC RDW Plt Count MPV Neut % (Auto) Lymph % (Auto) [place] % (Auto) Eos % (Auto) Baso % (Auto) Absolute Neuts (auto) Absolute Lymphs (auto) Absolute Monos (auto) Absolute Eos (auto) Absolute Basos (auto) Absolute Nucleated RBC Nucleated RBC % Sodium 137 Potassium 4.9 Chloride 99 L Carbon Dioxide 33 H Anion Gap 5 BUN 33 H Creatinine 1.51 H Est GFR ( Amer) 57.9 Est GFR (Non-Af Amer) 47.9 BUN/Creatinine Ratio 21.9 H Glucose 159 H POC Glucose (mg/dL) 172 H 285 H Calcium 8.9 Magnesium 1.6 L Laboratory Last Values WBC 8.3 10^3/uL (3.5-10.8) 05/12/18 05:48 RBC 4.09 10^6 /uL (4.18-5.48) L 05/12/18 05:48 Hgb 9.0 g/dL (14.0-18.0) L 05/12/18 05:48 Hct 29 % (36-46) L 05/12/18 05:48 MCV 70 fL (80-94) L 05/12/18 05:48 MCH 22 pg (27-31) L 05/12/18 05:48 MCHC 31 g/dL (31-36) 05/12/18 05:48 RDW 17 % (10.5-15) H 05/12/18 05:48 Plt Count 191 10^3/uL (150-450) 05/12/18 05:48 MPV 8.6 fL (7.4-10.4) 05/12/18 05:48 Neut % (Auto) 74.1 % 05/12/18 05:48 Lymph % (Auto) 15.0 % 05/12/18 05:48 [place] % (Auto) 8.9 % 05/12/18 05:48 Eos % (Auto) 1.6 % 05/12/18 05:48 Baso % (Auto) 0.4 % 05/12/18 05:48 Absolute Neuts (auto) 6.1 10^3/ul (1.5-7.7) 05/12/18 05:48 Absolute Lymphs (auto) 1.2 10^3/ul (1.0-4.8) 05/12/18 05:48 Absolute Monos (auto) 0.7 10^3/ul (0-0.8) 05/12/18 05:48 Absolute Eos (auto) 0.1 10^3/ul (0-0.6) 05/12/18 05:48 Absolute Basos (auto) 0 10^3/ul (0-0.2) 05/12/18 05:48 Absolute Nucleated RBC 0 10^3/ul 05/12/18 05:48 Nucleated RBC % 0 05/12/18 05:48 INR (Anticoag Therapy) 2.43 (0.77-1.02) H 05/11/18 05:34 APTT 52.1 seconds (26.0-36.3) H 05/10/18 20:42 Sodium 137 mmol/L (135-145) 05/12/18 05:48 Potassium 4.9 mmol/L (3.5-5.0) 05/12/18 05:48 Chloride 99 mmol/L (101-111) L 05/12/18 05:48 Carbon Dioxide 33 mmol/L (22-32) H 05/12/18 05:48 Anion Gap 5 mmol/L (2-11) 05/12/18 05:48 BUN 33 mg/dL (6-24) H 05/12/18 05:48 Creatinine 1.51 mg/dL (0.67-1.17) H 05/12/18 05:48 Est GFR ( Amer) 57.9 (>60) 05/12/18 05:48 Est GFR (Non-Af Amer) 47.9 (>60) 05/12/18 05:48 BUN/Creatinine Ratio 21.9 (8-20) H 05/12/18 05:48 Glucose 159 mg/dL (70-100) H 05/12/18 05:48 POC Glucose (mg/dL) 285 mg/dL (70-100) H 05/12/18 11:17 Calcium 8.9 mg/dL (8.6-10.3) 05/12/18 05:48 Magnesium 1.6 mg/dL (1.9-2.7) L 05/12/18 05:48 Iron 17 ug/dL (50-212) L 05/11/18 05:34 TIBC 293 mcg/dL (250-450) 05/11/18 05:34 % Saturation 6 % (15-55) L 05/11/18 05:34 Unsat Iron Binding < 278 ug/dL 05/11/18 05:34 Transferrin 209 mg/dL (203-362) 05/11/18 05:34 Ferritin 14.5 ng/mL (24-336) L 05/11/18 05:34 Total Bilirubin 0.50 mg/dL (0.2-1.0) 05/11/18 05:34 AST 15 U/L (13-39) 05/11/18 05:34 ALT 11 U/L (7-52) 05/11/18 05:34 Alkaline Phosphatase 89 U/L (34-104) 05/11/18 05:34 Ammonia 50 mcmol/L (16-53) 05/11/18 05:34 Troponin I 0.03 ng/mL (<0.04) 05/10/18 20:42 C-Reactive Protein 6.56 mg/L (<8.01) 05/10/18 20:42 B-Natriuretic Peptide 625 pg/mL (<=100) H 05/10/18 20:42 Total Protein 5.9 g/dL (6.4-8.9) L 05/11/18 05:34 Albumin 3.4 g/dL (3.2-5.2) 05/11/18 05:34 Globulin 2.5 g/dL (2-4) 05/11/18 05:34 Albumin/Globulin Ratio 1.4 (1-3) 05/11/18 05:34 Urine Color Straw 05/11/18 02:00 Urine Appearance Clear 05/11/18 02:00 Urine pH 5.0 (5-9) 05/11/18 02:00 Ur Specific [place] 1.006 (1.010-1.030) L 05/11/18 02:00 Urine Protein Negative (Negative) 05/11/18 02:00 Urine Ketones Negative (Negative) 05/11/18 02:00 Urine Blood Negative (Negative) 05/11/18 02:00 Urine Nitrate Negative (Negative) 05/11/18 02:00 Urine Bilirubin Negative (Negative) 05/11/18 02:00 Urine Urobilinogen Negative (Negative) 05/11/18 02:00 Ur Leukocyte Esterase Trace (Negative) A 05/11/18 02:00 Urine WBC (Auto) 1+(6-10/hpf) (Absent) A 05/11/18 02:00 Urine RBC (Auto) Absent (Absent) 05/11/18 02:00 Ur Squamous Epith Cells Present (Absent) A 05/11/18 02:00 Urine Bacteria Absent (Absent) 05/11/18 02:00 Urine Glucose Negative (Negative) 05/11/18 02:00 - Objective Active Medications: Acetaminophen (Tylenol Tab*) 650 mg PO Q6H PRN PRN Reason: FEVER/PAIN Al Hydrox/Mg Hydrox/Simethicone (Maalox Plus*) 30 ml PO Q6H PRN PRN Reason: INDIGESTION Albuterol (Ventolin Hfa Inhaler*) 1 puff INH BID PRN PRN Reason: WHEEZING Last Admin: 05/11/18 20:41 Dose: 1 puff Atorvastatin Calcium (Lipitor*) 80 mg PO DAILY [facility] Last Admin: 05/12/18 09:27 Dose: 80 mg Cetirizine HCl (Zyrtec*) 10 mg PO DAILY [facility]; Protocol Last Admin: 05/12/18 09:27 Dose: 10 mg Dextrose (D50w Syringe 50 Ml*) 12.5 gm IV PUSH .FOR FS < 60 - SS PRN PRN Reason: FS < 60 Diltiazem HCl (Cardizem Tab*) 30 mg PO BID [facility] Last Admin: 05/12/18 09:27 Dose: 30 mg Docusate Sodium (Colace Cap*) 100 mg PO BID PRN PRN Reason: CONSTIPATION Ferrous Sulfate (Ferrous Sulfate Tab*) 325 mg PO DAILY [facility] Last Admin: 05/12/18 09:27 Dose: 325 mg Furosemide (Lasix Iv*) 60 mg IV 0800,1700 [facility] Last Admin: 05/12/18 09:26 Dose: 60 mg Gabapentin (Neurontin Cap(*)) 300 mg PO BID [facility] Last Admin: 05/12/18 09:26 Dose: 300 mg Insulin Human Lispro (Humalog*) 0 units SUBCUT ACHS [facility]; Protocol Last Admin: 05/12/18 12:37 Dose: 9 units Lactulose (Lactulose*) 30 ml PO BID [facility] Last Admin: 05/12/18 09:49 Dose: 30 ml Magnesium Oxide (Magox 400 Tab*) 400 mg PO TID [facility] Last Admin: 05/12/18 09:27 Dose: 400 mg Metoprolol Succinate (Toprol Xl Tab*) 25 mg PO DAILY [facility] Last Admin: 05/12/18 09:26 Dose: 25 mg Mometasone Furoate/Formoterol Fumar (Dulera 100/5 Mdi*) 2 puff INH BID [facility] Last Admin: 05/12/18 07:25 Dose: 2 puff Ondansetron HCl (Zofran Inj*) 4 mg IV Q6H PRN PRN Reason: NAUSEA Pantoprazole Sodium (Protonix Tab*) 40 mg PO DAILY [facility] Last Admin: 05/12/18 09:27 Dose: 40 mg Rivaroxaban (Xarelto(*)) 20 mg PO QPM [facility] Last Admin: 05/11/18 17:58 Dose: 20 mg Thiamine HCl (Vitamin B-1 Tab*) 100 mg PO DAILY [facility] Last Admin: 05/12/18 09:27 Dose: 100 mg Zinc Sulfate (Zinc-220 Cap*) 220 mg PO DAILY [facility] Last Admin: 05/12/18 09:26 Dose: 220 mg Vital Signs: Vital Signs: Temp Pulse Resp BP Pulse Ox 96.9 F 77 16 131/77 97 05/12/18 12:24 05/12/18 12:24 05/12/18 12:24 05/12/18 12:24 05/12/18 12:24 Patient Weight: Weight 93.44 kg Intake and Output: Intake & Output 05/10/18 05/11/18 05/12/18 05/13/18 06:59 06:59 06:59 06:59 Intake Total 0 1960 360 Output Total 450 1325 Balance -450 635 360 Weight 96.615 kg 93.44 kg Intake: IV Fluids 10 magnesium 10 IVPB 50 magnesium 50 Oral 0 1900 360 Output: Urine 450 1325 Other: Estimated Void Small # Bowel Movements 2 1 Estimated Stool Amount Small Medium # Voids 1 ADLs: Meal Record Start: 05/10/18 22: 51 Freq: DAILY@0900,1400,1800 Status: Active Protocol: Created 05/10/18 22:51 System (Rec: 05/10/18 22:51 System [id number]) Document 05/11/18 09:00 [id number] (Rec: 05/11/18 09:30 [id number] [facility]-8) Document 05/11/18 14:00 [id number] (Rec: 05/11/18 14:36 [id number] TELE-C08) Document 05/11/18 17:57 [id number] (Rec: 05/11/18 17:57 [id number] TELE-C11) Document 05/12/18 09:36 [id number] (Rec: 05/12/18 09:37 [id number] TELE-C07) Intake and Output Start: 05/10/18 19: 15 Freq: Status: Cancelled Protocol: Created 05/10/18 19:15 System (Rec: 05/10/18 19:15 System ED-C24) Document 05/10/18 21:38 [id number] (Rec: 05/10/18 21:38 [id number] ED-C18) Document 05/10/18 22:32 [id number] (Rec: 05/10/18 22:32 [id number] ED-C18) Intake and Output Start: 05/10/18 22: 51 Freq: DAILY@0600,1400,2200 Status: Cancelled Protocol: Created 05/10/18 22:51 System (Rec: 05/10/18 22:51 System [facility]-CS84) Document 05/11/18 06:00 [id number] (Rec: 05/11/18 06:19 [id number] TELE-C34) Intake and Output Start: 05/11/18 08: 18 Freq: 06,14,2200 Status: Active Protocol: Created 05/11/18 08:18 [id number] (Rec: 05/11/18 08:18 [facility]-BG12) Document 05/11/18 14:00 [id number] (Rec: 05/11/18 14:36 [id number] TELE-C08) Document 05/11/18 21:59 [id number] (Rec: 05/11/18 22:00 [id number] TELE-C08) Document 05/12/18 00:29 [id number] (Rec: 05/12/18 00:29 [id number] TELE-C08) Eyes: No Scleral Icterus, PERRLA Ears/Nose/Mouth/Throat: NL Teeth, Lips, Gums, Mucous Membranes Moist Neck: NL Appearance and Movements; NL JVP, Trachea Midline Cardiovascular: NL Sounds; No Murmurs; No JVD, - - irregular Respiratory: Clear to Auscultation Abdominal: - - soft ascites noted-moderate Extremities: No Clubbing, Cyanosis, - - +2 pitting pedal edema b/l Neurological: Alert and Oriented x 3, NL Muscle Strength and Tone - Assessment Assessment: 57 yo male with diastolic CHF and ascites improving - Plan Consult Plan (MU): Palliative Plan: Discussion with pt about his health issues and prognosis. Pt has limited understanding of his health issues and prognosis. I did address the MOLST form with him but he would like CPR and intubation. He would benefit from outpatient palliative services either [facility] or [facility], hopefully adding some support so he won' t keep needing to be hospitalized nd may gain insight into his health issues. - Time On Unit Date of Evaluation: 05/12/18 Hospice Consult Time in: 01:00 Hospice Consult Time Out: 02:00 Hospice Consult Time Total: 60 > 50% of Time Spend In Counseling or Coordinating Care: Yes
[2018-05-12] MEDS ORDERED: Magnesium Sulf 4 GM/100 ML IV* 4,000 MG/100 ML BAG IVPB ONE (15:23)
[2018-05-12] MEDS: Rivaroxaban TAB(*) 20 MG TAB PO SCH (17:40)
[2018-05-12] MEDS: Albuterol HFA INHALER* 8 gm MDI INH PRN (19:15)
[2018-05-13] MEDS: Mometasone/Formoter 100/5 MDI INH SCH ×2 (07:20→21:09)
[2018-05-13 08:48] LABS: Hematocrit 30 % (36-46); Mean Corpuscular HGB Conc 30 g/dL (31-36); Mean Corpuscular Hemoglobin 22 pg (27-31); Mean Corpuscular Volume 71 fL (80-94); Mean Platelet Volume 8.6 fL (7.4-10.4); Platelet Count 180 10^3/uL (150-450); Red Blood Count 4.18 10^6 /uL (4.18-5.48); Red Cell Distribution Width 17 % (10.5-15); White Blood Count 7.9 10^3/uL (3.5-10.8)
[2018-05-13 09:00] LABS: BUN/Creatinine Ratio 23.4 (8-20); Calcium 8.9 mg/dL (8.6-10.3); EGFR African American 62.7 (>60); EGFR Non-African American 51.8 (>60); Magnesium 2.1 mg/dL (1.9-2.7); Potassium 4.7 mmol/L (3.5-5.0)
[2018-05-13] MEDS: Insulin LISPRO* 1 UNITS UNIT SUBCUT SCH ×4 (09:25→20:33)
[2018-05-13] MEDS: Metoprolol Succinate XL TAB* 25 MG PO SCH (09:26)
[2018-05-13] MEDS: Furosemide IV* 10 MG/ML 10 ML VIAL (100 MG) IV SCH ×2 (09:26→17:09)
[2018-05-13] MEDS: Zinc Sulfate CAP* 220 MG PO SCH (09:26)
[2018-05-13] MEDS: Ferrous Sulfate TAB* 325 MG PO SCH (09:27)
[2018-05-13] MEDS: Atorvastatin* 80 MG TAB PO SCH (09:27)
[2018-05-13] MEDS: Gabapentin CAP(*) 300 MG PO SCH ×2 (09:27→20:33)
[2018-05-13] MEDS: Pantoprazole TAB * 40 MG TAB PO SCH (09:27)
[2018-05-13] MEDS: Diltiazem TAB* 30 MG PO SCH ×2 (09:27→20:34)
[2018-05-13] MEDS: Thiamine TAB* 100 MG TAB PO SCH (09:27)
[2018-05-13] MEDS: Magnesium Oxide TAB* 400 MG PO SCH ×3 (09:28→20:34)
[2018-05-13] MEDS: Cetirizine* 10 MG TAB PO SCH (09:28)
--- NOTE | 2018-05-13 11:45 | PN ---
Subjective Date of Service: 05/13/18 Interval History: feels better every day. wants to go home since his cat is left in his apartment. We decided that maybe tomorrow he can be discharged. Still has significant LE's edema Objective Active Medications: Acetaminophen (Tylenol Tab*) 650 mg PO Q6H PRN PRN Reason: FEVER/PAIN Last Admin: 05/12/18 15:47 Dose: 650 mg Al Hydrox/Mg Hydrox/Simethicone (Maalox Plus*) 30 ml PO Q6H PRN PRN Reason: INDIGESTION Albuterol (Ventolin Hfa Inhaler*) 1 puff INH BID PRN PRN Reason: WHEEZING Last Admin: 05/12/18 19:15 Dose: 1 puff Atorvastatin Calcium (Lipitor*) 80 mg PO DAILY [facility] Last Admin: 05/13/18 09:27 Dose: 80 mg Cetirizine HCl (Zyrtec*) 10 mg PO DAILY [facility]; Protocol Last Admin: 05/13/18 09:28 Dose: 10 mg Dextrose (D50w Syringe 50 Ml*) 12.5 gm IV PUSH .FOR FS < 60 - SS PRN PRN Reason: FS < 60 Diltiazem HCl (Cardizem Tab*) 30 mg PO BID [facility] Last Admin: 05/13/18 09:27 Dose: 30 mg Docusate Sodium (Colace Cap*) 100 mg PO BID PRN PRN Reason: CONSTIPATION Ferrous Sulfate (Ferrous Sulfate Tab*) 325 mg PO DAILY [facility] Last Admin: 05/13/18 09:27 Dose: 325 mg Furosemide (Lasix Iv*) 60 mg IV 0800,1700 [facility] Last Admin: 05/13/18 09:26 Dose: 60 mg Gabapentin (Neurontin Cap(*)) 300 mg PO BID [facility] Last Admin: 05/13/18 09:27 Dose: 300 mg Insulin Human Lispro (Humalog*) 0 units SUBCUT ACHS [facility]; Protocol Last Admin: 05/13/18 09:25 Dose: 3 units Lactulose (Lactulose*) 30 ml PO BID [facility] Last Admin: 05/13/18 11:10 Dose: Not Given Magnesium Oxide (Magox 400 Tab*) 400 mg PO TID [facility] Last Admin: 05/13/18 09:28 Dose: 400 mg Metoprolol Succinate (Toprol Xl Tab*) 25 mg PO DAILY [facility] Last Admin: 05/13/18 09:26 Dose: 25 mg Mometasone Furoate/Formoterol Fumar (Dulera 100/5 Mdi*) 2 puff INH BID [facility] Last Admin: 05/13/18 07:20 Dose: 2 puff Ondansetron HCl (Zofran Inj*) 4 mg IV Q6H PRN PRN Reason: NAUSEA Pantoprazole Sodium (Protonix Tab*) 40 mg PO DAILY [facility] Last Admin: 05/13/18 09:27 Dose: 40 mg Rivaroxaban (Xarelto(*)) 20 mg PO QPM [facility] Last Admin: 05/12/18 17:40 Dose: 20 mg Thiamine HCl (Vitamin B-1 Tab*) 100 mg PO DAILY [facility] Last Admin: 05/13/18 09:27 Dose: 100 mg Zinc Sulfate (Zinc-220 Cap*) 220 mg PO DAILY [facility] Last Admin: 05/13/18 09:26 Dose: 220 mg Vital Signs - 8 hr 05/13/18 05/13/18 05/13/18 07:21 08:10 09:27 Temperature 97.1 F Pulse Rate 62 76 Respiratory 14 14 14 Rate Blood Pressure 121/66 (mmHg) O2 Sat by Pulse 95 88 Oximetry Oxygen Devices in Use Now: Nasal Cannula Appearance: 57 yo M in nAD, aAOx3 Eyes: No Scleral Icterus, PERRLA Ears/Nose/Mouth/Throat: NL Teeth, Lips, Gums, Mucous Membranes Moist Neck: NL Appearance and Movements; NL JVP, Trachea Midline Respiratory: Symmetrical Chest Expansion and Respiratory Effort, Clear to Auscultation Cardiovascular: NL Sounds; No Murmurs; No JVD, - - irregular Abdominal: NL Sounds; No Tenderness; No Distention, No Hepatosplenomegaly, - - soft ascites noted, NT Lymphatic: No Cervical Adenopathy Extremities: No Clubbing, Cyanosis, - - +2 pitting edema slowly improving Neurological: Alert and Oriented x 3, NL Muscle Strength and Tone Result Diagrams: 05/13/18 08:18 05/13/18 08:18 Microbiology and Other Data: Microbiology 05/11/18 02:00 Urine Culture - Final Urine No Growth (<1,000 CFU/mL) Assess/Plan/Problems-Billing Assessment: 57 yr old M with prob hx of remote etoh abuse and recent ascites suspected due to right heart failure and CHF presented to ED with weight gain and increased ascites. H/o AICD for NSVT chronic a. fib on Xarelto CKD stage 3 creat 1.2 CAD (stents in 2016) DM ETHAN (on CPAP) - Patient Problems (1) Ascites Comment: -Nontender protuberant abdomen -improving with IV Lasix -in 01/2018 ascites fluid cytology SAAG 1.2-suggestive of R heart failure, cytology positive for inflammation, interferon gold neg, Ambrose and lambda chain positive(D/w Dr. Barreto: with normal SPAP it's likely due to inflammation) -not sure of bendefit of yet another paracentesis since it appears that dx is made and ascites improving with Lasix. Xarelto restarted on 05/11/18 (2) Acute on chronic renal insufficiency Comment: -Improving -Likely from decreased renal perfusion in the setting of increased intraabdominal pressure/ascites -Improving with IV Lasix (3) Congestive heart failure Comment: Acute on chronic sytolic CHF. Echo on 03/27/18 EF 40% and severe pulm HTN and mod TR Cont daily Lasix (4) Afib Comment: -Rate is controlled -Continue diltiazem , xarelto (5) AICD (automatic cardioverter/defibrillator) present Comment: noted, placed for primary prevention in setting of EF 30%, which is now improved to 40 and h/o NSVT Had 10 beats of V.tach on 05/13/18 in conjuction with hypomagnesemia (6) CAD (coronary artery disease) Comment: stable continue outpt meds (7) Type II diabetes mellitus Comment: hold home DM meds cont ISS (8) Iron (Fe) deficiency anemia Comment: with recent h/o hemorrhoidal bleed (03/2018) Hb stable Still low iron, cont ferrous sulfate (9) Hyperkalemia Comment: mild, cont to monitor. (10) DVT prophylaxis Comment: Xarelto Status and Disposition: inpatient
[2018-05-13] MEDS: Rivaroxaban TAB(*) 20 MG TAB PO SCH (17:08)
[2018-05-14] MEDS: Insulin LISPRO* 1 UNITS UNIT SUBCUT SCH ×2 (08:18→11:44)
[2018-05-14] MEDS: Furosemide IV* 10 MG/ML 10 ML VIAL (100 MG) IV SCH (08:20)
[2018-05-14] MEDS: Cetirizine* 10 MG TAB PO SCH (08:21)
[2018-05-14] MEDS: Atorvastatin* 80 MG TAB PO SCH (08:21)
[2018-05-14] MEDS: Diltiazem TAB* 30 MG PO SCH (08:21)
[2018-05-14] MEDS: Ferrous Sulfate TAB* 325 MG PO SCH (08:21)
[2018-05-14] MEDS: Metoprolol Succinate XL TAB* 25 MG PO SCH (08:21)
[2018-05-14] MEDS: Magnesium Oxide TAB* 400 MG PO SCH ×2 (08:21→14:04)
[2018-05-14] MEDS: Thiamine TAB* 100 MG TAB PO SCH (08:21)
[2018-05-14] MEDS: Zinc Sulfate CAP* 220 MG PO SCH (08:21)
[2018-05-14] MEDS: Pantoprazole TAB * 40 MG TAB PO SCH (08:21)
[2018-05-14] MEDS: Gabapentin CAP(*) 300 MG PO SCH (08:22)
[2018-05-14] MEDS: Mometasone/Formoter 100/5 MDI INH SCH (09:53)
[2018-05-14 11:47] VITALS: BP 128/72
--- NOTE | 2018-05-14 23:50 | DS ---
CC: Dr. Hill; Dr. German; Bhargavi Sheikh NP, Cardiology * DISCHARGE SUMMARY: DATE OF ADMISSION: 05/10/18 DATE OF DISCHARGE: 05/14/18 PRIMARY CARE PROVIDER: Dr. Hill. DISCHARGE DIAGNOSES: 1. Shortness of breath and resultant acute hypoxemic respiratory failure due to acute diastolic congestive heart failure. The patient will require oxygen at 2 L continuously at discharge. 2. Worsening ascites as a consequence of acute on chronic systolic and diastolic congestive heart failure with the right-sided heart failure. 3. Hyperkalemia. PAST MEDICAL HISTORY: 1. History of CHF with reduced ejection fraction, EF of 40% to 45%. 2. Iron deficiency anemia with recent GI bleed presumed to be hemorrhoidal noted during the patient's hospital stay, March 2018. 3. Acute on chronic renal insufficiency due to decreased renal perfusion secondary to CHF that improved during the patient's hospital stay. 4. Diabetes, type 2. 5. History of chronic atrial fibrillation. 6. History of COPD. 7. History of obstructive sleep apnea, on CPAP. 8. Ascites due to right-sided heart failure documented with the SAAG gradient of 1.2 in January 2018. 9. History of moderate pulmonary hypertension. 10. Zinc deficiency. 11. Vitamin D deficiency. 12. History of alcohol abuse. 13. Status post 3 cardiac stents placed in the past. 14. Status post ICD placement in the past. DISCHARGE MEDICATIONS: 1. Acetaminophen on a p.r.n. basis. 2. Albuterol inhaler on a p.r.n. basis. 3. Aspirin 81 mg daily. 3. Lipitor 80 mg daily. 4. Symbicort 80/4.5 two puffs inhalation b.i.d. 5. Zyrtec 10 mg daily. 6. Cardizem 30 mg b.i.d. 7. Neurontin 300 mg b.i.d. 8. Metoprolol succinate 25 mg daily. 9. Omeprazole 20 mg daily. 10. Xarelto 20 mg daily. 11. Janumet one tablet b.i.d. 12. Colace 100 mg b.i.d. p.r.n. 13. Ferrous sulfate 325 mg daily. 14. Furosemide; the patient's furosemide was increased from 20 mg daily to 80 mg daily. 15. Lactulose 30 mL b.i.d. 16. Mag-Ox 400 mg 3 times a day. 17. Nitroglycerin sublingually on a p.r.n. basis. 18. Thiamine 100 mg daily. 19. Zinc sulfate 220 mg daily. Lisinopril and Aldactone were discontinued due to hyperkalemia. LABORATORY DATA AND STUDIES PERFORMED DURING THE HOSPITAL STAY: Included: On 05/13/18, white blood cell count of 7.9, hemoglobin 9.0, hematocrit at the rate of 30, MCV of 71, and platelets of 180. On 05/13/18, sodium of 136, potassium of 4.7, chloride 97, carbon dioxide 33, BUN 32, creatinine 1.41. Liver function tests were unremarkable at admission apart from slight elevation of alkaline phosphatase at 107. The patient's iron level was 17, TIBC of 293, iron saturation of 6, percent transferrin of 209, ferritin of 14.5. The patient' s troponin was 0.03 at admission. The patient's ammonia level was [address] of abdomen and pelvis obtained on 05/10/18 impression: "[id number] ascites, increased volume compared to prior study with apparent loculation. Cardiomegaly. Small right-sided pleural effusion with loculations." Portable chest x-ray obtained on admission: "Marked pulmonary vascular congestion and small pleural effusions." Transthoracic echocardiogram obtained on 05/13/18, showed no significant changes compared with previous studies from October 2017 with mild concentric LVH with EF of 55 to 65% with abnormal ventricular wall motion consistent with right ventricular pacemaker. There was mild mitral regurgitation and mild tricuspid regurgitation, and evidence of [id number] pulmonary hypertension. CONSULTATIONS DURING THE HOSPITAL STAY: Included palliative care with Dr. Estella Atwood. HOSPITALIZATION COURSE: Fer Pratt is a 57-year-old male, who was diagnosed with ascites due to right-sided heart failure in January of 2018 when he had paracentesis obtained and his SAAG gradient was 1.2 indicating heart failure. He also had cytology, which showed inflammatory cells. The patient was hospitalized once again in March of 2018, at this time for GI bleed which thought to be likely due to hemorrhoidal bleed, although his colonoscopy also showed the polyp. The patient was seen at Dr. German's office at the beginning of April of 2018 for increase of abdominal girth and shortness of breath. At this point, he was noted to be in exacerbation of his chronic CHF and his Lasix was supposed to be increased to double the dose from 20 to 40 mg daily. Despite that, the patient does not recall to have any medication changes done at this visit and he has not been taking increased Lasix. He presented to the hospital on 05/10/18 complaining of not being able to breathe and his abdomen being large. He was noted to have once again moderate ascites and CHF. Initially, his Xarelto was briefly stopped in consideration of paracentesis. The patient's case was discussed with the teasel gig operator butcher scullion during the patient's hospital stay. The patient had already diagnosis of ascites due to right-sided heart failure and there was no need for diagnostic paracentesis. He did not need to have a therapeutic paracentesis performed since with intravenous Lasix, his ascites decreased significantly. The patient diuresed from a weight of 220 pounds to 198 pounds by the time of discharge. Unfortunately, he required oxygen during his hospital stay and he still continues to have hypoxemic respiratory failure and requires oxygen at home at 2 L which is new for him. The patient was advised and offered a longer hospital stay to take off some more fluid but he requested to go home. Please also note that the patient was mildly hyperkalemic and has history of hyperkalemia. Due to that, his lisinopril and Aldactone was held. The patient's creatinine at admission was 1.68, by the time of discharge was 1.41, and it increased the more he was diuresed. At discharge, the patient is recommended to check his weights on daily basis. His discharge weight is 198 pounds and 9 ounces. If his weight increases over 202 pounds, he is to call his primary care provider for further advice. His Lasix was increased to 80 mg daily. He was set up with Social Work and visiting nurses at discharge. He also has an appointment with the primary care provider on 05/19/18 at 10:20 a.m. He is to use CPAP at night and oxygen continuously during the daytime. Please also note that the patient's understanding of his condition and his disease is very poor and he will require assistance almost on a daily basis to monitor his weight and his diet and his medications. PHYSICAL EXAMINATION: At the time of discharge, blood pressure 128/72, heart rate of 70 and regular, respiratory rate 18, oxygen saturation 100% on 2 L of oxygen via nasal cannula, temperature 97.4. General: The patient is a very pleasant 57-year- old male in no acute distress. The patient is alert, awake, and oriented x3. HEENT: Head: Atraumatic, normocephalic. Eyes: Pupils are equal, reactive to light and accommodation. Oropharynx is clear. Mucosa moist. Neck: Supple. No JVD. No bruits bilaterally. Cardiovascular: Irregularly irregular rhythm. No murmur. Respiratory: Fine bibasilar crackles , otherwise, clear. Abdomen: Soft, ascites noted, nontender. Bowel sounds are present in all 4 quadrants. Extremities: There is +2 pitting pedal edema bilaterally. Pulses are +2 bilaterally. There is no clubbing or cyanosis. On neuro evaluation, speech is clear. Cranial nerves II through XII grossly intact. Motor strength is 5/5 bilaterally. Please note that this is a short summary of the patient's complicated hospital stay. Please refer to further medical records for details. TIME SPENT: Approximately 45 minutes was spent on the patient's discharge. [id number]/CPS #: [id number] MTDD
== END 2018-05-14 15:10 | disposition home health service (06) | DRG 291 ==
LOC: ED 19:01 → MEDTELE 22:09
PROVIDERS: ADMIT Internal Medicine; ATTEND Internal Medicine
DX: I13.0 Hypertensive heart and chronic kidney disease with heart failure and stage 1 through stage 4 chronic kidney disease, or unspecified chronic kidney disease (principal); J96.21 Acute and chronic respiratory failure with hypoxia; I50.43 Acute on chronic combined systolic (congestive) and diastolic (congestive) heart failure; R18.8 Other ascites; N17.9 Acute kidney failure, unspecified; I47.2 Ventricular tachycardia; I25.10 Atherosclerotic heart disease of native coronary artery without angina pectoris; E78.00 Pure hypercholesterolemia, unspecified; J44.9 Chronic obstructive pulmonary disease, unspecified; K21.9 Gastro-esophageal reflux disease without esophagitis; M19.042 Primary osteoarthritis, left hand; M19.041 Primary osteoarthritis, right hand; M19.072 Primary osteoarthritis, left ankle and foot; M19.071 Primary osteoarthritis, right ankle and foot; F32.9 Major depressive disorder, single episode, unspecified; I27.20 Pulmonary hypertension, unspecified; I50.810 Right heart failure, unspecified; E87.5 Hyperkalemia; I48.2 Chronic atrial fibrillation; G47.33 Obstructive sleep apnea (adult) (pediatric); E60 Dietary zinc deficiency; I08.1 Rheumatic disorders of both mitral and tricuspid valves; K64.8 Other hemorrhoids; E11.22 Type 2 diabetes mellitus with diabetic chronic kidney disease; D50.9 Iron deficiency anemia, unspecified; N18.3 Chronic kidney disease, stage 3 (moderate); Z79.82 Long term (current) use of aspirin; Z95.5 Presence of coronary angioplasty implant and graft; Z95.810 Presence of automatic (implantable) cardiac defibrillator; Z91.041 Radiographic dye allergy status; Z91.013 Allergy to seafood; Z90.89 Acquired absence of other organs; Z87.891 Personal history of nicotine dependence; Z87.442 Personal history of urinary calculi; Z82.49 Family history of ischemic heart disease and other diseases of the circulatory system; Z99.81 Dependence on supplemental oxygen; Z79.01 Long term (current) use of anticoagulants; Z84.1 Family history of disorders of kidney and ureter; Z51.5 Encounter for palliative care
CPT/HCPCS: 36415; 71045; 74176; 80048; 80053; 81003; 81015; 82140; 82728; 83540; 83550; 83735; 83880; 84484; 85025; 85027; 85610; 85730; 86140; 87086; 93005; 93306; 94640; 99284; A9270-GY; C8929; G8978-GP-CI; G8979-GP-CI; G8980-GP-CI; G8987-GO-CI; G8988-GO-CI; G8989-GO-CI; J1940; J3475

== ENCOUNTER 2018-06-01 10:09 | Inpatient (IN) | payer MEDICARE, MEDICAID ==
[2018-06-01] MEDS ORDERED: Ondansetron INJ* 2 MG/ML VIAL IV ONE (10:14)
[2018-06-01] MEDS ORDERED: Bumetanide IV* 0.25 MG/ML 4 ML VIAL SLOW PUSH ONE (10:15)
--- NOTE | 2018-06-01 10:20 | ED ---
GI/ HPI - HPI Summary HPI Summary: This pt is a 57 y/o male presenting to [facility] via EMS for nausea, vomiting, and diarrhea since 2 days ago. Pt reports that he felt well before this weekend. EMS states pt has had diarrhea and vomiting for the whole weekend. Per EMS pt has had a lot of ascites over the weekend and has had increased abd distension. The last time pt had vomiting was at 0500 this morning. EMS notes pt has hx of ascites, liver failure, HTN, COPD, type 2 DM, afib. Vital signs per EMS [employer], BP 152/80 and pulse of 90 and irregular. Pt reports he has had problems with ascites in the past and has had fluid taken out with needles. He states he tries to take his medications but "it goes back right out." He reports abd pain , nausea, vomiting, diarrhea, swelling in LE, and difficulty taking a breath this morning. Denies fever. He denies recent antibiotics in the past couple of months. Pt's medications include diuretics. At baseline pt uses 2L of O2 at home. Allergies include dye. - History of Current Complaint Stated Complaint: GI ISSUES PER EMS Hx Obtained From: Patient Onset/Duration: Started Days Ago, Still Present Timing: Lasting Days Severity: Moderate Location of Pain: Diffuse Associated Signs and Symptoms: Positive: Nausea, Vomiting, Diarrhea, Abdominal Pain, Other: - POS: SOB, swelling in LE. Negative: Fever, Chest Pain Aggravating Factor(s): Nothing Alleviating Factor(s): Nothing - Additional Pertinent History Primary Care Physician: [id number] - Allergy/Home Medications Allergies/Adverse Reactions: Allergies Allergy/AdvReac Type Severity Reaction Status Date / Time Iodinated Contrast- Oral and Allergy Unknown Verified 06/01/18 10:16 IV Dye Reaction Details shellfish derived Allergy Unknown Verified 06/01/18 10:16 Reaction Details Home Medications: Home Medications Bumetanide TAB* [Bumex 2 MG TAB*] 2 mg PO DAILY 06/01/18 [History Confirmed ] PMH/Surg Hx/FS Hx/Imm Hx Endocrine/Hematology History: Reports: Hx Diabetes Denies: Hx Anticoagulant Therapy, Hx Blood Disorders, Hx Blood Transfusions, Hx Bone Marrow Disease, Hx Systemic Lupus Erythematosus, Hx Sickle Cell Disease , Hx Thyroid Disease, Hx Anemia, Hx Unexplained Bleeding, Other Endocrine/ Hematological Disorders Cardiovascular History: Reports: Hx Angina, Hx Angioplasty, Hx Atrial Fibrillation, Hx Auto Implanted Cardiovert Defib, Hx Congestive Heart Failure, Hx Coronary Artery Disease, Hx Hypercholesterolemia, Hx Hypertension, Hx Pacemaker/ICD - 2007 Denies: Hx Aneurysm, Hx Cardiac Arrest, Hx Cardiomegaly, Hx Congenital Heart Disease, Hx Deep Vein Thrombosis, Hx Embolism, Hx Hypotension, Hx Myocardial Infarction, Hx Peripheral Vascular Disease, Hx Rheumatic Fever, Hx Syncope, Hx Valvular Heart Disease, Other Cardiovascular Problems/Disorders Respiratory History: Reports: Hx 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, Hx Chronic Obstructive Pulmonary Disease (COPD), Hx Sleep Apnea Denies: Hx Chronic Bronchitis, Hx Cystic Fibrosis, Hx Lung Cancer, Hx Pleural Effusion, Hx Pneumonia, Hx Pulmonary Edema, Hx Pulmonary Embolism, Hx Seasonal Allergies, Other Respiratory Problems/Disorders GI History: Reports: Hx Gastroesophageal Reflux Disease Denies: Hx Cirrhosis, Hx Crohn's Disease, Hx Diverticulosis, Hx Gall Bladder Disease, Hx Gastrointestinal Bleed, Hx Hiatal Hernia, Hx Irritable Bowel, Hx Jaundice, Hx Obstructive Bowel, Hx Ileostomy, Hx Pyloric Stenosis, Hx Ulcer, Other GI Disorders History: Reports: Hx Kidney Stones - LEFT Denies: Hx Acute Renal Failure, Hx Benign Prostatic Hyperplasia, Hx Chronic Renal Failure, Hx Dialysis, Hx Kidney Infection, Hx Renal Disease, Other Problems/Disorders Musculoskeletal History: Reports: Hx Arthritis - BILATERAL HANDS AND LEGS Denies: Hx Back Problems, Hx Bursitis, Hx Congenital Bone Abnormalities, Hx Fibromyalgia, Hx Gout, Hx Orthopedic Injury, Hx Osteoporosis, Hx Scoliosis, Hx Tendonitis, Other Musculoskeletal History Sensory History: Denies: Hx Cataracts, Hx Contacts or Glasses, Hx Eye Injury, Hx Glaucoma, Hx Deafness, Hx Hearing Aid, Hx Hearing Problem Opthamlomology History: Denies: Hx Cataracts, Hx Contacts or Glasses, Hx Eye Injury, Hx Glaucoma Neurological History: Denies: Hx Dementia, Hx Headaches, Hx Migraine, Hx Seizures, Hx Transient Ischemic Attacks (TIA), Other Neuro Impairments/Disorders Psychiatric History: Reports: Hx Depression Denies: Hx Anxiety, Hx Attention Deficit Hyperactivity Disorder, Hx Eating Disorder, Hx Panic Disorder, Hx Post Traumatic Stress Disorder, Hx Inpatient Treatment, Hx Community Mental Health Tx, Hx Schizophrenia, Hx Bipolar Disorder , Hx Suicide Attempt, Hx of Violent Episodes Against Others, Hx Substance Abuse , Other Psychiatric Issues/Disorders - Surgical History Surgery Procedure, Year, and Place: PACEM[place] [facility] [place]. [place]ENDECTOMY [facility] [place]. MULTIPLE CYSTO, L STENT, L ESWL PROCEDURES [facility] [place]. CARDIAC CATH X3 2009, 2016 Hx Anesthesia Reactions: No - Immunization History Date of Tetanus Vaccine: Unknown Infectious Disease History: Denies: Hx Clostridium Difficile, Hx Hepatitis, Hx Human Immunodeficiency Virus (HIV), Hx of Known/Suspected MRSA, Hx Shingles, Hx Tuberculosis - Family History Known Family History: Positive: Cardiac Disease, Hypertension - Social History Alcohol Use: None Alcohol Amount: 2-3 PER DAY, former use Hx Substance Use: No Substance Use Type: Reports: None Hx Tobacco Use: Yes Smoking Status (MU): Former Smoker Type: Cigarettes Amount Used/How Often: 2 PACKS A DAY Length of Time of Smoking/Using Tobacco: about 20 years,not sure Have You Smoked in the Last Year: No Review of Systems Negative: Fever Positive: Shortness Of Breath Gastrointestinal: Other - POS: abd distension Positive: Abdominal Pain, Vomiting, Diarrhea, Nausea Positive: Edema - in LE All Other Systems Reviewed And Are Negative: Yes Physical Exam - Summary Physical Exam Summary: Appearance: Well-appearing, Well-nourished, lying in bed comfortably Skin: Warm, dry, no obvious rash Eyes: sclera anicteric, no conjunctival pallor ENT: mucous membranes moist, pharynx appears normal Neck: Supple, nontender Respiratory: Clear to auscultation, slightly labored Cardiovascular: Normal S1, S2. No murmurs. Normal distal pulses in tibial and radial bilaterally. Abdomen: abdomen with large amount of ascites. Abdomen is tenser but not tender. No bowel sounds. Musculoskeletal: Strength/ROM Intact. Fairly marked LE pitting edema. Neurological: A&Ox3, awake and alert, mentation is normal, speech is fluent and appropriate Psychiatric: affect is normal, does not appear anxious or depressed Triage Information Reviewed: Yes Vital Signs On Initial Exam: Initial Vitals Temp Pulse Resp BP Pulse Ox 98.2 F 85 20 143/88 96 06/01/18 10:10 06/01/18 10:10 06/01/18 10:10 06/01/18 10:10 06/01/18 10:10 Vital Signs Reviewed: Yes Procedures - Procedure Summary Procedure Summary: Procedure: therapeutic paracentesis Indication: tense ascites causing shortness of breath Procedure: After standard sterile prep and drape, an area between the pubis and umbilicus was anesthetized with xylocaine. Catheter over needle introducer was used to enter the peritoneum using Ztrack technique, aspirating typical appearing clear dulce maria fluid. Needle was then withdrawn and approx 2 l of fluid was removed via vacuum bottle. Patient tolerated procedure well, without any complications. Diagnostics - Laboratory Result Diagrams: 06/01/18 10:20 06/01/18 10:20 Lab Statement: Any lab studies that have been ordered have been reviewed, and results considered in the medical decision making process. - Radiology Chest XR Radiology Interpretation Completed By: Radiologist Summary of Radiographic Findings: IMPRESSION: 1. Cardiomegaly. 2. Stable small right pleural effusion. 3. Low lung volumes, with bibasilar atelectasis versus consolidation. Dr. Bennett has reviewed this report. - EKG 10:26 Cardiac Rate: NL - at 86 bpm EKG Rhythm: Atrial Fibrillation Summary of EKG Findings: Inferior infarct, old. Anterior infarct, old. Re-Evaluation - Re-Evaluation First Eval Re-Evaluation Time: 11:34 Comment: Dr. Bennett performing paracentesis. GIGU Course/Dx - Course Assessment/Plan: Pt is a 57 y/o male who presents to the ED via EMS for nausea, vomiting, and diarrhea since 2 days ago. Pt reports that he felt well before this weekend. EMS states pt has had diarrhea and vomiting for the whole weekend. Per EMS pt has had a lot of ascites over the weekend and has had increased abd distension. The last time pt had vomiting was at 0500 this morning. Test results remarkable for hemoglobin of 8.2, hematocrit of 27, chloride of 97, carbon dioxide of 35, creatinine of 1.32, glucose of 143, troponin of 0.05. Chest XR shows 1. Cardiomegaly. 2. Stable small right pleural effusion. 3. Low lung volumes, with bibasilar atelectasis versus consolidation. In the ED course the pt received Zofran, Bumex. Therapeutic paracentesis was performed by Dr. Bennett and 2L of fluid was removed. Discussed the case with Dr. Stoll, hospitalist, who accepted the pt for admission. - Diagnoses Provider Diagnoses: Ascites, Acute exacerbation of CHF (congestive heart failure), Nausea and vomiting - Physician Notifications Discussed Care Of Patient With: Amiat Stoll - hospitalist Time Discussed With Above Provider: 11:52 Instructed by Provider To: Admit As Inpatient Discharge - Sign-Out/Discharge Documenting (check all that apply): Patient Departure - Admit to [facility] [place] Patient Received Moderate/Deep Sedation with Procedure: No - Discharge Plan Condition: Stable Disposition: ADMITTED TO [facility] Referrals: Erasmo Hill MD [Primary Care Provider] - - Billing Disposition and Condition Condition: STABLE Disposition: Admitted to [facility] - Attestation Statements Document Initiated by Beni: Yes Documenting Scribe: Amita Aguilera Provider For Whom Beni is Documenting (Include Credential): Jl Bennett MD Scribe Attestation: Amita Griffiths, scribed for Jl Bennett MD on 06/01/18 at 1411. Scribe Documentation Reviewed: Yes Provider Attestation: The documentation as recorded by the Amita dove accurately reflects the service I personally performed and the decisions made by , Jl Bennett MD Status of Scribe Document: Viewed
[2018-06-01 10:53] LABS: ABS Basophils 0.1 10^3/ul (0-0.2); ABS Eosinophils 0.2 10^3/ul (0-0.6); ABS Lymphocytes 0.8 10^3/ul (1.0-4.8); ABS Monocytes 0.7 10^3/ul (0-0.8); ABS Neutrophils 5.7 10^3/ul (1.5-7.7); ABS Nucleated RBC 0 10^3/ul; Albumin 3.5 g/dL (3.2-5.2); Albumin/Globulin Ratio 1.2 (1-3); BUN/Creatinine Ratio 22.7 (8-20); Calcium 8.7 mg/dL (8.6-10.3); EGFR African American 67.6 (>60); EGFR Non-African American 55.9 (>60); Eosinophil % 2.5 %; Globulin 2.9 g/dL (2-4); Hematocrit 27 % (36-46); Hemoglobin 8.2 g/dL (14.0-18.0); Mean Corpuscular HGB Conc 30 g/dL (31-36); Mean Corpuscular Hemoglobin 21 pg (27-31); Mean Corpuscular Volume 70 fL (80-94); Mean Platelet Volume 8.3 fL (7.4-10.4); Nucleated Red Blood Cells % 0; Platelet Count 256 10^3/uL (150-450); Potassium 4.9 mmol/L (3.5-5.0); Red Blood Count 3.91 10^6 /uL (4.18-5.48); Red Cell Distribution Width 17 % (10.5-15); Total Bilirubin 0.6 mg/dL (0.2-1.0); Total Protein 6.4 g/dL (6.4-8.9); White Blood Count 7.5 10^3/uL (3.5-10.8)
[2018-06-01 10:58] LABS: Troponin I 0.05 ng/mL (<0.04)
[2018-06-01 11:02] LABS: INR 1.33 (0.77-1.02)
[2018-06-01 11:13] LABS: Microcytosis 2+
[2018-06-01 11:14] LABS: Polychromasia 1+
[2018-06-01] MEDS ORDERED: Nitro 2% OINT* (Nitroglycerin) 1 INCH/PAK PAK TOPICAL ONE (11:29)
[2018-06-01] MEDS ORDERED: Nitro 2% OINT* (Nitroglycerin) 1 INCH/PAK PAK ONE (11:31)
[2018-06-01] MEDS ORDERED: Acetaminophen TAB* 325 MG PO PRN (13:13)
[2018-06-01] MEDS ORDERED: Nitroglycerin TAB 0.4 MG* 0.4 MG TAB SL PRN (13:23)
[2018-06-01] MEDS ORDERED: Albuterol HFA INHALER* 8 gm MDI INH PRN (13:23)
[2018-06-01] MEDS ORDERED: Docusate CAP* 100 MG PO PRN (13:23)
[2018-06-01] MEDS: Aspirin EC TAB* 81 MG TAB.EC PO SCH (14:01)
[2018-06-01] MEDS: Atorvastatin* 80 MG TAB PO SCH (14:02)
[2018-06-01] MEDS: Spironolactone TAB* 25 MG PO SCH (14:02)
[2018-06-01] MEDS: Metoprolol Succinate XL TAB* 25 MG PO SCH (14:02)
[2018-06-01] MEDS ORDERED: Dextrose 50% Syringe 50 ML* 25 GM/50 ML SYRINGE IV PUSH PRN (14:14)
[2018-06-01 14:39] LABS: % Iron Saturation 6 % (15-55); Iron 18 ug/dL (50-212); Total Iron Binding Capacity 319 mcg/dL (250-450); Transferrin 228 mg/dL (203-362)
[2018-06-01 15:08] LABS: Body Fluid Source OTH
[2018-06-01 16:21] LABS: Body Fluid Mono 20 %
[2018-06-01] MEDS: Magnesium Oxide TAB* 400 MG PO SCH ×2 (16:25→20:50)
[2018-06-01] MEDS: Pantoprazole TAB * 40 MG TAB PO SCH (16:25)
[2018-06-01] MEDS: Diltiazem TAB* 30 MG PO SCH ×2 (16:26→20:50)
[2018-06-01] MEDS: Insulin LISPRO* 1 UNITS UNIT SUBCUT SCH (17:29)
[2018-06-01] MEDS: Rivaroxaban TAB(*) 20 MG TAB PO SCH (17:29)
--- NOTE | 2018-06-01 17:52 | HP ---
Amended report to enter cosigning physician. CC: Dr. Hill* HISTORY AND PHYSICAL: DATE OF ADMISSION: 06/01/18 PRIMARY CARE PROVIDER: Dr. Hill ATTENDING PHYSICIAN: Dr. Amita Stoll* (dictated by Cruz Seo NP) CHIEF COMPLAINT: 1. Nausea. 2. Vomiting. 3. Diarrhea. 4. Shortness of breath. 5. Swelling in lower extremities. HISTORY OF PRESENT ILLNESS: Mr. Pratt is a 57-year-old male with a past medical history significant for ascites, liver failure, hypertension, COPD, diabetes type 2, atrial fibrillation, who presents to the emergency department today via EMS due to nausea, vomiting, diarrhea x2 days. He reports he felt fine on Friday and Friday awoke vomiting. These symptoms continued through the weekend. In addition, he has noticed an increase in ascites over the weekend as evidenced by increase in abdominal distention. In addition her recently noted difficulty breathing this morning with lying flat. While in the emergency department, the patient was initially requiring 10 L via OxyMask to maintain oxygen saturation greater than 88%. Due to this, nitroglycerin paste was placed on his chest, paracentesis was completed at bedside and 2 L were drained, and the patient received 2 mg of Bumex IV. In addition, the patient had a chest x-ray which revealed cardiomegaly, stable small right pleural effusion, low lung volumes with basilar atelectasis versus consolidation. He also had an EKG which revealed atrial fibrillation with a rate of 86. Labs that we obtained while in the emergency room revealed microcytic anemia which is near the patient's baseline but slightly below. In addition, the patient was noted to have slightly elevated troponin at 0.05 and a slightly elevated creatinine at 1.32, but this is below the patient's baseline from previous admissions. Given the patient's presentation and evaluation finding, hospitalists were asked to consult for admission. This caption writer assessed the patient at bedside, who verified information regarding his presentation to the emergency department. He also added that he has been unable to take any of his medications for approximately 3 days with the last dose being on 05/29/18, due to vomiting. He also reports improvement in symptoms of shortness of breath since interventions here in the emergency department. The patient is currently on 2 L nasal cannula and oxygen saturation is within normal limits. It should be noted that the patient's baseline oxygen requirement at home is 2 L nasal cannula. PAST MEDICAL HISTORY: 1. History of C. diff with reduced ejection fraction, EF 50% to 55%. 2. Iron deficiency anemia with recent GI bleed, presumed to be hemorrhoidal noted during the patient's hospital stay in March 2018. 3. Fmmej-hy-[id number] renal insufficiency due to decreased renal perfusion secondary to CHF. 4. Type 2 diabetes. 5. COPD. 6. Atrial fibrillation. 7. Sleep apnea, uses CPAP. 8. Ascites due to right-sided heart failure documented with SAAG gradient of 1.2 in January 2018. 9. History of moderate pulmonary hypertension. 10. Zinc deficiency. 11. Vitamin D deficiency. 12. History of alcohol abuse. 13. Status post 3 cardiac stents. 14. Status post ICD placement. PAST SURGICAL HISTORY: 1. Cardiac catheterization with 3 stent placement. 2. ICD placement. 3. Appendectomy. 4. Cystoscopy with stent placement. HOME MEDICATIONS: 1. Bumex 2 mg p.o. daily. 2. Zinc 220 mg p.o. daily. 3. Mag oxide 400 mg p.o. t.i.d. 4. Symbicort 2 puffs inhalations b.i.d., this should be 80/4.5. 5. Thiamine 100 mg p.o. daily. 6. Janumet 1 tab p.o. b.i.d. 7. Xarelto 20 mg p.o. daily. 8. Nitroglycerin 0.4 mg sublingual q.5 minutes p.r.n. 9. Lactulose 30 mL p.o. b.i.d. 10. Colace 100 mg p.o. b.i.d. p.r.n. 11. Cardizem 30 mg p.o. b.i.d. 12. Aspirin 81 mg p.o. daily. 13. Maalox 30 mL p.o. q.6 hours p.r.n. constipation. 14. Omeprazole 20 mg p.o. daily. 15. Metoprolol succinate XL 25 mg p.o. daily. 16. Gabapentin 300 mg p.o. b.i.d. 17. Zyrtec 10 mg p.o. daily. 18. Atorvastatin 80 mg p.o. daily. 19. Albuterol 1 puff inhalation b.i.d. p.r.n. 20. Acetaminophen 1000 mg p.o. q.6 hours p.r.n. ALLERGIES: IODINE CONTRAST, SHELLFISH. FAMILY HISTORY: The patient's father is alive and has heart failure. The patient's mother with CKD and heart disease. The patient has several siblings, all of whom are healthy. SOCIAL HISTORY: The patient quit smoking approximately 15 years ago, the patient is unable to verify quantity. The patient quit drinking approximately 15 years ago. The patient denies drug use. The patient is disabled. The patient lives alone. The patient uses a walker for ambulation. The patient has VNS services twice a week. The patient would like the surrogate decision maker to be his brother, Long Fitzgerald. REVIEW OF SYSTEMS: Constitutional: No fevers, no anorexia. Cardiac: No chest pain. No palpitations. The patient reports edema. Respiratory: No cough, no hemoptysis. The patient reports shortness of breath when lying flat or ambulating. GI: The patient reports nausea, vomiting, diarrhea, abdominal pain. The patient reports abdominal pain has resolved with status post paracentesis in ED. : No gross hematuria, no dysuria. Neuro: No focal weakness or sensory loss. Eyes: No visual complaints. ENT: No sore throat, no difficulty swallowing. Musculoskeletal: No arthralgias or myalgias. Skin: No rashes or lesions. Psych: No psychosis or anxiety. PHYSICAL EXAMINATION GENERAL: Mr. Pratt is a 57-year-old male who is lying on the ED stretcher. He is in no acute distress. Appears stated age. VITAL SIGNS: Temp 98.0, HR 88, RR 21, BP 126/91, O2 saturation 97% on 2 L. HEENT: EOMs intact. PERRLA. Oral mucosa is moist without lesions. Posterior pharynx is clear. NECK: Full range of motion. No lymphadenopathy. RESPIRATORY: Symmetrical chest expansion. No accessory muscle use. Lungs are clear to auscultation. No rhonchi, wheezes, or rales. CARDIAC: S1, S2 present. Irregular rhythm. No murmurs, rubs, or gallops. No JVD. ABDOMEN: Soft, nontender to palpation. Bowel sounds normoactive throughout. The patient's abdomen is mildly distended. EXTREMITIES: Skin is warm and well perfused bilaterally. The patient has 2+ pitting edema to bilateral lower extremities. No clubbing or cyanosis. Pedal pulses 2+ bilaterally. MUSCULOSKELETAL: Full range of motion. No pain or deformities. NEURO: Awake, alert, and oriented x4. Motor strength is 5/5 in upper and lower extremities. SKIN: The patient has healed abrasions on bilateral shins. Remainder of skin is grossly intact. DIAGNOSTIC STUDIES/LAB DATA: WBC 7.5, hemoglobin 8.2, hematocrit 27, MCV 70, MCH 21, INR 133. Sodium 135, potassium 4.5, chloride 97, carbon dioxide 35, BUN 30, creatinine 1.32, glucose 143. Alk phos 111, AST 14, ALT 11, troponin 0.05. Chest x-ray: Impression: Cardiomegaly. Stable small right pleural effusion. Low lung volumes, bibasilar atelectasis versus consolidation. ASSESSMENT AND PLAN: Mr. Pratt is a 57-year-old male with the past medical history significant for ascites, liver failure, hypertension, chronic obstructive pulmonary disease, type 2 diabetes, atrial fibrillation; who presents to the emergency department today and was found to be hypoxic requiring supplemental O2 and also having increase in ascites, therefore, he will be admitted 1. Ascites: As mentioned above, the patient presented to the emergency room, was found to have significant ascites and was symptomatic. The patient underwent a bedside paracentesis while in the emergency department and had 2 L drained. Symptoms are improving after this intervention. I suspect this is secondary due to the patient missing multiple days of his medication, therefore , the patient will receive all of his morning meds now and will be continued as normal tomorrow. The patient will resume all his home medications with the addition of spironolactone which has been held previously, but given the patient 's normal potassium and being an inpatient, I believe it is safe to start it and recheck potassium. It should also be noted that the patient received 2 mg IV Bumex while in the emergency department. We will continue Bumex tomorrow. The patient has responded well. In addition, it was noted from an outpatient note with Cardiology on 05/28/18 that the patient was to stop Lasix and start Bumex 2 mg for 3 days and then reassess with the possibility of decreasing to 1 mg daily. The patient have daily weight. The patient will have strict ins and outs. The patient recently had a CT of his abdomen on 05/10/18 which revealed [id number] ascites, increased volume compared to prior study with small right pleural effusions with loculations. Given the patient's current improvement, I do not think we need to repeat any imaging at this time, but if he fails to continue to improve or has any new or worsening symptoms, I would recommend imaging. 2. Elevated troponin: The patient's troponin was elevated at 0.05 upon presentation to the emergency room. I suspect this is secondary to demand. The patient has no chest pain, palpitations and is now free from shortness of breath after paracentesis and Bumex. Either way, we will trend the patient's troponins and repeat an EKG in the morning. 3. Congestive heart failure: The patient has a history of congestive heart failure with reduced ejection fraction. Last echocardiogram was obtained and revealed ejection fraction of 50% to 55%. Since the patient is improving with Bumex and paracentesis and he has not experienced any other cardiac symptoms, I do not think we need to repeat the echocardiogram at this time. But once again, if things change, I would recommend repeating his echocardiogram. 4. Iron deficiency anemia: As mentioned above, the patient has a history of gastrointestinal bleed, presumed due to hemorrhoids during hospital stay in March 2018. The patient is currently microcytic anemic slightly below his baseline. I suspect this slight decrease could be delusional given the patient' s fluid volume overload, but just in case, we will repeat an hemoglobin and hematocrit tomorrow and get a stool for guaiac. We will order iron studies. 5. Chronic renal insufficiency: The patient carries a history of chronic renal insufficiency with a creatinine documented as high as 4.90 on 01/27/18. The patient's creatinine is currently 1.32 which is below his baseline. We will continue the patient's medications as same and monitor his renal function. 6. Diabetes type 2: The patient is on Janumet at home which we will hold and provide the patient with sliding scale insulin and consistent carb and low- sodium diet. 7. History of chronic atrial fibrillation: The patient has a history of atrial fibrillation. He is on rate-controlling agents and he is anticoagulated. We will continue these medications as same. We will place the patient on telemetry. 8. History of chronic obstructive pulmonary disease: We will continue the patient's home inhalers. 9. Obstructive sleep apnea: We will continue the patient's CPAP. If he did not bring it with him we will provide him with one from the hospital. 10. Pulmonary hypertension: This has been documented on previous echocardiograms, therefore, we will continue the patient's home medications the same. 11. Zinc deficiency: We will continue the patient's zinc supplementation. 12. Vitamin D deficiency: We will continue the patient's home medications as same. 13. History of alcohol abuse: The patient denies drinking currently, therefore , does not require WAM. 14. Status post 3 cardiac stents: I will continue the patient's home medications as same. 15. Status post implantable cardioverter defibrillator placement in the past: The patient will be placed on telemetry. The patient had a recent interrogation which can be found in [employer]. 16. Fluids, electrolytes, nutrition: The patient will be provided with low- salt consistent carb diet. 17. Code status: Full. 18. DVT prophylaxis: The patient will continue on his Xarelto. He is noted to be high risk. 19. Disposition: The patient will admitted to the medical floor and have telemonitoring. I suspect the patient will be in the hospital 2 to 3 days. I have entered a social work order due to noncompliance and difficulty remembering to take pills. It should also be noted that Dr. Atwood from Palliative Care was involved on the patient's previous admissions in April of 2018. TIME SPENT: Approximately 65 minutes were spent on this admission, greater than half time spent [id number] with the patient and caregiver, obtaining my history and performing my physical exam, and reviewing my plan of care. This case has been reviewed with my attending, Dr. Stoll, who agrees with my plan of care. CRUZ SEO, DANIEL [id number]/[facility] #: [id number] ALBINO
[2018-06-01] MEDS: Gabapentin CAP(*) 300 MG PO SCH (20:50)
[2018-06-01] MEDS: Mometasone/Formoter 100/5 MDI INH SCH (20:59)
[2018-06-02] MEDS: Insulin LISPRO* 1 UNITS UNIT SUBCUT SCH ×4 (08:31→21:03)
[2018-06-02] MEDS: Bumetanide TAB* 2 MG PO SCH (08:33)
[2018-06-02] MEDS: Gabapentin CAP(*) 300 MG PO SCH ×2 (08:33→21:02)
[2018-06-02] MEDS: Atorvastatin* 80 MG TAB PO SCH (08:33)
[2018-06-02] MEDS: Zinc Sulfate CAP* 220 MG PO SCH (08:33)
[2018-06-02] MEDS: Thiamine TAB* 100 MG TAB PO SCH (08:33)
[2018-06-02] MEDS: Magnesium Oxide TAB* 400 MG PO SCH ×3 (08:33→21:03)
[2018-06-02] MEDS: Cetirizine* 10 MG TAB PO SCH (08:33)
[2018-06-02] MEDS: Pantoprazole TAB * 40 MG TAB PO SCH (08:33)
[2018-06-02] MEDS: Diltiazem TAB* 30 MG PO SCH ×2 (08:33→21:03)
[2018-06-02] MEDS: Spironolactone TAB* 25 MG PO SCH (08:34)
[2018-06-02] MEDS: Aspirin EC TAB* 81 MG TAB.EC PO SCH (08:34)
[2018-06-02] MEDS: Metoprolol Succinate XL TAB* 25 MG PO SCH (08:34)
[2018-06-02] MEDS: Mometasone/Formoter 100/5 MDI INH SCH ×2 (09:04→19:41)
[2018-06-02 15:21] LABS: Lactate Dehydrogenase, BF 81 U/L
[2018-06-02 16:36] LABS: Body Fluid Bilirubin 0.25 mg/dL; Fluid Type PARACENTESIS
[2018-06-02] MEDS: Rivaroxaban TAB(*) 20 MG TAB PO SCH (17:06)
--- NOTE | 2018-06-02 20:24 | PN ---
Subjective Date of Service: 06/02/18 Interval History: Pt seen and examined. Meds and labs reviewed. CC: N/V/D ROS: Denied HARO/dizziness, F/C, CP, SOB, increased cough, sputum production, abd pain, constipation, dysuria, myalgias, arthralgias, throat pain, and new skin lesions. The rest of the 14 point ROS are unremarkable. PHYSICAL EXAM: GEN APPEARANCE: Awake, not in acute distress HEENT: NC/AT, PERRLA, moist oral mucosa, (-) throat erythema NECK: Soft, supple, (-) cervical LAD, (-)JVD HEART: S1S2 WNL, RRR, No MRG CHEST: CTA, BL, GAE, No W/R/R ABD: Soft, distended/NT, NABS 4x Q EXT: No C/C/2-3+ edema, BLLE SKIN: Warm to touch PSYCH: No active psychosis, hallucinations, depression, SI/HI Objective Active Medications: Acetaminophen (Tylenol Tab*) 650 mg PO Q4H PRN PRN Reason: FEVER/PAIN Last Admin: 06/02/18 12:35 Dose: 650 mg Albuterol (Ventolin Hfa Inhaler*) 1 puff INH BID PRN PRN Reason: WHEEZING Aspirin (Aspirin Ec Tab*) 81 mg PO DAILY [facility] Last Admin: 06/02/18 08:34 Dose: 81 mg Atorvastatin Calcium (Lipitor*) 80 mg PO DAILY [facility] Last Admin: 06/02/18 08:33 Dose: 80 mg Bumetanide (Bumex Tab*) 2 mg PO DAILY [facility] Last Admin: 06/02/18 08:33 Dose: 2 mg Cetirizine HCl (Zyrtec*) 10 mg PO DAILY [facility]; Protocol Last Admin: 06/02/18 08:33 Dose: 10 mg Dextrose (D50w Syringe 50 Ml*) 12.5 gm IV PUSH .FOR FS < 60 - SS PRN PRN Reason: FS < 60 Diltiazem HCl (Cardizem Tab*) 30 mg PO BID [facility] Last Admin: 06/02/18 08:33 Dose: 30 mg Docusate Sodium (Colace Cap*) 100 mg PO BID PRN PRN Reason: CONSTIPATION Last Admin: 06/01/18 14:02 Dose: 100 mg Gabapentin (Neurontin Cap(*)) 300 mg PO BID [facility] Last Admin: 06/02/18 08:33 Dose: 300 mg Insulin Human Lispro (Humalog*) 0 units SUBCUT AC [facility]; Protocol Last Admin: 06/02/18 17:06 Dose: 9 units Lactulose (Lactulose*) 30 ml PO BID [facility] Last Admin: 06/02/18 08:34 Dose: 30 ml Magnesium Oxide (Magox 400 Tab*) 400 mg PO TID [facility] Last Admin: 06/02/18 12:35 Dose: 400 mg Metoprolol Succinate (Toprol Xl Tab*) 25 mg PO DAILY [facility] Last Admin: 06/02/18 08:34 Dose: 25 mg Mometasone Furoate/Formoterol Fumar (Dulera 100/5 Mdi*) 2 puff INH BID [facility] Last Admin: 06/02/18 19:41 Dose: 2 puff Nitroglycerin (Nitroglycerin Tab 0.4 Mg*) 0.4 mg SL Q5M PRN PRN Reason: ANGINA Pantoprazole Sodium (Protonix Tab*) 40 mg PO DAILY [facility] Last Admin: 06/02/18 08:33 Dose: 40 mg Rivaroxaban (Xarelto(*)) 20 mg PO QPM [facility] Last Admin: 06/02/18 17:06 Dose: 20 mg Spironolactone (Aldactone Tab*) 25 mg PO DAILY [facility] Last Admin: 06/02/18 08:34 Dose: 25 mg Thiamine HCl (Vitamin B-1 Tab*) 100 mg PO DAILY [facility] Last Admin: 06/02/18 08:33 Dose: 100 mg Zinc Sulfate (Zinc-220 Cap*) 220 mg PO DAILY [facility] Last Admin: 06/02/18 08:33 Dose: 220 mg Vital Signs - 8 hr 06/02/18 19:41 Pulse Rate 84 Respiratory 16 Rate O2 Sat by Pulse 94 Oximetry Oxygen Devices in Use Now: Nasal Cannula Result Diagrams: 06/01/18 10:20 06/01/18 10:20 Microbiology and Other Data: Microbiology 06/01/18 12:30 Sterile Body Fluid Culture - Preliminary Paracentesis Fluid No Growth Day 1 Sterile Body Fluid Culture - Preliminary No Growth Day 1 06/01/18 12:30 Gram Stain - Final Body Fluid - Other Assess/Plan/Problems-Billing Assessment: - Patient Problems (1) Ascites Current Visit: No Status: Acute Code(s): R18.8 - OTHER ASCITES SNOMED Code (s): 135905516 Comment: -Thought to be due to CHF exacerbation likely precipitated by gastroenteritis like symptoms, where he mentioned he had been vomiting his pills and was unable to comply, likely leading to exacerbation -Continue current regimen; consider increasing diuretic needs if needed (2) Acute gastroenteritis Current Visit: Yes Status: Acute Code(s): K52.9 - NONINFECTIVE GASTROENTERITIS AND COLITIS, UNSPECIFIED SNOMED Code(s): 85237132 Comment: -Possible cause of N/V/D? -Will check stool studies as ordered (C. diff, lactoferrin, rotavirus, and culture) -Continue watchful waiting (3) Elevated troponin Current Visit: Yes Status: Acute Code(s): R74.8 - ABNORMAL LEVELS OF OTHER SERUM ENZYMES SNOMED Code(s): 247768680 Comment: -Only one time that it was found to be 0.05the rest were found normal -Likely due to CHF exacerbation described above (4) Congestive heart failure Current Visit: No Status: Acute Code(s): I50.9 - HEART FAILURE, UNSPECIFIED SNOMED Code(s): 00138357 Comment: Acute on chronic sytolic CHF. Echo on 03/27/18 EF 40% and severe pulm HTN and mod TR Cont daily Lasix (5) Diastolic HF (heart failure) Current Visit: No Status: Acute Code(s): I50.30 - UNSPECIFIED DIASTOLIC ( CONGESTIVE) HEART FAILURE SNOMED Code(s): 763352742 Comment: -Continue Low sodium diet -Please see above discussion (6) A-fib Current Visit: No Status: Acute Code(s): I48.91 - UNSPECIFIED ATRIAL FIBRILLATION SNOMED Code(s): 97358342 Comment: -Continue Diltiazem and Rivaroxaban (7) COPD (chronic obstructive pulmonary disease) Current Visit: Yes Status: Acute Code(s): J44.9 - CHRONIC OBSTRUCTIVE PULMONARY DISEASE, UNSPECIFIED SNOMED Code(s): 53354054 Comment: -Continue Dulera -Not in acute exacerbation (8) DVT prophylaxis Current Visit: No Status: Acute Code(s): UXP2240 - SNOMED Code(s): 744626257 Comment: -Pt on Xarelto Status and Disposition: -For PT eval
[2018-06-03] MEDS ORDERED: Morphine INJ* 2 MG/ML 1 ML SYRINGE (TWO MG - NEW SYRINGE VERSION) IV PRN (05:51)
[2018-06-03 08:45] LABS: ABS Basophils 0.1 10^3/ul (0-0.2); ABS Eosinophils 0.2 10^3/ul (0-0.6); ABS Lymphocytes 1.3 10^3/ul (1.0-4.8); ABS Neutrophils 8.6 10^3/ul (1.5-7.7); ABS Nucleated RBC 0 10^3/ul; Eosinophil % 2.1 %; Hematocrit 29 % (36-46); Hemoglobin 8.7 g/dL (14.0-18.0); Lymphocyte % 11.5 %; Mean Corpuscular HGB Conc 30 g/dL (31-36); Mean Corpuscular Hemoglobin 21 pg (27-31); Mean Corpuscular Volume 70 fL (80-94); Mean Platelet Volume 8.4 fL (7.4-10.4); Nucleated Red Blood Cells % 0; Platelet Count 306 10^3/uL (150-450); Red Blood Count 4.12 10^6 /uL (4.18-5.48); Red Cell Distribution Width 16 % (10.5-15); White Blood Count 11.2 10^3/uL (3.5-10.8)
[2018-06-03] MEDS: Zinc Sulfate CAP* 220 MG PO SCH (08:58)
[2018-06-03] MEDS: Bumetanide TAB* 2 MG PO SCH (08:58)
[2018-06-03] MEDS: Spironolactone TAB* 25 MG PO SCH (08:58)
[2018-06-03] MEDS: Metoprolol Succinate XL TAB* 25 MG PO SCH (08:58)
[2018-06-03] MEDS: Atorvastatin* 80 MG TAB PO SCH (08:58)
[2018-06-03] MEDS: Magnesium Oxide TAB* 400 MG PO SCH ×3 (08:59→20:14)
[2018-06-03] MEDS: Aspirin EC TAB* 81 MG TAB.EC PO SCH (08:59)
[2018-06-03] MEDS: Gabapentin CAP(*) 300 MG PO SCH (08:59)
[2018-06-03] MEDS: Thiamine TAB* 100 MG TAB PO SCH (09:00)
[2018-06-03] MEDS: Pantoprazole TAB * 40 MG TAB PO SCH (09:00)
[2018-06-03] MEDS: Cetirizine* 10 MG TAB PO SCH (09:01)
[2018-06-03] MEDS: Insulin LISPRO* 1 UNITS UNIT SUBCUT SCH ×4 (09:01→20:13)
[2018-06-03] MEDS: Diltiazem TAB* 30 MG PO SCH ×2 (09:01→20:14)
[2018-06-03 09:06] LABS: Albumin 3.6 g/dL (3.2-5.2); Albumin/Globulin Ratio 1.2 (1-3); Calcium 8.4 mg/dL (8.6-10.3); EGFR African American 48.2 (>60); EGFR Non-African American 39.9 (>60); HDL Cholesterol 29.5 mg/dL; Indirect Bilirubin 0.4 mg/dL (0.3-1.0); Total Bilirubin 0.5 mg/dL (0.2-1.0); Total Protein 6.6 g/dL (6.4-8.9)
[2018-06-03 09:09] LABS: Potassium 6.6 mmol/L (3.5-5.0)
[2018-06-03 09:18] LABS: TSH (Thyroid Stimulating Horm) 5.04 mcIU/mL (0.34-5.60)
[2018-06-03] MEDS: Mometasone/Formoter 100/5 MDI INH SCH ×2 (09:22→19:32)
[2018-06-03] MEDS ORDERED: Dextrose 50% Syringe 50 ML* 25 GM/50 ML SYRINGE IV PUSH ONE (09:28)
[2018-06-03] MEDS ORDERED: Furosemide IV* 10 MG/ML 2 ML VIAL (20 MG) IV ONE (09:28)
[2018-06-03] MEDS ORDERED: Insulin REGULAR(*) 1 UNITS UNIT IV PUSH ONE (09:28)
[2018-06-03 10:54] LABS: BUN/Creatinine Ratio 25.4 (8-20); Calcium 8.6 mg/dL (8.6-10.3); EGFR African American 49.5 (>60); EGFR Non-African American 40.9 (>60)
[2018-06-03 11:03] LABS: Potassium 6.3 mmol/L (3.5-5.0)
[2018-06-03] MEDS ORDERED: Ondansetron INJ* 2 MG/ML VIAL IV PRN (11:51)
--- NOTE | 2018-06-03 11:55 | PN ---
Subjective Date of Service: 06/03/18 Interval History: Patient admitted w/ CHF, volume overload about 36 hrs ago. Was restarted on spironolactone at that point. Today feels poorly, "something is wrong," but cannot say why. Has some nausea. Reports diarrhea, waiting for a sample to test for C diff. 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 Nurse reports he is somewhat vague and confused compared w/ baseline. Family History: Unchanged from Admission Social History: Unchanged from Admission Past Medical History: Unchanged from Admission Objective Active Medications: Acetaminophen (Tylenol Tab*) 650 mg PO Q4H PRN PRN Reason: FEVER/PAIN Last Admin: 06/02/18 12:35 Dose: 650 mg Albuterol (Ventolin Hfa Inhaler*) 1 puff INH BID PRN PRN Reason: WHEEZING Aspirin (Aspirin Ec Tab*) 81 mg PO DAILY [facility] Last Admin: 06/03/18 08:59 Dose: 81 mg Atorvastatin Calcium (Lipitor*) 80 mg PO DAILY [facility] Last Admin: 06/03/18 08:58 Dose: 80 mg Bumetanide (Bumex Tab*) 2 mg PO DAILY [facility] Last Admin: 06/03/18 08:58 Dose: 2 mg Cetirizine HCl (Zyrtec*) 10 mg PO DAILY [facility]; Protocol Last Admin: 06/03/18 09:01 Dose: 10 mg Dextrose (D50w Syringe 50 Ml*) 12.5 gm IV PUSH .FOR FS < 60 - SS PRN PRN Reason: FS < 60 Diltiazem HCl (Cardizem Tab*) 30 mg PO BID [facility] Last Admin: 06/03/18 09:01 Dose: 30 mg Docusate Sodium (Colace Cap*) 100 mg PO BID PRN PRN Reason: CONSTIPATION Last Admin: 06/01/18 14:02 Dose: 100 mg Furosemide (Lasix Iv*) 40 mg IV DAILY [facility] Insulin Human Lispro (Humalog*) 0 units SUBCUT ACHS [facility]; Protocol Last Admin: 06/03/18 09:01 Dose: 6 unit Lactulose (Lactulose*) 30 ml PO BID [facility] Last Admin: 06/03/18 09:01 Dose: 30 ml Magnesium Oxide (Magox 400 Tab*) 400 mg PO TID [facility] Last Admin: 06/03/18 08:59 Dose: 400 mg Metoprolol Succinate (Toprol Xl Tab*) 25 mg PO DAILY [facility] Last Admin: 06/03/18 08:58 Dose: 25 mg Mometasone Furoate/Formoterol Fumar (Dulera 100/5 Mdi*) 2 puff INH BID [facility] Last Admin: 06/03/18 09:22 Dose: 2 puff Morphine Sulfate (Morphine Inj (Syringe))*) 2 mg IV Q2H PRN PRN Reason: PAIN Last Admin: 06/03/18 06:13 Dose: 2 mg Nitroglycerin (Nitroglycerin Tab 0.4 Mg*) 0.4 mg SL Q5M PRN PRN Reason: ANGINA Pantoprazole Sodium (Protonix Tab*) 40 mg PO DAILY [facility] Last Admin: 06/03/18 09:00 Dose: 40 mg Rivaroxaban (Xarelto(*)) 20 mg PO QPM [facility] Last Admin: 06/02/18 17:06 Dose: 20 mg Thiamine HCl (Vitamin B-1 Tab*) 100 mg PO DAILY [facility] Last Admin: 06/03/18 09:00 Dose: 100 mg Zinc Sulfate (Zinc-220 Cap*) 220 mg PO DAILY [facility] Last Admin: 06/03/18 08:58 Dose: 220 mg Vital Signs - 8 hr 06/03/18 06/03/18 06/03/18 05:43 06:13 07:42 Temperature 36.4 C 36.7 C Pulse Rate 104 78 Respiratory 20 20 16 Rate Blood Pressure 120/74 137/73 (mmHg) O2 Sat by Pulse 97 98 Oximetry 06/03/18 06/03/18 08:59 09:23 Temperature Pulse Rate 78 Respiratory 18 18 Rate Blood Pressure (mmHg) O2 Sat by Pulse 98 Oximetry Oxygen Devices in Use Now: Nasal Cannula Appearance: Awake, cooperative Eyes: No Scleral Icterus Neck: NL Appearance and Movements; NL JVP Respiratory: - - absent BS left lower lung field, otherwise CTA Cardiovascular: NL Sounds; No Murmurs; No JVD Abdominal: No Hepatosplenomegaly, - - distended, tense, subjective tenderness throughout Lymphatic: No Cervical Adenopathy Extremities: - - 3+ pitting edema bilat Neurological: Alert and Oriented x 3 Lines/Tubes/Other Access: Clean, Dry and Intact Peripheral IV Nutrition: Taking PO's Result Diagrams: 06/03/18 07:37 06/03/18 10:20 Additional Lab and Data: Laboratory Tests 06/03/18 06/03/18 06/03/18 07:37 08:01 10:20 Glucose 196 H 312 H POC Glucose (mg/dL) 220 H AST 20 ALT 20 Alkaline Phosphatase 142 H 06/03/18 11:42 Glucose POC Glucose (mg/dL) 300 H AST ALT Alkaline Phosphatase Microbiology and Other Data: Microbiology 06/01/18 12:30 Body Fluid - Other Gram Stain - Final 06/01/18 12:30 Paracentesis Fluid Sterile Body Fluid Culture - Preliminary 06/01/18 12:30 Paracentesis Fluid Sterile Body Fluid Culture - Preliminary No Growth Day 1 No Growth Day 1 EKG Data: EKG: a-fib, pacer spikes Assess/Plan/Problems-Billing Assessment: 57 year old man w/ diabetes, Cor pulmonale, here with volume overload, CHF after not taking medications for 3 days - Patient Problems (1) Hyperkalemia Current Visit: No Status: Acute Priority: High Code(s): E87.5 - HYPERKALEMIA SNOMED Code(s): 83884291 Comment: -this is severe, may be symptomatic, but EKG reassuring -treated w/ insulin, glucose, and lasix -will start oral K binder -Recheck BMP in 2 hours and in AM -spironolactone stopped (2) Cor pulmonale (chronic) Current Visit: Yes Status: Acute Priority: Medium Code(s): I27.81 - COR PULMONALE (CHRONIC) SNOMED Code(s): 27513602 Comment: -Clearly volume overloaded, due to noncompliance, RV failure -Will diurese w/ loop diuretics, follow potassium carefully (3) A-fib Current Visit: No Status: Acute Priority: Medium Code(s): I48.91 - UNSPECIFIED ATRIAL FIBRILLATION SNOMED Code(s): 65104744 Comment: -rate control and anticoagulation on target -Continue Diltiazem and Rivaroxaban (4) Ascites Current Visit: No Status: Acute Priority: Medium Code(s): R18.8 - OTHER ASCITES SNOMED Code(s): 887072514 Comment: -I think he would benefit from large volume paracentesis, due to symptoms. -tried to arrange through radiology, but was advised to speak with surgery -continue diuretics (5) Uncontrolled diabetes mellitus Current Visit: No Status: Acute Priority: Medium Onset Date: 04/30/14 Code(s): E11.65 - TYPE 2 DIABETES MELLITUS WITH HYPERGLYCEMIA SNOMED Code(s): 28164438 Comment: -Sugars poorly controlled -appropriately off oral metformin and other agents -will start Lantus, continue sliding scale (6) DVT prophylaxis Current Visit: No Status: Acute Priority: Low Onset Date: 04/30/14 Code( s): WNA3991 - SNOMED Code(s): 387478916 Comment: Jarred Status and Disposition: inpatient
[2018-06-03 12:27] LABS: BUN/Creatinine Ratio 25.7 (8-20); Calcium 8.7 mg/dL (8.6-10.3); EGFR African American 48.9 (>60); EGFR Non-African American 40.4 (>60)
[2018-06-03 12:34] LABS: Potassium 6.1 mmol/L (3.5-5.0)
[2018-06-03] MEDS: Insulin GLARGINE(*) 1 UNITS UNIT SUBCUT SCH (12:34)
[2018-06-03] MEDS: Furosemide IV* 10 MG/ML VIAL (40 MG) IV SCH (12:34)
[2018-06-03] MEDS: Patiromer POWDER* 8.4 GM PAK PO SCH (12:44)
[2018-06-03] MEDS: Rivaroxaban TAB(*) 20 MG TAB PO SCH (16:44)
[2018-06-04 06:22] LABS: Calcium 8.6 mg/dL (8.6-10.3); EGFR African American 54.2 (>60); EGFR Non-African American 44.8 (>60)
[2018-06-04 06:28] LABS: Potassium 6.5 mmol/L (3.5-5.0)
[2018-06-04] MEDS ORDERED: Dextrose 50% Syringe 50 ML* 25 GM/50 ML SYRINGE IV PUSH STA (06:32)
[2018-06-04] MEDS ORDERED: Insulin REGULAR(*) 1 UNITS UNIT IV PUSH ONE (06:33)
[2018-06-04] MEDS ORDERED: Calcium Gluconate INJ* 1 GM in NS 0.9% 50 ML* 50 ML IVPB ONE (07:30)
[2018-06-04] MEDS: Mometasone/Formoter 100/5 MDI INH SCH ×2 (07:54→21:02)
[2018-06-04] MEDS: Furosemide IV* 10 MG/ML VIAL (40 MG) IV SCH ×2 (09:46→11:05)
[2018-06-04] MEDS ORDERED: Metolazone TAB* 5 MG PO ONE (09:48)
[2018-06-04] MEDS: Insulin LISPRO* 1 UNITS UNIT SUBCUT SCH ×4 (09:56→20:18)
[2018-06-04] MEDS: Aspirin EC TAB* 81 MG TAB.EC PO SCH (09:58)
[2018-06-04] MEDS: Metoprolol Succinate XL TAB* 25 MG PO SCH (09:58)
[2018-06-04] MEDS: Thiamine TAB* 100 MG TAB PO SCH (09:58)
[2018-06-04] MEDS: Magnesium Oxide TAB* 400 MG PO SCH ×3 (09:58→20:18)
[2018-06-04] MEDS: Bumetanide TAB* 2 MG PO SCH (09:58)
[2018-06-04] MEDS: Diltiazem TAB* 30 MG PO SCH ×2 (09:58→20:18)
[2018-06-04] MEDS: Cetirizine* 10 MG TAB PO SCH (09:58)
[2018-06-04] MEDS: Zinc Sulfate CAP* 220 MG PO SCH (09:58)
[2018-06-04] MEDS: Pantoprazole TAB * 40 MG TAB PO SCH (09:58)
[2018-06-04] MEDS: Atorvastatin* 80 MG TAB PO SCH (09:59)
[2018-06-04] MEDS: Patiromer POWDER* 8.4 GM PAK PO SCH ×2 (10:24→23:02)
[2018-06-04] MEDS: Insulin GLARGINE(*) 1 UNITS UNIT SUBCUT SCH ×2 (13:07→16:06)
--- NOTE | 2018-06-04 14:02 | PN ---
Subjective Date of Service: 06/04/18 Interval History: Patient feels a bit better today. He feels very tight and full in abdomen. He is tolerating some food. Denies diarrhea, even after taking lactulose and Patiromer. Family History: Unchanged from Admission Social History: Unchanged from Admission Past Medical History: Unchanged from Admission Objective Active Medications: Acetaminophen (Tylenol Tab*) 650 mg PO Q4H PRN PRN Reason: FEVER/PAIN Last Admin: 06/02/18 12:35 Dose: 650 mg Albuterol (Ventolin Hfa Inhaler*) 1 puff INH BID PRN PRN Reason: WHEEZING Aspirin (Aspirin Ec Tab*) 81 mg PO DAILY [facility] Last Admin: 06/04/18 09:58 Dose: 81 mg Atorvastatin Calcium (Lipitor*) 80 mg PO DAILY [facility] Last Admin: 06/04/18 09:59 Dose: 80 mg Bumetanide (Bumex Tab*) 2 mg PO DAILY [facility] Last Admin: 06/04/18 09:58 Dose: 2 mg Cetirizine HCl (Zyrtec*) 10 mg PO DAILY [facility]; Protocol Last Admin: 06/04/18 09:58 Dose: 10 mg Dextrose (D50w Syringe 50 Ml*) 12.5 gm IV PUSH .FOR FS < 60 - SS PRN PRN Reason: FS < 60 Diltiazem HCl (Cardizem Tab*) 30 mg PO BID [facility] Last Admin: 06/04/18 09:58 Dose: 30 mg Docusate Sodium (Colace Cap*) 100 mg PO BID PRN PRN Reason: CONSTIPATION Last Admin: 06/01/18 14:02 Dose: 100 mg Furosemide (Lasix Iv*) 40 mg IV DAILY [facility] Last Admin: 06/04/18 11:05 Dose: 40 mg Insulin Glargine (Lantus(*)) 15 units SUBCUT Q24H [facility] Last Admin: 06/04/18 13:07 Dose: 15 units Insulin Human Lispro (Humalog*) 0 units SUBCUT ACHS [facility]; Protocol Last Admin: 06/04/18 13:07 Dose: 9 unit Lactulose (Lactulose*) 30 ml PO QID [facility] Last Admin: 06/04/18 13:06 Dose: 30 ml Magnesium Oxide (Magox 400 Tab*) 400 mg PO TID [facility] Last Admin: 06/04/18 13:07 Dose: 400 mg Metoprolol Succinate (Toprol Xl Tab*) 25 mg PO DAILY [facility] Last Admin: 06/04/18 09:58 Dose: 25 mg Mometasone Furoate/Formoterol Fumar (Dulera 100/5 Mdi*) 2 puff INH BID [facility] Last Admin: 06/04/18 07:54 Dose: 2 puff Morphine Sulfate (Morphine Inj (Syringe))*) 2 mg IV Q2H PRN PRN Reason: PAIN Last Admin: 06/03/18 06:13 Dose: 2 mg Nitroglycerin (Nitroglycerin Tab 0.4 Mg*) 0.4 mg SL Q5M PRN PRN Reason: ANGINA Ondansetron HCl (Zofran Inj*) 4 mg IV Q6H PRN PRN Reason: NAUSEA Pantoprazole Sodium (Protonix Tab*) 40 mg PO DAILY [facility] Last Admin: 06/04/18 09:58 Dose: 40 mg Patiromer (Veltassa Powder*) 8.4 gm PO BID [facility] Rivaroxaban (Xarelto(*)) 20 mg PO QPM [facility] Last Admin: 06/03/18 16:44 Dose: 20 mg Thiamine HCl (Vitamin B-1 Tab*) 100 mg PO DAILY [facility] Last Admin: 06/04/18 09:58 Dose: 100 mg Zinc Sulfate (Zinc-220 Cap*) 220 mg PO DAILY [facility] Last Admin: 06/04/18 09:58 Dose: 220 mg Vital Signs - 8 hr 06/04/18 06/04/18 07:56 08:28 Temperature 36.3 C Pulse Rate 82 91 Respiratory 16 22 Rate Blood Pressure 148/81 (mmHg) O2 Sat by Pulse 97 99 Oximetry Oxygen Devices in Use Now: Nasal Cannula Appearance: alert, no distress Ears/Nose/Mouth/Throat: NL Teeth, Lips, Gums Neck: NL Appearance and Movements; NL JVP Respiratory: Symmetrical Chest Expansion and Respiratory Effort, Clear to Auscultation Cardiovascular: NL Sounds; No Murmurs; No JVD, - - irregular Abdominal: No Hepatosplenomegaly, - - soft, distended, +BS, +ascites Lymphatic: No Cervical Adenopathy Extremities: - - 2+ edema bilat LE Skin: - - chronic venostasis changes bilat shins Lines/Tubes/Other Access: Clean, Dry and Intact Peripheral IV Result Diagrams: 06/03/18 07:37 06/04/18 05:35 Additional Lab and Data: Laboratory Tests 06/04/18 06/04/18 06/04/18 07:16 08:32 12:35 POC Glucose (mg/dL) 137 H 352 H 259 H Microbiology and Other Data: Microbiology 06/03/18 20:11 Stool Stool Occult Blood (KAROL) - Final 06/03/18 20:11 Stool Rotavirus Antigen - Final Negative Shiga Toxin 1 & 2 Negative Rotavirus 06/01/18 12:30 Body Fluid - Other Gram Stain - Final 06/01/18 12:30 Paracentesis Fluid Sterile Body Fluid Culture - Preliminary 06/01/18 12:30 Paracentesis Fluid Sterile Body Fluid Culture - Preliminary No Growth Day 2 No Growth Day 2 Assess/Plan/Problems-Billing Assessment: 57 year old man w/ diabetes, Cor pulmonale, here with volume overload, CHF after not taking medications for 3 days - Patient Problems (1) Hyperkalemia Current Visit: No Status: Acute Priority: High Code(s): E87.5 - HYPERKALEMIA SNOMED Code(s): 87274298 Comment: -improved from yesterday, still severe, -will give metolaxone before lasix -doubled oral K binder -Recheck BMP in 4-5 hrs (2) Cor pulmonale (chronic) Current Visit: Yes Status: Acute Priority: Medium Code(s): I27.81 - COR PULMONALE (CHRONIC) SNOMED Code(s): 18452528 Comment: -Clearly volume overloaded, due to noncompliance, RV failure -also has congested liver (3) A-fib Current Visit: No Status: Acute Priority: Medium Code(s): I48.91 - UNSPECIFIED ATRIAL FIBRILLATION SNOMED Code(s): 45853529 Comment: -rate control and anticoagulation on target -Continue Diltiazem and Rivaroxaban (4) Ascites Current Visit: No Status: Acute Priority: Medium Code(s): R18.8 - OTHER ASCITES SNOMED Code(s): 144540371 Comment: -had 2-liter paracentesis on admission, but this has re-accumulated. -continue diuretics (5) Uncontrolled diabetes mellitus Current Visit: No Status: Acute Priority: Medium Onset Date: 04/30/14 Code(s): E11.65 - TYPE 2 DIABETES MELLITUS WITH HYPERGLYCEMIA SNOMED Code(s): 57941846 Comment: -Sugars poorly controlled -appropriately off oral metformin and other agents -titrated up Lantus, continue sliding scale (6) DVT prophylaxis Current Visit: No Status: Acute Priority: Low Onset Date: 04/30/14 Code( s): BCS1399 - SNOMED Code(s): 900568512 Comment: Lisarelto Status and Disposition: inpatient
[2018-06-04] MEDS: Rivaroxaban TAB(*) 20 MG TAB PO SCH (17:40)
[2018-06-04 18:05] LABS: BUN/Creatinine Ratio 27.7 (8-20); Calcium 8.8 mg/dL (8.6-10.3); EGFR African American 54.6 (>60); EGFR Non-African American 45.1 (>60)
[2018-06-04 18:06] LABS: Potassium 5.5 mmol/L (3.5-5.0)
[2018-06-05 06:45] LABS: BUN/Creatinine Ratio 31.2 (8-20); Calcium 8.6 mg/dL (8.6-10.3); EGFR African American 62.7 (>60); EGFR Non-African American 51.8 (>60)
[2018-06-05 06:46] LABS: Potassium 5.2 mmol/L (3.5-5.0)
[2018-06-05] MEDS: Insulin LISPRO* 1 UNITS UNIT SUBCUT SCH ×2 (08:12→12:24)
[2018-06-05] MEDS: Metoprolol Succinate XL TAB* 25 MG PO SCH (08:20)
[2018-06-05] MEDS: Magnesium Oxide TAB* 400 MG PO SCH ×2 (08:20→12:24)
[2018-06-05] MEDS: Pantoprazole TAB * 40 MG TAB PO SCH (08:20)
[2018-06-05] MEDS: Aspirin EC TAB* 81 MG TAB.EC PO SCH (08:20)
[2018-06-05] MEDS: Atorvastatin* 80 MG TAB PO SCH (08:20)
[2018-06-05] MEDS: Cetirizine* 10 MG TAB PO SCH (08:20)
[2018-06-05] MEDS: Diltiazem TAB* 30 MG PO SCH (08:20)
[2018-06-05] MEDS: Thiamine TAB* 100 MG TAB PO SCH (08:20)
[2018-06-05] MEDS: Zinc Sulfate CAP* 220 MG PO SCH (08:20)
[2018-06-05] MEDS: Bumetanide TAB* 2 MG PO SCH (08:20)
[2018-06-05] MEDS: Furosemide IV* 10 MG/ML VIAL (40 MG) IV SCH (08:21)
[2018-06-05] MEDS: Mometasone/Formoter 100/5 MDI INH SCH (08:42)
[2018-06-05] MEDS: Patiromer POWDER* 8.4 GM PAK PO SCH (11:23)
[2018-06-05] MEDS ORDERED: Witch Hazel PAD* JAR TOPICAL SCH (12:00)
[2018-06-05 12:39] VITALS: BP 150/76
--- NOTE | 2018-06-05 15:35 | PN ---
Progress Note - Progress Note Date of Service: 06/05/18 Note: Time spent on discharge including exam of patient, discussion with patient, nurse, CM, review of EMR and preparation of discharge documents is 45 minutes.
[2018-06-05] MEDS: Insulin GLARGINE(*) 1 UNITS UNIT SUBCUT SCH (15:54)
--- NOTE | 2018-06-06 00:13 | DS ---
CC: Dr. Hill DISCHARGE SUMMARY: DATE OF ADMISSION: DATE OF DISCHARGE: 06/05/18 HISTORY OF PRESENT ILLNESS: This 57-year-old man presented with nausea, vomiting, diarrhea, shortnes s of breath, increased abdominal girth, and slowing in his lower extremities. The history is detaile d in the admission note. There is a notation in the chart that he may not have taken his medications for a few days. The patient denies this. He said an aide comes every Friday to set up his medicati ons in pill bottles and he always takes them, but he seemed a little confused and felt that some cristela les have been taken away from him. He could not name any of his medications. In the hospital, he had paracentesis in the emergency room of 2 L. Again, it has been marked that he has missed multiple days of medication. He was given his oral meds. He was given some IV furosemid e, I believe, 2 doses. I note at home he was on bumetanide. The patient did improve symptomatically. He no longer had nausea or vomiting. I believe his abdomin al pain also went away. His edema may have resolved a little bit. His weight fluctuated in the hosp ital, I am not sure were very helpful. I not sure if his urine output was recorded. He was reported as putting out 4 L of urine on the day before discharge after the day he received IV furosemide. I am going to try switching him to torsemide 40 mg daily. He will have a BMP in 4 days. His last cr eatinine here was 1.41, which is well within the range of his recent creatinine measurements. He did still have about 2+ edema on the day of discharge and massive ascites. He seemed comfortable. He has oxygen at home, which he uses off and on as he chooses. He states it has been a long time si nce he drank heavily. He does not smoke. FINAL DIAGNOSES: 1. Alcoholic cirrhosis with ascites. 2. History of atrial fibrillation. 3. Pulmonary hypertension. 4. Chronic kidney disease and hyperkalemia. 5. Diabetes mellitus. MEDICATIONS ON DISCHARGE: 1. Patiromer powder 8.4 g b.i.d. 2. Torsemide 40 mg daily. 3. Albuterol inhaler 1 puff b.i.d. p.r.n. 4. Omeprazole 20 mg daily. 5. Cetirizine 10 mg daily. 6. Metoprolol succinate 25 mg daily. 7. Atorvastatin 80 mg daily. 8. Nitroglycerin 0.4 mg sublingual every 5 minutes p.r.n. 9. Diltiazem 30 mg b.i.d. 10. Rivaroxaban 20 mg daily. 11. Aspirin 81 mg daily. 12. Acetaminophen 1000 mg every 12 hours p.r.n. 13. Maalox Plus 30 mL every 6 p.r.n. 14. Docusate 100 mg b.i.d. p.r.n. 15. Sitagliptin/metformin one tablet b.i.d. The patient will have a basic metabolic profile on 06/09/18. He was instructed to weigh himself ever y day, write down the weights and bring those weights to his medical provider. [facility] week of discharge. CONDITION ON DISCHARGE: Stable. DISPOSITION ON DISCHARGE: Discharged home. [id number]/[facility] #: [id number]
[2018-06-06] MEDS ORDERED: Torsemide TAB 10 MG PO SCH (09:00)
== END 2018-06-05 16:10 | disposition home or self-care (01) | DRG 291 ==
LOC: ED 10:09 → MED 13:13 → OBSVTOIN 06-02 14:00 → MED 06-02 21:53
PROVIDERS: ADMIT Internal Medicine; ATTEND Internal Medicine
PROC: 0W9G3ZZ Drainage of Peritoneal Cavity, Percutaneous Approach (ICD-10-PCS; principal; 2018-06-01)
DX: I13.0 Hypertensive heart and chronic kidney disease with heart failure and stage 1 through stage 4 chronic kidney disease, or unspecified chronic kidney disease (principal); I50.23 Acute on chronic systolic (congestive) heart failure; K70.31 Alcoholic cirrhosis of liver with ascites; E11.22 Type 2 diabetes mellitus with diabetic chronic kidney disease; N18.3 Chronic kidney disease, stage 3 (moderate); K52.9 Noninfective gastroenteritis and colitis, unspecified; R09.02 Hypoxemia; E60 Dietary zinc deficiency; I48.2 Chronic atrial fibrillation; J44.9 Chronic obstructive pulmonary disease, unspecified; D50.9 Iron deficiency anemia, unspecified; I27.20 Pulmonary hypertension, unspecified; R74.8 Abnormal levels of other serum enzymes; G47.33 Obstructive sleep apnea (adult) (pediatric); E55.9 Vitamin D deficiency, unspecified; I27.81 Cor pulmonale (chronic); E11.65 Type 2 diabetes mellitus with hyperglycemia; F32.9 Major depressive disorder, single episode, unspecified; M19.042 Primary osteoarthritis, left hand; M19.041 Primary osteoarthritis, right hand; M19.072 Primary osteoarthritis, left ankle and foot; M19.071 Primary osteoarthritis, right ankle and foot; K21.9 Gastro-esophageal reflux disease without esophagitis; I25.10 Atherosclerotic heart disease of native coronary artery without angina pectoris; E78.00 Pure hypercholesterolemia, unspecified; Z90.89 Acquired absence of other organs; Z91.041 Radiographic dye allergy status; Z91.013 Allergy to seafood; Z79.01 Long term (current) use of anticoagulants; Z79.82 Long term (current) use of aspirin; Z95.5 Presence of coronary angioplasty implant and graft; Z95.810 Presence of automatic (implantable) cardiac defibrillator; Z86.19 Personal history of other infectious and parasitic diseases; Z82.49 Family history of ischemic heart disease and other diseases of the circulatory system; Z84.1 Family history of disorders of kidney and ureter; Z87.442 Personal history of urinary calculi; Z87.891 Personal history of nicotine dependence; E87.5 Hyperkalemia
CPT/HCPCS: 36415; 71046; 80048; 80053; 80061; 82140; 82150; 82247; 82248; 82270; 82945; 83036; 83540; 83550; 83615; 83630; 84157; 84443; 84484; 85025; 85610; 87040; 87045; 87046; 87077; 87205; 87425; 87899; 89051; 93005; 94640; 94660; 99284; A9270-GY; G0378; G8978-GP-CJ; G8979-GP-CH; J0610; J1940; J2270; J2405

== ENCOUNTER 2018-06-07 15:58 | Emergency (ER) | payer MEDICARE, OTHER ==
[2018-06-07] MEDS ORDERED: NS 0.9% 1000 ML** 2,520 ML IV ONE (16:52)
[2018-06-07] MEDS ORDERED: cefTRIAXone(*) 1 GM in NS 0.9% 50 ML* 50 ML IVPB ONE (16:53)
[2018-06-07 17:17] LABS: Hematocrit 28 % (36-46); Hemoglobin 8.5 g/dL (14.0-18.0); Mean Corpuscular HGB Conc 31 g/dL (31-36); Mean Corpuscular Hemoglobin 21 pg (27-31); Mean Corpuscular Volume 69 fL (80-94); Platelet Count 218 10^3/uL (150-450); Red Blood Count 4.05 10^6 /uL (4.18-5.48); Red Cell Distribution Width 17 % (10.5-15); White Blood Count 8.8 10^3/uL (3.5-10.8)
--- NOTE | 2018-06-07 17:17 | ED ---
GI/ HPI - HPI Summary HPI Summary: This patient is a 57 year old M brought in by ambulance to [facility] with a chief complaint of dysuria that began on 06/05/2018. The patient rates the pain 8/10 in severity. Symptoms aggravated by nothing. Symptoms alleviated by nothing. Patient reports fever, chills, diaphoresis, productive cough (white phlegm), abdominal pain, and feeling unable to entirely empty bladder. Pt denies any erythema of eyes, sore throat, CP, SOB, N/V, back pain, hematuria, myalgia, edema, rash, or dizziness. Temperature: 100.5 - History of Current Complaint Chief Complaint: EDAbdPain Time Seen by Provider: 06/07/18 16:44 Stated Complaint: GENERAL PAIN PER EMS Hx Obtained From: Patient Onset/Duration: Started Days Ago, Atraumatic, Still Present Timing: Constant Severity: Severe Current Severity: Severe Pain Intensity: 8 Location of Pain: Diffuse Associated Signs and Symptoms: Positive: Other: - Positive fever, chills, diaphoresis, productive cough (white phlegm), abdominal pain, and feeling unable to entirely empty bladder. Negative erythema of eyes, sore throat, CP, SOB, N/V, back pain, hematuria, myalgia, edema, rash, or dizziness Aggravating Factor(s): Nothing Alleviating Factor(s): Nothing - Additional Pertinent History Primary Care Physician: ALEXANDREA - Allergy/Home Medications Allergies/Adverse Reactions: Allergies Allergy/AdvReac Type Severity Reaction Status Date / Time Iodinated Contrast- Oral and Allergy Unknown Verified 06/01/18 10:16 IV Dye Reaction Details shellfish derived Allergy Unknown Verified 06/01/18 10:16 Reaction Details PMH/Surg Hx/FS Hx/Imm Hx Previously Healthy: No Endocrine/Hematology History: Reports: Hx Diabetes Denies: Hx Anticoagulant Therapy, Hx Blood Disorders, Hx Blood Transfusions, Hx Bone Marrow Disease, Hx Systemic Lupus Erythematosus, Hx Sickle Cell Disease , Hx Thyroid Disease, Hx Anemia, Hx Unexplained Bleeding, Other Endocrine/ Hematological Disorders Cardiovascular History: Reports: Hx Angina, Hx Angioplasty, Hx Atrial Fibrillation, Hx Auto Implanted Cardiovert Defib, Hx Congestive Heart Failure, Hx Coronary Artery Disease, Hx Hypercholesterolemia, Hx Hypertension, Hx Pacemaker/ICD - 2008 Denies: Hx Aneurysm, Hx Cardiac Arrest, Hx Cardiomegaly, Hx Congenital Heart Disease, Hx Deep Vein Thrombosis, Hx Embolism, Hx Hypotension, Hx Myocardial Infarction, Hx Peripheral Vascular Disease, Hx Rheumatic Fever, Hx Syncope, Hx Valvular Heart Disease, Other Cardiovascular Problems/Disorders Respiratory History: Reports: Hx 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, Hx Chronic Obstructive Pulmonary Disease (COPD), Hx Sleep Apnea Denies: Hx Chronic Bronchitis, Hx Cystic Fibrosis, Hx Lung Cancer, Hx Pleural Effusion, Hx Pneumonia, Hx Pulmonary Edema, Hx Pulmonary Embolism, Hx Seasonal Allergies, Other Respiratory Problems/Disorders GI History: Reports: Hx Gastroesophageal Reflux Disease Denies: Hx Cirrhosis, Hx Crohn's Disease, Hx Diverticulosis, Hx Gall Bladder Disease, Hx Gastrointestinal Bleed, Hx Hiatal Hernia, Hx Irritable Bowel, Hx Jaundice, Hx Obstructive Bowel, Hx Ileostomy, Hx Pyloric Stenosis, Hx Ulcer, Other GI Disorders History: Reports: Hx Kidney Stones - LEFT Denies: Hx Acute Renal Failure, Hx Benign Prostatic Hyperplasia, Hx Chronic Renal Failure, Hx Dialysis, Hx Kidney Infection, Hx Renal Disease, Other Problems/Disorders Musculoskeletal History: Reports: Hx Arthritis - BILATERAL HANDS AND LEGS Denies: Hx Back Problems, Hx Bursitis, Hx Congenital Bone Abnormalities, Hx Fibromyalgia, Hx Gout, Hx Orthopedic Injury, Hx Osteoporosis, Hx Scoliosis, Hx Tendonitis, Other Musculoskeletal History Sensory History: Reports: Hx Contacts or Glasses - for driving Denies: Hx Cataracts, Hx Eye Injury, Hx Glaucoma, Hx Deafness, Hx Hearing Aid , Hx Hearing Problem Opthamlomology History: Reports: Hx Contacts or Glasses - for driving Denies: Hx Cataracts, Hx Eye Injury, Hx Glaucoma Neurological History: Denies: Hx Dementia, Hx Headaches, Hx Migraine, Hx Seizures, Hx Transient Ischemic Attacks (TIA), Other Neuro Impairments/Disorders Psychiatric History: Reports: Hx Depression Denies: Hx Anxiety, Hx Attention Deficit Hyperactivity Disorder, Hx Eating Disorder, Hx Panic Disorder, Hx Post Traumatic Stress Disorder, Hx Inpatient Treatment, Hx Community Mental Health Tx, Hx Schizophrenia, Hx Bipolar Disorder , Hx Suicide Attempt, Hx of Violent Episodes Against Others, Hx Substance Abuse , Other Psychiatric Issues/Disorders - Surgical History Surgery Procedure, Year, and Place: PACEMAKER [facility] [place]. [place]EN[place]CTOMY [facility] [place]. MULTIPLE CYSTO, L STENT, L ESWL PROCEDURES [facility] [place]. CARDIAC CATH X3 2009, 2016 Hx Anesthesia Reactions: No - Immunization History Date of Tetanus Vaccine: Unknown Infectious Disease History: No Infectious Disease History: Denies: Hx Clostridium Difficile, Hx Hepatitis, Hx Human Immunodeficiency Virus (HIV), Hx of Known/Suspected MRSA, Hx Shingles, Hx Tuberculosis, Traveled Outside the [place] in Last 30 Days - Family History Known Family History: Positive: Cardiac Disease, Hypertension - Social History Occupation: Disabled Lives: With Family Alcohol Use: None Alcohol Amount: 2-3 PER DAY, former use Hx Substance Use: No Substance Use Type: Reports: None Hx Tobacco Use: Yes Smoking Status (MU): Former Smoker Type: Cigarettes Amount Used/How Often: 2 PACKS A DAY Length of Time of Smoking/Using Tobacco: about 20 years,not sure Have You Smoked in the Last Year: No Review of Systems Positive: Fever, Chills, Skin Diaphoresis Negative: Erythema Negative: Sore Throat Negative: Chest Pain Positive: Cough. Negative: Shortness Of Breath Positive: Abdominal Pain. Negative: Vomiting, Nausea Genitourinary: Other - Positive feeling unable to entirely empty bladder Positive: dysuria. Negative: hematuria Positive: Other - Negative back pain. Negative: Myalgia, Edema Negative: Rash Neurological: Other - Negative dizziness All Other Systems Reviewed And Are Negative: Yes Physical Exam - Summary Physical Exam Summary: Constitutional: Well-developed, Well-nourished, Alert. (-) Distressed Skin: hot to touch, Dry HENT: Normocephalic; Atraumatic Eyes: Conjunctiva normal Neck: Musculoskeletal ROM normal neck. (-) JVD, (-) Stridor, (-) Tracheal deviation Cardio: Rhythm regular, rate normal, Heart sounds normal; Intact distal pulses; The pedal pulses are 2+ and symmetric. Radial pulses are 2+ and symmetric. (-) Murmur Pulmonary/Chest wall: Effort normal. (-) Respiratory distress, (-) Wheezes, (-) Rales Abd: Soft, (-) Guarding, (-) Rebound, suprapubic and left CVA tenderness, abdominal ascites Musculoskeletal: (-) Edema Lymph: (-) Cervical adenopathy Neuro: Alert, Oriented x3 Psych: Mood and affect Normal Triage Information Reviewed: Yes Vital Signs On Initial Exam: Initial Vitals Temp Pulse Resp BP Pulse Ox 100.2 F 91 20 142/85 95 06/07/18 16:00 06/07/18 16:00 06/07/18 16:00 06/07/18 16:00 06/07/18 16:00 Vital Signs Reviewed: Yes Diagnostics - Vital Signs Vital Signs Temp Pulse Resp BP Pulse Ox 06/07/18 16:30 92 25 142/85 93 06/07/18 16:19 108 34 134/92 86 06/07/18 16:18 95 31 92 06/07/18 16:00 100.2 F 91 20 142/85 95 - Laboratory Result Diagrams: 06/07/18 17:01 06/07/18 17:01 Lab Statement: Any lab studies that have been ordered have been reviewed, and results considered in the medical decision making process. - Radiology Chest XR Radiology Interpretation Completed By: ED Physician Summary of Radiographic Findings: Chest XR reveals, per ED physician, no acute disease. - CT CT Abdomen and Pelvis CT Interpretation Completed By: Radiologist Summary of CT Findings: CT abdomen and pelvis reveals, per radiologist, Loculated pleural effusion on the right smaller than that identified on April. Small amount of ascites appears to BE improved since previous exam. Cardiomegaly. Fullness of both renal collecting system however the ureters can be traced to the urinary bladder bilaterally with no definite calculi. ED physician has reviewed this radiology report. Re-Evaluation - Re-Evaluation First Eval Re-Evaluation Time: 20:07 Change: Unchanged Comment: Pt reports he has stools that are hard to pass. Upon rectal examination : apparent right anal fissure, no tamara blood on exam, abdomen appears bloated but nontender GIGU Course/Dx - Course Course Of Treatment: This patient is a 57 year old M brought in by ambulance to [facility] with a chief complaint of dysuria that began on 06/05/2018. Physical Exam Findings: Skin hot to the touch, suprapubic and left CVA tenderness, abdominal ascites. CT abdomen and pelvis reveals, per radiologist, Loculated pleural effusion on the right smaller than that identified on May 10, 2018. Small amount of ascites appears to BE improved since previous exam. Cardiomegaly. Fullness of both renal collecting system however the ureters can be traced to the urinary bladder bilaterally with no definite calculi. CXR reveals, per ED physician, NAD. Bloodwork and UA obtained. In the ED course the patient was given Colac, lidocaine, fluids, ceftriaxone, and Zinc Oxide. Laboratory workup is unremarkable. He has been afebrile during his ED stay. Bladder scan was negative. No evidence for urinary retention. Blood count is normal. No objective evidence of sepsis. Cystitis appears to have cleared. Patient will be discharged with prescription for Colace cap and boudreauxs butt paste and with follow up from PCP. The patient is agreeable with this plan. - Diagnoses Provider Diagnoses: Chronic renal failure, Ascites, Anal fissure, Constipation Discharge - Sign-Out/Discharge Documenting (check all that apply): Patient Departure - Discharge home Patient Received Moderate/Deep Sedation with Procedure: No - Discharge Plan Condition: Stable Disposition: HOME Prescriptions: Docusate CAP* [Colace Cap*] 100 mg PO BID PRN #20 cap PRN Reason: Constipation Zinc Oxide 16% PASTE* [Sidney's Butt paste] 1 applic TOPICAL BID #1 tube Patient Education Materials: Anal Fissure (ED), Chronic Kidney Disease (ED), Ascites (ED), Constipation (ED) Referrals: Erasmo Hill MD [Primary Care Provider] - 2 Days Additional Instructions: RETURN TO THE EMERGENCY DEPARTMENT FOR NEW OR WORSENING SYMPTOMS - Attestation Statements Document Initiated by Scribe: Yes Documenting Scribe: Silvana Raza Provider For Whom Scribe is Documenting (Include Credential): Dr. Nicanor Castano MD Scribe Attestation: ISilvana, scribed for Dr. Nicanor Castano MD on 06/07/18 at 2140. Status of Scribe Document: Ready
[2018-06-07 17:24] LABS: Activated Partial Thrombo Time 34.8 seconds (26.0-36.3); INR 2.08 (0.77-1.02)
[2018-06-07 17:32] LABS: Albumin 3.8 g/dL (3.2-5.2); Albumin/Globulin Ratio 1.2 (1-3); BUN/Creatinine Ratio 16.9 (8-20); EGFR African American 49.8 (>60); EGFR Non-African American 41.2 (>60); Globulin 3.3 g/dL (2-4); Total Bilirubin 1.2 mg/dL (0.2-1.0); Total Protein 7.1 g/dL (6.4-8.9)
[2018-06-07 17:41] LABS: Urine Appearance Cloudy; Urine Bilirubin Negative (Negative); Urine Blood Negative (Negative); Urine Color Yellow; Urine Glucose Negative (Negative); Urine Ketones Negative (Negative); Urine Nitrite Negative (Negative); Urine Protein Negative (Negative); Urine Specific Gravity 1.008 (1.010-1.030); Urine Urobilinogen Negative (Negative)
[2018-06-07 17:43] LABS: Lymphocytes % 7 %; Microcytosis 1+; Monocytes % 8 %; Neutrophil % 85 %; Polychromasia 1+
[2018-06-07 17:45] LABS: ABS Basophils 0 10^3/ul (0-0.2); ABS Eosinophils 0 10^3/ul (0-0.6); ABS Lymphocytes 0.6 10^3/ul (1.0-4.8); ABS Monocytes 0.8 10^3/ul (0-0.8); ABS Neutrophils 7.4 10^3/ul (1.5-7.7)
[2018-06-07 17:47] LABS: ABS Neutrophils 7.5 10^3/ul (1.5-7.7)
[2018-06-07] MEDS ORDERED: Docusate CAP* 100 MG PO ONE (20:13)
[2018-06-07] MEDS ORDERED: Zinc Oxide 40% (TOPICAL)* TUBE TOPICAL ONE (20:13)
[2018-06-07] MEDS ORDERED: Lidocaine 2% JELLY* 10 ML JELLY TOPICAL ONE (20:14)
[2018-06-07] MEDS ORDERED: Lidocaine 2% JELLY* 6 ML JELLY TOPICAL ONE (22:00)
[2018-06-08 01:52] LABS: Influenza A Molecular NEGATIVE (Negative); Influenza B Molecular NEGATIVE (Negative)
[2018-06-08 07:25] VITALS: BP 150/98
== END 2018-06-08 07:23 | disposition home or self-care (01) ==
LOC: ED 15:58
DX: R18.8 Other ascites (principal); K60.2 Anal fissure, unspecified; K59.00 Constipation, unspecified; R91.8 Other nonspecific abnormal finding of lung field; I13.0 Hypertensive heart and chronic kidney disease with heart failure and stage 1 through stage 4 chronic kidney disease, or unspecified chronic kidney disease; E11.22 Type 2 diabetes mellitus with diabetic chronic kidney disease; I50.9 Heart failure, unspecified; N18.9 Chronic kidney disease, unspecified; I48.91 Unspecified atrial fibrillation; I25.10 Atherosclerotic heart disease of native coronary artery without angina pectoris; J44.9 Chronic obstructive pulmonary disease, unspecified; K21.9 Gastro-esophageal reflux disease without esophagitis; F32.9 Major depressive disorder, single episode, unspecified; E78.00 Pure hypercholesterolemia, unspecified; Z91.041 Radiographic dye allergy status; Z98.61 Coronary angioplasty status; Z95.810 Presence of automatic (implantable) cardiac defibrillator; Z79.51 Long term (current) use of inhaled steroids; Z87.891 Personal history of nicotine dependence
CPT/HCPCS: 36415; 71045; 74176; 80053; 81003; 83605; 85025; 85060; 85610; 85730; 87040; 96365; 96366; 99285; A9270-GY; J0696

== ENCOUNTER → 2018-07-08 18:04 | Emergency (ER) | payer MEDICARE, MEDICAID ==
[2018-07-08 20:08] VITALS: BP 131/83
== END | disposition left against medical advice (07) ==
LOC: ED 18:04
DX: R18.8 Other ascites (principal); Z53.21 Procedure and treatment not carried out due to patient leaving prior to being seen by health care provider

== ENCOUNTER 2018-07-10 13:44 | Emergency (ER) | payer MEDICARE, MEDICAID ==
--- NOTE | 2018-07-10 14:58 | ED ---
Abdominal Pain/Male - HPI Summary HPI Summary: A 57 y/o M presents to ED with c/o L-sided lower rib pain onset a week ago. Patient denies recent or trauma. Patient also has fluid on his abd and was sent to ED for paracentesis by his PCP, Dr. Hill. Associated sx: non-productive cough, mild abd pain, bilat pedal edema. Denies CP, fever, n/v/d. He wears 2L of home O2 all day. He ambulates with a walker. PMHx: 3 stents, liver dz with ascites. He's unsure if he's ever had a PE. Patient seen in waiting room at 14:53. Home Medications Medication Instructions Recorded Confirmed Type Albuterol HFA INHALER* [Ventolin 1 puff INH BID PRN 12/07/11 07/10/18 History HFA Inhaler*] Omeprazole CAP (NF) [Prilosec CAP* 20 mg PO DAILY 07/22/16 07/10/18 History 20 MG] Cetirizine* [ZyrTEC 10 MG TAB*] 10 mg PO DAILY 04/22/17 07/10/18 History Metoprolol Succinate XL TAB* 25 mg PO DAILY 04/22/17 07/10/18 History [Toprol XL TAB*] Atorvastatin* [Lipitor 80 MG*] 80 mg PO DAILY 05/02/17 07/10/18 History Nitroglycerin TAB 0.4 MG* 0.4 mg SL Q5M PRN #25 tab 05/04/17 07/10/18 Rx Diltiazem TAB* [Cardizem 30 MG 30 mg PO BID 05/21/17 07/10/18 History Tab*] Rivaroxaban TAB(*) [Xarelto 20 mg] 20 mg PO DAILY 05/22/17 07/10/18 History Acetaminophen [Acetaminophen Extra 1,000 mg PO DAILY 06/01/17 07/10/18 History Strength] Aspirin EC TAB* [Ecotrin EC Low 81 mg PO DAILY 06/01/17 07/10/18 History Dose 81 MG*] Al Hydrox/Mg Hydrox/Simet LIQ* 30 ml PO Q6H PRN udc 11/08/17 07/10/18 Rx [Maalox Plus*] Docusate CAP* [Colace Cap*] 100 mg PO BID PRN #60 cap 11/08/17 07/10/18 Rx Sitagliptin Phos/Metformin HCl 1 tab PO BID 01/26/18 07/10/18 History [Janumet 50-1,000 mg Tablet] Lactulose* 30 ml PO BID #1 udc 02/03/18 07/10/18 Rx Magnesium Oxide TAB* [MagOx 400 400 mg PO TID #60 tab 02/05/18 07/10/18 Rx TAB*] Torsemide TAB* [Demadex 20 MG*] 40 mg PO DAILY #60 tab 06/05/18 07/10/18 Rx Budesonide/Formote 160/4.5(NF) 2 puff INH BID 07/10/18 07/10/18 History [Symbicort 160/4.5 (NF)] Ferrous Sulfate TAB* 325 mg PO EVERY OTHER DAY 07/10/18 07/10/18 History Gabapentin CAP(*) [Neurontin 300 300 mg PO BID 07/10/18 07/10/18 History CAP(*)] Mometasone NASAL (NF) [Nasonex 1 spray BOTH NARES DAILY 07/10/18 07/10/18 History (NF)] Zinc Sulfate CAP* [Zinc-220 CAP*] 220 mg PO DAILY 07/10/18 07/10/18 History - History of Current Complaint Chief Complaint: EDAbdPain Stated Complaint: ABD PAIN PER PT Hx Obtained From: Patient Onset/Duration: Gradual Onset, Lasting Weeks - one week, Still Present Timing: Constant Severity Initially: Moderate Severity Currently: Moderate Pain Intensity: 4 Pain Scale Used: 0-10 Numeric Location: Other - pos: L lower ribs Radiates: No Character: Other: - aching Aggravating Factor(s): Nothing Alleviating Factor(s): Nothing Associated Signs And Symptoms: Positive: Cough, Other - pos: mild abd pain, fluid on abd, bilat pedal edema.. Negative: Fever, Chest Pain, Nausea, Vomiting , Diarrhea - Allergies/Home Medications Allergies/Adverse Reactions: Allergies Allergy/AdvReac Type Severity Reaction Status Date / Time Iodinated Contrast- Oral and Allergy Unknown Verified 07/10/18 13:50 IV Dye Reaction Details shellfish derived Allergy Unknown Verified 07/10/18 13:50 Reaction Details Home Medications: Home Medications Budesonide/Formote 160/4.5(NF) [Symbicort 160/4.5 (NF)] 2 puff INH BID 07/10/18 [History Confirmed 07/10/18] Ferrous Sulfate TAB* 325 mg PO EVERY OTHER DAY 07/10/18 [History Confirmed 07/10] Gabapentin CAP(*) [Neurontin 300 CAP(*)] 300 mg PO BID 07/10/18 [History Confirmed 07/10/18] Mometasone NASAL (NF) [Nasonex (NF)] 1 spray BOTH NARES DAILY 07/10/18 [History Confirmed 07/10/18] Zinc Sulfate CAP* [Zinc-220 CAP*] 220 mg PO DAILY 07/10/18 [History Confirmed ] PMH/Surg Hx/FS Hx/Imm Hx Previously Healthy: No Endocrine/Hematology History: Reports: Hx Diabetes Denies: Hx Anticoagulant Therapy, Hx Blood Disorders, Hx Blood Transfusions, Hx Bone Marrow Disease, Hx Systemic Lupus Erythematosus, Hx Sickle Cell Disease , Hx Thyroid Disease, Hx Anemia, Hx Unexplained Bleeding, Other Endocrine/ Hematological Disorders Cardiovascular History: Reports: Hx Angina, Hx Angioplasty, Hx Atrial Fibrillation, Hx Auto Implanted Cardiovert Defib, Hx Congestive Heart Failure, Hx Coronary Artery Disease, Hx Hypercholesterolemia, Hx Hypertension, Hx Pacemaker/ICD - 2008 Denies: Hx Aneurysm, Hx Cardiac Arrest, Hx Cardiomegaly, Hx Congenital Heart Disease, Hx Deep Vein Thrombosis, Hx Embolism, Hx Hypotension, Hx Myocardial Infarction, Hx Peripheral Vascular Disease, Hx Rheumatic Fever, Hx Syncope, Hx Valvular Heart Disease, Other Cardiovascular Problems/Disorders Respiratory History: Reports: Hx Asthma, Hx Chronic Obstructive Pulmonary Disease (COPD), Hx Sleep Apnea Denies: Hx Chronic Bronchitis, Hx Cystic Fibrosis, Hx Lung Cancer, Hx Pleural Effusion, Hx Pneumonia, Hx Pulmonary Edema, Hx Pulmonary Embolism, Hx Seasonal Allergies, Other Respiratory Problems/Disorders GI History: Reports: Hx Gastroesophageal Reflux Disease, Other GI Disorders - liver failure with ascites Denies: Hx Cirrhosis, Hx Crohn's Disease, Hx Diverticulosis, Hx Gall Bladder Disease, Hx Gastrointestinal Bleed, Hx Hiatal Hernia, Hx Irritable Bowel, Hx Jaundice, Hx Obstructive Bowel, Hx Ileostomy, Hx Pyloric Stenosis, Hx Ulcer History: Reports: Hx Kidney Stones - LEFT Denies: Hx Acute Renal Failure, Hx Benign Prostatic Hyperplasia, Hx Chronic Renal Failure, Hx Dialysis, Hx Kidney Infection, Hx Renal Disease, Other Problems/Disorders Musculoskeletal History: Reports: Hx Arthritis - BILATERAL HANDS AND LEGS Denies: Hx Back Problems, Hx Bursitis, Hx Congenital Bone Abnormalities, Hx Fibromyalgia, Hx Gout, Hx Orthopedic Injury, Hx Osteoporosis, Hx Scoliosis, Hx Tendonitis, Other Musculoskeletal History Sensory History: Reports: Hx Contacts or Glasses - for driving Denies: Hx Cataracts, Hx Eye Injury, Hx Glaucoma, Hx Deafness, Hx Hearing Aid , Hx Hearing Problem Opthamlomology History: Reports: Hx Contacts or Glasses - for driving Denies: Hx Cataracts, Hx Eye Injury, Hx Glaucoma Neurological History: Denies: Hx Dementia, Hx Headaches, Hx Migraine, Hx Seizures, Hx Transient Ischemic Attacks (TIA), Other Neuro Impairments/Disorders Psychiatric History: Reports: Hx Depression Denies: Hx Anxiety, Hx Attention Deficit Hyperactivity Disorder, Hx Eating Disorder, Hx Panic Disorder, Hx Post Traumatic Stress Disorder, Hx Inpatient Treatment, Hx Community Mental Health Tx, Hx Schizophrenia, Hx Bipolar Disorder , Hx Suicide Attempt, Hx of Violent Episodes Against Others, Hx Substance Abuse , Other Psychiatric Issues/Disorders - Surgical History Surgery Procedure, Year, and Place: [place]EMAK[place] [facility] [place]. [place]EN[place]CTOM[place] [facility] [place] MULTIPLE CYSTO, L STENT, L ESWL PROCEDURES [facility] [place] CARDIAC CATH X3 2009, 2016 Hx Anesthesia Reactions: No - Immunization History Date of Tetanus Vaccine: Unknown Infectious Disease History: No Infectious Disease History: Denies: Hx Clostridium Difficile, Hx Hepatitis, Hx Human Immunodeficiency Virus (HIV), Hx of Known/Suspected MRSA, Hx Shingles, Hx Tuberculosis, Traveled Outside the in Last 30 Days - Family History Known Family History: Positive: Cardiac Disease, Hypertension - Social History Occupation: Disabled Alcohol Use: None Hx Substance Use: No Substance Use Type: Reports: None Hx Tobacco Use: Yes Smoking Status (MU): Former Smoker Type: Cigarettes Amount Used/How Often: 2 PACKS A DAY Length of Time of Smoking/Using Tobacco: about 20 years,not sure Have You Smoked in the Last Year: No Review of Systems Negative: Fever Negative: Chest Pain Positive: Cough Positive: Abdominal Pain - mild, Other - pos: fluid on abd/hx ascites . Negative: Vomiting, Diarrhea, Nausea Positive: no symptoms reported Musculoskeletal: Other - pos: L lower rib pain Positive: Edema - bilateral pedal edema Skin: Negative Neurological: Negative Psychological: Normal All Other Systems Reviewed And Are Negative: Yes Physical Exam - Summary Physical Exam Summary: Appearance: Ill-appearing, moderate pain distress, well-nourished Skin: Warm, pale, dry Head: Normal Head/Face inspection, atraumatic Eyes: Conjunctiva clear ENT: Normal inspection Neck: Supple, no nodes, no JVD Respiratory: decreased breath sounds Cardio: RRR, No murmur, pulses normal, brisk capillary refill Abdomen: Large distended abd, but it is soft, nontender Bowel sounds: Present Musculoskeletal: Strength Intact/ROM intact, no calf tenderness, 2+ pitting edema. Non-reproducible L lower CP at level of costal margin in anterior axillary line. Psychological: Normal Neuro: Alert, muscle tone normal, no focal deficit Triage Information Reviewed: Yes Vital Signs On Initial Exam: Initial Vitals Temp Pulse Resp BP Pulse Ox 96.7 F 64 20 131/82 100 07/10/18 13:45 07/10/18 13:45 07/10/18 13:45 07/10/18 13:45 07/10/18 13:45 Vital Signs Reviewed: Yes Diagnostics - Vital Signs Vital Signs Temp Pulse Resp BP Pulse Ox 07/10/18 13:45 96.7 F 64 20 131/82 100 - Laboratory Result Diagrams: 07/10/18 19:15 07/10/18 15:57 Lab Statement: Any lab studies that have been ordered have been reviewed, and results considered in the medical decision making process. - Radiology CXR Radiology Interpretation Completed By: Radiologist Summary of Radiographic Findings: IMPRESSION: Cardiomegaly with pacemaker leads in place. Interstitial edema is noted. ED provider has reviewed this report. - EKG 1543 EKG Rhythm: Atrial Fibrillation - at [address] Segment: Non-Specific Ectopy: None EKG Comparison: No Significant Change - from EKG on 06/04/18 Summary of EKG Findings: An EKG at 1543 reveals a-fib at [address] bpm with nml IV CT, nml QTc, Left axis; poor R-wave progression in V1-V3; flat ST V1-V6. No acute changes. ED MD has reviewed and interpreted this EKG. Re-Evaluation - Re-Evaluation 1 Re-Evaluation Time: 17:54 Change: Unchanged Comment: Discussing results and plans for admission with patient. Patient is upset about admission, but agreeing to stay. Abdominal Pain Male Course/Dx - Course Course Of Treatment: Pt is a 57 y/o M with hx liver failure with ascites, CAD s/ p 3 stents, AICD, afib, CHF, DM, HTN, anemia, CKD presents with L-sided lower rib pain, mild LUQ abd pain onset a week ago. Patient also has fluid on his abd (ascites) and was sent to ED for paracentesis by his PCP, Dr. Hill. He wears 2L of home O2 all day. Critical lab value: troponin:0.04, doctor aware at 1706. Lab work shows BNP: 570. CXR shows "cardiomegaly with pacemaker leads in place. Interstitial edema is noted." An EKG at 1543 reveals a-fib at [address] bpm with nml IV CT, nml QTc, Left axis; poor R-wave progression in V1-V3; flat ST V1 -V6. No acute changes. No significant change from EKG on 06/04/18. Consulted with Dr. Gallardo, hospitalist, who will admit patient. Allergies noted. Pt medications reviewed this visit. Nurses note reviewed. Discussed with Dr. Gallardo, who upon evaluating pt, feels that pt's primary issue is the massive ascites that is impacting his breathing and pushing on his ribs and diaphragm. Dr. Gallardo arranged for Dr. Servin to do a therapeutic thoracentesis, and Dr. Servin withdrew approximately 1 liter of ascitic fluid and the fluid was sent for testing. Dr. Gallardo is aware of the elevated troponin level of 0.04, and his HCT of 25 (which is less than the last value of 28). Dr Gallardo feels that the troponin is elevated due to demand ischemia, and that it will be decreased after the paracentesis. He is arranging to draw a repeat troponin,a dn a repeat H/H. If they are stable or decreased he will discharge the patient from the ED. Dr. Bennett will print the discharge instructions for him if pt is able to be DC'd. - Diagnoses Differential Diagnosis/HQI/PQRI: ACS, AMI, Pneumonia, Other - ascites Provider Diagnoses: Left-sided chest pain, Elevated troponin, A-fib, Ascites, Anemia, Congestive heart failure - Provider Notifications Discussed Care Of Patient With: Sathya Gallardo - hospitalist Time Discussed With Above Provider: 17:51 Instructed by Provider To: Admit As Inpatient - Critical Care Time Critical Care Time: 30-74 min Discharge - Sign-Out/Discharge Documenting (check all that apply): Patient Departure - ADMIT Patient Received Moderate/Deep Sedation with Procedure: No - Discharge Plan Condition: Good Disposition: HOME Patient Education Materials: Acute Abdominal Pain (ED) Referrals: Erasmo Hill MD [Primary Care Provider] - 3 Days - Billing Disposition and Condition Condition: GOOD Disposition: Home - Attestation Statements Document Initiated by Scribe: Yes Documenting Scribe: Maura Ramsey Provider For Whom Scribe is Documenting (Include Credential): Dr. Laura Alex MD Scribe Attestation: Maura Griffiths scribed for Dr. Laura Alex MD on 07/10/18 at 2153. Scribe Documentation Reviewed: Yes Provider Attestation: The documentation as recorded by the Maura dove accurately reflects the service I personally performed and the decisions made by me, Dr. Laura Alex MD Status of Scribe Document: Viewed
[2018-07-10 16:34] LABS: ALT 15 U/L (7-52); AST 17 U/L (13-39); Activated Partial Thrombo Time 33.7 seconds (26.0-36.3); Albumin 3.7 g/dL (3.2-5.2); Albumin/Globulin Ratio 1.3 (1-3); Alkaline Phosphatase 95 U/L (34-104); Amylase 82 U/L (29-103); Anion Gap 7 mmol/L (2-11); BUN/Creatinine Ratio 18.9 (8-20); Blood Urea Nitrogen 30 mg/dL (6-24); C Reactive Protein 5.24 mg/L (<8.01); CO2 Carbon Dioxide 30 mmol/L (22-32); Calcium 8.9 mg/dL (8.6-10.3); Chloride 98 mmol/L (101-111); Creatine Kinase 104 U/L (10-223); EGFR African American 54.6 (>60); EGFR Non-African American 45.1 (>60); Globulin 2.8 g/dL (2-4); Glucose 141 mg/dL (70-100); INR 1.73 (0.82-1.09); Magnesium 1.7 mg/dL (1.9-2.7); Potassium 4.3 mmol/L (3.5-5.0); Sodium 135 mmol/L (135-145); Total Protein 6.5 g/dL (6.4-8.9)
[2018-07-10 16:35] LABS: ABS Basophils 0.1 10^3/ul (0-0.2); ABS Eosinophils 0.1 10^3/ul (0-0.6); ABS Monocytes 0.7 10^3/ul (0-0.8); ABS Neutrophils 6.1 10^3/ul (1.5-7.7); Hematocrit 25 % (42-52); Hemoglobin 7.6 g/dL (14.0-18.0); Lymphocyte % 12.2 %; Mean Corpuscular HGB Conc 30 g/dL (31-36); Mean Corpuscular Hemoglobin 21 pg (27-31); Mean Corpuscular Volume 69 fL (80-94); Platelet Count 214 10^3/uL (150-450); Red Blood Count 3.66 10^6 /uL (4.18-5.48); Red Cell Distribution Width 19 % (10.5-15); White Blood Count 7.9 10^3/uL (3.5-10.8)
[2018-07-10 16:38] LABS: BNP 570 pg/mL (<=100)
[2018-07-10 16:39] LABS: Troponin I 0.04 ng/mL (<0.04)
[2018-07-10 19:33] LABS: Hematocrit 25 % (42-52); Hemoglobin 7.7 g/dL (14.0-18.0)
[2018-07-10 20:20] LABS: Urine Appearance Clear; Urine Bacteria Absent (Absent); Urine Bilirubin Negative (Negative); Urine Blood 1+ (Negative); Urine Color Straw; Urine Glucose Negative (Negative); Urine Ketones Negative (Negative); Urine Nitrite Negative (Negative); Urine Protein Negative (Negative); Urine Red Blood Cell Trace(0-2/hpf) (Absent); Urine Specific Gravity 1.008 (1.010-1.030); Urine Squamous Epithelial Cell Present (Absent); Urine Urobilinogen Negative (Negative); Urine White Blood Cell Trace(0-5/hpf) (Absent)
[2018-07-10 20:31] LABS: Body Fluid Source OTH
[2018-07-10 20:34] VITALS: BP 126/77
[2018-07-10 21:39] LABS: Body Fluid Mono 29 %
--- NOTE | 2018-07-10 21:49 | CONS ---
CC: Dr. Erasmo Hill; Dr. Kelley CONSULTATION REPORT: DATE OF CONSULT: 07/10/18 REQUESTING PHYSICIAN: Emergency room, Dr. Bowling . CONSULTING PHYSICIAN: Dr. Sathya Gallardo. REASON FOR CONSULT: Evaluation for possible admission. HISTORY OF PRESENT ILLNESS: This is a 57-year-old male with known significant medical history of iro n deficiency anemia; chronic kidney disease; diabetes mellitus; COPD; chronic AFib, on anticoagulatio n; sleep apnea, uses CPAP; ascites due to right-sided heart failure; pulmonary hypertension; C. diff, history of alcohol abuse, presented to the emergency room this evening with chief complaint of left- sided abdominal pain, increased abdominal girth that started for about a week ago, progressively gett ing worse. 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 In the emergency room, the patient was seen by the ED staff. He was placed on 2 L oxygen and had diagnostic workup, which revealed a borderline tr oponin of 0.4. Medicine service was called for possible evaluation due to positive troponin and left -sided chest pain. The patient was seen and evaluated by me in the emergency room. He clearly denie s any chest pain to me. He reports his pain is in the left upper quadrant and he point right below h is costophrenic angle. He was with saturation 94% to 95% on room air in no distress. I called Dr. Goran marroquin, who kindly came in and saw the patient in the emergency room and performed bedside paracentesis from his left upper quadrant and he obtained about 1.5 L ascitic fluid. The patient tolerated the p rocedure well. Given his troponin and H and H, I did order repeat troponin, which was down to 0.02 a nd his hematocrit repeat was stable at 25. Therefore, I did speak with the ER attending and I did re commend the patient is safe to be discharged with close followup home with his PCP and motorcycle repair shop supervisor a nd referral for a GI doctor. PAST MEDICAL HISTORY: 1. History of CHF. 2. Iron deficiency anemia. 3. Chronic kidney disease. 4. Diabetes mellitus. 5. COPD. 6. AFib. 7. Sleep apnea, on CPAP. 8. 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 9. History of pulmonary hypertension. 10. History of alcohol abuse. 11. History of coronary artery disease, status post PTCA x3. 12. History of ICD placement. PAST SURGICAL HISTORY: Significant for: 1. Cardiac catheterization. 2. ICD placement. 3. Appendectomy. 4. Cystoscopy with stent placement. MEDICATIONS: He is on: 1. Tylenol p.r.n. 2. Albuterol inhaler. 3. Aspirin 81 daily. 4. Lipitor 80 daily. 5. Symbicort. 6. Zyrtec 10 mg daily. 7. Diltiazem 30 b.i.d. 8. Colace 100 b.i.d. 9. Iron 325 daily. 10. Neurontin 300 b.i.d. 11. Lactulose 30 mL t.i.d. 12. Magnesium oxide 400 mg p.o. t.i.d. 13. Toprol XL 25 daily. 14. Nitroglycerin p.r.n. 15. Omeprazole 20 daily. 16. Xarelto 20 daily. 17. Janumet b.i.d. 18. Torsemide 40 mg daily. 19. Zinc 220 mg daily. ALLERGIES: He is allergic to IODINE and SHELLFISH. FAMILY HISTORY: He lives alone. He has several siblings. His mother from chronic kidney disea se and heart disease. SOCIAL HISTORY: He quit smoking 15 years ago. He denies any recent alcohol abuse, but he used to umaña ve history of heavy alcohol drinking. REVIEW OF SYSTEMS: Denies any chest pain. Denies any shortness of breath, increased abdominal girth and distention. PHYSICAL EXAM: His vital signs are as follows: Temperature is 96.7, pulse 68, respiratory 24, press ure 123/74. Generally, he is awake, alert, pleasant in no apparent cardiac distress. He is able to lay flat for the paracentesis. Cooperative, pleasant. Head and Neck: Normocephalic, atraumatic. Sl ight pallor sclera. Moist mucus membrane. Lungs: Good airflow diminished at the bases. Fine minim al crackles. Cardiovascular: S1, S2. Regular rate and rhythm. Abdomen: Distended, large ascitic f luid. Extremity: +2 edema. DIAGNOSTIC STUDIES/LAB DATA: His CBC shows white count 7.9, hemoglobin 7.6, hematocrit 25, platelets 214. Repeat hematocrit is 7.7 and 25. INR 1.7. Chemistry: Significant for sodium 135, potassium 4 .3, chloride 98, BUN 30, creatinine 1.59, glucose 141, calcium 8.9, magnesium 1.7, AST 17, ALT 15. T roponin 0.04. BNP 570, previously he has been 625 and 655. Repeat troponin is down to 0.02. Chest x-ray shows cardiomegaly with prominent interstitial marking. EKG reveals atrial fibrillation, rate controlled at 74. IMPRESSION: This is a 57-year-old male who comes into emergency room with increased abdominal girth and abdominal discomfort with known history of decompensated liver failure will be discharged home th the recommendation to follow up with his primary care provider on Friday. Follow up with GI for possible outpatient arrangement of ongoing paracentesis. At the same time, my recommendation is to i ncrease his diuretic from torsemide 40 to possibly 60 or 80 mg and titrate it based on his renal func tion, which can be assessed as an outpatient and consider adding spironolactone 25 mg as well. Other mondragon, continue the rest of his medication without any interruption. [id number]/[facility] #: [id number]
--- NOTE | 2018-07-10 22:57 | OP ---
CC: Dr. Servin OPERATIVE REPORT: DATE OF OPERATION: 07/10/18 DATE OF : 60 SURGEON: Neil Servin MD. BACCARAT MANAGER: None. ANESTHESIOLOGIST: None. PRE-OP DIAGNOSIS: Ascites. POST-OP DIAGNOSIS: Ascites. OPERATIVE PROCEDURE: Sonographically guided paracentesis. INDICATIONS: The patient is a 57-year-old male who came to the hospital complaining of abdominal dis tention and need for drainage of ascites. He has a history of alcoholic cirrhosis and ascites, has h ad paracentesis twice in the last 6 months. He has been seen by Dr. Gallardo, who requests paracen tesis prior to sending the patient home. On examination, he appears a little older than stated age. Skin is warm and well perfused. He is no t tachycardic. He is not jaundiced. Abdomen is obese, soft, not particularly tender. No guarding, no rebound tenderness. There is a large scar in the right lower quadrant. Due to the body habitus, it is difficult to ascertain whether there is ascites by physical exam. A bedside ultrasound was carried out. There is really not much fluid on the right side, although the patient is lying leaning towards his left side. Ultrasound of the left side reveals fluid along the left side, only about a 2 cm rim between the abdominal wall and the viscera. It was discussed with the patient. It was decided that paracentesis would be carried out. He is und erstanding and agreeable to the procedure, understands the risks and the expected outcome. DESCRIPTION OF PROCEDURE: Therefore, the left mid abdomen is prepped with antiseptic, draped in a st erile fashion. Local infiltrative anesthesia is administered and skinny needle is used to identify c lear yellow fluid. The paracentesis catheter was placed and approximately 1 L of fluid is forthcomin g. After this, it comes rather sporadically and I have to keep flushing and manipulating the catheter to get little bits more. So, ultimately about 1200 mL were removed. Specimens were placed in sampl e containers at Dr. Gallardo's discretion. He will decide what testing needs to be done. The cath eter was removed. Bandage was placed. He tolerated the procedure well. [id number]/[facility] #: [id number]
--- NOTE | 2018-07-13 06:04 | PN ---
Progress Note - Progress Note Date of Service: 07/13/18 Note: E coli grew 50-75,000 Incidental finding as patient has no sxs lower count and will not treat at this time Patient has a rodriguez did not come in for UTI complaints.
[2018-07-13 14:45] LABS: Lactate Dehydrogenase, BF 160 U/L
== END 2018-07-10 20:33 | disposition home or self-care (01) ==
LOC: ED 13:44
DX: R07.89 Other chest pain (principal); R79.89 Other specified abnormal findings of blood chemistry; I48.91 Unspecified atrial fibrillation; Z79.01 Long term (current) use of anticoagulants; R18.8 Other ascites; E78.00 Pure hypercholesterolemia, unspecified; I50.9 Heart failure, unspecified; J44.9 Chronic obstructive pulmonary disease, unspecified; Z99.81 Dependence on supplemental oxygen; E11.22 Type 2 diabetes mellitus with diabetic chronic kidney disease; I12.9 Hypertensive chronic kidney disease with stage 1 through stage 4 chronic kidney disease, or unspecified chronic kidney disease; Z79.84 Long term (current) use of oral hypoglycemic drugs; N18.9 Chronic kidney disease, unspecified; K21.9 Gastro-esophageal reflux disease without esophagitis; Z79.82 Long term (current) use of aspirin; Z95.5 Presence of coronary angioplasty implant and graft; Z95.810 Presence of automatic (implantable) cardiac defibrillator; Z91.041 Radiographic dye allergy status; Z91.013 Allergy to seafood; Z82.49 Family history of ischemic heart disease and other diseases of the circulatory system; Z84.1 Family history of disorders of kidney and ureter; Z87.891 Personal history of nicotine dependence
CPT/HCPCS: 36415; 49083; 71046; 80053; 81003; 81015; 82140; 82150; 82550; 83605; 83615; 83690; 83735; 83880; 84157; 84484; 85014; 85018; 85025; 85610; 85730; 86140; 87040; 87077; 87086; 87186; 87205; 89051; 93005; 99283

== ENCOUNTER 2019-05-13 11:27 | Observation (INO) | payer MEDICARE, MEDICAID, OTHER ==
--- NOTE | 2019-05-13 11:49 | ED ---
Complex/Multi-Sys Presentation - HPI Summary HPI Summary: 58 year old M presenting to [facility] via EMS with a chief complaint of his defibrillator going off multiple times since earlier this week, three of which occurred today. Patient reports intermittent chest pain for 1 week that lasts for 1 hour, shortness of breath and nausea for 1 week, and a sore throat for 1 month. Per EMS the patient was given 324 mg of Aspirin and 1 sublingual nitroglycerin which relieved his pain. Patient denies any fever, vomiting, or diarrhea. He has no known travel outside of [place]. The patient is seen by Dr. German for cardiology. Medication list reviewed. Allergy list reviewed. Home Medications Medication Instructions Recorded Confirmed Type Albuterol HFA INHALER* [Ventolin 1 puff INH BID PRN 12/07/11 07/10/18 History HFA Inhaler*] Omeprazole CAP (NF) [Prilosec CAP* 20 mg PO DAILY 07/22/16 07/10/18 History 20 MG] Cetirizine* [ZyrTEC 10 MG TAB*] 10 mg PO DAILY 04/22/17 07/10/18 History Metoprolol Succinate XL TAB* 25 mg PO DAILY 04/22/17 07/10/18 History [Toprol XL TAB*] Atorvastatin* [Lipitor 80 MG*] 80 mg PO DAILY 05/02/17 07/10/18 History Nitroglycerin TAB 0.4 MG* 0.4 mg SL Q5M PRN #25 tab 05/04/17 07/10/18 Rx Diltiazem TAB* [Cardizem 30 MG 30 mg PO BID 05/21/17 07/10/18 History Tab*] Rivaroxaban TAB(*) [Xarelto 20 mg] 20 mg PO DAILY 05/22/17 07/10/18 History Acetaminophen [Acetaminophen Extra 1,000 mg PO DAILY 06/01/17 07/10/18 History Strength] Aspirin EC TAB* [Ecotrin EC Low 81 mg PO DAILY 06/01/17 07/10/18 History Dose 81 MG*] Al Hydrox/Mg Hydrox/Simet LIQ* 30 ml PO Q6H PRN udc 11/08/17 07/10/18 Rx [Maalox Plus*] Docusate CAP* [Colace Cap*] 100 mg PO BID PRN #60 cap 11/08/17 07/10/18 Rx Sitagliptin Phos/Metformin HCl 1 tab PO BID 01/26/18 07/10/18 History [Janumet 50-1,000 mg Tablet] Lactulose* 30 ml PO BID #1 udc 02/03/18 07/10/18 Rx Magnesium Oxide TAB* [MagOx 400 400 mg PO TID #60 tab 02/05/18 07/10/18 Rx TAB*] Torsemide TAB* [Demadex 20 MG*] 40 mg PO DAILY #60 tab 06/05/18 07/10/18 Rx Budesonide/Formote 160/4.5(NF) 2 puff INH BID 07/10/18 07/10/18 History [Symbicort 160/4.5 (NF)] Ferrous Sulfate TAB* 325 mg PO EVERY OTHER DAY 07/10/18 07/10/18 History Mometasone NASAL (NF) [Nasonex 1 spray BOTH NARES DAILY 07/10/18 07/10/18 History (NF)] Zinc Sulfate CAP* [Zinc-220 CAP*] 220 mg PO DAILY 07/10/18 07/10/18 History Mometasone Furoate 0.1 % EX 04/26/19 04/26/19 History Thiamine TAB* [Vitamin B-1 TAB*] 100 mg PO DAILY 04/26/19 04/26/19 History - History Of Current Complaint Time Seen by Provider: 05/13/19 11:33 Hx Obtained From: Patient Onset/Duration: Lasting Days Timing: Intermittent, Lasting: - 1 hour Aggravating Factor(s): None Alleviating Factor(s): Medication Associated Signs And Symptoms: Positive: SOB, Chest Pain, Nausea, Other - Sore throat. Negative: Vomiting, Diarrhea, Fever - Allergies/Home Medications Allergies/Adverse Reactions: Allergies Allergy/AdvReac Type Severity Reaction Status Date / Time Iodinated Contrast Media Allergy Unknown Verified 05/13/19 12:17 [Iodinated Contrast- Oral Reaction and IV Dye] Details shellfish derived Allergy Unknown Verified 05/13/19 12:17 Reaction Details Home Medications: Home Medications Albuterol HFA INHALER* [Ventolin HFA Inhaler*] 1 puff INH BID PRN 12/07/11 [ History Confirmed 05/13/19] Omeprazole CAP (NF) [Prilosec CAP* 20 MG] 20 mg PO DAILY 07/22/16 [History Confirmed 05/13/19] Cetirizine* [ZyrTEC 10 MG TAB*] 10 mg PO DAILY 04/22/17 [History Confirmed 05/12] Metoprolol Succinate XL TAB* [Toprol XL TAB*] 25 mg PO DAILY 04/22/17 [History Confirmed 05/13/19] Atorvastatin* [Lipitor 80 MG*] 80 mg PO DAILY 05/02/17 [History Confirmed ] Nitroglycerin TAB 0.4 MG* 0.4 mg SL Q5M PRN #25 tab 05/04/17 [Rx Confirmed 05/12] Diltiazem TAB* [Cardizem 30 MG Tab*] 30 mg PO BID 05/21/17 [History Confirmed ] Rivaroxaban TAB(*) [Xarelto 20 mg] 20 mg PO DAILY 05/22/17 [History Confirmed ] Acetaminophen [Acetaminophen Extra Strength] 1,000 mg PO Q12H PRN 06/01/17 [ History Confirmed 05/13/19] Aspirin EC TAB* [Ecotrin EC Low Dose 81 MG*] 81 mg PO DAILY 06/01/17 [History Confirmed 05/13/19] Al Hydrox/Mg Hydrox/Simet LIQ* [Maalox Plus*] 30 ml PO Q6H PRN udc 11/08/17 [ Rx Confirmed 05/13/19] Docusate CAP* [Colace Cap*] 100 mg PO BID PRN #60 cap 11/08/17 [Rx Confirmed ] Sitagliptin Phos/Metformin HCl [Janumet 50-1,000 mg Tablet] 1 tab PO BID [History Confirmed 05/13/19] Lactulose* 30 ml PO BID #1 udc 02/03/18 [Rx Confirmed 05/13/19] Magnesium Oxide TAB* [MagOx 400 TAB*] 400 mg PO TID #60 tab 02/05/18 [Rx Confirmed 05/13/19] Budesonide/Formote 160/4.5(NF) [Symbicort 160/4.5 (NF)] 2 puff INH BID 07/10/18 [History Confirmed 05/13/19] Ferrous Sulfate TAB* 325 mg PO DAILY 07/10/18 [History Confirmed 05/13/19] Mometasone NASAL (NF) [Nasonex (NF)] 1 spray BOTH NARES DAILY 07/10/18 [History Confirmed 05/13/19] Mometasone Furoate 0.1 % EX BID 04/26/19 [History Confirmed 05/13/19] Thiamine TAB* [Vitamin B-1 TAB*] 100 mg PO DAILY 04/26/19 [History Confirmed ] Glimepiride (NF) 4 mg PO DAILY 05/13/19 [History Confirmed 05/13/19] Metolazone TAB* [Zaroxolyn TAB*] 2.5 mg PO MOWEFR 05/13/19 [History Confirmed ] Torsemide TAB* [Demadex 20 MG*] 60 mg PO DAILY 05/13/19 [History Confirmed 05/12] Zinc Oxide 16% PASTE* [Sidney's Butt paste] 1 applic TOPICAL BID 05/13/19 [ History Confirmed 05/13/19] PMH/Surg Hx/FS Hx/Imm Hx Endocrine/Hematology History: Reports: Hx Diabetes Denies: Hx Anticoagulant Therapy, Hx Blood Disorders, Hx Blood Transfusions, Hx Bone Marrow Disease, Hx Systemic Lupus Erythematosus, Hx Sickle Cell Disease , Hx Thyroid Disease, Hx Anemia, Hx Unexplained Bleeding, Other Endocrine/ Hematological Disorders Cardiovascular History: Reports: Hx Angina, Hx Angioplasty, Hx Atrial Fibrillation, Hx Auto Implanted Cardiovert Defib, Hx Congestive Heart Failure, Hx Coronary Artery Disease, Hx Hypercholesterolemia, Hx Hypertension, Hx Pacemaker/ICD - RECENTLY Denies: Hx Aneurysm, Hx Cardiac Arrest, Hx Cardiomegaly, Hx Congenital Heart Disease, Hx Deep Vein Thrombosis, Hx Embolism, Hx Hypotension, Hx Myocardial Infarction, Hx Peripheral Vascular Disease, Hx Rheumatic Fever, Hx Syncope, Hx Valvular Heart Disease, Other Cardiovascular Problems/Disorders Respiratory History: Reports: Hx Asthma, Hx Chronic Obstructive Pulmonary Disease (COPD), Hx Sleep Apnea Denies: Hx Chronic Bronchitis, Hx Cystic Fibrosis, Hx Lung Cancer, Hx Pleural Effusion, Hx Pneumonia, Hx Pulmonary Edema, Hx Pulmonary Embolism, Hx Seasonal Allergies, Other Respiratory Problems/Disorders GI History: Reports: Hx Gastroesophageal Reflux Disease, Other GI Disorders - liver failure with ascites Denies: Hx Cirrhosis, Hx Crohn's Disease, Hx Diverticulosis, Hx Gall Bladder Disease, Hx Gastrointestinal Bleed, Hx Hiatal Hernia, Hx Irritable Bowel, Hx Jaundice, Hx Obstructive Bowel, Hx Ileostomy, Hx Pyloric Stenosis, Hx Ulcer History: Reports: Hx Kidney Stones - LEFT Denies: Hx Acute Renal Failure, Hx Benign Prostatic Hyperplasia, Hx Chronic Renal Failure, Hx Dialysis, Hx Kidney Infection, Hx Renal Disease, Other Problems/Disorders Musculoskeletal History: Reports: Hx Arthritis - BILATERAL HANDS AND LEGS Denies: Hx Back Problems, Hx Bursitis, Hx Congenital Bone Abnormalities, Hx Fibromyalgia, Hx Gout, Hx Orthopedic Injury, Hx Osteoporosis, Hx Scoliosis, Hx Tendonitis, Other Musculoskeletal History Sensory History: Reports: Hx Contacts or Glasses - for driving Denies: Hx Cataracts, Hx Eye Injury, Hx Glaucoma, Hx Deafness, Hx Hearing Aid , Hx Hearing Problem Opthamlomology History: Reports: Hx Contacts or Glasses - for driving Denies: Hx Cataracts, Hx Eye Injury, Hx Glaucoma Neurological History: Denies: Hx Dementia, Hx Headaches, Hx Migraine, Hx Seizures, Hx Transient Ischemic Attacks (TIA), Other Neuro Impairments/Disorders Psychiatric History: Reports: Hx Depression Denies: Hx Anxiety, Hx Attention Deficit Hyperactivity Disorder, Hx Eating Disorder, Hx Panic Disorder, Hx Post Traumatic Stress Disorder, Hx Inpatient Treatment, Hx Community Mental Health Tx, Hx Schizophrenia, Hx Bipolar Disorder , Hx Suicide Attempt, Hx of Violent Episodes Against Others, Hx Substance Abuse , Other Psychiatric Issues/Disorders - Surgical History Surgery Procedure, Year, and Place: PACEMAKER [facility] [place] 2008. APPENDECTOMY [facility] [place]. MULTIPLE CYSTO, L STENT, L ESWL PROCEDURES [facility] [place]. CARDIAC CATH X3 2009, 2016 Hx Anesthesia Reactions: No - Immunization History Date of Tetanus Vaccine: Unknown Infectious Disease History: Denies: Hx Clostridium Difficile, Hx Hepatitis, Hx Human Immunodeficiency Virus (HIV), Hx of Known/Suspected MRSA, Hx Shingles, Hx Tuberculosis - Family History Known Family History: Positive: Cardiac Disease, Hypertension - Social History Alcohol Use: None Alcohol Amount: 2-3 PER DAY, former use Hx Substance Use: No Substance Use Type: Reports: None Hx Tobacco Use: Yes Smoking Status (MU): Former Smoker Type: Cigarettes Amount Used/How Often: 2 PACKS A DAY Length of Time of Smoking/Using Tobacco: about 20 years,not sure Have You Smoked in the Last Year: No Review of Systems Negative: Fever Positive: Sore Throat Positive: Chest Pain Positive: Shortness Of Breath Positive: Nausea. Negative: Vomiting, Diarrhea All Other Systems Reviewed And Are Negative: Yes Physical Exam - Summary Physical Exam Summary: Constitutional: Well-developed, Well-nourished, Alert. (-) Distressed Skin: Warm, Dry HENT: Normocephalic; Atraumatic Eyes: Conjunctiva normal Neck: Musculoskeletal ROM normal neck. (-) JVD, (-) Stridor, (-) Tracheal deviation Cardio: Rhythm regular, rate normal, Heart sounds normal; Intact distal pulses; Radial pulses are 2+ and symmetric. (-) Murmur; Good pulses bilaterally in radius, No calf tenderness, No venous cords, No pain with dorsiflexion of foot. Pulmonary/Chest wall: Effort normal. (-) Respiratory distress, (-) Wheezes, (-) Rales Abd: Soft, (-) tenderness, (-) Distension, (-) Guarding, (-) Rebound Musculoskeletal: (-) Edema Lymph: (-) Cervical adenopathy Neuro: Alert, Oriented x3 Psych: Mood and affect Normal Triage Information Reviewed: Yes Vital Signs Reviewed: Yes Procedures - Sedation Patient Received Moderate/Deep Sedation with Procedure: No Diagnostics - Laboratory Result Diagrams: 05/13/19 12:00 05/13/19 12:00 Lab Statement: Any lab studies that have been ordered have been reviewed, and results considered in the medical decision making process. - Radiology Chest x-ray Radiology Interpretation Completed By: Radiologist Summary of Radiographic Findings: 1. No acute cardiopulmonary process by radiograph. 2. Left chest wall AICD with similar cardiomegaly. ED physician has reviewed this report. - EKG 12:03 Cardiac Rate: Other Rate - 70 BPM EKG Rhythm: Atrial Fibrillation Summary of EKG Findings: No ischemic changes. ED physician has reviewed and interpreted this EKG. Re-Evaluation - Re-Evaluation First Eval Re-Evaluation Time: 12:10 Comment: [employer] hostess party sales representative called, he will try to find someone to come in. Second Eval Re-Evaluation Time: 15:00 Comment: Discussed with Dr. Kelley who states that the pacemaker interrogation revealed no defibrillations. Given his chest pain the patient needs to be admitted for a stress test. The patient will be given IV metoprolol and a nitroglycerin patch. Complex Multi-Symp Course/Dx Assessment/Plan: Patient is here with one week of chest pain and feeling like his defibrillator is going off. Patient also complains of sore throat, mild shortness of breath, and potentially having a fever although patient is not a great historian about this. Patient had an EKG performed for atrial fibrillation and RVR with no ischemic changes. Patient had blood work performed which was grossly unremarkable set of hypomagnesemia. Patient is given 2 g of IV magnesium. Cardiology was called and they evaluated the patient in person and interrogated the patient's pacemaker. Patient did not have any episodes of defibrillation. However, given patient's chest pain, cardiology wanted patient admitted for stress test. - Diagnoses Provider Diagnoses: Chest pain, Hypomagnesemia - Physician Notifications Discussed Care Of Patient With: Arnulfo Kelley Time Discussed With Above Provider: 14:12 Instructed by Provider To: Other - Discussed with Dr. Kelley who will come to see the patient. [15:14] Discussed with Dr. Ta who will admit the patient. Discharge ED - Sign-Out/Discharge Documenting (check all that apply): Patient Departure - Discharge Plan Condition: Stable Disposition: ADMITTED TO [facility] Referrals: Erasmo Hill MD [Primary Care Provider] - - Billing Disposition and Condition Condition: STABLE Disposition: Admitted to [facility] - Attestation Statements Document Initiated by Beni: Yes Documenting Alizeibe: Velia Dunne Provider For Whom Beni is Documenting (Include Credential): Sina Whelan MD Scribe Attestation: Velia Griffiths scribed for Sina Whelan MD on 05/13/19 at 1607. Scribe Documentation Reviewed: Yes Provider Attestation: The documentation as recorded by the Velia dove accurately reflects the service I personally performed and the decisions made by me, Sina Whelan MD Status of Scribe Document: Viewed
--- OUTSIDE RECORDS SUMMARY | 2019-05-13 12:12 | XMS REPORT ---
:1960 Author Organization [facility] Care Team Providers Name Role Phone Unavailable Unavailable Unavailable Problems Condition Condition Condition Status Onset Resolution Last Treating Comments Name Details Category Date Date Treatment Clinician Date Chronic Chronic Diagnosis Active Sarah diastolic diastolic 1- Malnoske (congestive (congestive RN ) heart ) heart failure failure Chronic Chronic Diagnosis Active Sarah kidney kidney 05-10 [place] disease, disease, RN unspecified unspecified Type 2 Type 2 Diagnosis Active Sarah diabetes diabetes 1- Mal[place]ke mellitus mellitus RN without without complicatio complicatio ns ns 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 pectoris Unspecified Unspecified Diagnosis Active Sarah atrial atrial 1- Mal[place]ke fibrillatio fibrillatio RN n n Chronic Chronic Diagnosis Active Sarah obstructive obstructive 1- Mal[place]ke pulmonary pulmonary RN disease, disease, unspecified unspecified Obstructive Obstructive Diagnosis Active Sarah sleep apnea sleep apnea Mal[place]ke (adult) (adult) RN (pediatric) (pediatric) Adult Adult Diagnosis Active Sarah failure to failure to [place] 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 [facility] Diagnosis Active Sarah (current) (current) [place] use of use of RN anticoagula anticoagula nts nts [facility] 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 Diagnosis Active Sarah (current) (current) [place] use of use of RN aspirin aspirin Hyperlipide Hyperlipide Diagnosis Active Sarah tuan, tuan, Mal[place]ke unspecified unspecified RN Cardio edema Cardiovasc Resolve 2018-03-13 Catia mendiola 1-03 10:00:00 [place] 11:00: 00 Cardio knowledge/s Cardiovasc Resolve 2018-03-13 Catia kill ular d 1-03 10:00:00 [place] deficit: pt 11:00: 00 Cardio knowledge/s Cardiovasc Resolve 2018-03-13 Catiamayuri fletcher ular d - 10:00:00 [place] deficit: cg 11:00: 00 Respiratory dyspnea Respirator Resolve 2018-03-13 Catia bradford y d - 10:00:00 [place] 11:00: 00 Endo/Viktor diabetic Endo/Viktor Resolve 2018-02-25 Catia foot care d - 11:25:00 [place] 11:00: 00 Endo/Viktor anti-coagul Endo/Viktor Resolve 2018-02-25 Catia ation d 02-19 11:25:00 [place] therapy 11:00: 00 Nutrition knowledge/s Nutrition Resolve 2018-02-25 Catia kill d 02-19 11:25:00 [place] deficit: pt 11:00: 00 Nutrition knowledge/s Nutrition Resolve 2018-02-25 Catia kill d 02-19 11:25:00 [place] deficit: cg 11:00: 00 Nutrition nutritional Nutrition Resolve 2018-02-25 Catia restriction d 02-19 11:25:00 [place] s 11:00: 00 Elimination bowel Eliminatio Resolve 2018-02-25 Catia incontinenc n d 02-19 11:25:00 [place] e 11:00: 00 Elimination knowledge/s Eliminatio Resolve 2018-02-25 Catia kill n d 02-19 11:25:00 [place] deficit: pt 11:00: 00 Neuro confusion Neuro/Emot Resolve 2018-03-27 Catia present ion d - 13:00:00 [place] 11:00: 00 Neuro impaired Neuro/Emot Resolve 2018-03-27 Catia decision-ma ion d 02-19 13:00:00 [place] addison 11:00: 00 Neuro memory Neuro/Emot Resolve 2018-03-27 Catia deficit ion d 02-19 13:00:00 [place] needing 11:00: supervision 00 Neuro knowledge/s Neuro/Emot Resolve 2018-2018-02-25 Catia fletcher ion d 1-03 11:25:00 [place] deficit: pt 11:00: 00 Activity ADL Activity Resolve 2018-03-13 Catia assistance d 1-03 10:00:00 [place] required 11:00: 00 Activity self-care Activity Resolve 2018-03-13 Catia deficit d 1-03 10:00:00 [place] 11:00: 00 Safety knowledge/s Safety Resolve 2018-03-13 Catia kill d 1-03 10:00:00 [place] deficit: pt 11:00: 00 Safety knowledge/s Safety Resolve 2018-03-13 Catia kill d 1-03 10:00:00 [place] deficit: cg 11:00: 00 Safety fall risk Safety Resolve 2018-03-13 Catia factor d 1-03 10:00:00 [place] present 11:00: 00 Safety risk for Safety Resolve 2018-03-13 Catia fraseriza d 1-03 10:00:00 [place] tion 11:00: 00 Safety can be left Safety Resolve 2018-03-13 Catiageremias tamez for d 1-03 10:00:00 [place] only short 11:00: periods 00 Medication oral med Meds Resolve 2018-02-25 Catia assistance d 1-03 11:25:00 [place] required 11:00: 00 Musculoskel knowledge/s Musculoske Resolve 2018-03-13 Catia etal kill letal d 1-03 10:00:00 [place] deficit: pt 11:00: 00 Musculoskel knowledge/s Musculoske Resolve 2018-03-13 Catia etal kill letal d 1-03 10:00:00 [place] deficit: cg 11:00: 00 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 PT/OT: Resolve 2018-12-29 Catia yousif rdination Balance/En d -03 17:15:00 [place] deficit durance 11:00: 00 Social support FEDE: Resolve 2018-05-08 Catia Services deficit Social d 1-03 10:00:00 [place] Services 11:00: 00 Gait/Locomo gait PT/OT: Resolve 2018-12-29 Catia ocampo deficit Gait/Locom d 02-19 17:15:00 [place] problems otion 11:00: 00 Cardio pacemaker/I Cardiovasc Resolve 2018-03-13 Catia ABDULAZIZ ular d 02-25 10:00:00 [place] 11:25: 00 Integument skin Integument Resolve 2018-03-13 Catia integrity d 02-25 10:00:00 [place] risk 11:25: 00 Bed mobility/tr PT/OT: Bed Resolve 2018-12-29 Deejay Mobility/Tr laurenfer Mobility/T d 02-25 17:15:00 [place] sigala device ransfer 14:50: [id number] present 00 Bed transfer PT/OT: Bed Resolve 2018-12-29 Deejay Mobility/Tr deficit: Mobility/T d 02-25 17:15:00 [place] sigala toilet/comm ransfer 14:50: [id number] 00 Bed transfer PT/OT: Bed Resolve 2018-12-29 Deejay Mobility/Tr deficit: Mobility/T d 02-25 17:15:00 [place] sigala shower/tub ransfer 14:50: [id number] 00 Bed knowledge/s PT/OT: Bed Resolve 2018-12-29 Deejay Mobility/Tr kill Mobility/T d 02-25 17:15:00 [place] sigala deficit: pt ransfer 14:50: [id number] 00 Balance/End knowledge/s PT/OT: Resolve 2018-12-29 Deejay yousif kill Balance/En d 02-25 17:15:00 [place] deficit: pt durance 14:50: [id number] 00 Environment knowledge/s PT/OT: Resolve 2018-12-29 Deejay hennessy kill Environmen d 02-25 17:15:00 [place] deficit: pt t 14:50: [id number] 00 Environment environment PT/OT: Resolve 2018-12-29 Deejay kasper barriers Environmen d 02-25 17:15:00 [place] t 14:50: [id number] 00 Gait/Locomo gait PT/OT: Resolve 2018-12-29 Deejay tisimran assistive Gait/Locom d 02-25 17:15:00 Garibay problems device otion 14:50: [id number] present 00 Gait/Locomo knowledge/s PT/OT: Resolve 2018-12-29 Deejay ocampo kill Gait/Locom d 02-25 17:15:00 Garibay problems deficit: pt otion 14:50: [id number] 00 Cardio edema Cardiovasc Resolve 2018-05-27 Catia ular d 208 10:00:00 [place] 13:00: 00 Cardio pacemaker/I Cardiovasc Resolve 2018-05-27 Catia CINTRON ular d 03-27 10:00:00 [place] 13:00: 00 Respiratory asthma Respirator Resolve 2018-03-27 Catia y d 03-27 13:00:00 [place] 13:00: 00 Neuro knowledge/s Neuro/Emot Resolve 2018-03-27 Catia kill ion d 03-27 13:00:00 [place] deficit: pt 13:00: 00 Activity self-care Activity Resolve 2018-05-27 Catia deficit d 03-27 10:00:00 [place] 13:00: 00 Pain frequent Pain Mgmt Resolve 2018-04-17 Catia pain d 04-09 09:00:00 [place] 14:00: 00 Respiratory dyspnea Respirator Resolve 2018-04-17 Catia present y d 04-09 09:00:00 [place] 14:00: 00 Respiratory asthma Respirator Resolve 2018-04-17 Catia y d 2 09:00:00 [place] 14:00: 00 Endo/Viktor anti-coagul Endo/Viktor Active 2018- Catia ation 04-09 [place] therapy 14:00: 00 Nutrition nutritional Nutrition Resolve 2018-04-09 Catia restriction d 2- 14:00:00 [place] s 14:00: 00 Neuro confusion Neuro/Emot Resolve 2018-04-17 Catia present ion d 2- 09:00:00 [place] 14:00: 00 Neuro knowledge/s Neuro/Emot Resolve 2018-04-24 Catia kill ion d 2- 10:00:00 [place] deficit: pt 14:00: 00 Neuro anxiety Neuro/Emot Resolve 2018-04-09 Catia present ion d 2-21 14:00:00 [place] 14:00: 00 Cardio knowledge/s Cardiovasc Resolve 2018-05-27 Vonnie kill ular d 2- 10:00:00 [place] deficit: pt 09:50: [id number] 00 Cardio knowledge/s Cardiovasc Resolve 2018-05-27 Vonnie kill ular d 2 10:00:00 [place] deficit: cg 09:50: [id number] 00 Respiratory lung sounds Respirator Resolve 2018-04-17 Vonnie deficit y d 2 09:00:00 [place] 09:50: [id number] 00 Medication oral med Meds Resolve 2018-04-24 Catia assistance d 3- 10:00:00 [place] required 09:00: 00 Medication injectable Meds Resolve 2018-04-24 Catia med d 3- 10:00:00 [place] assistance 09:00: required 00 Respiratory dyspnea Respirator Resolve 2018-05-08 Catia present y d 3 10:00:00 [place] 10:00: 00 Respiratory asthma Respirator Resolve 2018-2018-04-27 Catia y d 3 09:00:00 [place] 10:00: 00 Nutrition nutritional Nutrition Resolve 2018-04-27 Catia restriction d 3- 09:00:00 [place] s 09:00: 00 Nutrition nutritional Nutrition Resolve 2018-05-27 Catia restriction d 3 10:00:00 [place] s 09:00: 00 Respiratory oxygen Respirator Resolve 2018-05-27 Catia treatments y d 3 10:00:00 [place] in home Respiratory knowledge/s Respirator Resolve 2018-2018-05-20 Catia kill y d 3- 11:00:00 [place] deficit: pt 10:00: 00 Respiratory dyspnea Respirator Resolve 2018-05-27 Catia present y d 3- 10:00:00 [place] 10:00: 00 Endo/Viktor diabetic Endo/Viktor Resolve 2018-2018-05-20 Catia foot care d 05-15 11:00:00 [place] 10:00: 00 Nutrition changing Nutrition Resolve 2018-05-27 Catia weight/appe d 05-15 10:00:00 [place] tite 10:00: 00 Neuro confusion Neuro/Emot Resolve 2018-06-19 Catia present ion d 05-15 09:00:00 [place] 10:00: 00 Neuro memory Neuro/Emot Resolve 2018-06-19 Catia deficit ion d 05-15 09:00:00 [place] needing 10:00: supervision 00 Activity ADL Activity Resolve 2018-06-06 Catia assistance d 05-15 12:00:00 [place] required 10:00: 00 Musculoskel transfer Musculoske Resolve 2018-05-27 Catia etal assistance letal d 05-15 10:00:00 [place] required 10:00: 00 Social support FEDE: Active Catia Services deficit Social 05-15 [place] Services 10:00: 00 Neuro knowledge/s Neuro/Emot Resolve 2018-06-19 Catia kill ion d 05-20 09:00:00 [place] deficit: pt 11:00: 00 Safety can be left Safety Resolve 2018-06-17 Catia alone for d 4- 09:00:00 [place] only short 11:00: periods 00 Respiratory knowledge/s Respirator Resolve 2018-2018-05-22 Roslyn kill y d 4- 09:00:00 [place] deficit: pt 10:00: [id number] 00 Social knowledge/s FEDE: Resolve 2018-2018-05-21 [place] Services kill Social d 4-04 10:00:00 [place] deficit - Services 10:00: [id number] pt 00 Social knowledge/s FEDE: Resolve 2018-05-21 [place] Services kill Social d 4-04 10:00:00 [place] deficit - Services 10:00: [id number] cg 00 24 Hr Diet nutrition NT: 24Hr Active Silvana intake Diet 4-05 [place] deficit 09:50: [id number] 00 24 Hr Diet knowledge/s NT: 24Hr Resolve 2018-05-22 Silvana kill Diet d 05-22 09:50:00 [place] deficit - 09:50: [id number] pt 00 Nutritional food NT: Resolve 2018-05-22 Silvana Barrier storage/pre Barriers d 05-22 09:50:00 [place] p deficit 09:50: [id number] 00 Respiratory lung sounds Respirator Resolve 2018-05-27 Vonnie deficit y d 05-25 10:00:00 [place] 09:10: [id number] 00 Respiratory nebulizer Respirator Resolve 2018-05-27 Vonnie treatment y d 05-25 10:00:00 [place] in home 09:10: [id number] 00 Neuro impaired Neuro/Emot Resolve 2018-06-19 Catia toscano-ma ion d 05-27 09:00:00 [place] addison 10:00: 00 Test/Treatm tests Test/Injec Resolve 2018-06-09 Vonnie ent ordered t/Chele d 05-28 09:05:00 [place] [id number] Cardio knowledge/s Cardiovasc Resolve 2018-06-06 Catia blackar d 12 12:00:00 [place] deficit: pt 09:00: 00 Cardio pacemaker/I Cardiovasc Resolve 2018-06-06 Catia CINTRON ular d 12 12:00:00 [place] 09:00: 00 Cardio edema Cardiovasc Resolve 2018-06-06 Catia blackar d 412 12:00:00 [place] 09:00: 00 Respiratory dyspnea Respirator Resolve 2018-05-29 Catia present y d 412 09:00:00 [place] 09:00: 00 Respiratory oxygen Respirator Resolve 2018-05-29 Catia treatments y d 412 09:00:00 [place] in home 09:00: 00 Nutrition nutritional Nutrition Resolve 2018-05-29 Catia restriction d 4-12 09:00:00 [place] s 09:00: 00 Respiratory dyspnea Respirator Resolve 2018-06-10 Vonnie present y d 4-15 09:00:00 [place] 09:00: [id number] 00 Respiratory oxygen Respirator Resolve 2018-06-10 Vonnie treatments y d 4-15 09:00:00 [place] in home 09:00: [id number] 00 Respiratory lung sounds Respirator Resolve 2018-06-06 Vonnie deficit y d 4-15 12:00:00 [place] 09:00: [id number] 00 Endo/Viktor diabetic Endo/Viktor Resolve 2018-06-06 Catia foot care d 4-19 12:00:00 [place] 17:00: 00 Nutrition nutritional Nutrition Resolve 2018-07-23 Catia restriction d 419 11:15:00 [place] s 17:00: 00 Nutrition changing Nutrition Resolve 2018-06-10 Catia weight/appe d 06-05 09:00:00 [place] tite 17:00: 00 Neuro anxiety Neuro/Emot Resolve 2018-06-19 Catia present ion d 4 09:00:00 [place] 17:00: 00 Activity self-care Activity Resolve 2018-06-09 Catia deficit d 4 09:05:00 [place] 17:00: 00 Medication oral med Meds Resolve 2018-06-05 Catia assistance d 4- 17:00:00 [place] required 17:00: 00 Medication injectable Meds Unknown Catia med 06-05 [place] assistance 17:00: required 00 Medication potential Meds Resolve 2018-06-05 Catia clinically d 06-05 17:00:00 [place] significant 17:00: medication 00 issue Nutrition knowledge/s Nutrition Resolve 2018-06-06 Catia kill d 06-06 12:00:00 [place] deficit: pt 12:00: 00 Nutrition knowledge/s Nutrition Resolve 2018-06-10 Vonnie kill d 06-08 09:00:00 [place] deficit: pt 10:35: [id number] 00 24 Hr Diet nutrition NT: 24Hr Unknown Silvana intake Diet 06-08 [place] deficit 10:40: [id number] 00 24 Hr Diet knowledge/s NT: 24Hr Resolve 2018-06-08 Silvana kill Diet d 06-08 10:40:00 [place] deficit - 10:40: [id number] pt 00 Respiratory lung sounds Respirator Resolve 2018-06-10 Vonnie deficit y d 06-09 09:00:00 [place] 09:05: [id number] 00 Musculoskel requires Musculoske Resolve 2018-06-10 Vonnie etal human letal d 06-09 09:00:00 [place] assist to 09:05: [id number] leave home 00 Cardio edema Cardiovasc Resolve 2018-06-12 Catia wilhelm d 06-10 10:20:00 [place] 09:00: 00 Cardio knowledge/s Cardiovasc Resolve 2018-06-17 Catia fletcher ular d 06-10 09:00:00 [place] deficit: pt 09:00: 00 Cardio pacemaker/I Cardiovasc Resolve 2018-06-12 Catia CINTRON ular d 06-10 10:20:00 [place] 09:00: 00 Medication oral med Meds Resolve 2018-06-12 Catia assistance d 06-10 10:20:00 [place] required 09:00: 00 Nutrition knowledge/s Nutrition Resolve 2018-06-12 Roslyn kill d 06-11 10:20:00 [place] deficit: cg 10:00: [id number] 00 Nutrition changing Nutrition Resolve 2018-06-26 Catia weight/appe d 06-12 08:30:00 [place] tite 10:20: 00 Nutrition knowledge/s Nutrition Resolve 2018-06-12 Catia kill d 06-12 10:20:00 [place] deficit: pt 10:20: 00 Cardio edema Cardiovasc Resolve 2018-06-17 Vonnierea wilhelm d 06-15 09:00:00 [place] 09:15: [id number] 00 Cardio pacemaker/I Cardiovasc Resolve 2018-06-17 Vonnierea CINTRON ular d 06-15 09:00:00 [place] 09:15: [id number] 00 Respiratory dyspnea Respirator Resolve 2018-06-17 Vonnie present y d 06-15 09:00:00 [place] 09:15: [id number] 00 Respiratory oxygen Respirator Resolve 2018-06-19 Vonnie treatments y d 06-15 09:00:00 [place] in home 09:15: [id number] 00 Respiratory lung sounds Respirator Resolve 2018-06-17 Vonnie deficit y d 06-15 09:00:00 [place] 09:15: [id number] 00 Nutrition knowledge/s Nutrition Resolve 2018-06-17 Vonnie kill d 06-15 09:00:00 [place] deficit: pt 09:15: [id number] 00 Sensory impaired Sensory Resolve 2018-06-22 Catia verbal d 06-17 09:15:00 [place] communicati 09:00: on 00 Nutrition knowledge/s Nutrition Resolve 2018-06-17 Catia kill d 06-17 09:00:00 [place] deficit: cg 09:00: 00 Safety structural Safety Resolve 2018-06-26 Catia barriers d 06-17 08:30:00 [place] present 09:00: 00 Safety sanitation Safety Resolve 2018-06-26 Catia hazards d 06-17 08:30:00 [place] present 09:00: 00 24 Hr Diet nutrition NT: 24Hr Unknown Silvana intake Diet - [place] deficit 15:30: [id number] 00 24 Hr Diet knowledge/s NT: 24Hr Resolve 2018-06-18 Silvana kill Diet d 5 15:30:00 [place] deficit - 15:30: [id number] pt 00 Nutrition knowledge/s Nutrition Resolve 2018-06-19 Catia kill d 06-19 09:00:00 [place] deficit: pt 09:00: 00 Safety can be left Safety Resolve 2018-06-26 Catia alone for d 06-19 08:30:00 [place] only short 09:00: periods 00 Medication oral med Meds Resolve 2018-06-19 Catia assistance d 06-19 09:00:00 [place] required 09:00: 00 Cardio edema Cardiovasc Resolve 2018-06-26 Vonnie wilhelm d 06-22 08:30:00 [place] 09:15: [id number] 00 Cardio knowledge/s Cardiovasc Resolve 2018-07-24 Vonnieajith wilhelm d 06-22 09:00:00 [place] deficit: pt 09:15: [id number] 00 Cardio pacemaker/I Cardiovasc Resolve 2018-06-26 Vonnierea CINTRON ular d 06-22 08:30:00 [place] 09:15: [id number] 00 Nutrition knowledge/s Nutrition Resolve 2018-06-24 Vonnie kill d 06-22 11:00:00 [place] deficit: pt 09:15: [id number] 00 Nutrition knowledge/s Nutrition Resolve 2018-06-24 Vonnie kill d 06-22 11:00:00 [place] deficit: cg 09:15: [id number] 00 Neuro impaired Neuro/Emot Resolve 2018-06-26 Vonnie decision-ma ion d 06-22 08:30:00 [place] addison 09:15: [id number] 00 Neuro knowledge/s Neuro/Emot Resolve 2018-06-22 Vonnie kill ion d 06-22 09:15:00 [place] deficit: pt 09:15: [id number] 00 Neuro knowledge/s Neuro/Emot Resolve 2018-06-24 Vonnie kill ion d 06-23 11:00:00 [place] deficit: pt 09:30: [id number] 00 Social financial FEDE: Active [place]lyn Services resource Social 06-23 [place] deficit Services 09:45: [id number] 00 Social knowledge/s FEDE: Resolve 2018-06-23 [place] Services kill Social d 06-23 09:45:00 [place] deficit - Services 09:45: [id number] pt 00 Respiratory oxygen Respirator Resolve 2018-06-26 Catia treatments y d 06-24 08:30:00 [place] in home 11:00: 00 Medication oral med Meds Resolve 2018-06-24 Catia assistance d 06-24 11:00:00 [place] required 11:00: 00 Nutrition knowledge/s Nutrition Resolve 2018-06-26 Catia kill d 06-26 08:30:00 [place] deficit: pt 08:30: 00 Neuro knowledge/s Neuro/Emot Resolve 2018-06-26 Catia kill ion d 06-26 08:30:00 [place] deficit: pt 08:30: 00 Medication oral med Meds Resolve 2018-2018-07-01 Catia assistance d 5-10 10:00:00 [place] required 08:30: 00 Medication injectable Meds Unknown Catia med 5-10 [place] assistance 08:30: required 00 Cardio edema Cardiovasc Resolve 2018-07-08 Vonnie blackar d 5-13 16:00:00 [place] 09:30: [id number] 00 Respiratory oxygen Respirator Resolve 2018-07-08 Vonnie sánchez y d 5-13 16:00:00 [place] in home 09:30: [id number] 00 Nutrition knowledge/s Nutrition Resolve 2018-07-01 Vonnie fletcher d 5-13 10:00:00 [place] deficit: pt 09:30: [id number] 00 Cardio chest pain Cardiovasc Resolve 2018-07-08 Catia wilhelm d 5-15 16:00:00 [place] 10:00: 00 Cardio pacemaker/I Cardiovasc Resolve 2018-07-08 Catia wilhelm d -15 16:00:00 [place] 10:00: 00 Social knowledge/s FEDE: Resolve 2018-07-08 Catia Joy kill Social d 5-15 11:00:00 [place] deficit - Services 10:00: pt 00 Nutrition knowledge/s Nutrition Resolve 2018-07-08 Vonnie fletcher d -20 16:00:00 [place] deficit: pt 09:15: [id number] 00 Safety structural Safety Resolve 2018-07-23 Roslyn barriers d - 11:15:00 [place] present 11:00: [id number] 00 Safety sanitation Safety Resolve 2018-07-23 Roslyn hazards d 07-08 11:15:00 [place] present 11:00: [id number] 00 Safety can be left Safety Resolve 2018-07-23 Roslyn alone for d 07-08 11:15:00 [place] only short 11:00: [id number] periods 00 Neuro impaired Neuro/Emot Active Catia antunez 07-08 [place] jaime 16:00: 00 Medication oral med Meds Resolve 24 Catia assistance d 07-08 09:08:00 [place] required 16:00: 00 Medication injectable Meds Unknown Catia med 07-08 [place] assistance 16:00: required 00 Cardio edema Cardiovasc Resolve 2018-07-23 Vonnie ular d 07-10 11:15:00 [place] 09:08: [id number] 00 Cardio pacemaker/I Cardiovasc Resolve 2018-07-23 Vonnie CD ular d 07-10 11:15:00 [place] 09:08: [id number] 00 Respiratory oxygen Respirator Resolve 2018-08-14 Vonnie treatments y d 07-10 09:00:00 [place] in home 09:08: [id number] 00 Respiratory lung sounds Respirator Resolve 2018-07-24 Vonnie deficit y d 07-10 09:00:00 [place] 09:08: [id number] 00 Nutrition knowledge/s Nutrition Resolve 2018-07-23 Vonnie kill d 07-10 11:15:00 [place] deficit: pt 09:08: [id number] 00 Neuro knowledge/s Neuro/Emot Resolve 2018-07-23 Vonnie kill ion d 07-10 11:15:00 [place] deficit: pt 09:08: [id number] 00 Social knowledge/s FEDE: Resolve 2018-09-29 Vonnie Services kill Social d 07-10 10:00:00 [place] deficit - Services 09:08: [id number] pt 00 Neuro memory Neuro/Emot Resolve 2018-07-23 Vonnie deficit ion d 07-14 11:15:00 [place] needing 09:18: [id number] supervision 00 Pain frequent Pain Mgmt Active Vonnie pain 07-17 [place] 09:40: [id number] 00 Nutrition knowledge/s Nutrition Resolve 2018-07-23 Vonnie kill d 07-17 11:15:00 [place] deficit: cg 09:40: [id number] 00 Medication injectable Meds Unknown Vonnie med 07-17 [place] assistance 09:40: [id number] required 00 Respiratory bloody Respirator Resolve 2018-07-27 Vonnie sputum y d 6 09:00:00 [place] 09:07: [id number] 00 Respiratory dyspnea Respirator Resolve 2018-07-27 Catia bradford y d 07-23 09:00:00 [place] 11:15: 00 Elimination bowel Eliminatio Resolve 2018-07-24 Catia vidales n d 07-23 09:00:00 [place] e 11:15: 00 Elimination diarrhea Eliminatio Resolve 2018-07-24 Catia n d 07-23 09:00:00 [place] 11:15: 00 Elimination nausea/vomi Eliminatio Resolve 2018-07-24 Catia bass n d 07-23 09:00:00 [place] 11:15: 00 Medication oral med Meds Resolve 2018-2018-07-23 Catia assistance d 07-23 11:15:00 [place] required 11:15: 00 Medication injectable Meds Resolve 2018-09-11 Catia med d 07-23 09:00:00 [place] assistance 11:15: required 00 Cardio pacemaker/I Cardiovasc Resolve 2018-07-24 Catia CINTRON ular d 07-24 09:00:00 [place] 09:00: 00 Respiratory CPAP Respirator Resolve 2018-07-27 Catia sánchez y d 07-24 09:00:00 [place] in home 09:00: 00 Nutrition knowledge/s Nutrition Resolve 2018-07-24 Catia kill d 07-24 09:00:00 [place] deficit: pt 09:00: 00 Nutrition nutritional Nutrition Resolve 2018-07-24 Catia restriction d 07-24 09:00:00 [place] s 09:00: 00 Neuro knowledge/s Neuro/Emot Resolve 2018-07-24 Catia kill ion d 07-24 09:00:00 [place] deficit: pt 09:00: 00 Medication oral med Meds Resolve 2018-07-27 Catia assistance d 07-24 09:00:00 [place] required 09:00: 00 Medication injectable Meds Unknown 2018- Catia med 07-24 [place] assistance 09:00: required 00 Nutrition knowledge/s Nutrition Resolve 2018-0 2018-07-31 Vonnie kill d 6-10 09:00:00 [place] deficit: pt 09:00: [id number] 00 Nutrition nutritional Nutrition Resolve 2018-2018-07-31 Vonnie restriction d 6-10 09:00:00 [place] s 09:00: [id number] 00 Cardio pacemaker/I Cardiovasc Resolve 2018-07-31 Catia CINTRON ular d 6-14 09:00:00 [place] 09:00: 00 Respiratory CPAP Respirator Resolve 2018-07-31 Catia treatments y d 6-14 09:00:00 [place] in home 09:00: 00 Medication oral med Meds Resolve 2018-08-03 Catia assistance d 6-14 09:00:00 [place] required 09:00: 00 Nutrition knowledge/s Nutrition Unknown Roslyn kill 6-14 [place] deficit: pt 10:00: [id number] 00 Nutrition knowledge/s Nutrition Resolve 2018-08-07 Roslyn kill d 6-14 10:00:00 [place] deficit: cg 10:00: [id number] 00 Nutrition nutritional Nutrition Unknown Roslyn restriction 6-14 [place] s 10:00: [id number] 00 Safety can be left Safety Resolve 2018-08-07 Roslyn alone for d 6-14 10:00:00 [place] only short 10:00: [id number] periods 00 Nutrition knowledge/s Nutrition Unknown Catia kill 6-14 [place] deficit: pt 10:30: 00 Nutrition nutritional Nutrition Unknown Ctaia restriction 6-14 [place] s 10:30: 00 Respiratory CPAP Respirator Resolve 2018-08-07 Vonnie treatments y d 6-17 10:00:00 [place] in home 09:00: [id number] 00 Nutrition knowledge/s Nutrition Resolve 2018-08-07 Vonnie kill d 6-17 10:00:00 [place] deficit: pt 09:00: [id number] 00 Nutrition nutritional Nutrition Resolve 2018-08-07 Vonnie restriction d 6-17 10:00:00 [place] s 09:00: [id number] 00 Cardio pacemaker/I Cardiovasc Resolve 2018-08-10 Catia CD ular d 6-21 09:00:00 [place] 10:00: 00 Medication oral med Meds Resolve 2018-08-07 Catia assistance d 08-07 10:00:00 [place] required 10:00: 00 Respiratory dyspnea Respirator Resolve 2018-08-10 Catia present y d 08-10 09:00:00 [place] 09:00: 00 Respiratory CPAP Respirator Resolve 2018-08-10 Catia treatments y d 08-10 09:00:00 [place] in home 09:00: 00 Nutrition knowledge/s Nutrition Resolve 2018-08-14 Catia kill d 08-10 09:00:00 [place] deficit: pt 09:00: 00 Nutrition nutritional Nutrition Resolve 2018-08-10 Catia restriction d 08-10 09:00:00 Vallely s 09:00: 00 Medication oral med Meds Resolve 2018-08-10 Catia assistance d 08-10 09:00:00 Vallely required 09:00: 00 Respiratory CPAP Respirator Resolve 2018-08-14 Catia treatments y d 08-14 09:00:00 Vallely in home 09:00: 00 Nutrition nutritional Nutrition Resolve 2018-08-14 Catia restriction d 08-14 09:00:00 Vallely s 09:00: 00 Safety fall risk Safety Resolve 2018-08-28 Jennifer Baum factor d 08-14 09:00:00 Thomas present 09:00: [id number] 00 Safety fire risk Safety Resolve 2018-08-28 Jennifer Baum present d 08-14 09:00:00 Thomas 09:00: [id number] 00 Safety risk for Safety Resolve 2018-08-28 Jennifer Baum hospitaliza d 08-14 09:00:00 Thomas tion 09:00: [id number] 00 Medication oral med Meds Resolve 2018-08-14 Catia assistance d 08-14 09:00:00 Vallely required 09:00: 00 Cardio pacemaker/I Cardiovasc Resolve 2018-2018-08-28 Catia blackar d 08-21 09:00:00 Vallely 09:00: 00 Medication oral med Meds Resolve 2018-08-28 Catia assistance d 7 09:00:00 Vallely required 09:00: 00 Elimination nausea/vomi Eliminatio Resolve 2018-09-04 Catia bass n d 08-28 09:45:00 Vallely 09:00: 00 [facility] tion 09:45: [id number] 00 Cardio pacemaker/I Cardiovasc Resolve 2018-09-11 Catia CINTRON ular d 09-04 09:00:00 Vallely 09:45: 00 Medication oral med Meds Resolve 2018-09-11 Catia assistance d 09-04 09:00:00 Vallely required 09:45: 00 Medication injectable Meds Unknown Catia mounika 09-04 Vallely assistance 09:45: required 00 Respiratory dyspnea Respirator Resolve 2018 Catia present y d 09-11 09:00:00 Vallely 09:00: 00 Respiratory oxygen Respirator Resolve 2018-10-23 Catia treatments y d 09-11 09:00:00 Vallely in home 09:00: 00 Respiratory CPAP Respirator Resolve 2018-10-23 Catia treatments y d 09-11 09:00:00 Vallely in home 09:00: 00 Nutrition nutritional Nutrition Resolve 2018-09-18 Catia restriction d 09-11 10:00:00 Vallely s 09:00: 00 Cardio pacemaker/I Cardiovasc Resolve 2018-10-09 Vonnie wilhelm d 09-18 10:20:00 [place] 10:00: [id number] 00 Safety risk for Safety Resolve 2018-09-18 Vonnie hospitaliztomasz d 09-18 10:00:00 [place] tion 10:00: [id number] 00 Cardio chest pain Cardiovasc Resolve 2018-09-25 Vonnie wilhelm d 09-25 10:10:00 [place] 10:10: [id number] 00 Cardio knowledge/s Cardiovasc Resolve 2018-09-25 Vonnieajith wilhelm d 09-25 10:10:00 [place] deficit: cg 10:10: [id number] 00 Neuro memory Neuro/Emot Resolve 2018-10-23 Vonnie deficit ion d 09-25 09:00:00 Herberth needing 10:10: [id number] supervision 00 Safety risk for Safety Resolve 2018-09-25 Vonnie hospitaliza d 09-25 10:10:00 [place] tion 10:10: [id number] 00 Neuro depressive Neuro/Emot Resolve 2018-10-23 Catia feelings ion d 10-02 09:00:00 Vallely present 09:00: 00 Safety risk for Safety Resolve 2018 Catia hospitaliza d 10-02 09:00:00 Vallely tion 09:00: 00 Safety risk for Safety Resolve 2018-10-09 Vonnie hospitaliza d 10-06 10:20:00 [place] tion 11:40: [id number] 00 Elimination nausea/vomi Eliminatio Resolve 2018-10-16 Catia longo d 10-09 09:00:00 Vallely 10:20: 00 Cardio pacemaker/I Cardiovasc Resolve 2018-10-23 Catia wilhelm d 10-16 09:00:00 Vallely 09:00: 00 Safety fall risk Safety Resolve 2018-10-16 Catia martin d 10-16 09:00:00 Vallely present 09:00: 00 Safety risk for Safety Resolve 2018-10-16 Catia fraseriztomasz d 10-16 09:00:00 Vallely tion 09:00: 00 Musculoskel transfer Musculoske Resolve 2018-10-23 Catia bearl assistance letal d 10-16 09:00:00 Vallely required 09:00: 00 Safety risk for Safety Resolve 2018-10-23 Catia hospitaliza d 10-23 09:00:00 Vallely tion 09:00: 00 Social knowledge/s FEDE: Active [facility] Services kill Social 10-28 [facility] deficit - Services 16:15: [id number] pt 00 Cardio pacemaker/I Cardiovasc Resolve 2018-10-30 Catia mendiola 10-30 09:00:00 Vallely 09:00: 00 Respiratory oxygen Respirator Resolve 2018-10-30 Catia treatments y d 10-30 09:00:00 Vallely in home 09:00: 00 Respiratory CPAP Respirator Resolve 2018-10-30 Catia treatments y d 10-30 09:00:00 Vallely in home 09:00: 00 Nutrition nutritional Nutrition Resolve 2018-10-30 Catia restriction d 10-30 09:00:00 Vallely s 09:00: 00 Safety risk for Safety Resolve 2018-10-30 Catia hospitaliza d 10-30 09:00:00 Vallely tion 09:00: 00 Musculoskel knowledge/s Musculoske Resolve 2018-10-30 Catia etal kill letal d 10-30 09:00:00 Vallely deficit: cg 09:00: 00 Infection s/s of Infection Resolve 2018-11-27 Catia infection d 11-05 09:00:00 Vallely 09:00: 00 Cardio pacemaker/I Cardiovasc Resolve 2018-12-16 Catia CD ular d 11-05 15:00:00 Vallely 09:00: 00 Respiratory oxygen Respirator Resolve 2018-11-05 Catia treatments y d 11-05 09:00:00 Vallely in home 09:00: 00 Respiratory CPAP Respirator Resolve 2018-11-05 Catia treatments y d 11-05 09:00:00 Vallely in home 09:00: 00 Nutrition nutritional Nutrition Resolve 2018-11-20 Catia restriction d 11-05 09:00:00 Vallely s 09:00: 00 Safety risk for Safety Resolve 2018-11-05 Catia hospitaliza d 11-05 09:00:00 Vallely tion 09:00: 00 Medication oral med Meds Resolve 2018-11-05 Catia assistance d 11-05 09:00:00 Vallely required 09:00: 00 Medication potential Meds Resolve 2018-11-05 Catia clinically d 11-05 09:00:00 Vallely significant 09:00: medication 00 issue Respiratory oxygen Respirator Resolve 2018-11-13 Catia treatments y d 11-13 09:00:00 Vallely in home 09:00: 00 Respiratory CPAP Respirator Resolve 2018-11-13 Catia treatments y d 11-13 09:00:00 Vallely in home 09:00: 00 Integument skin Integument Resolve 2018-11-20 Catia integrity d 11-13 09:00:00 Vallely risk 09:00: 00 Nutrition nutritional Nutrition Unknown Catia restriction 11-13 Vallely s 09:00: 00 Elimination recurring Eliminatio Resolve 2018-11-27 Catia UTI n d 11-13 09:00:00 Vallely 09:00: 00 Safety risk for Safety Resolve 2018-11-13 Catia hospitaliza d 11-13 09:00:00 Vallely tion 09:00: 00 Medication oral med Meds Resolve 2018-11-20 Catia assistance d 11-13 09:00:00 Vallely required 09:00: 00 Respiratory oxygen Respirator Resolve 2018-11-20 Catia treatments y d 11-14 09:00:00 Vallely in home 13:00: 00 Respiratory CPAP Respirator Resolve 2018-022018-11-20 Catia treatments y d 0-04 09:00:00 Vallely in home 09:00: 00 Elimination recurring Eliminatio Unknown 2018-02 Catia UTI n 0-04 Vallely 09:00: 00 Safety risk for Safety Resolve 2018-022018-11-20 Catia hospitaliza d 0-04 09:00:00 Vallely tion 09:00: 00 Respiratory oxygen Respirator Resolve 2018-022018-11-27 Catia treatments y d 0-11 09:00:00 Vallely in home 09:00: 00 Respiratory CPAP Respirator Resolve 2018-022018-11-27 Catia treatments y d 0-11 09:00:00 Vallely in home 09:00: 00 Integument skin Integument Resolve 2018-022018-12-04 Catia integrity d 0-11 09:00:00 Vallely risk 09:00: 00 Safety risk for Safety Resolve 2018-022018-11-27 Catia hospitaliza d 0-11 09:00:00 Vallely tion 09:00: 00 Respiratory oxygen Respirator Resolve 2018-022018-12-04 Catia treatments y d 0-18 09:00:00 Vallely in home 09:00: 00 Respiratory CPAP Respirator Resolve 2018-022018-12-04 Catia treatments y d 0-18 09:00:00 Vallely in home 09:00: 00 Safety risk for Safety Resolve 2018-022018-12-04 Catia hospitaliza d 0-18 09:00:00 Vallely tion 09:00: 00 Respiratory oxygen Respirator Resolve 2018-022018-12-11 Catia treatments y d 0-25 08:15:00 Vallely in home 08:15: 00 Respiratory CPAP Respirator Resolve 2018-022018-12-11 Catia treatments y d 0-25 08:15:00 Vallely in home 08:15: 00 Safety risk for Safety Resolve 2018-022018-12-11 Catia hospitaliza d 0-25 08:15:00 Vallely tion 08:15: 00 Safety fall risk Safety Resolve 2018-022018-12-11 Catia factor d 0-25 08:15:00 Vallely present 08:15: 00 Musculoskel transfer Musculoske Resolve 2018-022019-01-07 Catia etal assistance letal d 0-25 09:00:00 Vallely required 08:15: 00 Respiratory oxygen Respirator Resolve 2018-022018-12-16 Catia treatments y d 0-30 15:00:00 Vallely in home 15:00: 00 Respiratory CPAP Respirator Resolve 2018-022018-12-18 Catia treatments y d 0-30 11:00:00 Vallely in home 15:00: 00 Integument surgical Integument Resolve 2018-022018-12-30 Catia wound d 0-30 10:00:00 Vallely present 15:00: 00 Integument skin Integument Resolve 2018-022018-12-30 Catia integrity d 0-30 10:00:00 Vallely risk 15:00: 00 Activity ADL Activity Resolve 2018-022018-12-30 Catia assistance d 0-30 10:00:00 Vallely required 15:00: 00 Activity self-care Activity Resolve 2018-022018-12-24 Catia deficit d 0-30 09:00:00 Vallely 15:00: 00 Musculoskel requires Musculoske Resolve 2018-022019-01-07 Catia etal human letal d 0-30 09:00:00 Vallely assist to 15:00: leave home 00 Cardio pacemaker/I Cardiovasc Resolve 2018-022019-01-07 Catia CINTRON ular d 1 09:00:00 Vallely 11:00: 00 Safety risk for Safety Resolve 2018-022019-04-29 Roslyn hospitaliza d 1- 09:00:00 Traunstein tion 10:15: [id number] 00 Safety sanitation Safety Resolve 2018-022018-12-30 Janet hazards d 1-05 10:00:00 Chaudhari present 15:10: [id number] 00 Safety fall risk Safety Resolve 2018-022018-12-24 Janet factor d 1-05 09:00:00 Chaudhari present 15:10: [id number] 00 Respiratory oxygen Respirator Resolve 2018-022018-12-30 Catia treatments y d 1-07 10:00:00 Vallely in home 09:00: 00 Medication oral med Meds Resolve 2018-022018-12-30 Catia assistance d 1-07 10:00:00 Vallely required 09:00: 00 Medication potential Meds Resolve 2018-022018-12-30 Catia clinically d 1-07 10:00:00 Vallely significant 09:00: medication 00 issue Respiratory CPAP Respirator Resolve 2018-022018-12-30 Catia treatments y d 1-13 10:00:00 Vallely in home 10:00: 00 Respiratory oxygen Respirator Resolve 2018-022019-01-07 Catia treatments y d 1- 09:00:00 Vallely in home 09:00: 00 Respiratory CPAP Respirator Resolve 2018-022019-01-07 Catia treatments y d 1-21 09:00:00 Vallely in home 09:00: 00 Integument skin Integument Resolve 2018-022019-01-15 Catia integrity d 1- 08:00:00 Vallely risk 09:00: 00 Nutrition nutritional Nutrition Resolve 2018-022019-01-07 Catia restriction d 03-09 09:00:00 Vallely s 09:00: 00 Nutrition nutritional Nutrition Resolve 2018-022019-01-22 Roslyn restriction d 03-13 08:00:00 Traunstein s 15:30: [id number] 00 Respiratory oxygen Respirator Resolve 2018-022019-01-15 Catia treatments y d - 08:00:00 Vallely in home 08:00: 00 Respiratory CPAP Respirator Resolve 2018-022019-01-15 Catia treatments y d 03-17 08:00:00 Vallely in home 08:00: 00 Musculoskel requires Musculoske Resolve 2018-022019-01-15 Catia etal human letal d 03-17 08:00:00 Vallely assist to 08:00: leave home 00 Respiratory oxygen Respirator Resolve 2018-022019-01-29 Catia treatments y d 2-06 09:00:00 Vallely in home 08:00: 00 Respiratory CPAP Respirator Resolve 2018-022019-01-29 Catia treatments y d 2-06 09:00:00 Vallely in home 08:00: 00 Musculoskel requires Musculoske Resolve 2018-022019-01-29 Catia etal human letal d 2-06 09:00:00 Vallely assist to 08:00: leave home 00 Respiratory dyspnea Respirator Resolve 2018-022019-01-29 Catia present y d 2-13 09:00:00 Vallely 09:00: 00 Integument skin Integument Resolve 2018-022019-02-03 Catia integrity d 2-13 11:55:00 Vallely risk 09:00: 00 Nutrition nutritional Nutrition Resolve 2018-022019-01-29 Catia restriction d 2-13 09:00:00 Vallely s 09:00: 00 Respiratory oxygen Respirator Resolve 2018-022019-02-03 Catia treatments y d 2-18 11:55:00 Vallely in home 11:55: 00 Respiratory CPAP Respirator Resolve 2018-022019-02-03 Catia treatments y d 2-18 11:55:00 Vallely in home 11:55: 00 Nutrition nutritional Nutrition Resolve 2018-022019-02-03 Catia restriction d 2-18 11:55:00 Vallely s 11:55: 00 Respiratory oxygen Respirator Resolve 2018-022019-02-05 Catia treatments y d 2-20 08:30:00 Vallely in home 08:30: 00 Respiratory CPAP Respirator Resolve 2018-022019-02-05 Catia treatments y d 2-20 08:30:00 Vallely in home 08:30: 00 Integument skin Integument Resolve 2018-022019-02-12 Catia integrity d 2-20 09:00:00 Vallely risk 08:30: 00 Nutrition nutritional Nutrition Resolve 2018-022019-02-05 Catia restriction d 2-20 08:30:00 Vallely s 08:30: 00 Nutrition nutritional Nutrition Unknown 2018-02 Roslyn restriction 2-20 Traunstein s 10:15: [id number] 00 Cardio pacemaker/I Cardiovasc Resolve 2018-022019-02-19 Catia CD ular d 2-27 09:00:00 Vallely 09:00: 00 Respiratory oxygen Respirator Resolve 2018-022019-02-12 Catia treatments y d 2-27 09:00:00 Vallely in home 09:00: 00 Respiratory CPAP Respirator Resolve 2018-022019-02-12 Catia treatments y d 2-27 09:00:00 Vallely in home 09:00: 00 Nutrition nutritional Nutrition Resolve 2018-022019-02-12 Catia restriction d 2-27 09:00:00 Vallely s 09:00: 00 Safety fall risk Safety Resolve 2018-022019-02-19 Catia factor d 2-27 09:00:00 Vallely present 09:00: 00 Musculoskel transfer Musculoske Resolve 2018-022019-02-12 Catia etal assistance letal d 2-27 09:00:00 Vallely required 09:00: 00 Musculoskel requires Musculoske Resolve 2018-022019-02-12 Catia etal human letal d 2-27 09:00:00 Vallely assist to 09:00: leave home 00 Cardio chest pain Cardiovasc Resolve 2019-04-08 Catia ular d 1-03 09:00:00 Vallely 09:00: 00 Cardio pacemaker/I Cardiovasc Resolve 2019-0 2019-02-26 Catia CINTRON ular d 1-10 08:30:00 Vallely 08:30: 00 Respiratory oxygen Respirator Resolve 2020-0 2019-03-05 Catia treatments y d 1-17 09:00:00 Vallely in home 09:00: 00 Respiratory CPAP Respirator Resolve 2019-0 2019-03-05 Catia treatments y d 1-17 09:00:00 Vallely in home 09:00: 00 Sensory impaired Sensory Resolve 2019-2019-03-12 Catia verbal d 1-17 09:00:00 Vallely communicati 09:00: on 00 Nutrition nutritional Nutrition Resolve 2019-0 2019-03-05 Catia restriction d 1-17 09:00:00 Vallely s 09:00: 00 Respiratory oxygen Respirator Resolve 2019-0 2019-03-12 Catia treatments y d 1-24 09:00:00 Vallely in home 09:00: 00 Respiratory CPAP Respirator Resolve 2019-0 2019-03-12 Catia treatments y d 1-24 09:00:00 Vallely in home 09:00: 00 Sensory impaired Sensory Active 2019- Catia verbal 1-31 Vallely communicati 09:00: on 00 Safety sanitation Safety Resolve 2019-0 2019-04-02 Catia hazards d 2-07 09:00:00 Vallely present 09:00: 00 Cardio pacemaker/I Cardiovasc Resolve 2019-0 2019-04-08 Catia CD ular d 2-14 09:00:00 Vallely 09:00: 00 Respiratory oxygen Respirator Resolve 2019-0 2019-04-14 Catia treatments y d 2-20 11:00:00 Vallely in home 09:00: 00 Respiratory lung sounds Respirator Resolve 2019-0 2019-04-08 Catia deficit y d 2-20 09:00:00 Vallely 09:00: 00 Respiratory CPAP Respirator Active 2019-0 Catia treatments y 2-20 Vallely in home 09:00: 00 Cardio pacemaker/I Cardiovasc Resolve 2019-0 2019-04-14 Catia CD ular d 2-26 11:00:00 Vallely 11:00: 00 Nutrition nutritional Nutrition Resolve 2019-04-14 Catia restriction d 04-14 11:00:00 Vallely s 11:00: 00 Safety fall risk Safety Resolve 2019-04-22 Catia factor d 04-14 09:00:00 Vallely present 11:00: 00 Musculoskel transfer Musculoske Active Catia etal assistance letal 04-14 Vallely required 11:00: 00 Cardio hypertensio Cardiovasc Resolve 2019-04-29 Catia wilhelm d 3- 09:00:00 Vallely 09:00: 00 Cardio pacemaker/I Cardiovasc Unknown 2019- Catia wilhelm 3- Vallely 09:00: 00 Respiratory oxygen Respirator Active 2019- Catia treatments y 3-05 Vallely in home 09:00: 00 Elimination nausea/vomi Eliminatio Resolve 2019-04-29 Catia longo d 3-05 09:00:00 Vallely 09:00: 00 Neuro depressive Neuro/Emot Active 2019- Catia feelings ion 3-05 Vallely present 09:00: 00 Cardio pacemaker/I Cardiovasc Resolve 2019-04-29 Catia wilhelm d 3-12 09:00:00 Vallely 09:00: 00 Respiratory dyspnea Respirator Active 2019- Catia present y 3-12 Vallely 09:00: 00 Respiratory oxygen Respirator Unknown 2019- Catia treatments y 3-12 Vallely in home 09:00: 00 Neuro memory Neuro/Emot Active 2019- Catia deficit ion 3-12 Vallely needing 09:00: supervision 00 Safety can be left Safety Active 2019- Catia alone for 3-12 Vallely only short 09:00: periods 00 Medication oral med Meds Active 2019- Catia assistance -12 Vallely required 09:00: 00 Medication potential Meds Active 2019- Catia clinically 3-12 Vallely significant 09:00: medication 00 issue Safety risk for Safety Active Sarah hospitaliza 3-19 Malnoske tion 13:00: RN 00 Allergies, Adverse Reactions, Alerts Allergy Allergy Status Severity Reaction(s) Onset Inactive Treating Comments Name Type Date Date Clinician shellfish Unknown Active Unknown Reaction 2017-05 Massiel Unknown -11 (Maria G) Shaun [id number] IVP DYE Unknown Active Unknown Reaction 2017-05 Massiel Unknown -11 (Maria G) Shaun [id number] Medications Ordered Filled Start Stop Current Ordering Indication Dosage Frequency Signature Comments Components Medication Medication Date Date Medication? Clinician (SIG) Name Name albuterol albuterol No Midura 1 puffs Unknown sulfate HFA sulfate HFA Erasmo ANDERSON 90 90 mcg/actuati mcg/actuati on aerosol on aerosol inhaler inhaler lisinopril lisinopril No Midura 2.5 mg Unknown 2.5 mg 2.5 mg Erasmo ANDERSON tablet tablet omeprazole omeprazole No Midura 20 mg Unknown 20 mg 20 mg Erasmo ANDERSON capsule,del capsule,del ayed ayed release release gabapentin gabapentin No Midura 300 mg Unknown 300 mg 300 mg Erasmo ANDERSON capsule capsule Symbicort Symbicort No Midura 2 puffs Unknown 160 mcg-4.5 160 mcg-4.5 Erasmo ANDERSON mcg/actuati mcg/actuati on HFA on HFA aerosol aerosol inhaler inhaler cetirizine cetirizine No Midura 10 mg Unknown 10 mg 10 mg Erasmo ANDERSON tablet tablet atorvastati atorvastati No Midura 80 mg Unknown n 80 mg n 80 mg Erasmo ANDERSON tablet tablet magnesium magnesium No Midura 400 mg Unknown oxide 400 oxide 400 Erasmo ANDERSON mg (241.3 mg (241.3 mg mg magnesium) magnesium) tablet tablet nitroglycer nitroglycer No Midura 1 Unknown in 0.4 mg in 0.4 mg Erasmo ANDERSON tablet sublingual sublingual tablet tablet dilTIAZem dilTIAZem No Midura 30 mg Unknown 30 mg 30 mg Erasmo ANDERSON tablet tablet glipiZIDE 5 glipiZIDE 5 No Midura Unknown Unknown mg tablet mg tablet Erasmo ANDERSON Janumet 50 Janumet 50 No Midura Unknown Unknown mg-1,000 mg mg-1,000 mg Erasmo ANDERSON tablet tablet Aspirin Low Aspirin Low No Midura Unknown Unknown Dose 81 mg Dose 81 mg Erasmo ANDERSON tablet tablet Xarelto 20 Xarelto 20 No Midura Unknown Unknown mg tablet mg tablet Erasmo ANDERSON acetaminoph acetaminoph No Midura Unknown Unknown en 500 mg en 500 mg Erasmo ANDERSON tablet tablet traMADol 50 traMADol 50 No Midura Unknown Unknown mg tablet mg tablet Erasmo ANDERSON hydroCHLORO hydroCHLORO No Midura Unknown Unknown thiazide 25 thiazide 25 Erasmo ANDERSON mg tablet mg tablet Colace 100 Colace 100 No Midura Unknown Unknown mg capsule mg capsule Erasmo ANDERSON Maalox Maalox No Midura Unknown Unknown Maximum Maximum Erasmo ANDERSON Strength Strength 400 mg-400 400 mg-400 mg-40 mg/5 mg-40 mg/5 mL oral mL oral suspension suspension aspirin 81 aspirin 81 No Midura Unknown Unknown mg chewable mg chewable 02-19 Erasmo ANDERSON tablet tablet furosemide furosemide 2018- No Midura Unknown Unknown 20 mg 20 mg 02-19 Erasmo ANDERSON tablet tablet atorvastati atorvastati No Midura Unknown Unknown n 80 mg n 80 mg 02-19 Erasmo ANDERSON tablet tablet metoprolol metoprolol No Midura Unknown Unknown succinate succinate 02-19 Erasmo ANDERSON ER 25 mg ER 25 mg tablet,exte tablet,exte nded nded release 24 release 24 hr hr lisinopril lisinopril 2018- No Midura Unknown Unknown 2.5 mg 2.5 mg 02-19 Erasmo ANDERSON tablet tablet dilTIAZem dilTIAZem No Midura Unknown Unknown 30 mg 30 mg 02-19 Erasmo ANDERSON tablet tablet Janumet 50 Janumet 50 No Midura Unknown Unknown mg-1,000 mg mg-1,000 mg 02-19 Erasmo ANDERSON tablet tablet Xarelto 20 Xarelto 20 2018- No Midura Unknown Unknown mg tablet mg tablet 02-19 Erasmo ANDERSON gabapentin gabapentin 2018- No Midura Unknown Unknown 300 mg 300 mg 02-19 ,Erasmo capsule capsule cetirizine cetirizine No Midura Unknown Unknown 10 mg 10 mg 02-19 ,Erasmo tablet tablet spironolact spironolact 2018- No Midura Unknown Unknown one 25 mg one 25 mg 02-19 ,Erasmo tablet tablet Symbicort Symbicort No Midura Unknown Unknown 80 mcg-4.5 80 mcg-4.5 02-19 Erasmo ANDERSON mcg/actuati mcg/actuati on HFA on HFA aerosol aerosol inhaler inhaler ferrous ferrous 2018- No Midura Unknown Unknown sulfate 325 sulfate 325 02-19 MD,Erasmo mg (65 mg mg (65 mg iron) iron) tablet,belkys tablet,belkys yed release yed release lactulose lactulose 2018- No Midura Unknown Unknown 20 gram/30 20 gram/30 02-19 ,Erasmo mL oral mL oral solution solution potassium potassium 2018- No Midura Unknown Unknown chloride ER chloride ER 02-19 MD,Erasmo 20 mEq 20 mEq tablet,exte tablet,exte nded nded release(par release(par t/cryst) t/cryst) thiamine thiamine No Midura Unknown Unknown HCl HCl 02-19 MD,Erasmo (vitamin (vitamin B1) 100 mg B1) 100 mg tablet tablet zinc zinc 2018- No Midura Unknown Unknown sulfate 220 sulfate 220 02-19 MD,Erasmo mg tablet mg tablet omeprazole omeprazole No Midura Unknown Unknown 20 mg 20 mg 02-19 MD,Erasmo capsule,del capsule,del ayed ayed release release ferrous ferrous 2018- No Midura Unknown Unknown sulfate 325 sulfate 325 02-19 MD,Erasmo mg (65 mg mg (65 mg iron) iron) tablet,belkys tablet,belkys yed release yed release magnesium magnesium 2018- No Midura Unknown Unknown oxide 400 oxide 400 02-19 ,Erasmo mg (241.3 mg (241.3 mg mg magnesium) magnesium) tablet tablet Maalox Maalox No Midura Unknown Unknown Maximum Maximum - ,Erasmo Strength Strength 400 mg-400 400 mg-400 mg-40 mg/5 mg-40 mg/5 mL oral mL oral suspension suspension Colace 100 Colace 100 2018- No Midura Unknown Unknown mg capsule mg capsule 02-19 MDErasmo albuterol albuterol 2018- No Midura Unknown Unknown sulfate HFA sulfate HFA 02-19 ,Erasmo 90 90 mcg/actuati mcg/actuati on aerosol on aerosol inhaler inhaler Nitrostat Nitrostat No Midura Unknown Unknown 0.4 mg 0.4 mg 1- ,Erasmo sublingual sublingual tablet tablet Tylenol Tylenol No Midura Unknown Unknown Extra Extra 1- ,Erasmo Strength Strength 500 mg 500 mg tablet tablet Colace 100 Colace 100 2018- No Midura Unknown Unknown mg capsule mg capsule 02-19- ,Erasmo albuterol albuterol No Midura Unknown Unknown sulfate HFA sulfate HFA 02-19 MD,Erasmo 90 90 mcg/actuati mcg/actuati on aerosol on aerosol inhaler inhaler ferrous ferrous 2018- No Midura Unknown Unknown sulfate 325 sulfate 325 02-27 MD,Erasmo mg (65 mg mg (65 mg iron) iron) tablet,belkys tablet,belkys yed release yed release magnesium magnesium No Midura Unknown Unknown oxide 400 oxide 400 03-18 MD,Erasmo mg (241.3 mg (241.3 mg mg magnesium) magnesium) tablet tablet lactulose lactulose No Midura Unknown Unknown 20 gram/30 20 gram/30 2-20 ,Erasmo mL oral mL oral solution solution furosemide furosemide No Bhargavi Unknown Unknown 20 mg 20 mg 04-24 CHERELLE Sheikh tablet tablet furosemide furosemide 2018- No Maghaydah Unknown Unknown 20 mg 20 mg 04-24- ,Qutaybe tablet tablet h torsemide torsemide 2018- No Maghaydah Unknown Unknown 20 mg 20 mg 04-29- ,Qutaybe tablet tablet h Lasix 20 mg Lasix 20 mg 2018- No Maghaydah Unknown Unknown tablet tablet 05-05 ,Qutaybe h cephALEXin cephALEXin 2018- No Midura Unknown Unknown 500 mg 500 mg 05-06 ,Erasmo capsule capsule triamcinolo triamcinolo 2018- No Midura Unknown Unknown ne ne 05-0618 ,Erasmo acetonide acetonide 0.1 % 0.1 % topical topical cream cream Lasix 20 mg Lasix 20 mg 2018- No Maghaydah Unknown Unknown tablet tablet 05-07 MD,Qutaybe h Lasix 20 mg Lasix 20 mg Maghaydah Unknown Unknown tablet tablet 05-07 MD,Qutaybe h furosemide furosemide 2018- No Maghaydah Unknown Unknown 20 mg 20 mg 05-09 MD,Qutaybe tablet tablet h Lasix 20 mg Lasix 20 mg Maghaydah Unknown Unknown tablet tablet 05-08 MD,Qutaybe h ferrous ferrous 2018- No Midura Unknown Unknown sulfate 325 sulfate 325 05-14 MD,Erasmo mg (65 mg mg (65 mg iron) iron) tablet,belkys tablet,belkys yed release yed release furosemide furosemide 2018- Cely Unknown Unknown 80 mg 80 mg 05-15 MD,Magdale tablet tablet na furosemide furosemide Midura Unknown Unknown 80 mg 80 mg 05-14 MD,Erasmo tablet tablet ferrous ferrous Midura Unknown Unknown sulfate 325 sulfate 325 05-14 MD,Erasmo mg (65 mg mg (65 mg iron) iron) tablet,belkys tablet,belkys yed release yed release Oxygen Oxygen Midura Unknown Unknown 05-15 MD,Erasmo zinc zinc Midura Unknown Unknown sulfate 220 sulfate 220 05-14 05 MD,Erasmo mg tablet mg tablet furosemide furosemide Maghaydah Unknown Unknown 40 mg 40 mg 05-14 MD,Qutaybe tablet tablet h Lasix 40 mg Lasix 40 mg No Maghaydah Unknown Unknown tablet tablet 05-27 MD,Qutaybe h bumetanide bumetanide 2018- Maghaydah Unknown Unknown 1 mg tablet 1 mg tablet 05-28 MD,Qutaybe h bumetanide bumetanide 2018- No Maghaydah Unknown Unknown 1 mg tablet 1 mg tablet 06-01 MD,Qutaybe h bumetanide bumetanide 2018- Maghaydah Unknown Unknown 1 mg tablet 1 mg tablet 05-29- ,Qutaybe h torsemide torsemide 2018- No Midura Unknown Unknown 20 mg 20 mg 06-05 ,Erasmo tablet tablet patiromer patiromer 2018- No Kardon Unknown Unknown calcium calcium 06-05 MD,Driss sorbitex sorbitex 8.4 gram 8.4 gram oral powder oral powder packet packet zinc oxide zinc oxide No Midura Unknown Unknown 16 % 16 % 06-07 ,Erasmo topical topical ointment ointment torsemide torsemide 2018- No Maghaydah Unknown Unknown 20 mg 20 mg 06-11 MD,Qutaybe tablet tablet h torsemide torsemide 2018- Maghaydah Unknown Unknown 20 mg 20 mg 06-13 MD,Qutaybe tablet tablet h torsemide torsemide 2018- Maghaydah Unknown Unknown 20 mg 20 mg 06-12 ,Qutaybe tablet tablet h torsemide torsemide 2018- Maghaydah Unknown Unknown 20 mg 20 mg 06-14- MD,Qutaybe tablet tablet h ferrous ferrous 2018- No Midura Unknown Unknown sulfate 325 sulfate 325 06-17 Erasmo ANDERSON mg (65 mg mg (65 mg iron) iron) tablet,belkys tablet,belkys yed release yed release Colace 100 Colace 100 2018- Midura Unknown Unknown mg capsule mg capsule 06-18- Erasmo ANDERSON Colace 100 Colace 100 No Midura Unknown Unknown mg capsule mg capsule 06-18 Erasmo ANDERSON torsemide torsemide 2018- No Maghaydah Unknown Unknown 20 mg 20 mg 06-23- MD,Qutaybe tablet tablet h torsemide torsemide 2018- No Maghaydah Unknown Unknown 20 mg 20 mg 06-26 MD,Qutaybe tablet tablet h torsemide torsemide 2018- Maghaydah Unknown Unknown 20 mg 20 mg 06-29 06- MD,Qutaybe tablet tablet h Nasonex 50 Nasonex 50 No Maghaydah Unknown Unknown mcg/actuati mcg/actuati 06-25 ,Qutaybe on Export on Export h Cipro 500 Cipro 500 2018- No Midura Unknown Unknown mg tablet mg tablet 07-03 ,Erasmo torsemide torsemide 2018- No Maghaydah Unknown Unknown 20 mg 20 mg 07-21 MD,Qutaybe tablet tablet h metOLazone metOLazone No Maghaydah Unknown Unknown 2.5 mg 2.5 mg 07-21- MD,Qutaybe tablet tablet h mometasone mometasone No Midura Unknown Unknown 0.1 % 0.1 % 08-04 ,Erasmo topical topical cream cream torsemide torsemide 2019- No Maghaydah Unknown Unknown 10 mg 10 mg 10-07 03- ,Qutaybe tablet tablet h clonazePAM clonazePAM 2018- Midura Unknown Unknown 0.5 mg 0.5 mg 10-27 Erasmo ANDERSON tablet tablet Oxygen Oxygen No Midura Unknown Unknown 10-30 Erasmo ANDERSON ferrous ferrous No Midura Unknown Unknown sulfate 325 sulfate 325 10-30 ,Erasmo mg (65 mg mg (65 mg iron) iron) tablet,belkys tablet,belkys yed release yed release Xarelto 20 Xarelto 20 No [place] Unknown Unknown mg tablet mg tablet 11-13 ,Kishor predniSONE predniSONE 2018- No Maghaydah Unknown Unknown 20 mg 20 mg 11-14 ,Qutaybe tablet tablet h Banophen 25 Banophen 25 2018- No Maghaydah Unknown Unknown mg capsule mg capsule 11-14 ,Qutaybe h Cipro 500 Cipro 500 2018- No Midura Unknown Unknown mg tablet mg tablet 11-13 10- Erasmo ANDERSON glimepiride glimepiride 2018-02- No Midura Unknown Unknown 2 mg tablet 2 mg tablet 02-12 Erasmo ANDERSON metOLazone metOLazone 2018-02- No Maghaydah Unknown Unknown 2.5 mg 2.5 mg 02-23 11- ,Qutaybe tablet tablet h metOLazone metOLazone 2018-02- No Maghaydah Unknown Unknown 2.5 mg 2.5 mg 03-01 MD,Qutaybe tablet tablet h azithromyci azithromyci 2018-02- No Midura Unknown Unknown n 250 mg n 250 mg 02-28 MD,Erasmo tablet tablet azithromyci azithromyci 2018-02- No Midura Unknown Unknown n 250 mg n 250 mg 02-23 MD,Erasmo tablet tablet metOLazone metOLazone 2018-02- No Maghaydah Unknown Unknown 2.5 mg 2.5 mg 03-08 MD,Qutaybe tablet tablet h metOLazone metOLazone 2018-02 No Maghaydah Unknown Unknown 2.5 mg 2.5 mg 04-04 MD,Qutaybe tablet tablet h traZODone traZODone 2018-02- No Midura Unknown Unknown 50 mg 50 mg 04-09 MD,Erasmo tablet tablet glimepiride glimepiride Yes Midura Unknown Unknown 2 mg tablet 2 mg tablet 03-31 MD,Erasmo ciprofloxac ciprofloxac 2019- Yes Midura Unknown Unknown in 500 mg in 500 mg 04-08 MD,Erasmo tablet tablet torsemide torsemide Yes Maghaydah Unknown Unknown 10 mg 10 mg - MD,Qutaybe tablet tablet h torsemide torsemide Yes Maghaydah Unknown Unknown 20 mg 20 mg 3-11 MD,Qutaybe tablet tablet h Vital Signs Vital Name Observation Time Observation Value Comments SYSTOLIC mm[Hg] 2019-05-06 18:10:57 122 mm[Hg] mm[Hg] Method: Sit SYSTOLIC mm[Hg] 2019-04-14 18:10:35 114 mm[Hg] mm[Hg] Method: Stand DIASTOLIC mm[Hg] 2019-05-06 18:10:57 82 mm[Hg] mm[Hg] Method: Sit DIASTOLIC mm[Hg] 2019-04-14 18:10:35 70 mm[Hg] mm[Hg] Method: Stand PULSE 2019-05-06 18:10:57 74 /min /min RESP RATE 2019-05-06 18:10:57 16 /min /min TEMP 2019-05-06 18:10:57 97.6 [degF] Procedures This patient has no known procedures. Results This patient has no known results.
--- OUTSIDE RECORDS SUMMARY | 2019-05-13 12:13 | XMS REPORT ---
:1960 Author Organization [facility] Care Team Providers Name Role Phone Unavailable Unavailable Unavailable Problems Condition Condition Condition Status Onset Resolution Last Treating Comments Name Details Category Date Date Treatment Clinician Date Chronic Chronic Diagnosis Active Catia diastolic diastolic 1- Vallebayron (congestive (congestive ) heart ) heart failure failure Chronic Chronic Diagnosis Active Catia kidney kidney 05-10 Vallebayron disease, disease, unspecified unspecified Type 2 Type 2 Diagnosis Active Catia diabetes diabetes 1- [place] mellitus mellitus without without complicatio complicatio ns ns 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 pectoris Unspecified Unspecified Diagnosis Active Catia atrial atrial 1- Gaviotalebayron fibrillatio fibrillatio n n Chronic Chronic Diagnosis Active Catia obstructive obstructive 1- Vallebayron pulmonary pulmonary disease, disease, unspecified unspecified Obstructive Obstructive Diagnosis Active Catia sleep apnea sleep apnea Val[place] (adult) (adult) (pediatric) (pediatric) Adult Adult Diagnosis Active Catia failure to failure to [place] 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 (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) (current) [place] use of use of anticoagula anticoagula nts nts 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 (current) (current) [place] use of use of aspirin aspirin Hyperlipide Hyperlipide Diagnosis Active tuan [place] unspecified unspecified Cardio edema Cardiovasc Resolve 2018-03-13 Catia mendiola 1- 10:00:00 [place] 11:00: 00 Cardio knowledge/s Cardiovasc Resolve 2018-03-13 Catia kill ular d 1-03 10:00:00 [place] deficit: pt 11:00: 00 Cardio knowledge/s Cardiovasc Resolve 2018-03-13 Catia fletcher ular d - 10:00:00 [place] deficit: cg 11:00: 00 Respiratory dyspnea Respirator Resolve 2018-03-13 Catia present y d - 10:00:00 [place] 11:00: 00 Endo/Viktor diabetic Endo/Viktor Resolve 2018-02-25 Catia foot care d - 11:25:00 [place] 11:00: 00 Endo/Viktor anti-coagul Endo/Viktor Resolve 2018-02-25 Catia ation d 02-19 11:25:00 [place] therapy 11:00: 00 Nutrition knowledge/s Nutrition Resolve 2018-02-25 Catia kill d 02-19 11:25:00 [place] deficit: pt 11:00: 00 Nutrition knowledge/s Nutrition Resolve 2018-02-25 Catia kill d - 11:25:00 [place] deficit: cg 11:00: 00 Nutrition nutritional Nutrition Resolve 2018-02-25 Catia restriction d - 11:25:00 [place] s 11:00: 00 Elimination bowel Eliminatio Resolve 2018-02-25 Catia incontinenc n d 03 11:25:00 [place] e 11:00: 00 Elimination knowledge/s Eliminatio Resolve 2018-02-25 Catia kill n d 02-19 11:25:00 [place] deficit: pt 11:00: 00 Neuro confusion Neuro/Emot Resolve 2018-03-27 Catia present ion d - 13:00:00 [place] 11:00: 00 Neuro impaired Neuro/Emot Resolve 2018-03-27 Catia decision-ma ion d - 13:00:00 [place] addison 11:00: 00 Neuro memory Neuro/Emot Resolve 2018-03-27 Catia deficit ion d - 13:00:00 [place] needing 11:00: supervision 00 Neuro knowledge/s Neuro/Emot Resolve 2018-02-25 Catia kill ion d 1-03 11:25:00 [place] deficit: pt [...] Safety can be left Safety Resolve 2018-03-13 Catia alone for d 1-03 10:00:00 [place] only short 11:00: periods 00 Medication oral med Meds Resolve 2018-02-25 Catia assistance d 1-03 11:25:00 [place] required 11:00: 00 Musculoskel knowledge/s Musculoske Resolve 2018-03-13 Catia etal kill letal d 1-03 10:00:00 [place] deficit: pt 11:00: 00 Musculoskel knowledge/s Musculoske Resolve 2018-03-13 Catia etal kill letal d 1-03 10:00:00 [place] deficit: cg 11:00: 00 Balance/End balance/cook fry PT/OT: Resolve 2018-12-29 Catia yousif rdination Balance/En d -03 17:15:00 [place] deficit durance 11:00: 00 Social support FEDE: Resolve 2018-05-08 Catia Services deficit Social d 1-03 10:00:00 [place] Services 11:00: 00 Gait/Locomo gait PT/OT: Resolve 2018-12-29 Catia ocampo deficit Gait/Locom d 02-19 17:15:00 [place] problems otion 11:00: 00 Cardio pacemaker/I Cardiovasc Resolve 2018-03-13 Catia CINTRON ular d 02-25 10:00:00 [place] 11:25: 00 Integument skin Integument Resolve 2018-03-13 Catia integrity d 02-25 10:00:00 [place] risk 11:25: 00 Bed mobility/tr PT/OT: Bed Resolve 2018-12-29 Deejay Mobility/Tr ansfer Mobility/T d 02-25 17:15:00 [place] sigala device ransfer 14:50: [id number] present 00 Bed transfer PT/OT: Bed Resolve 2018-12-29 Deejay Mobility/Tr deficit: Mobility/T d 02-25 17:15:00 [place] sigala toilet/comm ransfer 14:50: [id number] 00 Bed transfer PT/OT: Bed Resolve 2018-12-29 Deejay Mobility/Tr deficit: Mobility/T d 02-25 17:15:00 [place] sigala shower/tub ransfer 14:50: [id number] 00 Bed knowledge/s PT/OT: Bed Resolve 2018-12-29 Deejay Mobility/Tr kill Mobility/T d 02-25 17:15:00 [place] sigala deficit: pt ransfer 14:50: [id number] 00 Balance/End knowledge/s PT/OT: Resolve 2018-12-29 Deejay yousif kill Balance/En d 02-25 17:15:00 [place] deficit: pt durance 14:50: [id number] 00 Environment knowledge/s PT/OT: Resolve 2018-12-29 Deejay hennessy kill Environmen d 02-25 17:15:00 [place] deficit: pt t 14:50: [id number] 00 Environment environment PT/OT: Resolve 2018-12-29 Deejay hennessy al barriers Environmen d 02-25 17:15:00 [place] t 14:50: [id number] 00 Gait/Locomo gait PT/OT: Resolve 2018-12-29 Deejay ocampo assistive Gait/Locom d 02-25 17:15:00 Garibay problems device otion 14:50: [id number] present 00 Gait/Locomo knowledge/s PT/OT: Resolve 2018-12-29 Deejay ocampo kill Gait/Locom d 02-25 17:15:00 Garibay problems deficit: pt otion 14:50: [id number] 00 Cardio edema Cardiovasc Resolve 2018-05-27 Catia ular d 2 10:00:00 [place] 13:00: 00 Cardio pacemaker/I Cardiovasc [...] [place] 14:00: 00 Respiratory dyspnea Respirator Resolve 2018-2018-04-17 Catia present y d 2- 09:00:00 [place] 14:00: 00 Respiratory asthma Respirator Resolve 2018-2018-04-17 Catia y d 2 09:00:00 [place] 14:00: 00 Endo/Viktor anti-coagul Endo/Viktor Active 2018- Catia ation 2- [place] therapy 14:00: 00 Nutrition nutritional Nutrition Resolve 2018-04-09 Catia restriction d 2- 14:00:00 [place] s 14:00: 00 Neuro confusion Neuro/Emot Resolve 2018-04-17 Catia present ion d 2- 09:00:00 [place] 14:00: 00 Neuro knowledge/s Neuro/Emot Resolve 2018-04-24 Catia kill ion d 2- 10:00:00 [place] deficit: pt 14:00: 00 Neuro anxiety Neuro/Emot Resolve 2018-04-09 Catia present ion d 2- 14:00:00 [place] 14:00: 00 Cardio knowledge/s Cardiovasc Resolve 2018-2018-05-27 Vonnie kill ular d 2- 10:00:00 [place] deficit: pt 09:50: [id number] 00 Cardio knowledge/s Cardiovasc Resolve 2018-05-27 Vonnie kill ular d 2 10:00:00 [place] deficit: cg 09:50: [id number] 00 Respiratory lung sounds Respirator Resolve 2018-04-17 Vonnie deficit y d 2 09:00:00 [place] 09:50: [id number] 00 Medication oral med Meds Resolve 2018-04-24 Catia assistance d 3- 10:00:00 [place] required 09:00: 00 Medication injectable Meds Resolve 2018-04-24 Catia med d 3- 10:00:00 [place] assistance 09:00: required 00 Respiratory dyspnea Respirator Resolve 2018-05-08 Catia present y d 3 10:00:00 [place] 10:00: 00 Respiratory asthma Respirator Resolve 2018-04-27 Catia y d 3 09:00:00 [place] 10:00: 00 Nutrition nutritional Nutrition Resolve 2018-2018-04-27 Catia restriction d 3- 09:00:00 [place] s 09:00: 00 Nutrition nutritional Nutrition Resolve 2018-05-27 Catia restriction d 3- 10:00:00 [place] s 09:00: 00 Respiratory oxygen Respirator Resolve 2018-2018-05-27 Catia treatments y d 3- 10:00:00 [place] in home Respiratory knowledge/s Respirator Resolve 2018-2018-05-20 Catia kill y d 3- 11:00:00 [place] deficit: pt 10:00: 00 Respiratory dyspnea Respirator Resolve 2018-05-27 Catia present y d 3- 10:00:00 [place] 10:00: 00 Endo/Viktor diabetic Endo/Viktor Resolve 2018-2018-05-20 Catia foot care d 3 11:00:00 [place] 10:00: 00 Nutrition changing Nutrition Resolve 2018-2018-05-27 Catia weight/appe d 05-15 10:00:00 [place] tite 10:00: 00 Neuro confusion Neuro/Emot Resolve 2018-2018-06-19 Catia present ion d 3 09:00:00 [place] 10:00: 00 Neuro memory Neuro/Emot Resolve 2018-2018-06-19 Catia deficit ion d 05-15 09:00:00 [place] needing 10:00: supervision 00 Activity ADL Activity Resolve 2018-06-06 Catia assistance d 05-15 12:00:00 [place] required 10:00: 00 Musculoskel transfer Musculoske Resolve 2018-05-27 Catia etal assistance letal d 05-15 10:00:00 [place] required 10:00: 00 Social support FEDE: Active Catia Services deficit Social 05-15 [place] Services 10:00: 00 Neuro knowledge/s Neuro/Emot Resolve 2018-2018-06-19 Catia kill ion d 4 09:00:00 [place] deficit: pt 11:00: 00 Safety can be left Safety Resolve 2018-06-17 Catia alone for d 4- 09:00:00 [place] only short 11:00: periods 00 Respiratory knowledge/s Respirator Resolve 2018-2018-05-22 Roslyn kill y d 4-04 09:00:00 [place] deficit: pt 10:00: [id number] 00 Social knowledge/s FEDE: Resolve 2018-2018-05-21 [facility] Services kill Social d 4-04 10:00:00 [place] deficit - Services 10:00: [id number] pt 00 Social knowledge/s FEDE: Resolve 2018-2018-05-21 [facility] Services kill Social d 4-04 10:00:00 [place] deficit - Services 10:00: [id number] cg 00 24 Hr Diet nutrition NT: 24Hr Active 2018- Silvana intake Diet -05 [place] deficit 09:50: [id number] 00 24 Hr Diet knowledge/s NT: 24Hr Resolve 2018-05-22 Silvana kill Diet d 4- 09:50:00 [place] deficit - 09:50: [id number] pt 00 Nutritional food NT: Resolve 2018-05-22 Silvana Barrier storage/pre Barriers d 05 09:50:00 [place] p deficit 09:50: [id number] 00 Respiratory lung sounds Respirator Resolve 2018-05-27 Vonnie deficit y d 408 10:00:00 [place] 09:10: [id number] 00 Respiratory nebulizer Respirator Resolve 2018-05-27 Vonnie treatment y d 05-25 10:00:00 [place] in home 09:10: [id number] 00 Neuro impaired Neuro/Emot Resolve 2018-06-19 Catia toscano-ma ion d 4 09:00:00 Valelvira addison 10:00: 00 Test/Treatm tests Test/Injec Resolve 2018-06-09 Vonnie ent ordered t/Chele d 4 09:05:00 [place] [id number] Cardio knowledge/s Cardiovasc Resolve 2018-06-06 Catia fletcher ular d 412 12:00:00 [place] deficit: pt 09:00: 00 Cardio pacemaker/I Cardiovasc Resolve 2018-06-06 Catia CINTRON ular d 412 12:00:00 [place] 09:00: 00 Cardio edema Cardiovasc Resolve 2018-06-06 Catia wilhelm d 412 12:00:00 [place] 09:00: 00 Respiratory dyspnea Respirator Resolve 2018-05-29 Catia present y d 4-12 09:00:00 [place] 09:00: 00 Respiratory oxygen Respirator Resolve 2018-05-29 Catia treatments y d 4-12 09:00:00 [place] in home 09:00: 00 Nutrition nutritional Nutrition Resolve 2018-05-29 Catia restriction d 4-12 09:00:00 [place] s 09:00: 00 Respiratory dyspnea Respirator Resolve 2018-06-10 Vonnie present y d 415 09:00:00 [place] 09:00: [id number] 00 Respiratory oxygen Respirator Resolve 2018-06-10 Vonnie treatments y d 4-15 09:00:00 [place] in home 09:00: [id number] 00 Respiratory lung sounds Respirator Resolve 2018-06-06 Vonnie deficit y d 4-15 12:00:00 [place] 09:00: [id number] 00 Endo/Viktor diabetic Endo/Viktor Resolve 2018-06-06 Catia foot care d 4-19 12:00:00 [place] 17:00: 00 Nutrition nutritional Nutrition Resolve 2018-07-23 Catia restriction d 4-19 11:15:00 [place] s 17:00: 00 Nutrition changing Nutrition Resolve 2018-06-10 Catia weight/appe d 06-05 09:00:00 [place] tite 17:00: 00 Neuro anxiety Neuro/Emot Resolve 2018-06-19 Catia present ion d 419 09:00:00 [place] 17:00: 00 Activity self-care Activity Resolve 2018-06-09 Catia deficit d 4-19 09:05:00 [place] 17:00: 00 Medication oral med Meds Resolve 2018-06-05 Catia assistance d -19 17:00:00 [place] required 17:00: 00 Medication injectable Meds Unknown Catia med 06-05 [place] assistance 17:00: required 00 Medication potential Meds Resolve 2018-06-05 Catia clinically d - 17:00:00 [place] significant 17:00: medication 00 issue Nutrition knowledge/s Nutrition Resolve 2018-06-06 Catia kill d 4-20 12:00:00 [place] deficit: pt 12:00: 00 Nutrition knowledge/s Nutrition Resolve 2018-06-10 Vonnie kill d 4- 09:00:00 [place] deficit: pt 10:35: [id number] 00 24 Hr Diet nutrition NT: 24Hr Unknown Silvana intake Diet 06-08 [place] deficit 10:40: [id number] 00 24 Hr Diet knowledge/s NT: 24Hr Resolve 2018-06-08 Silvana kill Diet d 4-22 10:40:00 [place] deficit - 10:40: [id number] pt 00 Respiratory lung sounds Respirator Resolve 2018-06-10 Vonnie deficit y d 06-09 09:00:00 [place] 09:05: [id number] 00 Musculoskel requires Musculoske Resolve 2018-06-10 Vonnie etal human letal d 06-09 09:00:00 [place] assist to 09:05: [id number] leave home 00 Cardio edema Cardiovasc Resolve 2018-06-12 Catia wilhelm d 06-10 10:20:00 [place] 09:00: 00 Cardio knowledge/s Cardiovasc Resolve 2018-06-17 Catia wilhelm d 06-10 09:00:00 [place] deficit: pt 09:00: 00 Cardio pacemaker/I Cardiovasc Resolve 2018-06-12 Catia CINTRON ulefren d 06-10 10:20:00 [place] 09:00: 00 Medication oral med Meds Resolve 2018-06-12 Catia assistance d 06-10 10:20:00 [place] required 09:00: 00 Nutrition knowledge/s Nutrition Resolve 2018-06-12 Roslyn kill d 06-11 10:20:00 [place] deficit: cg 10:00: [id number] 00 Nutrition changing Nutrition Resolve 2018-06-26 Catia weight/appe d 06-12 08:30:00 [place] tite 10:20: 00 Nutrition knowledge/s Nutrition Resolve 2018-06-12 Catia kill d 06-12 10:20:00 [place] deficit: pt 10:20: 00 Cardio edema Cardiovasc Resolve 2018-06-17 Vonnierea wilhelm d 06-15 09:00:00 [place] 09:15: [id number] 00 Cardio pacemaker/I Cardiovasc Resolve 2018-06-17 Vonnierea CINTRON ular d 06-15 09:00:00 [place] 09:15: [id number] 00 Respiratory dyspnea Respirator Resolve 2018-06-17 Vonnie present y d 06-15 09:00:00 [place] 09:15: [id number] 00 Respiratory oxygen Respirator Resolve 2018-06-19 Vonnie treatments y d 06-15 09:00:00 [place] in home 09:15: [id number] 00 Respiratory lung sounds Respirator Resolve 2018-06-17 Vonnie deficit y d 06-15 09:00:00 [place] 09:15: [id number] 00 Nutrition knowledge/s Nutrition Resolve 2018-06-17 Vonnie kill d 06-15 09:00:00 [place] deficit: pt 09:15: [id number] 00 Sensory impaired Sensory Resolve 2018-06-22 Catia [...] nutrition NT: 24Hr Unknown Silvana intake Diet 06-18 [place] deficit 15:30: [id number] 00 24 Hr Diet knowledge/s NT: 24Hr Resolve 2018-06-18 Silvana kill Diet d 06-18 15:30:00 [place] deficit - 15:30: [id number] pt 00 Nutrition knowledge/s Nutrition Resolve 2018-06-19 Catia kill d 06-19 09:00:00 [place] deficit: pt 09:00: 00 Safety can be left Safety Resolve 2018-06-26 Catia alone for d 06-19 08:30:00 [place] only short 09:00: periods 00 Medication oral med Meds Resolve 2018-06-19 Catia assistance d 06-19 09:00:00 [place] required 09:00: 00 Cardio edema Cardiovasc Resolve 2018-06-26 Vonnie wilhelm d 06-22 08:30:00 [place] 09:15: [id number] 00 Cardio knowledge/s Cardiovasc Resolve 2018-07-24 Vonnieajith fletcher ular d 06-22 09:00:00 [place] deficit: pt 09:15: [id number] 00 Cardio pacemaker/I Cardiovasc Resolve 2018-06-26 Vonnierea CINTRON ular d 06-22 08:30:00 [place] 09:15: [id number] 00 Nutrition knowledge/s Nutrition Resolve 2018-06-24 Vonnie kill d 06-22 11:00:00 [place] deficit: pt 09:15: [id number] 00 Nutrition knowledge/s Nutrition Resolve 2018-06-24 Vonnie kill d 06-22 11:00:00 [place] deficit: cg 09:15: [id number] 00 Neuro impaired Neuro/Emot Resolve 2018-06-26 Vonnie decision-ma ion d 06-22 08:30:00 [place] addison 09:15: [id number] 00 Neuro knowledge/s Neuro/Emot Resolve 2018-06-22 Vonnie kill ion d 06-22 09:15:00 [place] deficit: pt 09:15: [id number] 00 Neuro knowledge/s Neuro/Emot Resolve 2018-06-24 Vonnie kill ion d 06-23 11:00:00 [place] deficit: pt 09:30: [id number] 00 Social financial FEDE: Active Roslyn Services resource Social 06-23 [place] deficit Services 09:45: [id number] 00 Social knowledge/s FEDE: Resolve 2018-06-23 [place] Services kill Social d 06-23 [facility]:45[facility] 09[facility] [id number] pt 00 Respiratory oxygen Respirator Resolve 2018-06-26 [...] 08:30: 00 Medication oral med Meds Resolve 2018-07-01 Catia assistance d 5-10 10:00:00 [place] required 08:30: 00 Medication injectable Meds Unknown Catia med - [place] assistance 08:30: required 00 Cardio edema Cardiovasc Resolve 2018-2018-07-08 Vonnierea wilhelm d 5-13 16:00:00 [place] 09:30: [id number] 00 Respiratory oxygen Respirator Resolve 2018-07-08 Vonnierea sánchez y d 5-13 16:00:00 [place] in home 09:30: [id number] 00 Nutrition knowledge/s Nutrition Resolve 2018-07-01 Vonnie kill d 5-13 10:00:00 [place] deficit: pt 09:30: [id number] 00 Cardio chest pain Cardiovasc Resolve 2018-07-08 Catia wilhelm d 515 16:00:00 [place] 10:00: 00 Cardio pacemaker/I Cardiovasc Resolve 2018-07-08 Catia wilhelm d 15 16:00:00 [place] 10:00: 00 Social knowledge/s FEDE: Resolve 2018-07-08 Catia Services kill Social d -15 11:00:00 [place] deficit - Services 10:00: pt 00 Nutrition knowledge/s Nutrition Resolve 2018-07-08 Vonnie fletcher d -20 16:00:00 [place] deficit: pt 09:15: [id number] 00 Safety structural Safety Resolve 2018-07-23 Roslyn barriers d 07-08 11:15:00 [place] present 11:00: [id number] 00 Safety sanitation Safety Resolve 2018-07-23 Roslyn hazards d 07-08 11:15:00 [place] present 11:00: [id number] 00 Safety can be left Safety Resolve 2018-07-23 Roslyn alone for d 07-08 11:15:00 [place] only short 11:00: [id number] periods 00 Neuro impaired Neuro/Emot Active Catia antunez 07-08 [place] addison 16:00: 00 Medication oral med Meds Resolve 2018-07-10 Catia garcia d 07-08 09:08:00 [place] required 16:00: 00 Medication injectable Meds Unknown Catia med 07-08 [place] assistance 16:00: required 00 Cardio edema Cardiovasc Resolve 2018-07-23 Vonnie ular d 07-10 11:15:00 [place] 09:08: [id number] 00 Cardio pacemaker/I Cardiovasc Resolve 2018-07-23 Vonnie CD ular d 07-10 11:15:00 [place] 09:08: [id number] 00 Respiratory oxygen Respirator Resolve 2018-08-14 Vonnie treatments y d 07-10 09:00:00 [place] in home 09:08: [id number] 00 Respiratory lung sounds Respirator Resolve 2018-07-24 Vonnie deficit y d 07-10 09:00:00 [place] 09:08: [id number] 00 Nutrition knowledge/s Nutrition Resolve 2018-07-23 Vonnie kill d 07-10 11:15:00 [place] deficit: pt 09:08: [id number] 00 Neuro knowledge/s Neuro/Emot Resolve 2018-07-23 Vonnie kill ion d 07-10 11:15:00 [place] deficit: pt 09:08: [id number] 00 Social knowledge/s FEDE: Resolve 2018-09-29 Vonnie Services kill Social d 07-10 10:00:00 [place] deficit - Services 09:08: [id number] pt 00 Neuro memory Neuro/Emot Resolve 2018-07-23 Vonnie deficit ion d 07-14 11:15:00 [place] needing 09:18: [id number] supervision 00 Pain frequent Pain Mgmt Active Vonnie pain 07-17 [place] 09:40: [id number] 00 Nutrition knowledge/s Nutrition Resolve 2018-07-23 Vonnie kill d 07-17 11:15:00 [place] deficit: cg 09:40: [id number] 00 Medication injectable Meds Unknown Vonnie med 07-17 [place] assistance 09:40: [id number] required 00 Respiratory bloody Respirator Resolve 2018-07-27 Vonnie sputum y d 07-21 09:00:00 [place] 09:07: [id number] 00 Respiratory dyspnea Respirator Resolve 2018-07-27 Catia present y d 07-23 09:00:00 [place] 11:15: 00 Elimination bowel Eliminatio Resolve 2018-07-24 Catia aryanenc n d 07-23 09:00:00 [place] e 11:15: 00 Elimination diarrhea Eliminatio Resolve 2018-07-24 Catia n d 07-23 09:00:00 [place] 11:15: 00 Elimination nausea/vomi Eliminatio Resolve 2018-07-24 Catia kali n d 07-23 09:00:00 [place] 11:15: 00 Medication oral med Meds Resolve 2018-07-23 Catia assistance d 07-23 11:15:00 [place] required [...] 09:00: required 00 Nutrition knowledge/s Nutrition Resolve 2018-2018-07-31 Vonnie kill d 07-27 09:00:00 [place] deficit: pt 09:00: [id number] 00 Nutrition nutritional Nutrition Resolve 2018-2018-07-31 Vonnie restriction d 6-10 09:00:00 [place] s 09:00: [id number] 00 Cardio pacemaker/I Cardiovasc Resolve 2018-2018-07-31 Catia CINTRON ular d 6-14 09:00:00 [place] 09:00: 00 Respiratory CPAP Respirator Resolve 2018-07-31 Catia treatments y d 6-14 09:00:00 [place] in home 09:00: 00 Medication oral med Meds Resolve 2018-08-03 Catia assistance d 6-14 09:00:00 [place] required 09:00: 00 Nutrition knowledge/s Nutrition Unknown Roslyn kill 6-14 [place] deficit: pt 10:00: [id number] 00 Nutrition knowledge/s Nutrition Resolve 2018-08-07 Roslyn kill d 6-14 10:00:00 [place] deficit: cg 10:00: [id number] 00 Nutrition nutritional Nutrition Unknown Roslyn restriction 6-14 [place] s 10:00: [id number] 00 Safety can be left Safety Resolve 2018-08-07 Roslyn alone for d 6-14 10:00:00 [place] only short 10:00: [id number] periods 00 Nutrition knowledge/s Nutrition Unknown Catia kill 6-14 [place] deficit: pt 10:30: 00 Nutrition nutritional Nutrition Unknown Catia restriction 6-14 [place] s 10:30: 00 Respiratory CPAP Respirator Resolve 2018-08-07 Vonnie treatments y d 6-17 10:00:00 [place] in home 09:00: [id number] 00 Nutrition knowledge/s Nutrition Resolve 2018-08-07 Vonnie kill d 6-17 10:00:00 [place] deficit: pt 09:00: [id number] 00 Nutrition nutritional Nutrition Resolve 2018-08-07 Vonnie restriction d 6-17 10:00:00 [place] s 09:00: [id number] 00 Cardio pacemaker/I Cardiovasc Resolve 2018-08-10 Catia CINTRON ular d 6-21 09:00:00 [place] 10:00: 00 [...] factor d 08-14 09:00:00 Thomas present 09:00: [id number] 00 Safety fire risk Safety Resolve 2018-08-28 Jennifer Baum present d 08-14 09:00:00 Thomas 09:00: [id number] 00 Safety risk for Safety Resolve 2018-2018-08-28 [facility] 08-14 09:00:00 Thomas tion 09:00: [id number] 00 Medication oral med Meds Resolve 2018-08-14 Catia assistance d 08-14 09:00:00 [place] required 09:00: 00 Cardio pacemaker/I Cardiovasc Resolve 2018-2018-08-28 Catia CINTRON ular d 7 09:00:00 [place] 09:00: 00 Medication oral med Meds Resolve 2018-08-28 Catia assistance d 08-21 09:00:00 [place] required 09:00: 00 Elimination nausea/vomi Eliminatio Resolve 2018-09-04 Catia bass n d 08-28 09:45:00 [place] 09:00: 00 Safety risk for Safety Unknown [facility] 08-28 [facility] tion 09:45: [id number] 00 Cardio pacemaker/I Cardiovasc Resolve 2018-09-11 Catia blackar d 09-04 09:00:00 [place] 09:45: 00 Medication oral med Meds Resolve 2018-09-11 Catia assistance d 09-04 09:00:00 [place] required 09:45: 00 Medication injectable Meds Unknown Catia med 09-04 [place] assistance 09:45: required 00 Respiratory dyspnea Respirator Resolve 2018 Catia present y d 09-11 09:00:00 [place] 09:00: 00 Respiratory oxygen Respirator Resolve 2018-10-23 Catia treatments y d 09-11 09:00:00 [place] in home 09:00: 00 Respiratory CPAP Respirator Resolve 2018-10-23 Catia treatments y d 09-11 09:00:00 [place] in home 09:00: 00 Nutrition nutritional Nutrition Resolve 2018-2018-09-18 Catia restriction d 09-11 10:00:00 [place] s 09:00: 00 Cardio pacemaker/I Cardiovasc Resolve 2018-10-09 Vonnie wilhelm d 09-18 10:20:00 [place] 10:00: [id number] 00 Safety risk for Safety Resolve 2018-09-18 Vonnie hospitaliza d 09-18 10:00:00 [place] tion 10:00: [id number] 00 Cardio chest pain Cardiovasc Resolve 2018-09-25 Vonnierea mendiola 09-25 10:10:00 [place] 10:10: [id number] 00 Cardio knowledge/s Cardiovasc Resolve 2018-2018-09-25 Vonnierea wilhelm d 09-25 10:10:00 [place] deficit: cg 10:10: [id number] 00 Neuro memory Neuro/Emot Resolve 2018-10-23 Vonnie deficit ion d 09-25 09:00:00 [place] needing 10:10: [id number] supervision 00 Safety risk for Safety Resolve 2018-09-25 Vonnie hospitaliza d 09-25 10:10:00 [place] tion 10:10: [id number] 00 Neuro depressive Neuro/Emot Resolve 2018-10-23 Catia feelings ion d 10-02 09:00:00 [place] present 09:00: 00 Safety risk for Safety Resolve 2018 Catia hospitaliza d 10-02 09:00:00 [place] tion 09:00: 00 Safety risk for Safety Resolve 2018-10-09 Vonnie hospitaliza d 10-06 10:20:00 [place] tion 11:40: [id number] 00 Elimination nausea/vomi Eliminatio Resolve 2018-10-16 Catia longo d 10-09 09:00:00 [place] 10:20: 00 Cardio pacemaker/I Cardiovasc Resolve 2018-10-23 Catia wilhelm d 10-16 09:00:00 [place] 09:00: 00 Safety fall risk Safety Resolve 2018-10-16 Catia martin d 10-16 09:00:00 [place] present 09:00: 00 Safety risk for Safety Resolve 2018-10-16 Catia fraseriztomasz mendiola 10-16 09:00:00 [place] tion 09:00: 00 Musculoskel transfer Musculoske Resolve 2018-10-23 Catia bearl assistance letal d 10-16 09:00:00 [place] required 09:00: 00 Safety risk for Safety Resolve 2018-10-23 Catia hospitaliza d 10-23 09:00:00 Valle[place] tion 09:00: 00 Social knowledge/s FEDE: Active [facility] Services kill Social 10-28 [facility] deficit - Services 16:15: [id number] pt 00 Cardio pacemaker/I Cardiovasc Resolve 2018-10-30 [...] hospitaliza d 1- 09:00:00 Traunstein tion 10:15: [id number] 00 Safety sanitation Safety Resolve 2018-022018-12-30 Janet hazards d 105 10:00:00 Chaudhari present 15:10: [id number] Safety fall risk Safety Resolve 2018-022018-12-24 Janet factor d 105 09:00:00 Chaudhari present 15:10: [id number] Respiratory oxygen Respirator Resolve 2018-022018-12-30 Catia treatments y d 07 10:00:00 Vallely in home 09:00: 00 Medication [...] 1-21 09:00:00 [place] in home 09:00: 00 Respiratory CPAP Respirator Resolve 2018-022019-01-07 Catia treatments y d 1-21 09:00:00 [place] in home 09:00: 00 Integument skin Integument Resolve 2018-022019-01-15 Catia integrity d 1- 08:00:00 Vallely risk 09:00: 00 Nutrition nutritional Nutrition Resolve 2018-022019-01-07 Catia restriction d - 09:00:00 Vallely s 09:00: 00 Nutrition nutritional Nutrition Resolve 2018-022019-01-22 Roslyn restriction d 03-13 08:00:00 Traunstein s 15:30: [id number] Respiratory oxygen Respirator Resolve 2018-022019-01-15 Catia treatments y d 1- 08:00:00 [place] in home 08:00: 00 Respiratory CPAP Respirator Resolve 2018-022019-01-15 Catia treatments y d 03-17 08:00:00 [place] in home 08:00: 00 Musculoskel requires Musculoske Resolve 2018-022019-01-15 Catia etal human letal d 1- 08:00:00 Vallely assist to 08:00: leave home [...] home 00 Respiratory dyspnea Respirator Resolve 2018-022019-01-29 aCtia present y d 2-13 09:00:00 Vallely 09:00: [...] 2018-02 Roslyn restriction 2-20 Traunstein s 10:15: [id number] Cardio pacemaker/I Cardiovasc Resolve 2018-022019-02-19 Catia CINTRON ular d 2- 09:00:00 Valle[place] 09:00: 00 Respiratory oxygen Respirator Resolve 2018-022019-02-12 Catia treatments y d 2-27 09:00:00 Valle[place] in home 09:00: 00 Respiratory CPAP Respirator Resolve 2018-022019-02-12 Catia treatments y d 2- 09:00:00 Vallely in home 09:00: 00 Nutrition nutritional Nutrition Resolve 2018-022019-02-12 Catia restriction d 2-27 09:00:00 Vallely s 09:00: 00 Safety fall risk Safety Resolve 2018-022019-02-19 Catia factor d 2- 09:00:00 Vallely present 09:00: 00 Musculoskel transfer Musculoske Resolve 2018-022019-02-12 Catia etal assistance letal d 2- 09:00:00 Vallely required 09:00: 00 Musculoskel requires Musculoske Resolve 2018-022019-02-12 Catia etal human letal d 2-27 09:00:00 Vallely assist to 09:00: leave home 00 Cardio chest pain Cardiovasc Resolve 2019-04-08 Catia ular d 1-03 09:00:00 Vallely 09:00: 00 Cardio pacemaker/I Cardiovasc Resolve 2019-0 2019-02-26 Catia CD ular d 1-10 08:30:00 Vallely 08:30: 00 Respiratory oxygen Respirator Resolve 2019-0 2019-03-05 Catia treatments y d 1-17 09:00:00 Valle[place] in home 09:00: 00 Respiratory CPAP Respirator Resolve 2019-0 2019-03-05 Catia treatments y d 1-17 09:00:00 Valle[place] in home 09:00: 00 Sensory impaired Sensory Resolve 2019-2019-03-12 Catia verbal d 1-17 09:00:00 Vallely communicati 09:00: on 00 Nutrition nutritional Nutrition Resolve 2019-2019-03-05 Catia restriction d 1-17 09:00:00 Vallely s 09:00: 00 Respiratory oxygen Respirator Resolve 2019-2019-03-12 Catia treatments y d 1-24 09:00:00 Vallely in home 09:00: 00 Respiratory CPAP Respirator Resolve 2019-2019-03-12 Catia treatments y d 1-24 09:00:00 Valle[place] in home 09:00: 00 Sensory impaired Sensory Active 2019- Catia verbal 1-31 Vallely communicati 09:00: on 00 Safety sanitation Safety Resolve 2019-2019-04-02 Catia hazards d 2-07 09:00:00 Vallely present 09:00: 00 Cardio pacemaker/I Cardiovasc Resolve 2019-0 2019-04-08 Catia CD ular d 2-14 09:00:00 Vallely 09:00: 00 Respiratory oxygen Respirator Resolve 2019-2019-04-14 Catia treatments y d 2-20 11:00:00 Vallely in home 09:00: 00 Respiratory lung sounds Respirator Resolve 2019-0 2019-04-08 Catia deficit y d 2-20 09:00:00 Vallely 09:00: 00 Respiratory CPAP Respirator Active 2019-0 Actia treatments y 2-20 Vallely in home 09:00: 00 Cardio pacemaker/I Cardiovasc Resolve 2019-2019-04-14 Catia CD ular d 2-26 11:00:00 Vallely 11:00: 00 Nutrition nutritional Nutrition Resolve 2019-04-14 Catia restriction d 04-14 11:00:00 Vallely s 11:00: 00 Safety fall risk Safety Resolve 2019-04-22 Catia factor d 04-14 09:00:00 Vallely present 11:00: 00 Musculoskel transfer Musculoske Active 2019- Catia etal assistance letal 04-14 Vallely required 11:00: 00 Cardio hypertensio Cardiovasc Resolve 2019-2019-04-29 Catia wilhelm d 3-05 09:00:00 Valle[place] 09:00: 00 Cardio pacemaker/I Cardiovasc Unknown 2019- Catia wilhelm 3- Vallely 09:00: 00 Respiratory oxygen Respirator Active 2019- Catia treatments y 3-05 Vallely in home 09:00: 00 Elimination nausea/vomi Eliminatio Resolve 2019-04-29 Catia longo d 3-05 09:00:00 Valle[place] 09:00: 00 Neuro depressive Neuro/Emot Active 2019- Catia feelings ion 3-05 Vallely present 09:00: 00 Cardio pacemaker/I Cardiovasc Resolve 2019-2019-04-29 Catia mendiola 3-12 09:00:00 Valle[place] 09:00: 00 Respiratory dyspnea Respirator Active 2019- Catia present y 3-12 Vallely 09:00: 00 Respiratory oxygen Respirator Unknown 2019-0 Catia treatments y 3-12 Vallely in home 09:00: 00 Neuro memory Neuro/Emot Active 2019-0 Catia deficit ion 3-12 Vallely needing 09:00: supervision 00 Safety can be left Safety Active 2019-0 Catia alone for 3-12 Vallely only short 09:00: periods 00 Medication oral med Meds Active 2019- Catia assistance -12 Vallely required 09:00: 00 Medication potential Meds Active 2019-0 Catia clinically 3-12 Vallely significant 09:00: medication 00 issue Safety risk for Safety Active 2019- Sarah hospitaliza 3-19 Malnoske tion 13:00: RN 00 Allergies, Adverse Reactions, Alerts Allergy Allergy Status Severity Reaction(s) Onset Inactive Treating Comments Name Type Date Date Clinician shellfish Unknown Active Unknown Reaction 2017-05 Massiel Unknown -11 (Maria G) Shaun [id number] IVP DYE Unknown Active Unknown Reaction 2017-05 Massiel Unknown -11 (Maria G) Shaun [id number] Medications Ordered Filled Start Stop Current Ordering [...] Unknown en 500 mg en 500 mg ,Erasmo tablet tablet traMADol 50 traMADol 50 No Midura Unknown Unknown mg tablet mg tablet Erasmo ANDERSON hydroCHLORO hydroCHLORO No Midura Unknown Unknown thiazide 25 thiazide 25 ,Erasmo mg tablet mg tablet Colace 100 Colace 100 No Midura Unknown Unknown mg capsule mg capsule Erasmo ANDERSON Maalox Maalox No Midura Unknown Unknown Maximum Maximum Erasmo ANDERSON Strength Strength 400 mg-400 400 mg-400 mg-40 mg/5 mg-40 mg/5 mL oral mL oral suspension suspension aspirin 81 aspirin 81 No Midura Unknown Unknown mg chewable mg chewable 02-19 ,Erasmo tablet tablet furosemide furosemide 2018- No Midura Unknown Unknown 20 mg 20 mg 02-19 ,Erasmo tablet tablet atorvastati atorvastati No Midura Unknown Unknown n 80 mg n 80 mg 02-19 ,Erasmo tablet tablet metoprolol metoprolol No Midura Unknown Unknown succinate succinate 02-19 Erasmo ANDERSON ER 25 mg ER 25 mg tablet,exte tablet,exte nded nded release 24 release 24 hr hr lisinopril lisinopril 2018- No Midura Unknown Unknown 2.5 mg 2.5 mg 02-19 ,Erasmo tablet tablet dilTIAZem dilTIAZem No Midura Unknown Unknown 30 mg 30 mg 02-19 ,Erasmo tablet tablet Janumet 50 Janumet 50 No Midura Unknown Unknown mg-1,000 mg mg-1,000 mg 02-19 ,Erasmo tablet tablet Xarelto 20 Xarelto 20 2018- No Midura Unknown Unknown mg tablet mg tablet 02-19 ,Erasmo gabapentin gabapentin 2018- No Midura Unknown Unknown [...] Unknown Unknown sulfate 325 sulfate 325 02-19 ,Erasmo mg (65 mg mg (65 mg iron) iron) tablet,belkys tablet,belkys yed release yed release lactulose lactulose 2018- No Midura Unknown Unknown 20 gram/30 20 gram/30 02-19 Erasmo ANDERSON mL oral mL oral solution solution potassium potassium 2018- No Midura Unknown Unknown chloride ER chloride ER 02-19 ,Erasmo 20 mEq 20 mEq tablet,exte tablet,exte nded nded release(par release(par t/cryst) t/cryst) thiamine thiamine No Midura Unknown Unknown HCl HCl 02-19 ,Erasmo (vitamin (vitamin B1) 100 mg B1) 100 mg tablet tablet zinc zinc 2018- No Midura Unknown Unknown sulfate 220 sulfate 220 02-19 ,Erasmo mg tablet mg tablet omeprazole omeprazole No Midura Unknown Unknown 20 mg 20 mg 02-19 MD,Erasmo capsule,del capsule,del ayed ayed release release ferrous ferrous 2018- No Midura Unknown Unknown sulfate 325 sulfate 325 02-19 ,Erasmo mg (65 mg mg (65 mg iron) iron) tablet,belkys tablet,belkys yed release yed release magnesium magnesium 2018- No Midura Unknown Unknown oxide 400 oxide 400 02-19 ,Erasmo mg (241.3 mg (241.3 mg mg magnesium) magnesium) tablet tablet Maalox Maalox No Midura Unknown Unknown Maximum Maximum 02-19 Erasmo ANDERSON Strength Strength 400 mg-400 400 mg-400 mg-40 mg/5 mg-40 mg/5 mL oral mL oral suspension suspension Colace 100 Colace 100 2018- No Midura Unknown Unknown mg capsule mg capsule 02-19 Erasmo ANDERSON albuterol albuterol 2018- No Midura Unknown Unknown sulfate HFA sulfate HFA 02-19 ,Erasmo 90 90 mcg/actuati mcg/actuati on aerosol on aerosol inhaler inhaler Nitrostat Nitrostat No Midura Unknown Unknown 0.4 mg 0.4 mg - Erasmo ANDERSON sublingual sublingual tablet tablet Tylenol Tylenol No Midura Unknown Unknown Extra Extra 1- Erasmo ANDERSON Strength Strength 500 mg 500 mg tablet tablet Colace 100 Colace 100 2018- No Midura Unknown Unknown mg capsule mg capsule 02-19- Erasmo ANDERSON albuterol albuterol No Midura Unknown Unknown sulfate HFA sulfate HFA 02-19 MD,Erasmo 90 90 mcg/actuati mcg/actuati on aerosol on aerosol inhaler inhaler ferrous ferrous 2018- No Midura Unknown Unknown sulfate 325 sulfate 325 02-27 ,Erasmo mg (65 mg mg (65 mg iron) iron) tablet,belkys tablet,belkys yed release yed release magnesium magnesium No Midura Unknown Unknown oxide 400 oxide 400 03-18 MD,Erasmo mg (241.3 mg (241.3 mg mg magnesium) magnesium) tablet tablet lactulose lactulose No Midura Unknown Unknown 20 gram/30 20 gram/30 2-20 Erasmo ANDERSON mL oral mL oral solution solution furosemide furosemide No Bhargavi Unknown Unknown 20 mg 20 mg 04-24 CHERELLE Sheikh tablet tablet furosemide furosemide 2018- No Maghaydah Unknown Unknown 20 mg 20 mg 04-24- ,Qutaybe tablet tablet h torsemide torsemide 2018- No Maghaydah Unknown Unknown 20 mg 20 mg 04-29 ,Qutaybe tablet tablet h Lasix 20 mg Lasix 20 mg 2018- No Maghaydah Unknown Unknown tablet tablet 05-05 ,Qutaybe h cephALEXin cephALEXin 2018- No Midura Unknown Unknown 500 mg 500 mg 05-06 Erasmo ANDERSON capsule capsule triamcinolo triamcinolo 2018- No Midura Unknown Unknown ne ne 05-06 Erasmo ANDERSON acetonide acetonide 0.1 % 0.1 % topical topical cream cream Lasix 20 mg Lasix 20 mg 2018- No Maghaydah Unknown Unknown tablet tablet 3-21 03-21 MD,Qutaybe h Lasix 20 mg Lasix 20 mg Maghaydah Unknown Unknown tablet tablet 05-07 MD,Qutaybe h furosemide furosemide No Maghaydah Unknown Unknown 20 mg 20 mg 05-09 MD,Qutaybe tablet tablet h Lasix 20 mg Lasix 20 mg No Maghaydah Unknown Unknown tablet tablet 05-08 MD,Qutaybe [...] mg 05-14 MD,Erasmo tablet tablet ferrous ferrous No Midura Unknown Unknown sulfate 325 sulfate 325 05-14 MD,Erasmo mg (65 mg mg (65 mg iron) iron) tablet,belkys tablet,belkys yed release yed release Oxygen Oxygen 2018- Midura Unknown Unknown 05-15 MD,Erasmo zinc zinc Midura Unknown Unknown sulfate 220 sulfate 220 05-14 MD,Erasmo mg tablet mg tablet furosemide furosemide Maghaydah Unknown Unknown 40 mg 40 mg 05-14 MD,Qutaybe tablet tablet h Lasix 40 mg Lasix 40 mg Maghaydah Unknown Unknown tablet tablet 05-27 ,Qutaybe magda bumetanide bumetanide 2018- No Maghaydah Unknown Unknown 1 mg tablet 1 mg tablet 05-28 ,Qutaybe h bumetanide bumetanide No Maghaydah Unknown Unknown 1 mg tablet 1 mg tablet 06-01 ,Qutaybe h bumetanide bumetanide Maghaydah Unknown Unknown 1 mg tablet 1 mg tablet 05-29 ,Qutaybe h torsemide torsemide 2018- No Midura Unknown Unknown 20 mg 20 mg 06-05 ,Erasmo tablet tablet patiromer patiromer 2018- No Kardon Unknown Unknown calcium calcium 06-05- MD,Driss sorbitex sorbitex 8.4 gram 8.4 gram oral powder oral powder packet packet zinc oxide zinc oxide No Midura Unknown Unknown 16 % 16 % 06-07 ,Erasmo topical topical ointment ointment torsemide torsemide 2018- No Maghaydah Unknown Unknown 20 mg 20 mg 06-11- MD,Qutaybe tablet tablet h torsemide torsemide 2018- No Maghaydah Unknown Unknown 20 mg 20 mg 06-13 MD,Qutaybe tablet tablet h torsemide torsemide 2018- No Maghaydah Unknown Unknown 20 mg 20 mg 06-12 MD,Qutaybe tablet tablet h torsemide torsemide 2018- No Maghaydah Unknown Unknown 20 mg 20 mg 06-14- MD,Qutaybe tablet tablet h ferrous ferrous 2018- No Midura Unknown Unknown sulfate 325 sulfate 325 06-17 ,Erasmo mg (65 mg mg (65 mg iron) iron) tablet,belkys tablet,belkys yed release yed release Colace 100 Colace 100 2018- No Midura [...] Unknown Unknown mcg/actuati mcg/actuati 06-25 ,Qutaybe on Imb[place] on Imboden h Cipro 500 Cipro 500 2018- No Midura Unknown Unknown mg tablet mg tablet 07-03 ,Erasmo torsemide torsemide 2018- No Maghaydah Unknown Unknown 20 mg 20 mg 07-21- MD,Qutaybe tablet tablet h metOLazone metOLazone 2018- No Maghaydah Unknown Unknown 2.5 mg 2.5 mg 07-21 MD,Qutaybe tablet tablet h mometasone mometasone No Midura Unknown Unknown 0.1 % 0.1 % 08-04 ,Erasmo topical topical cream cream torsemide torsemide 2019- No Maghaydah Unknown Unknown 10 mg 10 mg 10-07 03 MD,Qutaybe tablet tablet h clonazePAM clonazePAM 2018- Midura Unknown Unknown 0.5 mg 0.5 mg 10-27 ,Erasmo tablet tablet Oxygen Oxygen No Midura Unknown Unknown 10-30 ,Erasmo ferrous ferrous No Midura Unknown Unknown sulfate 325 sulfate 325 10-30 MD,Erasmo mg (65 mg mg (65 mg [...] Unknown mg tablet mg tablet 11-13 10- ,Erasmo glimepiride glimepiride 2018-02- No Midura Unknown Unknown 2 mg tablet 2 mg tablet 02-12 Erasmo ANDERSON metOLazone metOLazone 2018-02- No Maghaydah Unknown Unknown 2.5 mg 2.5 mg 02-23 11- ,Qutaybe tablet tablet h metOLazone metOLazone 2018-02- No Maghaydah Unknown Unknown 2.5 mg 2.5 mg 03-01 MD,Qutaybe tablet tablet h azithromyci azithromyci 2018-02- No Midura Unknown Unknown n 250 mg n 250 mg 02-28- MD,Erasmo tablet tablet azithromyci azithromyci 2018-02- No Midura Unknown Unknown n 250 mg n 250 mg 02-23-14 MD,Erasmo tablet tablet metOLazone metOLazone 2018-02- No Maghaydah Unknown Unknown 2.5 mg 2.5 mg 03-08- MD,Qutaybe tablet tablet h metOLazone metOLazone 2018-02 No Maghaydah Unknown Unknown 2.5 mg 2.5 mg 04-04 MD,Qutaybe tablet tablet h traZODone traZODone 2018-02- Yes Midura Unknown Unknown 50 mg 50 mg [...] Maghaydah Unknown Unknown 20 mg 20 mg 3- MD,Qutaybe tablet tablet h Vital Signs Vital [...]
--- OUTSIDE RECORDS SUMMARY | 2019-05-13 12:13 | XMS REPORT | Continuity of Care Document ---
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 Onset: 06/04/2011 Electrocardiogram abnormal Timmy German M.D. Onset: 06/04/2011 Benign essential hypertension Timmy German M.D. Onset: 06/04/2011 Hyperlipidemia Timmy German M.D. Onset: 06/04/2011 Automatic implantable cardiac Timmy German M.D. Onset: 06/04/2011 defibrillator in situ Coronary arteriosclerosis [facility] Onset: 07/11/2011 Chronic ischemic heart disease [facility] Schedule Onset: 07/11/2011 Tachycardia Timmy German M.D. Onset: 05/26/2012 Dyspnea Timmy German M.D. Onset: 05/26/2012 Spinal stenosis of lumbar region Leobardo Reynoso M.D. Onset: 10/16/2012 Preoperative cardiovascular Timmy German M.D. Onset: 11/24/2012 examination Arthralgia of the lower leg Edmund Jasso M.D. Onset: 02/02/2013 Disturbance in sleep behavior Delilah Fregoso MD Onset: 06/12/2016 Obstructive sleep apnea syndrome Macey Cespedes DNP, RN, Onset: 07/19/2016 [facility] Hypersomnia Macey Cespedes DNP RN, Onset: 07/19/2016 [facility] Epistaxis Macey Cespedes DNP RN, Onset: 11/01/2016 [facility] Syncope and collapse CHERELLE Coffey Onset: 11/05/2017 Atrial fibrillation CHERELLE Coffey Onset: 11/05/2017 Chronic kidney disease CHERELLE Coffey Onset: 11/05/2017 Cardiomyopathy, unspecified CHERELLE Coffey Onset: 11/05/2017 Chronic obstructive lung disease CHERELLE Coffey Onset: 11/05/2017 Type 2 diabetes mellitus CHERELLE Coffey Onset: 11/05/2017 Hypertensive heart and chronic kidney CHERELLE Coffey Onset: 11/06/2017 disease without heart failure, with stage 1 through stage 4 chronic kidney disease, or unspecified chronic kidney disease Hyperkalemia CHERELLE Coffey Onset: 11/07/2017 Acute renal failure syndrome CHERELLE Coffey Onset: 11/08/2017 Heart failure, unspecified CHERELLE Coffey Onset: 11/08/2017 Iron deficiency anemia CHERELLE Coffey Onset: 11/08/2017 Paroxysmal supraventricular Bhargavi Sheikh N.P. Onset: 12/29/2017 tachycardia Hypoglycemic event in diabetes Lis Dickerson MD Onset: 01/26/2018 Urinary tract infectious disease Yonas Perkins MD Onset: 2017 Acute diastolic heart failure Yonas Perkins MD Onset: 01/28/2018 Static encephalopathy Danica Ch MD Onset: 01/31/2018 Other ascites Danica Ch MD Onset: 01/31/2018 Disorder of the urea cycle metabolism Danica Ch MD Onset: 02/01/2018 Chronic diastolic heart failure Marilee Jacobs DO Onset: 02/03/2018 Adult failure to thrive syndrome Marilee Jacobs DO Onset: 02/04/2018 Hypokalemia Marilee Jacobs DO Onset: 02/04/2018 Social History Type Date Description Comments Sex Unknown Tobacco Use Start: Unknown End: Former Cigarette Smoker Unknown Tobacco Use Start: Unknown End: Former Cigarette Smoker 3 Unknown Packs Daily Smoking Status Reviewed: 01/12/19 Former Cigarette Smoker 3 Packs Daily ETOH Use Denies alcohol use Tobacco Use Start: Unknown End: Patient is a former smoker Unknown Recreational Drug Use Denies Drug Use Exercise Type/Frequency Does not exercise Allergies, Adverse Reactions, Alerts Active Allergies Reaction Severity Comments Date contrast dye Urticaria 06/14/2009 Shellfish Urticaria 08/30/2016 Trazodone Vomiting Moderate 02/12/2019 Inactive Allergies Torsemide Contact dermatitis, red Mild arms and chest torsemide dc 2018 splotchy rash on arms and 05/06/18 changed to lasix NKDA 12/22/2018 Medications Active Medications SIG Qnty Indications Ordering Date Provider Torsemide 3 by mouth every Bhargavi Sheikh, 04/15/2019 20mg day N.P. Tablets Cipro 1 by mouth twice a Unknown 11/13/2018 500mg Tablets day for 14 days Metolazone 1 tab by mouth 14tabs I27.81 Bhargavi Sheikh, 07/17/2018 2.5mg friday, friday N.P. Tablets and friday 30 min before torsemide Oxygen 2L via nasal Cont Bhargavi Sheikh, 05/28/2018 Misc cannula at rest and N.P. exertion. Maalox Regular 30 ml every 6 hr Qutaybeh S. 03/18/2018 Strength prn Etelvina German [phone]/5ML Suspension Lactulose 30 ml po bid 1500ml Qutaybeh S. 03/18/2018 20GM/30ML Etelvina German Solution Nitroglycerin 1 sl q5mins x3 as Unknown 05/04/2017 0.4mg needed for chest Tablets Sub pain Xarelto 1 by mouth every 90tabs I48.91 Qutaybeh S. 02/21/2017 20mg Tablets day Etelvina German Magnesium Oxide 1 by mouth three 270tabs Qutaybeh S. 07/22/2016 400mg times daily Etelvina German Tablets Metoprolol Succinate 1 by mouth daily. 180tabs I42.9 Qutaybeh S. 2016 ER Etelvina German 25mg Tablets ER 24HR Nasonex 1 [place] Jon Each 1Mon Qutaybeh S. 02/04/2008 50mcg/Act Side qd Etelvina German Suspension Tylenol 2 tablets by mouth 100tabs Qutaybeh S. 02/04/2008 500mg Tablets daily prn Etelvina German Albuterol 1 po bid prn Unknown 90mcg/Act Aerosol Diltiazem HCL 1 by mouth twice a 180tabs Bhargavi Sheikh, 30mg day N.P. Tablets Cetirizine HCL 1 by mouth every Unknown 10mg day Tablets Symbicort 2 puff twice a day Unknown 160-4.5mcg/Act Aerosol Omeprazole 1 by mouth daily Unknown 20mg Tablets Atorvastatin Calcium take one tablet by 90tabs Bhargavi Sheikh, mouth every day N.P. 80mg Tablets Aspirin 1 by mouth every Unknown 81mg Tablets day DR Ramos 1 tab by mouth Unknown 50-1000mg twice daily Tablets Colace 1 tab every 12 Unknown 100mg Capsules hours as needed for constipation Ferrous Sulfate 1 tablet by mouth Unknown daily 325(65Fe) mg Tablets Glimepiride 2 tab by mouth Unknown 2mg daily Tablets Medications Administered in Office Medication SIG Qnty Indications Ordering Provider Date Inj, Regadenoson, 0.1 MG Zaid Kline M.D. 08/06/2018 Injection Technetium TC 99M TetrofosminZaid M.D. 08/06/2018 Per Unit Dose Up To 40 Millicuries Injection Technetium TC 99M TetrofosminZaid M.D. 08/06/2018 Per Unit Dose Up To 40 Millicuries Injection Depomedrol 80MG DAVEY Ramsay 01/17/2011 Injection Immunizations Description No Information Available Vital Signs Date Vital Result Comment 01/12/2019 1:41pm Height 67 inches 5'7" Weight 177.00 lb with shoes Heart Rate 72 /min BP Systolic Sitting 108 mmHg lue reg cuff BP Diastolic Sitting 70 mmHg lue reg cuff BP Systolic Standing 110 mmHg lue reg cuff BP Diastolic Standing 70 mmHg lue reg cuff Respiratory Rate 14 /min BMI (Body Mass Index) 27.7 kg/m2 Ejection Fraction 50-55% echo. 05/11/18 01/05/2019 8:14am Height 67 inches 5'7" Weight 178.12 lb Heart Rate 90 /min BP Systolic Sitting 148 mmHg Rue reg cuff BP Diastolic Sitting 84 mmHg Rue reg cuff O2 % BldC Oximetry 98 % Supplemental oxygen at 2 pulse, portable [facility], [place] BMI (Body Mass Index) 27.9 kg/m2 Results Test Acquired Date Facility Test Result H/L Range Note CBC Auto 01/05/2019 [facility] White Blood 7.5 10^3/uL Normal 3.5-10.[address] [place] [address] [phone] Red Blood Count 4.76 10^6/uL Normal 4.18-5.48 Hemoglobin 11.7 g/dL Low 14.0-18.0 Hematocrit 36 % Low 42-52 Mean Corpuscular Volume 75 fL Low 80-94 Mean Corpuscular Hemoglobin 25 pg Low 27-31 Mean Corpuscular HGB Conc 33 g/dL Normal 31-36 Red Cell Distribution Width 15 % Normal 10-15 Platelet Count 185 10^3/uL Normal 150-450 Mean Platelet Volume 8.4 fL Normal 7.4-10.4 Abs Neutrophils 5.3 10^3/uL Normal 1.5-7.7 Abs Lymphocytes 1.2 10^3/uL Normal 1.0-4.8 Abs Monocytes 0.7 10^3/uL Normal 0-0.8 Abs Eosinophils 0.3 10^3/uL Normal 0-0.6 Abs Basophils 0.1 10^3/uL Normal 0-0.2 Abs Nucleated RBC 0.0 10^3/uL Granulocyte % 70.2 % Lymphocyte % 15.9 % Monocyte % 8.8 % Eosinophil % 3.9 % Basophil % 1.2 % Nucleated Red Blood Cells % 0.0 Laboratory test 01/05/2019 [facility] B-Type 162 pg/mL High <= [address] [place] [address] Peptide BNP [phone] Basic Metabolic 01/05/2019 [facility] Sodium 133 Low 135-[address] mmol/L [place], [place] [id number] [phone] Potassium 4.8 mmol/L Normal 3.5-5.0 Chloride 93 mmol/L Low 101-111 Co2 Carbon Dioxide 31 mmol/L Normal 22-32 Anion Gap 9 mmol/L Normal 2-11 Glucose 280 mg/dL High 70-100 Blood Urea Nitrogen 52 mg/dL High 6-24 Creatinine 1.73 mg/dL High 0.67-1.17 BUN/Creatinine Ratio 30.1 High 8-20 Calcium 9.3 mg/dL Normal 8.6-10.3 Egfr Non- 40.8 >60 Egfr 49.3 >60 1 1 Because ethnic data is not always [...] Kidney failure <15 (or dialysis) Procedures Date Code Description Status 04/27/2019 05765 Icd Check Single,Dual Or Multiple In Person W/DR Law Completed Heart Rhyth 04/27/2019 03944 Icd Check Single,Dual Or Multiple In Person W/DR Law Completed Heart Rhyth 01/12/2019 41855 Icd eval w/iterative adjment single lead Icd Completed 01/12/2019 74966 Icd eval w/iterative adjment single lead Icd Completed 11/05/2018 96719 Icd Eval With Inerative Adjustmt Dual Lead System Completed 11/05/2018 32305 Icd Eval With Inerative Adjustmt Dual Lead System Completed 04/07/2018 24744223 Colonoscopy Completed Medical Devices Description No Information Available Encounters Type Date Location Provider Dx Diagnosis Office Visit 01/12/2019 [facility] Bhargavi Sheikh, Z95.810 Presence of 1:30p Of Eyeglass Maker N.P. automatic (implantable) cardiac defibrillator I50.42 Chronic combined systolic and diastolic hrt fail G47.33 Obstructive sleep apnea (adult) (pediatric) R53.83 Other fatigue I48.91 Unspecified atrial fibrillation I25.10 Athscl heart disease of [place] coronary artery w/o ang pctrs Office Visit 01/05/2019 [facility] G47.33 Obstructive sleep 9:30a [facility] apnea (adult) Eyeglass Maker (pediatric) R53.83 Other fatigue R09.02 Hypoxemia Office Visit 12/22/2018 Vishnu Mercado Z95.810 Presence of 2:00p [facility] [place], [facility] automatic Eyeglass Maker (implantable) cardiac defibrillator G47.33 Obstructive sleep apnea (adult) (pediatric) I48.91 Unspecified atrial fibrillation I25.10 Athscl heart disease of [place] coronary artery w/o ang pctrs I50.42 Chronic combined systolic and diastolic hrt fail Assessments Date Code Description Provider 04/27/2019 Z95.810 Presence of automatic (implantable) Timmy German M.D. cardiac defibrillator 04/27/2019 Z95.810 Presence of automatic (implantable) [facility] Schedule cardiac defibrillator 04/27/2019 I50.42 Chronic combined systolic (congestive) Timmy German M.D. and diastolic (congestive) heart failure 04/27/2019 I50.42 Chronic combined systolic (congestive) [facility] Schedule and diastolic (conges 04/27/2019 I48.91 Unspecified atrial fibrillation Timmy German M.D. 04/27/2019 I48.91 Unspecified atrial fibrillation [facility] Schedule 01/12/2019 Z95.810 Presence of automatic (implantable) Timmy German M.D. cardiac defibrillator 01/12/2019 Z95.810 Presence of automatic (implantable) Bhargavi Sheikh, N.P. cardiac defibrillator 01/12/2019 Z95.810 Presence of automatic (implantable) [facility] Schedule cardiac defibrillator 01/12/2019 I50.42 Chronic combined systolic (congestive) Bhargavi Sheikh, N.P. and diastolic (conges 01/12/2019 I50.42 Chronic combined systolic (congestive) [facility] Schedule and diastolic (conges 01/12/2019 G47.33 Obstructive sleep apnea (adult) Bhargavi Sheikh, N.P. (pediatric) 01/12/2019 R53.83 Other fatigue Bhargavi Sheikh, N.P. 01/12/2019 I48.91 Unspecified atrial fibrillation Bhargavi Sheikh, N.P. 01/12/2019 I25.10 Atherosclerotic heart disease of Bhargavi Sheikh, N.P. [place] coronary artery with 01/05/2019 G47.33 Obstructive sleep apnea (adult) Elvia Joshi NP (pediatric) 01/05/2019 R53.83 Other fatigue Elvia Joshi NP 01/05/2019 R09.02 Hypoxemia Elvia Joshi NP 12/22/2018 Z95.810 Presence of automatic (implantable) Bhargavi Sheikh N.P. cardiac defibrillator 12/22/2018 G47.33 Obstructive sleep apnea (adult) Bhargavi Sheikh, N.P. (pediatric) 12/22/2018 I48.91 Unspecified atrial fibrillation Bhargavi Sheikh, N.P. 12/22/2018 I25.10 Atherosclerotic heart disease of Bhargavi Sheikh, N.P. [place] coronary artery with 12/22/2018 I50.42 Chronic combined systolic (congestive) Bhargavi Sheikh, N.P. and diastolic (conges 11/05/2018 Z95.810 Presence of automatic (implantable) Timmy German M.D. cardiac defibrillator 11/05/2018 Z95.810 Presence of automatic (implantable) [facility] Schedule cardiac defibrillator Plan of Treatment Future Appointment(s):05/18/2019 1:30 pm - Elvia Joshi NP at [facility]05/20/2019 1:20 pm - Timmy German M.D. at [facility]01/12/2019 - Bhargavi Sheikh NLinaPLinaZ95.810 Presence of automatic (implantable) cardiac jwhzrgbfroizyF25.42 Chronic combined systolic (congestive) and diastolic (congesFollow up:OV 05/2019 QSMRecommendations:Lung sounds decreased on L side. Fluid status looks good Continue current diuretic regimen I will await GI note and if you can stay on xarelto I will send you back to dr lynn for watchman procedure.G47.33 Obstructive sleep apnea (adult) (pediatric)R53.83 Other orwjwelE05.91 Unspecified atrial fibrillationRecommendations:Continue xarelto for now.I25.10 Atherosclerotic heart disease of [place] coronary artery with Functional Status Description No Information Available Mental Status Description No Information Available Referrals Description No Information Available
--- OUTSIDE RECORDS SUMMARY | 2019-05-13 12:13 | XMS REPORT | Continuity of Care Document ---
:1960 External Reference #:[id number] Author Name Kishor Marrufo MD (transmitted by agent of provider Caitie Gonzalez) Address [address] [place] [id number] Care Team Providers Name Role Phone Erasmo Hill MD - Family Medicine Care Team Information Vessel Operator [phone] Problems Active Problems Provider Date Alcoholic cirrhosis Kishor Marrufo MD Onset: 01/27/2019 Cirrhosis - non-alcoholic Kishor Marrufo MD Onset: 10/08/2018 Hemorrhage of rectum and anus Martin Prasad M.D. Onset: 11/09/2012 Social History Type Date Description Comments Sex Unknown ETOH Use Denies alcohol use Tobacco Use Start: Unknown End: Unknown Patient is a former smoker Smoking Status Reviewed: 03/31/19 Patient is a former smoker Allergies, Adverse Reactions, Alerts Active Allergies Reaction Severity Comments Date Contrast Dye 11/09/2012 Amoxicillin 05/25/2018 Medications Active Medications SIG Qnty Indications Ordering Provider Date Nitrostat 1 sl as needed, 75tabs Kishor Marrufo, 10/09/2018 0.4mg Tablets repeat every 5 MD Sub minutes up to three tabs, call 911 Oxygen 2 Liters prn Kishor Marrufo, 10/09/2018 Glimepiride 2 Tabs Daily Unknown 2mg Tablets Xarelto 1 by mouth every Unknown 20mg Tablets day Torsemide 1 by mouth twice 60tabs iKshor Marrufo, 10mg Tablets a day Colace 1 tab by mouTH Unknown 100mg Capsules bid Ferrous Sulfate 1 by mouth every Unknown 325(65Fe) day mg Tablets Lactulose 30 ml every 12 600ml Kishor Marrufo, 20GM/30ML hours MD Solution Magnesium Oxide 400 1 tid Unknown 240mg Packet Ventolin HFA bid prn Unknown 108(90Base) mcg/Act Aerosol Omeprazole 1 by mouth every Unknown 20mg Capsules day Symbicort 2 Puffs bid Unknown 80-4.5mcg/Act Aerosol Zyrtec Allergy 1 by mouth every Unknown 10mg day Capsules Janumet bid Unknown 50-1000mg Tablets Diltiazem HCL bid Unknown 30mg Tablets Metoprolol Succinate Daily Unknown ER 25mg Tablets ER 24HR Atorvastatin Calcium Daily AT hs Unknown 80mg Tablets Aspirin 81 daily Unknown 81mg Tablets Immunizations CPT Code Status Date Vaccine Lot # [id number] Given 05/01/2014 Pneumovax Vital Signs Date Vital Result Comment 03/31/2019 10:47am Height 68 inches 5'8" Weight 182.00 lb BP Systolic 139 mmHg BP Diastolic 80 mmHg Heart Rate 88 /min BMI (Body Mass Index) 27.7 kg/m2 01/27/2019 10:52am Height 68 inches 5'8" Weight 182.00 lb BP Systolic 143 mmHg BP Diastolic 79 mmHg Heart Rate 77 /min BMI (Body Mass Index) 27.7 kg/m2 Results Test Acquired Date Facility Test Result H/L Range Note Laboratory test 04/26/2019 [facility] [place] RESULT 1 finding BELOW CBC W/Auto 03/31/2019 [facility] White Blood 8.5 10^3/uL Normal 3.5-10.8 Differential(!) Count Red Blood Count 5.09 10^6/uL Normal 4.18-5.48 Hemoglobin 13.0 g/dL Low 14.0-18.0 Hematocrit 38 % Low 42-52 Mean Corpuscular Volume 76 fL Low 80-94 Mean Corpuscular Hemoglobin 26 pg Low 27-31 Mean Corpuscular HGB Conc 34 g/dL Normal 31-36 Red Cell Distribution Width 15 % Normal 10-15 Platelet Count 145 10^3/uL Low 150-450 Mean Platelet Volume 9.1 fL Normal 7.4-10.4 Abs Neutrophils 6.4 10^3/uL Normal 1.5-7.7 Abs Lymphocytes 1.3 10^3/uL Normal 1.0-4.8 Abs Monocytes 0.6 10^3/uL Normal 0-0.8 Abs Eosinophils 0.2 10^3/uL Normal 0-0.6 Abs Basophils 0.0 10^3/uL Normal 0-0.2 Abs Nucleated RBC 0.0 10^3/uL Granulocyte % 75.1 % Lymphocyte % 14.8 % Monocyte % 7.4 % Eosinophil % 2.2 % Basophil % 0.5 % Nucleated Red Blood Cells % 0.0 CMP(!) 03/31/2019 [facility] Sodium 133 mmol/L Low 135-145 Potassium 4.6 mmol/L Normal 3.5-5.0 Chloride 91 mmol/L Low 101-111 Co2 Carbon Dioxide 32 mmol/L Normal 22-32 Anion Gap 10 mmol/L Normal 2-11 Blood Urea Nitrogen 36 mg/dL High 6-24 Creatinine 1.77 mg/dL High 0.67-1.17 BUN/Creatinine Ratio 20.3 High 8-20 Calcium 9.8 mg/dL Normal 8.6-10.3 Total Protein 7.2 g/dL Normal 6.4-8.9 Albumin 4.4 g/dL Normal 3.2-5.2 Globulin 2.8 g/dL Normal 2-4 Albumin/Globulin Ratio 1.6 Normal 1-3 Total Bilirubin 0.50 mg/dL Normal 0.2-1.0 Alkaline Phosphatase 121 U/L High 34-104 Alt 21 U/L Normal 7-52 Ast 14 U/L Normal 13-39 Egfr Non- 39.7 >60 Egfr 48.0 >60 2 Glucose 519 mg/dL Critical high 70-100 3 CBC W/Auto 01/27/2019 [facility] White Blood 9.7 10^3/uL Normal 3.5-10.8 Differential(!) Count Red Blood Count 5.06 10^6/uL Normal 4.18-5.48 Hemoglobin 13.0 g/dL Low 14.0-18.0 Hematocrit 38 % Low 42-52 Mean Corpuscular Volume 75 fL Low 80-94 Mean Corpuscular Hemoglobin 26 pg Low 27-31 Mean Corpuscular HGB Conc 35 g/dL Normal 31-36 Red Cell Distribution Width 15 % Normal 10-15 Platelet Count 171 10^3/uL Normal 150-450 Mean Platelet Volume 9.2 fL Normal 7.4-10.4 Abs Neutrophils 7.1 10^3/uL Normal 1.5-7.7 Abs Lymphocytes 1.6 10^3/uL Normal 1.0-4.8 Abs Monocytes 0.7 10^3/uL Normal 0-0.8 Abs Eosinophils 0.3 10^3/uL Normal 0-0.6 Abs Basophils 0.1 10^3/uL Normal 0-0.2 Abs Nucleated RBC 0.0 10^3/uL Granulocyte % 73.3 % Lymphocyte % 16.2 % Monocyte % 6.8 % Eosinophil % 3.0 % Basophil % 0.7 % Nucleated Red Blood Cells % 0.1 CMP(!) 01/27/2019 [facility] Sodium 136 mmol/L Normal 135-145 Potassium 4.5 mmol/L Normal 3.5-5.0 Chloride 96 mmol/L Low 101-111 Co2 Carbon Dioxide 28 mmol/L Normal 22-32 Anion Gap 12 mmol/L High 2-11 Glucose 369 mg/dL High 70-100 Blood Urea Nitrogen 50 mg/dL High 6-24 Creatinine 1.71 mg/dL High 0.67-1.17 BUN/Creatinine Ratio 29.2 High 8-20 Calcium 9.1 mg/dL Normal 8.6-10.3 Total Protein 7.3 g/dL Normal 6.4-8.9 Albumin 4.3 g/dL Normal 3.2-5.2 Globulin 3.0 g/dL Normal 2-4 Albumin/Globulin Ratio 1.4 Normal 1-3 Total Bilirubin 0.50 mg/dL Normal 0.2-1.0 Alkaline Phosphatase 108 U/L High 34-104 Alt 23 U/L Normal 7-52 Ast 17 U/L Normal 13-39 Egfr Non- 41.3 >60 Egfr 50.0 >60 4 Laboratory test finding 01/27/2019 [facility] Inr 1.12 High 0.82-1.09 5 1 SEE RESULT BELOW Name: FERCHO FRIAS Pancho : [address]: Kishor Marrufo MD Acct: [id number] Unit: [id number] AGE: 58 Location: [facility] Re04/26/19 SEX: M Status: REG REF SPEC: [id number] VINH: 04/26/19-[address] [facility] [address]: Kishor Marrufo MD REQ: [id number] RECD: 04/26/19 STATUS: LEYDI DONATO DR: Erasmo Hill MD _ SOURCE: GAS ANTRUM SPDESC: ORDERED: Clotest Procedure Result Reported Site Clotest Final 04/27/19- 2449 ML Clotest Negative * ML - Main Lab . END OF REPORT DEPARTMENT OF PATHOLOGY, [address] [place] [address] Manny Borrego M.D. Director [facility] # [id number] SEE RESULT BELOW Name: FERCHO FRIAS : [address]: Kishor Marrufo MD Acct: [id number] Unit: [id number] AGE: 58 Location: ENDO Re04/26/19 SEX: M Status: REG REF SPEC: [id number] VINH: 04/26/19-[address]: Kishor Marrufo MD REQ: [id number] RECD: 04/26/19-153 STATUS: COMP OTHR DR: Erasmo Hill MD _ SOURCE: GAS ANTRUM SPDESC: ORDERED: Clotest Procedure Result Reported Site Clotest Final 04/27/19- 0759 ML Clotest Negative * ML - Main Lab . END OF REPORT DEPARTMENT OF PATHOLOGY, [address] [place] [address] Manny Borrego M.D. Director [facility] # [id number] 2 Because ethnic data is not always readily [...] 15-29 5 Kidney failure <15 (or dialysis) 3 Critical Result [id number] MARRUFO at: 15:59:30 by:[id number] Read back by:DR MARRUFO 4 Because ethnic data is not always readily [...] 15-29 5 Kidney failure <15 (or dialysis) 5 Standard intensity warfarin therapeutic range: 2.0-3.0 High intensity warfarin therapeutic range: 2.5-3.5 Procedures Date Code Description Status 04/26/2019 09712 EGD+Biopsy Single Or Multiple Completed Medical Devices Description No Information Available Encounters Type Date Location Provider Dx Diagnosis Office Visit 03/31/2019 [facility] K70.31 Alcoholic [facility] Latha Marrufo MD cirrhosis of liver with ascites Office Visit 01/27/2019 [facility] [place] K70.31 Alcoholic [facility] Latha Marrufo MD cirrhosis of liver with ascites K74.69 Other cirrhosis of liver Assessments Date Code Description Provider 04/26/2019 K70.31 Alcoholic cirrhosis of liver with ascites Kishor Marrufo MD 03/31/2019 K70.31 Alcoholic cirrhosis of liver with ascites Kishor Marrufo MD 01/27/2019 K70.31 Alcoholic cirrhosis of liver with ascites Kishor Marrufo MD 01/27/2019 K74.69 Other cirrhosis of liver Kishor Marrufo MD Plan of Treatment 03/31/2019 - Kishor Marrufo MDK70.31 Alcoholic cirrhosis of liver with ascitesNew Orders:EGD, Ordered: 03/31/19Comments:Another long discussion re: cirrhosis, continue all his meds, needs labs, US for HCC, and EGD to look for varices; [place] [facility] use Functional Status Description No Information Available Mental Status Description No Information Available Referrals Description No Information Available
--- OUTSIDE RECORDS SUMMARY | 2019-05-13 12:13 | XMS REPORT ---
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 Catia (current) (current) [place] use [...] 11:00: 00 Neuro impaired Neuro/Emot Resolve 2018-03-27 Caita decision-ma ion d - 13:00:00 [place] addison [...] 10:00:00 [place] deficit: cg 11:00: 00 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/OT: Resolve 2018-12-29 Catia yousif rdination [...] 02-25 17:15:00 [place] sigala device ransfer 14:50: [id number] present 00 Bed transfer PT/OT: Bed Resolve 2018-12-29 Deejay Mobility/Tr deficit: Mobility/T d 02-25 17:15:00 [place] sigala toilet/comm ransfer 14:50: [id number] 00 Bed transfer PT/OT: Bed Resolve 2018-12-29 Deejay Mobility/Tr deficit: Mobility/T d 02-25 17:15:00 [place] sigala shower/tub ransfer 14:50: [id number] 00 Bed knowledge/s PT/OT: Bed Resolve 2018-12-29 Deejay Mobility/Tr kill Mobility/T d 02-25 17:15:00 [place] sigala deficit: pt ransfer 14:50: [id number] 00 Balance/End knowledge/s PT/OT: Resolve 2018-12-29 Deejay yousif kill Balance/En d 02-25 17:15:00 [place] deficit: pt durance 14:50: [id number] 00 Environment knowledge/s PT/OT: Resolve 2018-12-29 Deejay hennessy kill Environmen d 02-25 17:15:00 [place] deficit: pt t 14:50: [id number] 00 Environment environment PT/OT: Resolve 2018-12-29 Deejay hennessy al barriers Environmen d 02-25 17:15:00 [place] t 14:50: [id number] 00 Gait/Locomo gait PT/OT: Resolve 2018-12-29 Deejay ocampo assistive Gait/Locom d 02-25 17:15:00 Garibay problems device otion 14:50: [id number] present 00 Gait/Locomo knowledge/s PT/OT: Resolve 2018-12-29 Deejay ocampo kill Gait/Locom d 02-25 17:15:00 Garibay problems deficit: pt otion 14:50: [id number] 00 Cardio edema Cardiovasc Resolve 2018-05-27 Catia [...] d 2- 10:00:00 [place] deficit: pt 09:50: [id number] 00 Cardio knowledge/s Cardiovasc Resolve 2018-05-27 Vonnie kill ular d 2 10:00:00 [place] deficit: cg 09:50: [id number] 00 Respiratory lung sounds Respirator Resolve 2018-04-17 Vonnie deficit y d 2 09:00:00 [place] 09:50: [id number] 00 Medication oral med Meds Resolve 2018-04-24 [...] d 4-04 09:00:00 [place] deficit: pt 10:00: [id number] 00 Social knowledge/s FEDE: Resolve 2018-2018-05-21 [facility] kill Social d 4-04 10:00:00 [place] deficit - Services 10:00: [id number] pt 00 Social knowledge/s FEDE: Resolve 2018-2018-05-21 [facility] kill Social d 4-04 10:00:00 [place] deficit - Services 10:00: [id number] cg 00 24 Hr Diet nutrition NT: 24Hr Active 2018- Silvana intake Diet -05 Marston deficit 09:50: [id number] 00 24 Hr Diet knowledge/s NT: 24Hr Resolve 2018-05-22 Silvana kill Diet d 4- 09:50:00 [place]ston deficit - 09:50: [id number] pt 00 Nutritional food NT: Resolve 2018-05-22 Silvana Barrier storage/pre Barriers d 05 09:50:00 Marston p deficit 09:50: [id number] Respiratory lung sounds Respirator Resolve 2018-05-27 Vonnie deficit y d 408 10:00:00 [place] 09:10: [id number] 00 Respiratory nebulizer Respirator Resolve 2018-05-27 Vonnie treatment y d 05-25 10:00:00 [place] in home 09:10: [id number] 00 Neuro impaired Neuro/Emot Resolve 2018-06-19 Catia toscano-ma ion d 4 09:00:00 Valelvira addison 10:00: 00 Test/Treatm tests Test/Injec Resolve 2018-06-09 Vonnie ent ordered t/Chele d 4 09:05:00 [place] [id number] Cardio knowledge/s Cardiovasc Resolve 2018-06-06 Catia fletcher [...] present y d 415 09:00:00 [place] 09:00: [id number] 00 Respiratory oxygen Respirator Resolve 2018-06-10 Vonnie treatments y d 4-15 09:00:00 [place] in home 09:00: [id number] 00 Respiratory lung sounds Respirator Resolve 2018-06-06 Vonnie deficit y d 4-15 12:00:00 [place] 09:00: [id number] 00 Endo/Viktor diabetic Endo/Viktor Resolve 2018-06-06 Catia [...] d 4- 09:00:00 [place] deficit: pt 10:35: [id number] 00 24 Hr Diet nutrition NT: 24Hr Unknown Silvana intake Diet 06-08 Mar[place] deficit 10:40: [id number] 00 24 Hr Diet knowledge/s NT: 24Hr Resolve 2018-06-08 Silvana kill Diet d 4-22 10:40:00 [place] deficit - 10:40: [id number] pt 00 Respiratory lung sounds Respirator Resolve 2018-06-10 Vonnie deficit y d 06-09 09:00:00 [place] 09:05: [id number] 00 Musculoskel requires Musculoske Resolve 2018-06-10 Vonnie etal human letal d 06-09 09:00:00 [place] assist to 09:05: [id number] leave home 00 Cardio edema Cardiovasc Resolve [...] d 06-11 10:20:00 [place] deficit: cg 10:00: [id number] 00 Nutrition changing Nutrition Resolve 2018-06-26 Catia weight/appe d 06-12 08:30:00 [place] tite 10:20: 00 Nutrition knowledge/s Nutrition Resolve 2018-06-12 Catia kill d 06-12 10:20:00 [place] deficit: pt 10:20: 00 Cardio edema Cardiovasc Resolve 2018-06-17 Vonnierea wilhelm d 06-15 09:00:00 [place] 09:15: [id number] 00 Cardio pacemaker/I Cardiovasc Resolve 2018-06-17 Vonnierea CINTRON ular d 06-15 09:00:00 [place] 09:15: [id number] 00 Respiratory dyspnea Respirator Resolve 2018-06-17 Vonnie present y d 06-15 09:00:00 [place] 09:15: [id number] 00 Respiratory oxygen Respirator Resolve 2018-06-19 Vonnie treatments y d 06-15 09:00:00 [place] in home 09:15: [id number] 00 Respiratory lung sounds Respirator Resolve 2018-06-17 Vonnie deficit y d 06-15 09:00:00 [place] 09:15: [id number] 00 Nutrition knowledge/s Nutrition Resolve 2018-06-17 Vonnie kill d 06-15 09:00:00 [place] deficit: pt 09:15: [id number] 00 Sensory impaired Sensory Resolve 2018-06-22 Catia [...] NT: 24Hr Unknown Silvana intake Diet 06-18 [place] deficit 15:30: [id number] 00 24 Hr Diet knowledge/s NT: 24Hr Resolve 2018-06-18 Silvana kill Diet d 06-18 15:30:00 [place] deficit - 15:30: [id number] pt 00 Nutrition knowledge/s Nutrition Resolve 2018-06-19 Catia kill d 06-19 09:00:00 [place] deficit: pt 09:00: 00 Safety can be left Safety Resolve 2018-06-26 Catia alone for d 06-19 08:30:00 [place] only short 09:00: periods 00 Medication oral med Meds Resolve 2018-06-19 Catia assistance d 06-19 09:00:00 [place] required 09:00: 00 Cardio edema Cardiovasc Resolve 2018-06-26 Vonnie wilhelm d 06-22 08:30:00 [place] 09:15: [id number] 00 Cardio knowledge/s Cardiovasc Resolve 2018-07-24 Vonnieajith fletcher ular d 06-22 09:00:00 [place] deficit: pt 09:15: [id number] 00 Cardio pacemaker/I Cardiovasc Resolve 2018-06-26 Vonnierea CINTRON ular d 06-22 08:30:00 [place] 09:15: [id number] 00 Nutrition knowledge/s Nutrition Resolve 2018-06-24 Vonnie kill d 06-22 11:00:00 [place] deficit: pt 09:15: [id number] 00 Nutrition knowledge/s Nutrition Resolve 2018-06-24 Vonnie kill d 06-22 11:00:00 [place] deficit: cg 09:15: [id number] 00 Neuro impaired Neuro/Emot Resolve 2018-06-26 Vonnie decision-ma ion d 06-22 08:30:00 [place] addison 09:15: [id number] 00 Neuro knowledge/s Neuro/Emot Resolve 2018-06-22 Vonnie kill ion d 06-22 09:15:00 [place] deficit: pt 09:15: [id number] 00 Neuro knowledge/s Neuro/Emot Resolve 2018-06-24 Vonnie kill ion d 06-23 11:00:00 [place] deficit: pt 09:30: [id number] 00 Social financial FEDE: Active [facility] resource Social 06-23 [place] deficit Services 09:45: [id number] 00 Social knowledge/s FEDE: Resolve 2018-06-23 [facility] kill Social d 06-23 [facility] [id number] pt 00 Respiratory oxygen Respirator Resolve 2018-06-26 [...] Vonnierea wilhelm d 5-13 16:00:00 [place] 09:30: [id number] 00 Respiratory oxygen Respirator Resolve 2018-07-08 Vonnierea sánchez y d 5-13 16:00:00 [place] in home 09:30: [id number] 00 Nutrition knowledge/s Nutrition Resolve 2018-07-01 Vonnie kill d 5-13 10:00:00 [place] deficit: pt 09:30: [id number] 00 Cardio chest pain Cardiovasc Resolve 2018-07-08 Catia wilhelm d 515 16:00:00 [place] 10:00: 00 Cardio pacemaker/I Cardiovasc Resolve 2018-07-08 Catia wilhelm d 15 16:00:00 [place] 10:00: 00 Social knowledge/s FEDE: Resolve 2018-07-08 Catia Services kill Social d -15 11:00:00 [place] deficit - Services 10:00: pt 00 Nutrition knowledge/s Nutrition Resolve 2018-07-08 Vonnie fletcher d -20 16:00:00 [place] deficit: pt 09:15: [id number] 00 Safety structural Safety Resolve 2018-07-23 Roslyn barriers d 07-08 11:15:00 [place] present 11:00: [id number] 00 Safety sanitation Safety Resolve 2018-07-23 Roslyn hazards d 07-08 11:15:00 [place] present 11:00: [id number] 00 Safety can be left Safety Resolve 2018-07-23 Roslyn alone for d 07-08 11:15:00 [place] only short 11:00: [id number] periods 00 Neuro impaired Neuro/Emot Active Catia antunez 07-08 Sherman addison 16:00: 00 Medication oral med Meds Resolve 2018-07-10 Catia garcia d 07-08 09:08:00 [place] required 16:00: 00 Medication injectable Meds Unknown Catia med 07-08 [place] assistance 16:00: required 00 Cardio edema Cardiovasc Resolve 2018-07-23 Vonnie ular d 07-10 11:15:00 [place] 09:08: [id number] 00 Cardio pacemaker/I Cardiovasc Resolve 2018-07-23 Vonnie CD ular d 07-10 11:15:00 [place] 09:08: [id number] 00 Respiratory oxygen Respirator Resolve 2018-08-14 Vonnie treatments y d 07-10 09:00:00 [place] in home 09:08: [id number] 00 Respiratory lung sounds Respirator Resolve 2018-07-24 Vonnie deficit y d 07-10 09:00:00 [place] 09:08: [id number] 00 Nutrition knowledge/s Nutrition Resolve 2018-07-23 Vonnie kill d 07-10 11:15:00 [place] deficit: pt 09:08: [id number] 00 Neuro knowledge/s Neuro/Emot Resolve 2018-07-23 Vonnie kill ion d 07-10 11:15:00 [place] deficit: pt 09:08: [id number] 00 Social knowledge/s FEDE: Resolve 2018-09-29 Vonnie Services kill Social d 07-10 10:00:00 [place] deficit - Services 09:08: [id number] pt 00 Neuro memory Neuro/Emot Resolve 2018-07-23 Vonnie deficit ion d 07-14 11:15:00 [place] needing 09:18: [id number] supervision 00 Pain frequent Pain Mgmt Active Vonnie pain 07-17 [place] 09:40: [id number] 00 Nutrition knowledge/s Nutrition Resolve 2018-07-23 Vonnie kill d 07-17 11:15:00 [place] deficit: cg 09:40: [id number] 00 Medication injectable Meds Unknown Ovnnie med 07-17 [place] assistance 09:40: [id number] required 00 Respiratory bloody Respirator Resolve 2018-07-27 Vonnie sputum y d 07-21 09:00:00 [place] 09:07: [id number] 00 Respiratory dyspnea Respirator Resolve 2018-07-27 Catia [...] Resolve 2018-2018-07-31 Vonnie kill d 07-27 09:00:00 [place] deficit: pt 09:00: [id number] 00 Nutrition nutritional Nutrition Resolve 2018-2018-07-31 Vonnie restriction d 6-10 09:00:00 [place] s 09:00: [id number] 00 Cardio pacemaker/I Cardiovasc Resolve 2018-2018-07-31 Catia CINTRON ular d 6-14 09:00:00 [place] 09:00: 00 Respiratory CPAP Respirator Resolve 2018-07-31 Catia treatments y d 6-14 09:00:00 [place] in home 09:00: 00 Medication oral med Meds Resolve 2018-08-03 Catia assistance d 6-14 09:00:00 [place] required 09:00: 00 Nutrition knowledge/s Nutrition Unknown Roslyn kill 6-14 [place] deficit: pt 10:00: [id number] 00 Nutrition knowledge/s Nutrition Resolve 2018-08-07 Roslyn kill d 6-14 10:00:00 [place] deficit: cg 10:00: [id number] 00 Nutrition nutritional Nutrition Unknown Roslyn restriction 6-14 [place] s 10:00: [id number] 00 Safety can be left Safety Resolve 2018-08-07 Roslyn alone for d 6-14 10:00:00 [place] only short 10:00: [id number] periods 00 Nutrition knowledge/s Nutrition Unknown Catia kill 6-14 [place] deficit: pt 10:30: 00 Nutrition nutritional Nutrition Unknown Catia restriction 6-14 Vallely s 10:30: 00 Respiratory CPAP Respirator Resolve 2018-08-07 Vonnie treatments y d 6-17 10:00:00 [place] in home 09:00: [id number] 00 Nutrition knowledge/s Nutrition Resolve 2018-08-07 Vonnie kill d 6-17 10:00:00 [place] deficit: pt 09:00: [id number] 00 Nutrition nutritional Nutrition Resolve 2018-08-07 Vonnie restriction d 6-17 10:00:00 [place] s 09:00: [id number] 00 Cardio pacemaker/I Cardiovasc Resolve 2018-08-10 Catia [...] factor d 08-14 09:00:00 Thomas present 09:00: [id number] 00 Safety fire risk Safety Resolve 2018-08-28 Jennifer Baum present d 08-14 09:00:00 Thomas 09:00: [id number] 00 Safety risk for Safety Resolve 2018-2018-08-28 [facility] d 08-14 09:00:00 Thomas tion 09:00: [id number] 00 Medication oral med Meds Resolve 2018-08-14 [...] 00 Safety risk for Safety Unknown [facility] 08-28 [facility] tion 09:45: [id number] 00 Cardio pacemaker/I Cardiovasc Resolve 2018-09-11 Catia [...] Vonnie wilhelm d 09-18 10:20:00 [place] 10:00: [id number] 00 Safety risk for Safety Resolve 2018-09-18 Vonnie hospitaliza d 09-18 10:00:00 [place] tion 10:00: [id number] 00 Cardio chest pain Cardiovasc Resolve 2018-09-25 Vonnierea mendiola 09-25 10:10:00 [place] 10:10: [id number] 00 Cardio knowledge/s Cardiovasc Resolve 2018-2018-09-25 Vonnierea wilhelm d 09-25 10:10:00 [place] deficit: cg 10:10: [id number] 00 Neuro memory Neuro/Emot Resolve 2018-10-23 Vonnie deficit ion d 09-25 09:00:00 [place] needing 10:10: [id number] supervision 00 Safety risk for Safety Resolve 2018-09-25 Vonnie hospitaliza d 09-25 10:10:00 [place] tion 10:10: [id number] 00 Neuro depressive Neuro/Emot Resolve 2018-10-23 Catia feelings ion d 10-02 09:00:00 [place] present 09:00: 00 Safety risk for Safety Resolve 2018 Catia hospitaliza d 10-02 09:00:00 [place] tion 09:00: 00 Safety risk for Safety Resolve 2018-10-09 Vonnie hospitaliza d 10-06 10:20:00 [place] tion 11:40: [id number] 00 Elimination nausea/vomi Eliminatio Resolve 2018-10-16 Catia [...] FEDE: Active [facility] kill Social 10-28 [facility] deficit - Services 16:15: [id number] pt 00 Cardio pacemaker/I Cardiovasc Resolve 2018-10-30 [...] hospitaliza d 1- 09:00:00 [place] tion 10:15: [id number] 00 Safety sanitation Safety Resolve 2018-022018-12-30 Janet hazards d 105 10:00:00 Chaudhari present 15:10: [id number] 00 Safety fall risk Safety Resolve 2018-022018-12-24 Janet factor d 105 09:00:00 Chaudhari present 15:10: [id number] 00 Respiratory oxygen Respirator Resolve 2018-022018-12-30 Catia [...] 09:00: 00 Nutrition nutritional Nutrition Resolve 2018-022019-01-07 Catai restriction d - 09:00:00 [place]lely s 09:00: 00 Nutrition nutritional Nutrition Resolve 2018-022019-01-22 Roslyn restriction d 03-13 08:00:00 [place] s 15:30: [id number] 00 Respiratory oxygen Respirator Resolve 2018-022019-01-15 Catia [...] 2018-02 Roslyn restriction 2-20 [place]stein s 10:15: [id number] 00 Cardio pacemaker/I Cardiovasc Resolve 2018-022019-02-19 Catia [...] 09:00:00 [place] 09:00: 00 Cardio pacemaker/I Cardiovasc Active 2019- Catai wilhelm 3- [place] 09:00: 00 Respiratory oxygen Respirator Active 2019-0 Catia treatments y 3-05 [place]le[place] in home 09:00: 00 Elimination nausea/vomi Eliminatio Resolve 2019-04-29 Catia longo d 3-05 09:00:00 [place] 09:00: 00 Neuro depressive Neuro/Emot Active 2019-0 Catia feelings ion 3-05 [place] present 09:00: 00 Cardio pacemaker/I Cardiovasc Resolve 2019-2019-04-29 Catia wilhelm d 3-12 09:00:00 [place] 09:00: 00 Respiratory dyspnea Respirator Active 2019-0 Catia present y 3-12 [place] 09:00: 00 Respiratory oxygen Respirator Active 2019- Catia treatments y 3-12 [place] in home 09:00: 00 Neuro memory Neuro/Emot Active 2019-0 Catia deficit ion 3-12 [place] needing 09:00: supervision 00 Safety can be left Safety Active 2019-0 Catia alone for 3-12 [place] only short 09:00: periods 00 Medication oral med Meds Active 2019-0 Catia assistance -12 [place] required 09:00: 00 Medication potential Meds Active 2019-0 Catia clinically 3-12 [place]le[place] significant 09:00: medication 00 issue Allergies, Adverse Reactions, Alerts Allergy Allergy Status Severity Reaction(s) Onset Inactive Treating Comments Name Type Date Date Clinician shellfish Unknown Active Unknown Reaction 2017-05 Massiel Unknown -11 (Maria G) Shaun [id number] IVP DYE Unknown Active Unknown Reaction 2017-05 Massiel Unknown -11 (Maria G) Shaun [id number] Medications Ordered Filled Start Stop Current Ordering [...] Unknown Unknown 300 mg 300 mg 02-19 Erasmo ANDERSON capsule capsule cetirizine cetirizine No Midura Unknown Unknown 10 mg 10 mg 02-19 Erasmo ANDERSON tablet tablet spironolact spironolact 2018- No Midura Unknown Unknown one 25 mg one 25 mg 02-19 Erasmo ANDERSON tablet tablet Symbicort Symbicort No Midura Unknown [...] Unknown Unknown 20 gram/30 20 gram/30 02-19 02 ,Erasmo mL oral mL oral solution solution potassium potassium 2018- No Midura Unknown Unknown chloride ER chloride ER 02-19 MD,Erasmo 20 mEq 20 mEq tablet,exte tablet,exte nded nded release(par release(par t/cryst) t/cryst) thiamine thiamine No Midura Unknown Unknown HCl HCl 02-19 Erasmo ANDERSON (vitamin (vitamin B1) 100 mg B1) 100 [...] No Midura Unknown Unknown Maximum Maximum - Erasmo ANDERSON Strength Strength 400 mg-400 400 mg-400 mg-40 mg/5 mg-40 mg/5 mL oral mL oral suspension suspension Colace 100 Colace 100 2018- No Midura Unknown Unknown mg capsule mg capsule 02-19 Erasmo ANDERSON albuterol albuterol 2018- No Midura Unknown Unknown sulfate HFA sulfate HFA 02-19 Erasmo ANDERSON 90 90 mcg/actuati mcg/actuati on aerosol on aerosol inhaler inhaler Nitrostat Nitrostat No Midura Unknown Unknown 0.4 mg 0.4 mg 02-19 Erasmo ANDERSON sublingual sublingual tablet tablet Tylenol [...] Unknown Unknown oxide 400 oxide 400 03-18 ,Erasmo mg (241.3 mg (241.3 mg mg magnesium) magnesium) tablet tablet lactulose lactulose No Midura Unknown Unknown 20 gram/30 20 gram/30 2- Erasmo ANDERSON mL oral mL oral solution [...] No Midura Unknown Unknown ne ne 05-06 ,Erasmo acetonide acetonide 0.1 % 0.1 % topical topical cream cream Lasix 20 mg Lasix 20 mg 2018- No Maghaydah Unknown Unknown tablet tablet 05-07 ,Qutaybe h Lasix 20 mg Lasix 20 mg 2018- No Maghaydah Unknown Unknown tablet tablet 05-07 ,Qutaybe h furosemide furosemide 2018- Maghaydah Unknown Unknown 20 mg 20 mg 05-09 MD,Qutaybe tablet tablet h Lasix 20 mg Lasix 20 mg 2018- No Maghaydah Unknown Unknown tablet tablet 05-08 MD,Qutaybe h ferrous ferrous 2018- No Midura Unknown Unknown sulfate 325 sulfate 325 05-14 MD,Erasmo mg (65 mg mg (65 mg iron) iron) tablet,belkys tablet,belkys yed release yed release furosemide furosemide 2018- No Cely Unknown Unknown 80 mg 80 mg 05-15 MD,Magdale tablet tablet na furosemide furosemide 2018- Midura Unknown Unknown 80 mg 80 mg 05-14 MD,Erasmo tablet tablet ferrous ferrous 2018- No Midura Unknown Unknown sulfate 325 sulfate 325 05-14 MD,Erasmo mg (65 mg mg (65 mg iron) iron) tablet,belkys tablet,belkys yed release yed release Oxygen Oxygen 2018- No Midura Unknown Unknown 05-15 MD,Erasmo zinc zinc 2018- No Midura Unknown Unknown sulfate 220 sulfate 220 05-14 MD,Erasmo mg tablet mg tablet furosemide furosemide 2018- No Maghaydah Unknown Unknown 40 mg 40 mg 05-14 ,Jenisetaybe tablet tablet h Lasix 40 mg Lasix 40 mg Maghaydah Unknown Unknown tablet tablet 05-27 ,Meg man bumetanide bumetanide 2018- No Maghaydah Unknown Unknown 1 mg tablet 1 mg tablet 05-28 ,Qutaybe h bumetanide bumetanide 2018- No Maghaydah Unknown Unknown 1 mg tablet 1 mg tablet 06-01 ,Qutaybe h bumetanide bumetanide 2018- No Maghaydah Unknown Unknown 1 mg tablet 1 mg tablet 05-29 ,Meg man torsemide torsemide 2018- No Midura Unknown Unknown 20 mg 20 mg 06-05 MD,Erasmo tablet tablet patiromer patiromer 2018- No Kardon Unknown Unknown calcium calcium 06-05 ,Driss sorbitex sorbitex 8.4 gram 8.4 gram oral [...] Maghaydah Unknown Unknown 20 mg 20 mg 06-14 MD,Qutaybe tablet tablet h ferrous ferrous 2018- No Midura Unknown Unknown sulfate 325 sulfate 325 06-17 Erasmo ANDERSON mg (65 mg mg (65 mg iron) iron) tablet,belkys tablet,belkys yed release yed release Colace 100 Colace 100 2018- No Midura Unknown Unknown mg capsule mg capsule 06-18- ,Erasmo Colace 100 Colace 100 No Midura Unknown Unknown mg capsule mg capsule 06-18 Erasmo ANDERSON torsemide torsemide 2018- No Maghaydah Unknown Unknown 20 mg 20 mg 06-23 ,Qutaybe tablet tablet h torsemide torsemide 2018- No Maghaydah Unknown Unknown 20 mg 20 mg 06-26 ,Qutaybe tablet tablet h torsemide torsemide 2018- No Maghaydah Unknown Unknown 20 mg 20 mg 06-29 MD,Qutaybe tablet tablet h Nasonex 50 Nasonex 50 No Maghaydah Unknown Unknown mcg/actuati mcg/actuati 06-25 MD,Qutaybe on [place] h Cipro 500 Cipro 500 2018- No Midura Unknown Unknown mg tablet mg tablet 07-03 Erasmo ANDERSON torsemide torsemide 2018- No Maghaydah Unknown Unknown 20 mg 20 mg 07-21 MD,Qutaybe tablet tablet h metOLazone metOLazone 2018- No Maghaydah Unknown Unknown 2.5 mg 2.5 mg 07-21 06-15 MD,Qutaybe tablet tablet h mometasone mometasone No Midura Unknown Unknown 0.1 % 0.1 % 08-04 ,Erasmo topical topical cream cream torsemide torsemide 2019- No Maghaydah Unknown Unknown 10 mg 10 mg 10-07 03- MD,Qutaybe tablet tablet h clonazePAM clonazePAM 2018- No Midura Unknown Unknown 0.5 mg 0.5 mg 10-27 Erasmo ANDERSON tablet tablet Oxygen Oxygen No Midura Unknown Unknown 10-30 Erasmo ANDERSON ferrous ferrous No Midura Unknown Unknown sulfate 325 sulfate 325 10-30 ,Erasmo mg (65 mg mg (65 mg iron) iron) tablet,belkys tablet,belkys yed release yed release Xarelto 20 Xarelto 20 No L[place]g Unknown Unknown mg tablet mg tablet 11-13 MD,Kishor predniSONE predniSONE 2018- No Maghaydah Unknown Unknown 20 mg 20 mg 11-14 MD,Qutaybe tablet tablet h Banophen 25 Banophen 25 2018- No Maghaydah Unknown Unknown mg capsule mg capsule 11-14 MD,Qutaybe h Cipro 500 Cipro 500 2018- No Midura Unknown Unknown mg tablet mg tablet 11-13- Erasmo ANDERSON glimepiride glimepiride 2018-02- No Midura Unknown Unknown 2 mg tablet 2 mg tablet -12 Erasmo ANDERSON metOLazone metOLazone 2018-02- No Maghaydah Unknown Unknown 2.5 mg 2.5 mg 02-23 MD,Qutaybe tablet tablet h metOLazone metOLazone 2018-02- No Maghaydah Unknown Unknown 2.5 mg 2.5 mg 03-01 MD,Qutaybe tablet tablet h azithromyci azithromyci 2018-02- No Midura Unknown Unknown n 250 mg n 250 mg 02-28 MD,Erasmo tablet tablet azithromyci azithromyci 2018-02- No Midura Unknown Unknown n 250 mg n 250 mg 02-2314 MD,Erasmo tablet tablet metOLazone metOLazone 2018-02- No [...] Maghaydah Unknown Unknown 10 mg 10 mg 04-27 MD,Qutaybe tablet tablet h torsemide torsemide Yes Maghaydah Unknown Unknown 20 mg 20 mg 04-27 MD,Qutaybe tablet tablet h Vital Signs Vital Name Observation Time Observation Value Comments SYSTOLIC mm[Hg] 2019-04-29 18:10:50 130 mm[Hg] mm[Hg] Method: Sit SYSTOLIC mm[Hg] 2019-04-14 18:10:35 114 mm[Hg] mm[Hg] Method: Stand DIASTOLIC mm[Hg] 2019-04-29 18:10:50 70 mm[Hg] mm[Hg] Method: Sit DIASTOLIC mm[Hg] 2019-04-14 18:10:35 70 mm[Hg] mm[Hg] Method: Stand PULSE 2019-04-29 18:10:50 88 /min /min RESP RATE 2019-04-29 18:10:50 16 /min /min TEMP 2019-04-29 18:10:50 97.4 [degF] Procedures This patient has no known procedures. Results This patient has no known results.
--- OUTSIDE RECORDS SUMMARY | 2019-05-13 12:13 | XMS REPORT ---
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 Catia (current) (current) [place] use [...] 11:00: 00 Musculoskel knowledge/s Musculoske Resolve 2018-03-13 Catai etal kill letal d 1-03 10:00:00 [place] deficit: pt 11:00: 00 Musculoskel knowledge/s Musculoske Resolve 2018-03-13 Catia etal kill letal d 1-03 10:00:00 [place] deficit: cg 11:00: 00 Balance/End balance/emergency medical services coordinator PT/OT: Resolve 2018-12-29 Catia yousif rdination [...] 02-25 17:15:00 [place] sigala device ransfer 14:50: [id number] present 00 Bed transfer PT/OT: Bed Resolve 2018-12-29 Deejay Mobility/Tr deficit: Mobility/T d 02-25 17:15:00 [place] sigala toilet/comm ransfer 14:50: [id number] ode 00 Bed transfer PT/OT: Bed Resolve 2018-12-29 Deejay Mobility/Tr deficit: Mobility/T d 02-25 17:15:00 [place] sigala shower/tub ransfer 14:50: [id number] 00 Bed knowledge/s PT/OT: Bed Resolve 2018-12-29 Deejay Mobility/Tr kill Mobility/T d 02-25 17:15:00 [place] sigala deficit: pt ransfer 14:50: [id number] 00 Balance/End knowledge/s PT/OT: Resolve 2018-12-29 Deejay yousif kill Balance/En d 02-25 17:15:00 [place] deficit: pt durance 14:50: [id number] 00 Environment knowledge/s PT/OT: Resolve 2018-12-29 Deejay hennessy kill Environmen d 02-25 17:15:00 [place] deficit: pt t 14:50: [id number] 00 Environment environment PT/OT: Resolve 2018-12-29 Deejay hennessy al barriers Environmen d 02-25 17:15:00 [place] t 14:50: [id number] 00 Gait/Locomo gait PT/OT: Resolve 2018-12-29 Deejay ocampo assistive Gait/Locom d 02-25 17:15:00 Garibay problems device otion 14:50: [id number] present 00 Gait/Locomo knowledge/s PT/OT: Resolve 2018-12-29 Deejay ocampo kill Gait/Locom d 02-25 17:15:00 Garibay problems deficit: pt otion 14:50: [id number] 00 Cardio edema Cardiovasc Resolve 2018-05-27 Catia [...] d 2- 10:00:00 [place] deficit: pt 09:50: [id number] 00 Cardio knowledge/s Cardiovasc Resolve 2018-05-27 Vonnie kill ular d 2 10:00:00 [place] deficit: cg 09:50: [id number] 00 Respiratory lung sounds Respirator Resolve 2018-04-17 Vonnie deficit y d 2 09:00:00 [place] 09:50: [id number] 00 Medication oral med Meds Resolve 2018-04-24 [...] d 4-04 09:00:00 [place] deficit: pt 10:00: [id number] 00 Social knowledge/s FEDE: Resolve 2018-2018-05-21 [facility] kill Social d 4-04 10:00:00 [place] deficit - Services 10:00: [id number] pt 00 Social knowledge/s FEDE: Resolve 2018-2018-05-21 [facility] kill Social d 4-04 10:00:00 [place] deficit - Services 10:00: [id number] cg 00 24 Hr Diet nutrition NT: 24Hr Active 2018- Silvana intake Diet -05 [place] deficit 09:50: [id number] 00 24 Hr Diet knowledge/s NT: 24Hr Resolve 2018-05-22 Silvana kill Diet d 4- 09:50:00 [place] deficit - 09:50: [id number] pt 00 Nutritional food NT: Resolve 2018-05-22 Silvana Barrier storage/pre Barriers d 05 09:50:00 [place] p deficit 09:50: [id number] 00 Respiratory lung sounds Respirator Resolve 2018-05-27 Vonnie deficit y d 408 10:00:00 [place] 09:10: [id number] 00 Respiratory nebulizer Respirator Resolve 2018-05-27 Vonnie treatment y d 05-25 10:00:00 [place] in home 09:10: [id number] 00 Neuro impaired Neuro/Emot Resolve 2018-06-19 Catia toscano-ma ion d 4 09:00:00 Valelvira addison 10:00: 00 Test/Treatm tests Test/Injec Resolve 2018-06-09 Vonnie ent ordered t/Chele d 4 09:05:00 [place] [id number] Cardio knowledge/s Cardiovasc Resolve 2018-06-06 Catia fletcher [...] present y d 415 09:00:00 [place] 09:00: [id number] 00 Respiratory oxygen Respirator Resolve 2018-06-10 Vonnie treatments y d 4-15 09:00:00 [place] in home 09:00: [id number] 00 Respiratory lung sounds Respirator Resolve 2018-06-06 Vonnie deficit y d 4-15 12:00:00 [place] 09:00: [id number] 00 Endo/Viktor diabetic Endo/Viktor Resolve 2018-06-06 Catia [...] d 4- 09:00:00 [place] deficit: pt 10:35: [id number] 00 24 Hr Diet nutrition NT: 24Hr Unknown Silvana intake Diet 06-08 [place] deficit 10:40: [id number] 00 24 Hr Diet knowledge/s NT: 24Hr Resolve 2018-06-08 Silvana kill Diet d 4-22 10:40:00 [place] deficit - 10:40: [id number] pt 00 Respiratory lung sounds Respirator Resolve 2018-06-10 Vonnie deficit y d 06-09 09:00:00 [place] 09:05: [id number] 00 Musculoskel requires Musculoske Resolve 2018-06-10 Vonnie etal human letal d 06-09 09:00:00 [place] assist to 09:05: [id number] leave home 00 Cardio edema Cardiovasc Resolve [...] d 06-11 10:20:00 [place] deficit: cg 10:00: [id number] 00 Nutrition changing Nutrition Resolve 2018-06-26 Catia weight/appe d 06-12 08:30:00 [place] tite 10:20: 00 Nutrition knowledge/s Nutrition Resolve 2018-06-12 Catia kill d 06-12 10:20:00 [place] deficit: pt 10:20: 00 Cardio edema Cardiovasc Resolve 2018-06-17 Vonnierea wilhelm d 06-15 09:00:00 [place] 09:15: [id number] 00 Cardio pacemaker/I Cardiovasc Resolve 2018-06-17 Vonnierea CINTRON ular d 06-15 09:00:00 [place] 09:15: [id number] 00 Respiratory dyspnea Respirator Resolve 2018-06-17 Vonnie present y d 06-15 09:00:00 [place] 09:15: [id number] 00 Respiratory oxygen Respirator Resolve 2018-06-19 Vonnie treatments y d 06-15 09:00:00 [place] in home 09:15: [id number] 00 Respiratory lung sounds Respirator Resolve 2018-06-17 Vonnie deficit y d 06-15 09:00:00 [place] 09:15: [id number] 00 Nutrition knowledge/s Nutrition Resolve 2018-06-17 Vonnie kill d 06-15 09:00:00 [place] deficit: pt 09:15: [id number] 00 Sensory impaired Sensory Resolve 2018-06-22 Catia [...] NT: 24Hr Unknown Silvana intake Diet 06-18 [place] deficit 15:30: [id number] 00 24 Hr Diet knowledge/s NT: 24Hr Resolve 2018-06-18 Silvana kill Diet d 06-18 15:30:00 [place] deficit - 15:30: [id number] pt 00 Nutrition knowledge/s Nutrition Resolve 2018-06-19 Catia kill d 06-19 09:00:00 [place] deficit: pt 09:00: 00 Safety can be left Safety Resolve 2018-06-26 Catia alone for d 06-19 08:30:00 [place] only short 09:00: periods 00 Medication oral med Meds Resolve 2018-06-19 Catia assistance d 06-19 09:00:00 [place] required 09:00: 00 Cardio edema Cardiovasc Resolve 2018-06-26 Vonnie wilhelm d 06-22 08:30:00 [place] 09:15: [id number] 00 Cardio knowledge/s Cardiovasc Resolve 2018-07-24 Vonnieajith fletcher ular d 06-22 09:00:00 [place] deficit: pt 09:15: [id number] 00 Cardio pacemaker/I Cardiovasc Resolve 2018-06-26 Vonnierea CINTRON ular d 06-22 08:30:00 [place] 09:15: [id number] 00 Nutrition knowledge/s Nutrition Resolve 2018-06-24 Vonnie kill d 06-22 11:00:00 [place] deficit: pt 09:15: [id number] 00 Nutrition knowledge/s Nutrition Resolve 2018-06-24 Vonnie kill d 06-22 11:00:00 [place] deficit: cg 09:15: [id number] 00 Neuro impaired Neuro/Emot Resolve 2018-06-26 Vonnie decision-ma ion d 06-22 08:30:00 [place] addison 09:15: [id number] 00 Neuro knowledge/s Neuro/Emot Resolve 2018-06-22 Vonnie kill ion d 06-22 09:15:00 [place] deficit: pt 09:15: [id number] 00 Neuro knowledge/s Neuro/Emot Resolve 2018-06-24 Vonnie kill ion d 06-23 11:00:00 [place] deficit: pt 09:30: [id number] 00 Social financial FEDE: Active [facility] resource Social 06-23 [place] deficit Services 09:45: [id number] 00 Social knowledge/s FEDE: Resolve 2018-06-23 [facility] kill Social d 06-23 09:45:00 [facility] 09[facility] [id number] pt 00 Respiratory oxygen Respirator Resolve 2018-06-26 [...] Vonnierea wilhelm d 5-13 16:00:00 [place] 09:30: [id number] 00 Respiratory oxygen Respirator Resolve 2018-07-08 Vonnierea sánchez y d 5-13 16:00:00 [place] in home 09:30: [id number] 00 Nutrition knowledge/s Nutrition Resolve 2018-07-01 Vonnie kill d 5-13 10:00:00 [place] deficit: pt 09:30: [id number] 00 Cardio chest pain Cardiovasc Resolve 2018-07-08 Catia wilhelm d 515 16:00:00 [place] 10:00: 00 Cardio pacemaker/I Cardiovasc Resolve 2018-07-08 Catia wilhelm d 15 16:00:00 [place] 10:00: 00 Social knowledge/s FEDE: Resolve 2018-07-08 Catia Services kill Social d -15 11:00:00 [place] deficit - Services 10:00: pt 00 Nutrition knowledge/s Nutrition Resolve 2018-07-08 Vonnie fletcher d -20 16:00:00 [place] deficit: pt 09:15: [id number] 00 Safety structural Safety Resolve 2018-07-23 Roslyn barriers d 07-08 11:15:00 [place] present 11:00: [id number] 00 Safety sanitation Safety Resolve 2018-07-23 [place] hazards d 07-08 11:15:00 [place] present 11:00: [id number] 00 Safety can be left Safety Resolve 2018-07-23 Roslyn alone for d 07-08 11:15:00 [place] only short 11:00: [id number] periods 00 Neuro impaired Neuro/Emot Active Catia antunez 07-08 Sherman addison 16:00: 00 Medication oral med Meds Resolve 2018-07-10 Catia garcia d 07-08 09:08:00 [place] required 16:00: 00 Medication injectable Meds Unknown Catia med 07-08 [place] assistance 16:00: required 00 Cardio edema Cardiovasc Resolve 2018-07-23 Vonnie ular d 07-10 11:15:00 [place] 09:08: [id number] 00 Cardio pacemaker/I Cardiovasc Resolve 2018-07-23 Vonnie CD ular d 07-10 11:15:00 [place] 09:08: [id number] 00 Respiratory oxygen Respirator Resolve 2018-08-14 Vonnie treatments y d 07-10 09:00:00 [place] in home 09:08: [id number] 00 Respiratory lung sounds Respirator Resolve 2018-07-24 Vonnie deficit y d 07-10 09:00:00 [place] 09:08: [id number] 00 Nutrition knowledge/s Nutrition Resolve 2018-07-23 Vonnie kill d 07-10 11:15:00 [place] deficit: pt 09:08: [id number] 00 Neuro knowledge/s Neuro/Emot Resolve 2018-07-23 Vonnie kill ion d 07-10 11:15:00 [place] deficit: pt 09:08: [id number] 00 Social knowledge/s FEDE: Resolve 2018-09-29 [facility] Services kill Social d 07-10 10:00:00 [place] deficit - Services 09:08: [id number] pt 00 Neuro memory Neuro/Emot Resolve 2018-07-23 Vonnie deficit ion d 07-14 11:15:00 [place] needing 09:18: [id number] supervision 00 Pain frequent Pain Mgmt Active Vonnie pain 07-17 [place] 09:40: [id number] 00 Nutrition knowledge/s Nutrition Resolve 2018-07-23 Vonnie kill d 07-17 11:15:00 [place] deficit: cg 09:40: [id number] 00 Medication injectable Meds Unknown Vonnie med 07-17 [place] assistance 09:40: [id number] required 00 Respiratory bloody Respirator Resolve 2018-07-27 Vonnie sputum y d 07-21 09:00:00 [place] 09:07: [id number] 00 Respiratory dyspnea Respirator Resolve 2018-07-27 Catia [...] d 07-27 09:00:00 [place] deficit: pt 09:00: [id number] 00 Nutrition nutritional Nutrition Resolve 2018-2018-07-31 Vonnie restriction d 6-10 09:00:00 [place] s 09:00: [id number] 00 Cardio pacemaker/I Cardiovasc Resolve 2018-2018-07-31 Catia CINTRON ular d 6-14 09:00:00 [place] 09:00: 00 Respiratory CPAP Respirator Resolve 2018-07-31 Catia treatments y d 6-14 09:00:00 [place] in home 09:00: 00 Medication oral med Meds Resolve 2018-08-03 Catia assistance d 6-14 09:00:00 [place] required 09:00: 00 Nutrition knowledge/s Nutrition Unknown Roslyn kill 6-14 [place] deficit: pt 10:00: [id number] 00 Nutrition knowledge/s Nutrition Resolve 2018-08-07 [place] kill d 6-14 10:00:00 [place] deficit: cg 10:00: [id number] 00 Nutrition nutritional Nutrition Unknown [place] restriction 6-14 [place] s 10:00: [id number] 00 Safety can be left Safety Resolve 2018-08-07 [place] alone for d 6-14 10:00:00 [place] only short 10:00: [id number] periods 00 Nutrition knowledge/s Nutrition Unknown Catia kill 6-14 [place] deficit: pt 10:30: 00 Nutrition nutritional Nutrition Unknown Catia restriction 6-14 [place] s 10:30: 00 Respiratory CPAP Respirator Resolve 2018-08-07 Vonnie treatments y d 6-17 10:00:00 [place] in home 09:00: [id number] 00 Nutrition knowledge/s Nutrition Resolve 2018-08-07 Vonnie kill d 6-17 10:00:00 [place] deficit: pt 09:00: [id number] 00 Nutrition nutritional Nutrition Resolve 2018-08-07 Vonnie restriction d 6-17 10:00:00 [place] s 09:00: [id number] 00 Cardio pacemaker/I Cardiovasc Resolve 2018-08-10 Catia [...] factor d 08-14 09:00:00 Thomas present 09:00: [id number] 00 Safety fire risk Safety Resolve 2018-08-28 Jennifer Baum present d 08-14 09:00:00 Thomas 09:00: [id number] 00 Safety risk for Safety Resolve 2018-2018-08-28 [facility] d 08-14 09:00:00 Thomas tion 09:00: [id number] 00 Medication oral med Meds Resolve 2018-08-14 [...] 00 Safety risk for Safety Unknown [facility] 08[facility]28 [facility] tion 09:45: [id number] 00 Cardio pacemaker/I Cardiovasc Resolve 2018-09-11 Catia [...] Vonnie wilhelm d 09-18 10:20:00 [place] 10:00: [id number] 00 Safety risk for Safety Resolve 2018-09-18 Vonnie hospitaliza d 09-18 10:00:00 [place] tion 10:00: [id number] 00 Cardio chest pain Cardiovasc Resolve 2018-09-25 Vonnierea mendiola 09-25 10:10:00 [place] 10:10: [id number] 00 Cardio knowledge/s Cardiovasc Resolve 2018-2018-09-25 Vonnierea wilhelm d 09-25 10:10:00 [place] deficit: cg 10:10: [id number] 00 Neuro memory Neuro/Emot Resolve 2018-10-23 Vonnie deficit ion d 09-25 09:00:00 [place] needing 10:10: [id number] supervision 00 Safety risk for Safety Resolve 2018-09-25 Vonnie hospitaliza d 09-25 10:10:00 [place] tion 10:10: [id number] 00 Neuro depressive Neuro/Emot Resolve 2018-10-23 Catia feelings ion d 10-02 09:00:00 [place] present 09:00: 00 Safety risk for Safety Resolve 2018 Catia hospitaliza d 10-02 09:00:00 [place] tion 09:00: 00 Safety risk for Safety Resolve 2018-10-09 Vonnie hospitaliza d 10-06 10:20:00 [place] tion 11:40: [id number] 00 Elimination nausea/vomi Eliminatio Resolve 2018-10-16 Catia [...] FEDE: Active [facility] kill Social 10-28 [facility] deficit - Services 16:15: [id number] pt 00 Cardio pacemaker/I Cardiovasc Resolve 2018-10-30 [...] 13:00: 00 Respiratory CPAP Respirator Resolve 2018-022018-11-20 Caita treatments y d 0-04 09:00:00 [place] in [...] hospitaliza d 1- 09:00:00 [place] tion 10:15: [id number] 00 Safety sanitation Safety Resolve 2018-022018-12-30 Janet hazards d 105 10:00:00 Chaudhari present 15:10: [id number] 00 Safety fall risk Safety Resolve 2018-022018-12-24 Janet factor d 105 09:00:00 Chaudhari present 15:10: [id number] 00 Respiratory oxygen Respirator Resolve 2018-022018-12-30 Catia [...] restriction d 03-13 08:00:00 [place] s 15:30: [id number] 00 Respiratory oxygen Respirator Resolve 2018-022019-01-15 Catia [...] 2018-02 Roslyn restriction 2-20 [place] s 10:15: [id number] 00 Cardio pacemaker/I Cardiovasc Resolve 2018-022019-02-19 Catia [...] 09:00: 00 Cardio pacemaker/I Cardiovasc Active 2019- Catia wilhelm 3- [place] 09:00: 00 [...] 2017-05 Massiel Unknown -11 (Maria G) Shaun [id number] IVP DYE Unknown Active Unknown Reaction 2017-05 Massiel Unknown -11 (Maria G) Shaun [id number] Medications Ordered Filled Start Stop Current Ordering [...] No Midura Unknown Unknown succinate succinate 02-19 Eramso ANDEROSN ER 25 mg ER 25 mg tablet,exte [...] Unknown Unknown mcg/actuati mcg/actuati 06-25 MD,Qutaybe on [place] Cipro 500 Cipro 500 2018- No [...] MD,Qutaybe tablet tablet h metOLazone metOLazone 2018-02 Yes Maghaydah Unknown Unknown 2.5 mg 2.5 mg [...]
--- OUTSIDE RECORDS SUMMARY | 2019-05-13 12:13 | XMS REPORT ---
:1960 Author Organization [facility] Care Team Providers Name Role Phone Unavailable Unavailable Unavailable Problems Condition Condition Condition Status Onset Resolution Last Treating Comments Name Details Category Date Date Treatment Clinician Date Chronic Chronic Diagnosis Active Catia diastolic diastolic 1- Valle[place]ron (congestive (congestive ) heart ) heart failure failure Chronic Chronic Diagnosis Active Catia kidney kidney 05-10 [place] disease, disease, unspecified unspecified Type 2 Type 2 Diagnosis Active Catia diabetes diabetes 1- [place] mellitus mellitus without without complicatio complicatio ns ns 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 Unspecified Unspecified Diagnosis Active Catia atrial atrial 1- [place] fibrillatio fibrillatio n n Chronic Chronic Diagnosis Active Catia obstructive obstructive 1- [place] pulmonary pulmonary disease, disease, unspecified unspecified Obstructive Obstructive Diagnosis Active Catia sleep apnea sleep apnea [place] (adult) (adult) (pediatric) (pediatric) Adult Adult Diagnosis Active Catia failure to failure to [place] thrive 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 Catia (current) (current) [place] use of use of anticoagula anticoagula nts nts 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 exterminator helper 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 Diagnosis Active Catia (current) (current) [place] use of use of aspirin aspirin Hyperlipide Hyperlipide Diagnosis Active Catia tuan, tuan, [place] unspecified unspecified Cardio edema Cardiovasc Resolve 2018-03-13 Catia mendiola 1-03 10:00:00 [place] 11:00: 00 Cardio knowledge/s Cardiovasc Resolve 2018-03-13 Catia kill ular d 1-03 10:00:00 [place] deficit: pt 11:00: 00 Cardio knowledge/s Cardiovasc Resolve 2018-03-13 Catia chance ular d - 10:00:00 [place] deficit: cg 11:00: 00 Respiratory dyspnea Respirator Resolve 2018-03-13 Catia bradford y d 02-19 10:00:00 [place] 11:00: 00 Endo/Viktor diabetic Endo/Viktor Resolve 2018-02-25 Catia foot care d - 11:25:00 [place] 11:00: 00 Endo/Viktor anti-coagul Endo/Viktor Resolve 2018-02-25 Catia ation d 02-19 11:25:00 [place] therapy 11:00: 00 Nutrition knowledge/s Nutrition Resolve 2018-02-25 Catia fletcher d 02-19 11:25:00 [place] deficit: pt 11:00: [...] 00 Neuro knowledge/s Neuro/Emot Resolve 2018-2018-02-25 Catia kill ion d 1-03 11:25:00 [place] [...] can be left Safety Resolve 2018-03-13 Catiageremias tamze for d 1-03 10:00:00 [place] only short 11:00: periods 00 Medication oral med Meds Resolve 2018-02-25 Catia assistance d 1-03 11:25:00 [place] required 11:00: 00 Musculoskel knowledge/s Musculoske Resolve 2018-03-13 Catia etal kill letal d 1-03 10:00:00 [place] deficit: pt 11:00: 00 Musculoskel knowledge/s Musculoske Resolve 2018-03-13 Catia etal kill letal d 1-03 10:00:00 [place] deficit: cg 11:00: 00 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 PT/OT: Resolve 2018-12-29 Catia yousif rdination Balance/En d -03 17:15:00 [place] deficit durance 11:00: 00 Social support FEDE: Resolve 2018-05-08 Catia Services deficit Social d 1-03 10:00:00 [place] Services 11:00: 00 Gait/Locomo gait PT/OT: Resolve 2018-12-29 Catia damaris deficit Gait/Locom d 02-19 17:15:00 [place] problems otion 11:00: 00 Cardio pacemaker/I Cardiovasc Resolve 2018-03-13 Catia ABDULAZIZ ular d 02-25 10:00:00 [place] 11:25: 00 Integument skin Integument Resolve 2018-03-13 Catia integrity d 02-25 10:00:00 [place] risk 11:25: 00 Bed mobility/tr PT/OT: Bed Resolve 2018-12-29 Deejay Mobility/Tr jovon Mobility/T d 02-25 17:15:00 [place] sigala device ransfer 14:50: [id number] present 00 Bed transfer PT/OT: Bed Resolve 2018-12-29 Deejay Mobility/Tr deficit: Mobility/T d 02-25 17:15:00 [place] sigala toilet/comm ransfer 14:50: [id number] 00 Bed transfer PT/OT: Bed Resolve 2018-12-29 Deejay Mobility/Tr deficit: Mobility/T d 02-25 17:15:00 [place] sigala shower/tub ransfer 14:50: [id number] 00 Bed knowledge/s PT/OT: Bed Resolve 2018-12-29 Deejay Mobility/Tr kill Mobility/T d 02-25 17:15:00 [place] sigala deficit: pt ransfer 14:50: [id number] 00 Balance/End knowledge/s PT/OT: Resolve 2018-12-29 Deejay yousif kill Balance/En d 02-25 17:15:00 [place] deficit: pt durance 14:50: [id number] 00 Environment knowledge/s PT/OT: Resolve 2018-12-29 Deejay hennessy kill Environmen d 02-25 17:15:00 [place] deficit: pt t 14:50: [id number] 00 Environment environment PT/OT: Resolve 2018-12-29 Deejay hennessy al barriers Environmen d 02-25 17:15:00 [place] t 14:50: [id number] 00 Gait/Locomo gait PT/OT: Resolve 2018-12-29 Deejay tisimran assistive Gait/Locom d 02-25 17:15:00 Garibay problems device otion 14:50: [id number] present 00 Gait/Locomo knowledge/s PT/OT: Resolve 2018-12-29 Deejay ocampo kill Gait/Locom d 02-25 17:15:00 Garibay problems deficit: pt otion 14:50: [id number] 00 Cardio edema Cardiovasc Resolve 2018-05-27 Catia [...] [place] 14:00: 00 Neuro knowledge/s Neuro/Emot Resolve 2019-2018-04-24 Catia kill ion d 2- 10:00:00 [place] deficit: pt 14:00: 00 Neuro anxiety Neuro/Emot Resolve 2018-04-09 Catia present ion d 2-21 14:00:00 [place] 14:00: 00 Cardio knowledge/s Cardiovasc Resolve 2018-05-27 Vonnie kill ular d 2- 10:00:00 [place] deficit: pt 09:50: [id number] 00 Cardio knowledge/s Cardiovasc Resolve 2018-05-27 Vonnie kill ular d 2 10:00:00 [place] deficit: cg 09:50: [id number] 00 Respiratory lung sounds Respirator Resolve 2018-04-17 Vonnie deficit y d 2 09:00:00 [place] 09:50: [id number] 00 Medication oral med Meds Resolve 2018-04-24 [...] required 10:00: 00 Social support FEDE: Active 2018- Catia Services deficit Social 05-15 [place] Services 10:00: 00 Neuro knowledge/s Neuro/Emot Resolve 2018-06-19 Catia kill ion d 05-20 09:00:00 [place] deficit: pt 11:00: 00 Safety can be left Safety Resolve 2018-06-17 Catia alone for d 4- 09:00:00 [place] only short 11:00: periods 00 Respiratory knowledge/s Respirator Resolve 2018-2018-05-22 Roslyn kill y d 4- 09:00:00 [place] deficit: pt 10:00: [id number] 00 Social knowledge/s FEDE: Resolve 2018-2018-05-21 [facility] Services kill Social d 4- 10:00:00 [place] deficit - Services 10:00: [id number] pt 00 Social knowledge/s FEDE: Resolve 2018-2018-05-21 [facility] Services kill Social d 4- 10:00:00 [place] deficit - Services 10:00: [id number] cg 00 24 Hr Diet nutrition NT: 24Hr Active Silvana intake Diet 05-22 [place] deficit 09:50: [id number] 00 24 Hr Diet knowledge/s NT: 24Hr Resolve 2018-05-22 Silvana kill Diet d 05-22 09:50:00 [place] deficit - 09:50: [id number] pt 00 Nutritional food NT: Resolve 2018-05-22 Silvana Barrier storage/pre Barriers d 05-22 09:50:00 [place] p deficit 09:50: [id number] 00 Respiratory lung sounds Respirator Resolve 2018-05-27 Vonnie deficit y d 05-25 10:00:00 [place] 09:10: [id number] 00 Respiratory nebulizer Respirator Resolve 2018-05-27 Vonnie treatment y d 05-25 10:00:00 [place] in home 09:10: [id number] 00 Neuro impaired Neuro/Emot Resolve 2018-06-19 Catia toscano-ma ion d 05-27 09:00:00 [place] addison 10:00: 00 Test/Treatm tests Test/Injec Resolve 2018-06-09 Vonnie ent ordered t/Chele d 05-28 09:05:00 [place] [id number] Cardio knowledge/s Cardiovasc Resolve 2018-06-06 Catia blackar d 412 12:00:00 [place] deficit: pt 09:00: 00 Cardio pacemaker/I Cardiovasc Resolve 2018-06-06 Catia blackar d 12 12:00:00 [place] 09:00: 00 Cardio [...] present y d 4-15 09:00:00 [place] 09:00: [id number] 00 Respiratory oxygen Respirator Resolve 2018-06-10 Vonnie treatments y d 4-15 09:00:00 [place] in home 09:00: [id number] 00 Respiratory lung sounds Respirator Resolve 2018-06-06 Vonnie deficit y d 4-15 12:00:00 [place] 09:00: [id number] 00 Endo/Viktor diabetic Endo/Viktor Resolve 2018-06-06 Catia foot care d 4-19 12:00:00 [place] 17:00: 00 Nutrition nutritional Nutrition Resolve 2018-07-23 Catia restriction d 4 11:15:00 [place] s 17:00: 00 Nutrition changing [...] d 06-08 09:00:00 [place] deficit: pt 10:35: [id number] 00 24 Hr Diet nutrition NT: 24Hr Unknown Silvana intake Diet 06-08 [place] deficit 10:40: [id number] 00 24 Hr Diet knowledge/s NT: 24Hr Resolve 2018-06-08 Silvana kill Diet d 06-08 10:40:00 [place] deficit - 10:40: [id number] pt 00 Respiratory lung sounds Respirator Resolve 2018-06-10 Vonnie deficit y d 06-09 09:00:00 [place] 09:05: [id number] 00 Musculoskel requires Musculoske Resolve 2018-06-10 Vonnie etal human letal d 06-09 09:00:00 [place] assist to 09:05: [id number] leave home 00 Cardio edema Cardiovasc Resolve 2018-06-12 Catia ular d 06-10 10:20:00 [place] 09:00: 00 Cardio [...] d 06-11 10:20:00 [place] deficit: cg 10:00: [id number] 00 Nutrition changing Nutrition Resolve 2018-06-26 Catia weight/appe d 06-12 08:30:00 [place] tite 10:20: 00 Nutrition knowledge/s Nutrition Resolve 2018-06-12 Catia kill d 06-12 10:20:00 [place] deficit: pt 10:20: 00 Cardio edema Cardiovasc Resolve 2018-06-17 Vonnierea wilhelm d 06-15 09:00:00 [place] 09:15: [id number] 00 Cardio pacemaker/I Cardiovasc Resolve 2018-06-17 Vonnierea CINTRON ular d 06-15 09:00:00 [place] 09:15: [id number] 00 Respiratory dyspnea Respirator Resolve 2018-06-17 Vonnie present y d 06-15 09:00:00 [place] 09:15: [id number] 00 Respiratory oxygen Respirator Resolve 2018-06-19 Vonnie treatments y d 06-15 09:00:00 [place] in home 09:15: [id number] 00 Respiratory lung sounds Respirator Resolve 2018-06-17 Vonnie deficit y d 06-15 09:00:00 [place] 09:15: [id number] 00 Nutrition knowledge/s Nutrition Resolve 2018-06-17 Vonnie kill d 06-15 09:00:00 [place] deficit: pt 09:15: [id number] 00 Sensory impaired Sensory Resolve 2018-06-22 Catia [...] nutrition NT: 24Hr Unknown Silvana intake Diet 5- [place] deficit 15:30: [id number] 00 24 Hr Diet knowledge/s NT: 24Hr Resolve 2018-06-18 Silvana kill Diet d 5- 15:30:00 [place] deficit - 15:30: [id number] pt 00 Nutrition knowledge/s Nutrition Resolve 2018-06-19 Catia kill d 06-19 09:00:00 [place] deficit: pt 09:00: 00 Safety can be left Safety Resolve 2018-06-26 Catia alone for d 06-19 08:30:00 [place] only short 09:00: periods 00 Medication oral med Meds Resolve 2018-06-19 Catia assistance d 06-19 09:00:00 [place] required 09:00: 00 Cardio edema Cardiovasc Resolve 2018-06-26 Vonnie wilhelm d 06-22 08:30:00 [place] 09:15: [id number] 00 Cardio knowledge/s Cardiovasc Resolve 2018-07-24 Vonnieajith fletcher ular d 06-22 09:00:00 [place] deficit: pt 09:15: [id number] 00 Cardio pacemaker/I Cardiovasc Resolve 2018-06-26 Vonnierea CINTRON ular d 06-22 08:30:00 [place] 09:15: [id number] 00 Nutrition knowledge/s Nutrition Resolve 2018-06-24 Vonnie kill d 06-22 11:00:00 [place] deficit: pt 09:15: [id number] 00 Nutrition knowledge/s Nutrition Resolve 2018-06-24 Vonnie kill d 06-22 11:00:00 [place] deficit: cg 09:15: [id number] 00 Neuro impaired Neuro/Emot Resolve 2018-06-26 Vonnie decision-ma ion d 06-22 08:30:00 [place] addison 09:15: [id number] 00 Neuro knowledge/s Neuro/Emot Resolve 2018-06-22 Vonnie kill ion d 06-22 09:15:00 [place] deficit: pt 09:15: [id number] 00 Neuro knowledge/s Neuro/Emot Resolve 2018-06-24 Vonnie kill ion d 06-23 11:00:00 [place] deficit: pt 09:30: [id number] 00 Social financial FEDE: Active [facility] Services resource Social 06-23 [place] deficit Services 09:45: [id number] 00 Social knowledge/s FEDE: Resolve 2018-06-23 [facility] Services kill Social d 06-23 09:45:[facility] 09[facility]: [id number] pt 00 Respiratory oxygen Respirator Resolve 2018-06-26 [...] 00 Cardio edema Cardiovasc Resolve 2018-07-08 Vonnie wilhelm d 5-13 16:00:00 [place] 09:30: [id number] 00 Respiratory oxygen Respirator Resolve 2018-07-08 Vonnierea sánchez y d 5-13 16:00:00 [place] in home 09:30: [id number] 00 Nutrition knowledge/s Nutrition Resolve 2018-07-01 Vonnie fletcher d 5-13 10:00:00 [place] deficit: pt 09:30: [id number] 00 Cardio chest pain Cardiovasc Resolve 2018-07-08 Catia wilhelm d 5-15 16:00:00 [place] 10:00: 00 Cardio pacemaker/I Cardiovasc Resolve 2018-07-08 Catia wilhelm d -15 16:00:00 [place] 10:00: 00 Social knowledge/s FEDE: Resolve 2018-07-08 Catia Joy kill Social d 5-15 11:00:00 [place] deficit - Services 10:00: pt 00 Nutrition knowledge/s Nutrition Resolve 2018-07-08 Vonnie fletcher d -20 16:00:00 [place] deficit: pt 09:15: [id number] 00 Safety structural Safety Resolve 2018-07-23 Roslyn barriers d 07-08 11:15:00 [place] present 11:00: [id number] 00 Safety sanitation Safety Resolve 2018-07-23 Roslyn hazards d 07-08 11:15:00 [place] present 11:00: [id number] 00 Safety can be left Safety Resolve 2018-07-23 Roslyn alone for d 07-08 11:15:00 [place] only short 11:00: [id number] periods 00 Neuro impaired Neuro/Emot Active Catia antunez 07-08 [place] jaime 16:00: 00 Medication oral med Meds Resolve 2018-07-10 Catia assistance d 07-08 09:08:00 [place] required 16:00: 00 Medication injectable Meds Unknown Catia med 07-08 [place] assistance 16:00: required 00 Cardio edema Cardiovasc Resolve 2018-07-23 Vonnie ular d 07-10 11:15:00 [place] 09:08: [id number] 00 Cardio pacemaker/I Cardiovasc Resolve 2018-07-23 Vonnie CD ular d 07-10 11:15:00 [place] 09:08: [id number] 00 Respiratory oxygen Respirator Resolve 2018-08-14 Vonnie treatments y d 07-10 09:00:00 [place] in home 09:08: [id number] 00 Respiratory lung sounds Respirator Resolve 2018-07-24 Vonnie deficit y d 07-10 09:00:00 [place] 09:08: [id number] 00 Nutrition knowledge/s Nutrition Resolve 2018-07-23 Vonnie kill d 07-10 11:15:00 [place] deficit: pt 09:08: [id number] 00 Neuro knowledge/s Neuro/Emot Resolve 2018-07-23 Vonnie kill ion d 07-10 11:15:00 [place] deficit: pt 09:08: [id number] 00 Social knowledge/s FEDE: Resolve 2018-09-29 Vonnie Services kill Social d 07-10 10:00:00 [place] deficit - Services 09:08: [id number] pt 00 Neuro memory Neuro/Emot Resolve 2018-07-23 Vonnie deficit ion d 07-14 11:15:00 [place] needing 09:18: [id number] supervision 00 Pain frequent Pain Mgmt Active Vonnie pain 07-17 [place] 09:40: [id number] 00 Nutrition knowledge/s Nutrition Resolve 2018-07-23 Vonnie kill d 07-17 11:15:00 [place] deficit: cg 09:40: [id number] 00 Medication injectable Meds Unknown Vonnie med 07-17 [place] assistance 09:40: [id number] required 00 Respiratory bloody Respirator Resolve 2018-2018-07-27 Vonnie sputum y d 6 09:00:00 [place] 09:07: [id number] 00 Respiratory dyspnea Respirator Resolve 2018-07-27 Catia bradford y d 07-23 09:00:00 [place] 11:15: 00 Elimination bowel Eliminatio Resolve 2018-07-24 Catia baezaenc n d 07-23 09:00:00 [place] e 11:15: [...] [place] 09:00: 00 Respiratory CPAP Respirator Resolve 2018-2018-07-27 Catia sánchez y d 07-24 09:00:00 [place] [...] required 09:00: 00 Medication injectable Meds Unknown Catia med 07-24 [place] assistance 09:00: required 00 Nutrition knowledge/s Nutrition Resolve 2018-2018-07-31 Vonnie kill d 6-10 09:00:00 [place] deficit: pt 09:00: [id number] 00 Nutrition nutritional Nutrition Resolve 2018-2018-07-31 Vonnie restriction d 6-10 09:00:00 [place] s 09:00: [id number] 00 Cardio pacemaker/I Cardiovasc Resolve 2018-2018-07-31 Catia CINTRON ular d 6-14 09:00:00 [place] 09:00: 00 Respiratory CPAP Respirator Resolve 2018-07-31 Catia treatments y d 6-14 09:00:00 [place] in home 09:00: 00 Medication oral med Meds Resolve 2018-08-03 Catia assistance d 6-14 09:00:00 [place] required 09:00: 00 Nutrition knowledge/s Nutrition Unknown Roslyn kill 6-14 [place] deficit: pt 10:00: [id number] 00 Nutrition knowledge/s Nutrition Resolve 2018-08-07 [place] kill d 6-14 10:00:00 [place] deficit: cg 10:00: [id number] 00 Nutrition nutritional Nutrition Unknown Rsolyn restriction 6-14 [place] s 10:00: [id number] 00 Safety can be left Safety Resolve 2018-08-07 Roslyn alone for d 6-14 10:00:00 [place] only short 10:00: [id number] periods 00 Nutrition knowledge/s Nutrition Unknown Catia kill 6-14 [place] deficit: pt 10:30: 00 Nutrition nutritional Nutrition Unknown Catia restriction 6-14 [place] s 10:30: 00 Respiratory CPAP Respirator Resolve 2018-08-07 Vonnie treatments y d 6-17 10:00:00 [place] in home 09:00: [id number] 00 Nutrition knowledge/s Nutrition Resolve 2018-08-07 Vonnie kill d 6-17 10:00:00 [place] deficit: pt 09:00: [id number] 00 Nutrition nutritional Nutrition Resolve 2018-08-07 Vonnie restriction d 6-17 10:00:00 [place] s 09:00: [id number] 00 Cardio pacemaker/I Cardiovasc Resolve 2018-08-10 Catia [...] factor d 08-14 09:00:00 Thomas present 09:00: [id number] 00 Safety fire risk Safety Resolve 2018-08-28 Jennifer Baum present d 08-14 09:00:00 Thomas 09:00: [id number] 00 Safety risk for Safety Resolve 2018-08-28 Jennifer Baum hospitaliza d 08-14 09:00:00 Thomas tion 09:00: [id number] 00 Medication oral med Meds Resolve 2018-08-14 Catia assistance d 08-14 09:00:00 [place] required 09:00: 00 Cardio pacemaker/I Cardiovasc Resolve 2018-2018-08-28 Catia blackar d 08-21 09:00:00 [place] 09:00: 00 Medication oral med Meds Resolve 2018-2018-08-28 Catia assistance d 7 09:00:00 [place] required 09:00: 00 Elimination nausea/vomi Eliminatio Resolve 2018-09-04 Catia bass n d 08-28 09:45:00 [place] 09:00: 00 Safety risk for Safety [facility] 09:[facility]: [id number] 00 Cardio pacemaker/I Cardiovasc Resolve 2018-09-11 Catia [...] Vonnie wilhelm d 09-18 10:20:00 [place] 10:00: [id number] 00 Safety risk for Safety Resolve 2018-09-18 Vonnie hospitaliza d 09-18 10:00:00 [place] tion 10:00: [id number] 00 Cardio chest pain Cardiovasc Resolve 2018-09-25 Vonnierea wilhelm d 09-25 10:10:00 [place] 10:10: [id number] 00 Cardio knowledge/s Cardiovasc Resolve 2018-09-25 Vonnie chance wilhelm d 09-25 10:10:00 [place] deficit: cg 10:10: [id number] 00 Neuro memory Neuro/Emot Resolve 2018-10-23 Vonnie deficit ion d 09-25 09:00:00 [place] needing 10:10: [id number] supervision 00 Safety risk for Safety Resolve 2018-09-25 Vonnie hospitaliza d 09-25 10:10:00 [place] tion 10:10: [id number] 00 Neuro depressive Neuro/Emot Resolve 2018-10-23 Catia feelings ion d 10-02 09:00:00 [place] present 09:00: 00 Safety risk for Safety Resolve 2018 Catia hospitaliza d 10-02 09:00:00 [place] tion 09:00: 00 Safety risk for Safety Resolve 2018-10-09 Vonnie hospitaliza d 10-06 10:20:00 [place] tion 11:40: [id number] 00 Elimination nausea/vomi Eliminatio Resolve 2018-10-16 Catia [...] FEDE: Active [facility] Services kill Social 10-28 [facility] deficit - Services 16:15: [id number] pt 00 Cardio pacemaker/I Cardiovasc Resolve 2018-10-30 [...] 09:00: 00 Elimination recurring Eliminatio Resolve 2018-11-27 Catai UTI n d 11-13 09:00:00 [place] 09:00: [...] home 09:00: 00 Integument skin Integument Resolve 2018-2018-12-04 Catia integrity d 0-11 09:00:00 [place] risk [...] Cardiovasc Resolve 2018-022019-01-07 Catia CINTRON ular d 02-17 09:00:00 [place] 11:00: 00 Safety risk for Safety Active 2018-02 [facility] hospital[facility] 02-21 [place] tion 10:15: [id number] 00 Safety sanitation Safety Resolve 2018-022018-12-30 Janet hazards d 1-05 10:00:00 Chaudhari present 15:10: [id number] 00 Safety fall risk Safety Resolve 2018-022018-12-24 Janet factor d 105 09:00:00 Chaudhari present 15:10: [id number] 00 Respiratory oxygen Respirator Resolve 2018-022018-12-30 Catia [...] restriction d 03-13 08:00:00 [place] s 15:30: [id number] 00 Respiratory oxygen Respirator Resolve 2018-022019-01-15 Catia [...] 2018-02 [place] restriction 2-20 [place] s 10:15: [id number] 00 Cardio pacemaker/I Cardiovasc Resolve 2018-022019-02-19 Catia [...] Cardio chest pain Cardiovasc Resolve 2019-04-08 Catia ulefren d 1-03 09:00:00 [place] 09:00: 00 Cardio pacemaker/I Cardiovasc Resolve 2019-0 2019-02-26 Catia CD ular d 1-10 08:30:00 [place] 08:30: 00 Respiratory oxygen Respirator Resolve 2019-0 2019-03-05 Catia treatments y d 1-17 09:00:00 [place] in home 09:00: 00 Respiratory CPAP Respirator Resolve 2019-0 2019-03-05 Catia treatments y d 1-17 09:00:00 [place] in home 09:00: 00 Sensory impaired Sensory Resolve 2019-0 2019-03-12 Catia verbal d 1-17 09:00:00 [place] communicati [...] [place] required 11:00: 00 Cardio hypertensio Cardiovasc Active Catia n ular - [place] 09:00: 00 Cardio pacemaker/I Cardiovasc Resolve 2019-04-22 Catia CD ular d 04-21 09:00:00 [place] 09:00: 00 Respiratory oxygen Respirator Resolve 2019-04-22 Catia treatments y d 04-21 09:00:00 [place] in home 09:00: 00 Elimination nausea/vomi Eliminatio Active Catia ting n 04-21 [place] 09:00: 00 Neuro depressive Neuro/Emot Active Catia feelings ion 04-21 [place] present 09:00: 00 Allergies, Adverse Reactions, Alerts Allergy Allergy Status Severity Reaction(s) Onset Inactive Treating Comments Name Type Date Date Clinician shellfish Unknown Active Unknown Reaction 2017-05 Massiel Unknown -11 (Maria G) Shaun [id number] IVP DYE Unknown Active Unknown Reaction 2017-05 Massiel Unknown -11 (Maria G) Shaun [id number] Medications Ordered Filled Start Stop Current Ordering Indication Dosage Frequency Signature Comments Components Medication Medication Date Date Medication? Clinician (SIG) Name Name albuterol albuterol No Midura 1 puffs Unknown sulfate HFA sulfate HFA Erasmo ANDERSON 90 90 mcg/actuati mcg/actuati on aerosol on aerosol inhaler inhaler lisinopril lisinopril No Midura 2.5 mg Unknown 2.5 mg 2.5 mg MDErasmo tablet tablet omeprazole omeprazole No Midura 20 mg Unknown 20 mg 20 mg ,Erasmo capsule,del capsule,del ayed ayed release release gabapentin gabapentin No Midura 300 mg Unknown 300 mg 300 mg ,Erasmo capsule capsule Symbicort Symbicort No Midura 2 [...] Unknown Unknown 2.5 mg 2.5 mg 02-19 MD,Erasmo tablet tablet dilTIAZem dilTIAZem No Midura Unknown Unknown 30 mg 30 mg 02-19 MD,Erasmo tablet tablet Janumet 50 Janumet 50 No Midura Unknown Unknown mg-1,000 mg mg-1,000 mg 02-19 MD,Erasmo tablet tablet Xarelto 20 Xarelto 20 2018- No Midura Unknown Unknown mg tablet mg tablet 02-19 ,Erasmo gabapentin gabapentin 2018- No Midura Unknown Unknown 300 mg 300 mg 02-19 MD,Erasmo capsule capsule cetirizine cetirizine No Midura Unknown Unknown 10 mg 10 mg 02-19 MD,Erasmo tablet tablet spironolact spironolact 2018- No Midura Unknown Unknown one 25 mg one 25 mg 02-19 ,Erasmo tablet tablet Symbicort Symbicort No Midura Unknown Unknown 80 mcg-4.5 80 mcg-4.5 02-19 Erasmo ANDERSON mcg/actuati mcg/actuati on HFA on HFA aerosol aerosol inhaler inhaler ferrous ferrous 2018- No Midura Unknown Unknown sulfate 325 sulfate 325 02-19 Erasmo ANDERSON mg (65 mg mg (65 mg iron) iron) tablet,belkys tablet,belkys yed release yed release lactulose lactulose 2018- No Midura Unknown Unknown 20 gram/30 20 gram/30 02-19 02 Erasmo ANDERSON mL oral mL oral solution solution potassium potassium 2018- No Midura Unknown Unknown chloride ER chloride ER 02-19 Erasmo ANDERSON 20 mEq 20 mEq tablet,exte tablet,exte nded [...] Unknown Unknown oxide 400 oxide 400 02-19 MD,Erasmo mg (241.3 mg (241.3 mg mg magnesium) magnesium) tablet tablet Maalox Maalox No Midura Unknown Unknown Maximum Maximum 02-19 MD,Erasmo Strength Strength 400 mg-400 400 mg-400 mg-40 [...] Tylenol No Midura Unknown Unknown Extra Extra 02-19 MD,Erasmo Strength Strength 500 mg 500 mg tablet tablet Colace 100 Colace 100 2018- No Midura Unknown Unknown mg capsule mg capsule 02-19 MD,Erasmo albuterol albuterol No Midura Unknown Unknown sulfate [...] Unknown Unknown 20 mg 20 mg 04-24 [place], [place] tablet tablet furosemide furosemide 2018- No Maghaydah Unknown Unknown 20 mg 20 mg 04-24- MD,Qutaybe tablet tablet h torsemide torsemide 2018- No Maghaydah Unknown Unknown 20 mg 20 mg 04-29 MD,Qutaybe tablet tablet h Lasix 20 mg Lasix 20 mg 2018- No Maghaydah Unknown Unknown tablet tablet 05-05 ,Qufeliciano h cephALEXin cephALEXin 2018- No Midura Unknown Unknown 500 mg 500 mg 05-06 ,Erasmo capsule capsule triamcinolo triamcinolo 2018- No Midura Unknown Unknown ne ne 05-06 ,Erasmo acetonide acetonide 0.1 % 0.1 % topical topical cream cream Lasix 20 mg Lasix 20 mg 2018- No Maghaydah Unknown Unknown tablet tablet 05-07 ,Meg h Lasix 20 mg Lasix 20 mg 2018- No Maghaydah Unknown Unknown tablet tablet 05-07 ,Qutaybe h furosemide furosemide 2018- No Maghaydah Unknown Unknown 20 mg 20 mg 05-09 ,Qutaybe tablet tablet h Lasix 20 mg Lasix 20 mg 2018- No Maghaydah Unknown Unknown tablet tablet 05-08 MD,Qutaybe h ferrous ferrous 2018- No Midura Unknown Unknown sulfate 325 sulfate 325 05-14 ,Erasmo mg (65 mg mg (65 mg iron) iron) tablet,belkys tablet,belkys yed release yed release furosemide furosemide 2018- No Cely Unknown Unknown 80 mg 80 mg 05-15 MD,Magdale tablet tablet na furosemide furosemide 2018- No Midura Unknown Unknown 80 mg 80 mg [...] h Lasix 40 mg Lasix 40 mg 2018- No Maghaydah Unknown Unknown tablet tablet 05-27 MD,Qutaybe h bumetanide bumetanide 2018- No Maghaydah Unknown Unknown 1 mg tablet 1 mg tablet 05-28 MD,Qutaybe h bumetanide bumetanide 2018- No Maghaydah Unknown Unknown 1 mg tablet 1 mg tablet 06-01 MD,Qutaybe h bumetanide bumetanide 2018- No Maghaydah Unknown Unknown 1 mg tablet 1 mg tablet 05-29 MD,Qutaybe h torsemide torsemide 2018- No Midura Unknown Unknown 20 mg 20 mg 06-05 MD,Erasmo tablet tablet patiromer patiromer 2018- No Kardon Unknown Unknown calcium calcium 06-05- MD,Driss sorbitex sorbitex 8.4 gram 8.4 gram oral powder oral powder packet packet zinc oxide zinc oxide No Midura Unknown Unknown 16 % 16 % - ,Erasmo topical topical ointment ointment torsemide torsemide [...] Unknown Unknown mg capsule mg capsule 06-18- ,Earsmo Colace 100 Colace 100 No Midura Unknown Unknown mg capsule mg capsule 06-18 MD,Erasmo torsemide torsemide 2018- No Maghaydah Unknown Unknown 20 mg 20 mg 06-23 MD,Qutaybe tablet tablet h torsemide torsemide 2018- No Maghaydah Unknown Unknown 20 mg 20 mg 06-26 MD,Qutaybe tablet tablet h torsemide torsemide 2018- No Maghaydah Unknown Unknown 20 mg 20 mg 06-29- MD,Qutaybe tablet tablet h Nasonex 50 Nasonex 50 No Maghaydah Unknown Unknown mcg/actuati mcg/actuati 06-25 MD,Qutaybe on Alexis on Alexis h Cipro 500 Cipro 500 2018- No Midura Unknown Unknown mg tablet mg tablet 07-03 Erasmo ANDERSON torsemide torsemide 2018- No Maghaydah Unknown Unknown 20 mg 20 mg 07-21 08- MD,Qutaybe tablet tablet h metOLazone metOLazone 2018- No Maghaydah Unknown Unknown 2.5 mg 2.5 mg 07-21 06-15 MD,Qutaybe tablet tablet h mometasone mometasone No Midura Unknown Unknown 0.1 % 0.1 % 08-04 ,Erasmo topical topical cream cream torsemide torsemide No Maghaydah Unknown Unknown 10 mg 10 mg 8- MD,Qutaybe tablet tablet h clonazePAM clonazePAM 2018- No Midura Unknown Unknown 0.5 mg 0.5 mg 10-27-24 Erasmo ANDERSON tablet tablet Oxygen Oxygen No Midura Unknown Unknown 10-30 MD,Erasmo ferrous ferrous No Midura Unknown Unknown sulfate [...] Unknown Unknown mg tablet mg tablet 11-13 ,Erasmo glimepiride glimepiride 2018-02- No Midura Unknown Unknown 2 mg tablet 2 mg tablet 03-31 ,Erasmo metOLazone metOLazone 2018-02- No Maghaydah Unknown Unknown [...] Maghaydah Unknown Unknown 2.5 mg 2.5 mg 16 MD,Qutaybe tablet tablet h traZODone traZODone 2018-02- Yes Midura Unknown Unknown 50 mg 50 mg 04-09 MD,Erasmo tablet tablet glimepiride glimepiride Yes Midura Unknown Unknown 2 mg tablet 2 mg tablet 03-31 MD,Erasmo ciprofloxac ciprofloxac 2020- Yes Midura Unknown Unknown in 500 mg in 500 mg 04-08 MD,Erasmo tablet tablet Vital Signs Vital Name Observation Time Observation [...]
--- OUTSIDE RECORDS SUMMARY | 2019-05-13 12:13 | XMS REPORT | Continuity of Care Document ---
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 Provider Date Alcoholic cirrhosis [...] day Torsemide 1 by mouth twice 60tabs Kishor Marrufo, 10mg Tablets a day Colace 1 [...] Tablets Aspirin 81 daily Unknown 81mg Tablets DR Olivera CPT Code Status Date Vaccine Lot # [id number] Given 05/01/2014 Pneumovax Vital Signs Date Vital [...] Result H/L Range Note Laboratory test 04/26/2019 [facility] [place]otest SEE RESULT 1 finding BELOW CBC W/Auto 03/31/2019 [facility] [place] White Blood 8.5 10^3/uL Normal 3.5-10.8 Differential(!) [...] [address]: Kishor Marrufo MD Acct: [id number] Unit: [id number] AGE: 58 Location: [facility] Re04/26/19 SEX: M Status: REG REF SPEC: [id number] VINH: 04/26/19-[address] [facility] [address]: Kishor Marrufo MD REQ: [id number] RECD: 04/26/19 STATUS: LEYDI DONATO DR: Erasmo Hill MD _ SOURCE: GAS ANTRUM SPDESC: ORDERED: Clotest Procedure Result Reported Site Clotest Final 04/27/19- 0759 ML Clotest Negative * ML - Main Lab . END OF REPORT DEPARTMENT OF PATHOLOGY, [address] [place] [address] Manny Borrego M.D. Director [facility] # [id number] SEE RESULT BELOW Name: FERCHO FRIAS : [address]: Kishor Marrufo MD Acct: [id number] Unit: [id number] AGE: 58 Location: ENDO Re04/26/19 SEX: M Status: REG REF SPEC: [id number] VINH: 04/26/19-[address]: Kishor Marrufo MD REQ: [id number] RECD: 04/26/19-1529 STATUS: LEYDI DONATO DR: Erasmo Hill MD _ SOURCE: GAS ANTRUM SPDESC: ORDERED: Clotest Procedure Result Reported Site Clotest Final 04/27/19- 0759 ML Clotest Negative * ML - Main Lab . END OF REPORT DEPARTMENT OF PATHOLOGY, [address] [place] [address] Manny Borrego M.D. Director [facility] # [id number] 2 Because ethnic data is not always [...] GLU:[id number] MARRUFO at: 15:59:30 by:[id number] Read back by:DR MARRUFO 4 Because ethnic [...] High intensity warfarin therapeutic range: 2.5-3.5 Procedures Description No Information Available Medical Devices Description No Information Available Encounters Type Date Location Provider Dx Diagnosis Office Visit 03/31/2019 [facility] Kishor Graned K70.31 Alcoholic 11:00a [facility] Latha Marrufo MD cirrhosis of liver with ascites Office Visit 01/27/2019 [facility]enterology Kishor Grande K70.31 Alcoholic 11:00a [facility] Latha Marrufo MD cirrhosis of liver with ascites K74.69 Other cirrhosis of liver Assessments Date Code Description Provider 03/31/2019 K70.31 Alcoholic cirrhosis of liver with [...] to look for varices; will arrange at [facility] re: oxygen use Functional Status Description No Information Available Mental Status Description No Information Available Referrals Description No Information Available
--- OUTSIDE RECORDS SUMMARY | 2019-05-13 12:14 | XMS REPORT ---
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 PT/OT: Resolve 2018-12-29 Catia yousif rdination [...] 02-25 17:15:00 [place] sigala device ransfer 14:50: [id number] present 00 Bed transfer PT/OT: Bed Resolve 2018-12-29 Deejay Mobility/Tr deficit: Mobility/T d 02-25 17:15:00 [place] sigala toilet/comm ransfer 14:50: [id number] ode 00 Bed transfer PT/OT: Bed Resolve 2018-12-29 Deejay Mobility/Tr deficit: Mobility/T d 02-25 17:15:00 [place] sigala shower/tub ransfer 14:50: [id number] 00 Bed knowledge/s PT/OT: Bed Resolve 2018-12-29 Deejay Mobility/Tr kill Mobility/T d 02-25 17:15:00 [place] sigala deficit: pt ransfer 14:50: [id number] 00 Balance/End knowledge/s PT/OT: Resolve 2018-12-29 Deejay yousif kill Balance/En d 02-25 17:15:00 [place] deficit: pt durance 14:50: [id number] 00 Environment knowledge/s PT/OT: Resolve 2018-12-29 Deejay hennessy kill Environmen d 02-25 17:15:00 [place] deficit: pt t 14:50: [id number] 00 Environment environment PT/OT: Resolve 2018-12-29 Deejay hennessy al barriers Environmen d 02-25 17:15:00 [place] t 14:50: [id number] 00 Gait/Locomo gait PT/OT: Resolve 2018-12-29 Deejay tisimran assistive Gait/Locom d 02-25 17:15:00 Garibay problems device otion 14:50: [id number] present 00 Gait/Locomo knowledge/s PT/OT: Resolve 2018-12-29 Deejay ocampo kill Gait/Locom d 02-25 17:15:00 Garibay problems deficit: pt otion 14:50: [id number] 00 Cardio edema Cardiovasc Resolve 2018-05-27 Catia [...] d 2- 10:00:00 [place] deficit: pt 09:50: [id number] 00 Cardio knowledge/s Cardiovasc Resolve 2018-05-27 Vonnie kill ular d 2 10:00:00 [place] deficit: cg 09:50: [id number] 00 Respiratory lung sounds Respirator Resolve 2018-04-17 Vonnie deficit y d 2 09:00:00 [place] 09:50: [id number] 00 Medication oral med Meds Resolve 2018-04-24 [...] d 4- 09:00:00 [place] deficit: pt 10:00: [id number] 00 Social knowledge/s FEDE: Resolve 2018-2018-05-21 [facility] kill Social d 4- 10:00:00 [place] deficit - Services 10:00: [id number] pt 00 Social knowledge/s FEDE: Resolve 2018-2018-05-21 [facility] kill Social d 4- 10:00:00 [place] deficit - Services 10:00: [id number] cg 00 24 Hr Diet nutrition NT: 24Hr Active Silvana intake Diet 05-22 [place] deficit 09:50: [id number] 00 24 Hr Diet knowledge/s NT: 24Hr Resolve 2018-05-22 Silvana kill Diet d 05-22 09:50:00 [place] deficit - 09:50: [id number] pt 00 Nutritional food NT: Resolve 2018-05-22 Silvana Barrier storage/pre Barriers d 05-22 09:50:00 [place] p deficit 09:50: [id number] 00 Respiratory lung sounds Respirator Resolve 2018-05-27 Vonnie deficit y d 05-25 10:00:00 [place] 09:10: [id number] 00 Respiratory nebulizer Respirator Resolve 2018-05-27 Vonnie treatment y d 05-25 10:00:00 [place] in home 09:10: [id number] 00 Neuro impaired Neuro/Emot Resolve 2018-06-19 Catia toscano-ma ion d 05-27 09:00:00 [place] addison 10:00: 00 Test/Treatm tests Test/Injec Resolve 2018-06-09 Vonnie ent ordered t/Cheel d 05-28 09:05:00 [place] [id number] Cardio knowledge/s Cardiovasc Resolve 2018-06-06 Catia blackar [...] present y d 4-15 09:00:00 [place] 09:00: [id number] 00 Respiratory oxygen Respirator Resolve 2018-06-10 Vonnie treatments y d 4-15 09:00:00 [place] in home 09:00: [id number] 00 Respiratory lung sounds Respirator Resolve 2018-06-06 Vonnie deficit y d 4-15 12:00:00 [place] 09:00: [id number] 00 Endo/Viktor diabetic Endo/Viktor Resolve 2018-06-06 Catia [...] d 06-08 09:00:00 [place] deficit: pt 10:35: [id number] 00 24 Hr Diet nutrition NT: 24Hr Unknown Silvana intake Diet 06-08 [place] deficit 10:40: [id number] 00 24 Hr Diet knowledge/s NT: 24Hr Resolve 2018-06-08 Silvana kill Diet d 06-08 10:40:00 [place] deficit - 10:40: [id number] pt 00 Respiratory lung sounds Respirator Resolve 2018-06-10 Vonnie deficit y d 06-09 09:00:00 [place] 09:05: [id number] 00 Musculoskel requires Musculoske Resolve 2018-06-10 Vonnie etal human letal d 06-09 09:00:00 [place] assist to 09:05: [id number] leave home 00 Cardio edema Cardiovasc Resolve [...] d 06-11 10:20:00 [place] deficit: cg 10:00: [id number] 00 Nutrition changing Nutrition Resolve 2018-06-26 Catia weight/appe d 06-12 08:30:00 [place] tite 10:20: 00 Nutrition knowledge/s Nutrition Resolve 2018-06-12 Catia kill d 06-12 10:20:00 [place] deficit: pt 10:20: 00 Cardio edema Cardiovasc Resolve 2018-06-17 Vonnierea wilhelm d 06-15 09:00:00 [place] 09:15: [id number] 00 Cardio pacemaker/I Cardiovasc Resolve 2018-06-17 Vonnierea CINTRON ular d 06-15 09:00:00 [place] 09:15: [id number] 00 Respiratory dyspnea Respirator Resolve 2018-06-17 Vonnie present y d 06-15 09:00:00 [place] 09:15: [id number] 00 Respiratory oxygen Respirator Resolve 2018-06-19 Vonnie treatments y d 06-15 09:00:00 [place] in home 09:15: [id number] 00 Respiratory lung sounds Respirator Resolve 2018-06-17 Vonnie deficit y d 06-15 09:00:00 [place] 09:15: [id number] 00 Nutrition knowledge/s Nutrition Resolve 2018-06-17 Vonnie kill d 06-15 09:00:00 [place] deficit: pt 09:15: [id number] 00 Sensory impaired Sensory Resolve 2018-06-22 Catia [...] NT: 24Hr Unknown Silvana intake Diet 5- [place] deficit 15:30: [id number] 00 24 Hr Diet knowledge/s NT: 24Hr Resolve 2018-06-18 Silvana kill Diet d 5- 15:30:00 [place] deficit - 15:30: [id number] pt 00 Nutrition knowledge/s Nutrition Resolve 2018-06-19 Catia kill d 06-19 09:00:00 [place] deficit: pt 09:00: 00 Safety can be left Safety Resolve 2018-06-26 Catia alone for d 06-19 08:30:00 [place] only short 09:00: periods 00 Medication oral med Meds Resolve 2018-06-19 Catia assistance d 06-19 09:00:00 [place] required 09:00: 00 Cardio edema Cardiovasc Resolve 2018-06-26 Vonnie wilhelm d 06-22 08:30:00 [place] 09:15: [id number] 00 Cardio knowledge/s Cardiovasc Resolve 2018-07-24 Vonnieajith fletcher ular d 06-22 09:00:00 [place] deficit: pt 09:15: [id number] 00 Cardio pacemaker/I Cardiovasc Resolve 2018-06-26 Vonnierea CINTRON ular d 06-22 08:30:00 [place] 09:15: [id number] 00 Nutrition knowledge/s Nutrition Resolve 2018-06-24 Vonnie kill d 06-22 11:00:00 [place] deficit: pt 09:15: [id number] 00 Nutrition knowledge/s Nutrition Resolve 2018-06-24 Vonnie kill d 06-22 11:00:00 [place] deficit: cg 09:15: [id number] 00 Neuro impaired Neuro/Emot Resolve 2018-06-26 Vonnie decision-ma ion d 06-22 08:30:00 [place] addison 09:15: [id number] 00 Neuro knowledge/s Neuro/Emot Resolve 2018-06-22 Vonnie kill ion d 06-22 09:15:00 [place] deficit: pt 09:15: [id number] 00 Neuro knowledge/s Neuro/Emot Resolve 2018-06-24 Vonnie kill ion d 06-23 11:00:00 [place] deficit: pt 09:30: [id number] 00 Social financial FEDE: Active [facility] resource Social 06-23 [place] deficit Services 09:45: [id number] 00 Social knowledge/s FEDE: Resolve 2018-06-23 [facility] kill Social d 06-23 09:45:00 [facility] 09[facility]45: [id number] pt 00 Respiratory oxygen Respirator Resolve 2018-06-26 [...] Vonnie wilhelm d 5-13 16:00:00 [place] 09:30: [id number] 00 Respiratory oxygen Respirator Resolve 2018-07-08 Vonnierea sánchez y d 5-13 16:00:00 [place] in home 09:30: [id number] 00 Nutrition knowledge/s Nutrition Resolve 2018-07-01 Vonnie fletcher d 5-13 10:00:00 [place] deficit: pt 09:30: [id number] 00 Cardio chest pain Cardiovasc Resolve 2018-07-08 Catia wilhelm d 5-15 16:00:00 [place] 10:00: 00 Cardio pacemaker/I Cardiovasc Resolve 2018-07-08 Catia wilhelm d -15 16:00:00 [place] 10:00: 00 Social knowledge/s FDEE: Resolve 2018-07-08 Catia Joy kill Social d 5-15 11:00:00 [place] deficit - Services 10:00: pt 00 Nutrition knowledge/s Nutrition Resolve 2018-07-08 Vonnie fletcher d -20 16:00:00 [place] deficit: pt 09:15: [id number] 00 Safety structural Safety Resolve 2018-07-23 Roslyn barriers d 07-08 11:15:00 [place] present 11:00: [id number] 00 Safety sanitation Safety Resolve 2018-07-23 Roslyn hazards d 07-08 11:15:00 [place] present 11:00: [id number] 00 Safety can be left Safety Resolve 2018-07-23 Roslyn alone for d 07-08 11:15:00 [place] only short 11:00: [id number] periods 00 Neuro impaired Neuro/Emot Active Catia antunez 07-08 [place] jaime 16:00: 00 Medication oral med Meds Resolve 2018-07-10 Catia assistance d 07-08 09:08:00 [place] required 16:00: 00 Medication injectable Meds Unknown Catia med 07-08 [place] assistance 16:00: required 00 Cardio edema Cardiovasc Resolve 2018-07-23 Vonnie ular d 07-10 11:15:00 [place] 09:08: [id number] 00 Cardio pacemaker/I Cardiovasc Resolve 2018-07-23 Vonnie CD ular d 07-10 11:15:00 [place] 09:08: [id number] 00 Respiratory oxygen Respirator Resolve 2018-08-14 Vonnie treatments y d 07-10 09:00:00 [place] in home 09:08: [id number] 00 Respiratory lung sounds Respirator Resolve 2018-07-24 Vonnie deficit y d 07-10 09:00:00 [place] 09:08: [id number] 00 Nutrition knowledge/s Nutrition Resolve 2018-07-23 Vonnie kill d 07-10 11:15:00 [place] deficit: pt 09:08: [id number] 00 Neuro knowledge/s Neuro/Emot Resolve 2018-07-23 Vonnie kill ion d 07-10 11:15:00 [place] deficit: pt 09:08: [id number] 00 Social knowledge/s FEDE: Resolve 2018-09-29 [facility] Services kill Social d 07-10 10:00:00 [place] deficit - Services 09:08: [id number] pt 00 Neuro memory Neuro/Emot Resolve 2018-07-23 Vonnie deficit ion d 07-14 11:15:00 [place] needing 09:18: [id number] supervision 00 Pain frequent Pain Mgmt Active Vonnie pain 07-17 [place] 09:40: [id number] 00 Nutrition knowledge/s Nutrition Resolve 2018-07-23 Vonnie kill d 07-17 11:15:00 [place] deficit: cg 09:40: [id number] 00 Medication injectable Meds Unknown Vonnie med 07-17 [place] assistance 09:40: [id number] required 00 Respiratory bloody Respirator Resolve 2018-2018-07-27 Vonnie sputum y d 6 09:00:00 [place] 09:07: [id number] 00 Respiratory dyspnea Respirator Resolve 2018-07-27 Catia [...] 09:00: 00 Respiratory CPAP Respirator Resolve 2018-2018-07-27 Catai sánchez y d 07-24 09:00:00 [place] in [...] d 6-10 09:00:00 [place] deficit: pt 09:00: [id number] 00 Nutrition nutritional Nutrition Resolve 2018-2018-07-31 Vonnie restriction d 6-10 09:00:00 [place] s 09:00: [id number] 00 Cardio pacemaker/I Cardiovasc Resolve 2018-2018-07-31 Catia CINTRON ular d 6-14 09:00:00 [place] 09:00: 00 Respiratory CPAP Respirator Resolve 2018-07-31 Catia treatments y d 6-14 09:00:00 [place] in home 09:00: 00 Medication oral med Meds Resolve 2018-08-03 Catia assistance d 6-14 09:00:00 [place] required 09:00: 00 Nutrition knowledge/s Nutrition Unknown Roslyn kill 6-14 [place] deficit: pt 10:00: [id number] 00 Nutrition knowledge/s Nutrition Resolve 2018-08-07 Roslyn kill d 6-14 10:00:00 [place] deficit: cg 10:00: [id number] 00 Nutrition nutritional Nutrition Unknown Roslyn restriction 6-14 [place] s 10:00: [id number] 00 Safety can be left Safety Resolve 2018-08-07 Roslyn alone for d 6-14 10:00:00 [place] only short 10:00: [id number] periods 00 Nutrition knowledge/s Nutrition Unknown Catia kill 6-14 [place] deficit: pt 10:30: 00 Nutrition nutritional Nutrition Unknown Catia restriction 6-14 [place] s 10:30: 00 Respiratory CPAP Respirator Resolve 2018-08-07 Vonnie treatments y d 6-17 10:00:00 [place] in home 09:00: [id number] 00 Nutrition knowledge/s Nutrition Resolve 2018-08-07 Vonnie kill d 6-17 10:00:00 [place] deficit: pt 09:00: [id number] 00 Nutrition nutritional Nutrition Resolve 2018-08-07 Vonnie restriction d 6-17 10:00:00 [place] s 09:00: [id number] 00 Cardio pacemaker/I Cardiovasc Resolve 2018-08-10 Catia [...] factor d 08-14 09:00:00 Thomas present 09:00: [id number] 00 Safety fire risk Safety Resolve 2018-08-28 Jennifer Baum present d 08-14 09:00:00 Thomas 09:00: [id number] 00 Safety risk for Safety Resolve 2018-08-28 Jennifer Baum hospitaliza d 08-14 09:00:00 Thomas tion 09:00: [id number] 00 Medication oral med Meds Resolve 2018-08-14 Ctaia assistance d 08-14 09:00:00 [place] required 09:00: 00 Cardio pacemaker/I Cardiovasc Resolve 2018-2018-08-28 Catia blackar d 08-21 09:00:00 [place] 09:00: 00 Medication oral med Meds Resolve 2018-2018-08-28 Catia assistance d 7 09:00:00 [place] required 09:00: 00 Elimination nausea/vomi Eliminatio Resolve 2018-09-04 Catia bass n d 08-28 09:45:00 [place] 09:00: 00 Safety risk for [facility] 09:45: [id number] 00 Cardio pacemaker/I Cardiovasc Resolve 2018-09-11 Catia [...] Vonnie wilhelm d 09-18 10:20:00 [place] 10:00: [id number] 00 Safety risk for Safety Resolve 2018-09-18 Vonnie hospitaliza d 09-18 10:00:00 [place] tion 10:00: [id number] 00 Cardio chest pain Cardiovasc Resolve 2018-09-25 Vonnierea wilhelm d 09-25 10:10:00 [place] 10:10: [id number] 00 Cardio knowledge/s Cardiovasc Resolve 2018-09-25 Vonnie chance wilhelm d 09-25 10:10:00 [place] deficit: cg 10:10: [id number] 00 Neuro memory Neuro/Emot Resolve 2018-10-23 Vonnie deficit ion d 09-25 09:00:00 [place] needing 10:10: [id number] supervision 00 Safety risk for Safety Resolve 2018-09-25 Vonnie hospitaliza d 09-25 10:10:00 [place] tion 10:10: [id number] 00 Neuro depressive Neuro/Emot Resolve 2018-10-23 Catia feelings ion d 10-02 09:00:00 [place] present 09:00: 00 Safety risk for Safety Resolve 2018 Catia hospitaliza d 10-02 09:00:00 [place] tion 09:00: 00 Safety risk for Safety Resolve 2018-10-09 Vonnie hospitaliza d 10-06 10:20:00 [place] tion 11:40: [id number] 00 Elimination nausea/vomi Eliminatio Resolve 2018-10-16 Catia [...] FEDE: Active [facility] kill Social 10-28 [facility] deficit - Services 16:15: [id number] pt 00 Cardio pacemaker/I Cardiovasc Resolve 2018-10-30 [...] 15:00: 00 Respiratory CPAP Respirator Resolve 2018-022018-12-18 Catai treatments y d 0-30 11:00:00 [place] in [...] 2018-02 Roslyn hospitaliza 02-21 [place] tion 10:15: [id number] 00 Safety sanitation Safety Resolve 2018-022018-12-30 Janet hazards d 1-05 10:00:00 Chaudhari present 15:10: [id number] 00 Safety fall risk Safety Resolve 2018-022018-12-24 Janet factor d 105 09:00:00 Chaudhari present 15:10: [id number] 00 Respiratory oxygen Respirator Resolve 2018-022018-12-30 Catia [...] restriction d 03-13 08:00:00 [place] s 15:30: [id number] 00 Respiratory oxygen Respirator Resolve 2018-022019-01-15 Catia [...] 11:55: 00 Respiratory oxygen Respirator Resolve 2018-022019-02-05 Caita treatments y d 2-20 08:30:00 [place] in [...] 2018-02 Roslyn restriction 2-20 [place] s 10:15: [id number] 00 Cardio pacemaker/I Cardiovasc Resolve 2018-022019-02-19 Catia [...] 2017-05 Massiel Unknown -11 (Maria G) Shaun [id number] IVP DYE Unknown Active Unknown Reaction 2017-05 Massiel Unknown -11 (Maria G) Shaun [id number] Medications Ordered Filled Start Stop Current Ordering [...] Unknown Unknown mcg/actuati mcg/actuati 06-25 MD,Qutaybe on Moro on Moro h Cipro 500 Cipro 500 2018- No [...] Observation Time Observation Value Comments SYSTOLIC mm[Hg] 2019-04-22 18:10:43 150 mm[Hg] mm[Hg] Method: Sit SYSTOLIC mm[Hg] 2019-04-14 18:10:35 114 mm[Hg] mm[Hg] Method: Stand DIASTOLIC mm[Hg] 2019-04-22 18:10:43 70 mm[Hg] mm[Hg] Method: Sit DIASTOLIC mm[Hg] 2019-04-14 18:10:35 70 mm[Hg] mm[Hg] Method: Stand PULSE 2019-04-22 18:10:43 96 /min /min RESP RATE 2019-04-22 18:10:43 16 /min /min TEMP 2019-04-22 18:10:43 97.6 [degF] Procedures This patient has no known procedures. Results This patient has no known results.
--- OUTSIDE RECORDS SUMMARY | 2019-05-13 12:14 | XMS REPORT | Continuity of Care Document ---
:1960 External Reference #:[id number] Author Name Kishor Marrufo MD Address [address] [place] [id number] Care Team Providers Name Role Phone Erasmo Hill MD - Family Medicine Care Team Information [facility] [phone] Problems Active Problems Provider Date Alcoholic cirrhosis [...] CPT Code Status Date Vaccine Lot # [id number] Given 05/01/2014 Pneumovax Vital Signs Date Vital [...] Facility Test Result H/L Range Note CBC W/Auto 03/31/2019 [facility] [place] White Blood 8.5 10^3/uL Normal 3.5-10.8 Differential(! Count ) Red Blood Count 5.09 10^6/uL Normal 4.18-5.48 [...] Egfr Non- 39.7 >60 Egfr 48.0 >60 1 Glucose 519 mg/dL Critical high 70-100 2 CBC W/Auto 01/27/2019 [facility] White Blood 9.7 [...] Egfr Non- 41.3 >60 Egfr 50.0 >60 3 Laboratory test finding 01/27/2019 [facility] Inr 1.12 High 0.82-1.09 4 1 Because ethnic data is not always [...] failure <15 (or dialysis) 2 Critical Result [id number] MARRUFO at: 15:59:30 by:[id number] Read back by:DR MARRUFO 3 Because ethnic data is not always [...] 5 Kidney failure <15 (or dialysis) 4 Standard intensity warfarin therapeutic range: 2.0-3.0 High intensity warfarin therapeutic range: 2.5-3.5 Procedures Description No Information Available Medical Devices Description No Information Available Encounters Type Date Location Provider Dx Diagnosis Office Visit 01/27/2019 [facility]enter[facility] Kishor [place] K70.31 [facility]olic [facility] cirrhosis of liver with ascites [...] to look for varices; will arrange at [facility] [place] re: oxygen use Functional Status Description No Information Available Mental Status Description No Information Available Referrals Description No Information Available
--- OUTSIDE RECORDS SUMMARY | 2019-05-13 12:14 | XMS REPORT ---
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 Active Catia (current) (current) [place] use [...] 11:00: 00 Neuro confusion Neuro/Emot Resolve 2018-03-27 Caita present ion d - 13:00:00 [place] 11:00: [...] 10:00:00 [place] deficit: cg 11:00: 00 Balance/End balance/oncology coordinator PT/OT: Resolve 2018-12-29 Catia yousif rdination [...] 02-25 17:15:00 [place] sigala device ransfer 14:50: [id number] present 00 Bed transfer PT/OT: Bed Resolve 2018-12-29 Deejay Mobility/Tr deficit: Mobility/T d 02-25 17:15:00 [place] sigala toilet/comm ransfer 14:50: [id number] ode 00 Bed transfer PT/OT: Bed Resolve 2018-12-29 Deejay Mobility/Tr deficit: Mobility/T d 02-25 17:15:00 [place] sigala shower/tub ransfer 14:50: [id number] 00 Bed knowledge/s PT/OT: Bed Resolve 2018-12-29 Deejay Mobility/Tr kill Mobility/T d 02-25 17:15:00 [place] sigala deficit: pt ransfer 14:50: [id number] 00 Balance/End knowledge/s PT/OT: Resolve 2018-12-29 Deejay yousif kill Balance/En d 02-25 17:15:00 [place] deficit: pt durance 14:50: [id number] 00 Environment knowledge/s PT/OT: Resolve 2018-12-29 Deejay hennessy kill Environmen d 02-25 17:15:00 [place] deficit: pt t 14:50: [id number] 00 Environment environment PT/OT: Resolve 2018-12-29 Deejay hennessy al barriers Environmen d 02-25 17:15:00 [place] t 14:50: [id number] 00 Gait/Locomo gait PT/OT: Resolve 2018-12-29 Deejay tisimran assistive Gait/Locom d 02-25 17:15:00 [place]air[place] problems device otion 14:50: [id number] present 00 Gait/Locomo knowledge/s PT/OT: Resolve 2018-12-29 Deejay ocampo kill Gait/Locom d 02-25 17:15:00 Garibay problems deficit: pt otion 14:50: [id number] 00 Cardio edema Cardiovasc Resolve 2018-05-27 Catia ular d 208 10:00:00 [place] 13:00: 00 Cardio pacemaker/I Cardiovasc Resolve 2018-05-27 Catia CINTRON ular d 03-27 10:00:00 [place] 13:00: 00 Respiratory asthma Respirator Resolve 2018-03-27 Catia y d 03-27 13:00:00 [place] 13:00: 00 Neuro knowledge/s Neuro/Emot Resolve 2018-03-27 Catia kill ion d 03-27 13:00:00 [place] deficit: pt 13:00: 00 Activity self-care Activity Resolve 2018-05-27 Ctaia deficit d 03-27 10:00:00 [place] 13:00: 00 [...] d 2- 10:00:00 [place] deficit: pt 09:50: [id number] 00 Cardio knowledge/s Cardiovasc Resolve 2018-05-27 Vonnie kill ular d 2 10:00:00 [place] deficit: cg 09:50: [id number] 00 Respiratory lung sounds Respirator Resolve 2018-04-17 Vonnie deficit y d 2 09:00:00 [place] 09:50: [id number] 00 Medication oral med Meds Resolve 2018-04-24 [...] d 4- 09:00:00 [place] deficit: pt 10:00: [id number] 00 Social knowledge/s FEDE: Resolve 2018-2018-05-21 [facility] kill Social d 4- 10:00:00 [place] deficit - Services 10:00: [id number] pt 00 Social knowledge/s FEDE: Resolve 2018-2018-05-21 [facility] kill Social d 4- 10:00:00 [place] deficit - Services 10:00: [id number] cg 00 24 Hr Diet nutrition NT: 24Hr Active Silvana intake Diet 05-22 Wilbur deficit 09:50: [id number] 00 24 Hr Diet knowledge/s NT: 24Hr Resolve 2018-05-22 Silvana kill Diet d 05-22 09:50:00 [place] deficit - 09:50: [id number] pt 00 Nutritional food NT: Resolve 2018-05-22 Silvana Barrier storage/pre Barriers d 05-22 09:50:00 Wilbur p deficit 09:50: [id number] 00 Respiratory lung sounds Respirator Resolve 2018-05-27 Vonnie deficit y d 05-25 10:00:00 [place] 09:10: [id number] 00 Respiratory nebulizer Respirator Resolve 2018-05-27 Vonnie treatment y d 05-25 10:00:00 [place] in home 09:10: [id number] 00 Neuro impaired Neuro/Emot Resolve 2018-06-19 Catia toscano-ma ion d 05-27 09:00:00 Sherman addison 10:00: 00 Test/Treatm tests Test/Injec Resolve 2018-06-09 Vonnie ent ordered t/Chele d 05-28 09:05:00 [place] [id number] Cardio knowledge/s Cardiovasc Resolve 2018-06-06 Catia blackar [...] present y d 4-15 09:00:00 [place] 09:00: [id number] 00 Respiratory oxygen Respirator Resolve 2018-06-10 Vonnie treatments y d 4-15 09:00:00 [place] in home 09:00: [id number] 00 Respiratory lung sounds Respirator Resolve 2018-06-06 Vonnie deficit y d 4-15 12:00:00 [place] 09:00: [id number] 00 Endo/Viktor diabetic Endo/Viktor Resolve 2018-06-06 Catia [...] d 06-08 09:00:00 [place] deficit: pt 10:35: [id number] 00 24 Hr Diet nutrition NT: 24Hr Unknown Silvana intake Diet 06-08 Wilbur deficit 10:40: [id number] 00 24 Hr Diet knowledge/s NT: 24Hr Resolve 2018-06-08 Silvana kill Diet d 06-08 10:40:00 [place] deficit - 10:40: [id number] pt 00 Respiratory lung sounds Respirator Resolve 2018-06-10 Vonnie deficit y d 06-09 09:00:00 [place] 09:05: [id number] 00 Musculoskel requires Musculoske Resolve 2018-06-10 Vonnie etal human letal d 06-09 09:00:00 [place] assist to 09:05: [id number] leave home 00 Cardio edema Cardiovasc Resolve [...] d 06-11 10:20:00 [place] deficit: cg 10:00: [id number] 00 Nutrition changing Nutrition Resolve 2018-06-26 Catia weight/appe d 06-12 08:30:00 [place] tite 10:20: 00 Nutrition knowledge/s Nutrition Resolve 2018-06-12 Catia kill d 06-12 10:20:00 [place] deficit: pt 10:20: 00 Cardio edema Cardiovasc Resolve 2018-06-17 Vonnierea wilhelm d 06-15 09:00:00 [place] 09:15: [id number] 00 Cardio pacemaker/I Cardiovasc Resolve 2018-06-17 Vonnierea CINTRON ular d 06-15 09:00:00 [place] 09:15: [id number] 00 Respiratory dyspnea Respirator Resolve 2018-06-17 Vonnie present y d 06-15 09:00:00 [place] 09:15: [id number] 00 Respiratory oxygen Respirator Resolve 2018-06-19 Vonnie treatments y d 06-15 09:00:00 [place] in home 09:15: [id number] 00 Respiratory lung sounds Respirator Resolve 2018-06-17 Vonnie deficit y d 06-15 09:00:00 [place] 09:15: [id number] 00 Nutrition knowledge/s Nutrition Resolve 2018-06-17 Vonnie kill d 06-15 09:00:00 [place] deficit: pt 09:15: [id number] 00 Sensory impaired Sensory Resolve 2018-06-22 Catia [...] NT: 24Hr Unknown Silvana intake Diet 5- Wilbur deficit 15:30: [id number] 00 24 Hr Diet knowledge/s NT: 24Hr Resolve 2018-06-18 Silvana kill Diet d 5- 15:30:00 [place] deficit - 15:30: [id number] pt 00 Nutrition knowledge/s Nutrition Resolve 2018-06-19 Catia kill d 06-19 09:00:00 [place] deficit: pt 09:00: 00 Safety can be left Safety Resolve 2018-06-26 Catia alone for d 06-19 08:30:00 [place] only short 09:00: periods 00 Medication oral med Meds Resolve 2018-06-19 Catia assistance d 06-19 09:00:00 [place] required 09:00: 00 Cardio edema Cardiovasc Resolve 2018-06-26 Vonnie wilhelm d 06-22 08:30:00 [place] 09:15: [id number] 00 Cardio knowledge/s Cardiovasc Resolve 2018-07-24 Vonnieajith fletcher ular d 06-22 09:00:00 [place] deficit: pt 09:15: [id number] 00 Cardio pacemaker/I Cardiovasc Resolve 2018-06-26 Vonnierea CINTRON ular d 06-22 08:30:00 [place] 09:15: [id number] 00 Nutrition knowledge/s Nutrition Resolve 2018-06-24 Vonnie kill d 06-22 11:00:00 [place] deficit: pt 09:15: [id number] 00 Nutrition knowledge/s Nutrition Resolve 2018-06-24 Vonnie kill d 06-22 11:00:00 [place] deficit: cg 09:15: [id number] 00 Neuro impaired Neuro/Emot Resolve 2018-06-26 Vonnie decision-ma ion d 06-22 08:30:00 [place] addison 09:15: [id number] 00 Neuro knowledge/s Neuro/Emot Resolve 2018-06-22 Vonnie kill ion d 06-22 09:15:00 [place] deficit: pt 09:15: [id number] 00 Neuro knowledge/s Neuro/Emot Resolve 2018-06-24 Vonnie kill ion d 06-23 11:00:00 [place] deficit: pt 09:30: [id number] 00 Social financial FEDE: Active [facility] resource Social 06-23 [place] deficit Services 09:45: [id number] 00 Social knowledge/s FEDE: Resolve 2018-06-23 [facility] kill Social d 06-23 [facility]:45[facility] 09[facility]: [id number] pt 00 Respiratory oxygen Respirator Resolve 2018-06-26 [...] Vonnie wilhelm d 5-13 16:00:00 [place] 09:30: [id number] 00 Respiratory oxygen Respirator Resolve 2018-07-08 Vonnierea sánchez y d 5-13 16:00:00 [place] in home 09:30: [id number] 00 Nutrition knowledge/s Nutrition Resolve 2018-07-01 Vonnie fletcher d 5-13 10:00:00 [place] deficit: pt 09:30: [id number] 00 Cardio chest pain Cardiovasc Resolve 2018-07-08 Catia wilhelm d 5-15 16:00:00 [place] 10:00: 00 Cardio pacemaker/I Cardiovasc Resolve 2018-07-08 Catia wilhelm d -15 16:00:00 [place] 10:00: 00 Social knowledge/s FEDE: Resolve 2018-07-08 Catia Joy kill Social d 5-15 11:00:00 [place] deficit - Services 10:00: pt 00 Nutrition knowledge/s Nutrition Resolve 2018-07-08 Vonnie fletcher d -20 16:00:00 [place] deficit: pt 09:15: [id number] 00 Safety structural Safety Resolve 2018-07-23 Roslyn barriers d 07-08 11:15:00 [place] present 11:00: [id number] 00 Safety sanitation Safety Resolve 2018-07-23 Roslyn hazards d 07-08 11:15:00 [place] present 11:00: [id number] 00 Safety can be left Safety Resolve 2018-07-23 Roslyn alone for d 07-08 11:15:00 [place] only short 11:00: [id number] periods 00 Neuro impaired Neuro/Emot Active Catia antunez 07-08 Sherman jaime 16:00: 00 Medication oral med Meds Resolve 2018-07-10 Catia assistance d 07-08 09:08:00 [place] required 16:00: 00 Medication injectable Meds Unknown Catia med 07-08 [place] assistance 16:00: required 00 Cardio edema Cardiovasc Resolve 2018-07-23 Vonnie ular d 07-10 11:15:00 [place] 09:08: [id number] 00 Cardio pacemaker/I Cardiovasc Resolve 2018-07-23 Vonnie CD ular d 07-10 11:15:00 [place] 09:08: [id number] 00 Respiratory oxygen Respirator Resolve 2018-08-14 Vonnie treatments y d 07-10 09:00:00 [place] in home 09:08: [id number] 00 Respiratory lung sounds Respirator Resolve 2018-07-24 Vonnie deficit y d 07-10 09:00:00 [place] 09:08: [id number] 00 Nutrition knowledge/s Nutrition Resolve 2018-07-23 Vonnie kill d 07-10 11:15:00 [place] deficit: pt 09:08: [id number] 00 Neuro knowledge/s Neuro/Emot Resolve 2018-07-23 Vonnie kill ion d 07-10 11:15:00 [place] deficit: pt 09:08: [id number] 00 Social knowledge/s FEDE: Resolve 2018-09-29 [facility] kill Social d 07-10 10:00:00 [place] deficit - Services 09:08: [id number] pt 00 Neuro memory Neuro/Emot Resolve 2018-07-23 Vonnie deficit ion d 07-14 11:15:00 [place] needing 09:18: [id number] supervision 00 Pain frequent Pain Mgmt Active Vonnie pain 07-17 [place] 09:40: [id number] 00 Nutrition knowledge/s Nutrition Resolve 2018-07-23 Vonnie kill d 07-17 11:15:00 [place] deficit: cg 09:40: [id number] 00 Medication injectable Meds Unknown Ovnnie med 07-17 [place] assistance 09:40: [id number] required 00 Respiratory bloody Respirator Resolve 2018-2018-07-27 Vonnie sputum y d 6 09:00:00 [place] 09:07: [id number] 00 Respiratory dyspnea Respirator Resolve 2018-07-27 Catia [...] d 6-10 09:00:00 [place] deficit: pt 09:00: [id number] 00 Nutrition nutritional Nutrition Resolve 2018-2018-07-31 Vonnie restriction d 6-10 09:00:00 [place] s 09:00: [id number] 00 Cardio pacemaker/I Cardiovasc Resolve 2018-2018-07-31 Catia CINTRON ular d 6-14 09:00:00 [place] 09:00: 00 Respiratory CPAP Respirator Resolve 2018-07-31 Catia treatments y d 6-14 09:00:00 [place] in home 09:00: 00 Medication oral med Meds Resolve 2018-08-03 Catia assistance d 6-14 09:00:00 [place] required 09:00: 00 Nutrition knowledge/s Nutrition Unknown Roslyn kill 6-14 [place] deficit: pt 10:00: [id number] 00 Nutrition knowledge/s Nutrition Resolve 2018-08-07 Roslyn kill d 6-14 10:00:00 [place] deficit: cg 10:00: [id number] 00 Nutrition nutritional Nutrition Unknown Roslyn restriction 6-14 [place] s 10:00: [id number] 00 Safety can be left Safety Resolve 2018-08-07 Roslyn alone for d 6-14 10:00:00 [place] only short 10:00: [id number] periods 00 Nutrition knowledge/s Nutrition Unknown Catia kill 6-14 [place] deficit: pt 10:30: 00 Nutrition nutritional Nutrition Unknown Catia restriction 6-14 [place] s 10:30: 00 Respiratory CPAP Respirator Resolve 2018-08-07 Vonnie treatments y d 6-17 10:00:00 [place] in home 09:00: [id number] 00 Nutrition knowledge/s Nutrition Resolve 2018-08-07 Vonnie kill d 6-17 10:00:00 [place] deficit: pt 09:00: [id number] 00 Nutrition nutritional Nutrition Resolve 2018-08-07 Vonnie restriction d 6-17 10:00:00 [place] s 09:00: [id number] 00 Cardio pacemaker/I Cardiovasc Resolve 2018-08-10 Catia [...] factor d 08-14 09:00:00 Thomas present 09:00: [id number] 00 Safety fire risk Safety Resolve 2018-08-28 Jennifer Baum present d 08-14 09:00:00 Thomas 09:00: [id number] 00 Safety risk for Safety Resolve 2018-08-28 Jennifer Baum hospitaliza d 08-14 09:00:00 Thomas tion 09:00: [id number] 00 Medication oral med Meds Resolve 2018-08-14 Catia assistance d 08-14 09:00:00 [place] required 09:00: 00 Cardio pacemaker/I Cardiovasc Resolve 2018-2018-08-28 Catia blackar d 08-21 09:00:00 [place] 09:00: 00 Medication oral med Meds Resolve 2018-2018-08-28 Catia assistance d 7 09:00:00 [place] required 09:00: 00 Elimination nausea/vomi Eliminatio Resolve 2018-09-04 Catia bass n d 08-28 09:45:00 [place] 09:00: 00 [facility]: [id number] 00 Cardio pacemaker/I Cardiovasc Resolve 2018-09-11 Catia [...] Vonnie wilhelm d 09-18 10:20:00 [place] 10:00: [id number] 00 Safety risk for Safety Resolve 2018-09-18 Vonnie hospitaliza d 09-18 10:00:00 [place] tion 10:00: [id number] 00 Cardio chest pain Cardiovasc Resolve 2018-09-25 Vonnierea wilhelm d 09-25 10:10:00 [place] 10:10: [id number] 00 Cardio knowledge/s Cardiovasc Resolve 2018-09-25 Vonnie chance wilhelm d 09-25 10:10:00 [place] deficit: cg 10:10: [id number] 00 Neuro memory Neuro/Emot Resolve 2018-10-23 Vonnie deficit ion d 09-25 09:00:00 [place] needing 10:10: [id number] supervision 00 Safety risk for Safety Resolve 2018-09-25 Vonnie hospitaliza d 09-25 10:10:00 [place] tion 10:10: [id number] 00 Neuro depressive Neuro/Emot Resolve 2018-10-23 Catia feelings ion d 10-02 09:00:00 [place] present 09:00: 00 Safety risk for Safety Resolve 2018 Catia hospitaliza d 10-02 09:00:00 [place] tion 09:00: 00 Safety risk for Safety Resolve 2018-10-09 Vonnie hospitaliza d 10-06 10:20:00 [place] tion 11:40: [id number] 00 Elimination nausea/vomi Eliminatio Resolve 2018-10-16 Catia longo d 10-09 09:00:00 [place] 10:20: 00 Cardio pacemaker/I Cardiovasc Resolve 2018-10-23 Catia wilhelm d 10-16 09:00:00 [place] 09:00: 00 Safety fall risk Safety Resolve 2018-10-16 Catia martin d 10-16 09:00:00 [place] present 09:00: 00 Safety risk for Safety Resolve 2018-10-16 Catai fraseriztomasz d 10-16 09:00:00 [place] tion 09:00: 00 Musculoskel transfer Musculoske Resolve 2018-10-23 Catia bearl assistance letal d 10-16 09:00:00 [place] required 09:00: 00 Safety risk for Safety Resolve 2018-10-23 Catia hospitaliza d 10-23 09:00:00 [place] tion 09:00: 00 Social knowledge/s FEDE: Active [facility] kill Social 10-28 [facility] deficit - Services 16:15: [id number] pt 00 Cardio pacemaker/I Cardiovasc Resolve 2018-10-30 [...] 2018-02 [facility] hospital[facility] 02-21 [place] tion 10:15: [id number] 00 Safety sanitation Safety Resolve 2018-022018-12-30 Janet hazards d 1-05 10:00:00 Chaudhari present 15:10: [id number] 00 Safety fall risk Safety Resolve 2018-022018-12-24 Janet factor d 105 09:00:00 Chaudhari present 15:10: [id number] 00 Respiratory oxygen Respirator Resolve 2018-022018-12-30 Catia [...] restriction d 03-13 08:00:00 [place] s 15:30: [id number] 00 Respiratory oxygen Respirator Resolve 2018-022019-01-15 Catia [...] 2018-02 Roslyn restriction 2-20 [place] s 10:15: [id number] 00 Cardio pacemaker/I Cardiovasc Resolve 2018-022019-02-19 Catia [...] s 11:00: 00 Safety fall risk Safety Active Catia factor 04-14 [place] present 11:00: 00 Musculoskel transfer Musculoske Active Catia etal assistance letal 04-14 [place] required 11:00: 00 Neuro depressive Neuro/Emot Active Catia feelings ion 3-05 [place] present 09:00: 00 Allergies, Adverse Reactions, Alerts Allergy Allergy Status Severity Reaction(s) Onset Inactive Treating Comments Name Type Date Date Clinician shellfish Unknown Active Unknown Reaction 2017-05 Massiel Unknown -11 (Amria G) Shaun [id number] IVP DYE Unknown Active Unknown Reaction 2017-05 Massiel Unknown -11 (Maria G) Shaun [id number] Medications Ordered Filled Start Stop Current Ordering Indication Dosage Frequency Signature Comments Components Medication Medication Date Date Medication? Clinician (SIG) Name Name albuterol albuterol No Midura 1 puffs Unknown sulfate HFA sulfate HFA MDErasmo 90 90 mcg/actuati mcg/actuati on aerosol on aerosol inhaler inhaler lisinopril lisinopril No Midura 2.5 mg Unknown 2.5 mg 2.5 mg MDErasmo tablet tablet omeprazole omeprazole No Midura 20 mg Unknown 20 mg 20 mg MDErasmo capsule,del capsule,del ayed ayed release release gabapentin gabapentin No Midura 300 mg Unknown 300 mg 300 mg ,Erasmo capsule capsule Symbicort Symbicort No Midura 2 puffs Unknown 160 mcg-4.5 160 mcg-4.5 MDErasmo mcg/actuati mcg/actuati on HFA on HFA aerosol aerosol inhaler inhaler cetirizine cetirizine No Midura 10 mg Unknown 10 mg 10 mg MD,Erasmo tablet tablet atorvastati atorvastati No Midura 80 mg Unknown n 80 mg n 80 mg MD,Erasmo tablet tablet magnesium magnesium No Midura 400 mg Unknown oxide 400 oxide 400 MD,Erasmo mg (241.3 mg (241.3 mg mg magnesium) magnesium) tablet tablet nitroglycer nitroglycer No Midura 1 Unknown in 0.4 mg in 0.4 mg MD,Erasmo tablet sublingual sublingual tablet tablet dilTIAZem dilTIAZem [...] metoprolol No Midura Unknown Unknown succinate succinate - Erasmo ANDERSON ER 25 mg ER 25 mg tablet,exte tablet,exte nded nded release 24 release 24 hr hr lisinopril lisinopril 2018- No Midura Unknown Unknown 2.5 mg 2.5 mg 02-19- Erasmo ANDERSON tablet tablet dilTIAZem dilTIAZem No Midura Unknown Unknown 30 mg 30 mg 02-19 Erasmo ANDERSON tablet tablet Janumet 50 Janumet 50 No Midura Unknown Unknown mg-1,000 mg mg-1,000 mg 02-19 Erasmo ANDERSON tablet tablet Xarelto 20 Xarelto 20 2018- No Midura Unknown Unknown mg tablet mg tablet 02-19 MD,Erasmo gabapentin gabapentin 2018- No Midura Unknown Unknown 300 mg 300 mg 02-19 MD,Erasmo capsule capsule cetirizine cetirizine No Midura Unknown Unknown 10 mg 10 mg 02-19 MD,Erasmo tablet tablet spironolact spironolact 2018- No Midura Unknown Unknown one 25 mg one 25 mg 02-19 MD,Erasmo tablet tablet Symbicort Symbicort No Midura Unknown Unknown 80 mcg-4.5 80 mcg-4.5 02-19 MD,Erasmo mcg/actuati mcg/actuati on HFA on HFA aerosol aerosol inhaler inhaler ferrous ferrous 2018- No Midura Unknown Unknown sulfate 325 sulfate 325 02-19 MD,Erasmo mg (65 mg mg (65 mg iron) iron) tablet,belkys tablet,belkys yed release yed release lactulose lactulose 2018- No Midura Unknown Unknown 20 gram/30 20 gram/30 02-19 02 MD,Erasmo mL oral mL oral solution solution potassium [...] Maalox No Midura Unknown Unknown Maximum Maximum 1- MD,Erasmo Strength Strength 400 mg-400 400 mg-400 mg-40 mg/5 mg-40 mg/5 mL oral mL oral suspension suspension Colace 100 Colace 100 2018- No Midura Unknown Unknown mg capsule mg capsule 02-19- ,Erasmo albuterol albuterol 2018- No Midura Unknown Unknown sulfate HFA sulfate HFA 02-19- ,Erasmo 90 90 mcg/actuati mcg/actuati on aerosol on aerosol inhaler inhaler Nitrostat Nitrostat No Midura Unknown Unknown 0.4 mg 0.4 mg 02-19 Erasmo ANDERSON sublingual sublingual tablet tablet Tylenol Tylenol No Midura Unknown Unknown Extra Extra - ,Erasmo Strength Strength 500 mg 500 mg tablet tablet Colace 100 Colace 100 2018- No Midura Unknown Unknown mg capsule mg capsule 02-19- Erasmo ANDERSON albuterol albuterol No Midura Unknown Unknown sulfate HFA sulfate HFA 02-19 ,Erasmo 90 90 mcg/actuati mcg/actuati on aerosol on aerosol inhaler inhaler ferrous ferrous 2018- No Midura Unknown Unknown sulfate 325 sulfate 325 02-27- MD,Erasmo mg (65 mg mg (65 mg iron) iron) tablet,belkys tablet,belkys yed release yed release magnesium magnesium No Midura Unknown Unknown oxide 400 oxide 400 - MD,Erasmo mg (241.3 mg (241.3 mg mg magnesium) magnesium) tablet tablet lactulose lactulose No Midura Unknown Unknown 20 gram/30 20 gram/30 2-20 MD,Erasmo mL oral mL oral solution solution furosemide furosemide No Bhargavi Unknown Unknown 20 mg 20 mg 04-24 CHERELLE Sheikh tablet tablet furosemide furosemide 2018- No Maghaydah Unknown Unknown 20 mg 20 mg 04-24- MD,Qutaybe tablet tablet h torsemide torsemide 2018- No Maghaydah Unknown Unknown 20 mg 20 mg 04-29- MD,Qutaybe tablet tablet h Lasix 20 mg Lasix 20 mg 2018- No Maghaydah Unknown Unknown tablet tablet 05-05 MD,Qutaybe h cephALEXin cephALEXin 2018- Midura Unknown Unknown 500 mg 500 mg 05-06 MD,Erasmo capsule capsule triamcinolo triamcinolo 2018- No Midura Unknown Unknown ne ne 05-0618 MD,Erasmo acetonide acetonide 0.1 % 0.1 % topical topical cream cream Lasix 20 mg Lasix 20 mg Maghaydah Unknown Unknown tablet tablet 05-07 MD,Qutaybe h Lasix 20 mg Lasix 20 mg No Maghaydah Unknown Unknown tablet tablet 05-07 MD,Qutaybe h furosemide furosemide 2018- Maghaydah Unknown Unknown [...] Midura Unknown Unknown sulfate 325 sulfate 325 05-1419 MD,Erasmo mg (65 mg mg (65 mg iron) iron) tablet,belkys tablet,belkys yed release yed release Oxygen Oxygen 2018- Midura Unknown Unknown 05-15 0913 MD,Erasmo zinc zinc No Midura Unknown Unknown sulfate 220 sulfate 220 05-14 05 MD,Erasmo mg tablet mg tablet furosemide furosemide 2018- Maghaydah Unknown Unknown 40 mg 40 mg 05-1411 MD,Qutaybe tablet tablet h Lasix 40 mg Lasix 40 mg 2019-0 2019- No Maghaydah Unknown Unknown tablet tablet 05-27- ,Meg man bumetanide bumetanide 2018- No Maghaydah Unknown Unknown 1 mg tablet 1 mg tablet 05-28 MD,Jenisetaybe h bumetanide bumetanide 2018- No Maghaydah Unknown Unknown 1 mg tablet 1 mg tablet 06-01 MD,Yessye h bumetanide bumetanide 2018- No Maghaydah Unknown Unknown 1 mg tablet 1 mg tablet 05-29 MD,Qutaybe h torsemide torsemide 2018- No Midura Unknown Unknown 20 mg 20 mg 06-05 Erasmo ANDERSON tablet tablet patiromer patiromer 2018- No Kardon Unknown Unknown calcium calcium 06-05 ,Driss sorbitex sorbitex 8.4 gram 8.4 gram oral powder oral powder packet packet zinc oxide zinc oxide No Midura Unknown Unknown 16 % 16 % 06-07 Erasmo ANDERSON topical topical ointment ointment torsemide torsemide 2018- [...] Unknown Unknown 20 mg 20 mg 06-23 05-10 MD,Qutaybe tablet tablet h torsemide torsemide 2018- No Maghaydah Unknown Unknown 20 mg 20 mg 06-26- MD,Qutaybe tablet tablet h torsemide torsemide 2018- No Maghaydah Unknown Unknown 20 mg 20 mg 06-29 06-04 MD,Qutaybe tablet tablet h Nasonex 50 Nasonex 50 No Maghaydah Unknown Unknown mcg/actuati mcg/actuati - MD,Qutaybe on [place] h Cipro 500 Cipro 500 2018- No Midura Unknown Unknown mg tablet mg tablet 07-03- MD,Erasmo torsemide torsemide 2018- No Maghaydah Unknown [...] Midura Unknown Unknown 0.5 mg 0.5 mg 10-2724 MD,Erasmo tablet tablet Oxygen Oxygen No Midura Unknown Unknown - MD,Erasmo ferrous ferrous No Midura Unknown Unknown sulfate 325 sulfate 325 - MD,Erasmo mg (65 mg mg (65 mg [...] n 250 mg n 250 mg 02-23 ,Erasmo tablet tablet metOLazone metOLazone 2018-02- No Maghaydah Unknown Unknown 2.5 mg 2.5 mg 03-08 MD,Qutaybe tablet tablet h metOLazone metOLazone 2018-02 Yes Maghaydah Unknown Unknown 2.5 mg 2.5 mg 04-04 MD,Qutaybe tablet tablet h traZODone traZODone 2018-02- Yes Midura Unknown Unknown 50 mg 50 mg 04-09 ,Erasmo tablet tablet glimepiride glimepiride Yes Midura Unknown Unknown 2 mg tablet 2 mg tablet 03-31 ,Erasmo ciprofloxac ciprofloxac 2019- Yes Midura Unknown Unknown in 500 mg in 500 mg 04-08 ,Erasmo tablet tablet Vital Signs Vital Name Observation [...]
--- OUTSIDE RECORDS SUMMARY | 2019-05-13 12:14 | XMS REPORT | Continuity of Care Document ---
:1960 External Reference #:[id number] Author Name [facility] Pacer Schedule (transmitted by agent of provider Brittney Coleman) Address [address] [place] [address] Care Team Providers Name Role Phone Erasmo Hill MD - Family Medicine Care Team Information Community Life Director Problems Active Problems Provider Date Chest pain Timmy German M.D. Onset: 06/04/2011 Electrocardiogram abnormal Timmy German M.D. Onset: 06/04/2011 Benign essential hypertension Timmy German M.D. Onset: 06/04/2011 Hyperlipidemia Timmy German M.D. Onset: 06/04/2011 Automatic implantable cardiac Timmy German M.D. Onset: 06/04/2011 defibrillator in situ Coronary arteriosclerosis [facility] Schedule Onset: 07/11/2011 Chronic ischemic heart disease [facility] Schedule Onset: 07/11/2011 Tachycardia Timmy German M.D. Onset: 05/26/2012 Dyspnea Timmy German M.D. Onset: 05/26/2012 Spinal stenosis of lumbar region Leobardo Reynoso M.D. Onset: 10/16/2012 Preoperative cardiovascular Timmy German M.D. Onset: 11/24/2012 examination Arthralgia of the lower leg Edmund Jasso M.D. 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 03/18/2018 Strength prn Etelvina German [phone] Suspension Lactulose 30 ml po bid 1500ml [...] German 25mg Tablets ER 24HR Nasonex 1 [place] Jon Each 1Mon Qutaybeh S. 02/04/2008 50mcg/Act [...] % Supplemental oxygen at 2 pulse, portable [employer] [facility] [place] BMI (Body Mass Index) 27.9 kg/m2 Results Test Acquired Date Facility Test Result H/L Range Note CBC Auto 01/05/2019 [facility] White Blood 7.5 10^3/uL Normal 3.5-10.[address] [place] [address] [phone] Red Blood Count 4.76 10^6/uL Normal 4.18-5.48 [...] Blood Cells % 0.0 Laboratory test 01/05/2019 [facility] B-Type 162 pg/mL High <= [address] [place] [address] Peptide BNP [phone] Basic Metabolic 01/05/2019 [facility] Sodium 133 Low 135-[address] mmol/L [place], [place] [id number] [phone] Potassium 4.8 mmol/L Normal 3.5-5.0 Chloride 93 [...] (or dialysis) Procedures Date Code Description Status 01/12/2019 69696 Icd eval w/iterative adjment single lead Icd Completed 01/12/2019 93340 Icd eval w/iterative adjment single lead Icd Completed 11/05/2018 32596 Icd Eval With Inerative Adjustmt Dual Lead System Completed 11/05/2018 00016 Icd Eval With Inerative Adjustmt Dual Lead System Completed 04/07/2018 13718583 Colonoscopy Completed Medical Devices Description No Information Available Encounters Type Date Location Provider Dx Diagnosis Office Visit 01/12/2019 [facility] Bhargavi Sheikh, Z95.810 Presence of 1:30p Of [facility] Specialist N.P. automatic (implantable) cardiac defibrillator I50.42 Chronic combined systolic and diastolic hrt fail G47.33 Obstructive sleep apnea (adult) (pediatric) R53.83 Other fatigue I48.91 Unspecified atrial fibrillation I25.10 Athscl heart disease of [place] coronary artery w/o ang pctrs Office Visit 01/05/2019 [facility] G47.33 Obstructive sleep 9:30a [facility] apnea (adult) Hedis Specialist (pediatric) R53.83 Other fatigue R09.02 Hypoxemia Office Visit 12/22/2018 Vishnu Mercado Z95.810 Presence of 2:00p [facility], [facility]. automatic Hedis Specialist (implantable) cardiac defibrillator G47.33 Obstructive sleep apnea (adult) (pediatric) I48.91 Unspecified atrial fibrillation I25.10 Athscl heart disease of [place] coronary artery w/o ang pctrs I50.42 Chronic combined systolic and diastolic hrt fail Office Visit 11/02/2018 [facility] G47.33 Obstructive sleep 10:30a [facility] apnea (adult) [facility]is Specialist (pediatric) R53.83 Other fatigue Assessments Date Code Description Provider 01/12/2019 Z95.810 Presence of automatic (implantable) Timmy German M.D. cardiac defibrillator 01/12/2019 Z95.810 Presence of automatic (implantable) Bhargavi S. Aguilar, N.P. cardiac defibrillator 01/12/2019 Z95.810 Presence of automatic (implantable) [facility] Pacer Schedule cardiac defibrillator 01/12/2019 I50.42 Chronic combined systolic (congestive) Bhargavi S. Aguilar, N.P. and diastolic (conges 01/12/2019 I50.42 Chronic combined systolic (congestive) [facility] Pacer Schedule and diastolic (conges 01/12/2019 G47.33 Obstructive sleep apnea (adult) Bhargavi S. Aguilar, N.P. (pediatric) 01/12/2019 R53.83 Other fatigue Bhargavi S. Aguilar, N.P. 01/12/2019 I48.91 Unspecified atrial fibrillation Bhargavi S. Aguilar, N.P. 01/12/2019 I25.10 Atherosclerotic heart disease of Bhargavi Sheikh, N.P. [place] coronary artery with 01/05/2019 G47.33 Obstructive sleep apnea (adult) Elvia Joshi NP (pediatric) 01/05/2019 R53.83 Other fatigue Elvia Joshi NP 01/05/2019 R09.02 Hypoxemia Elvia Joshi NP 12/22/2018 Z95.810 Presence of automatic (implantable) Bhargavi Sheikh N.P. cardiac defibrillator 12/22/2018 G47.33 Obstructive sleep apnea (adult) Bhargavi Sheikh N.P. (pediatric) 12/22/2018 I48.91 Unspecified atrial fibrillation Bhargavi Sheikh N.P. 12/22/2018 I25.10 Atherosclerotic heart disease of Bhargavi Sheikh N.P. [place] coronary artery with 12/22/2018 I50.42 Chronic combined systolic (congestive) Bhargavi Sheikh N.P. and diastolic (conges 11/05/2018 Z95.810 Presence of automatic (implantable) Timmy German M.D. cardiac defibrillator 11/05/2018 Z95.810 Presence of automatic (implantable) [facility] Pacer Schedule cardiac defibrillator 11/02/2018 G47.33 Obstructive sleep apnea (adult) Elvia Joshi NP (pediatric) 11/02/2018 R53.83 Other fatigue Elvia Joshi NP Plan of Treatment Future Appointment(s):05/18/2019 1:30 pm - Elvia Joshi NP at [facility]05/20/2019 1:20 pm - Timmy German M.D. at [facility]01/12/2019 - Bhargavi Sheikh N.P.Z95.810 Presence of automatic (implantable) cardiac ojytxtklnquvqH91.42 Chronic combined systolic (congestive) and diastolic (congesFollow up:OV 05/2019 QSMRecommendations:Lung sounds decreased on L side. Fluid status looks good Continue current diuretic regimen I will await GI note and if you can stay on xarelto I will send you back to dr lynn for watchman procedure.G47.33 Obstructive sleep apnea (adult) (pediatric)R53.83 Other oexnvisM97.91 Unspecified atrial fibrillationRecommendations:Continue xarelto for now.I25.10 Atherosclerotic heart disease of [place] coronary artery with Functional Status Description No Information Available Mental Status Description No Information Available Referrals Description No Information Available
--- OUTSIDE RECORDS SUMMARY | 2019-05-13 12:14 | XMS REPORT ---
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 PT/OT: Resolve 2018-12-29 Catia yousif rdination [...] 02-25 17:15:00 [place] sigala device ransfer 14:50: [id number] present 00 Bed transfer PT/OT: Bed Resolve 2018-12-29 Deejay Mobility/Tr deficit: Mobility/T d 02-25 17:15:00 [place] sigala toilet/comm ransfer 14:50: [id number] ode 00 Bed transfer PT/OT: Bed Resolve 2018-12-29 Deejay Mobility/Tr deficit: Mobility/T d 02-25 17:15:00 [place] sigala shower/tub ransfer 14:50: [id number] 00 Bed knowledge/s PT/OT: Bed Resolve 2018-12-29 Deejay Mobility/Tr kill Mobility/T d 02-25 17:15:00 [place] sigala deficit: pt ransfer 14:50: [id number] 00 Balance/End knowledge/s PT/OT: Resolve 2018-12-29 Deejay yousif kill Balance/En d 02-25 17:15:00 [place] deficit: pt durance 14:50: [id number] 00 Environment knowledge/s PT/OT: Resolve 2018-12-29 Deejay hennessy kill Environmen d 02-25 17:15:00 [place] deficit: pt t 14:50: [id number] 00 Environment environment PT/OT: Resolve 2018-12-29 Deejay hennessy al barriers Environmen d 02-25 17:15:00 [place] t 14:50: [id number] 00 Gait/Locomo gait PT/OT: Resolve 2018-12-29 Deejay tisimran assistive Gait/Locom d 02-25 17:15:00 Garibay problems device otion 14:50: [id number] present 00 Gait/Locomo knowledge/s PT/OT: Resolve 2018-12-29 Deejay ocampo kill Gait/Locom d 02-25 17:15:00 [place]ib[place] problems deficit: pt otion 14:50: [id number] 00 Cardio edema Cardiovasc Resolve 2018-05-27 Catia [...] d 2- 10:00:00 [place] deficit: pt 09:50: [id number] 00 Cardio knowledge/s Cardiovasc Resolve 2018-05-27 Vonnie kill ular d 2 10:00:00 [place] deficit: cg 09:50: [id number] 00 Respiratory lung sounds Respirator Resolve 2018-04-17 Vonnie deficit y d 2 09:00:00 [place] 09:50: [id number] 00 Medication oral med Meds Resolve 2018-04-24 [...] d 4- 09:00:00 [place] deficit: pt 10:00: [id number] 00 Social knowledge/s FEDE: Resolve 2018-2018-05-21 [facility] kill Social d 4- 10:00:00 [place] deficit - Services 10:00: [id number] pt 00 Social knowledge/s FEDE: Resolve 2018-2018-05-21 [facility] kill Social d 4- 10:00:00 [place] deficit - Services 10:00: [id number] cg 00 24 Hr Diet nutrition NT: 24Hr Active Silvana intake Diet 05-22 [place] deficit 09:50: [id number] 00 24 Hr Diet knowledge/s NT: 24Hr Resolve 2018-05-22 Silvana kill Diet d 05-22 09:50:00 [place] deficit - 09:50: [id number] pt 00 Nutritional food NT: Resolve 2018-05-22 Sil[place] Barrier storage/pre Barriers d 05-22 09:50:00 [place] p deficit 09:50: [id number] 00 Respiratory lung sounds Respirator Resolve 2018-05-27 Vonnie deficit y d 05-25 10:00:00 [place] 09:10: [id number] 00 Respiratory nebulizer Respirator Resolve 2018-05-27 Vonnie treatment y d 05-25 10:00:00 [place] in home 09:10: [id number] 00 Neuro impaired Neuro/Emot Resolve 2018-06-19 Catia toscano-ma ion d 05-27 09:00:00 [place] addison 10:00: 00 Test/Treatm tests Test/Injec Resolve 2018-06-09 Vonnie ent ordered t/Chele d 05-28 09:05:00 [place] [id number] Cardio knowledge/s Cardiovasc Resolve 2018-06-06 Catia blackar [...] present y d 4-15 09:00:00 [place] 09:00: [id number] 00 Respiratory oxygen Respirator Resolve 2018-06-10 Vonnie treatments y d 4-15 09:00:00 [place] in home 09:00: [id number] 00 Respiratory lung sounds Respirator Resolve 2018-06-06 [place]nie deficit y d 4-15 12:00:00 [place] 09:00: [id number] 00 Endo/Viktor diabetic Endo/Viktor Resolve 2018-06-06 Catia [...] d 06-08 09:00:00 [place] deficit: pt 10:35: [id number] 00 24 Hr Diet nutrition NT: 24Hr Unknown Silvana intake Diet 06-08 [place] deficit 10:40: [id number] 00 24 Hr Diet knowledge/s NT: 24Hr Resolve 2018-06-08 Silvana kill Diet d 06-08 10:40:00 [place] deficit - 10:40: [id number] pt 00 Respiratory lung sounds Respirator Resolve 2018-06-10 Vonnie deficit y d 06-09 09:00:00 [place] 09:05: [id number] 00 Musculoskel requires Musculoske Resolve 2018-06-10 Vonnie etal human letal d 06-09 09:00:00 [place] assist to 09:05: [id number] leave home 00 Cardio edema Cardiovasc Resolve [...] d 06-11 10:20:00 [place] deficit: cg 10:00: [id number] 00 Nutrition changing Nutrition Resolve 2018-06-26 Catia weight/appe d 06-12 08:30:00 [place] tite 10:20: 00 Nutrition knowledge/s Nutrition Resolve 2018-06-12 Catia kill d 06-12 10:20:00 [place] deficit: pt 10:20: 00 Cardio edema Cardiovasc Resolve 2018-06-17 Vonnierea wilhelm d 06-15 09:00:00 [place] 09:15: [id number] 00 Cardio pacemaker/I Cardiovasc Resolve 2018-06-17 Vonnierea CINTRON ular d 06-15 09:00:00 [place] 09:15: [id number] 00 Respiratory dyspnea Respirator Resolve 2018-06-17 Vonnie present y d 06-15 09:00:00 [place] 09:15: [id number] 00 Respiratory oxygen Respirator Resolve 2018-06-19 Vonnie treatments y d 06-15 09:00:00 [place] in home 09:15: [id number] 00 Respiratory lung sounds Respirator Resolve 2018-06-17 [place] deficit y d 06-15 09:00:00 [place] 09:15: [id number] 00 Nutrition knowledge/s Nutrition Resolve 2018-06-17 Vonnie kill d 06-15 09:00:00 [place] deficit: pt 09:15: [id number] 00 Sensory impaired Sensory Resolve 2018-06-22 Catia [...] NT: 24Hr Unknown Silvana intake Diet 5- [place] deficit 15:30: [id number] 00 24 Hr Diet knowledge/s NT: 24Hr Resolve 2018-06-18 Silvana kill Diet d 5- 15:30:00 [place] deficit - 15:30: [id number] pt 00 Nutrition knowledge/s Nutrition Resolve 2018-06-19 Catia kill d 06-19 09:00:00 [place] deficit: pt 09:00: 00 Safety can be left Safety Resolve 2018-06-26 Catia alone for d 06-19 08:30:00 [place] only short 09:00: periods 00 Medication oral med Meds Resolve 2018-06-19 Catia assistance d 06-19 09:00:00 [place] required 09:00: 00 Cardio edema Cardiovasc Resolve 2018-06-26 Vonnie wilhelm d 06-22 08:30:00 [place] 09:15: [id number] 00 Cardio knowledge/s Cardiovasc Resolve 2018-07-24 Vonnieajith fletcher ular d 06-22 09:00:00 [place] deficit: pt 09:15: [id number] 00 Cardio pacemaker/I Cardiovasc Resolve 2018-06-26 Vonnierea CINTRON ular d 06-22 08:30:00 [place] 09:15: [id number] 00 Nutrition knowledge/s Nutrition Resolve 2018-06-24 Vonnie kill d 06-22 11:00:00 [place] deficit: pt 09:15: [id number] 00 Nutrition knowledge/s Nutrition Resolve 2018-06-24 Vonnie kill d 06-22 11:00:00 [place] deficit: cg 09:15: [id number] 00 Neuro impaired Neuro/Emot Resolve 2018-06-26 Vonnie decision-ma ion d 06-22 08:30:00 [place] addison 09:15: [id number] 00 Neuro knowledge/s Neuro/Emot Resolve 2018-06-22 Vonnie kill ion d 06-22 09:15:00 [place] deficit: pt 09:15: [id number] 00 Neuro knowledge/s Neuro/Emot Resolve 2018-06-24 [place]nie kill ion d 06-23 11:00:00 [place] deficit: pt 09:30: [id number] 00 Social financial FEDE: Active [facility] resource Social 06-23 [place] deficit Services 09:45: [id number] 00 Social knowledge/s FEDE: Resolve 2018-06-23 [facility] kill Social d 06-23 09:45:[facility] 09:45: [id number] pt 00 Respiratory oxygen Respirator Resolve 2018-06-26 [...] 00 Cardio edema Cardiovasc Resolve 2018-07-08 Vonnie wilehlm d 5-13 16:00:00 [place] 09:30: [id number] 00 Respiratory oxygen Respirator Resolve 2018-07-08 Vonnierea sánchez y d 5-13 16:00:00 [place] in home 09:30: [id number] 00 Nutrition knowledge/s Nutrition Resolve 2018-07-01 Vonnie fletcher d 5-13 10:00:00 [place] deficit: pt 09:30: [id number] 00 Cardio chest pain Cardiovasc Resolve 2018-07-08 Catia wilhelm d 5-15 16:00:00 [place] 10:00: 00 Cardio pacemaker/I Cardiovasc Resolve 2018-07-08 Catia wilhelm d -15 16:00:00 [place] 10:00: 00 Social knowledge/s FEDE: Resolve 2018-07-08 Catia Joy kill Social d 5-15 11:00:00 [place] deficit - Services 10:00: pt 00 Nutrition knowledge/s Nutrition Resolve 2018-07-08 Vonnie fletcher d -20 16:00:00 [place] deficit: pt 09:15: [id number] 00 Safety structural Safety Resolve 2018-07-23 [place] barriers d 07-08 11:15:00 [place] present 11:00: [id number] 00 Safety sanitation Safety Resolve 2018-07-23 [place] hazards d 07-08 11:15:00 [place] present 11:00: [id number] 00 Safety can be left Safety Resolve 2018-07-23 [place] alone for d 07-08 11:15:00 [place] only short 11:00: [id number] periods 00 Neuro impaired Neuro/Emot Active Catia antunez 07-08 [place] jaime 16:00: 00 Medication oral med Meds Resolve 2018-07-10 Catia assistance d 07-08 09:08:00 [place] required 16:00: 00 Medication injectable Meds Unknown Ctaia med 07-08 [place] assistance 16:00: required 00 Cardio edema Cardiovasc Resolve 2018-07-23 Vonnie ular d 07-10 11:15:00 [place] 09:08: [id number] 00 Cardio pacemaker/I Cardiovasc Resolve 2018-07-23 Vonnie CD ular d 07-10 11:15:00 [place] 09:08: [id number] 00 Respiratory oxygen Respirator Resolve 2018-08-14 Vonnie treatments y d 07-10 09:00:00 [place] in home 09:08: [id number] 00 Respiratory lung sounds Respirator Resolve 2018-07-24 [place]nie deficit y d 07-10 09:00:00 [place] 09:08: [id number] 00 Nutrition knowledge/s Nutrition Resolve 2018-07-23 Vonnie kill d 07-10 11:15:00 [place] deficit: pt 09:08: [id number] 00 Neuro knowledge/s Neuro/Emot Resolve 2018-07-23 Vonnie kill ion d 07-10 11:15:00 [place] deficit: pt 09:08: [id number] 00 Social knowledge/s FEDE: Resolve 2018-09-29 [facility] kill Social d 07-10 10:00:00 [place] deficit - Services 09:08: [id number] pt 00 Neuro memory Neuro/Emot Resolve 2018-07-23 Vonnie deficit ion d 07-14 11:15:00 [place] needing 09:18: [id number] supervision 00 Pain frequent Pain Mgmt Active Vonnie pain 07-17 [place] 09:40: [id number] 00 Nutrition knowledge/s Nutrition Resolve 2018-07-23 Vonnie kill d 07-17 11:15:00 [place] deficit: cg 09:40: [id number] 00 Medication injectable Meds Unknown Vonnie med 07-17 [place] assistance 09:40: [id number] required 00 Respiratory bloody Respirator Resolve 2018-2018-07-27 Vonnie sputum y d 6 09:00:00 [place] 09:07: [id number] 00 Respiratory dyspnea Respirator Resolve 2018-07-27 Catia [...] d 6-10 09:00:00 [place] deficit: pt 09:00: [id number] 00 Nutrition nutritional Nutrition Resolve 2018-2018-07-31 Vonnie restriction d 6-10 09:00:00 [place] s 09:00: [id number] 00 Cardio pacemaker/I Cardiovasc Resolve 2018-2018-07-31 Catia CINTRON ular d 6-14 09:00:00 [place] 09:00: 00 Respiratory CPAP Respirator Resolve 2018-07-31 Catia treatments y d 6-14 09:00:00 [place] in home 09:00: 00 Medication oral med Meds Resolve 2018-08-03 Catia assistance d 6-14 09:00:00 [place] required 09:00: 00 Nutrition knowledge/s Nutrition Unknown [place] kill 6-14 [place] deficit: pt 10:00: [id number] 00 Nutrition knowledge/s Nutrition Resolve 2018-08-07 [place] kill d 6-14 10:00:00 [place] deficit: cg 10:00: [id number] 00 Nutrition nutritional Nutrition Unknown [place] restriction 6-14 [place] s 10:00: [id number] 00 Safety can be left Safety Resolve 2018-08-07 [place] alone for d 6-14 10:00:00 [place] only short 10:00: [id number] periods 00 Nutrition knowledge/s Nutrition Unknown Catia kill 6-14 [place] deficit: pt 10:30: 00 Nutrition nutritional Nutrition Unknown Catia restriction 6-14 [place] s 10:30: 00 Respiratory CPAP Respirator Resolve 2018-08-07 Vonnie treatments y d 6-17 10:00:00 [place] in home 09:00: [id number] 00 Nutrition knowledge/s Nutrition Resolve 2018-08-07 Vonnie kill d 6-17 10:00:00 [place] deficit: pt 09:00: [id number] 00 Nutrition nutritional Nutrition Resolve 2018-08-07 Vonnie restriction d 6-17 10:00:00 [place] s 09:00: [id number] 00 Cardio pacemaker/I Cardiovasc Resolve 2018-08-10 Catia [...] factor d 08-14 09:00:00 Thomas present 09:00: [id number] 00 Safety fire risk Safety Resolve 2018-08-28 Jennifer Baum present d 08-14 09:00:00 Thomas 09:00: [id number] 00 Safety risk for Safety Resolve 2018-08-28 Jennifer Baum hospitaliza d 08-14 09:00:00 Thomas tion 09:00: [id number] 00 Medication oral med Meds Resolve 2018-08-14 [...] [facility] for [facility] 09:45: [id number] 00 Cardio pacemaker/I Cardiovasc Resolve 2018-09-11 Catia [...] Vonnie wilhelm d 09-18 10:20:00 [place] 10:00: [id number] 00 Safety risk for Safety Resolve 2018-09-18 Vonnie hospitaliza d 09-18 10:00:00 [place] tion 10:00: [id number] 00 Cardio chest pain Cardiovasc Resolve 2018-09-25 Vonnierea wilhelm d 09-25 10:10:00 [place] 10:10: [id number] 00 Cardio knowledge/s Cardiovasc Resolve 2018-09-25 Vonnie chance wilhelm d 09-25 10:10:00 [place] deficit: cg 10:10: [id number] 00 Neuro memory Neuro/Emot Resolve 2018-10-23 Vonnie deficit ion d 09-25 09:00:00 [place] needing 10:10: [id number] supervision 00 Safety risk for Safety Resolve 2018-09-25 Vonnie hospitaliza d 09-25 10:10:00 [place] tion 10:10: [id number] 00 Neuro depressive Neuro/Emot Resolve 2018-10-23 Catia feelings ion d 10-02 09:00:00 [place] present 09:00: 00 Safety risk for Safety Resolve 2018 Catia hospitaliza d 10-02 09:00:00 [place] tion 09:00: 00 Safety risk for Safety Resolve 2018-10-09 Vonnie hospitaliza d 10-06 10:20:00 [place] tion 11:40: [id number] 00 Elimination nausea/vomi Eliminatio Resolve 2018-10-16 Catia [...] FEDE: Active [facility] kill Social 10-28 [facility] deficit - Services 16:15: [id number] pt 00 Cardio pacemaker/I Cardiovasc Resolve 2018-10-30 [...] 2018-02 [facility] hospitaliza 02-21 [place] tion 10:15: [id number] 00 Safety sanitation Safety Resolve 2018-022018-12-30 Janet hazards d 1-05 10:00:00 Chaudhari present 15:10: [id number] 00 Safety fall risk Safety Resolve 2018-022018-12-24 Janet factor d 105 09:00:00 Chaudhari present 15:10: [id number] 00 Respiratory oxygen Respirator Resolve 2018-022018-12-30 Catia [...] restriction d 03-13 08:00:00 [place] s 15:30: [id number] 00 Respiratory oxygen Respirator Resolve 2018-022019-01-15 Catia [...] 2018-02 [place] restriction 2-20 [place] s 10:15: [id number] 00 Cardio pacemaker/I Cardiovasc Resolve 2018-022019-02-19 Catia [...] assistance letal 04-14 [place] required 11:00: 00 Allergies, Adverse Reactions, Alerts Allergy Allergy Status Severity Reaction(s) Onset Inactive Treating Comments Name Type Date Date Clinician shellfish Unknown Active Unknown Reaction 2017-05 Massiel Unknown -11 (Maria G) Shaun [id number] IVP DYE Unknown Active Unknown Reaction 2017-05 Massiel Unknown -11 (Maria G) Shaun [id number] Medications Ordered Filled Start Stop Current Ordering Indication Dosage Frequency Signature Comments Components Medication Medication Date Date Medication? Clinician (SIG) Name Name albuterol albuterol No Midura 1 puffs Unknown sulfate HFA sulfate HFA MDErasmo 90 90 mcg/actuati mcg/actuati on aerosol on aerosol inhaler inhaler lisinopril lisinopril No Midura 2.5 mg Unknown 2.5 mg 2.5 mg MD,Erasmo tablet tablet omeprazole omeprazole No Midura 20 mg Unknown 20 mg 20 mg MD,Erasmo capsule,del capsule,del ayed ayed release release gabapentin gabapentin No Midura 300 mg Unknown 300 mg 300 mg MD,Erasmo capsule capsule Symbicort Symbicort No Midura 2 [...] 30 mg Unknown 30 mg 30 mg MD,Erasmo tablet tablet glipiZIDE 5 glipiZIDE 5 No Midura Unknown Unknown mg tablet mg tablet Erasmo ANDERSON Janumet 50 Febumet 50 No Midura Unknown Unknown mg-1,000 mg [...] 02-19 Erasmo ANDERSON tablet tablet Janumet 50 Febumet 50 No Midura Unknown Unknown mg-1,000 mg mg-1,000 mg 02-19 Erasmo ANDERSON tablet tablet Xarelto 20 Xarelto 20 2018- No Midura Unknown Unknown mg tablet mg tablet 02-19 Erasmo ANDERSON gabapentin gabapentin 2018- No Midura Unknown Unknown 300 mg 300 mg 02-19- MD,Erasmo capsule capsule cetirizine cetirizine No Midura Unknown Unknown 10 mg 10 mg - MD,Erasmo tablet tablet spironolact spironolact 2018- No [...] Midura Unknown Unknown sulfate 325 sulfate 325 02-19- MD,Erasmo mg (65 mg mg (65 mg iron) iron) tablet,belkys tablet,belkys yed release yed release magnesium magnesium 2018- No Midura Unknown Unknown oxide 400 oxide 400 02-19 MD,Erasmo mg (241.3 mg (241.3 mg mg magnesium) magnesium) tablet tablet Maalox Maalox No Midura Unknown Unknown Maximum Maximum - MD,Erasmo Strength Strength 400 mg-400 400 mg-400 [...] Unknown Unknown mg capsule mg capsule 02-19 ,Erasmo albuterol albuterol No Midura Unknown Unknown [...] tablet tablet 05-05 ,Qutaybe h cephALEXin cephALEXin Midura Unknown Unknown 500 mg 500 mg 05-06 MD,Erasmo capsule capsule triamcinolo triamcinolo 2018- Midura Unknown Unknown ne ne 05-06 ,Erasmo acetonide acetonide 0.1 % 0.1 % topical topical cream cream Lasix 20 mg Lasix 20 mg Maghayd[place] Unknown Unknown tablet tablet 05-07 MD,Qutaybe h Lasix 20 mg Lasix 20 mg [place] Unknown Unknown tablet tablet 05-07 MD,Qutaybe h furosemide furosemide [place] Unknown Unknown 20 mg 20 mg 05-09 MD,Qutaybe tablet tablet h Lasix 20 mg Lasix 20 mg [place] Unknown Unknown tablet tablet 05-08 MD,Qutaybe h ferrous ferrous Midura Unknown Unknown sulfate 325 [...] release Oxygen Oxygen Midura Unknown Unknown 05-15 0913 MD,Erasmo zinc zinc 2018- Midura Unknown Unknown sulfate 220 sulfate 220 05-14 MD,Erasmo mg tablet mg tablet furosemide furosemide [place]hayd[place] Unknown Unknown 40 mg 40 mg 05-14 MD,Qutaybe tablet tablet h Lasix 40 mg Lasix 40 mg [place]hayd[place] Unknown Unknown tablet tablet 05-27 ,Qutaybe h bumetanide bumetanide 2019-0 2019- No [place]hayd[place] Unknown Unknown 1 mg tablet 1 mg tablet 05-28 ,Meg h bumetanide bumetanide 2018- No [place]haydah Unknown [...] Unknown Unknown 20 mg 20 mg 06-11 ,Qutaybe tablet tablet h torsemide torsemide 2018- No [place] Unknown Unknown 20 mg 20 mg 06-13 MD,Qutaybe tablet tablet h torsemide torsemide 2018- No [place] Unknown Unknown 20 mg 20 mg 06-12 MD,Qutaybe tablet tablet h torsemide torsemide 2018- No [place] Unknown Unknown 20 mg 20 mg 06-14 ,Qutaybe tablet tablet h ferrous ferrous 2018- No Midura Unknown Unknown sulfate 325 sulfate 325 06-17 Erasmo ANDERSON mg (65 mg mg (65 mg iron) iron) tablet,belkys tablet,belkys yed release yed release Colace 100 Colace 100 2018- No Midura Unknown Unknown mg capsule mg capsule 06-18- MDErasmo Colace 100 Colace 100 No Midura Unknown [...] Unknown Unknown mcg/actuati mcg/actuati 06-25 MD,Qutaybe on Eunice on Eunice h Cipro 500 Cipro 500 2018- No Midura Unknown Unknown mg tablet mg tablet 07-03 MD,Erasmo torsemide torsemide 2018- No [place] Unknown Unknown 20 mg 20 mg 07-21- MD,Qutaybe tablet tablet h metOLazone metOLazone 2018- No [place] Unknown Unknown 2.5 mg 2.5 mg 07-21 MD,Qutaybe tablet tablet h mometasone mometasone No Midura Unknown Unknown 0.1 % 0.1 % 08-04 ,Erasmo topical topical cream cream torsemide torsemide No [place] Unknown Unknown 10 mg 10 mg 10-07 MD,Qutaybe tablet tablet h clonazePAM clonazePAM 2018- [...] mg tablet 2 mg tablet 03-31 MD,Erasmo metOLazone metOLazone 2018-02- No [place] Unknown Unknown [...] Observation Time Observation Value Comments SYSTOLIC mm[Hg] 2019-04-14 18:10:35 118 mm[Hg] mm[Hg] Method: Sit SYSTOLIC mm[Hg] 2019-04-14 18:10:35 114 mm[Hg] mm[Hg] Method: Stand DIASTOLIC mm[Hg] 2019-04-14 18:10:35 72 mm[Hg] mm[Hg] Method: Sit DIASTOLIC mm[Hg] 2019-04-14 18:10:35 70 mm[Hg] mm[Hg] Method: Stand PULSE 2019-04-14 18:10:35 91 /min /min RESP RATE 2019-04-14 18:10:35 16 /min /min TEMP 2019-04-14 18:10:35 97.2 [degF] Procedures This patient has no known procedures. Results This patient has no known results.
--- OUTSIDE RECORDS SUMMARY | 2019-05-13 12:15 | XMS REPORT ---
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 Catia (current) (current) [place] use of use of anticoagula anticoagula [facility] Diagnosis Active Catia (current) (current) [place] use of use of aspirin aspirin Hyperlipide Hyperlipide Diagnosis Active Catia dickerson, tuan, [place] unspecified unspecified Cardio edema Cardiovasc [...] 10:00:00 [place] deficit: cg 11:00: 00 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 PT/OT: Resolve 2018-12-29 Catia yousif rdination [...] 02-25 17:15:00 [place] sigala device ransfer 14:50: [id number] present 00 Bed transfer PT/OT: Bed Resolve 2018-12-29 Deejay Mobility/Tr deficit: Mobility/T d 02-25 17:15:00 [place] sigala toilet/comm ransfer 14:50: [id number] ode 00 Bed transfer PT/OT: Bed Resolve 2018-12-29 Deejay Mobility/Tr deficit: Mobility/T d 02-25 17:15:00 [place] sigala shower/tub ransfer 14:50: [id number] 00 Bed knowledge/s PT/OT: Bed Resolve 2018-12-29 Deejay Mobility/Tr kill Mobility/T d 02-25 17:15:00 [place] sigala deficit: pt ransfer 14:50: [id number] 00 Balance/End knowledge/s PT/OT: Resolve 2018-12-29 Deejay yousif kill Balance/En d 02-25 17:15:00 [place] deficit: pt durance 14:50: [id number] 00 Environment knowledge/s PT/OT: Resolve 2018-12-29 Deejay hennessy kill Environmen d 02-25 17:15:00 [place] deficit: pt t 14:50: [id number] 00 Environment environment PT/OT: Resolve 2018-12-29 Deejay hennessy al barriers Environmen d 02-25 17:15:00 [place] t 14:50: [id number] 00 Gait/[place]o gait PT/OT: Resolve 2018-12-29 Deejay tisimran assistive Gait/Locom d 02-25 17:15:00 Garibay problems device otion 14:50: [id number] present 00 Gait/[place] knowledge/s PT/OT: Resolve 2018-12-29 Deejay ocampo kill Gait/Locom d 02-25 17:15:00 [place] problems deficit: pt otion 14:50: [id number] 00 Cardio edema Cardiovasc Resolve 2018-05-27 Catia [...] d 2- 10:00:00 [place] deficit: pt 09:50: [id number] 00 Cardio knowledge/s Cardiovasc Resolve 2018-05-27 Vonnie kill ular d 2 10:00:00 [place] deficit: cg 09:50: [id number] 00 Respiratory lung sounds Respirator Resolve 2018-04-17 [place]nie deficit y d 2 09:00:00 [place] 09:50: [id number] 00 Medication oral med Meds Resolve 2018-04-24 [...] d 4- 09:00:00 [place] deficit: pt 10:00: [id number] 00 Social knowledge/s FEDE: Resolve 2018-2018-05-21 [facility] kill Social d 4- 10:00:00 [place] deficit - Services 10:00: [id number] pt 00 Social knowledge/s FEDE: Resolve 2018-2018-05-21 [facility] kill Social d 4- 10:00:00 [place] deficit - Services 10:00: [id number] cg 00 24 Hr Diet nutrition NT: 24Hr Active Silvana intake Diet 05-22 [place] deficit 09:50: [id number] 00 24 Hr Diet knowledge/s NT: 24Hr Resolve 2018-05-22 Sil[place]ana kill Diet d 05-22 09:50:00 [place] deficit - 09:50: [id number] pt 00 Nutritional food NT: Resolve 2018-05-22 [place] Barrier storage/pre Barriers d 05-22 09:50:00 [place] p deficit 09:50: [id number] 00 Respiratory lung sounds Respirator Resolve 2018-05-27 [place]nie deficit y d 05-25 10:00:00 [place] 09:10: [id number] 00 Respiratory nebulizer Respirator Resolve 2018-05-27 Vonnie treatment y d 05-25 10:00:00 [place] in home 09:10: [id number] 00 Neuro impaired Neuro/Emot Resolve 2018-06-19 Catia toscano-ma ion d 05-27 09:00:00 [place] addison 10:00: 00 Test/Treatm tests Test/Injec Resolve 2018-06-09 Vonnie ent ordered t/Chele d 05-28 09:05:00 [place] [id number] Cardio knowledge/s Cardiovasc Resolve 2018-06-06 Catia blackar [...] present y d 4-15 09:00:00 [place] 09:00: [id number] 00 Respiratory oxygen Respirator Resolve 2018-06-10 [place]nie treatments y d 4-15 09:00:00 [place] in home 09:00: [id number] 00 Respiratory lung sounds Respirator Resolve 2018-06-06 [place] deficit y d 4-15 12:00:00 [place] 09:00: [id number] 00 Endo/Viktor diabetic Endo/Viktor Resolve 2018-06-06 Catia [...] d 06-08 09:00:00 [place] deficit: pt 10:35: [id number] 00 24 Hr Diet nutrition NT: 24Hr Unknown Silvana intake Diet 06-08 [place] deficit 10:40: [id number] 00 24 Hr Diet knowledge/s NT: 24Hr Resolve 2018-06-08 Silvana kill Diet d 06-08 10:40:00 [place] deficit - 10:40: [id number] pt 00 Respiratory lung sounds Respirator Resolve 2018-06-10 [place]nie deficit y d 06-09 09:00:00 [place] 09:05: [id number] 00 Musculoskel requires Musculoske Resolve 2018-06-10 Vonnie etal human letal d 06-09 09:00:00 [place] assist to 09:05: [id number] leave home 00 Cardio edema Cardiovasc Resolve [...] d 06-11 10:20:00 [place] deficit: cg 10:00: [id number] 00 Nutrition changing Nutrition Resolve 2018-06-26 Catia weight/appe d 06-12 08:30:00 [place] tite 10:20: 00 Nutrition knowledge/s Nutrition Resolve 2018-06-12 Catia kill d 06-12 10:20:00 [place] deficit: pt 10:20: 00 Cardio edema Cardiovasc Resolve 2018-06-17 Vonnierea wilhelm d 06-15 09:00:00 [place] 09:15: [id number] 00 Cardio pacemaker/I Cardiovasc Resolve 2018-06-17 Vonnierea CINTRON ular d 06-15 09:00:00 [place] 09:15: [id number] 00 Respiratory dyspnea Respirator Resolve 2018-06-17 [place]nie present y d 06-15 09:00:00 [place] 09:15: [id number] 00 Respiratory oxygen Respirator Resolve 2018-06-19 Vonnie treatments y d 06-15 09:00:00 [place] in home 09:15: [id number] 00 Respiratory lung sounds Respirator Resolve 2018-06-17 [place] deficit y d 06-15 09:00:00 [place] 09:15: [id number] 00 Nutrition knowledge/s Nutrition Resolve 2018-06-17 [place]nie kill d 06-15 09:00:00 [place] deficit: pt 09:15: [id number] 00 Sensory impaired Sensory Resolve 2018-06-22 Catia [...] NT: 24Hr Unknown Silvana intake Diet 5- [place] deficit 15:30: [id number] 00 24 Hr Diet knowledge/s NT: 24Hr Resolve 2018-06-18 Silvana kill Diet d 5- 15:30:00 [place] deficit - 15:30: [id number] pt 00 Nutrition knowledge/s Nutrition Resolve 2018-06-19 Catia kill d 06-19 09:00:00 [place] deficit: pt 09:00: 00 Safety can be left Safety Resolve 2018-06-26 Catia alone for d 06-19 08:30:00 [place] only short 09:00: periods 00 Medication oral med Meds Resolve 2018-06-19 Catia assistance d 06-19 09:00:00 [place] required 09:00: 00 Cardio edema Cardiovasc Resolve 2018-06-26 Vonnie wilhelm d 06-22 08:30:00 [place] 09:15: [id number] 00 Cardio knowledge/s Cardiovasc Resolve 2018-07-24 Vonnieajith fletcher ular d 06-22 09:00:00 [place] deficit: pt 09:15: [id number] 00 Cardio pacemaker/I Cardiovasc Resolve 2018-06-26 Vonnierea CINTRON ular d 06-22 08:30:00 [place] 09:15: [id number] 00 Nutrition knowledge/s Nutrition Resolve 2018-06-24 [place]nie kill d 06-22 11:00:00 [place] deficit: pt 09:15: [id number] 00 Nutrition knowledge/s Nutrition Resolve 2018-06-24 [place]nie kill d 06-22 11:00:00 [place] deficit: cg 09:15: [id number] 00 Neuro impaired Neuro/Emot Resolve 2018-06-26 Vonnie decision-ma ion d 06-22 08:30:00 [place] addison 09:15: [id number] 00 Neuro knowledge/s Neuro/Emot Resolve 2018-06-22 Vonnie kill ion d 06-22 09:15:00 [place] deficit: pt 09:15: [id number] 00 Neuro knowledge/s Neuro/Emot Resolve 2018-06-24 [place] kill ion d 06-23 11:00:00 [place] deficit: pt 09:30: [id number] 00 Social financial FEDE: Active [facility] resource Social 06-23 [place] deficit Services 09:45: [id number] 00 Social knowledge/s FEDE: Resolve 2018-06-23 [facility] kill Social d 06-23 09:45:00 [facility] 09:45: [id number] pt 00 Respiratory oxygen Respirator Resolve 2018-06-26 [...] Vonnie wilhelm d 5-13 16:00:00 [place] 09:30: [id number] 00 Respiratory oxygen Respirator Resolve 2018-07-08 Vonnierea sánchez y d 5-13 16:00:00 [place] in home 09:30: [id number] 00 Nutrition knowledge/s Nutrition Resolve 2018-07-01 Vonnie fletcher d 5-13 10:00:00 [place] deficit: pt 09:30: [id number] 00 Cardio chest pain Cardiovasc Resolve 2018-07-08 Catia wilhelm d 5-15 16:00:00 [place] 10:00: 00 Cardio pacemaker/I Cardiovasc Resolve 2018-07-08 Catia wilhelm d -15 16:00:00 [place] 10:00: 00 Social knowledge/s FEDE: Resolve 2018-07-08 Catia Joy kill Social d 5-15 11:00:00 [place] deficit - Services 10:00: pt 00 Nutrition knowledge/s Nutrition Resolve 2018-07-08 Vonnie fletcher d -20 16:00:00 [place] deficit: pt 09:15: [id number] 00 Safety structural Safety Resolve 2018-07-23 [place] barriers d 07-08 11:15:00 [place] present 11:00: [id number] 00 Safety sanitation Safety Resolve 2018-07-23 [place] hazards d 07-08 11:15:00 [place] present 11:00: [id number] 00 Safety can be left Safety Resolve 2018-07-23 [place] alone for d 07-08 11:15:00 [place] only short 11:00: [id number] periods 00 Neuro impaired Neuro/Emot Active Catia antunez 07-08 [place] jaime 16:00: 00 Medication oral med Meds Resolve 2018-07-10 Catia assistance d 07-08 09:08:00 [place] required 16:00: 00 Medication injectable Meds Unknown Catia med 07-08 [place] assistance 16:00: required 00 Cardio edema Cardiovasc Resolve 2018-07-23 Vonnie ular d 07-10 11:15:00 [place] 09:08: [id number] 00 Cardio pacemaker/I Cardiovasc Resolve 2018-07-23 Vonnie CD ular d 07-10 11:15:00 [place] 09:08: [id number] 00 Respiratory oxygen Respirator Resolve 2018-08-14 Vonnie treatments y d 07-10 09:00:00 [place] in home 09:08: [id number] 00 Respiratory lung sounds Respirator Resolve 2018-07-24 [place] deficit y d 07-10 09:00:00 [place] 09:08: [id number] 00 Nutrition knowledge/s Nutrition Resolve 2018-07-23 Vonnie kill d 07-10 11:15:00 [place] deficit: pt 09:08: [id number] 00 Neuro knowledge/s Neuro/Emot Resolve 2018-07-23 [place]nie kill ion d 07-10 11:15:00 [place] deficit: pt 09:08: [id number] 00 Social knowledge/s FEDE: Resolve 2018-09-29 [facility] kill Social d 07-10 10:00:00 [place] deficit - Services 09:08: [id number] pt 00 Neuro memory Neuro/Emot Resolve 2018-07-23 [place] deficit ion d 07-14 11:15:00 [place] needing 09:18: [id number] supervision 00 Pain frequent Pain Mgmt Active Vonnie pain 07-17 [place] 09:40: [id number] 00 Nutrition knowledge/s Nutrition Resolve 2018-07-23 Vonnie kill d 07-17 11:15:00 [place] deficit: cg 09:40: [id number] 00 Medication injectable Meds Unknown Vonnie med 07-17 [place] assistance 09:40: [id number] required 00 Respiratory bloody Respirator Resolve 2018-2018-07-27 [place]nie sputum y d 6 09:00:00 [place] 09:07: [id number] 00 Respiratory dyspnea Respirator Resolve 2018-07-27 Catia [...] d 6-10 09:00:00 [place] deficit: pt 09:00: [id number] 00 Nutrition nutritional Nutrition Resolve 2018-2018-07-31 Vonnie restriction d 6-10 09:00:00 [place] s 09:00: [id number] 00 Cardio pacemaker/I Cardiovasc Resolve 2018-2018-07-31 Catia CINTRON ular d 6-14 09:00:00 [place] 09:00: 00 Respiratory CPAP Respirator Resolve 2018-07-31 Catia treatments y d 6-14 09:00:00 [place] in home 09:00: 00 Medication oral med Meds Resolve 2018-08-03 Catia assistance d 6-14 09:00:00 [place] required 09:00: 00 Nutrition knowledge/s Nutrition Unknown [place] kill 6-14 [place] deficit: pt 10:00: [id number] 00 Nutrition knowledge/s Nutrition Resolve 2018-08-07 [place] kill d 6-14 10:00:00 [place] deficit: cg 10:00: [id number] 00 Nutrition nutritional Nutrition Unknown [place] restriction 6-14 [place] s 10:00: [id number] 00 Safety can be left Safety Resolve 2018-08-07 [place] alone for d 6-14 10:00:00 [place] only short 10:00: [id number] periods 00 Nutrition knowledge/s Nutrition Unknown Catia kill 6-14 [place] deficit: pt 10:30: 00 Nutrition nutritional Nutrition Unknown Catia restriction 6-14 [place] s 10:30: 00 Respiratory CPAP Respirator Resolve 2018-08-07 Vonnie treatments y d 6-17 10:00:00 [place] in home 09:00: [id number] 00 Nutrition knowledge/s Nutrition Resolve 2018-08-07 Vonnie kill d 6-17 10:00:00 [place] deficit: pt 09:00: [id number] 00 Nutrition nutritional Nutrition Resolve 2018-08-07 [place]nie restriction d 6-17 10:00:00 [place] s 09:00: [id number] 00 Cardio pacemaker/I Cardiovasc Resolve 2018-08-10 Catia [...] factor d 08-14 09:00:00 Thomas present 09:00: [id number] 00 Safety fire risk Safety Resolve 2018-08-28 Jennifer Baum present d 08-14 09:00:00 Thomas 09:00: [id number] 00 Safety risk for Safety Resolve 2018-08-28 Jennifer Baum hospitaliza d 08-14 09:00:00 Thomas tion 09:00: [id number] 00 Medication oral med Meds Resolve 2018-08-14 Catia assistance d 08-14 09:00:00 [place] required 09:00: 00 Cardio pacemaker/I Cardiovasc Resolve 2018-2018-08-28 Catia blackar d 08-21 09:00:00 [place] 09:00: 00 Medication oral med Meds Resolve 2018-2018-08-28 Catia assistance d 7 09:00:00 [place] required 09:00: 00 Elimination nausea/vomi Eliminatio Resolve 2018-09-04 Catia bass n d 08-28 09:45:00 [place] 09:00: 00 [facility] 09:45: [id number] 00 Cardio pacemaker/I Cardiovasc Resolve 2018-09-11 Catia [...] Resolve 2018-10-09 Vonnie wilhelm d 09-18 10:20:00 [place] 10:00: [id number] 00 Safety risk for Safety Resolve 2018-09-18 Vonnie hospitaliza d 09-18 10:00:00 [place] tion 10:00: [id number] 00 Cardio chest pain Cardiovasc Resolve 2018-09-25 Vonnierea wilhelm d 09-25 10:10:00 [place] 10:10: [id number] 00 Cardio knowledge/s Cardiovasc Resolve 2018-09-25 Vonnie chance wilhelm d 09-25 10:10:00 [place] deficit: cg 10:10: [id number] 00 Neuro memory Neuro/Emot Resolve 2018-10-23 [place]nie deficit ion d 09-25 09:00:00 [place] needing 10:10: [id number] supervision 00 Safety risk for Safety Resolve 2018-09-25 Vonnie hospitaliza d 09-25 10:10:00 [place] tion 10:10: [id number] 00 Neuro depressive Neuro/Emot Resolve 2018-10-23 Catia feelings ion d 10-02 09:00:00 [place] present 09:00: 00 Safety risk for Safety Resolve 2018 Catia hospitaliza d 10-02 09:00:00 [place] tion 09:00: 00 Safety risk for Safety Resolve 2018-10-09 Vonnie hospitaliza d 10-06 10:20:00 [place] tion 11:40: [id number] 00 Elimination nausea/vomi Eliminatio Resolve 2018-10-16 Catia longo d 10-09 09:00:00 [place] 10:20: 00 Cardio pacemaker/I Cardiovasc Resolve 2018-10-23 Catia wilhelm d 10-16 09:00:00 [place] 09:00: 00 Safety fall risk Safety Resolve 2018-10-16 Catia martin d 10-16 09:00:00 [place] present 09:00: 00 Safety risk for Safety Resolve 2018-10-16 Catia fraesriztomasz d 10-16 09:00:00 [place] tion 09:00: 00 Musculoskel transfer Musculoske Resolve 2018-10-23 Catia bearl assistance letal d 10-16 09:00:00 [place] required 09:00: 00 Safety risk for Safety Resolve 2018-10-23 Catia hospitaliza d 10-23 09:00:00 [place] tion 09:00: 00 Social knowledge/s FEDE: Active [facility] kill Social 10-28 [facility] deficit - Services 16:15: [id number] pt 00 Cardio pacemaker/I Cardiovasc Resolve 2018-10-30 [...] 2018-02 [facility] hospitaliza 02-21 [place] tion 10:15: [id number] 00 Safety sanitation Safety Resolve 2018-022018-12-30 Janet hazards d 1-05 10:00:00 Chaudhari present 15:10: [id number] 00 Safety fall risk Safety Resolve 2018-022018-12-24 Janet factor d 105 09:00:00 Chaudhari present 15:10: [id number] 00 Respiratory oxygen Respirator Resolve 2018-022018-12-30 Catia [...] restriction d 03-13 08:00:00 [place] s 15:30: [id number] 00 Respiratory oxygen Respirator Resolve 2018-022019-01-15 Catia [...] 2018-02 [place] restriction 2-20 [place] s 10:15: [id number] 00 Cardio pacemaker/I Cardiovasc Resolve 2018-022019-02-19 Catia [...] 2017-05 Massiel Unknown -11 (Maria G) Shaun [id number] IVP DYE Unknown Active Unknown Reaction 2017-05 Massiel Unknown -11 (Maria G) Shaun [id number] Medications Ordered Filled Start Stop Current Ordering [...] Unknown Unknown mcg/actuati mcg/actuati 06-25 MD,Qutaybe on Titus on Titus h Cipro 500 Cipro 500 2018- No [...]
--- OUTSIDE RECORDS SUMMARY | 2019-05-13 12:15 | XMS REPORT ---
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 Catia (current) (current) [place] use of use of anticoagula anticoagula nts nts halfway halfway Diagnosis Active Catia (current) (current) [place] [...] 10:00:00 [place] deficit: cg 11:00: 00 Balance/End balance/ambulatory care coordinator PT/OT: Resolve 2018-12-29 Catia yousif rdination [...] 02-25 17:15:00 [place] sigala device ransfer 14:50: [id number] present 00 Bed transfer PT/OT: Bed Resolve 2018-12-29 Deejay Mobility/Tr deficit: Mobility/T d 02-25 17:15:00 [place] sigala toilet/comm ransfer 14:50: [id number] 00 Bed transfer PT/OT: Bed Resolve 2018-12-29 Deejay Mobility/Tr deficit: Mobility/T d 02-25 17:15:00 [place] sigala shower/tub ransfer 14:50: [id number] 00 Bed knowledge/s PT/OT: Bed Resolve 2018-12-29 Deejay Mobility/Tr kill Mobility/T d 02-25 17:15:00 [place] sigala deficit: pt ransfer 14:50: [id number] 00 Balance/End knowledge/s PT/OT: Resolve 2018-12-29 Deejay yousif kill Balance/En d 02-25 17:15:00 [place] deficit: pt durance 14:50: [id number] 00 Environment knowledge/s PT/OT: Resolve 2018-12-29 Deejay hennessy kill Environmen d 02-25 17:15:00 [place] deficit: pt t 14:50: [id number] 00 Environment environment PT/OT: Resolve 2018-12-29 Deejay hennessy al barriers Environmen d 02-25 17:15:00 [place] t 14:50: [id number] 00 Gait/Locomo gait PT/OT: Resolve 2018-12-29 Deejay tisimran assistive Gait/Locom d 02-25 17:15:00 Garibay problems device otion 14:50: [id number] present 00 Gait/[place]ocomo knowledge/s PT/OT: Resolve 2018-12-29 Deejay ocampo kill Gait/Locom d 02-25 17:15:00 Garibay problems deficit: pt otion 14:50: [id number] 00 Cardio edema Cardiovasc Resolve 2018-05-27 Catia [...] d 2- 10:00:00 [place] deficit: pt 09:50: [id number] 00 Cardio knowledge/s Cardiovasc Resolve 2018-05-27 Vonnie kill ular d 2 10:00:00 [place] deficit: cg 09:50: [id number] 00 Respiratory lung sounds Respirator Resolve 2018-04-17 [place]nie deficit y d 2 09:00:00 [place] 09:50: [id number] 00 Medication oral med Meds Resolve 2018-04-24 [...] d 4- 09:00:00 [place] deficit: pt 10:00: [id number] 00 Social knowledge/s FEDE: Resolve 2018-2018-05-21 [facility] kill Social d 4- 10:00:00 [place] deficit - Services 10:00: [id number] pt 00 Social knowledge/s FEDE: Resolve 2018-2018-05-21 [facility] kill Social d 4- 10:00:00 [place] deficit - Services 10:00: [id number] cg 00 24 Hr Diet nutrition NT: 24Hr Active Silvana intake Diet 05-22 [place] deficit 09:50: [id number] 00 24 Hr Diet knowledge/s NT: 24Hr Resolve 2018-05-22 Silvana kill Diet d 05-22 09:50:00 [place] deficit - 09:50: [id number] pt 00 Nutritional food NT: Resolve 2018-05-22 Sil[place] Barrier storage/pre Barriers d 05-22 09:50:00 [place] p deficit 09:50: [id number] 00 Respiratory lung sounds Respirator Resolve 2018-05-27 Vonnie deficit y d 05-25 10:00:00 [place] 09:10: [id number] 00 Respiratory nebulizer Respirator Resolve 2018-05-27 Vonnie treatment y d 05-25 10:00:00 [place] in home 09:10: [id number] 00 Neuro impaired Neuro/Emot Resolve 2018-06-19 Catia toscano-ma ion d 05-27 09:00:00 [place] addison 10:00: 00 Test/Treatm tests Test/Injec Resolve 2018-06-09 Vonnie ent ordered t/Chele d 05-28 09:05:00 [place] [id number] Cardio knowledge/s Cardiovasc Resolve 2018-06-06 Catia blackar [...] 09:00: 00 Nutrition nutritional Nutrition Resolve 2018-05-29 Ctaia restriction d 4-12 09:00:00 [place] s 09:00: 00 Respiratory dyspnea Respirator Resolve 2018-06-10 Vonnie present y d 4-15 09:00:00 [place] 09:00: [id number] 00 Respiratory oxygen Respirator Resolve 2018-06-10 Vonnie treatments y d 4-15 09:00:00 [place] in home 09:00: [id number] 00 Respiratory lung sounds Respirator Resolve 2018-06-06 [place] deficit y d 4-15 12:00:00 [place] 09:00: [id number] 00 Endo/Viktor diabetic Endo/Viktor Resolve 2018-06-06 Catia [...] d 06-08 09:00:00 [place] deficit: pt 10:35: [id number] 00 24 Hr Diet nutrition NT: 24Hr Unknown Silvana intake Diet 06-08 [place] deficit 10:40: [id number] 00 24 Hr Diet knowledge/s NT: 24Hr Resolve 2018-06-08 Silvana kill Diet d 06-08 10:40:00 [place] deficit - 10:40: [id number] pt 00 Respiratory lung sounds Respirator Resolve 2018-06-10 Vonnie deficit y d 06-09 09:00:00 [place] 09:05: [id number] 00 Musculoskel requires Musculoske Resolve 2018-06-10 Vonnie etal human letal d 06-09 09:00:00 [place] assist to 09:05: [id number] leave home 00 Cardio edema Cardiovasc Resolve [...] d 06-11 10:20:00 [place] deficit: cg 10:00: [id number] 00 Nutrition changing Nutrition Resolve 2018-06-26 Catia weight/appe d 06-12 08:30:00 [place] tite 10:20: 00 Nutrition knowledge/s Nutrition Resolve 2018-06-12 Catia kill d 06-12 10:20:00 [place] deficit: pt 10:20: 00 Cardio edema Cardiovasc Resolve 2018-06-17 Vonnierea wilhelm d 06-15 09:00:00 [place] 09:15: [id number] 00 Cardio pacemaker/I Cardiovasc Resolve 2018-06-17 Vonnierea CINTRON ular d 06-15 09:00:00 [place] 09:15: [id number] 00 Respiratory dyspnea Respirator Resolve 2018-06-17 Vonnie present y d 06-15 09:00:00 [place] 09:15: [id number] 00 Respiratory oxygen Respirator Resolve 2018-06-19 Vonnie treatments y d 06-15 09:00:00 [place] in home 09:15: [id number] 00 Respiratory lung sounds Respirator Resolve 2018-06-17 [place] deficit y d 06-15 09:00:00 [place] 09:15: [id number] 00 Nutrition knowledge/s Nutrition Resolve 2018-06-17 Vonnie kill d 06-15 09:00:00 [place] deficit: pt 09:15: [id number] 00 Sensory impaired Sensory Resolve 2018-06-22 Catia [...] NT: 24Hr Unknown Silvana intake Diet 5- [place] deficit 15:30: [id number] 00 24 Hr Diet knowledge/s NT: 24Hr Resolve 2018-06-18 Silvana kill Diet d 5- 15:30:00 [place] deficit - 15:30: [id number] pt 00 Nutrition knowledge/s Nutrition Resolve 2018-06-19 Catia kill d 06-19 09:00:00 [place] deficit: pt 09:00: 00 Safety can be left Safety Resolve 2018-06-26 Catia alone for d 06-19 08:30:00 [place] only short 09:00: periods 00 Medication oral med Meds Resolve 2018-06-19 Catia assistance d 06-19 09:00:00 [place] required 09:00: 00 Cardio edema Cardiovasc Resolve 2018-06-26 Vonnie wilhelm d 06-22 08:30:00 [place] 09:15: [id number] 00 Cardio knowledge/s Cardiovasc Resolve 2018-07-24 Vonnieajith fletcher ular d 06-22 09:00:00 [place] deficit: pt 09:15: [id number] 00 Cardio pacemaker/I Cardiovasc Resolve 2018-06-26 Vonnierea CINTRON ular d 06-22 08:30:00 [place] 09:15: [id number] 00 Nutrition knowledge/s Nutrition Resolve 2018-06-24 Vonnie kill d 06-22 11:00:00 [place] deficit: pt 09:15: [id number] 00 Nutrition knowledge/s Nutrition Resolve 2018-06-24 Vonnie kill d 06-22 11:00:00 [place] deficit: cg 09:15: [id number] 00 Neuro impaired Neuro/Emot Resolve 2018-06-26 Vonnie decision-ma ion d 06-22 08:30:00 [place] addison 09:15: [id number] 00 Neuro knowledge/s Neuro/Emot Resolve 2018-06-22 Vonnie kill ion d 06-22 09:15:00 [place] deficit: pt 09:15: [id number] 00 Neuro knowledge/s Neuro/Emot Resolve 2018-06-24 [place]nie kill ion d 06-23 11:00:00 [place] deficit: pt 09:30: [id number] 00 Social financial FEDE: Active [facility] resource Social 06-23 [place] deficit Services 09:45: [id number] 00 Social knowledge/s FEDE: Resolve 2018-06-23 [facility] kill Social d 06-23 09:45:00 [facility] 09:45: [id number] pt 00 Respiratory oxygen Respirator Resolve 2018-06-26 [...] Vonnie wilhelm d 5-13 16:00:00 [place] 09:30: [id number] 00 Respiratory oxygen Respirator Resolve 2018-07-08 Vonnierea sánchez y d 5-13 16:00:00 [place] in home 09:30: [id number] 00 Nutrition knowledge/s Nutrition Resolve 2018-07-01 Vonnie fletcher d 5-13 10:00:00 [place] deficit: pt 09:30: [id number] 00 Cardio chest pain Cardiovasc Resolve 2018-07-08 Catia wilhelm d 5-15 16:00:00 [place] 10:00: 00 Cardio pacemaker/I Cardiovasc Resolve 2018-07-08 Catia wilhelm d -15 16:00:00 [place] 10:00: 00 Social knowledge/s FEDE: Resolve 2018-07-08 Catia Joy kill Social d 5-15 11:00:00 [place] deficit - Services 10:00: pt 00 Nutrition knowledge/s Nutrition Resolve 2018-07-08 Vonnie fletcher d -20 16:00:00 [place] deficit: pt 09:15: [id number] 00 Safety structural Safety Resolve 2018-07-23 [place] barriers d 07-08 11:15:00 [place] present 11:00: [id number] 00 Safety sanitation Safety Resolve 2018-07-23 [place] hazards d 07-08 11:15:00 [place] present 11:00: [id number] 00 Safety can be left Safety Resolve 2018-07-23 [place] alone for d 07-08 11:15:00 [place] only short 11:00: [id number] periods 00 Neuro impaired Neuro/Emot Active Catia antunez 07-08 [place] jaime 16:00: 00 Medication oral med Meds Resolve 2018-07-10 Catia assistance d 07-08 09:08:00 [place] required 16:00: 00 Medication injectable Meds Unknown Catia med 07-08 [place] assistance 16:00: required 00 Cardio edema Cardiovasc Resolve 2018-07-23 Vonnie ular d 07-10 11:15:00 [place] 09:08: [id number] 00 Cardio pacemaker/I Cardiovasc Resolve 2018-07-23 Vonnie CD ular d 07-10 11:15:00 [place] 09:08: [id number] 00 Respiratory oxygen Respirator Resolve 2018-08-14 Vonnie treatments y d 07-10 09:00:00 [place] in home 09:08: [id number] 00 Respiratory lung sounds Respirator Resolve 2018-07-24 [place]nie deficit y d 07-10 09:00:00 [place] 09:08: [id number] 00 Nutrition knowledge/s Nutrition Resolve 2018-07-23 Vonnie kill d 07-10 11:15:00 [place] deficit: pt 09:08: [id number] 00 Neuro knowledge/s Neuro/Emot Resolve 2018-07-23 Vonnie kill ion d 07-10 11:15:00 [place] deficit: pt 09:08: [id number] 00 Social knowledge/s FEDE: Resolve 2018-09-29 [facility] kill Social d 07-10 10:00:00 [place] deficit - Services 09:08: [id number] pt 00 Neuro memory Neuro/Emot Resolve 2018-07-23 Vonnie deficit ion d 07-14 11:15:00 [place] needing 09:18: [id number] supervision 00 Pain frequent Pain Mgmt Active Vonnie pain 07-17 [place] 09:40: [id number] 00 Nutrition knowledge/s Nutrition Resolve 2018-07-23 Vonnie kill d 07-17 11:15:00 [place] deficit: cg 09:40: [id number] 00 Medication injectable Meds Unknown Vonnie med 07-17 [place] assistance 09:40: [id number] required 00 Respiratory bloody Respirator Resolve 2018-2018-07-27 Vonnie sputum y d 6 09:00:00 [place] 09:07: [id number] 00 Respiratory dyspnea Respirator Resolve 2018-07-27 Catia [...] d 6-10 09:00:00 [place] deficit: pt 09:00: [id number] 00 Nutrition nutritional Nutrition Resolve 2018-2018-07-31 Vonnie restriction d 6-10 09:00:00 [place] s 09:00: [id number] 00 Cardio pacemaker/I Cardiovasc Resolve 2018-2018-07-31 Catia CINTRON ular d 6-14 09:00:00 [place] 09:00: 00 Respiratory CPAP Respirator Resolve 2018-07-31 Catia treatments y d 6-14 09:00:00 [place] in home 09:00: 00 Medication oral med Meds Resolve 2018-08-03 Catia assistance d 6-14 09:00:00 [place] required 09:00: 00 Nutrition knowledge/s Nutrition Unknown [place] kill 6-14 [place] deficit: pt 10:00: [id number] 00 Nutrition knowledge/s Nutrition Resolve 2018-08-07 [place] kill d 6-14 10:00:00 [place] deficit: cg 10:00: [id number] 00 Nutrition nutritional Nutrition Unknown [place] restriction 6-14 [place] s 10:00: [id number] 00 Safety can be left Safety Resolve 2018-08-07 [place] alone for d 6-14 10:00:00 [place] only short 10:00: [id number] periods 00 Nutrition knowledge/s Nutrition Unknown Catia kill 6-14 [place] deficit: pt 10:30: 00 Nutrition nutritional Nutrition Unknown Catia restriction 6-14 [place] s 10:30: 00 Respiratory CPAP Respirator Resolve 2018-08-07 Vonnie treatments y d 6-17 10:00:00 [place] in home 09:00: [id number] 00 Nutrition knowledge/s Nutrition Resolve 2018-08-07 Vonnie kill d 6-17 10:00:00 [place] deficit: pt 09:00: [id number] 00 Nutrition nutritional Nutrition Resolve 2018-08-07 Vonnie restriction d 6-17 10:00:00 [place] s 09:00: [id number] 00 Cardio pacemaker/I Cardiovasc Resolve 2018-08-10 Catia [...] factor d 08-14 09:00:00 Thomas present 09:00: [id number] 00 Safety fire risk Safety Resolve 2018-08-28 Jennifer Baum present d 08-14 09:00:00 Thomas 09:00: [id number] 00 Safety risk for Safety Resolve 2018-08-28 Jennifer Baum hospitaliza d 08-14 09:00:00 Thomas tion 09:00: [id number] 00 Medication oral med Meds Resolve 2018-08-14 Catia assistance d 08-14 09:00:00 [place] required 09:00: 00 Cardio pacemaker/I Cardiovasc Resolve 2018-2018-08-28 Catia blackar d 08-21 09:00:00 [place] 09:00: 00 Medication oral med Meds Resolve 2018-2018-08-28 Catia assistance d 7 09:00:00 [place] required 09:00: 00 Elimination nausea/vomi Eliminatio Resolve 2018-09-04 Catia bass n d 08-28 09:45:00 [place] 09:00: 00 Safety risk for [facility] 09:45: [id number] 00 Cardio pacemaker/I Cardiovasc Resolve 2018-09-11 Catia [...] Vonnie wilhelm d 09-18 10:20:00 [place] 10:00: [id number] 00 Safety risk for Safety Resolve 2018-09-18 Vonnie hospitaliza d 09-18 10:00:00 [place] tion 10:00: [id number] 00 Cardio chest pain Cardiovasc Resolve 2018-09-25 Vonnierea wilhelm d 09-25 10:10:00 [place] 10:10: [id number] 00 Cardio knowledge/s Cardiovasc Resolve 2018-09-25 Vonnie chance wilhelm d 09-25 10:10:00 [place] deficit: cg 10:10: [id number] 00 Neuro memory Neuro/Emot Resolve 2018-10-23 Vonnie deficit ion d 09-25 09:00:00 [place] needing 10:10: [id number] supervision 00 Safety risk for Safety Resolve 2018-09-25 Vonnie hospitaliza d 09-25 10:10:00 [place] tion 10:10: [id number] 00 Neuro depressive Neuro/Emot Resolve 2018-10-23 Catia feelings ion d 10-02 09:00:00 [place] present 09:00: 00 Safety risk for Safety Resolve 2018 Catia hospitaliza d 10-02 09:00:00 [place] tion 09:00: 00 Safety risk for Safety Resolve 2018-10-09 Vonnie hospitaliza d 10-06 10:20:00 [place] tion 11:40: [id number] 00 Elimination nausea/vomi Eliminatio Resolve 2018-10-16 Catia [...] FEDE: Active [facility] kill Social 10-28 [facility] deficit - Services 16:15: [id number] pt 00 Cardio pacemaker/I Cardiovasc Resolve 2018-10-30 [...] 2018-02 [facility] hospitaliza 02-21 [place] tion 10:15: [id number] 00 Safety sanitation Safety Resolve 2018-022018-12-30 Janet hazards d 1-05 10:00:00 Chaudhari present 15:10: [id number] 00 Safety fall risk Safety Resolve 2018-022018-12-24 Janet factor d 105 09:00:00 Chaudhari present 15:10: [id number] 00 Respiratory oxygen Respirator Resolve 2018-022018-12-30 Catia [...] restriction d 03-13 08:00:00 [place] s 15:30: [id number] 00 Respiratory oxygen Respirator Resolve 2018-022019-01-15 Catia [...] 2018-02 [place] restriction 2-20 [place] s 10:15: [id number] 00 Cardio pacemaker/I Cardiovasc Resolve 2018-022019-02-19 Catia [...] [place] 09:00: 00 Cardio pacemaker/I Cardiovasc Resolve 2019-2019-02-26 Catia CD ular d 1-10 08:30:00 [place] 08:30: 00 Respiratory oxygen Respirator Resolve 2019-0 2019-03-05 Catia treatments y d 1-17 09:00:00 [place] in home 09:00: 00 Respiratory CPAP Respirator Resolve 2019-2019-03-05 Catia treatments y d 1-17 09:00:00 [place] in home 09:00: 00 Sensory impaired Sensory Resolve 2019-2019-03-12 Catia verbal d -17 09:00:00 [place] communicati 09:00: on 00 Nutrition nutritional Nutrition Resolve 2019-2019-03-05 Catia restriction d 17 09:00:00 [place] s 09:00: 00 Respiratory oxygen Respirator Resolve 2019-2019-03-12 Catia treatments y d 1-24 09:00:00 [place] in home 09:00: 00 Respiratory CPAP Respirator Resolve 2019-2019-03-12 Catia treatments y d 124 09:00:00 [place] in home 09:00: 00 Sensory impaired Sensory Active 2019- Catia verbal 1-31 [place] communicati 09:00: on 00 Safety sanitation Safety Resolve 2019-2019-04-02 Catia hazards d 2-07 09:00:00 [place] present 09:00: 00 Cardio pacemaker/I Cardiovasc Resolve 2019-0 2019-04-08 Catia CD ular d 2-14 09:00:00 [place] 09:00: 00 Respiratory oxygen Respirator Active 2019-0 Catia treatments y 2-20 [place] in home 09:00: 00 Respiratory lung sounds Respirator Resolve 2019-0 2019-04-08 Catia deficit y d 2-20 09:00:00 [place] 09:00: 00 Respiratory CPAP Respirator Active 2020-0 Catia treatments y 2-20 [place] in home 09:00: 00 Allergies, Adverse Reactions, Alerts Allergy Allergy Status Severity Reaction(s) Onset Inactive Treating Comments Name Type Date Date Clinician shellfish Unknown Active Unknown Reaction 2017-05 Massiel Unknown -11 (Ajay Dunn [id number] IVP DYE Unknown Active Unknown Reaction 2017-05 Massiel Unknown -11 (Maria G) Shaun [id number] Medications Ordered Filled Start Stop Current Ordering [...] Unknown Unknown 30 mg 30 mg 02-19 MDErasmo tablet tablet Janumet 50 Janumet 50 No Midura Unknown Unknown mg-1,000 mg mg-1,000 mg 02-19 Erasmo ANDERSON tablet tablet Xarelto 20 Xarelto 20 2018- No Midura Unknown Unknown mg tablet mg tablet 02-19- Erasmo ANDERSON gabapentin gabapentin 2018- No Midura Unknown Unknown 300 mg 300 mg 02-19- Erasmo ANDERSON capsule capsule cetirizine cetirizine No Midura Unknown Unknown 10 mg 10 mg 02-19 MDErasmo tablet tablet spironolact spironolact 2018- No Midura [...] Unknown 20 mg 20 mg 02-19 ,Erasmo capsule,del capsule,del ayed ayed release release ferrous [...] No Midura Unknown Unknown Extra Extra 02-19 Erasmo ANDERSON Strength Strength 500 mg 500 mg tablet tablet Colace 100 Colace 100 2018- No Midura Unknown Unknown mg capsule mg capsule 02-19 Erasmo ANDERSON albuterol albuterol No Midura Unknown [...] No Maghaydah Unknown Unknown tablet tablet 05-05 ,Qutaybgeremias h cephALEXin cephALEXin 2018- No Midura Unknown [...] mg Maghaydah Unknown Unknown tablet tablet 05-27 ,Jenisetaybe magda bumetanide bumetanide 2018- Maghaydah Unknown Unknown 1 mg tablet 1 mg tablet 05-28 ,Qutaybe h bumetanide bumetanide No Maghaydah Unknown Unknown 1 mg tablet 1 mg tablet 06-01 ,Qutaybe h bumetanide bumetanide 2018- No Maghaydah Unknown Unknown 1 mg tablet 1 mg tablet 05-29 ,Qutaybe h torsemide torsemide Midura Unknown Unknown 20 mg 20 mg 06-05 MD,Erasmo tablet tablet patiromer patiromer 2018- No Kardon Unknown Unknown calcium calcium 06-05 ,Driss sorbitex sorbitex 8.4 gram 8.4 gram oral powder oral powder packet packet zinc oxide zinc oxide No Midura Unknown Unknown 16 % 16 % - Erasmo ANDERSON topical topical ointment ointment torsemide [...] Unknown Unknown 20 mg 20 mg 06-29- ,Qutaybe tablet tablet h Nasonex 50 Nasonex 50 No Maghaydah Unknown Unknown mcg/actuati mcg/actuati 06-25 ,Qutaybe on [place] on [place] h Cipro 500 Cipro 500 2018- No [...] 2 mg tablet 2 mg tablet -12 ,Erasmo metOLazone metOLazone 2018-02- No Maghaydah Unknown Unknown 2.5 mg 2.5 mg 02-23- MD,Qutaybe tablet tablet h metOLazone metOLazone 2018-02- [...] Observation Time Observation Value Comments SYSTOLIC mm[Hg] 2019-04-08 18:10:29 118 mm[Hg] mm[Hg] Method: Sit SYSTOLIC mm[Hg] 2019-02-12 18:09:34 140 mm[Hg] mm[Hg] Method: Stand DIASTOLIC mm[Hg] 2019-04-08 18:10:29 76 mm[Hg] mm[Hg] Method: Sit DIASTOLIC mm[Hg] 2019-02-12 18:09:34 80 mm[Hg] mm[Hg] Method: Stand PULSE 2019-04-08 18:10:29 82 /min /min RESP RATE 2019-04-08 18:10:29 16 /min /min TEMP 2019-04-08 18:10:29 96.8 [degF] Procedures This patient has no known procedures. Results This patient has no known results.
--- OUTSIDE RECORDS SUMMARY | 2019-05-13 12:15 | XMS REPORT ---
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 PT/OT: Resolve 2018-12-29 Catia yousif rdination [...] 02-25 17:15:00 [place] sigala device ransfer 14:50: [id number] present 00 Bed transfer PT/OT: Bed Resolve 2018-12-29 Deejay Mobility/Tr deficit: Mobility/T d 02-25 17:15:00 [place] sigala toilet/comm ransfer 14:50: [id number] 00 Bed transfer PT/OT: Bed Resolve 2018-12-29 Deejay Mobility/Tr deficit: Mobility/T d 02-25 17:15:00 [place] sigala shower/tub ransfer 14:50: [id number] 00 Bed knowledge/s PT/OT: Bed Resolve 2018-12-29 Deejay Mobility/Tr kill Mobility/T d 02-25 17:15:00 [place] sigala deficit: pt ransfer 14:50: [id number] 00 Balance/End knowledge/s PT/OT: Resolve 2018-12-29 Deejay yousif kill Balance/En d 02-25 17:15:00 [place] deficit: pt durance 14:50: [id number] 00 Environment knowledge/s PT/OT: Resolve 2018-12-29 Deejay hennessy kill Environmen d 02-25 17:15:00 [place] deficit: pt t 14:50: [id number] 00 Environment environment PT/OT: Resolve 2018-12-29 Deejay hennessy al barriers Environmen d 02-25 17:15:00 [place] t 14:50: [id number] 00 Gait/Locomo gait PT/OT: Resolve 2018-12-29 Deejay tisimran assistive Gait/Locom d 02-25 17:15:00 Garibay problems device otion 14:50: [id number] present 00 Gait/Locomo knowledge/s PT/OT: Resolve 2018-12-29 Deejay ocampo kill Gait/Locom d 02-25 17:15:00 Garibay problems deficit: pt otion 14:50: [id number] 00 Cardio edema Cardiovasc Resolve 2018-05-27 Catia [...] d 2- 10:00:00 [place] deficit: pt 09:50: [id number] 00 Cardio knowledge/s Cardiovasc Resolve 2018-05-27 Vonnie kill ular d 2 10:00:00 [place] deficit: cg 09:50: [id number] 00 Respiratory lung sounds Respirator Resolve 2018-04-17 [place]nie deficit y d 2 09:00:00 [place] 09:50: [id number] 00 Medication oral med Meds Resolve 2018-04-24 [...] d 4- 09:00:00 [place] deficit: pt 10:00: [id number] 00 Social knowledge/s FEDE: Resolve 2018-2018-05-21 [facility] kill Social d 4- 10:00:00 [place] deficit - Services 10:00: [id number] pt 00 Social knowledge/s FEDE: Resolve 2018-2018-05-21 [facility] kill Social d 4- 10:00:00 [place] deficit - Services 10:00: [id number] cg 00 24 Hr Diet nutrition NT: 24Hr Active Silvana intake Diet 05-22 [place] deficit 09:50: [id number] 00 24 Hr Diet knowledge/s NT: 24Hr Resolve 2018-05-22 Silvana kill Diet d 05-22 09:50:00 [place] deficit - 09:50: [id number] pt 00 Nutritional food NT: Resolve 2018-05-22 Silvana Barrier storage/pre Barriers d 05-22 09:50:00 [place] p deficit 09:50: [id number] 00 Respiratory lung sounds Respirator Resolve 2018-05-27 Vonnie deficit y d 05-25 10:00:00 [place] 09:10: [id number] 00 Respiratory nebulizer Respirator Resolve 2018-05-27 Vonnie treatment y d 05-25 10:00:00 [place] in home 09:10: [id number] 00 Neuro impaired Neuro/Emot Resolve 2018-06-19 Catia toscano-ma ion d 05-27 09:00:00 [place] addison 10:00: 00 Test/Treatm tests Test/Injec Resolve 2018-06-09 Vonnie ent ordered t/Chele d 05-28 09:05:00 [place] [id number] Cardio knowledge/s Cardiovasc Resolve 2018-06-06 Catia blackar [...] present y d 4-15 09:00:00 [place] 09:00: [id number] 00 Respiratory oxygen Respirator Resolve 2018-06-10 Vonnie treatments y d 4-15 09:00:00 [place] in home 09:00: [id number] 00 Respiratory lung sounds Respirator Resolve 2018-06-06 [place] deficit y d 4-15 12:00:00 [place] 09:00: [id number] 00 Endo/Viktor diabetic Endo/Viktor Resolve 2018-06-06 Catia [...] d 06-08 09:00:00 [place] deficit: pt 10:35: [id number] 00 24 Hr Diet nutrition NT: 24Hr Unknown Silvana intake Diet 06-08 [place] deficit 10:40: [id number] 00 24 Hr Diet knowledge/s NT: 24Hr Resolve 2018-06-08 Silvana kill Diet d 06-08 10:40:00 [place] deficit - 10:40: [id number] pt 00 Respiratory lung sounds Respirator Resolve 2018-06-10 [place]nie deficit y d 06-09 09:00:00 [place] 09:05: [id number] 00 Musculoskel requires Musculoske Resolve 2018-06-10 Vonnie etal human letal d 06-09 09:00:00 [place] assist to 09:05: [id number] leave home 00 Cardio edema Cardiovasc Resolve [...] d 06-11 10:20:00 [place] deficit: cg 10:00: [id number] 00 Nutrition changing Nutrition Resolve 2018-06-26 Catia weight/appe d 06-12 08:30:00 [place] tite 10:20: 00 Nutrition knowledge/s Nutrition Resolve 2018-06-12 Catia kill d 06-12 10:20:00 [place] deficit: pt 10:20: 00 Cardio edema Cardiovasc Resolve 2018-06-17 Vonnierea wilhelm d 06-15 09:00:00 [place] 09:15: [id number] 00 Cardio pacemaker/I Cardiovasc Resolve 2018-06-17 Vonnierea CINTRON ular d 06-15 09:00:00 [place] 09:15: [id number] 00 Respiratory dyspnea Respirator Resolve 2018-06-17 [place]nie present y d 06-15 09:00:00 [place] 09:15: [id number] 00 Respiratory oxygen Respirator Resolve 2018-06-19 Vonnie treatments y d 06-15 09:00:00 [place] in home 09:15: [id number] 00 Respiratory lung sounds Respirator Resolve 2018-06-17 [place] deficit y d 06-15 09:00:00 [place] 09:15: [id number] 00 Nutrition knowledge/s Nutrition Resolve 2018-06-17 [place]nie kill d 06-15 09:00:00 [place] deficit: pt 09:15: [id number] 00 Sensory impaired Sensory Resolve 2018-06-22 Catia [...] NT: 24Hr Unknown Silvana intake Diet 5- [place] deficit 15:30: [id number] 00 24 Hr Diet knowledge/s NT: 24Hr Resolve 2018-06-18 Silvana kill Diet d 5- 15:30:00 [place] deficit - 15:30: [id number] pt 00 Nutrition knowledge/s Nutrition Resolve 2018-06-19 Catia kill d 06-19 09:00:00 [place] deficit: pt 09:00: 00 Safety can be left Safety Resolve 2018-06-26 Catia alone for d 06-19 08:30:00 [place] only short 09:00: periods 00 Medication oral med Meds Resolve 2018-06-19 Catia assistance d 06-19 09:00:00 [place] required 09:00: 00 Cardio edema Cardiovasc Resolve 2018-06-26 Vonnie wilhelm d 06-22 08:30:00 [place] 09:15: [id number] 00 Cardio knowledge/s Cardiovasc Resolve 2018-07-24 Vonnieajith fletcher ular d 06-22 09:00:00 [place] deficit: pt 09:15: [id number] 00 Cardio pacemaker/I Cardiovasc Resolve 2018-06-26 Vonnierea CINTRON ular d 06-22 08:30:00 [place] 09:15: [id number] 00 Nutrition knowledge/s Nutrition Resolve 2018-06-24 [place]nie kill d 06-22 11:00:00 [place] deficit: pt 09:15: [id number] 00 Nutrition knowledge/s Nutrition Resolve 2018-06-24 Vonnie kill d 06-22 11:00:00 [place] deficit: cg 09:15: [id number] 00 Neuro impaired Neuro/Emot Resolve 2018-06-26 Vonnie decision-ma ion d 06-22 08:30:00 [place] addison 09:15: [id number] 00 Neuro knowledge/s Neuro/Emot Resolve 2018-06-22 Vonnie kill ion d 06-22 09:15:00 [place] deficit: pt 09:15: [id number] 00 Neuro knowledge/s Neuro/Emot Resolve 2018-06-24 [place] kill ion d 06-23 11:00:00 [place] deficit: pt 09:30: [id number] 00 Social financial FEDE: Active [facility] resource Social 06-23 [place] deficit Services 09:45: [id number] 00 Social knowledge/s FEDE: Resolve 2018-06-23 [facility] kill Social d 06-23 09:45:[facility] 09[facility]: [id number] pt 00 Respiratory oxygen Respirator Resolve 2018-06-26 [...] Vonnie wilhelm d 5-13 16:00:00 [place] 09:30: [id number] 00 Respiratory oxygen Respirator Resolve 2018-07-08 Vonnierea sánchez y d 5-13 16:00:00 [place] in home 09:30: [id number] 00 Nutrition knowledge/s Nutrition Resolve 2018-07-01 Vonnie fletcher d 5-13 10:00:00 [place] deficit: pt 09:30: [id number] 00 Cardio chest pain Cardiovasc Resolve 2018-07-08 Catia wilhelm d 5-15 16:00:00 [place] 10:00: 00 Cardio pacemaker/I Cardiovasc Resolve 2018-07-08 Catia wilhelm d -15 16:00:00 [place] 10:00: 00 Social knowledge/s FEDE: Resolve 2018-07-08 Catia Joy kill Social d 5-15 11:00:00 [place] deficit - Services 10:00: pt 00 Nutrition knowledge/s Nutrition Resolve 2018-07-08 Vonnie fletcher d -20 16:00:00 [place] deficit: pt 09:15: [id number] 00 Safety structural Safety Resolve 2018-07-23 [place] barriers d 07-08 11:15:00 [place] present 11:00: [id number] 00 Safety sanitation Safety Resolve 2018-07-23 [place] hazards d 07-08 11:15:00 [place] present 11:00: [id number] 00 Safety can be left Safety Resolve 2018-07-23 [place] alone for d 07-08 11:15:00 [place] only short 11:00: [id number] periods 00 Neuro impaired Neuro/Emot Active Catia antunez 07-08 [place] jaime 16:00: 00 Medication oral med Meds Resolve 2018-07-10 Catia assistance d 07-08 09:08:00 [place] required 16:00: 00 Medication injectable Meds Unknown Catia med 07-08 [place] assistance 16:00: required 00 Cardio edema Cardiovasc Resolve 2018-07-23 Vonnie ular d 07-10 11:15:00 [place] 09:08: [id number] 00 Cardio pacemaker/I Cardiovasc Resolve 2018-07-23 Vonnie CD ular d 07-10 11:15:00 [place] 09:08: [id number] 00 Respiratory oxygen Respirator Resolve 2018-08-14 Vonnie treatments y d 07-10 09:00:00 [place] in home 09:08: [id number] 00 Respiratory lung sounds Respirator Resolve 2018-07-24 [place]nie deficit y d 07-10 09:00:00 [place] 09:08: [id number] 00 Nutrition knowledge/s Nutrition Resolve 2018-07-23 Vonnie kill d 07-10 11:15:00 [place] deficit: pt 09:08: [id number] 00 Neuro knowledge/s Neuro/Emot Resolve 2018-07-23 [place]nie kill ion d 07-10 11:15:00 [place] deficit: pt 09:08: [id number] 00 Social knowledge/s FEDE: Resolve 2018-09-29 [facility] Services kill Social d 07-10 10:00:00 [place] deficit - Services 09:08: [id number] pt 00 Neuro memory Neuro/Emot Resolve 2018-07-23 [place]nie deficit ion d 07-14 11:15:00 [place] needing 09:18: [id number] supervision 00 Pain frequent Pain Mgmt Active Vonnie pain 07-17 [place] 09:40: [id number] 00 Nutrition knowledge/s Nutrition Resolve 2018-07-23 Vonnie kill d 07-17 11:15:00 [place] deficit: cg 09:40: [id number] 00 Medication injectable Meds Unknown Vonnie med 07-17 [place] assistance 09:40: [id number] required 00 Respiratory bloody Respirator Resolve 2018-2018-07-27 Vonnie sputum y d 6 09:00:00 [place] 09:07: [id number] 00 Respiratory dyspnea Respirator Resolve 2018-07-27 Catia [...] d 6-10 09:00:00 [place] deficit: pt 09:00: [id number] 00 Nutrition nutritional Nutrition Resolve 2018-2018-07-31 Vonnie restriction d 6-10 09:00:00 [place] s 09:00: [id number] 00 Cardio pacemaker/I Cardiovasc Resolve 2018-2018-07-31 Catia CINTRON ular d 6-14 09:00:00 [place] 09:00: 00 Respiratory CPAP Respirator Resolve 2018-07-31 Catia treatments y d 6-14 09:00:00 [place] in home 09:00: 00 Medication oral med Meds Resolve 2018-08-03 Catia assistance d 6-14 09:00:00 [place] required 09:00: 00 Nutrition knowledge/s Nutrition Unknown Roslyn kill 6-14 [place] deficit: pt 10:00: [id number] 00 Nutrition knowledge/s Nutrition Resolve 2018-08-07 [place] kill d 6-14 10:00:00 [place] deficit: cg 10:00: [id number] 00 Nutrition nutritional Nutrition Unknown [place] restriction 6-14 [place] s 10:00: [id number] 00 Safety can be left Safety Resolve 2018-08-07 [place] alone for d 6-14 10:00:00 [place] only short 10:00: [id number] periods 00 Nutrition knowledge/s Nutrition Unknown Catia kill 6-14 [place] deficit: pt 10:30: 00 Nutrition nutritional Nutrition Unknown Caita restriction 6-14 [place] s 10:30: 00 Respiratory CPAP Respirator Resolve 2018-08-07 Vonnie treatments y d 6-17 10:00:00 [place] in home 09:00: [id number] 00 Nutrition knowledge/s Nutrition Resolve 2018-08-07 Vonnie kill d 6-17 10:00:00 [place] deficit: pt 09:00: [id number] 00 Nutrition nutritional Nutrition Resolve 2018-08-07 Vonnie restriction d 6-17 10:00:00 [place] s 09:00: [id number] 00 Cardio pacemaker/I Cardiovasc Resolve 2018-08-10 Catia [...] factor d 08-14 09:00:00 Thomas present 09:00: [id number] 00 Safety fire risk Safety Resolve 2018-08-28 Jennifer Baum present d 08-14 09:00:00 Thomas 09:00: [id number] 00 Safety risk for Safety Resolve 2018-08-28 Jennifer Baum hospitaliza d 08-14 09:00:00 Thomas tion 09:00: [id number] 00 Medication oral med Meds Resolve 2018-08-14 Catia assistance d 08-14 09:00:00 [place] required 09:00: 00 Cardio pacemaker/I Cardiovasc Resolve 2018-2018-08-28 Catia blackar d 08-21 09:00:00 [place] 09:00: 00 Medication oral med Meds Resolve 2018-2018-08-28 Catia assistance d 7 09:00:00 [place] required 09:00: 00 Elimination nausea/vomi Eliminatio Resolve 2018-09-04 Catia bass n d 08-28 09:45:00 [place] 09:00: 00 [facility] 09:45: [id number] 00 Cardio pacemaker/I Cardiovasc Resolve 2018-09-11 Catia [...] Vonnie wilhelm d 09-18 10:20:00 [place] 10:00: [id number] 00 Safety risk for Safety Resolve 2018-09-18 Vonnie hospitaliza d 09-18 10:00:00 [place] tion 10:00: [id number] 00 Cardio chest pain Cardiovasc Resolve 2018-09-25 Vonnierea wilhelm d 09-25 10:10:00 [place] 10:10: [id number] 00 Cardio knowledge/s Cardiovasc Resolve 2018-09-25 Vonnie chance wilhelm d 09-25 10:10:00 [place] deficit: cg 10:10: [id number] 00 Neuro memory Neuro/Emot Resolve 2018-10-23 Vonnie deficit ion d 09-25 09:00:00 [place] needing 10:10: [id number] supervision 00 Safety risk for Safety Resolve 2018-09-25 Vonnie hospitaliza d 09-25 10:10:00 [place] tion 10:10: [id number] 00 Neuro depressive Neuro/Emot Resolve 2018-10-23 Catia feelings ion d 10-02 09:00:00 [place] present 09:00: 00 Safety risk for Safety Resolve 2018 Catia hospitaliza d 10-02 09:00:00 [place] tion 09:00: 00 Safety risk for Safety Resolve 2018-10-09 Vonnie hospitaliza d 10-06 10:20:00 [place] tion 11:40: [id number] 00 Elimination nausea/vomi Eliminatio Resolve 2018-10-16 Catia [...] FEDE: Active [facility] kill Social 10-28 [facility] deficit - Services 16:15: [id number] pt 00 Cardio pacemaker/I Cardiovasc Resolve 2018-10-30 [...] 09:00: 00 Respiratory CPAP Respirator Resolve 2018-022018-12-04 Caita treatments y d 0-18 09:00:00 [place] in [...] 2018-02 [facility] hospitaliza 02-21 [place] tion 10:15: [id number] 00 Safety sanitation Safety Resolve 2018-022018-12-30 Janet hazards d 1-05 10:00:00 Chaudhari present 15:10: [id number] 00 Safety fall risk Safety Resolve 2018-022018-12-24 Janet factor d 105 09:00:00 Chaudhari present 15:10: [id number] 00 Respiratory oxygen Respirator Resolve 2018-022018-12-30 Catia [...] restriction d 03-13 08:00:00 [place] s 15:30: [id number] 00 Respiratory oxygen Respirator Resolve 2018-022019-01-15 Catia [...] 2018-02 [place] restriction 2-20 [place] s 10:15: [id number] 00 Cardio pacemaker/I Cardiovasc Resolve 2018-022019-02-19 Catia [...] 2017-05 Massiel Unknown -11 (Maria G) Shaun [id number] IVP DYE Unknown Active Unknown Reaction 2017-05 Massiel Unknown -11 (Maria G) Shaun [id number] Medications Ordered Filled Start Stop Current Ordering [...] Unknown Unknown mcg/actuati mcg/actuati 06-25 MD,Qutaybe on [place] [address] [place] [facility] Cipro 500 Cipro 500 2018- No [...] mg mg (65 mg iron) iron) tablet,belkys tablet,beklys yed release yed release Xarelto 20 Xarelto [...]
--- OUTSIDE RECORDS SUMMARY | 2019-05-13 12:15 | XMS REPORT ---
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 Diagnosis Active Catia (current) (current) [place] use of use of anticoagula anticoagula nts nts retirement retirement Diagnosis Active Catia (current) (current) [place] use [...] 00 Safety risk for Safety Resolve 2018-03-13 aCtia fraseriza d 1-03 10:00:00 [place] tion 11:00: [...] 10:00:00 [place] deficit: cg 11:00: 00 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/OT: Resolve 2018-12-29 Catia yousif rdination Balance/En [...] 02-25 17:15:00 [place] sigala device ransfer 14:50: [id number] present 00 Bed transfer PT/OT: Bed Resolve 2018-12-29 Deejay Mobility/Tr deficit: Mobility/T d 02-25 17:15:00 [place] sigala toilet/comm ransfer 14:50: [id number] ode 00 Bed transfer PT/OT: Bed Resolve 2018-12-29 Deejay Mobility/Tr deficit: Mobility/T d 02-25 17:15:00 [place] sigala shower/tub ransfer 14:50: [id number] 00 Bed knowledge/s PT/OT: Bed Resolve 2018-12-29 Deejay Mobility/Tr kill Mobility/T d 02-25 17:15:00 [place] sigala deficit: pt ransfer 14:50: [id number] 00 Balance/End knowledge/s PT/OT: Resolve 2018-12-29 Deejay yousif kill Balance/En d 02-25 17:15:00 [place] deficit: pt durance 14:50: [id number] 00 Environment knowledge/s PT/OT: Resolve 2018-12-29 Deejay hennessy kill Environmen d 02-25 17:15:00 [place] deficit: pt t 14:50: [id number] 00 Environment environment PT/OT: Resolve 2018-12-29 Deejay hennessy al barriers Environmen d 02-25 17:15:00 [place] t 14:50: [id number] 00 Gait/Locomo gait PT/OT: Resolve 2018-12-29 Deejay tisimran assistive Gait/Locom d 02-25 17:15:00 Garibay problems device otion 14:50: [id number] present 00 Gait/Locomo knowledge/s PT/OT: Resolve 2018-12-29 Deejay ocampo kill Gait/Locom d 02-25 17:15:00 Garibay problems deficit: pt otion 14:50: [id number] 00 Cardio edema Cardiovasc Resolve 2018-05-27 Catia [...] d 2- 10:00:00 [place] deficit: pt 09:50: [id number] 00 Cardio knowledge/s Cardiovasc Resolve 2018-05-27 Vonnie kill ular d 2 10:00:00 [place] deficit: cg 09:50: [id number] 00 Respiratory lung sounds Respirator Resolve 2018-04-17 Vonnie deficit y d 2 09:00:00 [place] 09:50: [id number] 00 Medication oral med Meds Resolve 2018-04-24 [...] d 4- 09:00:00 [place] deficit: pt 10:00: [id number] 00 Social knowledge/s FEDE: Resolve 2018-2018-05-21 [facility] kill Social d 4- 10:00:00 [place] deficit - Services 10:00: [id number] pt 00 Social knowledge/s FEDE: Resolve 2018-2018-05-21 [facility] kill Social d 4- 10:00:00 [place] deficit - Services 10:00: [id number] cg 00 24 Hr Diet nutrition NT: 24Hr Active Silvana intake Diet 05-22 [place] deficit 09:50: [id number] 00 24 Hr Diet knowledge/s NT: 24Hr Resolve 2018-05-22 Silvana kill Diet d 05-22 09:50:00 [place] deficit - 09:50: [id number] pt 00 Nutritional food NT: Resolve 2018-05-22 Silvana Barrier storage/pre Barriers d 05-22 09:50:00 [place] p deficit 09:50: [id number] 00 Respiratory lung sounds Respirator Resolve 2018-05-27 Vonnie deficit y d 05-25 10:00:00 [place] 09:10: [id number] 00 Respiratory nebulizer Respirator Resolve 2018-05-27 Vonnie treatment y d 05-25 10:00:00 [place] in home 09:10: [id number] 00 Neuro impaired Neuro/Emot Resolve 2018-06-19 Catia toscano-ma ion d 05-27 09:00:00 [place] addison 10:00: 00 Test/Treatm tests Test/Injec Resolve 2018-06-09 Vonnie ent ordered t/Chele d 05-28 09:05:00 [place] [id number] Cardio knowledge/s Cardiovasc Resolve 2018-06-06 Catia blackar [...] present y d 4-15 09:00:00 [place] 09:00: [id number] 00 Respiratory oxygen Respirator Resolve 2018-06-10 Vonnie treatments y d 4-15 09:00:00 [place] in home 09:00: [id number] 00 Respiratory lung sounds Respirator Resolve 2018-06-06 Vonnie deficit y d 4-15 12:00:00 [place] 09:00: [id number] 00 Endo/Viktor diabetic Endo/Viktor Resolve 2018-06-06 Catia [...] d 06-08 09:00:00 [place] deficit: pt 10:35: [id number] 00 24 Hr Diet nutrition NT: 24Hr Unknown Silvana intake Diet 06-08 [place] deficit 10:40: [id number] 00 24 Hr Diet knowledge/s NT: 24Hr Resolve 2018-06-08 Silvana kill Diet d 06-08 10:40:00 [place] deficit - 10:40: [id number] pt 00 Respiratory lung sounds Respirator Resolve 2018-06-10 Vonnie deficit y d 06-09 09:00:00 [place] 09:05: [id number] 00 Musculoskel requires Musculoske Resolve 2018-06-10 Vonnie etal human letal d 06-09 09:00:00 [place] assist to 09:05: [id number] leave home 00 Cardio edema Cardiovasc Resolve [...] d 06-11 10:20:00 [place] deficit: cg 10:00: [id number] 00 Nutrition changing Nutrition Resolve 2018-06-26 Catia weight/appe d 06-12 08:30:00 [place] tite 10:20: 00 Nutrition knowledge/s Nutrition Resolve 2018-06-12 Catia kill d 06-12 10:20:00 [place] deficit: pt 10:20: 00 Cardio edema Cardiovasc Resolve 2018-06-17 Vonnierea wilhelm d 06-15 09:00:00 [place] 09:15: [id number] 00 Cardio pacemaker/I Cardiovasc Resolve 2018-06-17 Vonnierea CINTRON ular d 06-15 09:00:00 [place] 09:15: [id number] 00 Respiratory dyspnea Respirator Resolve 2018-06-17 Vonnie present y d 06-15 09:00:00 [place] 09:15: [id number] 00 Respiratory oxygen Respirator Resolve 2018-06-19 Vonnie treatments y d 06-15 09:00:00 [place] in home 09:15: [id number] 00 Respiratory lung sounds Respirator Resolve 2018-06-17 Vonnie deficit y d 06-15 09:00:00 [place] 09:15: [id number] 00 Nutrition knowledge/s Nutrition Resolve 2018-06-17 Vonnie kill d 06-15 09:00:00 [place] deficit: pt 09:15: [id number] 00 Sensory impaired Sensory Resolve 2018-06-22 Catia [...] NT: 24Hr Unknown Silvana intake Diet 5- [place] deficit 15:30: [id number] 00 24 Hr Diet knowledge/s NT: 24Hr Resolve 2018-06-18 Silvana kill Diet d 5- 15:30:00 [place] deficit - 15:30: [id number] pt 00 Nutrition knowledge/s Nutrition Resolve 2018-06-19 Catia kill d 06-19 09:00:00 [place] deficit: pt 09:00: 00 Safety can be left Safety Resolve 2018-06-26 Catia alone for d 06-19 08:30:00 [place] only short 09:00: periods 00 Medication oral med Meds Resolve 2018-06-19 Catia assistance d 06-19 09:00:00 [place] required 09:00: 00 Cardio edema Cardiovasc Resolve 2018-06-26 Vonnie wilhelm d 06-22 08:30:00 [place] 09:15: [id number] 00 Cardio knowledge/s Cardiovasc Resolve 2018-07-24 Vonnieajith fletcher ular d 06-22 09:00:00 [place] deficit: pt 09:15: [id number] 00 Cardio pacemaker/I Cardiovasc Resolve 2018-06-26 Vonnierea CINTRON ular d 06-22 08:30:00 [place] 09:15: [id number] 00 Nutrition knowledge/s Nutrition Resolve 2018-06-24 Vonnie kill d 06-22 11:00:00 [place] deficit: pt 09:15: [id number] 00 Nutrition knowledge/s Nutrition Resolve 2018-06-24 Vonnie kill d 06-22 11:00:00 [place] deficit: cg 09:15: [id number] 00 Neuro impaired Neuro/Emot Resolve 2018-06-26 Vonnie decision-ma ion d 06-22 08:30:00 [place] addison 09:15: [id number] 00 Neuro knowledge/s Neuro/Emot Resolve 2018-06-22 Vonnie kill ion d 06-22 09:15:00 [place] deficit: pt 09:15: [id number] 00 Neuro knowledge/s Neuro/Emot Resolve 2018-06-24 Vonnie kill ion d 06-23 11:00:00 [place] deficit: pt 09:30: [id number] 00 Social financial FEDE: Active [facility] resource Social 06-23 [place] deficit Services 09:45: [id number] 00 Social knowledge/s FEDE: Resolve 2018-06-23 [facility] kill Social d 06-23 09:45:00 [facility] 09:45: [id number] pt 00 Respiratory oxygen Respirator Resolve 2018-06-26 [...] Vonnie wilhelm d 5-13 16:00:00 [place] 09:30: [id number] 00 Respiratory oxygen Respirator Resolve 2018-07-08 Vonnierea sánchez y d 5-13 16:00:00 [place] in home 09:30: [id number] 00 Nutrition knowledge/s Nutrition Resolve 2018-07-01 Vonnie fletcher d 5-13 10:00:00 [place] deficit: pt 09:30: [id number] 00 Cardio chest pain Cardiovasc Resolve 2018-07-08 Catia wilhelm d 5-15 16:00:00 [place] 10:00: 00 Cardio pacemaker/I Cardiovasc Resolve 2018-07-08 Catia wilhelm d -15 16:00:00 [place] 10:00: 00 Social knowledge/s FEDE: Resolve 2018-07-08 Catia Joy kill Social d 5-15 11:00:00 [place] deficit - Services 10:00: pt 00 Nutrition knowledge/s Nutrition Resolve 2018-07-08 Vonnie fletcher d -20 16:00:00 [place] deficit: pt 09:15: [id number] 00 Safety structural Safety Resolve 2018-07-23 Roslyn barriers d 07-08 11:15:00 [place] present 11:00: [id number] 00 Safety sanitation Safety Resolve 2018-07-23 Roslyn hazards d 07-08 11:15:00 [place] present 11:00: [id number] 00 Safety can be left Safety Resolve 2018-07-23 Roslyn alone for d 07-08 11:15:00 [place] only short 11:00: [id number] periods 00 Neuro impaired Neuro/Emot Active Catia antunez 07-08 [place] jaime 16:00: 00 Medication oral med Meds Resolve 2018-07-10 Catia assistance d 07-08 09:08:00 [place] required 16:00: 00 Medication injectable Meds Unknown Catia med 07-08 [place] assistance 16:00: required 00 Cardio edema Cardiovasc Resolve 2018-07-23 Vonnie ular d 07-10 11:15:00 [place] 09:08: [id number] 00 Cardio pacemaker/I Cardiovasc Resolve 2018-07-23 Vonnie CD ular d 07-10 11:15:00 [place] 09:08: [id number] 00 Respiratory oxygen Respirator Resolve 2018-08-14 Vonnie treatments y d 07-10 09:00:00 [place] in home 09:08: [id number] 00 Respiratory lung sounds Respirator Resolve 2018-07-24 Vonnie deficit y d 07-10 09:00:00 [place] 09:08: [id number] 00 Nutrition knowledge/s Nutrition Resolve 2018-07-23 Vonnie kill d 07-10 11:15:00 [place] deficit: pt 09:08: [id number] 00 Neuro knowledge/s Neuro/Emot Resolve 2018-07-23 Vonnie kill ion d 07-10 11:15:00 [place] deficit: pt 09:08: [id number] 00 Social knowledge/s FEDE: Resolve 2018-09-29 [facility] Services kill Social d 07-10 10:00:00 [place] deficit - Services 09:08: [id number] pt 00 Neuro memory Neuro/Emot Resolve 2018-07-23 Vonnie deficit ion d 07-14 11:15:00 [place] needing 09:18: [id number] supervision 00 Pain frequent Pain Mgmt Active Vonnie pain 07-17 [place] 09:40: [id number] 00 Nutrition knowledge/s Nutrition Resolve 2018-07-23 Vonnie kill d 07-17 11:15:00 [place] deficit: cg 09:40: [id number] 00 Medication injectable Meds Unknown Vonnie med 07-17 [place] assistance 09:40: [id number] required 00 Respiratory bloody Respirator Resolve 2018-2018-07-27 Vonnie sputum y d 6 09:00:00 [place] 09:07: [id number] 00 Respiratory dyspnea Respirator Resolve 2018-07-27 Catia [...] d 6-10 09:00:00 [place] deficit: pt 09:00: [id number] 00 Nutrition nutritional Nutrition Resolve 2018-2018-07-31 Vonnie restriction d 6-10 09:00:00 [place] s 09:00: [id number] 00 Cardio pacemaker/I Cardiovasc Resolve 2018-2018-07-31 Catia CINTRON ular d 6-14 09:00:00 [place] 09:00: 00 Respiratory CPAP Respirator Resolve 2018-07-31 Catia treatments y d 6-14 09:00:00 [place] in home 09:00: 00 Medication oral med Meds Resolve 2018-08-03 Catia assistance d 6-14 09:00:00 [place] required 09:00: 00 Nutrition knowledge/s Nutrition Unknown Roslyn kill 6-14 [place] deficit: pt 10:00: [id number] 00 Nutrition knowledge/s Nutrition Resolve 2018-08-07 [place]lyn kill d 6-14 10:00:00 [place] deficit: cg 10:00: [id number] 00 Nutrition nutritional Nutrition Unknown Roslyn restriction 6-14 [place] s 10:00: [id number] 00 Safety can be left Safety Resolve 2018-08-07 Roslyn alone for d 6-14 10:00:00 [place] only short 10:00: [id number] periods 00 Nutrition knowledge/s Nutrition Unknown Catia kill 6-14 [place] deficit: pt 10:30: 00 Nutrition nutritional Nutrition Unknown Catia restriction 6-14 [place] s 10:30: 00 Respiratory CPAP Respirator Resolve 2018-08-07 Vonnie treatments y d 6-17 10:00:00 [place] in home 09:00: [id number] 00 Nutrition knowledge/s Nutrition Resolve 2018-08-07 Vonnie kill d 6-17 10:00:00 [place] deficit: pt 09:00: [id number] 00 Nutrition nutritional Nutrition Resolve 2018-08-07 Vonnie restriction d 6-17 10:00:00 [place] s 09:00: [id number] 00 Cardio pacemaker/I Cardiovasc Resolve 2018-08-10 Catia [...] factor d 08-14 09:00:00 Thomas present 09:00: [id number] 00 Safety fire risk Safety Resolve 2018-08-28 Jennifer Baum present d 08-14 09:00:00 Thomas 09:00: [id number] 00 Safety risk for Safety Resolve 2018-08-28 Jennifer Baum hospitaliza d 08-14 09:00:00 Thomas tion 09:00: [id number] 00 Medication oral med Meds Resolve 2018-08-14 [...] [facility] 09:45: [id number] 00 Cardio pacemaker/I Cardiovasc Resolve 2018-09-11 Catia [...] Vonnie wilhelm d 09-18 10:20:00 [place] 10:00: [id number] 00 Safety risk for Safety Resolve 2018-09-18 Vonnie hospitaliza d 09-18 10:00:00 [place] tion 10:00: [id number] 00 Cardio chest pain Cardiovasc Resolve 2018-09-25 Vonnierea wilhelm d 09-25 10:10:00 [place] 10:10: [id number] 00 Cardio knowledge/s Cardiovasc Resolve 2018-09-25 Vonnie chance wilhelm d 09-25 10:10:00 [place] deficit: cg 10:10: [id number] 00 Neuro memory Neuro/Emot Resolve 2018-10-23 Vonnie deficit ion d 09-25 09:00:00 [place] needing 10:10: [id number] supervision 00 Safety risk for Safety Resolve 2018-09-25 Vonnie hospitaliza d 09-25 10:10:00 [place] tion 10:10: [id number] 00 Neuro depressive Neuro/Emot Resolve 2018-10-23 Catia feelings ion d 10-02 09:00:00 [place] present 09:00: 00 Safety risk for Safety Resolve 2018 Catia hospitaliza d 10-02 09:00:00 [place] tion 09:00: 00 Safety risk for Safety Resolve 2018-10-09 Vonnie hospitaliza d 10-06 10:20:00 [place] tion 11:40: [id number] 00 Elimination nausea/vomi Eliminatio Resolve 2018-10-16 Catia [...] FEDE: Active [facility] kill Social 10-28 [facility] deficit - Services 16:15: [id number] pt 00 Cardio pacemaker/I Cardiovasc Resolve 2018-10-30 [...] 00 Cardio pacemaker/I Cardiovasc Resolve 2018-022019-01-07 Catia CINTRNO ular d 02-17 09:00:00 [place] 11:00: 00 Safety risk for Safety Active 2018-02 Roslyn hospitaliza 02-21 [place] tion 10:15: [id number] 00 Safety sanitation Safety Resolve 2018-022018-12-30 Janet hazards d 1-05 10:00:00 Chaudhari present 15:10: [id number] 00 Safety fall risk Safety Resolve 2018-022018-12-24 Janet factor d 105 09:00:00 Chaudhari present 15:10: [id number] 00 Respiratory oxygen Respirator Resolve 2018-022018-12-30 Catia [...] restriction d 03-13 08:00:00 [place] s 15:30: [id number] 00 Respiratory oxygen Respirator Resolve 2018-022019-01-15 Catia [...] 2018-02 [place]lyn restriction 2-20 [place] s 10:15: [id number] 00 Cardio pacemaker/I Cardiovasc Resolve 2018-022019-02-19 Catia [...] Resolve 2018-022019-02-12 Catia etal assistance letal d 2 09:00:00 [place] required 09:00: 00 Musculoskel requires Musculoske Resolve 2018-022019-02-12 Catia etal human letal d 227 09:00:00 [place] assist to 09:00: leave home 00 Cardio chest pain Cardiovasc Active Catia wilhelm 02-19 [place] 09:00: 00 Cardio pacemaker/I Cardiovasc Resolve 2020-0 2019-02-26 Catia CD ular d 1-10 08:30:00 [...] Nutrition Resolve 2019-0 2019-03-05 Catia restriction d 117 09:00:00 [place] s 09:00: 00 Respiratory oxygen Respirator Resolve 2020-0 2019-03-12 Catia treatments y d 1-24 09:00:00 [place] in home 09:00: 00 Respiratory CPAP Respirator Resolve 2019-0 2019-03-12 Catia treatments y d 1-24 09:00:00 [place] in home 09:00: 00 Sensory impaired Sensory Active 2019-0 Catia verbal 1-31 [place] communicati 09:00: on 00 Safety sanitation Safety Resolve 2019-0 2019-04-02 Catia hazards d 2-07 09:00:00 [place] present 09:00: 00 Cardio pacemaker/I Cardiovasc Active 2020-0 Catia CD ular 2-14 [place] 09:00: 00 Respiratory oxygen Respirator Active 2020-0 Catia treatments y 2-20 [place] in home 09:00: 00 Respiratory lung sounds Respirator Active 2020-0 Catia deficit y 2-20 [place] 09:00: 00 Respiratory CPAP Respirator Active 2020-0 Catia treatments y 2-20 [place] in home 09:00: 00 Allergies, Adverse Reactions, Alerts Allergy Allergy Status Severity Reaction(s) Onset Inactive Treating Comments Name Type Date Date Clinician shellfish Unknown Active Unknown Reaction 2017-05 Massiel Unknown -11 (Maria G) Shaun [id number] IVP DYE Unknown Active Unknown Reaction 2017-05 Massiel Unknown -11 (Maria G) Shaun [id number] Medications Ordered Filled Start Stop Current Ordering [...] Midura Unknown Unknown mg capsule mg capsule MD,Erasmo Maalox Maalox No Midura Unknown Unknown Maximum [...] thiamine No Midura Unknown Unknown HCl HCl - Erasmo ANDERSON (vitamin (vitamin B1) 100 mg [...] Unknown Unknown 05-15 MD,Erasmo zinc zinc 2018- Midura Unknown Unknown sulfate 220 sulfate 220 05-14 MD,Erasmo mg tablet mg tablet furosemide furosemide 2018- No Maghaydah Unknown Unknown 40 mg 40 mg 05-14 MD,Qutaybe tablet tablet h Lasix 40 mg Lasix 40 mg Maghaydah Unknown Unknown tablet tablet 05-27 MD,Qutaybe h bumetanide bumetanide 2018- Maghaydah Unknown Unknown 1 mg tablet 1 mg tablet 05-28 MD,Qutaybe h bumetanide bumetanide 2018- No Maghaydah Unknown Unknown 1 mg tablet 1 mg tablet 06-01 MD,Qutaybe h bumetanide bumetanide 2018- No Maghaydah Unknown Unknown 1 mg tablet 1 mg tablet 05-29 MD,Qutaybe h torsemide torsemide 2018- Midura Unknown Unknown 20 mg 20 mg [...] Unknown Unknown 20 mg 20 mg 06-23- ,Qutaybe tablet tablet h torsemide torsemide 2018- No Maghaydah Unknown Unknown 20 mg 20 mg 06-26 ,Qutaybe tablet tablet h torsemide torsemide 2018- No [place]hayd[place] Unknown Unknown 20 mg 20 mg 06-29- ,Qutaybe tablet tablet h Nasonex 50 Nasonex 50 No Maghaydah Unknown Unknown mcg/actuati mcg/actuati 06-25 ,Qutaybe on [address] on [place] h Cipro 500 Cipro 500 2018- No Midura Unknown Unknown mg tablet mg tablet 07-03 Erasmo ANDERSON torsemide torsemide 2018- No Maghaydah Unknown Unknown 20 mg 20 mg 07-21 08- ,Qutaybe tablet tablet h metOLazone metOLazone 2018- No Maghaydah Unknown Unknown 2.5 mg 2.5 mg 07-21 06-15 MD,Qutaybe tablet tablet h mometasone mometasone No Midura Unknown Unknown 0.1 % 0.1 % 08-04 ,Erasmo topical topical cream cream torsemide torsemide No Maghaydah Unknown Unknown 10 mg 10 mg 10-07 MD,Qutaybe tablet tablet h clonazePAM clonazePAM 2018- No Midura Unknown Unknown 0.5 mg 0.5 mg 10-2724 ,Erasmo tablet tablet Oxygen Oxygen No Midura [...] 2 mg tablet 2 mg tablet 03-31 Erasmo ANDERSON metOLazone metOLazone 2018-02- No Maghaydah Unknown Unknown 2.5 mg 2.5 mg 02-23 MD,Qutaybe tablet tablet h metOLazone metOLazone 2018-02- No Maghaydah Unknown Unknown 2.5 mg 2.5 mg 03-01 MD,Qutaybe tablet tablet h azithromyci azithromyci 2018-02- No Midura Unknown Unknown n 250 mg n 250 mg 02-28 ,Erasmo tablet tablet azithromyci azithromyci 2018-02- No Midura Unknown Unknown n 250 mg n 250 mg 02-23 11-14 MD,Erasmo tablet tablet metOLazone metOLazone 2018-02- No [place]hay[place] Unknown Unknown 2.5 mg 2.5 mg 03-08 12-16 MD,Qutaybe tablet tablet h metOLazone metOLazone 2018-02 [...]
--- OUTSIDE RECORDS SUMMARY | 2019-05-13 12:15 | XMS REPORT ---
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 PT/OT: Resolve 2018-12-29 Catia yousif rdination [...] 02-25 17:15:00 [place] sigala device ransfer 14:50: [id number] present 00 Bed transfer PT/OT: Bed Resolve 2018-12-29 Deejay Mobility/Tr deficit: Mobility/T d 02-25 17:15:00 [place] sigala toilet/comm ransfer 14:50: [id number] 00 Bed transfer PT/OT: Bed Resolve 2018-12-29 Deejay Mobility/Tr deficit: Mobility/T d 02-25 17:15:00 [place] sigala shower/tub ransfer 14:50: [id number] 00 Bed knowledge/s PT/OT: Bed Resolve 2018-12-29 Deejay Mobility/Tr kill Mobility/T d 02-25 17:15:00 [place] sigala deficit: pt ransfer 14:50: [id number] 00 Balance/End knowledge/s PT/OT: Resolve 2018-12-29 Deejay yousif kill Balance/En d 02-25 17:15:00 [place] deficit: pt durance 14:50: [id number] 00 Environment knowledge/s PT/OT: Resolve 2018-12-29 Deejay hennessy kill Environmen d 02-25 17:15:00 [place] deficit: pt t 14:50: [id number] 00 Environment environment PT/OT: Resolve 2018-12-29 Deejay hennessy al barriers Environmen d 02-25 17:15:00 [place] t 14:50: [id number] 00 Gait/Locomo gait PT/OT: Resolve 2018-12-29 Deejay tisimran assistive Gait/Locom d 02-25 17:15:00 Garibay problems device otion 14:50: [id number] present 00 Gait/Locomo knowledge/s PT/OT: Resolve 2018-12-29 Deejay ocampo kill Gait/Locom d 02-25 17:15:00 Garibay problems deficit: pt otion 14:50: [id number] 00 Cardio edema Cardiovasc Resolve 2018-05-27 Catia [...] 14:00: 00 Neuro anxiety Neuro/Emot Resolve 2018-04-09 Caita present ion d 2-21 14:00:00 [place] 14:00: 00 Cardio knowledge/s Cardiovasc Resolve 2018-05-27 Vonnie kill ular d 2- 10:00:00 [place] deficit: pt 09:50: [id number] 00 Cardio knowledge/s Cardiovasc Resolve 2018-05-27 Vonnie kill ular d 2 10:00:00 [place] deficit: cg 09:50: [id number] 00 Respiratory lung sounds Respirator Resolve 2018-04-17 Vonnie deficit y d 2 09:00:00 [place] 09:50: [id number] 00 Medication oral med Meds Resolve 2018-04-24 [...] d 4- 09:00:00 [place] deficit: pt 10:00: [id number] 00 Social knowledge/s FEDE: Resolve 2018-2018-05-21 [facility] kill Social d 4- 10:00:00 [place] deficit - Services 10:00: [id number] pt 00 Social knowledge/s FEDE: Resolve 2018-2018-05-21 [facility] kill Social d 4- 10:00:00 [place] deficit - Services 10:00: [id number] cg 00 24 Hr Diet nutrition NT: 24Hr Active Silvana intake Diet 05-22 [place] deficit 09:50: [id number] 00 24 Hr Diet knowledge/s NT: 24Hr Resolve 2018-05-22 Silvana kill Diet d 05-22 09:50:00 [place] deficit - 09:50: [id number] pt 00 Nutritional food NT: Resolve 2018-05-22 Silvana Barrier storage/pre Barriers d 05-22 09:50:00 [place] p deficit 09:50: [id number] 00 Respiratory lung sounds Respirator Resolve 2018-05-27 Vonnie deficit y d 05-25 10:00:00 [place] 09:10: [id number] 00 Respiratory nebulizer Respirator Resolve 2018-05-27 Vonnie treatment y d 05-25 10:00:00 [place] in home 09:10: [id number] 00 Neuro impaired Neuro/Emot Resolve 2018-06-19 Catia toscano-ma ion d 05-27 09:00:00 [place] addison 10:00: 00 Test/Treatm tests Test/Injec Resolve 2018-06-09 Vonnie ent ordered t/Chele d 05-28 09:05:00 [place] [id number] Cardio knowledge/s Cardiovasc Resolve 2018-06-06 Catia blackar [...] present y d 4-15 09:00:00 [place] 09:00: [id number] 00 Respiratory oxygen Respirator Resolve 2018-06-10 Vonnie treatments y d 4-15 09:00:00 [place] in home 09:00: [id number] 00 Respiratory lung sounds Respirator Resolve 2018-06-06 [place]nie deficit y d 4-15 12:00:00 [place] 09:00: [id number] 00 Endo/Viktor diabetic Endo/Viktor Resolve 2018-06-06 Catia [...] 00 issue Nutrition knowledge/s Nutrition Resolve 2018-06-06 Catai kill d 06-06 12:00:00 [place] deficit: pt 12:00: 00 Nutrition knowledge/s Nutrition Resolve 2018-06-10 Vonnie kill d 06-08 09:00:00 [place] deficit: pt 10:35: [id number] 00 24 Hr Diet nutrition NT: 24Hr Unknown Silvana intake Diet 06-08 [place] deficit 10:40: [id number] 00 24 Hr Diet knowledge/s NT: 24Hr Resolve 2018-06-08 Silvana kill Diet d 06-08 10:40:00 [place] deficit - 10:40: [id number] pt 00 Respiratory lung sounds Respirator Resolve 2018-06-10 Vonnie deficit y d 06-09 09:00:00 [place] 09:05: [id number] 00 Musculoskel requires Musculoske Resolve 2018-06-10 Vonnie etal human letal d 06-09 09:00:00 [place] assist to 09:05: [id number] leave home 00 Cardio edema Cardiovasc Resolve [...] d 06-11 10:20:00 [place] deficit: cg 10:00: [id number] 00 Nutrition changing Nutrition Resolve 2018-06-26 Catia weight/appe d 06-12 08:30:00 [place] tite 10:20: 00 Nutrition knowledge/s Nutrition Resolve 2018-06-12 Catia kill d 06-12 10:20:00 [place] deficit: pt 10:20: 00 Cardio edema Cardiovasc Resolve 2018-06-17 Vonnierea wilhelm d 06-15 09:00:00 [place] 09:15: [id number] 00 Cardio pacemaker/I Cardiovasc Resolve 2018-06-17 Vonnierea CINTRON ular d 06-15 09:00:00 [place] 09:15: [id number] 00 Respiratory dyspnea Respirator Resolve 2018-06-17 Vonnie present y d 06-15 09:00:00 [place] 09:15: [id number] 00 Respiratory oxygen Respirator Resolve 2018-06-19 Vonnie treatments y d 06-15 09:00:00 [place] in home 09:15: [id number] 00 Respiratory lung sounds Respirator Resolve 2018-06-17 [place]nie deficit y d 06-15 09:00:00 [place] 09:15: [id number] 00 Nutrition knowledge/s Nutrition Resolve 2018-06-17 Vonnie kill d 06-15 09:00:00 [place] deficit: pt 09:15: [id number] 00 Sensory impaired Sensory Resolve 2018-06-22 Catia [...] NT: 24Hr Unknown Silvana intake Diet 5- [place] deficit 15:30: [id number] 00 24 Hr Diet knowledge/s NT: 24Hr Resolve 2018-06-18 Silvana kill Diet d 5- 15:30:00 [place] deficit - 15:30: [id number] pt 00 Nutrition knowledge/s Nutrition Resolve 2018-06-19 Catia kill d 06-19 09:00:00 [place] deficit: pt 09:00: 00 Safety can be left Safety Resolve 2018-06-26 Catia alone for d 06-19 08:30:00 [place] only short 09:00: periods 00 Medication oral med Meds Resolve 2018-06-19 Catia assistance d 06-19 09:00:00 [place] required 09:00: 00 Cardio edema Cardiovasc Resolve 2018-06-26 Vonnie wilhelm d 06-22 08:30:00 [place] 09:15: [id number] 00 Cardio knowledge/s Cardiovasc Resolve 2018-07-24 Vonnieajith fletcher ular d 06-22 09:00:00 [place] deficit: pt 09:15: [id number] 00 Cardio pacemaker/I Cardiovasc Resolve 2018-06-26 Vonnierea CINTRON ular d 06-22 08:30:00 [place] 09:15: [id number] 00 Nutrition knowledge/s Nutrition Resolve 2018-06-24 Vonnie kill d 06-22 11:00:00 [place] deficit: pt 09:15: [id number] 00 Nutrition knowledge/s Nutrition Resolve 2018-06-24 Vonnie kill d 06-22 11:00:00 [place] deficit: cg 09:15: [id number] 00 Neuro impaired Neuro/Emot Resolve 2018-06-26 Vonnie decision-ma ion d 06-22 08:30:00 [place] addison 09:15: [id number] 00 Neuro knowledge/s Neuro/Emot Resolve 2018-06-22 Vonnie kill ion d 06-22 09:15:00 [place] deficit: pt 09:15: [id number] 00 Neuro knowledge/s Neuro/Emot Resolve 2018-06-24 Vonnie kill ion d 06-23 11:00:00 [place] deficit: pt 09:30: [id number] 00 Social financial FEDE: Active [facility] resource Social 06-23 [place] deficit Services 09:45: [id number] 00 Social knowledge/s FEDE: Resolve 2018-06-23 [facility] kill Social d 06-23 09:45:[facility] 09[facility]45: [id number] pt 00 Respiratory oxygen Respirator Resolve 2018-06-26 [...] Vonnie wilhelm d 5-13 16:00:00 [place] 09:30: [id number] 00 Respiratory oxygen Respirator Resolve 2018-07-08 Vonnierea sánchez y d 5-13 16:00:00 [place] in home 09:30: [id number] 00 Nutrition knowledge/s Nutrition Resolve 2018-07-01 Vonnie fletcher d 5-13 10:00:00 [place] deficit: pt 09:30: [id number] 00 Cardio chest pain Cardiovasc Resolve 2018-07-08 Catia wilhelm d 5-15 16:00:00 [place] 10:00: 00 Cardio pacemaker/I Cardiovasc Resolve 2018-07-08 Catia wilhelm d -15 16:00:00 [place] 10:00: 00 Social knowledge/s FEDE: Resolve 2018-07-08 Catia Joy kill Social d 5-15 11:00:00 [place] deficit - Services 10:00: pt 00 Nutrition knowledge/s Nutrition Resolve 2018-07-08 Vonnie fletcher d -20 16:00:00 [place] deficit: pt 09:15: [id number] 00 Safety structural Safety Resolve 2018-07-23 Roslyn barriers d 07-08 11:15:00 [place] present 11:00: [id number] 00 Safety sanitation Safety Resolve 2018-07-23 Roslyn hazards d 07-08 11:15:00 [place] present 11:00: [id number] 00 Safety can be left Safety Resolve 2018-07-23 Roslyn alone for d 07-08 11:15:00 [place] only short 11:00: [id number] periods 00 Neuro impaired Neuro/Emot Active Catia antunez 07-08 [place] jaime 16:00: 00 Medication oral med Meds Resolve 2018-07-10 Catia assistance d 07-08 09:08:00 [place] required 16:00: 00 Medication injectable Meds Unknown Catia med 07-08 [place] assistance 16:00: required 00 Cardio edema Cardiovasc Resolve 2018-07-23 Vonnie ular d 07-10 11:15:00 [place] 09:08: [id number] 00 Cardio pacemaker/I Cardiovasc Resolve 2018-07-23 Vonnie CD ular d 07-10 11:15:00 [place] 09:08: [id number] 00 Respiratory oxygen Respirator Resolve 2018-08-14 Vonnie treatments y d 07-10 09:00:00 [place] in home 09:08: [id number] 00 Respiratory lung sounds Respirator Resolve 2018-07-24 Vonnie deficit y d 07-10 09:00:00 [place] 09:08: [id number] 00 Nutrition knowledge/s Nutrition Resolve 2018-07-23 Vonnie kill d 07-10 11:15:00 [place] deficit: pt 09:08: [id number] 00 Neuro knowledge/s Neuro/Emot Resolve 2018-07-23 Vonnie kill ion d 07-10 11:15:00 [place] deficit: pt 09:08: [id number] 00 Social knowledge/s FEDE: Resolve 2018-09-29 [facility] Services kill Social d 07-10 10:00:00 [place] deficit - Services 09:08: [id number] pt 00 Neuro memory Neuro/Emot Resolve 2018-07-23 Vonnie deficit ion d 07-14 11:15:00 [place] needing 09:18: [id number] supervision 00 Pain frequent Pain Mgmt Active Vonnie pain 07-17 [place] 09:40: [id number] 00 Nutrition knowledge/s Nutrition Resolve 2018-07-23 Vonnie kill d 07-17 11:15:00 [place] deficit: cg 09:40: [id number] 00 Medication injectable Meds Unknown Vonnie med 07-17 [place] assistance 09:40: [id number] required 00 Respiratory bloody Respirator Resolve 2018-2018-07-27 Vonnie sputum y d 6 09:00:00 [place] 09:07: [id number] 00 Respiratory dyspnea Respirator Resolve 2018-07-27 Catia [...] d 6-10 09:00:00 [place] deficit: pt 09:00: [id number] 00 Nutrition nutritional Nutrition Resolve 2018-2018-07-31 Vonnie restriction d 6-10 09:00:00 [place] s 09:00: [id number] 00 Cardio pacemaker/I Cardiovasc Resolve 2018-2018-07-31 Catia CINTRON ular d 6-14 09:00:00 [place] 09:00: 00 Respiratory CPAP Respirator Resolve 2018-07-31 Catia treatments y d 6-14 09:00:00 [place] in home 09:00: 00 Medication oral med Meds Resolve 2018-08-03 Catia assistance d 6-14 09:00:00 [place] required 09:00: 00 Nutrition knowledge/s Nutrition Unknown Roslyn kill 6-14 [place] deficit: pt 10:00: [id number] 00 Nutrition knowledge/s Nutrition Resolve 2018-08-07 Roslyn kill d 6-14 10:00:00 [place] deficit: cg 10:00: [id number] 00 Nutrition nutritional Nutrition Unknown Roslyn restriction 6-14 [place] s 10:00: [id number] 00 Safety can be left Safety Resolve 2018-08-07 Roslyn alone for d 6-14 10:00:00 [place] only short 10:00: [id number] periods 00 Nutrition knowledge/s Nutrition Unknown Catia kill 6-14 [place] deficit: pt 10:30: 00 Nutrition nutritional Nutrition Unknown Catia restriction 6-14 [place] s 10:30: 00 Respiratory CPAP Respirator Resolve 2018-08-07 Vonnie treatments y d 6-17 10:00:00 [place] in home 09:00: [id number] 00 Nutrition knowledge/s Nutrition Resolve 2018-08-07 Vonnie kill d 6-17 10:00:00 [place] deficit: pt 09:00: [id number] 00 Nutrition nutritional Nutrition Resolve 2018-08-07 Vonnie restriction d 6-17 10:00:00 [place] s 09:00: [id number] 00 Cardio pacemaker/I Cardiovasc Resolve 2018-08-10 Catia [...] factor d 08-14 09:00:00 Thomas present 09:00: [id number] 00 Safety fire risk Safety Resolve 2018-08-28 Jennifer Baum present d 08-14 09:00:00 Thomas 09:00: [id number] 00 Safety risk for Safety Resolve 2018-08-28 Jennifer Baum hospitaliza d 08-14 09:00:00 Thomas tion 09:00: [id number] 00 Medication oral med Meds Resolve 2018-08-14 Catia assistance d 08-14 09:00:00 [place] required 09:00: 00 Cardio pacemaker/I Cardiovasc Resolve 2018-2018-08-28 Catia blackar d 08-21 09:00:00 [place] 09:00: 00 Medication oral med Meds Resolve 2018-2018-08-28 Catia assistance d 7 09:00:00 [place] required 09:00: 00 Elimination nausea/vomi Eliminatio Resolve 2018-09-04 Catia bass n d 08-28 09:45:00 [place] 09:00: 00 Safety risk for [facility] 09:45: [id number] 00 Cardio pacemaker/I Cardiovasc Resolve 2018-09-11 Catia [...] Vonnie wilhelm d 09-18 10:20:00 [place] 10:00: [id number] 00 Safety risk for Safety Resolve 2018-09-18 Vonnie hospitaliza d 09-18 10:00:00 [place] tion 10:00: [id number] 00 Cardio chest pain Cardiovasc Resolve 2018-09-25 Vonnierea wilhelm d 09-25 10:10:00 [place] 10:10: [id number] 00 Cardio knowledge/s Cardiovasc Resolve 2018-09-25 Vonnie chance wilhelm d 09-25 10:10:00 [place] deficit: cg 10:10: [id number] 00 Neuro memory Neuro/Emot Resolve 2018-10-23 Vonnie deficit ion d 09-25 09:00:00 [place] needing 10:10: [id number] supervision 00 Safety risk for Safety Resolve 2018-09-25 Vonnie hospitaliza d 09-25 10:10:00 [place] tion 10:10: [id number] 00 Neuro depressive Neuro/Emot Resolve 2018-10-23 Catia feelings ion d 10-02 09:00:00 [place] present 09:00: 00 Safety risk for Safety Resolve 2018 Catia hospitaliza d 10-02 09:00:00 [place] tion 09:00: 00 Safety risk for Safety Resolve 2018-10-09 Vonnie hospitaliza d 10-06 10:20:00 [place] tion 11:40: [id number] 00 Elimination nausea/vomi Eliminatio Resolve 2018-10-16 Catia [...] FEDE: Active [facility] kill Social 10-28 [facility] deficit - Services 16:15: [id number] pt 00 Cardio pacemaker/I Cardiovasc Resolve 2018-10-30 [...] 2018-02 Roslyn hospitaliza 02-21 [place] tion 10:15: [id number] 00 Safety sanitation Safety Resolve 2018-022018-12-30 Janet hazards d 1-05 10:00:00 Chaudhari present 15:10: [id number] 00 Safety fall risk Safety Resolve 2018-022018-12-24 Janet factor d 105 09:00:00 Chaudhari present 15:10: [id number] 00 Respiratory oxygen Respirator Resolve 2018-022018-12-30 Catia [...] restriction d 03-13 08:00:00 [place] s 15:30: [id number] 00 Respiratory oxygen Respirator Resolve 2018-022019-01-15 Catia [...] 2018-02 Roslyn restriction 2-20 [place] s 10:15: [id number] 00 Cardio pacemaker/I Cardiovasc Resolve 2018-022019-02-19 Catia [...] Reaction 2017-05 Massiel Unknown -11 (Ajay Dunn [id number] IVP DYE Unknown Active Unknown Reaction 2017-05 Massiel Unknown -11 (Maria G) Shaun [id number] Medications Ordered Filled Start Stop Current Ordering [...] Unknown Unknown sulfate 325 sulfate 325 05-14 MD,Eramso mg (65 mg mg (65 mg iron) [...] Unknown Unknown mcg/actuati mcg/actuati 06-25 ,[place] Cipro 500 Cipro 500 2018- No [...]
--- OUTSIDE RECORDS SUMMARY | 2019-05-13 12:16 | XMS REPORT ---
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 PT/OT: Resolve 2018-12-29 Catia yousif rdination [...] 02-25 17:15:00 [place] sigala device ransfer 14:50: [id number] present 00 Bed transfer PT/OT: Bed Resolve 2018-12-29 Deejay Mobility/Tr deficit: Mobility/T d 02-25 17:15:00 [place] sigala toilet/comm ransfer 14:50: [id number] ode 00 Bed transfer PT/OT: Bed Resolve 2018-12-29 Deejay Mobility/Tr deficit: Mobility/T d 02-25 17:15:00 [place] sigala shower/tub ransfer 14:50: [id number] 00 Bed knowledge/s PT/OT: Bed Resolve 2018-12-29 Deejay Mobility/Tr kill Mobility/T d 02-25 17:15:00 [place] sigala deficit: pt ransfer 14:50: [id number] 00 Balance/End knowledge/s PT/OT: Resolve 2018-12-29 Deejay yousif kill Balance/En d 02-25 17:15:00 [place] deficit: pt durance 14:50: [id number] 00 Environment knowledge/s PT/OT: Resolve 2018-12-29 Deejay hennessy kill Environmen d 02-25 17:15:00 [place] deficit: pt t 14:50: [id number] 00 Environment environment PT/OT: Resolve 2018-12-29 Deejay hennessy al barriers Environmen d 02-25 17:15:00 [place] t 14:50: [id number] 00 Gait/Locomo gait PT/OT: Resolve 2018-12-29 Deejay tisimran assistive Gait/Locom d 02-25 17:15:00 Garibay problems device otion 14:50: [id number] present 00 Gait/Locomo knowledge/s PT/OT: Resolve 2018-12-29 Deejay ocampo kill Gait/Locom d 02-25 17:15:00 Garibay problems deficit: pt otion 14:50: [id number] 00 Cardio edema Cardiovasc Resolve 2018-05-27 Catia [...] d 2- 10:00:00 [place] deficit: pt 09:50: [id number] 00 Cardio knowledge/s Cardiovasc Resolve 2018-05-27 Vonnie kill ular d 2 10:00:00 [place] deficit: cg 09:50: [id number] 00 Respiratory lung sounds Respirator Resolve 2018-04-17 Vonnie deficit y d 2 09:00:00 [place] 09:50: [id number] 00 Medication oral med Meds Resolve 2018-04-24 [...] d 4- 09:00:00 [place] deficit: pt 10:00: [id number] 00 Social knowledge/s FEDE: Resolve 2018-2018-05-21 [facility] kill Social d 4- 10:00:00 [place] deficit - Services 10:00: [id number] pt 00 Social knowledge/s FEDE: Resolve 2018-2018-05-21 [facility] kill Social d 4- 10:00:00 [place] deficit - Services 10:00: [id number] cg 00 24 Hr Diet nutrition NT: 24Hr Active Silvana intake Diet 05-22 English deficit 09:50: [id number] 00 24 Hr Diet knowledge/s NT: 24Hr Resolve 2018-05-22 Silvana kill Diet d 05-22 09:50:00 English deficit - 09:50: [id number] pt 00 Nutritional food NT: Resolve 2018-05-22 Silvana Barrier storage/pre Barriers d 05-22 09:50:00 English p deficit 09:50: [id number] Respiratory lung sounds Respirator Resolve 2018-05-27 Vonnie deficit y d 05-25 10:00:00 [place] 09:10: [id number] 00 Respiratory nebulizer Respirator Resolve 2018-05-27 Vonnie treatment y d 05-25 10:00:00 [place] in home 09:10: [id number] 00 Neuro impaired Neuro/Emot Resolve 2018-06-19 Catia toscano-ma ion d 05-27 09:00:00 Sherman addison 10:00: 00 Test/Treatm tests Test/Injec Resolve 2018-06-09 Vonnie ent ordered t/Chele d 05-28 09:05:00 [place] [id number] Cardio knowledge/s Cardiovasc Resolve 2018-06-06 Catia blackar [...] present y d 4-15 09:00:00 [place] 09:00: [id number] 00 Respiratory oxygen Respirator Resolve 2018-06-10 Vonnie treatments y d 4-15 09:00:00 [place] in home 09:00: [id number] 00 Respiratory lung sounds Respirator Resolve 2018-06-06 Vonnie deficit y d 4-15 12:00:00 [place] 09:00: [id number] 00 Endo/Viktor diabetic Endo/Viktor Resolve 2018-06-06 Catia [...] d 06-08 09:00:00 [place] deficit: pt 10:35: [id number] 00 24 Hr Diet nutrition NT: 24Hr Unknown Silvana intake Diet 06-08 English deficit 10:40: [id number] 00 24 Hr Diet knowledge/s NT: 24Hr Resolve 2018-06-08 Silvana kill Diet d 06-08 10:40:00 English deficit - 10:40: [id number] pt 00 Respiratory lung sounds Respirator Resolve 2018-06-10 Vonnie deficit y d 06-09 09:00:00 [place] 09:05: [id number] 00 Musculoskel requires Musculoske Resolve 2018-06-10 Vonnie etal human letal d 06-09 09:00:00 [place] assist to 09:05: [id number] leave home 00 Cardio edema Cardiovasc Resolve [...] d 06-11 10:20:00 [place] deficit: cg 10:00: [id number] 00 Nutrition changing Nutrition Resolve 2018-06-26 Catia weight/appe d 06-12 08:30:00 [place] tite 10:20: 00 Nutrition knowledge/s Nutrition Resolve 2018-06-12 Catia kill d 06-12 10:20:00 [place] deficit: pt 10:20: 00 Cardio edema Cardiovasc Resolve 2018-06-17 Vonnierea wilhelm d 06-15 09:00:00 [place] 09:15: [id number] 00 Cardio pacemaker/I Cardiovasc Resolve 2018-06-17 Vonnierea CINTRON ular d 06-15 09:00:00 [place] 09:15: [id number] 00 Respiratory dyspnea Respirator Resolve 2018-06-17 Vonnie present y d 06-15 09:00:00 [place] 09:15: [id number] 00 Respiratory oxygen Respirator Resolve 2018-06-19 Vonnie treatments y d 06-15 09:00:00 [place] in home 09:15: [id number] 00 Respiratory lung sounds Respirator Resolve 2018-06-17 Vonnie deficit y d 06-15 09:00:00 [place] 09:15: [id number] 00 Nutrition knowledge/s Nutrition Resolve 2018-06-17 Vonnie kill d 06-15 09:00:00 [place] deficit: pt 09:15: [id number] 00 Sensory impaired Sensory Resolve 2018-06-22 Catia [...] NT: 24Hr Unknown Silvana intake Diet 5- English deficit 15:30: [id number] 00 24 Hr Diet knowledge/s NT: 24Hr Resolve 2018-06-18 Silvana kill Diet d 5- 15:30:00 English deficit - 15:30: [id number] pt 00 Nutrition knowledge/s Nutrition Resolve 2018-06-19 Catia kill d 06-19 09:00:00 [place] deficit: pt 09:00: 00 Safety can be left Safety Resolve 2018-06-26 Catia alone for d 06-19 08:30:00 [place] only short 09:00: periods 00 Medication oral med Meds Resolve 2018-06-19 Catia assistance d 06-19 09:00:00 [place] required 09:00: 00 Cardio edema Cardiovasc Resolve 2018-06-26 Vonnie wilhelm d 06-22 08:30:00 [place] 09:15: [id number] 00 Cardio knowledge/s Cardiovasc Resolve 2018-07-24 Vonnieajith fletcher ular d 06-22 09:00:00 [place] deficit: pt 09:15: [id number] 00 Cardio pacemaker/I Cardiovasc Resolve 2018-06-26 Vonnierea CINTRON ular d 06-22 08:30:00 [place] 09:15: [id number] 00 Nutrition knowledge/s Nutrition Resolve 2018-06-24 Vonnie kill d 06-22 11:00:00 [place] deficit: pt 09:15: [id number] 00 Nutrition knowledge/s Nutrition Resolve 2018-06-24 Vonnie kill d 06-22 11:00:00 [place] deficit: cg 09:15: [id number] 00 Neuro impaired Neuro/Emot Resolve 2018-06-26 Vonnie decision-ma ion d 06-22 08:30:00 [place] addison 09:15: [id number] 00 Neuro knowledge/s Neuro/Emot Resolve 2018-06-22 Vonnie kill ion d 06-22 09:15:00 [place] deficit: pt 09:15: [id number] 00 Neuro knowledge/s Neuro/Emot Resolve 2018-06-24 Vonnie kill ion d 06-23 11:00:00 [place] deficit: pt 09:30: [id number] 00 Social financial FEDE: Active [facility] resource Social 06-23 [place] deficit Services 09:45: [id number] 00 Social knowledge/s FEDE: Resolve 2018-06-23 [facility] kill Social d 06-23 09:45:[facility] 09[facility]: [id number] pt 00 Respiratory oxygen Respirator Resolve 2018-06-26 [...] Vonnie wilhelm d 5-13 16:00:00 [place] 09:30: [id number] 00 Respiratory oxygen Respirator Resolve 2018-07-08 Vonnierea sánchez y d 5-13 16:00:00 [place] in home 09:30: [id number] 00 Nutrition knowledge/s Nutrition Resolve 2018-07-01 Vonnie fletcher d 5-13 10:00:00 [place] deficit: pt 09:30: [id number] 00 Cardio chest pain Cardiovasc Resolve 2018-07-08 Catia wilhelm d 5-15 16:00:00 [place] 10:00: 00 Cardio pacemaker/I Cardiovasc Resolve 2018-07-08 Catia wilhelm d -15 16:00:00 [place] 10:00: 00 Social knowledge/s FEDE: Resolve 2018-07-08 Catia Joy kill Social d 5-15 11:00:00 [place] deficit - Services 10:00: pt 00 Nutrition knowledge/s Nutrition Resolve 2018-07-08 Vonnie fletcher d -20 16:00:00 [place] deficit: pt 09:15: [id number] 00 Safety structural Safety Resolve 2018-07-23 Roslyn barriers d 07-08 11:15:00 [place] present 11:00: [id number] 00 Safety sanitation Safety Resolve 2018-07-23 Roslyn hazards d 07-08 11:15:00 [place] present 11:00: [id number] 00 Safety can be left Safety Resolve 2018-07-23 Roslyn alone for d 07-08 11:15:00 [place] only short 11:00: [id number] periods 00 Neuro impaired Neuro/Emot Active Catia antunez 07-08 Sherman jaime 16:00: 00 Medication oral med Meds Resolve 2018-07-10 Catia assistance d 07-08 09:08:00 [place] required 16:00: 00 Medication injectable Meds Unknown Catia med 07-08 [place] assistance 16:00: required 00 Cardio edema Cardiovasc Resolve 2018-07-23 Vonnie ular d 07-10 11:15:00 [place] 09:08: [id number] 00 Cardio pacemaker/I Cardiovasc Resolve 2018-07-23 Vonnie CD ular d 07-10 11:15:00 [place] 09:08: [id number] 00 Respiratory oxygen Respirator Resolve 2018-08-14 Vonnie treatments y d 07-10 09:00:00 [place] in home 09:08: [id number] 00 Respiratory lung sounds Respirator Resolve 2018-07-24 Vonnie deficit y d 07-10 09:00:00 [place] 09:08: [id number] 00 Nutrition knowledge/s Nutrition Resolve 2018-07-23 Vonnie kill d 07-10 11:15:00 [place] deficit: pt 09:08: [id number] 00 Neuro knowledge/s Neuro/Emot Resolve 2018-07-23 Vonnie kill ion d 07-10 11:15:00 [place] deficit: pt 09:08: [id number] 00 Social knowledge/s FEDE: Resolve 2018-09-29 [facility] Services kill Social d 07-10 10:00:00 [place] deficit - Services 09:08: [id number] pt 00 Neuro memory Neuro/Emot Resolve 2018-07-23 Vonnie deficit ion d 07-14 11:15:00 [place] needing 09:18: [id number] supervision 00 Pain frequent Pain Mgmt Active Vonnie pain 07-17 [place] 09:40: [id number] 00 Nutrition knowledge/s Nutrition Resolve 2018-07-23 Vonnie kill d 07-17 11:15:00 [place] deficit: cg 09:40: [id number] 00 Medication injectable Meds Unknown Vonnie med 07-17 [place] assistance 09:40: [id number] required 00 Respiratory bloody Respirator Resolve 2018-2018-07-27 Vonnie sputum y d 6 09:00:00 [place] 09:07: [id number] 00 Respiratory dyspnea Respirator Resolve 2018-07-27 Catia [...] d 6-10 09:00:00 [place] deficit: pt 09:00: [id number] 00 Nutrition nutritional Nutrition Resolve 2018-2018-07-31 Vonnie restriction d 6-10 09:00:00 [place] s 09:00: [id number] 00 Cardio pacemaker/I Cardiovasc Resolve 2018-2018-07-31 Catia CINTRON ular d 6-14 09:00:00 [place] 09:00: 00 Respiratory CPAP Respirator Resolve 2018-07-31 Catia treatments y d 6-14 09:00:00 [place] in home 09:00: 00 Medication oral med Meds Resolve 2018-08-03 Catia assistance d 6-14 09:00:00 [place] required 09:00: 00 Nutrition knowledge/s Nutrition Unknown Roslyn kill 6-14 [place] deficit: pt 10:00: [id number] 00 Nutrition knowledge/s Nutrition Resolve 2018-08-07 Roslyn kill d 6-14 10:00:00 [place] deficit: cg 10:00: [id number] 00 Nutrition nutritional Nutrition Unknown Roslyn restriction 6-14 [place] s 10:00: [id number] 00 Safety can be left Safety Resolve 2018-08-07 Roslyn alone for d 6-14 10:00:00 [place] only short 10:00: [id number] periods 00 Nutrition knowledge/s Nutrition Unknown Catia kill 6-14 [place] deficit: pt 10:30: 00 Nutrition nutritional Nutrition Unknown Catia restriction 6-14 Vallely s 10:30: 00 Respiratory CPAP Respirator Resolve 2018-08-07 Vonnie treatments y d 6-17 10:00:00 [place] in home 09:00: [id number] 00 Nutrition knowledge/s Nutrition Resolve 2018-08-07 Vonnie kill d 6-17 10:00:00 [place] deficit: pt 09:00: [id number] 00 Nutrition nutritional Nutrition Resolve 2018-08-07 Vonnie restriction d 6-17 10:00:00 [place] s 09:00: [id number] 00 Cardio pacemaker/I Cardiovasc Resolve 2018-08-10 Catia [...] factor d 08-14 09:00:00 Thomas present 09:00: [id number] 00 Safety fire risk Safety Resolve 2018-08-28 Jennifer Baum present d 08-14 09:00:00 Thomas 09:00: [id number] 00 Safety risk for Safety Resolve 2018-08-28 Jennifer Baum hospitaliza d 08-14 09:00:00 Thomas tion 09:00: [id number] 00 Medication oral med Meds Resolve 2018-08-14 [...] 00 [facility] for [facility] 09:[facility]: [id number] 00 Cardio pacemaker/I Cardiovasc Resolve 2018-09-11 Catia [...] Vonnie wilhelm d 09-18 10:20:00 [place] 10:00: [id number] 00 Safety risk for Safety Resolve 2018-09-18 Vonnie hospitaliza d 09-18 10:00:00 [place] tion 10:00: [id number] 00 Cardio chest pain Cardiovasc Resolve 2018-09-25 Vonnierea wilhelm d 09-25 10:10:00 [place] 10:10: [id number] 00 Cardio knowledge/s Cardiovasc Resolve 2018-09-25 Vonnie chance wilhelm d 09-25 10:10:00 [place] deficit: cg 10:10: [id number] 00 Neuro memory Neuro/Emot Resolve 2018-10-23 Vonnie deficit ion d 09-25 09:00:00 [place] needing 10:10: [id number] supervision 00 Safety risk for Safety Resolve 2018-09-25 Vonnie hospitaliza d 09-25 10:10:00 [place] tion 10:10: [id number] 00 Neuro depressive Neuro/Emot Resolve 2018-10-23 Catia feelings ion d 10-02 09:00:00 [place] present 09:00: 00 Safety risk for Safety Resolve 2018 Catia hospitaliza d 10-02 09:00:00 [place] tion 09:00: 00 Safety risk for Safety Resolve 2018-10-09 Vonnie hospitaliza d 10-06 10:20:00 [place] tion 11:40: [id number] 00 Elimination nausea/vomi Eliminatio Resolve 2018-10-16 Catia [...] FEDE: Active [facility] kill Social 10-28 [facility] deficit - Services 16:15: [id number] pt 00 Cardio pacemaker/I Cardiovasc Resolve 2018-10-30 [...] 09:00: 00 Elimination recurring Eliminatio Resolve 2018-11-27 Ctaia UTI n d 11-13 09:00:00 [place] 09:00: [...] 2018-02 [facility] hospitaliza 02-21 [place] tion 10:15: [id number] 00 Safety sanitation Safety Resolve 2018-022018-12-30 Janet hazards d 1-05 10:00:00 Chaudhari present 15:10: [id number] 00 Safety fall risk Safety Resolve 2018-022018-12-24 Janet factor d 105 09:00:00 Chaudhari present 15:10: [id number] 00 Respiratory oxygen Respirator Resolve 2018-022018-12-30 Catia [...] restriction d 03-13 08:00:00 [place] s 15:30: [id number] 00 Respiratory oxygen Respirator Resolve 2018-022019-01-15 Catia [...] 2018-02 Roslyn restriction 2-20 [place] s 10:15: [id number] 00 Cardio pacemaker/I Cardiovasc Resolve 2018-022019-02-19 Catia [...] [place] 09:00: 00 Cardio pacemaker/I Cardiovasc Resolve 2019-02-26 Catia CD ular d 02-26 08:30:00 [place] 08:30: 00 Respiratory oxygen Respirator Resolve 2019-03-05 Catia treatments y d 03-05 09:00:00 [place] in home 09:00: 00 Respiratory CPAP Respirator Resolve 2019-03-05 Catia treatments y d 03-05 09:00:00 [place] in home 09:00: 00 Sensory impaired Sensory Resolve 2019-03-12 Catia verbal d 03-05 09:00:00 [place]le[place] communicati 09:00: on 00 Nutrition nutritional Nutrition Resolve 2019-03-05 Catia restriction d 03-05 09:00:00 [place] s 09:00: 00 Respiratory oxygen Respirator Resolve 2019-03-12 Catia treatments y d 03-12 09:00:00 [place] in home 09:00: 00 Respiratory CPAP Respirator Resolve 2019-03-12 Catia treatments y d 03-12 09:00:00 [place] in home 09:00: 00 Sensory impaired Sensory Active Catia verbal 1-31 Valle[place] communicati 09:00: on 00 Safety sanitation Safety Active Catia hazards 2-07 Valle[place] present 09:00: 00 Allergies, Adverse Reactions, Alerts Allergy Allergy Status Severity Reaction(s) Onset Inactive Treating Comments Name Type Date Date Clinician shellfish Unknown Active Unknown Reaction 2017-05 Massiel Unknown -11 (Maria G) Shaun [id number] IVP DYE Unknown Active Unknown Reaction 2017-05 Massiel Unknown -11 (Maria G) Shaun [id number] Medications Ordered Filled Start Stop Current Ordering [...] n 80 mg n 80 mg 02-19 MD,Erasmo tablet tablet metoprolol metoprolol No Midura Unknown Unknown succinate succinate 02-19 MD,Erasmo ER 25 mg ER 25 mg tablet,exte [...] No Midura Unknown Unknown HCl HCl - MD,Erasmo (vitamin (vitamin B1) 100 mg B1) [...] No Midura Unknown Unknown Maximum Maximum - MD,Ersamo Strength Strength 400 mg-400 400 mg-400 mg-40 [...] Unknown Unknown 0.4 mg 0.4 mg 02-19 ,Erasmo sublingual sublingual tablet tablet Tylenol Tylenol No Midura Unknown Unknown Extra Extra - MD,Erasmo Strength Strength 500 mg 500 mg [...] No Maghaydah Unknown Unknown tablet tablet 05-08 ,Qutaybe h ferrous ferrous 2018- No Midura Unknown [...] Oxygen 2018- No Midura Unknown Unknown 05-15 ,Erasmo zinc zinc 2018- No Midura Unknown Unknown sulfate 220 sulfate 220 05-14 MD,Erasmo mg tablet mg tablet furosemide furosemide 2018- No Maghaydah Unknown Unknown 40 mg 40 mg 05-14 ,Qutaybe tablet tablet h Lasix 40 mg Lasix 40 mg 2018- No Maghaydah Unknown Unknown tablet tablet 05-27 ,Meg h bumetanide bumetanide 2018- No Maghaydah Unknown Unknown 1 mg tablet 1 mg tablet 05-28 ,Jenisetaisiahe h bumetanide bumetanide 2018- No Maghaydah Unknown Unknown 1 mg tablet 1 mg tablet 06-01 ,Meg man bumetanide bumetanide 2018- No Maghaydah Unknown Unknown 1 mg tablet 1 mg tablet 05-29 ,Qutaybgeremias h torsemide torsemide 2018- No Midura Unknown [...] Unknown Unknown 20 mg 20 mg 06-13 ,Qutaybe tablet tablet h torsemide torsemide 2018- No Maghaydah Unknown Unknown 20 mg 20 mg 06-12- MD,Qutaybe tablet tablet h torsemide torsemide 2018- No Maghaydah Unknown Unknown 20 mg 20 mg 06-14- MD,Qutaybe tablet tablet h ferrous ferrous 2018- No Midura Unknown Unknown sulfate 325 sulfate 325 06-17 ,Erasmo mg (65 mg mg (65 mg iron) iron) tablet,belkys tablet,belkys yed release yed release Colace 100 Colace 100 2018- No Midura Unknown Unknown mg capsule mg capsule 06-18- MD,Erasmo Colace 100 Colace 100 No Midura Unknown [...] Unknown Unknown mcg/actuati mcg/actuati 06-25 MD,Qutaybe on Carrizozo on Carrizozo h Cipro 500 Cipro 500 2018- No Midura Unknown Unknown mg tablet mg tablet 07-03- Erasmo ANDERSON torsemide torsemide 2018- No Maghaydah Unknown Unknown 20 mg 20 mg 07-21 08- MD,Qutaybe tablet tablet h metOLazone metOLazone 2018- No Maghaydah Unknown Unknown 2.5 mg 2.5 mg 07-21 06-15 MD,Qutaybe tablet tablet h mometasone mometasone No Midura Unknown Unknown 0.1 % 0.1 % 6 MD,Erasmo topical topical cream cream torsemide torsemide No Maghaydah Unknown Unknown 10 mg 10 mg 8- MD,Qutaybe tablet tablet h clonazePAM clonazePAM 2018- No Midura Unknown Unknown 0.5 mg 0.5 mg 10-27-24 MD,Erasmo tablet tablet Oxygen Oxygen No Midura [...] Unknown 2 mg tablet 2 mg tablet - ,Erasmo metOLazone metOLazone 2018-02- No Maghaydah Unknown Unknown 2.5 mg 2.5 mg 02-23 MD,Qutaybe tablet tablet h metOLazone metOLazone 2018-02- No Maghaydah Unknown Unknown 2.5 mg 2.5 mg 03-01 MD,Qutaybe tablet tablet h azithromyci azithromyci 2018-02- No Midura Unknown Unknown n 250 mg n 250 mg 02-28-12 MD,Erasmo tablet tablet azithromyci azithromyci 2018-02- No Midura Unknown Unknown n 250 mg n 250 mg 02-23 11-14 MD,Erasmo tablet tablet metOLazone metOLazone 2018-02- Yes Maghaydah Unknown Unknown 2.5 mg 2.5 mg 03-08 12- MD,Qutaybe tablet tablet h metOLazone metOLazone 2018-02 Yes Maghaydah Unknown Unknown 2.5 mg 2.5 mg 16 MD,Qutaybe tablet tablet h traZODone traZODone 2018-02 Yes Midura Unknown Unknown 50 mg 50 mg 2-21 Erasmo ANDERSON tablet tablet glimepiride glimepiride Yes Midura Unknown Unknown 2 mg tablet 2 mg tablet 2-12 Erasmo ANDERSON Vital Signs Vital Name Observation Time Observation Value Comments SYSTOLIC mm[Hg] 2019-04-02 18:10:23 140 mm[Hg] mm[Hg] Method: Sit SYSTOLIC mm[Hg] 2019-02-12 18:09:34 140 mm[Hg] mm[Hg] Method: Stand DIASTOLIC mm[Hg] 2019-04-02 18:10:23 80 mm[Hg] mm[Hg] Method: Sit DIASTOLIC mm[Hg] 2019-02-12 18:09:34 80 mm[Hg] mm[Hg] Method: Stand PULSE 2019-04-02 18:10:23 88 /min /min RESP RATE 2019-04-02 18:10:23 16 /min /min TEMP 2019-04-02 18:10:23 97.3 [degF] Procedures This patient has no known procedures. Results This patient has no known results.
--- OUTSIDE RECORDS SUMMARY | 2019-05-13 12:16 | XMS REPORT ---
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 PT/OT: Resolve 2018-12-29 Catia yousif rdination [...] 02-25 17:15:00 [place] sigala device ransfer 14:50: [id number] present 00 Bed transfer PT/OT: Bed Resolve 2018-12-29 Deejay Mobility/Tr deficit: Mobility/T d 02-25 17:15:00 [place] sigala toilet/comm ransfer 14:50: [id number] ode 00 Bed transfer PT/OT: Bed Resolve 2018-12-29 Deejay Mobility/Tr deficit: Mobility/T d 02-25 17:15:00 [place] sigala shower/tub ransfer 14:50: [id number] 00 Bed knowledge/s PT/OT: Bed Resolve 2018-12-29 Deejay Mobility/Tr kill Mobility/T d 02-25 17:15:00 [place] sigala deficit: pt ransfer 14:50: [id number] 00 Balance/End knowledge/s PT/OT: Resolve 2018-12-29 Deejay yousif kill Balance/En d 02-25 17:15:00 [place] deficit: pt durance 14:50: [id number] 00 Environment knowledge/s PT/OT: Resolve 2018-12-29 Deejay hennessy kill Environmen d 02-25 17:15:00 [place] deficit: pt t 14:50: [id number] 00 Environment environment PT/OT: Resolve 2018-12-29 Deejay hennessy al barriers Environmen d 02-25 17:15:00 [place] t 14:50: [id number] 00 Gait/Locomo gait PT/OT: Resolve 2018-12-29 Deejay tisimran assistive Gait/Locom d 02-25 17:15:00 Garibay problems device otion 14:50: [id number] present 00 Gait/Locomo knowledge/s PT/OT: Resolve 2018-12-29 Deejay ocampo kill Gait/Locom d 02-25 17:15:00 Garibay problems deficit: pt otion 14:50: [id number] 00 Cardio edema Cardiovasc Resolve 2018-05-27 Catia [...] d 2- 10:00:00 [place] deficit: pt 09:50: [id number] 00 Cardio knowledge/s Cardiovasc Resolve 2018-05-27 Vonnie kill ular d 2 10:00:00 [place] deficit: cg 09:50: [id number] 00 Respiratory lung sounds Respirator Resolve 2018-04-17 Vonnie deficit y d 2 09:00:00 [place] 09:50: [id number] 00 Medication oral med Meds Resolve 2018-04-24 [...] d 4- 09:00:00 [place] deficit: pt 10:00: [id number] 00 Social knowledge/s FEDE: Resolve 2018-2018-05-21 [facility] kill Social d 4- 10:00:00 [place] deficit - Services 10:00: [id number] pt 00 Social knowledge/s FEDE: Resolve 2018-2018-05-21 [facility] kill Social d 4- 10:00:00 [place] deficit - Services 10:00: [id number] cg 00 24 Hr Diet nutrition NT: 24Hr Active Silvana intake Diet 05-22 Cameron deficit 09:50: [id number] 00 24 Hr Diet knowledge/s NT: 24Hr Resolve 2018-05-22 Silvana kill Diet d 05-22 09:50:00 Cameron deficit - 09:50: [id number] pt 00 Nutritional food NT: Resolve 2018-05-22 Silvana Barrier storage/pre Barriers d 05-22 09:50:00 Cameron p deficit 09:50: [id number] 00 Respiratory lung sounds Respirator Resolve 2018-05-27 Vonnie deficit y d 05-25 10:00:00 [place] 09:10: [id number] 00 Respiratory nebulizer Respirator Resolve 2018-05-27 Vonnie treatment y d 05-25 10:00:00 [place] in home 09:10: [id number] 00 Neuro impaired Neuro/Emot Resolve 2018-06-19 Catia toscano-ma ion d 05-27 09:00:00 Sherman addison 10:00: 00 Test/Treatm tests Test/Injec Resolve 2018-06-09 Vonnie ent ordered t/Chele d 05-28 09:05:00 [place] [id number] Cardio knowledge/s Cardiovasc Resolve 2018-06-06 Catia blackar [...] present y d 4-15 09:00:00 [place] 09:00: [id number] 00 Respiratory oxygen Respirator Resolve 2018-06-10 Vonnie treatments y d 4-15 09:00:00 [place] in home 09:00: [id number] 00 Respiratory lung sounds Respirator Resolve 2018-06-06 Vonnie deficit y d 4-15 12:00:00 [place] 09:00: [id number] 00 Endo/Viktor diabetic Endo/Viktor Resolve 2018-06-06 Catia [...] d 06-08 09:00:00 [place] deficit: pt 10:35: [id number] 00 24 Hr Diet nutrition NT: 24Hr Unknown Silvaan intake Diet 06-08 Cameron deficit 10:40: [id number] 00 24 Hr Diet knowledge/s NT: 24Hr Resolve 2018-06-08 Silvana kill Diet d 06-08 10:40:00 Cameron deficit - 10:40: [id number] pt 00 Respiratory lung sounds Respirator Resolve 2018-06-10 Vonnie deficit y d 06-09 09:00:00 [place] 09:05: [id number] 00 Musculoskel requires Musculoske Resolve 2018-06-10 Vonnie etal human letal d 06-09 09:00:00 [place] assist to 09:05: [id number] leave home 00 Cardio edema Cardiovasc Resolve [...] d 06-11 10:20:00 [place] deficit: cg 10:00: [id number] 00 Nutrition changing Nutrition Resolve 2018-06-26 Catia weight/appe d 06-12 08:30:00 [place] tite 10:20: 00 Nutrition knowledge/s Nutrition Resolve 2018-06-12 Catia kill d 06-12 10:20:00 [place] deficit: pt 10:20: 00 Cardio edema Cardiovasc Resolve 2018-06-17 Vonnierea wilhelm d 06-15 09:00:00 [place] 09:15: [id number] 00 Cardio pacemaker/I Cardiovasc Resolve 2018-06-17 Vonnierea CINTRON ular d 06-15 09:00:00 [place] 09:15: [id number] 00 Respiratory dyspnea Respirator Resolve 2018-06-17 Vonnie present y d 06-15 09:00:00 [place] 09:15: [id number] 00 Respiratory oxygen Respirator Resolve 2018-06-19 Vonnie treatments y d 06-15 09:00:00 [place] in home 09:15: [id number] 00 Respiratory lung sounds Respirator Resolve 2018-06-17 Vonnie deficit y d 06-15 09:00:00 [place] 09:15: [id number] 00 Nutrition knowledge/s Nutrition Resolve 2018-06-17 Vonnie kill d 06-15 09:00:00 [place] deficit: pt 09:15: [id number] 00 Sensory impaired Sensory Resolve 2018-06-22 Catia [...] NT: 24Hr Unknown Silvana intake Diet 5- Cameron deficit 15:30: [id number] 00 24 Hr Diet knowledge/s NT: 24Hr Resolve 2018-06-18 Silvana kill Diet d 5- 15:30:00 Cameron deficit - 15:30: [id number] pt 00 Nutrition knowledge/s Nutrition Resolve 2018-06-19 Catia kill d 06-19 09:00:00 [place] deficit: pt 09:00: 00 Safety can be left Safety Resolve 2018-06-26 Catia alone for d 06-19 08:30:00 [place] only short 09:00: periods 00 Medication oral med Meds Resolve 2018-06-19 Catia assistance d 06-19 09:00:00 [place] required 09:00: 00 Cardio edema Cardiovasc Resolve 2018-06-26 Vonnie wilhelm d 06-22 08:30:00 [place] 09:15: [id number] 00 Cardio knowledge/s Cardiovasc Resolve 2018-07-24 Vonnieajith fletcher ular d 06-22 09:00:00 [place] deficit: pt 09:15: [id number] 00 Cardio pacemaker/I Cardiovasc Resolve 2018-06-26 Vonnierea CINTRON ular d 06-22 08:30:00 [place] 09:15: [id number] 00 Nutrition knowledge/s Nutrition Resolve 2018-06-24 Vonnie kill d 06-22 11:00:00 [place] deficit: pt 09:15: [id number] 00 Nutrition knowledge/s Nutrition Resolve 2018-06-24 Vonnie kill d 06-22 11:00:00 [place] deficit: cg 09:15: [id number] 00 Neuro impaired Neuro/Emot Resolve 2018-06-26 Vonnie decision-ma ion d 06-22 08:30:00 [place] addison 09:15: [id number] 00 Neuro knowledge/s Neuro/Emot Resolve 2018-06-22 Vonnie kill ion d 06-22 09:15:00 [place] deficit: pt 09:15: [id number] 00 Neuro knowledge/s Neuro/Emot Resolve 2018-06-24 Vonnie kill ion d 06-23 11:00:00 [place] deficit: pt 09:30: [id number] 00 Social financial FEDE: Active [facility] resource Social 06-23 [place] deficit Services 09:45: [id number] 00 Social knowledge/s FEDE: Resolve 2018-06-23 [facility] kill Social d 06-23 09:45:00 [email or web address][email or web address] deficit - Services 09:45: [id number] pt 00 Respiratory oxygen Respirator Resolve 2018-06-26 [...] Vonnie wilhelm d 5-13 16:00:00 [place] 09:30: [id number] 00 Respiratory oxygen Respirator Resolve 2018-07-08 Vonnierea sánchez y d 5-13 16:00:00 [place] in home 09:30: [id number] 00 Nutrition knowledge/s Nutrition Resolve 2018-07-01 Vonnie fletcher d 5-13 10:00:00 [place] deficit: pt 09:30: [id number] 00 Cardio chest pain Cardiovasc Resolve 2018-07-08 Catia wilhelm d 5-15 16:00:00 [place] 10:00: 00 Cardio pacemaker/I Cardiovasc Resolve 2018-07-08 Catia wilhelm d -15 16:00:00 [place] 10:00: 00 Social knowledge/s FEDE: Resolve 2018-07-08 Catia Joy kill Social d 5-15 11:00:00 [place] deficit - Services 10:00: pt 00 Nutrition knowledge/s Nutrition Resolve 2018-07-08 Vonnie fletcher d -20 16:00:00 [place] deficit: pt 09:15: [id number] 00 Safety structural Safety Resolve 2018-07-23 Roslyn barriers d 07-08 11:15:00 [place] present 11:00: [id number] 00 Safety sanitation Safety Resolve 2018-07-23 Roslyn hazards d 07-08 11:15:00 [place] present 11:00: [id number] 00 Safety can be left Safety Resolve 2018-07-23 Roslyn alone for d 07-08 11:15:00 [place] only short 11:00: [id number] periods 00 Neuro impaired Neuro/Emot Active Catia antunez 07-08 Sherman jaime 16:00: 00 Medication oral med Meds Resolve 2018-07-10 Catia assistance d 07-08 09:08:00 [place] required 16:00: 00 Medication injectable Meds Unknown Catia med 07-08 [place] assistance 16:00: required 00 Cardio edema Cardiovasc Resolve 2018-07-23 Vonnie ular d 07-10 11:15:00 [place] 09:08: [id number] 00 Cardio pacemaker/I Cardiovasc Resolve 2018-07-23 Vonnie CD ular d 07-10 11:15:00 [place] 09:08: [id number] 00 Respiratory oxygen Respirator Resolve 2018-08-14 Vonnie treatments y d 07-10 09:00:00 [place] in home 09:08: [id number] 00 Respiratory lung sounds Respirator Resolve 2018-07-24 Vonnie deficit y d 07-10 09:00:00 [place] 09:08: [id number] 00 Nutrition knowledge/s Nutrition Resolve 2018-07-23 Vonnie kill d 07-10 11:15:00 [place] deficit: pt 09:08: [id number] 00 Neuro knowledge/s Neuro/Emot Resolve 2018-07-23 Vonnie kill ion d 07-10 11:15:00 [place] deficit: pt 09:08: [id number] 00 Social knowledge/s FEDE: Resolve 2018-09-29 [facility] Services kill Social d 07-10 10:00:00 [place] deficit - Services 09:08: [id number] pt 00 Neuro memory Neuro/Emot Resolve 2018-07-23 Vonnie deficit ion d 07-14 11:15:00 [place] needing 09:18: [id number] supervision 00 Pain frequent Pain Mgmt Active Vonnie pain 07-17 [place] 09:40: [id number] 00 Nutrition knowledge/s Nutrition Resolve 2018-07-23 Vonnie kill d 07-17 11:15:00 [place] deficit: cg 09:40: [id number] 00 Medication injectable Meds Unknown Vonnie med 07-17 [place] assistance 09:40: [id number] required 00 Respiratory bloody Respirator Resolve 2018-2018-07-27 Vonnie sputum y d 6 09:00:00 [place] 09:07: [id number] 00 Respiratory dyspnea Respirator Resolve 2018-07-27 Catia [...] d 6-10 09:00:00 [place] deficit: pt 09:00: [id number] 00 Nutrition nutritional Nutrition Resolve 2018-2018-07-31 Vonnie restriction d 6-10 09:00:00 [place] s 09:00: [id number] 00 Cardio pacemaker/I Cardiovasc Resolve 2018-2018-07-31 Catia CINTRON ular d 6-14 09:00:00 [place] 09:00: 00 Respiratory CPAP Respirator Resolve 2018-07-31 Catia treatments y d 6-14 09:00:00 [place] in home 09:00: 00 Medication oral med Meds Resolve 2018-08-03 Catia assistance d 6-14 09:00:00 [place] required 09:00: 00 Nutrition knowledge/s Nutrition Unknown Roslyn kill 6-14 [place] deficit: pt 10:00: [id number] 00 Nutrition knowledge/s Nutrition Resolve 2018-08-07 Roslyn kill d 6-14 10:00:00 [place] deficit: cg 10:00: [id number] 00 Nutrition nutritional Nutrition Unknown Roslyn restriction 6-14 [place] s 10:00: [id number] 00 Safety can be left Safety Resolve 2018-08-07 Roslyn alone for d 6-14 10:00:00 [place] only short 10:00: [id number] periods 00 Nutrition knowledge/s Nutrition Unknown Catia kill 6-14 [place] deficit: pt 10:30: 00 Nutrition nutritional Nutrition Unknown Catia restriction 6-14 [place] s 10:30: 00 Respiratory CPAP Respirator Resolve 2018-08-07 Vonnie treatments y d 6-17 10:00:00 [place] in home 09:00: [id number] 00 Nutrition knowledge/s Nutrition Resolve 2018-08-07 Vonnie kill d 6-17 10:00:00 [place] deficit: pt 09:00: [id number] 00 Nutrition nutritional Nutrition Resolve 2018-08-07 Vonnie restriction d 6-17 10:00:00 [place] s 09:00: [id number] 00 Cardio pacemaker/I Cardiovasc Resolve 2018-08-10 Catia [...] factor d 08-14 09:00:00 Thomas present 09:00: [id number] 00 Safety fire risk Safety Resolve 2018-08-28 Jennifer Baum present d 08-14 09:00:00 Thomas 09:00: [id number] 00 Safety risk for Safety Resolve 2018-08-28 Jennifer Baum hospitaliza d 08-14 09:00:00 Thomas tion 09:00: [id number] 00 Medication oral med Meds Resolve 2018-08-14 Catia assistance d 08-14 09:00:00 [place] required 09:00: 00 Cardio pacemaker/I Cardiovasc Resolve 2018-2018-08-28 Catia blackar d 08-21 09:00:00 [place] 09:00: 00 Medication oral med Meds Resolve 2018-2018-08-28 Catia assistance d 7 09:00:00 [place] required 09:00: 00 Elimination nausea/vomi Eliminatio Resolve 2018-09-04 Catia bass n d 08-28 09:45:00 [place] 09:00: 00 Safety [facility] for [email or web address]tein tion 09:45: [id number] 00 Cardio pacemaker/I Cardiovasc Resolve 2018-09-11 Catia [...] Vonnie wilhelm d 09-18 10:20:00 [place] 10:00: [id number] 00 Safety risk for Safety Resolve 2018-09-18 Vonnie hospitaliza d 09-18 10:00:00 [place] tion 10:00: [id number] 00 Cardio chest pain Cardiovasc Resolve 2018-09-25 Vonnierea wilhelm d 09-25 10:10:00 [place] 10:10: [id number] 00 Cardio knowledge/s Cardiovasc Resolve 2018-09-25 Vonnie chance wilhelm d 09-25 10:10:00 [place] deficit: cg 10:10: [id number] 00 Neuro memory Neuro/Emot Resolve 2018-10-23 Vonnie deficit ion d 09-25 09:00:00 [place] needing 10:10: [id number] supervision 00 Safety risk for Safety Resolve 2018-09-25 Vonnie hospitaliza d 09-25 10:10:00 [place] tion 10:10: [id number] 00 Neuro depressive Neuro/Emot Resolve 2018-10-23 Catia feelings ion d 10-02 09:00:00 [place] present 09:00: 00 Safety risk for Safety Resolve 2018 Catia hospitaliza d 10-02 09:00:00 [place] tion 09:00: 00 Safety risk for Safety Resolve 2018-10-09 Vonnie hospitaliza d 10-06 10:20:00 [place] tion 11:40: [id number] 00 Elimination nausea/vomi Eliminatio Resolve 2018-10-16 Catia [...] Active [facility] kill Social 10-28 [facility] deficit - Services 16:15: [id number] pt 00 Cardio pacemaker/I Cardiovasc Resolve 2018-10-30 [...] 2018-02 Roslyn hospitaliza 02-21 [place] tion 10:15: [id number] 00 Safety sanitation Safety Resolve 2018-022018-12-30 Janet hazards d 1-05 10:00:00 Chaudhari present 15:10: [id number] 00 Safety fall risk Safety Resolve 2018-022018-12-24 Janet factor d 105 09:00:00 Chaudhari present 15:10: [id number] 00 Respiratory oxygen Respirator Resolve 2018-022018-12-30 Catia [...] restriction d 03-13 08:00:00 [place] s 15:30: [id number] 00 Respiratory oxygen Respirator Resolve 2018-022019-01-15 Catia [...] 2018-02 Roslyn restriction 2-20 [place] s 10:15: [id number] 00 Cardio pacemaker/I Cardiovasc Resolve 2018-022019-02-19 Catia [...] [place] 08:30: 00 Respiratory oxygen Respirator Resolve 2019-2019-03-05 Catia treatments y d 1-17 09:00:00 [place] in home 09:00: 00 Respiratory CPAP Respirator Resolve 2019-03-05 Catia treatments y d 1-17 09:00:00 [place] in home 09:00: 00 Sensory impaired Sensory Resolve 2019-03-12 Catia verbal d 1- 09:00:00 [place] communicati 09:00: on 00 Nutrition nutritional Nutrition Resolve 2019-03-05 Catia restriction d 03-05 09:00:00 [place] s 09:00: 00 Respiratory oxygen Respirator Resolve 2019-03-12 Catia treatments y d 1-24 09:00:00 [place] in home 09:00: 00 Respiratory CPAP Respirator Resolve 2019-03-12 Catia treatments y d 03-12 09:00:00 [place] in home 09:00: 00 Sensory impaired Sensory Active Catia verbal 1-31 [place] communicati 09:00: on 00 Safety sanitation Safety Resolve 2019-04-02 Catia hazards d 2-07 09:00:00 [place] present 09:00: 00 Cardio pacemaker/I Cardiovasc Active Catia CD ular 2-14 [place] 09:00: 00 Allergies, Adverse Reactions, Alerts Allergy Allergy Status Severity Reaction(s) Onset Inactive Treating Comments Name Type Date Date Clinician shellfish Unknown Active Unknown Reaction 2017-05 Massiel Unknown -11 (Maria G) Shaun [id number] IVP DYE Unknown Active Unknown Reaction 2017-05 Massiel Unknown -11 (Maria G) Shaun [id number] Medications Ordered Filled Start Stop Current Ordering [...] Midura Unknown Unknown mg chewable mg chewable 1-03 MD,Erasmo tablet tablet furosemide furosemide 2018- No Midura Unknown Unknown 20 mg 20 mg 02-19- ,Erasmo tablet tablet atorvastati atorvastati No Midura Unknown Unknown n 80 mg n 80 mg 02-19 ,Erasmo tablet tablet metoprolol metoprolol No Midura Unknown Unknown succinate succinate 02-19 ,Erasmo ER 25 mg ER 25 mg tablet,exte tablet,exte nded nded release 24 release 24 hr hr lisinopril lisinopril 2018- No Midura Unknown Unknown 2.5 mg 2.5 mg 02-19- ,Erasmo tablet tablet dilTIAZem dilTIAZem No Midura Unknown Unknown 30 mg 30 mg 02-19 ,Erasmo tablet tablet Janumet 50 Janumet 50 No Midura Unknown Unknown mg-1,000 mg mg-1,000 mg 02-19 ,Erasmo tablet tablet Xarelto 20 Xarelto 20 2018- No Midura Unknown Unknown mg tablet mg tablet 02-19 ,Erasmo gabapentin gabapentin 2018- No Midura Unknown Unknown 300 mg 300 mg 02-19- ,Erasmo capsule capsule cetirizine cetirizine No Midura [...] Unknown Unknown 20 gram/30 20 gram/30 02-19 02- Erasmo ANDERSON mL oral mL oral solution [...] Unknown Unknown sulfate HFA sulfate HFA 02-19- Erasmo ANDERSON 90 90 mcg/actuati mcg/actuati on aerosol on aerosol inhaler inhaler Nitrostat Nitrostat No Midura Unknown Unknown 0.4 mg 0.4 mg 02-19 Erasmo ANDERSON sublingual sublingual tablet tablet Tylenol Tylenol No Midura Unknown Unknown Extra Extra 1- ,Erasmo Strength Strength 500 mg 500 mg tablet tablet Colace 100 Colace 100 2018- No Midura Unknown Unknown mg capsule mg capsule 02-19 05- Erasmo ANDERSON albuterol albuterol No Midura Unknown Unknown sulfate HFA sulfate HFA - ,Erasmo 90 90 mcg/actuati mcg/actuati on aerosol [...] Unknown Unknown 20 mg 20 mg 04-24 [place] tablet tablet furosemide furosemide 2018- No [...] Unknown Unknown 16 % 16 % - MD,Erasmo topical topical ointment ointment torsemide torsemide 2018- [...] Unknown Unknown mg capsule mg capsule 06-18 ,Erasmo torsemide torsemide 2018- No [place]hayd[place] Unknown Unknown 20 mg 20 mg 06-23 MD,Qutaybe tablet tablet h torsemide torsemide 2018- No [place] Unknown Unknown 20 mg 20 mg 06-26 MD,Qutaybe tablet tablet h torsemide torsemide 2018- No [place] Unknown Unknown 20 mg 20 mg 06-29- MD,Qutaybe tablet tablet h Nasonex 50 Nasonex 50 No [place] Unknown Unknown mcg/actuati mcg/actuati 06-25 ,[place] Cipro 500 Cipro 500 2018- No Midura Unknown Unknown mg tablet mg tablet 07-03 Erasmo ANDERSON torsemide torsemide 2018- No [place] Unknown Unknown 20 mg 20 mg 07-21 08- ,Qutaybe tablet tablet h metOLazone metOLazone 2018- No [place] Unknown Unknown 2.5 mg 2.5 mg 07-21 06-15 ,Qutaybe tablet tablet h mometasone mometasone No Midura Unknown Unknown 0.1 % 0.1 % 08-04 ,Erasmo topical topical cream cream torsemide torsemide No [place] Unknown Unknown 10 mg 10 mg 10-07 MD,Qutaybe tablet tablet h clonazePAM clonazePAM 2018- Midura Unknown Unknown 0.5 mg 0.5 mg 10-27- ,Erasmo tablet tablet Oxygen Oxygen No Midura Unknown Unknown 10-30 ,Erasmo ferrous ferrous No Midura Unknown Unknown sulfate 325 sulfate 325 10-30 MD,Erasmo mg (65 mg mg (65 mg iron) iron) tablet,belkys tablet,belkys yed release yed release Xarelto 20 Xarelto 20 No [place] Unknown Unknown mg tablet mg tablet 11-13 MD,Kishor predniSONE predniSONE 2018- [place] Unknown Unknown 20 mg 20 [...] [place] Unknown Unknown 2.5 mg 2.5 mg 03-01- MD,Qutaybe tablet tablet h azithromyci azithromyci 2018-02- [...] [place] Unknown Unknown 2.5 mg 2.5 mg 2-16 ,Qutaybe tablet tablet h traZODone traZODone 2018-02 Yes [...]
--- OUTSIDE RECORDS SUMMARY | 2019-05-13 12:16 | XMS REPORT | Continuity of Care Document ---
:1960 External Reference #:[id number] Author Name Maog Sewell NP Address [address] [place] [address] Care Team Providers Name Role Phone Arnulfo Kelley MD - Cardiovascular Care Team Information Shellacker [phone] Disease Dao Espana - Ophthalmology Care Team Information Shellacker Bhargavi Sheikh N.P. Care Team Information Shellacker [phone] [employer] - O[facility] Equipment [facility] Supplies Care Team Information Shellacker [phone] [facility] - Physical Care Team Information Shellacker [phone] Therapist Problems Active Problems Provider Date Type 2 diabetes mellitus Erasmo Hill M.D. Onset: 02/20/2007 Hyperlipidemia Erasmo Hill M.D. Onset: 02/20/2007 Essential hypertension Erasmo Hill M.D. Onset: 02/20/2007 Atrial fibrillation Erasmo Hill M.D. Onset: 05/13/2007 Primary cardiomyopathy Erasmo Hill M.D. Onset: 05/13/2007 Nervous system disorder due to diabetes Erasmo Hill M.D. Onset: 2010 mellitus Kidney stone Santiago Liu M.D. Onset: 05/10/2014 Chronic obstructive lung disease Santiago Liu M.D. Onset: 05/10/2014 Cardiac pacemaker in situ Erasmo Hill M.D. 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 Onset: 08/11 Other ascites Erasmo Hill M.D. Onset: 03/06/2018 Persistent atrial fibrillation Santiago Liu M.D. Onset: 05/19/2018 Cirrhosis - non-alcoholic Santiago Liu M.D. Onset: 05/19/2018 Type II diabetes mellitus uncontrolled Santiago Liu M.D. Onset: 2018 Edema Santiago Liu M.D. Onset: 05/19/2018 Obstructive sleep apnea syndrome Santiago Liu M.D. Onset: 05/19/2018 Eruption Erasmo Hill M.D. Onset: 08/04/2018 Acute upper respiratory infection, Erasmo Hill M.D. Onset: 08/04/2018 unspecified Social History Type Date Description Comments Sex Unknown Tobacco Use Start: Unknown End: Former Cigarette Smoker quit 2017 in the Unknown spring. Smoking Status Reviewed: 03/16/19 Former Cigarette Smoker quit 2017 in the spring. ETOH Use Has consumed alcohol in quit alcohol in June the past 2016. Used to drink heavy. Tobacco Use Start: Unknown End: Patient is a former smoker Unknown Allergies, Adverse Reactions, Alerts Active Allergies Reaction Severity Comments Date Amoxicillin Hives 06/30/2002 Contrast 05/10/2005 Medications Active Medications SIG Qnty Indications Ordering Date Provider Cipro take one by mouth 20tabs N39.0 Mago Capri 04/03/2019 500mg Tablets twice daily for Sewell, BEAN SNIPPER 10 days Nystatin apply to rash 2 30units R21 Erasmo Hill, 02/05/2019 to 3 times a day M.D. [id number] Cream to affected area as directed Trazodone HCL 1-2 tablet at 60tabs Erasmo Hill, 01/29/2019 50mg bedtime as needed M.D. Tablets for sleep Ferrous Sulfate Take One Tablet 30tabs Erasmo Hill, 01/15/2019 By Mouth Every M.D. 325(65Fe) mg Day For Anemia Tablets DR Mckeonmepiride take 2 tablet by 90tabs Erasmo Hill, 11/27/2018 2mg mouth every M.D. Tablets morning for diabetes Clonazepam Take One Tablet 30tabs Erasmo Hill, 10/23/2018 0.5mg By Mouth AT M.D. Tablets Bedtime as Needed Leg Cramps Maximum Daily Dose = 1 SM Aspirin Adult Take One Tablet 90tabs Erasmo Hill, 09/11/2018 Low Strength By Mouth Every M.D. 81mg Day Tablets DR Thompsonetasone Furoate apply to affected 45units R21 Erasmo Hill, 2018 areas twice daily M.D. 0.1% Cream Lactulose Take 30 ML By 3311units Erasmo Hill, 08/04/2018 10GM/15ML Mouth Two Times A M.D. Solution Day Ventolin HFA Inhale Two Puffs 18units Erasmo Hill, 04/28/2018 By Mouth Every 4 M.D. 108(90Base) mcg/Act Hours as Needed Aerosol Docusate Sodium Take One Capsule 60caps Erasmo Hill, 11/28/2017 By Mouth Twice A M.D. 100mg Capsules Day Metoprolol 1 by mouth every Unknown 07/10/2016 Succinate ER day 25mg Tablets ER 24HR Cetirizine HCL take one tablet 90tabs S10.86xA Erasmo Hill, 02/01/2016 10mg by mouth every M.D. Tablets day for allergies S70.369A Janumet take one tablet by 180tabs E11.65 Tiny Knight, 11/09/2014 50-1000mg Tablets mouth twice a day [employer] One Touch Ultra use with glucometer 1Box Tiny Knight, 06/25/2013 Lancets twice a day [employer] One Touch Ultra Test use with glucometer 1Box Tiny Knight, 06/25/2013 Strips twice a day [employer] Omeprazole take one capsule by 90caps K21.9 Mago Capri 02/19/2013 20mg Capsules mouth every day DANIEL Sewell DR Diltiazem HCL 1 po bid Santiago F. 30mg Shallish, M.D. Tablets Atorvastatin Calcium 1 by mouth every 90tabs E78.4 Erasmo Hill, 80mg day M.D. Tablets Magnesium Oxide Take One Tablet By 90tabs Erasmo Hill, 400mg Mouth Three Times A M.D. Tablets Day Nitroglycerin 1 sl as needed 25tabs Erasmo Hill, 0.4mg pain, may repeat q5 M.D. Tablets Sub min, if no relief after 3, call 911 Symbicort Inhale Two Puffs By 10.2units Erasmo Hill, 80-4.5mcg/Act Mouth Twice A Day M.DLina Aerosol Maalox Multi Symptom 30ml by mouth every Santiago F. Maximum Strength 6 hours as needed Etelvina Liu 950-265-86rm/5ML Suspension Thiamine HCL 1 by mouth every Santiago F. 100mg day Etelvina Liu Tablets Tylenol Extra Strength 2 tabs by mouth Santiago F. q12hrs as needed Etelvina Liu 500mg Tablets Torsemide 2 by mouth every Unknown 20mg Tablets day Metolazone 1 by mouth Fri Unknown 2.5mg Tablets Fri History Medications Azithromycin 2 take by mouth 6tabs Rose 12/25/2018 - 250mg tablets today,then KATERINA Yang 01/29/2019 Tablets one tab days 2-5 until finished Physical Therapy evaluate and tx-leg Erasmo Hill, 11/27/2018 - strengthing Etelvina 02/05/2019 Cipro take one by mouth 28tabs N39.0 Sivlana Gorman 11/11/2018 - 500mg Tablets twice daily for 14 Rafita, DANIEL 12/25/2018 days Medications Administered in Office Medication SIG Qnty Indications Ordering Provider Date B-12 Injection KATERINA Vasquez 04/05/2016 Injection Injection Subcutaneous Or KATERINA Vasquez 04/05/2016 Intramuscular Injection Immunizations CPT Code Status Date Vaccine Lot # [id number] Given 11/23/2014 Pneumococcal Immunization [id number] Given 11/09/2014 Influenza Vac, Quadrivalent, Slit Virus, Im [id number] Q2038 Given 12/06/2013 Split Influenza Medicare: Fluzone [id number] 63061 Given 08/07/2013 Tdap Tetanus, W Pertussis [id number] Q2038 Given 11/23/2012 Split Influenza Medicare: Fluzone [id number] Q2038 Given 12/05/2011 Split Influenza Medicare: Fluzone [id number] Q2038 Given 11/08/2010 Split Influenza Medicare: Fluzone 26116 Given 11/08/2010 DO Not Use Split Influenza Virus Vaccine [id number] 45266 Given 05/05/2009 H1N1 Virus Vaccine [id number] 25435 Given 12/11/2007 DO Not Use Split Influenza Virus Vaccine [id number] 87634 Given 12/11/2007 Pneumococcal Immunization [id number] 76472 Given 11/29/2006 DO Not Use Split Influenza Virus Vaccine [id number] 40115 Given 12/19/2005 DO Not Use Split Influenza Virus Vaccine 58755 Given 08/15/2005 Tetanus And Diptheria Adult Preservative Free [id number] >7Yrs 27964 Given 12/19/2004 DO Not Use Split Influenza Virus Vaccine 39067 Given 01/16/2004 DO Not Use Split Influenza Virus Vaccine 35316 Given 04/06/2003 Td Immunization, For Use In Individuals 7 Years Or Older 03173 Given 04/06/2003 DT Immunization 63914 Given 11/18/2002 DO Not Use Split Influenza Virus Vaccine 71990 Given 01/11/2002 DO Not Use Split Influenza Virus Vaccine Vital Signs Date Vital Result Comment 04/03/2019 8:56am BP Systolic 138 mmHg BP Diastolic 64 mmHg Heart Rate 90 /min Body Temperature 97.5 F Respiratory Rate 18 /min O2 % BldC Oximetry 96 % Height 67.5 inches 5'7.50" Weight 185.00 lb BMI (Body Mass Index) 28.5 kg/m2 03/16/2019 9:24am BP Systolic 128 mmHg BP Diastolic 72 mmHg Heart Rate 96 /min Body Temperature 97.9 F O2 % BldC Oximetry 97 % Height 67.5 inches 5'7.50" Weight 184.00 lb BMI (Body Mass Index) 28.4 kg/m2 Results Test Acquired Date Facility Test Result H/L Range Note Ua - Micro (Fma) 04/03/2019 [facility] Appearance clear (607)- - Color yellow Glucose, Urine (Fma/CMC/CTX) 500 mg/dl High hx; DM Bilirubin neg Ketones neg SP Grav 1.010 Blood neg PH 5.0 Protein neg Urobil 0.2 Nitrite neg Leukocytes (Fma/CMC/Centrex) small Hyaline - /Lpf Granular - /Lpf WBC (Fma,Centrex) >50 RBC 0-2 Mucus (Fma/CBC/Centrex) sm amt /Lpf Epith rare /Lpf Bacteria 1+ /Hpf Amorphous (Fma/CMC/Centrex) - /Lpf Crystals, Fluid (Fma/CMC/CTX) - Z#Comments - Comprehensive Metabolic 03/16/2019 Oden Anu(a) Sodium 129 mEq/L Low 134-149 1 Prof Potassium 4.0 mEq/L 3.6-5.5 Chloride 89 mEq/L Low 94-112 2 Carbon Dioxide 29 mEq/L 21-32 Glucose 515 mg/dL High 70-105 3 BUN 66 mg/dL High 6-26 Creatinine 1.7 mg/dL High 0.6-1.4 BUN/Creat Ratio 38.8 CALC High 8.0-36.0 Calcium 10.7 mg/dL High 8.9-10.6 Total Protein 7.6 g/dL 6.4-8.3 Albumin 4.6 g/dL 3.8-5.5 Globulin 3.0 g/dL 2.0-4.8 A/G Ratio 1.5 CALC 0.6-2.3 Alk. Phosphatase 123 U/L High 22-95 4 Alt (SGPT) 19 U/L 7-35 Ast (Sgot) 15 U/L 5-34 Total Bilirubin 0.5 mg/dL 0.2-1.3 GFR Non- 44 ml/min/1.73m^ Low >=60 GFR 54 ml/min/1.73m^ Low >=60 CBC Electronic (Fma New) 03/16/2019 [facility] WBC 8.94 4.0-10.0 (607)- - RBC 5.20 3.93-6.0 Hemoglobin (Fma/CMC/CTX) 13.1 g/dL 12.0-17.0 Hematocrit (Fma/CMC/CTX) 38.3 % 35.0-50.0 Mean Corpuscular Vol 73.7 fL Low 80-95 Mean Corpuscular Hemoglobin 25.2 pg Low 25.6-32.2 Mean Corpuscular Hemo Concen 34.2 g/dL 32.2-36.0 Platelets 161 10^3/ul Low 163-400 RDW-CV 13.7 11.6-14.4 Mean Platelet Volume 10.3 fL 8.0-12.4 Absolute Neutrophils BLD 6.98 High 1.56-6.13 Absolute Lymphocytes 1.06 Low 1.18-3.74 Absolute Monocytes BLD Auto 0.66 0.24-0.82 Absolute Eos Blood 0.13 0.04-0.54 Absolute Basophils 0.05 0.01-0.08 Neutrophil % 77.9 % High 34.0-70.0 Lymph% 11.9 % Low 20.0-52.0 Monocytes % 7.4 % 5.0-12.0 Eos % 1.5 % 0.7-7.0 Basophil% 0.6 % 0-1.2 Ua - Micro (a) 03/16/2019 [facility] Appearance cloudy (607)- - Color yellow Glucose, Urine (Fma/CMC/CTX) 500 mg/dL Bilirubin neg Ketones neg SP Grav 1.010 Blood trace-lysed PH 5.0 Protein neg Urobil 0.2 Nitrite neg Leukocytes (Fma/CMC/Centrex) small Hyaline - /Lpf Granular - /Lpf WBC (Fma,Centrex) >50 some [place] RBC 1-3 Mucus (Fma/CBC/Centrex) - /Lpf Epith - /Lpf Bacteria trace /Hpf Amorphous (Fma/CMC/Centrex) - /Lpf Crystals, Fluid (Fma/CMC/CTX) - Z#Comments - Laboratory test 03/16/2019 [facility] Brain Natural 100 pg/ml <100 finding (607)- - Peptide pg/mL Laboratory test 03/16/2019 [facility] Ammonia, Plasma TNP g/dL 5 finding [address] [place] [address] (607)- - Request Problem TNP 6 Laboratory test 02/05/2019 [facility] Hemoglobin A1c 8.5 % High 4.1- 5.7 finding (607)- - (a) CBC Electronic 02/05/2019 [facility] WBC 8.41 4.0-10.0 (a New) (607)- - RBC 5.34 3.93-6.0 Hemoglobin (Fma/CMC/CTX) 13.3 g/dL 12.0-17.0 Hematocrit (Fma/CMC/CTX) 40.0 % 35.0-50.0 Mean Corpuscular Vol 74.9 fL Low 80-95 Mean Corpuscular Hemoglobin 24.9 pg Low 25.6-32.2 Mean Corpuscular Hemo Concen 33.3 g/dL 32.2-36.0 Platelets 182 10^3/ul 163-400 RDW-CV 13.6 11.6-14.4 Mean Platelet Volume 10.5 fL 8.0-12.4 Absolute Neutrophils BLD 6.09 1.56-6.13 Absolute Lymphocytes 1.46 1.18-3.74 Absolute Monocytes BLD Auto 0.56 0.24-0.82 Absolute Eos Blood 0.22 0.04-0.54 Absolute Basophils 0.04 0.01-0.08 Neutrophil % 72.3 % High 34.0-70.0 Lymph% 17.4 % Low 20.0-52.0 Monocytes % 6.7 % 5.0-12.0 Eos % 2.6 % 0.7-7.0 Basophil% 0.5 % 0-1.2 Comprehensive Metabolic 02/05/2019 Oden Anu(fma) Sodium 131 mEq/L Low 134-149 7 Prof Potassium 3.8 mEq/L 3.6-5.5 Chloride 90 mEq/L Low 94-112 8 Carbon Dioxide 30 mEq/L 21-32 Glucose 368 mg/dL High 70-105 BUN 52 mg/dL High 6-26 Creatinine 1.7 mg/dL High 0.6-1.4 BUN/Creat Ratio 30.6 CALC 8.0-36.0 Calcium 10.2 mg/dL 8.6-10.2 Total Protein 8.3 g/dL 6.4-8.3 Albumin 5.2 g/dL 3.8-5.5 Globulin 3.1 g/dL 2.0-4.8 A/G Ratio 1.7 CALC 0.6-2.3 Alk. Phosphatase 137 U/L High 22-95 Alt (SGPT) 18 U/L 7-35 Ast (Sgot) 16 U/L 5-34 Total Bilirubin 0.6 mg/dL 0.2-1.3 GFR Non- 44 ml/min/1.73m^ Low >=60 GFR 54 ml/min/1.73m^ Low >=60 Ua - Micro (Fma) 11/11/2018 [facility] Appearance clear (607)- - Color yellow Glucose, Urine (Fma/CMC/CTX) negative Bilirubin negative Ketones negative SP Grav 1.010 Blood trace-intact PH 5.0 Protein SSA +1 Urobil 0.2 Nitrite negative Leukocytes (Fma/CMC/Centrex) small Hyaline - /Lpf Granular - /Lpf WBC (Fma,Centrex) 15-20 RBC 0-3 Mucus (Fma/CBC/Centrex) 0 /Lpf Epith rare /Lpf Bacteria trace-+1 /Hpf Amorphous (Fma/CMC/Centrex) 0 /Lpf Crystals, Fluid (Fma/CMC/CTX) 0 Z#Comments 0 Comprehensive Metabolic 10/05/2018 Oden Anu([facility]) Sodium 136 mEq/L 134-149 Prof Potassium 5.3 mEq/L 3.6-5.5 Chloride 94 mEq/L 94-112 Carbon Dioxide 29 mEq/L 21-32 Glucose 496 mg/dL High 70-105 9 BUN 35 mg/dL High 6-26 10 Creatinine 1.4 mg/dL 0.6-1.4 BUN/Creat Ratio 25.0 CALC 8.0-36.0 Calcium 9.0 mg/dL 8.6-10.2 Total Protein 6.8 g/dL 6.4-8.3 Albumin 4.3 g/dL 3.8-5.5 Globulin 2.5 g/dL 2.0-4.8 A/G Ratio 1.7 CALC 0.6-2.3 Alk. Phosphatase 105 U/L High 22-95 11 Alt (SGPT) 12 U/L 7-35 Ast (Sgot) 11 U/L 5-34 Total Bilirubin 0.7 mg/dL 0.2-1.3 GFR Non- 55 ml/min/1.73m^ Low >=60 GFR >60 ml/min/1.73m^ >=60 CBC Electronic a 10/05/2018 Oden Anu([facility]) WBC 6.2 x10^3/UL 4.0- 10.0 RBC 4.60 x10^6/UL 3.93-6.00 HGB 10.9 g/dL Low 12.0-17.0 12 HCT 35 % 35-50 MCV 75.4 fL Low 80.0-95.0 MCH 23.7 pg Low 25.6-32.2 MCHC 31.4 g/dL Low 32.2-36.0 RDW-CV 15.4 % High 11.6-14.4 PLT 168 x10^3/UL 163-400 MPV 11.0 fL 9.4-12.4 [place]# 4.44 x10^3/UL 1.56-6.13 Lymph# 1.05 x10^3/UL Low 1.18-3.74 [place]# 0.49 x10^3/UL 0.24-0.82 Eos # 0.2 x10^3/UL 0.0-0.5 Baso # 0.04 x10^3/UL 0.01-0.08 [place]% 71.9 % High 34.0-70.0 Lymph % 17.0 % Low 20.0-52.0 [place]% 7.9 % 5.0-12.0 Eos% 2.4 % 0.7-7.0 Baso% 0.6 % 0.1-1.2 Laboratory test 10/05/2018 [facility] Hemoglobin A1c 8.1 % High 4.1- 5.7 finding (607)- - (Fma) Brain Natural Peptide 314 pg/mL High <100 1 RESULTS VERIFIED BY REPEAT ANALYSIS 2 RESULTS VERIFIED BY REPEAT ANALYSIS 3 RESULTS VERIFIED BY REPEAT ANALYSIS 4 consistent w/ previous results 5 Test Not Performed. Specimen is lipemic. Effective March 29, 2019 Ammonia, Plasma reference interval will be changing to: Age Male Female 0 days - 30 days Not Estab. Not Estab. 1 month - 6 months 42 - 137 42 - 137 7 months - 1 year 34 - 108 34 - 108 2 years - 12 years 33 - 97 33 - 97 13 years - 30 years 36 - 136 29 - 112 31 years - 40 years 40 - 160 30 - 130 41 years - 50 years 40 - 200 31 - 155 51 years - 70 years 40 - 200 34 - 178 71 years - 80 years 31 - 169 31 - 169 >80 years 28 - 135 28 - 135 6 Test Not Performed. Specimen is lipemic. TEST: [id number] Ammonia, Plasma 7 RESULTS VERIFIED BY REPEAT ANALYSIS 8 RESULTS VERIFIED BY REPEAT ANALYSIS 9 RESULTS VERIFIED BY REPEAT ANALYSIS 10 RESULTS VERIFIED BY REPEAT ANALYSIS 11 consistent w/ previous results 12 RESULTS VERIFIED BY REPEAT ANALYSIS Procedures Date Code Description Status 03/16/2019 22820 Pulse Oximetry Completed 02/05/2019 80081 Pulse Oximetry Completed 12/25/2018 00830 Pulse Oximetry Completed 04/06/2018 37787921 Colonoscopy Completed 11/19/2017 [id number] Diabetic Retinal Eye Exam Completed 11/17/2012 [id number] Colonoscopy Completed Medical Devices Description No Information Available Encounters Type Date Location Provider Dx Diagnosis Office Visit 03/16/2019 Main Office Mago Farooq E11.65 Type 2 diabetes 10:00a DANIEL Sewell mellitus with hyperglycemia I50.22 Chronic systolic (congestive) heart failure J44.9 Chronic obstructive pulmonary disease, unspecified I42.9 Cardiomyopathy, unspecified I10 Essential (primary) hypertension I25.10 Athscl heart disease of zuni coronary artery w/o ang pctrs R18.8 Other ascites K74.69 Other cirrhosis of liver Z95.0 Presence of cardiac pacemaker R82.998 Other abnormal findings in urine Office Visit 02/05/2019 4:00p Main Office Erasmo Hill, I10 Essential ( primary) M.D. hypertension E11.65 Type 2 diabetes mellitus with hyperglycemia I50.22 Chronic systolic (congestive) heart failure J44.9 Chronic obstructive pulmonary disease, unspecified I42.9 Cardiomyopathy, unspecified I25.10 Athscl heart disease of zuni coronary artery w/o ang pctrs D50.0 Iron deficiency anemia secondary to blood loss (chronic) G47.33 Obstructive sleep apnea (adult) (pediatric) R21 Rash and other nonspecific skin eruption Office Visit 12/25/2018 11:00a Main Office KATERINA Hines R05 Cough R06.02 Shortness of breath Office Visit 11/11/2018 3:00p Main Office Silvana Gorman N39.0 Urinary tract Rafita, DANIEL infection, site not specified Office Visit 10/05/2018 1:00p Main Office Erasmo Hill, I10 Essential ( primary) M.D. hypertension E11.65 Type 2 diabetes mellitus with hyperglycemia I50.22 Chronic systolic (congestive) heart failure J44.9 Chronic obstructive pulmonary disease, unspecified I42.9 Cardiomyopathy, unspecified I48.1 Persistent atrial fibrillation I25.10 Athscl heart disease of zuni coronary artery w/o ang pctrs D50.0 Iron deficiency anemia secondary to blood loss (chronic) G47.33 Obstructive sleep apnea (adult) (pediatric) H53.9 Unspecified visual disturbance Assessments Date Code Description Provider 04/03/2019 E11.65 Type 2 diabetes mellitus with hyperglycemia Mago Sewell, DANIEL 04/03/2019 I50.22 Chronic systolic (congestive) heart failure Mago Sewell, BEAN SNIPPER 04/03/2019 J44.9 Chronic obstructive pulmonary disease, Mago Sewell, BEAN SNIPPER unspecified 04/03/2019 I42.9 Cardiomyopathy, unspecified Mago Sewell, BEAN SNIPPER 04/03/2019 I10 Essential (primary) hypertension Mago Sewell, BEAN SNIPPER 04/03/2019 I25.10 Atherosclerotic heart disease of zuni Mago Sewell NP coronary artery with 04/03/2019 R18.8 Other ascites Mago Sewell, BEAN SNIPPER 04/03/2019 K74.69 Other cirrhosis of liver Mago Sewell, BEAN SNIPPER 04/03/2019 Z95.0 Presence of cardiac pacemaker Mago Sewell, DANIEL 04/03/2019 N39.0 Urinary tract infection, site not specified Mago Sewell, DANIEL 03/16/2019 E11.65 Type 2 diabetes mellitus with hyperglycemia Mago Sewell, BEAN SNIPPER 03/16/2019 I50.22 Chronic systolic (congestive) heart failure Mago Sewell, DANIEL 03/16/2019 J44.9 Chronic obstructive pulmonary disease, Mago Sewell, BEAN SNIPPER unspecified 03/16/2019 I42.9 Cardiomyopathy, unspecified Mago Sewell, BEAN SNIPPER 03/16/2019 I10 Essential (primary) hypertension Mago Sewell, BEAN SNIPPER 03/16/2019 I25.10 Atherosclerotic heart disease of zuni Mago Sewell NP coronary artery with 03/16/2019 R18.8 Other ascites Mago Sewell, BEAN SNIPPER 03/16/2019 K74.69 Other cirrhosis of liver Mago Sewell, BEAN SNIPPER 03/16/2019 Z95.0 Presence of cardiac pacemaker Mago Sewell, DANIEL 03/16/2019 R82.998 Other abnormal findings in urine Mago Sewell NP 02/05/2019 I10 Essential (primary) hypertension Erasmo Hill M.D. 02/05/2019 E11.65 Type 2 diabetes mellitus with hyperglycemia Erasmo Hill M.D. 02/05/2019 I50.22 Chronic systolic (congestive) heart failure Erasmo Hill M.D. 02/05/2019 J44.9 Chronic obstructive pulmonary disease, Erasmo Hill M.D. unspecified 02/05/2019 I42.9 Cardiomyopathy, unspecified Erasmo Hill M.D. 02/05/2019 I25.10 Atherosclerotic heart disease of zuni Erasmo Hill M.D. coronary artery with 02/05/2019 D50.0 Iron deficiency anemia secondary to blood Erasmo Hill M.D. loss (chronic) 02/05/2019 G47.33 Obstructive sleep apnea (adult) (pediatric) Erasmo Hill M.D. 02/05/2019 R21 Rash and other nonspecific skin eruption Erasmo Hill M.D. 12/25/2018 R05 Cough Rose Yang, [facility] 12/25/2018 R06.02 Shortness of breath Rose Yang, [facility] 11/12/2018 N39.0 Urinary tract infection, site not specified Silvana Eller, DANIEL 11/11/2018 N39.0 Urinary tract infection, site not specified Silvana Eller, DANIEL 10/05/2018 I10 Essential (primary) hypertension Erasmo Hill M.D. 10/05/2018 E11.65 Type 2 diabetes mellitus with hyperglycemia Erasmo Hill M.D. 10/05/2018 I50.22 Chronic systolic (congestive) heart failure Erasmo Hill M.D. 10/05/2018 J44.9 Chronic obstructive pulmonary disease, Erasmo Hill M.D. unspecified 10/05/2018 I42.9 Cardiomyopathy, unspecified Erasmo Hill M.D. 10/05/2018 I48.1 Persistent atrial fibrillation Erasmo Hill M.D. 10/05/2018 I25.10 Atherosclerotic heart disease of zuni Erasmo Hill M.D. coronary artery with 10/05/2018 D50.0 Iron deficiency anemia secondary to blood Erasmo Hill M.D. loss (chronic) 10/05/2018 G47.33 Obstructive sleep apnea (adult) (pediatric) Erasmo Hill M.D. 10/05/2018 H53.9 Visual disturbance Erasmo Hill M.D. Plan of Treatment Future Appointment(s):05/07/2019 2:00 pm - Erasmo Hill M.D. at Main [id number]/03/2019 - Mago Sewell, NPE11.65 Type 2 diabetes mellitus with hyperglycemiaComments:Recommend yearly diabetic eye and foot exams, and check on blood pressure periodically. Goal blood sugar is less than 140 in the morning or A1c less than 7. we will need to ensure he is taking his medications accurately, increased glimepiride starting today per triage with Liz poor dietary compliance poor activity tolerance discussed healthy lifestyle, declined [facility] referralFollow up:1 month with MD LizI50.22 Chronic systolic (congestive) heart failureComments:Patient was advised to call or return if there was a significant increase in peripheral edema, shortness of breath, or uhnrpoF56.9 Chronic obstructive pulmonary disease, unspecifiedComments:Continue current obxtyihqcK40.9 Cardiomyopathy, oqljqgssrxrL94 Essential (primary) hypertensionComments:The patient will continue to monitor blood pressure and let me know the blood pressure results if there are readings persistently above 140/80. Goal blood pressure is less than 140/80. Recommend low salt/cardiac diet and routine exercise.I25.10 Atherosclerotic heart disease of zuni coronary artery withComments:continue present medication,will call if there is any increase in the frequency or severity of angina not a candidate for Jardiance since GFR < 45consider stopping metformin due to CKD and add a different agent will discuss with MD Liz and consider treatment falxzacA44.8 Other ascitesComments:we have attempted ammonia level but blood is lipemic - patient presents today nonfasting , declined fasting blood work appointment due to transportation kihnjaT20.69 Other cirrhosis of mjkcfE82.0 Presence of cardiac pacemakerComments:follow up with Cardiology regarding the pacer painN39.0 Urinary tract infection, site not specifiedNew Medication:Cipro 500 mg - take one by mouth twice daily for 10 daysComments:Supportive Care: Drink lots of fluidswear cotton underweardo not soak in hot tubs/ bath tubs urinateafter sexual intercourse I expect you to start feeling better within the first 3 days of antibiotic therapy, if you are getting worse or not improving we need to see you. Please take entire course of the antibiotic to properly get rid of the full infection. To prevent stomach upset, please start consuming live cultures (yogurt, [place] probiotic, Kombucha) AllComments:Medication Management Patient Understands medications he 's taking ? Yes No Are there Barriers to Adherence? Yes No Has the patient been asked about herbal supplements and therapies, andOTC meds? Yes No Care Plan1. Patient has been queried about patient's goals/preferences and functional/lifestyle goals at relevant visits. If relevant, describe: na2. Treatment goals as explained to the patient: above3. Are there barriers to meeting treatment goals? Yes No If Yes, please describe: diet noncompliance, comorbid conditions, disease process, polypharmacy, transportation, financial 4. Self-Management goals as described to the patient : Yes NoAs always, we strongly encourage a healthy diet and making physical activity a part of your every day life. If you have questions about how or where to start, please contact the office. Functional Status Description No Information Available Mental Status Description No Information Available Referrals Refer to Reason for Referral Status Appt Date [facility] PHYSICAL THERAPY evaluate and treat gait Sent 00 /0000 disturbance--pt or his VNS nurse will call [address] [facility] [address] [place], [place] [address] [phone] [place] Diabetic eye exam. LT Scheduled 12/11/[address] [facility] [place] [id number] [phone]
--- OUTSIDE RECORDS SUMMARY | 2019-05-13 12:16 | XMS REPORT ---
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 Diagnosis Active Catia (current) (current) [place] use of use of anticoagula anticoagula nts nts assisted assisted Diagnosis Active Catia (current) (current) [place] use [...] 10:00:00 [place] deficit: cg 11:00: 00 Balance/End balance/mission coordinator PT/OT: Resolve 2018-12-29 Catia yousif rdination [...] 02-25 17:15:00 [place] sigala device ransfer 14:50: [id number] present 00 Bed transfer PT/OT: Bed Resolve 2018-12-29 Deejay Mobility/Tr deficit: Mobility/T d 02-25 17:15:00 [place] sigala toilet/comm ransfer 14:50: [id number] ode 00 Bed transfer PT/OT: Bed Resolve 2018-12-29 Deejay Mobility/Tr deficit: Mobility/T d 02-25 17:15:00 [place] sigala shower/tub ransfer 14:50: [id number] 00 Bed knowledge/s PT/OT: Bed Resolve 2018-12-29 Deejay Mobility/Tr kill Mobility/T d 02-25 17:15:00 [place] sigala deficit: pt ransfer 14:50: [id number] 00 Balance/End knowledge/s PT/OT: Resolve 2018-12-29 Deejay yousif kill Balance/En d 02-25 17:15:00 [place] deficit: pt durance 14:50: [id number] 00 Environment knowledge/s PT/OT: Resolve 2018-12-29 Deejay hennessy kill Environmen d 02-25 17:15:00 [place] deficit: pt t 14:50: [id number] 00 Environment environment PT/OT: Resolve 2018-12-29 Deejay hennessy al barriers Environmen d 02-25 17:15:00 [place] t 14:50: [id number] 00 Gait/Locomo gait PT/OT: Resolve 2018-12-29 Deejay tisimran assistive Gait/Locom d 02-25 17:15:00 Garibay problems device otion 14:50: [id number] present 00 Gait/Locomo knowledge/s PT/OT: Resolve 2018-12-29 Deejay ocampo kill Gait/Locom d 02-25 17:15:00 Garibay problems deficit: pt otion 14:50: [id number] 00 Cardio edema Cardiovasc Resolve 2018-05-27 Catia [...] d 2- 10:00:00 [place] deficit: pt 09:50: [id number] 00 Cardio knowledge/s Cardiovasc Resolve 2018-05-27 Vonnie kill ular d 2 10:00:00 [place] deficit: cg 09:50: [id number] 00 Respiratory lung sounds Respirator Resolve 2018-04-17 Vonnie deficit y d 2 09:00:00 [place] 09:50: [id number] 00 Medication oral med Meds Resolve 2018-04-24 [...] d 4- 09:00:00 [place] deficit: pt 10:00: [id number] 00 Social knowledge/s FEDE: Resolve 2018-2018-05-21 [facility] Services kill Social d 4- 10:00:00 [place] deficit - Services 10:00: [id number] pt 00 Social knowledge/s FEDE: Resolve 2018-2018-05-21 [facility] kill Social d 4- 10:00:00 [place] deficit - Services 10:00: [id number] cg 00 24 Hr Diet nutrition NT: 24Hr Active Silvana intake Diet 05-22 Morris deficit 09:50: [id number] 00 24 Hr Diet knowledge/s NT: 24Hr Resolve 2018-05-22 Silvana kill Diet d 05-22 09:50:00 Morris deficit - 09:50: [id number] pt 00 Nutritional food NT: Resolve 2018-05-22 Silvana Barrier storage/pre Barriers d 05-22 09:50:00 Morris p deficit 09:50: [id number] 00 Respiratory lung sounds Respirator Resolve 2018-05-27 Vonnie deficit y d 05-25 10:00:00 [place] 09:10: [id number] 00 Respiratory nebulizer Respirator Resolve 2018-05-27 Vonnie treatment y d 05-25 10:00:00 [place] in home 09:10: [id number] 00 Neuro impaired Neuro/Emot Resolve 2018-06-19 Catia toscano-ma ion d 05-27 09:00:00 Sherman addison 10:00: 00 Test/Treatm tests Test/Injec Resolve 2018-06-09 Vonnie ent ordered t/Chele d 05-28 09:05:00 [place] [id number] Cardio knowledge/s Cardiovasc Resolve 2018-06-06 Catia blackar [...] present y d 4-15 09:00:00 [place] 09:00: [id number] 00 Respiratory oxygen Respirator Resolve 2018-06-10 Vonnie treatments y d 4-15 09:00:00 [place] in home 09:00: [id number] 00 Respiratory lung sounds Respirator Resolve 2018-06-06 Vonnie deficit y d 4-15 12:00:00 [place] 09:00: [id number] 00 Endo/Viktor diabetic Endo/Viktor Resolve 2018-06-06 Catia [...] d 06-08 09:00:00 [place] deficit: pt 10:35: [id number] 00 24 Hr Diet nutrition NT: 24Hr Unknown Silvana intake Diet 06-08 Morris deficit 10:40: [id number] 00 24 Hr Diet knowledge/s NT: 24Hr Resolve 2018-06-08 Silvana kill Diet d 06-08 10:40:00 Morris deficit - 10:40: [id number] pt 00 Respiratory lung sounds Respirator Resolve 2018-06-10 Vonnie deficit y d 06-09 09:00:00 [place] 09:05: [id number] 00 Musculoskel requires Musculoske Resolve 2018-06-10 Vonnie etal human letal d 06-09 09:00:00 [place] assist to 09:05: [id number] leave home 00 Cardio edema Cardiovasc Resolve [...] d 06-11 10:20:00 [place] deficit: cg 10:00: [id number] 00 Nutrition changing Nutrition Resolve 2018-06-26 Catia weight/appe d 06-12 08:30:00 [place] tite 10:20: 00 Nutrition knowledge/s Nutrition Resolve 2018-06-12 Catia kill d 06-12 10:20:00 [place] deficit: pt 10:20: 00 Cardio edema Cardiovasc Resolve 2018-06-17 Vonnierea wilhelm d 06-15 09:00:00 [place] 09:15: [id number] 00 Cardio pacemaker/I Cardiovasc Resolve 2018-06-17 Vonnierea CINTRON ular d 06-15 09:00:00 [place] 09:15: [id number] 00 Respiratory dyspnea Respirator Resolve 2018-06-17 Vonnie present y d 06-15 09:00:00 [place] 09:15: [id number] 00 Respiratory oxygen Respirator Resolve 2018-06-19 Vonnie treatments y d 06-15 09:00:00 [place] in home 09:15: [id number] 00 Respiratory lung sounds Respirator Resolve 2018-06-17 Vonnie deficit y d 06-15 09:00:00 [place] 09:15: [id number] 00 Nutrition knowledge/s Nutrition Resolve 2018-06-17 Vonnie kill d 06-15 09:00:00 [place] deficit: pt 09:15: [id number] 00 Sensory impaired Sensory Resolve 2018-06-22 Catia [...] NT: 24Hr Unknown Silvana intake Diet 5- Morris deficit 15:30: [id number] 00 24 Hr Diet knowledge/s NT: 24Hr Resolve 2018-06-18 Silvana kill Diet d 5- 15:30:00 Morris deficit - 15:30: [id number] pt 00 Nutrition knowledge/s Nutrition Resolve 2018-06-19 Catia kill d 06-19 09:00:00 [place] deficit: pt 09:00: 00 Safety can be left Safety Resolve 2018-06-26 Actia alone for d 06-19 08:30:00 [place] only short 09:00: periods 00 Medication oral med Meds Resolve 2018-06-19 Catia assistance d 06-19 09:00:00 [place] required 09:00: 00 Cardio edema Cardiovasc Resolve 2018-06-26 Vonnie wilhelm d 06-22 08:30:00 [place] 09:15: [id number] 00 Cardio knowledge/s Cardiovasc Resolve 2018-07-24 Vonnieajith fletcher ular d 06-22 09:00:00 [place] deficit: pt 09:15: [id number] 00 Cardio pacemaker/I Cardiovasc Resolve 2018-06-26 Vonnierea CINTRON ular d 06-22 08:30:00 [place] 09:15: [id number] 00 Nutrition knowledge/s Nutrition Resolve 2018-06-24 Vonnie kill d 06-22 11:00:00 [place] deficit: pt 09:15: [id number] 00 Nutrition knowledge/s Nutrition Resolve 2018-06-24 Vonnie kill d 06-22 11:00:00 [place] deficit: cg 09:15: [id number] 00 Neuro impaired Neuro/Emot Resolve 2018-06-26 Vonnie decision-ma ion d 06-22 08:30:00 [place] addison 09:15: [id number] 00 Neuro knowledge/s Neuro/Emot Resolve 2018-06-22 Vonnie kill ion d 06-22 09:15:00 [place] deficit: pt 09:15: [id number] 00 Neuro knowledge/s Neuro/Emot Resolve 2018-06-24 Vonnie kill ion d 06-23 11:00:00 [place] deficit: pt 09:30: [id number] 00 Social financial FEDE: Active [facility] resource Social 06-23 [place] deficit Services 09:45: [id number] 00 Social knowledge/s FEDE: Resolve 2018-06-23 [facility] kill Social d 06-23 09:45:[facility] 09[facility]45: [id number] pt 00 Respiratory oxygen Respirator Resolve 2018-06-26 [...] Vonnie wilhelm d 5-13 16:00:00 [place] 09:30: [id number] 00 Respiratory oxygen Respirator Resolve 2018-07-08 Vonnierea sánchez y d 5-13 16:00:00 [place] in home 09:30: [id number] 00 Nutrition knowledge/s Nutrition Resolve 2018-07-01 Vonnie fletcher d 5-13 10:00:00 [place] deficit: pt 09:30: [id number] 00 Cardio chest pain Cardiovasc Resolve 2018-07-08 Catia wilhelm d 5-15 16:00:00 [place] 10:00: 00 Cardio pacemaker/I Cardiovasc Resolve 2018-07-08 Catia wilhelm d -15 16:00:00 [place] 10:00: 00 Social knowledge/s FEDE: Resolve 2018-07-08 Catia Joy kill Social d 5-15 11:00:00 [place] deficit - Services 10:00: pt 00 Nutrition knowledge/s Nutrition Resolve 2018-07-08 Vonnie fletcher d -20 16:00:00 [place] deficit: pt 09:15: [id number] 00 Safety structural Safety Resolve 2018-07-23 Roslyn barriers d 07-08 11:15:00 [place] present 11:00: [id number] 00 Safety sanitation Safety Resolve 2018-07-23 Roslyn hazards d 07-08 11:15:00 [place] present 11:00: [id number] 00 Safety can be left Safety Resolve 2018-07-23 Roslyn alone for d 07-08 11:15:00 [place] only short 11:00: [id number] periods 00 Neuro impaired Neuro/Emot Active Catia antunez 07-08 Sherman jaime 16:00: 00 Medication oral med Meds Resolve 2018-07-10 Catia assistance d 07-08 09:08:00 [place] required 16:00: 00 Medication injectable Meds Unknown Catia med 07-08 [place] assistance 16:00: required 00 Cardio edema Cardiovasc Resolve 2018-07-23 Vonnie ular d 07-10 11:15:00 [place] 09:08: [id number] 00 Cardio pacemaker/I Cardiovasc Resolve 2018-07-23 Vonnie CD ular d 07-10 11:15:00 [place] 09:08: [id number] 00 Respiratory oxygen Respirator Resolve 2018-08-14 Vonnie treatments y d 07-10 09:00:00 [place] in home 09:08: [id number] 00 Respiratory lung sounds Respirator Resolve 2018-07-24 Vonnie deficit y d 07-10 09:00:00 [place] 09:08: [id number] 00 Nutrition knowledge/s Nutrition Resolve 2018-07-23 Vonnie kill d 07-10 11:15:00 [place] deficit: pt 09:08: [id number] 00 Neuro knowledge/s Neuro/Emot Resolve 2018-07-23 Vonnie kill ion d 07-10 11:15:00 [place] deficit: pt 09:08: [id number] 00 Social knowledge/s FEDE: Resolve 2018-09-29 Vonnie Services kill Social d 07-10 10:00:00 [place] deficit - Services 09:08: [id number] pt 00 Neuro memory Neuro/Emot Resolve 2018-07-23 Vonnie deficit ion d 07-14 11:15:00 [place] needing 09:18: [id number] supervision 00 Pain frequent Pain Mgmt Active Vonnie pain 07-17 [place] 09:40: [id number] 00 Nutrition knowledge/s Nutrition Resolve 2018-07-23 Vonnie kill d 07-17 11:15:00 [place] deficit: cg 09:40: [id number] 00 Medication injectable Meds Unknown Vonnie med 07-17 [place] assistance 09:40: [id number] required 00 Respiratory bloody Respirator Resolve 2018-2018-07-27 Vonnie sputum y d 6 09:00:00 [place] 09:07: [id number] 00 Respiratory dyspnea Respirator Resolve 2018-07-27 Catia [...] d 6-10 09:00:00 [place] deficit: pt 09:00: [id number] 00 Nutrition nutritional Nutrition Resolve 2018-2018-07-31 Vonnie restriction d 6-10 09:00:00 [place] s 09:00: [id number] 00 Cardio pacemaker/I Cardiovasc Resolve 2018-2018-07-31 Catia CINTRON ular d 6-14 09:00:00 [place] 09:00: 00 Respiratory CPAP Respirator Resolve 2018-07-31 Catia treatments y d 6-14 09:00:00 [place] in home 09:00: 00 Medication oral med Meds Resolve 2018-08-03 Catia assistance d 6-14 09:00:00 [place] required 09:00: 00 Nutrition knowledge/s Nutrition Unknown Roslyn kill 6-14 [place] deficit: pt 10:00: [id number] 00 Nutrition knowledge/s Nutrition Resolve 2018-08-07 Roslyn kill d 6-14 10:00:00 [place] deficit: cg 10:00: [id number] 00 Nutrition nutritional Nutrition Unknown Roslyn restriction 6-14 [place] s 10:00: [id number] 00 Safety can be left Safety Resolve 2018-08-07 Roslyn alone for d 6-14 10:00:00 [place] only short 10:00: [id number] periods 00 Nutrition knowledge/s Nutrition Unknown Catia kill 6-14 [place] deficit: pt 10:30: 00 Nutrition nutritional Nutrition Unknown Catia restriction 6-14 [place] s 10:30: 00 Respiratory CPAP Respirator Resolve 2018-08-07 Vonnie treatments y d 6-17 10:00:00 [place] in home 09:00: [id number] 00 Nutrition knowledge/s Nutrition Resolve 2018-08-07 Vonnie kill d 6-17 10:00:00 [place] deficit: pt 09:00: [id number] 00 Nutrition nutritional Nutrition Resolve 2018-08-07 Vonnie restriction d 6-17 10:00:00 [place] s 09:00: [id number] 00 Cardio pacemaker/I Cardiovasc Resolve 2018-08-10 Catia [...] factor d 08-14 09:00:00 Thomas present 09:00: [id number] 00 Safety fire risk Safety Resolve 2018-08-28 Jennifer Baum present d 08-14 09:00:00 Thomas 09:00: [id number] 00 Safety risk for Safety Resolve 2018-08-28 Jennifer Baum hospitaliza d 08-14 09:00:00 Thomas tion 09:00: [id number] 00 Medication oral med Meds Resolve 2018-08-14 Catia assistance d 08-14 09:00:00 [place] required 09:00: 00 Cardio pacemaker/I Cardiovasc Resolve 2018-2018-08-28 Catia blackar d 08-21 09:00:00 [place] 09:00: 00 Medication oral med Meds Resolve 2018-2018-08-28 Catia assistance d 7 09:00:00 [place] required 09:00: 00 Elimination nausea/vomi Eliminatio Resolve 2018-09-04 Catia bass n d 08-28 09:45:00 [place] 09:00: 00 Safety [facility] for [facility] 09:45: [id number] 00 Cardio pacemaker/I Cardiovasc Resolve 2018-09-11 Catia [...] Vonnie wilhelm d 09-18 10:20:00 [place] 10:00: [id number] 00 Safety risk for Safety Resolve 2018-09-18 Vonnie hospitaliza d 09-18 10:00:00 [place] tion 10:00: [id number] 00 Cardio chest pain Cardiovasc Resolve 2018-09-25 Vonnierea wilhelm d 09-25 10:10:00 [place] 10:10: [id number] 00 Cardio knowledge/s Cardiovasc Resolve 2018-09-25 Vonnie chance wilhelm d 09-25 10:10:00 [place] deficit: cg 10:10: [id number] 00 Neuro memory Neuro/Emot Resolve 2018-10-23 Vonnie deficit ion d 09-25 09:00:00 [place] needing 10:10: [id number] supervision 00 Safety risk for Safety Resolve 2018-09-25 Vonnie hospitaliza d 09-25 10:10:00 [place] tion 10:10: [id number] 00 Neuro depressive Neuro/Emot Resolve 2018-10-23 Catia feelings ion d 10-02 09:00:00 [place] present 09:00: 00 Safety risk for Safety Resolve 2018 Catia hospitaliza d 10-02 09:00:00 [place] tion 09:00: 00 Safety risk for Safety Resolve 2018-10-09 Vonnie hospitaliza d 10-06 10:20:00 [place] tion 11:40: [id number] 00 Elimination nausea/vomi Eliminatio Resolve 2018-10-16 Catia [...] FEDE: Active [facility] Services kill Social 10-28 [facility] deficit - Services 16:15: [id number] pt 00 Cardio pacemaker/I Cardiovasc Resolve 2018-10-30 [...] 2018-02 Roslyn hospitaliza 02-21 [place] tion 10:15: [id number] 00 Safety sanitation Safety Resolve 2018-022018-12-30 Janet hazards d 1-05 10:00:00 Chaudhari present 15:10: [id number] 00 Safety fall risk Safety Resolve 2018-022018-12-24 Janet factor d 105 09:00:00 Chaudhari present 15:10: [id number] 00 Respiratory oxygen Respirator Resolve 2018-022018-12-30 Catia [...] restriction d 03-13 08:00:00 [place] s 15:30: [id number] 00 Respiratory oxygen Respirator Resolve 2018-022019-01-15 Catia [...] 08:30: 00 Integument skin Integument Resolve 2018-022019-02-12 Caita integrity d 2-20 09:00:00 [place] risk 08:30: 00 Nutrition nutritional Nutrition Resolve 2018-022019-02-05 Catia restriction d 2-20 08:30:00 [place] s 08:30: 00 Nutrition nutritional Nutrition Unknown 2018-02 Roslyn restriction 2-20 [place] s 10:15: [id number] 00 Cardio pacemaker/I Cardiovasc Resolve 2018-022019-02-19 Catia [...] 2017-05 Massiel Unknown -11 (Maria G) Shaun [id number] IVP DYE Unknown Active Unknown Reaction 2017-05 Massiel Unknown -11 (Maria G) Shaun [id number] Medications Ordered Filled Start Stop Current Ordering [...] Unknown Unknown 20 mg 20 mg 04-24 [place], [place] tablet tablet furosemide furosemide 2018- No [...] Unknown Unknown mcg/actuati mcg/actuati 06-25 ,[place] on [address] Cipro 500 Cipro 500 2018- No [...]
--- OUTSIDE RECORDS SUMMARY | 2019-05-13 12:16 | XMS REPORT ---
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 PT/OT: Resolve 2018-12-29 Catia yousif rdination [...] 02-25 17:15:00 [place] sigala device ransfer 14:50: [id number] present 00 Bed transfer PT/OT: Bed Resolve 2018-12-29 Deejay Mobility/Tr deficit: Mobility/T d 02-25 17:15:00 [place] sigala toilet/comm ransfer 14:50: [id number] ode 00 Bed transfer PT/OT: Bed Resolve 2018-12-29 Deejay Mobility/Tr deficit: Mobility/T d 02-25 17:15:00 [place] sigala shower/tub ransfer 14:50: [id number] 00 Bed knowledge/s PT/OT: Bed Resolve 2018-12-29 Deejay Mobility/Tr kill Mobility/T d 02-25 17:15:00 [place] sigala deficit: pt ransfer 14:50: [id number] 00 Balance/End knowledge/s PT/OT: Resolve 2018-12-29 Deejay yousif kill Balance/En d 02-25 17:15:00 [place] deficit: pt durance 14:50: [id number] 00 Environment knowledge/s PT/OT: Resolve 2018-12-29 Deejay hennessy kill Environmen d 02-25 17:15:00 [place] deficit: pt t 14:50: [id number] 00 Environment environment PT/OT: Resolve 2018-12-29 Deejay hennessy al barriers Environmen d 02-25 17:15:00 [place] t 14:50: [id number] 00 Gait/Locomo gait PT/OT: Resolve 2018-12-29 Deejay tisimran assistive Gait/Locom d 02-25 17:15:00 Garibay problems device otion 14:50: [id number] present 00 Gait/Locomo knowledge/s PT/OT: Resolve 2018-12-29 Deejay ocampo kill Gait/Locom d 02-25 17:15:00 Garibay problems deficit: pt otion 14:50: [id number] 00 Cardio edema Cardiovasc Resolve 2018-05-27 Catia [...] d 2- 10:00:00 [place] deficit: pt 09:50: [id number] 00 Cardio knowledge/s Cardiovasc Resolve 2018-05-27 Vonnie kill ular d 2 10:00:00 [place] deficit: cg 09:50: [id number] 00 Respiratory lung sounds Respirator Resolve 2018-04-17 Vonnie deficit y d 2 09:00:00 [place] 09:50: [id number] 00 Medication oral med Meds Resolve 2018-04-24 [...] d 4- 09:00:00 [place] deficit: pt 10:00: [id number] 00 Social knowledge/s FEDE: Resolve 2018-2018-05-21 [facility] Services kill Social d 4- 10:00:00 [place] deficit - Services 10:00: [id number] pt 00 Social knowledge/s FEDE: Resolve 2018-2018-05-21 [facility] kill Social d 4- 10:00:00 [place] deficit - Services 10:00: [id number] cg 00 24 Hr Diet nutrition NT: 24Hr Active Silvana intake Diet 05-22 [place] deficit 09:50: [id number] 00 24 Hr Diet knowledge/s NT: 24Hr Resolve 2018-05-22 Silvana kill Diet d 05-22 09:50:00 [place] deficit - 09:50: [id number] pt 00 Nutritional food NT: Resolve 2018-05-22 Silvana Barrier storage/pre Barriers d 05-22 09:50:00 [place] p deficit 09:50: [id number] 00 Respiratory lung sounds Respirator Resolve 2018-05-27 Vonnie deficit y d 05-25 10:00:00 [place] 09:10: [id number] 00 Respiratory nebulizer Respirator Resolve 2018-05-27 Vonnie treatment y d 05-25 10:00:00 [place] in home 09:10: [id number] 00 Neuro impaired Neuro/Emot Resolve 2018-06-19 Catia toscano-ma ion d 05-27 09:00:00 Sherman addison 10:00: 00 Test/Treatm tests Test/Injec Resolve 2018-06-09 Vonnie ent ordered t/Chele d 05-28 09:05:00 [place] [id number] Cardio knowledge/s Cardiovasc Resolve 2018-06-06 Catia blackar [...] present y d 4-15 09:00:00 [place] 09:00: [id number] 00 Respiratory oxygen Respirator Resolve 2018-06-10 Vonnie treatments y d 4-15 09:00:00 [place] in home 09:00: [id number] 00 Respiratory lung sounds Respirator Resolve 2018-06-06 Vonnie deficit y d 4-15 12:00:00 [place] 09:00: [id number] 00 Endo/Viktor diabetic Endo/Viktor Resolve 2018-06-06 Catia [...] d 06-08 09:00:00 [place] deficit: pt 10:35: [id number] 00 24 Hr Diet nutrition NT: 24Hr Unknown Silvana intake Diet 06-08 [place] deficit 10:40: [id number] 00 24 Hr Diet knowledge/s NT: 24Hr Resolve 2018-06-08 Silvana kill Diet d 06-08 10:40:00 [place] deficit - 10:40: [id number] pt 00 Respiratory lung sounds Respirator Resolve 2018-06-10 Vonnie deficit y d 06-09 09:00:00 [place] 09:05: [id number] 00 Musculoskel requires Musculoske Resolve 2018-06-10 Vonnie etal human letal d 06-09 09:00:00 [place] assist to 09:05: [id number] leave home 00 Cardio edema Cardiovasc Resolve [...] d 06-11 10:20:00 [place] deficit: cg 10:00: [id number] 00 Nutrition changing Nutrition Resolve 2018-06-26 Catia weight/appe d 06-12 08:30:00 [place] tite 10:20: 00 Nutrition knowledge/s Nutrition Resolve 2018-06-12 Catia kill d 06-12 10:20:00 [place] deficit: pt 10:20: 00 Cardio edema Cardiovasc Resolve 2018-06-17 Vonnierea wilhelm d 06-15 09:00:00 [place] 09:15: [id number] 00 Cardio pacemaker/I Cardiovasc Resolve 2018-06-17 Vonnierea CINTRON ular d 06-15 09:00:00 [place] 09:15: [id number] 00 Respiratory dyspnea Respirator Resolve 2018-06-17 Vonnie present y d 06-15 09:00:00 [place] 09:15: [id number] 00 Respiratory oxygen Respirator Resolve 2018-06-19 Vonnie treatments y d 06-15 09:00:00 [place] in home 09:15: [id number] 00 Respiratory lung sounds Respirator Resolve 2018-06-17 Vonnie deficit y d 06-15 09:00:00 [place] 09:15: [id number] 00 Nutrition knowledge/s Nutrition Resolve 2018-06-17 Vonnie kill d 06-15 09:00:00 [place] deficit: pt 09:15: [id number] 00 Sensory impaired Sensory Resolve 2018-06-22 Catia [...] NT: 24Hr Unknown Silvana intake Diet 5- [place] deficit 15:30: [id number] 00 24 Hr Diet knowledge/s NT: 24Hr Resolve 2018-06-18 Silvana kill Diet d 5- 15:30:00 [place] deficit - 15:30: [id number] pt 00 Nutrition knowledge/s Nutrition Resolve 2018-06-19 Catia kill d 06-19 09:00:00 [place] deficit: pt 09:00: 00 Safety can be left Safety Resolve 2018-06-26 Catia alone for d 06-19 08:30:00 [place] only short 09:00: periods 00 Medication oral med Meds Resolve 2018-06-19 Catia assistance d 06-19 09:00:00 [place] required 09:00: 00 Cardio edema Cardiovasc Resolve 2018-06-26 Vonnie wilhelm d 06-22 08:30:00 [place] 09:15: [id number] 00 Cardio knowledge/s Cardiovasc Resolve 2018-07-24 Vonnieajith fletcher ular d 06-22 09:00:00 [place] deficit: pt 09:15: [id number] 00 Cardio pacemaker/I Cardiovasc Resolve 2018-06-26 Vonnierea CINTRON ular d 06-22 08:30:00 [place] 09:15: [id number] 00 Nutrition knowledge/s Nutrition Resolve 2018-06-24 Vonnie kill d 06-22 11:00:00 [place] deficit: pt 09:15: [id number] 00 Nutrition knowledge/s Nutrition Resolve 2018-06-24 Vonnie kill d 06-22 11:00:00 [place] deficit: cg 09:15: [id number] 00 Neuro impaired Neuro/Emot Resolve 2018-06-26 Vonnie decision-ma ion d 06-22 08:30:00 [place] addison 09:15: [id number] 00 Neuro knowledge/s Neuro/Emot Resolve 2018-06-22 Vonnie kill ion d 06-22 09:15:00 [place] deficit: pt 09:15: [id number] 00 Neuro knowledge/s Neuro/Emot Resolve 2018-06-24 Vonnie kill ion d 06-23 11:00:00 [place] deficit: pt 09:30: [id number] 00 Social financial FEDE: Active [facility] resource Social 06-23 [place] deficit Services 09:45: [id number] 00 Social knowledge/s FEDE: Resolve 2018-06-23 [facility] kill Social d 06-23 09:45:[facility] 09[facility]45: [id number] pt 00 Respiratory oxygen Respirator Resolve 2018-06-26 [...] Vonnie wilhelm d 5-13 16:00:00 [place] 09:30: [id number] 00 Respiratory oxygen Respirator Resolve 2018-07-08 Vonnierea sánchez y d 5-13 16:00:00 [place] in home 09:30: [id number] 00 Nutrition knowledge/s Nutrition Resolve 2018-07-01 Vonnie fletcher d 5-13 10:00:00 [place] deficit: pt 09:30: [id number] 00 Cardio chest pain Cardiovasc Resolve 2018-07-08 Catia wilhelm d 5-15 16:00:00 [place] 10:00: 00 Cardio pacemaker/I Cardiovasc Resolve 2018-07-08 Catia wilhelm d -15 16:00:00 [place] 10:00: 00 Social knowledge/s FEDE: Resolve 2018-07-08 Catia Joy kill Social d 5-15 11:00:00 [place] deficit - Services 10:00: pt 00 Nutrition knowledge/s Nutrition Resolve 2018-07-08 Vonnie fletcher d -20 16:00:00 [place] deficit: pt 09:15: [id number] 00 Safety structural Safety Resolve 2018-07-23 Roslyn barriers d 07-08 11:15:00 [place] present 11:00: [id number] 00 Safety sanitation Safety Resolve 2018-07-23 Roslyn hazards d 07-08 11:15:00 [place] present 11:00: [id number] 00 Safety can be left Safety Resolve 2018-07-23 Roslyn alone for d 07-08 11:15:00 [place] only short 11:00: [id number] periods 00 Neuro impaired Neuro/Emot Active Catia antunez 07-08 Sherman jaime 16:00: 00 Medication oral med Meds Resolve 2018-07-10 Catia assistance d 07-08 09:08:00 [place] required 16:00: 00 Medication injectable Meds Unknown Catia med 07-08 [place] assistance 16:00: required 00 Cardio edema Cardiovasc Resolve 2018-07-23 Vonnie ular d 07-10 11:15:00 [place] 09:08: [id number] 00 Cardio pacemaker/I Cardiovasc Resolve 2018-07-23 Vonnie CD ular d 07-10 11:15:00 [place] 09:08: [id number] 00 Respiratory oxygen Respirator Resolve 2018-08-14 Vonnie treatments y d 07-10 09:00:00 [place] in home 09:08: [id number] 00 Respiratory lung sounds Respirator Resolve 2018-07-24 Vonnie deficit y d 07-10 09:00:00 [place] 09:08: [id number] 00 Nutrition knowledge/s Nutrition Resolve 2018-07-23 Vonnie kill d 07-10 11:15:00 [place] deficit: pt 09:08: [id number] 00 Neuro knowledge/s Neuro/Emot Resolve 2018-07-23 Vonnie kill ion d 07-10 11:15:00 [place] deficit: pt 09:08: [id number] 00 Social knowledge/s FEDE: Resolve 2018-09-29 [facility] Services kill Social d 07-10 10:00:00 [place] deficit - Services 09:08: [id number] pt 00 Neuro memory Neuro/Emot Resolve 2018-07-23 Vonnie deficit ion d 07-14 11:15:00 [place] needing 09:18: [id number] supervision 00 Pain frequent Pain Mgmt Active Vonnie pain 07-17 [place] 09:40: [id number] 00 Nutrition knowledge/s Nutrition Resolve 2018-07-23 Vonnie kill d 07-17 11:15:00 [place] deficit: cg 09:40: [id number] 00 Medication injectable Meds Unknown Vonnie med 07-17 [place] assistance 09:40: [id number] required 00 Respiratory bloody Respirator Resolve 2018-2018-07-27 Vonnie sputum y d 6 09:00:00 [place] 09:07: [id number] 00 Respiratory dyspnea Respirator Resolve 2018-07-27 Catia [...] d 6-10 09:00:00 [place] deficit: pt 09:00: [id number] 00 Nutrition nutritional Nutrition Resolve 2018-2018-07-31 Vonnie restriction d 6-10 09:00:00 [place] s 09:00: [id number] 00 Cardio pacemaker/I Cardiovasc Resolve 2018-2018-07-31 Catia CINTRON ular d 6-14 09:00:00 [place] 09:00: 00 Respiratory CPAP Respirator Resolve 2018-07-31 Catia treatments y d 6-14 09:00:00 [place] in home 09:00: 00 Medication oral med Meds Resolve 2018-08-03 Catia assistance d 6-14 09:00:00 [place] required 09:00: 00 Nutrition knowledge/s Nutrition Unknown Roslyn kill 6-14 [place] deficit: pt 10:00: [id number] 00 Nutrition knowledge/s Nutrition Resolve 2018-08-07 Roslyn kill d 6-14 10:00:00 [place] deficit: cg 10:00: [id number] 00 Nutrition nutritional Nutrition Unknown Roslyn restriction 6-14 [place] s 10:00: [id number] 00 Safety can be left Safety Resolve 2018-08-07 [place] alone for d 6-14 10:00:00 [place] only short 10:00: [id number] periods 00 Nutrition knowledge/s Nutrition Unknown Catia kill 6-14 [place] deficit: pt 10:30: 00 Nutrition nutritional Nutrition Unknown Catia restriction 6-14 [place] s 10:30: 00 Respiratory CPAP Respirator Resolve 2018-08-07 Vonnie treatments y d 6-17 10:00:00 [place] in home 09:00: [id number] 00 Nutrition knowledge/s Nutrition Resolve 2018-08-07 Vonnie kill d 6-17 10:00:00 [place] deficit: pt 09:00: [id number] 00 Nutrition nutritional Nutrition Resolve 2018-08-07 Vonnie restriction d 6-17 10:00:00 [place] s 09:00: [id number] 00 Cardio pacemaker/I Cardiovasc Resolve 2018-08-10 Catia [...] factor d 08-14 09:00:00 Thomas present 09:00: [id number] 00 Safety fire risk Safety Resolve 2018-08-28 Jennifer Baum present d 08-14 09:00:00 Thomas 09:00: [id number] 00 Safety risk for Safety Resolve 2018-08-28 Jennifer Baum hospitaliza d 08-14 09:00:00 Thomas tion 09:00: [id number] 00 Medication oral med Meds Resolve 2018-08-14 Catia assistance d 08-14 09:00:00 [place] required 09:00: 00 Cardio pacemaker/I Cardiovasc Resolve 2018-2018-08-28 Catia blackar d 08-21 09:00:00 [place] 09:00: 00 Medication oral med Meds Resolve 2018-2018-08-28 Catia assistance d 7 09:00:00 [place] required 09:00: 00 Elimination nausea/vomi Eliminatio Resolve 2018-09-04 Catia bass n d 08-28 09:45:00 [place] 09:00: 00 Safety risk for Safety [facility] 09:45: [id number] 00 Cardio pacemaker/I Cardiovasc Resolve 2018-09-11 Catia [...] Vonnie wilhelm d 09-18 10:20:00 [place] 10:00: [id number] 00 Safety risk for Safety Resolve 2018-09-18 Vonnie hospitaliza d 09-18 10:00:00 [place] tion 10:00: [id number] 00 Cardio chest pain Cardiovasc Resolve 2018-09-25 Vonnierea wilhelm d 09-25 10:10:00 [place] 10:10: [id number] 00 Cardio knowledge/s Cardiovasc Resolve 2018-09-25 Vonnie chance wilhelm d 09-25 10:10:00 [place] deficit: cg 10:10: [id number] 00 Neuro memory Neuro/Emot Resolve 2018-10-23 Vonnie deficit ion d 09-25 09:00:00 [place] needing 10:10: [id number] supervision 00 Safety risk for Safety Resolve 2018-09-25 Vonnie hospitaliza d 09-25 10:10:00 [place] tion 10:10: [id number] 00 Neuro depressive Neuro/Emot Resolve 2018-10-23 Catia feelings ion d 10-02 09:00:00 [place] present 09:00: 00 Safety risk for Safety Resolve 2018 Catia hospitaliza d 10-02 09:00:00 [place] tion 09:00: 00 Safety risk for Safety Resolve 2018-10-09 Vonnie hospitaliza d 10-06 10:20:00 [place] tion 11:40: [id number] 00 Elimination nausea/vomi Eliminatio Resolve 2018-10-16 Catia [...] FEDE: Active [facility] kill Social 10-28 [facility] deficit - Services 16:15: [id number] pt 00 Cardio pacemaker/I Cardiovasc Resolve 2018-10-30 [...] 2018-02 Roslyn hospitaliza 02-21 [place] tion 10:15: [id number] 00 Safety sanitation Safety Resolve 2018-022018-12-30 Janet hazards d 1-05 10:00:00 Chaudhari present 15:10: [id number] 00 Safety fall risk Safety Resolve 2018-022018-12-24 Janet factor d 105 09:00:00 Chaudhari present 15:10: [id number] 00 Respiratory oxygen Respirator Resolve 2018-022018-12-30 Catia [...] restriction d 03-13 08:00:00 [place] s 15:30: [id number] 00 Respiratory oxygen Respirator Resolve 2018-022019-01-15 Catia [...] 09:00: 00 Respiratory oxygen Respirator Resolve 2018-022019-02-03 Ctaia treatments y d 2-18 11:55:00 [place] in [...] 2018-02 Roslyn restriction 2-20 [place] s 10:15: [id number] 00 Cardio pacemaker/I Cardiovasc Resolve 2018-022019-02-19 Catia [...] 2017-05 Massiel Unknown -11 (Maria G) Shaun [id number] IVP DYE Unknown Active Unknown Reaction 2017-05 Massiel Unknown -11 (Maria G) Shaun [id number] Medications Ordered Filled Start Stop Current Ordering [...] Unknown Unknown 500 mg 500 mg 05-06 Earsmo ANDERSON capsule capsule triamcinolo triamcinolo 2018- No [...] Unknown Unknown mcg/actuati mcg/actuati 06-25 ,[place] Cipro 500 Cipro 500 2018- No [...]
--- OUTSIDE RECORDS SUMMARY | 2019-05-13 12:16 | XMS REPORT | Continuity of Care Document ---
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 [...] GLU:[id number] MARRUFO at: 15:59:30 by:[id number] Read back by:DR MARRUFO 3 Because ethnic [...] Dx Diagnosis Office Visit 01/27/2019 [facility] Kishor Purvis70.31 Alcoholic 11:00a Associates Latha Marrufo MD cirrhosis of liver with ascites K74.69 Other cirrhosis of liver Office Visit 10/08/2018 Gastroenterology Kishor [place] K74.69 Other 3:45p Jessica Marrufo MD cirrhosis of liver Assessments Date Code Description Provider 03/31/2019 K70.31 Alcoholic cirrhosis of liver with ascites Kishor Marrufo MD 01/27/2019 K70.31 Alcoholic cirrhosis of liver with ascites Kishor Marrufo MD 01/27/2019 K74.69 Other cirrhosis of liver Kishor Marrufo MD 10/08/2018 K74.69 Other cirrhosis of liver Kishor Marrufo MD Plan of Treatment Future Appointment(s):04/26/2019 12:00 pm - Kishor [facility]fo [facility] at [facility]03/31/2019 - Kishor Marrufo MDK70.31 Alcoholic cirrhosis of liver with ascitesNew Orders:EGD, Ordered: 03/31/19 Functional Status Description No Information Available Mental Status Description No Information Available Referrals Description No Information Available
--- OUTSIDE RECORDS SUMMARY | 2019-05-13 12:17 | XMS REPORT ---
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 Catia (current) (current) [place] use of use of anticoagula anticoagula nts nts MCC MCC Diagnosis Active Ctaia (current) (current) [place] use of use of [...] supervision 00 Neuro knowledge/s Neuro/Emot Resolve 2018-2018-02-25 Actia kill ion d 1-03 11:25:00 [place] deficit: [...] [place] deficit: cg 11:00: 00 Balance/End balance/cook frozen dessert PT/OT: Resolve 2018-12-29 Catia yousif rdination Balance/En [...] 02-25 17:15:00 [place] sigala device ransfer 14:50: [id number] present 00 Bed transfer PT/OT: Bed Resolve 2018-12-29 Deejay Mobility/Tr deficit: Mobility/T d 02-25 17:15:00 [place] sigala toilet/comm ransfer 14:50: [id number] 00 Bed transfer PT/OT: Bed Resolve 2018-12-29 Deejay Mobility/Tr deficit: Mobility/T d 02-25 17:15:00 [place] sigala shower/tub ransfer 14:50: [id number] 00 Bed knowledge/s PT/OT: Bed Resolve 2018-12-29 Deejay Mobility/Tr kill Mobility/T d 02-25 17:15:00 [place] sigala deficit: pt ransfer 14:50: [id number] 00 Balance/End knowledge/s PT/OT: Resolve 2018-12-29 Deejay yousif kill Balance/En d 02-25 17:15:00 [place] deficit: pt durance 14:50: [id number] 00 Environment knowledge/s PT/OT: Resolve 2018-12-29 Deejay hennessy kill Environmen d 02-25 17:15:00 [place] deficit: pt t 14:50: [id number] 00 Environment environment PT/OT: Resolve 2018-12-29 Deejay hennessy al barriers Environmen d 02-25 17:15:00 [place] t 14:50: [id number] 00 Gait/Locomo gait PT/OT: Resolve 2018-12-29 Deejay tisimran assistive Gait/Locom d 02-25 17:15:00 Garibay problems device otion 14:50: [id number] present 00 Gait/Locomo knowledge/s PT/OT: Resolve 2018-12-29 Deejay ocampo kill Gait/Locom d 02-25 17:15:00 Garibay problems deficit: pt otion 14:50: [id number] 00 Cardio edema Cardiovasc Resolve 2018-05-27 Catia [...] d 2- 10:00:00 [place] deficit: pt 09:50: [id number] 00 Cardio knowledge/s Cardiovasc Resolve 2018-05-27 Vonnie kill ular d 2 10:00:00 [place] deficit: cg 09:50: [id number] 00 Respiratory lung sounds Respirator Resolve 2018-04-17 Vonnie deficit y d 2 09:00:00 [place] 09:50: [id number] 00 Medication oral med Meds Resolve 2018-04-24 [...] d 4- 09:00:00 [place] deficit: pt 10:00: [id number] 00 Social knowledge/s FEDE: Resolve 2018-2018-05-21 [facility] kill Social d 4- 10:00:00 [place] deficit - Services 10:00: [id number] pt 00 Social knowledge/s FEDE: Resolve 2018-2018-05-21 [facility] kill Social d 4- 10:00:00 [place] deficit - Services 10:00: [id number] cg 00 24 Hr Diet nutrition NT: 24Hr Active Silvana intake Diet 05-22 [place] deficit 09:50: [id number] 00 24 Hr Diet knowledge/s NT: 24Hr Resolve 2018-05-22 Silvana kill Diet d 05-22 09:50:00 [place] deficit - 09:50: [id number] pt 00 Nutritional food NT: Resolve 2018-05-22 Silvaan Barrier storage/pre Barriers d 05-22 09:50:00 [place] p deficit 09:50: [id number] Respiratory lung sounds Respirator Resolve 2018-05-27 Vonnie deficit y d 05-25 10:00:00 [place] 09:10: [id number] 00 Respiratory nebulizer Respirator Resolve 2018-05-27 Vonnie treatment y d 05-25 10:00:00 [place] in home 09:10: [id number] 00 Neuro impaired Neuro/Emot Resolve 2018-06-19 Catia toscano-ma ion d 05-27 09:00:00 Shermna addison 10:00: 00 Test/Treatm tests Test/Injec Resolve 2018-06-09 Vonnie ent ordered t/Chele d 05-28 09:05:00 [place] [id number] Cardio knowledge/s Cardiovasc Resolve 2018-06-06 Catia blackar [...] present y d 4-15 09:00:00 [place] 09:00: [id number] 00 Respiratory oxygen Respirator Resolve 2018-06-10 Vonnie treatments y d 4-15 09:00:00 [place] in home 09:00: [id number] 00 Respiratory lung sounds Respirator Resolve 2018-06-06 Vonnie deficit y d 4-15 12:00:00 [place] 09:00: [id number] 00 Endo/Viktor diabetic Endo/Viktor Resolve 2018-06-06 Catia [...] d 06-08 09:00:00 [place] deficit: pt 10:35: [id number] 00 24 Hr Diet nutrition NT: 24Hr Unknown Silvana intake Diet 06-08 [place] deficit 10:40: [id number] 00 24 Hr Diet knowledge/s NT: 24Hr Resolve 2018-06-08 Silvana kill Diet d 06-08 10:40:00 [place] deficit - 10:40: [id number] pt 00 Respiratory lung sounds Respirator Resolve 2018-06-10 Vonnie deficit y d 06-09 09:00:00 [place] 09:05: [id number] 00 Musculoskel requires Musculoske Resolve 2018-06-10 Vonnie etal human letal d 06-09 09:00:00 [place] assist to 09:05: [id number] leave home 00 Cardio edema Cardiovasc Resolve [...] d 06-11 10:20:00 [place] deficit: cg 10:00: [id number] 00 Nutrition changing Nutrition Resolve 2018-06-26 Catia weight/appe d 06-12 08:30:00 [place] tite 10:20: 00 Nutrition knowledge/s Nutrition Resolve 2018-06-12 Catia kill d 06-12 10:20:00 [place] deficit: pt 10:20: 00 Cardio edema Cardiovasc Resolve 2018-06-17 Vonnierea wilhelm d 06-15 09:00:00 [place] 09:15: [id number] 00 Cardio pacemaker/I Cardiovasc Resolve 2018-06-17 Vonnierea CINTRON ular d 06-15 09:00:00 [place] 09:15: [id number] 00 Respiratory dyspnea Respirator Resolve 2018-06-17 Vonnie present y d 06-15 09:00:00 [place] 09:15: [id number] 00 Respiratory oxygen Respirator Resolve 2018-06-19 Vonnie treatments y d 06-15 09:00:00 [place] in home 09:15: [id number] 00 Respiratory lung sounds Respirator Resolve 2018-06-17 Vonnie deficit y d 06-15 09:00:00 [place] 09:15: [id number] 00 Nutrition knowledge/s Nutrition Resolve 2018-06-17 Vonnie kill d 06-15 09:00:00 [place] deficit: pt 09:15: [id number] 00 Sensory impaired Sensory Resolve 2018-06-22 Catia [...] NT: 24Hr Unknown Silvana intake Diet 5- [place] deficit 15:30: [id number] 00 24 Hr Diet knowledge/s NT: 24Hr Resolve 2018-06-18 Silvana kill Diet d 5- 15:30:00 [place] deficit - 15:30: [id number] pt 00 Nutrition knowledge/s Nutrition Resolve 2018-06-19 Catia kill d 06-19 09:00:00 [place] deficit: pt 09:00: 00 Safety can be left Safety Resolve 2018-06-26 Catia alone for d 06-19 08:30:00 [place] only short 09:00: periods 00 Medication oral med Meds Resolve 2018-06-19 Catia assistance d 06-19 09:00:00 [place] required 09:00: 00 Cardio edema Cardiovasc Resolve 2018-06-26 Vonnie wilhelm d 06-22 08:30:00 [place] 09:15: [id number] 00 Cardio knowledge/s Cardiovasc Resolve 2018-07-24 Vonnieajith fletcher ular d 06-22 09:00:00 [place] deficit: pt 09:15: [id number] 00 Cardio pacemaker/I Cardiovasc Resolve 2018-06-26 Vonnierea CINTRON ular d 06-22 08:30:00 [place] 09:15: [id number] 00 Nutrition knowledge/s Nutrition Resolve 2018-06-24 Vonnie kill d 06-22 11:00:00 [place] deficit: pt 09:15: [id number] 00 Nutrition knowledge/s Nutrition Resolve 2018-06-24 Vonnie kill d 06-22 11:00:00 [place] deficit: cg 09:15: [id number] 00 Neuro impaired Neuro/Emot Resolve 2018-06-26 Vonnie decision-ma ion d 06-22 08:30:00 [place] addison 09:15: [id number] 00 Neuro knowledge/s Neuro/Emot Resolve 2018-06-22 Vonnie kill ion d 06-22 09:15:00 [place] deficit: pt 09:15: [id number] 00 Neuro knowledge/s Neuro/Emot Resolve 2018-06-24 Vonnie kill ion d 06-23 11:00:00 [place] deficit: pt 09:30: [id number] 00 Social financial FEDE: Active [facility] resource Social 06-23 [place] deficit Services 09:45: [id number] 00 Social knowledge/s FEDE: Resolve 2018-06-23 [facility] kill Social d 06-23 09:45:[facility] 09[facility]: [id number] pt 00 Respiratory oxygen Respirator Resolve 2018-06-26 [...] Vonnie wilhelm d 5-13 16:00:00 [place] 09:30: [id number] 00 Respiratory oxygen Respirator Resolve 2018-07-08 Vonnierea sánchez y d 5-13 16:00:00 [place] in home 09:30: [id number] 00 Nutrition knowledge/s Nutrition Resolve 2018-07-01 Vonnie fletcher d 5-13 10:00:00 [place] deficit: pt 09:30: [id number] 00 Cardio chest pain Cardiovasc Resolve 2018-07-08 Catia wilhelm d 5-15 16:00:00 [place] 10:00: 00 Cardio pacemaker/I Cardiovasc Resolve 2018-07-08 Catia wilhelm d -15 16:00:00 [place] 10:00: 00 Social knowledge/s FEDE: Resolve 2018-07-08 Catia Joy kill Social d 5-15 11:00:00 [place] deficit - Services 10:00: pt 00 Nutrition knowledge/s Nutrition Resolve 2018-07-08 Vonnie fletcher d -20 16:00:00 [place] deficit: pt 09:15: [id number] 00 Safety structural Safety Resolve 2018-07-23 Roslyn barriers d 07-08 11:15:00 [place] present 11:00: [id number] 00 Safety sanitation Safety Resolve 2018-07-23 Roslyn hazards d 07-08 11:15:00 [place] present 11:00: [id number] 00 Safety can be left Safety Resolve 2018-07-23 Roslyn alone for d 07-08 11:15:00 [place] only short 11:00: [id number] periods 00 Neuro impaired Neuro/Emot Active Catia antunez 07-08 [place] jaime 16:00: 00 Medication oral med Meds Resolve 2018-07-10 Catia assistance d 07-08 09:08:00 [place] required 16:00: 00 Medication injectable Meds Unknown Catia med 07-08 [place] assistance 16:00: required 00 Cardio edema Cardiovasc Resolve 2018-07-23 Vonnie ular d 07-10 11:15:00 [place] 09:08: [id number] 00 Cardio pacemaker/I Cardiovasc Resolve 2018-07-23 Vonnie CD ular d 07-10 11:15:00 [place] 09:08: [id number] 00 Respiratory oxygen Respirator Resolve 2018-08-14 Vonnie treatments y d 07-10 09:00:00 [place] in home 09:08: [id number] 00 Respiratory lung sounds Respirator Resolve 2018-07-24 Vonnie deficit y d 07-10 09:00:00 [place] 09:08: [id number] 00 Nutrition knowledge/s Nutrition Resolve 2018-07-23 Vonnie kill d 07-10 11:15:00 [place] deficit: pt 09:08: [id number] 00 Neuro knowledge/s Neuro/Emot Resolve 2018-07-23 Vonnie kill ion d 07-10 11:15:00 [place] deficit: pt 09:08: [id number] 00 Social knowledge/s FEDE: Resolve 2018-09-29 Von[facility] Services kill Social d 07-10 10:00:00 [place] deficit - Services 09:08: [id number] pt 00 Neuro memory Neuro/Emot Resolve 2018-07-23 Vonnie deficit ion d 07-14 11:15:00 [place] needing 09:18: [id number] supervision 00 Pain frequent Pain Mgmt Active Vonnie pain 07-17 [place] 09:40: [id number] 00 Nutrition knowledge/s Nutrition Resolve 2018-07-23 Vonnie kill d 07-17 11:15:00 [place] deficit: cg 09:40: [id number] 00 Medication injectable Meds Unknown Vonnie med 07-17 [place] assistance 09:40: [id number] required 00 Respiratory bloody Respirator Resolve 2018-2018-07-27 Vonnie sputum y d 6 09:00:00 [place] 09:07: [id number] 00 Respiratory dyspnea Respirator Resolve 2018-07-27 Catia [...] d 6-10 09:00:00 [place] deficit: pt 09:00: [id number] 00 Nutrition nutritional Nutrition Resolve 2018-2018-07-31 Vonnie restriction d 6-10 09:00:00 [place] s 09:00: [id number] 00 Cardio pacemaker/I Cardiovasc Resolve 2018-2018-07-31 Catia CINTRON ular d 6-14 09:00:00 [place] 09:00: 00 Respiratory CPAP Respirator Resolve 2018-07-31 Catia treatments y d 6-14 09:00:00 [place] in home 09:00: 00 Medication oral med Meds Resolve 2018-08-03 Catia assistance d 6-14 09:00:00 [place] required 09:00: 00 Nutrition knowledge/s Nutrition Unknown Roslyn kill 6-14 [place] deficit: pt 10:00: [id number] 00 Nutrition knowledge/s Nutrition Resolve 2018-08-07 Roslyn kill d 6-14 10:00:00 [place] deficit: cg 10:00: [id number] 00 Nutrition nutritional Nutrition Unknown Roslyn restriction 6-14 [place] s 10:00: [id number] 00 Safety can be left Safety Resolve 2018-08-07 Roslyn alone for d 6-14 10:00:00 [place] only short 10:00: [id number] periods 00 Nutrition knowledge/s Nutrition Unknown Catia kill 6-14 [place] deficit: pt 10:30: 00 Nutrition nutritional Nutrition Unknown Catia restriction 6-14 [place] s 10:30: 00 Respiratory CPAP Respirator Resolve 2018-08-07 Vonnie treatments y d 6-17 10:00:00 [place] in home 09:00: [id number] 00 Nutrition knowledge/s Nutrition Resolve 2018-08-07 Vonnie kill d 6-17 10:00:00 [place] deficit: pt 09:00: [id number] 00 Nutrition nutritional Nutrition Resolve 2018-08-07 Vonnie restriction d 6-17 10:00:00 [place] s 09:00: [id number] 00 Cardio pacemaker/I Cardiovasc Resolve 2018-08-10 Catia [...] factor d 08-14 09:00:00 Thomas present 09:00: [id number] 00 Safety fire risk Safety Resolve 2018-08-28 Jennifer Baum present d 08-14 09:00:00 Thomas 09:00: [id number] 00 Safety risk for Safety Resolve 2018-08-28 Jennifer Baum hospitaliza d 08-14 09:00:00 Thomas tion 09:00: [id number] 00 Medication oral med Meds Resolve 2018-08-14 Catia assistance d 08-14 09:00:00 [place] required 09:00: 00 Cardio pacemaker/I Cardiovasc Resolve 2018-2018-08-28 Catia blackar d 08-21 09:00:00 [place] 09:00: 00 Medication oral med Meds Resolve 2018-2018-08-28 Catia assistance d 7 09:00:00 [place] required 09:00: 00 Elimination nausea/vomi Eliminatio Resolve 2018-09-04 Catia bass n d 08-28 09:45:00 [place] 09:00: 00 Safety risk for Safety [facility] 09:45: [id number] 00 Cardio pacemaker/I Cardiovasc Resolve 2018-09-11 Catia [...] Vonnie wilhelm d 09-18 10:20:00 [place] 10:00: [id number] 00 Safety risk for Safety Resolve 2018-09-18 Vonnie hospitaliza d 09-18 10:00:00 [place] tion 10:00: [id number] 00 Cardio chest pain Cardiovasc Resolve 2018-09-25 Vonnierea wilhelm d 09-25 10:10:00 [place] 10:10: [id number] 00 Cardio knowledge/s Cardiovasc Resolve 2018-09-25 Vonnie chance wilhelm d 09-25 10:10:00 [place] deficit: cg 10:10: [id number] 00 Neuro memory Neuro/Emot Resolve 2018-10-23 Vonnie deficit ion d 09-25 09:00:00 [place] needing 10:10: [id number] supervision 00 Safety risk for Safety Resolve 2018-09-25 Vonnie hospitaliza d 09-25 10:10:00 [place] tion 10:10: [id number] 00 Neuro depressive Neuro/Emot Resolve 2018-10-23 Catia feelings ion d 10-02 09:00:00 [place] present 09:00: 00 Safety risk for Safety Resolve 2018 Catia hospitaliza d 10-02 09:00:00 [place] tion 09:00: 00 Safety risk for Safety Resolve 2018-10-09 Vonnie hospitaliza d 10-06 10:20:00 [place] tion 11:40: [id number] 00 Elimination nausea/vomi Eliminatio Resolve 2018-10-16 Catia [...] FEDE: Active [facility] kill Social 10-28 [facility] deficit - Services 16:15: [id number] pt 00 Cardio pacemaker/I Cardiovasc Resolve 2018-10-30 [...] 09:00: 00 Respiratory oxygen Respirator Resolve 2018-022018-11-27 Actia treatments y d 0-11 09:00:00 [place] in [...] 2018-02 Roslyn hospitaliza 02-21 [place] tion 10:15: [id number] 00 Safety sanitation Safety Resolve 2018-022018-12-30 Janet hazards d 1-05 10:00:00 Chaudhari present 15:10: [id number] 00 Safety fall risk Safety Resolve 2018-022018-12-24 Janet factor d 105 09:00:00 Chaudhari present 15:10: [id number] 00 Respiratory oxygen Respirator Resolve 2018-022018-12-30 Catia [...] restriction d 03-13 08:00:00 [place] s 15:30: [id number] 00 Respiratory oxygen Respirator Resolve 2018-022019-01-15 Catia [...] 2018-02 Roslyn restriction 2-20 [place] s 10:15: [id number] 00 Cardio pacemaker/I Cardiovasc Resolve 2018-022019-02-19 Catia [...] 2017-05 Massiel Unknown -11 (Maria G) Shaun [id number] IVP DYE Unknown Active Unknown Reaction 2017-05 Massiel Unknown -11 (Maria G) Shaun [id number] Medications Ordered Filled Start Stop Current Ordering [...] Unknown Unknown mcg/actuati mcg/actuati 06-25 MD,Qutaybe on Cuddy on Cuddy h Cipro 500 Cipro 500 2018- No [...] Observation Time Observation Value Comments SYSTOLIC mm[Hg] 2019-03-26 18:10:16 135 mm[Hg] mm[Hg] Method: Sit SYSTOLIC mm[Hg] 2019-02-12 18:09:34 140 mm[Hg] mm[Hg] Method: Stand DIASTOLIC mm[Hg] 2019-03-26 18:10:16 70 mm[Hg] mm[Hg] Method: Sit DIASTOLIC mm[Hg] 2019-02-12 18:09:34 80 mm[Hg] mm[Hg] Method: Stand PULSE 2019-03-26 18:10:16 76 /min /min RESP RATE 2019-03-26 18:10:16 16 /min /min TEMP 2019-03-26 18:10:16 97.2 [degF] Procedures This patient has no known procedures. Results This patient has no known results.
[2019-05-13 12:25] LABS: ABS Basophils 0.1 10^3/ul (0-0.2); ABS Eosinophils 0.2 10^3/ul (0-0.6); ABS Lymphocytes 1.3 10^3/ul (1.0-4.8); ABS Monocytes 0.7 10^3/ul (0-0.8); ABS Neutrophils 6.4 10^3/ul (1.5-7.7); Eosinophil % 2.2 %; Hematocrit 36 % (42-52); Hemoglobin 12.6 g/dL (14.0-18.0); Lymphocyte % 14.5 %; Mean Corpuscular HGB Conc 35 g/dL (31-36); Mean Corpuscular Hemoglobin 26 pg (27-31); Mean Corpuscular Volume 74 fL (80-94); Mean Platelet Volume 8.7 fL (7.4-10.4); Nucleated Red Blood Cells % 0.1; Platelet Count 152 10^3/uL (150-450); Red Blood Count 4.83 10^6 /uL (4.18-5.48); Red Cell Distribution Width 15 % (10-15); White Blood Count 8.7 10^3/uL (3.5-10.8)
[2019-05-13 12:32] LABS: INR 1.31 (0.82-1.09)
[2019-05-13 12:38] LABS: ALT 17 U/L (7-52); AST 16 U/L (13-39); Albumin 4.2 g/dL (3.2-5.2); Albumin/Globulin Ratio 1.4 (1-3); Alkaline Phosphatase 105 U/L (34-104); Anion Gap 11 mmol/L (2-11); BUN/Creatinine Ratio 31.1 (8-20); Blood Urea Nitrogen 57 mg/dL (6-24); CO2 Carbon Dioxide 31 mmol/L (22-32); Calcium 9.2 mg/dL (8.6-10.3); Chloride 92 mmol/L (101-111); EGFR African American 46.2 (>60); EGFR Non-African American 38.2 (>60); Glucose 281 mg/dL (70-100); Influenza A Molecular Negative (Negative); Influenza B Molecular Negative (Negative); Magnesium 1.5 mg/dL (1.9-2.7); Potassium 3.6 mmol/L (3.5-5.0); Sodium 134 mmol/L (135-145); Total Protein 7.2 g/dL (6.4-8.9)
[2019-05-13] MEDS ORDERED: Magnesium Sulfate 2 GM IV* 2 GM/50 ML BAG IVPB ONE (12:40)
[2019-05-13 12:41] LABS: Troponin I 0.01 ng/mL (<0.03)
[2019-05-13] MEDS ORDERED: Nitroglycerin 0.2 MG/HR PATCH* (5 MG) TRANSDERM ONE (15:08)
[2019-05-13] MEDS ORDERED: Metoprolol Tartrate IV* 1 MG/ML 5 ML VIAL IV ONE (15:08)
[2019-05-13] MEDS ORDERED: Docusate CAP* 100 MG PO PRN (15:26)
[2019-05-13] MEDS ORDERED: Al Hydrox/Mg Hydrox/Simet LIQ* 30 ML UDC PO PRN (15:26)
[2019-05-13] MEDS ORDERED: Nitroglycerin TAB 0.4 MG* 0.4 MG TAB SL PRN (15:26)
[2019-05-13] MEDS ORDERED: Albuterol HFA INHALER* 8 gm MDI INH PRN (15:26)
[2019-05-13] MEDS ORDERED: Magnesium Sulf 4 GM/100 ML IV* 4,000 MG/100 ML BAG IVPB ONE (15:44)
[2019-05-13] MEDS ORDERED: Potassium Chloride* LIQUID 20 MEQ/15 ML UDC PO ONE (15:48)
[2019-05-13] MEDS ORDERED: Acetaminophen TAB* 325 MG PO PRN (16:00)
[2019-05-13 16:08] LABS: C Reactive Protein 2.17 mg/L (<8.01)
[2019-05-13] MEDS ORDERED: Dextrose 50% Syringe 50 ML* 25 GM/50 ML SYRINGE IV PUSH PRN (16:27)
[2019-05-13 16:35] LABS: % Iron Saturation 12 % (15-55); Iron 40 ug/dL (50-212); Total Iron Binding Capacity 337 mcg/dL (250-450); Transferrin 241 mg/dL (203-362)
[2019-05-13 16:55] LABS: Ferritin 26.9 ng/mL (24-336)
--- NOTE | 2019-05-13 17:12 | CONS ---
CC: Dr. German; Dr. Hill * CARDIOLOGY CONSULTATION: DATE OF CONSULT: 05/13/19 REASON FOR EVALUATION: Chest pain, stated defibrillator shock. HISTORY OF PRESENT ILLNESS: This is a very pleasant 58-year-old gentleman with history of ischemic cardiomyopathy, diabetes, hyperlipidemia. He reports he was in his normal state of health until Friday, he said he was sitting in a chair and developed some chest pain which waxed and waned over the course of an hour. He took nitro, had some relief and it would recur. He took another nitroglycerin. At some point, he felt a funny sensation in his chest and thought he had a defibrillator shock. He said he thought his heart was going fast and he was lightheaded and then got a defibrillator shock. He said that happened twice on Friday night. He did well on Friday and Friday. He said he has been usually able to walk for half hour to an hour without a problem and did that the week before and after Friday; however, today he had 3 similar episodes of chest pain, partially relieved with nitroglycerin and then recurring palpitations, lightheadedness, and defibrillator shocks. Because of those symptoms, he came to the emergency room. He also reports that he has had a cough occasionally productive of yellow sputum since Friday. He denies any fever, chills, sweats, orthopnea, or peripheral edema. He also denies any COVID exposures. He said he has been in his house for most of the last 2 weeks and just went out to get food a couple times. Of note, his defibrillator was interrogated and it revealed no defibrillator therapy since it was last evaluated on 04/27/19. He did have a brief nonsustained VT, which did not meet criteria for therapy and that occurred on 04/29/19 at 2158. He had a stress test in July of 2018, which revealed no evidence of ischemia or infarct, mildly reduced LV function. Echo from April of 2018 revealed mild concentric LVH, EF of 50% to 55%, paradoxical wall motion consistent with RV pacemaker, trace to mild MR, mild TR, [id number] pulmonary hypertension. He was noted in March to have a microcytic anemia, hematocrit of 38, MCV of 76. PAST MEDICAL HISTORY: Includes diabetes, nonsustained VT which had been reported on his ICD, arrhythmia, sleep apnea, coronary artery disease, automated implantable defibrillator, hyperlipidemia, hypertension. He did have a cardiac catheterization in December of 2005. At that time, he had reduction of an 80% lesion in the mid circumflex with a 2.5 x 12 mm Synergy stent, distal LAD reduction of 75% to 80% lesion with stenting with a 2.5 x 12 mm Synergy stent, and mid LAD had 85% lesion that was treated. He has atrial fibrillation chronically. PAST SURGICAL HISTORY: Includes ruptured appendix, carotid stenting. MEDICATIONS: Include: 1. Torsemide 20 mg 3 a day. 2. Aspirin 81 mg a day. 3. Atorvastatin 80 mg a day. 4. Cetirizine 10 mg a day. 5. Colace 100 mg q.12 hours. 6. Diltiazem 30 mg 1 by mouth twice a day. 7. Ferrous sulfate 1 daily. 8. Glimepiride 2 tablets daily. 9. Janumet one twice a day. 10. Lactulose 30 mL b.i.d. 11. Magnesium 400 mg 1 by mouth 3 times daily. 12. Metolazone 2.5 mg Friday, Friday, and Friday 30 minutes before torsemide. 13. Metoprolol succinate 25 mg daily. 14. Omeprazole 20 mg a day. 15. Symbicort 160/4.5 mcg 2 puffs twice a day. 16. Xarelto 20 mg a day. ALLERGIES: Include CONTRAST DYE, SHELLFISH, and TRAZODONE. FAMILY HISTORY: Includes father with sleep apnea, hypertension, diabetes. Mother in a car accident. Five brothers and 5 sisters, no cardiac issues as far as he knows. SOCIAL HISTORY: He drinks 2 cups of caffeinated coffee a day. He denies tobacco use or alcohol use. He is single, never . 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 REVIEW OF SYSTEMS: Review of systems x10 was negative except as above. PHYSICAL EXAM: He is a well-developed, well-nourished, overweight gentleman, in no apparent distress, appearing somewhat anxious. Blood pressure 130/75, pulse of 73. He had no JVD. Carotids 2+ without bruits. No cervical adenopathy or thyromegaly. Extraocular muscles intact. Sclerae anicteric. Chest was clear. No CVAT. Abdominal Exam: Obese. Bowel sounds present. Healed surgical scar in the right lower quadrant. Femoral pulses intact without bruits. Distal pulses intact. No edema. Motor strength 5/5 bilaterally. Deep tendon reflexes 2/4. Alert and oriented x3. DIAGNOSTIC STUDIES/LAB DATA: Troponin was 0.01. BUN 57, creatinine of 1.83, potassium of 3.6. MCV of 74, hematocrit of 36. Influenza A and B were negative. His EKG revealed AFib with left axis deviation, poor R-wave progression, possible anteroseptal AZ, and nonspecific ST-T changes. The anterior T-wave changes are new comparing to the previous. Chest x-ray: Cardiomegaly. No acute changes. IMPRESSION AND PLAN: My impression is that Mr. Pratt has chest pain, productive cough, and reported defibrillator discharge, although pacemaker reveals no indication that he got therapy. He did have 1 brief episode of nonsustained ventricular tachycardia several weeks ago and before that had documented nonsustained ventricular tachycardia. The etiology of his symptoms is unclear. This could be pulmonary, musculoskeletal, or ischemic. For the time being, I have recommended the followin. I would suggest maintaining his potassium over 4 and replacing his magnesium as you are doing. Magnesium was initially 1.5. 2. Recheck iron, iron binding and replace his iron as needed. 3. We would increase his beta-krysta as tolerated as an antianginal. 4. We would add nitro patch 0.4 mg on in the morning, off in the evening. 5. We would rule out for myocardial infarction as you are doing. 6. COVID-19 evaluation is pending. It would be desirable to get stress testing at some point; however, if he rules out and is asymptomatic on medicines , I think this should be deferred until after his pulmonary status has recovered and been identified. 7. Also, given his renal insufficiency and CONTRAST allergy, he would be at high risk for cardiac catheterization, so I would like to defer that. I think he can be managed medically. 8. We would continue aspirin and lipid lowering. 9. We would consider a GI evaluation for his microcytic anemia if not already done. 10. Further recommendations will depend on his clinical course. 11. will consider obtaining an echo to confirm stability of his LV function. 12. will repeat iron studies to confirm correction of his deficiency; if not, will consider iv supplementation. [id number]/[facility] #: [id number] [facility]
--- NOTE | 2019-05-13 18:02 | HP ---
CC: Dr. Hill; Dr. Kelley; Dr. German; Dr. Fowler, GI * HISTORY AND PHYSICAL: DATE OF ADMISSION: 05/13/19 PRIMARY CARE PROVIDER: Dr. Hill. CHIEF COMPLAINT: Cough and chest pain. HISTORY OF PRESENT ILLNESS: Mr. Pratt is a 58-year-old male with history of alcoholic liver disease with cirrhosis, who also had cardiomyopathy and chronic systolic CHF with EF in the past to be noted in the 30s and for that he had an ICD placement. Currently, his EF is noted to be closer to 50% to 55%. He is under the care of Dr. German for Cardiology. The patient presented complaining of "defibrillator shock." He stated that he had sharp pulling-like pain around the area where his ICD is implanted, associated with cough. He denies shortness of breath. The pain lasted approximately an hour and it was present yesterday and the day prior. He had no diaphoresis with that and no substernal chest pain. He also noted that he has point tenderness in the area of the defibrillator spot. When he presented to the ED, it was decided that the patient is going to be COVID rule out, and COVID PCR test was initiated. He was seen by Dr. Kelley from Cardiology, who initially recommended cardiac stress test in the morning, but due to the patient's COVID precautions, it is not feasible to perform the stress test. The decision was made for the patient to be observed overnight to be ruled out with troponins and likely to be discharged home tomorrow. The patient stated that he had been coughing for the past 2 days with occasionally clear and occasionally yellow sputum production. Please note that he had an upper endoscopy performed by Dr. Fowler for microcytic anemia on 11/06 which basically did not show any source of his anemia and no esophageal varices. PAST MEDICAL HISTORY: 1. Chronic systolic CHF with EF of 50% to 55% documented in 2019. 2. Iron-deficiency anemia. 3. Chronic kidney disease, stage 3 due to diabetes. 4. Diabetes type 2. 5. COPD. The patient had been on oxygen in the past. 6. Obstructive sleep apnea, on CPAP. 7. Atrial fibrillation, chronic, rate controlled. 8. 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 9. Pulmonary hypertension. 10. History of alcohol abuse, in remission. 11. Coronary artery disease, status post stenting 3 times in the past. 12. History of ventricular tachycardia, status post ICD placement. 13. History of nonsustained SVT in the past. MEDICATIONS AT HOME: Include: 1. Glimepiride 4 mg daily. 2. Xarelto 20 mg daily. 3. Ferrous sulfate 325 mg daily. 4. Torsemide 60 mg daily. 5. Mometasone 0.1% cream b.i.d. p.r.n. 6. Nasonex nasal spray 1 spray both nostrils daily. 7. Colace 100 mg b.i.d. p.r.n. 8. Zinc paste topical b.i.d. 9. Mag-Ox 400 mg 3 times a day. 10. Lactulose 30 mL b.i.d. 11. Albuterol inhaler on a p.r.n. basis. 12. Nitroglycerin on a p.r.n. basis sublingually. 13. Acetaminophen 1000 mg every 12 hours for pain. 14. Maalox 30 mL every 6 hours p.r.n. 15. Omeprazole 20 mg daily. 16. Zaroxolyn 2.5 mg Mondays, Wednesdays, and Fridays. 17. Thiamine 100 mg daily. 18. Symbicort 160/4.5 two puffs inhalation b.i.d. 19. Janumet one tablet b.i.d. 20. Zyrtec 10 mg daily. 21. Toprol-XL 25 mg daily. 22. Cardizem 30 mg b.i.d. 23. Lipitor 80 mg daily. 24. Aspirin 81 mg daily. ALLERGIES: IODINE and SHELLFISH. FAMILY HISTORY: His mother from chronic kidney disease and heart disease. SOCIAL HISTORY: The patient lives alone. He quit smoking approximately 15 years ago. He denies any recent alcohol use, but he has history of alcoholism in the past. As his surrogate, he names his father. He denies any drug use. REVIEW OF SYSTEMS: Please see history of present illness. All the remaining 12 systems were reviewed with the patient and were otherwise negative. PHYSICAL EXAMINATION GENERAL: The patient is a very pleasant 58-year-old male, who is in no acute distress. The patient is alert and oriented x3. VITAL SIGNS: Blood pressure of 143/66, heart rate of 69 and irregular, respiratory rate 18, oxygen saturation 97% on room air, temperature 97.8. HEENT: Head: Atraumatic, normocephalic. Eyes: Pupils are equal, reactive to light and accommodation. Oropharynx is clear. Mucosa moist. NECK: Supple. No JVD. No bruits bilaterally. RESPIRATORY: Clear to auscultation bilaterally. CHEST: On palpation of the patient's chest, the patient has point tenderness on palpation of the area of the left upper chest in the subclavicular region where his defibrillator is implanted. There is no evidence of skin abnormality or irritation in the area. CARDIOVASCULAR: Irregularly irregular rhythm. No murmur. ABDOMEN: Mild ascites present. Soft, nontender. Bowel sounds present in all 4 quadrants. EXTREMITIES: There is no edema. Pulses are +2 bilaterally. No clubbing or cyanosis. NEUROLOGIC: Speech is clear. Cranial nerves II through XII grossly intact. Motor strength is 5/5 bilaterally. PSYCHIATRIC: Pleasant and cooperative with evaluation, with no evidence of anxiety or depression. DIAGNOSTIC STUDIES/LAB DATA: White blood cell count of 8.7, hemoglobin of 12.6 , hematocrit of 36, MCV of 74, and platelets of 152. INR of 1.31. Sodium 134, potassium 3.6, chloride 92, carbon dioxide 31, BUN 57, creatinine 1.83. Liver function tests with chronic elevation of alkaline phosphatase of 105, otherwise AST and ALT unremarkable. Iron level low at 40, TIBC 337, percent iron saturation of 12. Magnesium of 1.5. Troponin of 0.01, second troponin 0.02. In regards to the patient's defibrillator review, that was discussed with Dr. Kelley, who saw the patient in consultation and stated that the patient did not have any defibrillator shocks recently. The patient's serology test is negative for influenza and COVID testing is pending at the time of dictation. The patient's portable chest x-ray, impression: "No acute cardiopulmonary process by radiograph. Left chest wall AICD with similar cardiomegaly comparing to chest x- ray from December 2018. The patient's EKG showed atrial fibrillation with a heart rate of 70 beats per minute with old inferior infarct and prolonged QT with 623 QTc calculated. Comparing with prior EKG from June of 2018, the patient's QTc at this point was 490 and other changes were similar. ASSESSMENT AND PLAN: 1. In regards to the patient's chest pain, he has point tenderness over the left upper chest wall. He has had cough and likely has underlying bronchitis. He is a COVID rule out and we are awaiting his testing results and continue droplet precautions. At this point, I do not see any indication for an antibiotic treatment. As per discussion with Dr. Kelley, we will place the patient on telemetry monitored bed especially that his QTc is prolonged and follow up with troponins. Due to droplet precautions, the patient is not going to enroll with stress test if he rules out with troponins. 2. For obstructive sleep apnea, the patient is going to be continued on CPAP at night. 3. For diabetes, the patient's oral hypoglycemics are going to be held and he is going to be placed on insulin sliding scale. 4. Microcytic anemia is chronic with hemoglobin at baseline. 5. The patient has chronic kidney disease stage 3 with creatinine that is at baseline. 6. For his history of liver cirrhosis, the patient is going to be continued on his lactulose. He is not encephalopathic at this point. 7. The patient's chronic atrial fibrillation is rate controlled. His Xarelto is going to be continued. After discussion with Dr. Kelley, we will increase the patient's Toprol-XL to 25 mg twice a day from once a day. 8. In regards to the patient's chronic obstructive pulmonary disease, he is not oxygen dependent and is not in exacerbation. Symbicort is going to be switched for Dulera which is in the hospital's formulary while in the hospital. 9. For chronic systolic congestive heart failure, the patient is going to be continued on his home medications which include metolazone and torsemide. He currently appears euvolemic. 10. Hypomagnesemia, which is probably the cause of the patient's prolonged QTc. We will replace it with IV magnesium. We will check magnesium in the morning and continue checking the patient on telemetry monitored bed. 11. For DVT prophylaxis, the patient is going to be continued on his Xarelto. 12. The patient's code status is full and his surrogate is his father. TIME SPENT: Approximately 65 minutes was spent on admission of this patient, more than half that time was spent [id number] with the patient during the interview and physical exam. [id number]/[facility] #: [id number] [facility]ITALP[facility]
[2019-05-13] MEDS: Insulin LISPRO* 1 UNITS UNIT SUBCUT SCH ×2 (18:23→22:38)
[2019-05-13] MEDS ORDERED: Magnesium Oxide TAB* 400 MG PO SCH (21:00)
[2019-05-13] MEDS: Mometasone/Formoter 200/5 MDI INH SCH (21:06)
[2019-05-13] MEDS: Diltiazem TAB* 30 MG PO SCH (21:20)
[2019-05-13] MEDS: Metoprolol Succinate XL TAB* 25 MG PO SCH (21:20)
[2019-05-13] MEDS ORDERED: Nitro Patch/OINT Remove PATCH OFF SCH (22:00)
[2019-05-14 07:33] LABS: BUN/Creatinine Ratio 30.9 (8-20); Calcium 9.2 mg/dL (8.6-10.3); EGFR African American 48.7 (>60); EGFR Non-African American 40.2 (>60); Magnesium 3.1 mg/dL (1.9-2.7); Potassium 3.9 mmol/L (3.5-5.0)
[2019-05-14 08:54] VITALS: BP 135/79
[2019-05-14] MEDS ORDERED: Thiamine TAB* 100 MG TAB PO SCH (09:00)
[2019-05-14] MEDS ORDERED: Aspirin EC TAB* 81 MG TAB.EC PO SCH (09:00)
[2019-05-14] MEDS ORDERED: Ferrous Sulfate TAB* 325 MG PO SCH (09:00)
[2019-05-14] MEDS ORDERED: Atorvastatin* 80 MG TAB PO SCH (09:00)
[2019-05-14] MEDS ORDERED: Cetirizine* 10 MG TAB PO SCH (09:00)
[2019-05-14] MEDS ORDERED: Nitroglycerin 0.2 MG/HR PATCH* (5 MG) TRANSDERM SCH (09:00)
[2019-05-14] MEDS ORDERED: Pantoprazole TAB * 40 MG TAB PO SCH (09:00)
[2019-05-14] MEDS ORDERED: Metolazone TAB* 5 MG PO SCH (09:00)
[2019-05-14] MEDS ORDERED: Torsemide TAB* 20 MG PO SCH (09:00)
[2019-05-14] MEDS ORDERED: Iron Sucrose* 200 MG in NS 0.9% 100 ML* 100 ML IVPB ONE (10:00)
[2019-05-14] MEDS: Diltiazem TAB* 30 MG PO SCH (10:25)
[2019-05-14] MEDS: Mometasone/Formoter 200/5 MDI INH SCH (10:26)
[2019-05-14] MEDS: Insulin LISPRO* 1 UNITS UNIT SUBCUT SCH (10:27)
[2019-05-14] MEDS: Metoprolol Succinate XL TAB* 25 MG PO SCH (10:32)
--- NOTE | 2019-05-14 14:25 | DS ---
CC: Dr. Hill; Dr. Kelley; Dr. German; Dr. Fowler from Gastroenterology * DISCHARGE SUMMARY: DATE OF ADMISSION: 05/13/19 DATE OF DISCHARGE: 05/14/19 PRIMARY CARE PROVIDER: Dr. Hill. DISPOSITION AT DISCHARGE: Home. CONDITION AT DISCHARGE: Stable. DISCHARGE DIAGNOSES: 1. Chest pain, likely musculoskeletal. 2. Cough, suspect mild viral bronchitis, but the patient had been COVID tested and COVID results are pending at the time of discharge. SECONDARY DIAGNOSES: 1. Chronic systolic congestive heart failure with ejection fraction of 50% to 55%. 2. Iron deficiency anemia. 3. Chronic kidney disease, stage 3. 4. Diabetes type 2. 5. Chronic obstructive pulmonary disease, currently not on oxygen. 6. Obstructive sleep apnea, on CPAP. 7. Atrial fibrillation, chronic, rate controlled. 8. 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 9. Pulmonary hypertension. 10. History of alcohol abuse, remotely. 11. Coronary artery disease, status post stenting 3 times in the past. 12. History of ventricular tachycardia, status post ICD placement. 13. History of nonsustained supraventricular tachycardia in the past. MEDICATIONS AT DISCHARGE: Include changed doses are: 1. Toprol-XL increased to 25 mg b.i.d. 2. Xarelto, dose decreased to 15 mg daily due to the patient's creatinine clearance. The remainder of the medications are unchanged and include: 1. Glimepiride 4 mg daily. 2. Ferrous sulfate 325 mg daily. 3. Torsemide 60 mg daily. 4. Mometasone furoate topical cream b.i.d. p.r.n. 5. Nasonex spray 1 spray both nostrils daily. 6. Colace 100 mg b.i.d. p.r.n. 7. Zinc oxide paste 1 application b.i.d. p.r.n. 8. Mag-Ox 400 mg 3 times a day to be started in 2 days after discharge. 9. Albuterol inhaler b.i.d. p.r.n. 10. Nitroglycerin on a p.r.n. basis. 11. Acetaminophen 1000 mg every 12 hours p.r.n. 12. Maalox on a p.r.n. basis. 13. Omeprazole 20 mg daily. 14. Zaroxolyn 2.5 mg Mondays, Wednesdays, and Fridays. 15. Thiamine 100 mg daily. 16. Symbicort 160/4.5 two puffs inhalation b.i.d. 17. Janumet one tablet b.i.d. 18. Zyrtec 10 mg daily. 19. Diltiazem 30 mg 2 times a day. 20. Lipitor 80 mg daily. 21. Aspirin 81 mg daily. 22. Xarelto mg daily. 23. Toprol-XL 25 mg daily. CONSULTATIONS DURING THE HOSPITAL STAY: Included Dr. Kelley from Cardiology. DIAGNOSTIC STUDIES/LAB DATA: Influenza testing is negative. COVID testing is pending. On 05/14/19, sodium 135, potassium 3.9, chloride 94, carbon dioxide 32, BUN 54, creatinine 1.75, magnesium 3.1 at discharge. HOSPITALIZATION COURSE: Fer Pratt is a 58-year-old male with history of alcoholic liver cirrhosis and currently mild ascites as well as multiple chronic conditions as mentioned above, who presented to the hospital complaining of chest pain. The patient stated that due to the COVID pandemic, he has been holding off with coming to the ED, but he had been having cough productive of white and yellow sputum, and with that, he developed left subscapular chest pain. He felt that the pain was sharp, localized around the area of his ICD insertion and he also felt that he must have gotten shocked by his ICD in the recent past. He mentioned that he felt it several times. Upon evaluation and review of his ICD per Dr. Kelley, there was 1 episode of SVT, which the patient had in the past, but no ICD shocks were delivered. Furthermore, upon my evaluation at admission, the patient had point tenderness in the area where the ICD was placed in the past. The patient also had been complaining of cough and congestion and some white and yellow sputum production. Due to that, COVID was tested in the emergency department and is pending at the time of dictation. The patient was placed on overnight observation. He was treated as COVID rule out. He was also advised to be kept overnight to rule out angina and acute cardiac issues. His troponins continued to be negative throughout his hospital stay. Due to the patient is on droplet precautions, echocardiogram and treadmill stress test were not performed. As per discussion with Dr. Kelley, Cardiology would normally recommend it, but once again due to the patient being on droplet precaution, it was physically impossible. Due to the patient having no more pain by the time of discharge and his troponins negative, there is no indication for the patient to stay until his COVID is ruled out to be able to undergo those tests. Those can be performed as outpatient. Dr. Kelley also recommended to treat the patient with IV iron, which is going to be administered prior to patient's discharge today. Please note that the patient's EKG showed mild changes with flattening of T- waves in the lateral leads, but those had not been dynamic during his hospital stay. After discussion with the pharmacist, the patient's creatinine clearance had been fluctuating, and although it is still the same, it would be safer for the patient to be on a lower dose of Xarelto at 15 mg daily and that dose was changed. As per discussion with Dr. Kelley, it was recommended for the patient to have double the dose of his beta-krysta and we switched him to Toprol-XL 25 mg twice a day. Otherwise, his remaining medications are unchanged. With regards to the patient's cough, although COVID is on the differential, I suspect the patient has simple viral bronchitis. He had no changes on his x- ray and no fevers. There is no indication for antibiotics at this point and the patient was comfortable by the time of discharge. The patient is being discharged home. Recommendation is to follow up with his primary care provider in 3 to [address] German in 1 to 2 weeks to complete evaluation with likely echocardiogram and stress test as per Dr. Kelley 's recommendation. PHYSICAL EXAMINATION: At the time of discharge, blood pressure 135/79, heart rate of 60 and irregularly irregular, respiratory rate 24, oxygen saturation 100 % on room air, temperature of 97.5. General: The patient is very pleasant 58- year-old male who is in no acute distress. The patient is alert and oriented x3. HEENT: Head atraumatic, normocephalic. Eyes: Pupils are equal, reactive to light and accommodation. Oropharynx is clear. Mucosa moist. Neck: Supple. No JVD. No bruits bilaterally. Cardiovascular: Irregularly irregular rhythm. No murmur. Respiratory: Clear to auscultation bilaterally. Abdomen: Mild ascites, soft, nontender. Bowel sounds are present in all 4 quadrants. Extremities: There is no edema. Pulses are +2 bilaterally. No clubbing or cyanosis. On neuro evaluation, speech is clear. Cranial nerves II through XII are grossly intact. Motor strength is 5/5 bilaterally. Please note that this is a short summary of the patient's hospitalization. Please refer to further medical records for details. TIME SPENT: Approximately 40 minutes was spent in preparation of the patient's discharge. [id number]/[facility] #: [id number] MTDD
[2019-05-14] MEDS ORDERED: Rivaroxaban TAB(*) 15 MG PO SCH (17:00)
[2019-05-14] MEDS ORDERED: Rivaroxaban TAB(*) 20 MG TAB PO SCH (17:00)
== END 2019-05-14 11:40 | disposition home or self-care (01) ==
LOC: ED 11:27 → MED 16:25
PROVIDERS: ADMIT Internal Medicine; ATTEND Internal Medicine
DX: R07.9 Chest pain, unspecified (principal); R05 Cough; E11.22 Type 2 diabetes mellitus with diabetic chronic kidney disease; I13.0 Hypertensive heart and chronic kidney disease with heart failure and stage 1 through stage 4 chronic kidney disease, or unspecified chronic kidney disease; N18.3 Chronic kidney disease, stage 3 (moderate); I27.20 Pulmonary hypertension, unspecified; I48.91 Unspecified atrial fibrillation; I50.22 Chronic systolic (congestive) heart failure; E83.42 Hypomagnesemia; D50.9 Iron deficiency anemia, unspecified; R06.02 Shortness of breath; Z20.828 Contact with and (suspected) exposure to other viral communicable diseases; G47.33 Obstructive sleep apnea (adult) (pediatric); I25.10 Atherosclerotic heart disease of native coronary artery without angina pectoris; Z95.1 Presence of aortocoronary bypass graft; Z95.810 Presence of automatic (implantable) cardiac defibrillator; Z79.01 Long term (current) use of anticoagulants; Z79.82 Long term (current) use of aspirin; Z79.899 Other long term (current) drug therapy; Z87.891 Personal history of nicotine dependence
CPT/HCPCS: 36415; 71045; 80048; 80053; 82728; 82947; 83540; 83550; 83735; 83880; 84484; 85025; 85610; 86140; 87635; 93005; 94640; 96365; 96366; 96375; 99285; A9270-GY; G0378; J1756; J3475; J3490

== ENCOUNTER 2022-07-08 10:52 | Inpatient (IN) ==
[2022-07-08 12:31] LABS: ABS Eosinophils 0.1 10^3/uL (0.0-0.5); ABS Lymphocytes 0.6 10^3/uL (1.0-4.8); ABS Monocytes 0.9 10^3/uL (0.0-1.1); ABS Neutrophils 10.4 10^3/uL (1.5-7.6); ABS Nucleated RBC 0.01 10^3/ul; Eosinophil % 0.7 %; Hematocrit 33.1 % (38-53); Hemoglobin 10.9 g/dL (13.2-16.3); Mean Corpuscular Hemoglobin 26.6 pg (27-33); Mean Corpuscular Volume 80.7 fL (80-97); Mean Platelet Volume 8.1 fL (7.5-11.2); Platelet Count 149 10^3/uL (150-450); Red Cell Distribution Width 16.6 % (12-17)
[2022-07-08 12:42] LABS: Activated Partial Thrombo Time 33.8 seconds (26.0-38.0); INR 1.28 (0.88-1.18)
[2022-07-08] MEDS ORDERED: Furosemide 100 mg/10 ml IV VIAL IV ONE (12:59)
[2022-07-08] MEDS ORDERED: Bumetanide IV 0.25 MG/ML 4 ml VIAL (1 mg) IV SLOW PU ONE ×3 (13:00→21:00)
[2022-07-08 13:41] LABS: Urine Appearance Cloudy; Urine Bilirubin Negative (Negative); Urine Blood 1+ (Negative); Urine Color Yellow; Urine Glucose 1+(50 mg/dL) (Negative); Urine Ketones Negative (Negative); Urine Nitrite Negative (Negative); Urine Protein 3+(>=500 mg/dL) (Negative); Urine Specific Gravity 1.014 (1.002-1.030); Urine Urobilinogen Negative (Negative)
[2022-07-08 13:49] LABS: High Sensitivity Troponin 1 Hr 7 pg/mL (<20)
[2022-07-08 13:57] LABS: Urine Bacteria 1+ (Absent); Urine Red Blood Cell Trace(0-2/hpf) (Absent); Urine Squamous Epithelial Cell Present (Absent); Urine White Blood Cell 2+(11-20/hpf) (Absent)
[2022-07-08 13:59] LABS: Albumin 4.2 g/dL (3.2-5.2); Albumin/Globulin Ratio 1.6 (1-3); C Reactive Protein 20.3 mg/L (<8.01); Calcium 8.6 mg/dL (8.6-10.3); Creatinine, Serum 1.71 mg/dL (0.67-1.17); Globulin 2.6 g/dL (2-4); Potassium 5.4 mmol/L (3.5-5.0); Total Bilirubin 1.4 mg/dL (0.2-1.0); Total Protein 6.8 g/dL (6.4-8.9)
[2022-07-08] MEDS ORDERED: SODIUM ZIRCONIUM CYCLOSILICATE 10 GM PACKET PO ONE (14:55)
[2022-07-08] MEDS ORDERED: Albuterol HFA INHALER 8 gm MDI INH PRN (14:57)
[2022-07-08] MEDS ORDERED: Dextrose 50% Syringe 50 ml 25 GM/50 ML SYRINGE IV PUSH PRN (15:50)
[2022-07-08] MEDS ORDERED: cefTRIAXone 1 gm/50 mL D5W 1 GM/50 ML BAG IV SCH ×2 (16:00→23:45)
[2022-07-08 16:44] LABS: PCO2 Arterial 55 mmHg (35-45); PO2 Arterial 80 mmHg (80-100)
[2022-07-08] MEDS ORDERED: Bumetanide 10 MG/40 ML IV DRIP IV ONE (17:00)
[2022-07-08 20:50] LABS: Calcium 8.9 mg/dL (8.6-10.3); Creatinine, Serum 1.73 mg/dL (0.67-1.17); Magnesium 2.2 mg/dL (1.9-2.7); Phosphorus 3.4 mg/dL (2.5-5.0); Potassium 4.7 mmol/L (3.5-5.0); eGFR CKD-EPI 44.4 (>60)
[2022-07-08] MEDS ORDERED: Budesonide/Formote 160/4.5(NF) MDI INH SCH (21:00)
[2022-07-08] MEDS ORDERED: Al Hydrox/Mg Hydrox/Simet LIQ 30 ML UDC PO PRN (21:47)
[2022-07-09] MEDS: Mometasone/Formoter 200/5 MDI INH SCH ×3 (00:03→19:12)
[2022-07-09 06:19] LABS: ABS Eosinophils 0.1 10^3/uL (0.0-0.5); ABS Lymphocytes 0.9 10^3/uL (1.0-4.8); ABS Monocytes 0.8 10^3/uL (0.0-1.1); ABS Neutrophils 8.5 10^3/uL (1.5-7.6); ABS Nucleated RBC 0.01 10^3/ul; Eosinophil % 1.3 %; Hematocrit 31.3 % (38-53); Hemoglobin 10.6 g/dL (13.2-16.3); Mean Corpuscular Hgb Conc 33.9 g/dL (31-36); Mean Corpuscular Volume 79.9 fL (80-97); Mean Platelet Volume 8.3 fL (7.5-11.2); Platelet Count 144 10^3/uL (150-450); Red Blood Count 3.92 10^6/uL (4.06-5.63); Red Cell Distribution Width 16.3 % (12-17); White Blood Count 10.4 10^3/uL (3.6-10.2)
[2022-07-09 06:42] LABS: Calcium 8.6 mg/dL (8.6-10.3); Creatinine, Serum 1.82 mg/dL (0.67-1.17); Magnesium 2.1 mg/dL (1.9-2.7); Phosphorus 4.9 mg/dL (2.5-5.0); Potassium 4.5 mmol/L (3.5-5.0); eGFR CKD-EPI 41.7 (>60)
[2022-07-09] MEDS ORDERED: Sulfur Hexaflouride MICROSPHR 25 MG VIAL ONE (08:13)
[2022-07-09] MEDS ORDERED: Bumetanide IV 0.25 MG/ML 4 ml VIAL (1 mg) IV SLOW PU SCH (09:00)
[2022-07-09] MEDS ORDERED: SITAGLIPTIN 50 MG PO SCH (09:00)
[2022-07-09] MEDS: Multivitamins/Minerals TAB PO SCH (09:32)
[2022-07-09] MEDS: Aspirin EC 81 mg TAB.EC (enteric coated) PO SCH (09:33)
[2022-07-09] MEDS: SITAGLIPTIN 25 MG PO SCH (13:23)
[2022-07-09] MEDS: Bumetanide 10 MG/40 ML IV DRIP IV SCH ×2 (13:24→20:24)
[2022-07-09] MEDS ORDERED: Benzocaine (plain) Lozenge 15 MG MT PRN (13:26)
[2022-07-09] MEDS: cefTRIAXone 1 gm/50 mL D5W 1 GM/50 ML BAG IV SCH (16:36)
[2022-07-10 06:33] LABS: ABS Basophils 0.1 10^3/uL (0.0-0.1); ABS Eosinophils 0.3 10^3/uL (0.0-0.5); ABS Lymphocytes 1.1 10^3/uL (1.0-4.8); ABS Monocytes 0.8 10^3/uL (0.0-1.1); ABS Neutrophils 9.5 10^3/uL (1.5-7.6); Eosinophil % 2.3 %; Hematocrit 31.3 % (38-53); Hemoglobin 10.6 g/dL (13.2-16.3); Mean Corpuscular Hemoglobin 26.6 pg (27-33); Mean Corpuscular Hgb Conc 33.7 g/dL (31-36); Mean Corpuscular Volume 79.1 fL (80-97); Mean Platelet Volume 7.8 fL (7.5-11.2); Platelet Count 164 10^3/uL (150-450); Red Blood Count 3.97 10^6/uL (4.06-5.63); Red Cell Distribution Width 16.3 % (12-17); White Blood Count 11.7 10^3/uL (3.6-10.2)
[2022-07-10 06:56] LABS: Calcium 8.5 mg/dL (8.6-10.3); Creatinine, Serum 1.77 mg/dL (0.67-1.17); Potassium 4.9 mmol/L (3.5-5.0); eGFR CKD-EPI 43.2 (>60)
[2022-07-10] MEDS: Mometasone/Formoter 200/5 MDI INH SCH ×2 (07:47→20:23)
[2022-07-10] MEDS: Aspirin EC 81 mg TAB.EC (enteric coated) PO SCH (08:28)
[2022-07-10] MEDS: Multivitamins/Minerals TAB PO SCH (08:31)
[2022-07-10] MEDS: SITAGLIPTIN 25 MG PO SCH (08:37)
[2022-07-10] MEDS: Bumetanide 10 MG/40 ML IV DRIP IV SCH ×2 (08:50→21:11)
[2022-07-10] MEDS ORDERED: Azithromycin 500 mg/250 ml NS 500 MG/250 ML BAG IVPB SCH (15:00)
[2022-07-10] MEDS: cefTRIAXone 1 gm/50 mL D5W 1 GM/50 ML BAG IV SCH (15:30)
[2022-07-10] MEDS: Nystatin SUSPENSION 100,000 UNITS/ML UDC SWISH SWAL SCH ×3 (16:24→20:30)
[2022-07-10] MEDS: Magic MW-DIPH/MAG-AL-SIME/LIDO FIRST BLM KIT SWISH SWAL SCH ×2 (16:55→20:30)
[2022-07-10] MEDS ORDERED: Insulin GLARGINE 100 un/ml 10 ml VIAL SUBCUT SCH (21:00)
[2022-07-11 06:29] LABS: ABS Basophils 0.1 10^3/uL (0.0-0.1); ABS Eosinophils 0.3 10^3/uL (0.0-0.5); ABS Monocytes 0.8 10^3/uL (0.0-1.1); ABS Nucleated RBC 0.01 10^3/ul; Eosinophil % 3.1 %; Hematocrit 30.2 % (38-53); Hemoglobin 10.4 g/dL (13.2-16.3); Lymphocyte % 9.9 %; Mean Corpuscular Hemoglobin 26.7 pg (27-33); Mean Corpuscular Hgb Conc 34.5 g/dL (31-36); Mean Corpuscular Volume 77.4 fL (80-97); Mean Platelet Volume 7.7 fL (7.5-11.2); Nucleated Red Blood Cells % 0.1 /100 WBC (0.0-0.4); Platelet Count 163 10^3/uL (150-450); Red Cell Distribution Width 15.8 % (12-17); White Blood Count 10.1 10^3/uL (3.6-10.2)
[2022-07-11 06:56] LABS: Calcium 8.1 mg/dL (8.6-10.3); Creatinine, Serum 1.96 mg/dL (0.67-1.17); Potassium 4.4 mmol/L (3.5-5.0); eGFR CKD-EPI 38.2 (>60)
[2022-07-11] MEDS: Multivitamins/Minerals TAB PO SCH (08:20)
[2022-07-11] MEDS: SITAGLIPTIN 25 MG PO SCH (08:22)
[2022-07-11] MEDS: Nystatin SUSPENSION 100,000 UNITS/ML UDC SWISH SWAL SCH ×2 (08:23→13:24)
[2022-07-11] MEDS: Aspirin EC 81 mg TAB.EC (enteric coated) PO SCH (08:23)
[2022-07-11] MEDS: Magic MW-DIPH/MAG-AL-SIME/LIDO FIRST BLM KIT SWISH SWAL SCH ×2 (08:24→13:24)
[2022-07-11] MEDS: Bumetanide 10 MG/40 ML IV DRIP IV SCH (08:25)
[2022-07-11] MEDS: Mometasone/Formoter 200/5 MDI INH SCH (08:54)
[2022-07-11 11:04] VITALS: BP 125/59
== END 2022-07-11 15:10 | disposition home or self-care (01) | DRG 291 ==
LOC: ED 10:52 → EDHOLD 14:52 → SUATTDRO 14:52 → MEDTELE 22:05
PROVIDERS: ADMIT Hospitalist; ATTEND Internal Medicine

== ENCOUNTER 2023-10-31 16:29 | Inpatient (IN) ==
[2023-10-31 18:25] LABS: ABS Basophils 0.1 10^3/uL (0.0-0.1); ABS Eosinophils 0.1 10^3/uL (0.0-0.5); ABS Monocytes 0.7 10^3/uL (0.0-1.1); ABS Neutrophils 7.5 10^3/uL (1.5-7.6); Eosinophil % 1.6 %; Hematocrit 29.7 % (38-53); Lymphocyte % 10.8 %; Mean Corpuscular Hemoglobin 25.7 pg (27-33); Mean Corpuscular Hgb Conc 33.8 g/dL (31-36); Mean Corpuscular Volume 75.8 fL (80-97); Mean Platelet Volume 7.3 fL (7.5-11.2); Platelet Count 251 10^3/uL (150-450); Red Blood Count 3.91 10^6/uL (4.06-5.63); White Blood Count 9.4 10^3/uL (3.6-10.2)
[2023-10-31 18:41] LABS: INR 1.47 (0.85-1.14)
[2023-10-31 18:57] LABS: Albumin 3.6 g/dL (3.2-5.2); Albumin/Globulin Ratio 1.4 (1-3); Calcium 8.6 mg/dL (8.6-10.3); Creatinine, Serum 3.44 mg/dL (0.67-1.17); Globulin 2.6 g/dL (2-4); Potassium 4.2 mmol/L (3.5-5.0); Total Bilirubin 0.5 mg/dL (0.2-1.0); Total Protein 6.2 g/dL (6.4-8.9); eGFR CKD-EPI 19.2 (>60)
[2023-11-01] MEDS ORDERED: Albuterol HFA INHALER 8 gm MDI INH PRN (00:24)
[2023-11-01] MEDS ORDERED: Dextrose 50% Syringe 50 ml 25 GM/50 ML SYRINGE IV PUSH PRN (00:28)
[2023-11-01] MEDS: Pantoprazole VIAL 40 MG VIAL IV SCH (02:07)
[2023-11-01 03:44] LABS: Hematocrit 27.8 % (38-53); Hemoglobin 9.3 g/dL (13.2-16.3); Mean Corpuscular Hemoglobin 25.8 pg (27-33); Mean Corpuscular Hgb Conc 33.5 g/dL (31-36); Mean Platelet Volume 7.3 fL (7.5-11.2); Platelet Count 227 10^3/uL (150-450); Red Blood Count 3.61 10^6/uL (4.06-5.63); Red Cell Distribution Width 15.1 % (12-17); White Blood Count 7.1 10^3/uL (3.6-10.2)
[2023-11-01 04:32] LABS: Calcium 8.3 mg/dL (8.6-10.3); Creatinine, Serum 3.61 mg/dL (0.67-1.17); Magnesium 1.9 mg/dL (1.9-2.7); eGFR CKD-EPI 18.1 (>60)
[2023-11-01 06:01] LABS: Hematocrit 26.9 % (38-53); Hemoglobin 9.3 g/dL (13.2-16.3); Mean Corpuscular Hemoglobin 26.4 pg (27-33); Mean Corpuscular Hgb Conc 34.8 g/dL (31-36); Mean Corpuscular Volume 75.8 fL (80-97); Mean Platelet Volume 7.4 fL (7.5-11.2); Platelet Count 224 10^3/uL (150-450); Red Blood Count 3.54 10^6/uL (4.06-5.63); Red Cell Distribution Width 14.8 % (12-17); White Blood Count 8.1 10^3/uL (3.6-10.2)
[2023-11-01] MEDS: NS 0.9% 1000 ml BAG 1,000 ML IV SCH (08:47)
[2023-11-01] MEDS: Mometasone/Formoter 200/5 MDI INH SCH (12:13)
[2023-11-01] MEDS: PEG 3000 GI LAVAGE 1 GALLON PO ONE (20:09)
[2023-11-01] MEDS: Insulin GLARGINE 100 un/ml 10 ml VIAL SUBCUT SCH (21:36)
[2023-11-02] MEDS: Influenza Vaccine *TRI* 2024-25* 0.5 ML SYRINGE IM ONE (09:52)
[2023-11-02 10:59] LABS: ABS Eosinophils 0.2 10^3/uL (0.0-0.5); ABS Lymphocytes 0.8 10^3/uL (1.0-4.8); ABS Monocytes 0.5 10^3/uL (0.0-1.1); ABS Neutrophils 6.2 10^3/uL (1.5-7.6); Eosinophil % 2.1 %; Hematocrit 27.6 % (38-53); Hemoglobin 9.2 g/dL (13.2-16.3); Lymphocyte % 10.4 %; Mean Corpuscular Hemoglobin 25.6 pg (27-33); Mean Corpuscular Hgb Conc 33.3 g/dL (31-36); Mean Corpuscular Volume 76.7 fL (80-97); Mean Platelet Volume 7.4 fL (7.5-11.2); Platelet Count 215 10^3/uL (150-450); Red Blood Count 3.59 10^6/uL (4.06-5.63); Red Cell Distribution Width 15.2 % (12-17); White Blood Count 7.7 10^3/uL (3.6-10.2)
[2023-11-02 11:19] LABS: Albumin 3.4 g/dL (3.2-5.2); Albumin/Globulin Ratio 1.4 (1-3); Calcium 8.6 mg/dL (8.6-10.3); Creatinine, Serum 2.38 mg/dL (0.67-1.17); Globulin 2.5 g/dL (2-4); Total Bilirubin 0.7 mg/dL (0.2-1.0); Total Protein 5.9 g/dL (6.4-8.9); eGFR CKD-EPI 29.9 (>60)
[2023-11-02] MEDS: Acetaminophen IV 1 GM/100ML 1,000 MG/100 ML BAG IV PRN (17:01)
[2023-11-02] MEDS: PEG 3000 GI LAVAGE 1 GALLON PO ONE (22:37)
[2023-11-03] MEDS: Ondansetron 4 mg VIAL 2 MG/ML 2 ml VIAL IV PRN (07:49)
[2023-11-03] MEDS: Ondansetron 4 mg VIAL 2 MG/ML 2 ml VIAL ONE (07:55)
[2023-11-03] MEDS ORDERED: Lidocaine 2% PF 5 ML VIAL INJ ONE (15:24)
[2023-11-03] MEDS ORDERED: Phenylephrine 40 mcg/mL 10mL (400mcg) SYRINGE INJ ONE ×2 (15:43→16:10)
[2023-11-04 10:15] VITALS: BP 116/67
[2023-11-05] MEDS ORDERED: Influenza Vaccine *TRI* 2024-25* 0.5 ML SYRINGE IM ONE (09:00)
== END 2023-11-04 13:37 | disposition home or self-care (01) | DRG 378 ==
LOC: ED 16:29 → EDHOLD 16:29 → SUATTDRO 21:53 → SSU 11-01 14:15 → MEDTELE 11-02 08:59
PROVIDERS: ADMIT Internal Medicine; ATTEND Internal Medicine

== ENCOUNTER 2024-01-28 14:03 | Observation (INO) ==
[2024-01-28 15:06] LABS: ABS Basophils 0.2 10^3/uL (0.0-0.1); ABS Lymphocytes 0.6 10^3/uL (1.0-4.8); ABS Monocytes 0.9 10^3/uL (0.0-1.1); ABS Neutrophils 16.4 10^3/uL (1.5-7.6); ABS Nucleated RBC 0.01 10^3/ul; Eosinophil % 0.2 %; Hematocrit 34.2 % (38-53); Hemoglobin 11.6 g/dL (13.2-16.3); Lymphocyte % 3.4 %; Mean Corpuscular Hemoglobin 25.1 pg (27-33); Mean Corpuscular Hgb Conc 33.9 g/dL (31-36); Mean Corpuscular Volume 74.2 fL (80-97); Mean Platelet Volume 7.4 fL (7.5-11.2); Platelet Count 241 10^3/uL (150-450); Red Blood Count 4.62 10^6/uL (4.06-5.63); Red Cell Distribution Width 16.6 % (12-17); White Blood Count 18.1 10^3/uL (3.6-10.2)
[2024-01-28 15:12] LABS: INR 1.18 (0.85-1.14)
[2024-01-28 15:24] LABS: Albumin 4.1 g/dL (3.2-5.2); Albumin/Globulin Ratio 1.3 (1-3); C Reactive Protein 16.82 mg/L (<8.01); Calcium 9.9 mg/dL (8.6-10.3); Creatinine, Serum 2.85 mg/dL (0.67-1.17); Globulin 3.1 g/dL (2-4); Magnesium 1.4 mg/dL (1.9-2.7); Potassium 4.1 mmol/L (3.5-5.0); Total Bilirubin 0.5 mg/dL (0.2-1.0); Total Protein 7.2 g/dL (6.4-8.9); eGFR CKD-EPI 24.1 (>60)
[2024-01-28 16:48] LABS: High Sensitivity Troponin 1 Hr 4 pg/mL (<20)
[2024-01-28] MEDS: Magnesium Sulfate 2 gm BAG 2 GM/50 ML BAG IVPB ONE (17:10)
[2024-01-28] MEDS: metroNIDAZOLE IV 500 MG/100ML 500 MG/100 ML BAG IVPB ONE (17:10)
[2024-01-28] MEDS: Cefepime 2 GM in Dextrose 2 GM/50 ML BAG IV ONE (17:20)
[2024-01-28 17:50] LABS: Urine Appearance Clear; Urine Bilirubin Negative (Negative); Urine Blood Negative (Negative); Urine Color Light-Yellow; Urine Glucose Negative (Negative); Urine Ketones Negative (Negative); Urine Nitrite Negative (Negative); Urine Protein Negative (Negative); Urine Specific Gravity 1.013 (1.002-1.030); Urine Urobilinogen Negative (Negative)
[2024-01-28] MEDS: Vancomycin 1,250 MG in NS 0.9% 250 ml 250 ML IVPB ONE (17:58)
[2024-01-28 19:06] LABS: Urine Bacteria 1+ (Absent); Urine Red Blood Cell 1+(3-5/hpf) (Absent); Urine Squamous Epithelial Cell Present (Absent); Urine White Blood Cell 2+(11-20/hpf) (Absent)
[2024-01-28] MEDS ORDERED: Albuterol HFA INHALER 8 gm MDI INH PRN (21:23)
[2024-01-28] MEDS ORDERED: Dextrose 50% Syringe 50 ml 25 GM/50 ML SYRINGE IV PUSH PRN (21:31)
[2024-01-28] MEDS: Heparin 5000 UNITS/ML 1 mL VIAL SUBCUT SCH (22:28)
[2024-01-29] MEDS: CMCS:FLUTICAS/UMECLI/VILANT 200-62.5-25 MDI (NF) INH SCH (00:28)
[2024-01-29] MEDS: cefTRIAXone 1 gm/50 mL D5W 1 GM/50 ML BAG IV SCH (03:34)
[2024-01-29] MEDS: Insulin GLARGINE 100 un/ml 10 ml VIAL SUBCUT SCH (06:12)
[2024-01-29 06:18] LABS: Hematocrit 27.5 % (38-53); Hemoglobin 9.4 g/dL (13.2-16.3); Mean Corpuscular Hemoglobin 25.6 pg (27-33); Mean Corpuscular Hgb Conc 34.2 g/dL (31-36); Mean Platelet Volume 7.3 fL (7.5-11.2); Platelet Count 185 10^3/uL (150-450); Red Blood Count 3.67 10^6/uL (4.06-5.63); Red Cell Distribution Width 16.2 % (12-17)
[2024-01-29 07:09] LABS: ALT 14 U/L (7-52); AST 11 U/L (13-39); Albumin/Globulin Ratio 1.4 (1-3); Alkaline Phosphatase 71 U/L (35-149); Anion Gap 9 mmol/L (2-16); Blood Urea Nitrogen 83 mg/dL (6-24); CO2 Carbon Dioxide 30 mmol/L (22-32); Calcium 7.6 mg/dL (8.6-10.3); Chloride 97 mmol/L (101-111); Creatinine, Serum 2.42 mg/dL (0.67-1.17); Globulin 2.2 g/dL (2-4); Glucose 147 mg/dL (70-100); Potassium 3.4 mmol/L (3.5-5.0); Sodium 136 mmol/L (135-145); Total Bilirubin 0.5 mg/dL (0.2-1.0); Total Protein 5.2 g/dL (6.4-8.9); eGFR CKD-EPI 29.3 (>60)
[2024-01-29 07:12] LABS: ABS Basophils 0.1 10^3/uL (0.0-0.1); ABS Lymphocytes 0.9 10^3/uL (1.0-4.8); ABS Monocytes 0.9 10^3/uL (0.0-1.1); ABS Neutrophils 9.1 10^3/uL (1.5-7.6); ABS Nucleated RBC 0.01 10^3/ul; Eosinophil % 0.2 %; Lymphocyte % 8.5 %; Nucleated Red Blood Cells % 0.1 %/100WBC (0.0-0.8)
[2024-01-29 07:58] LABS: Magnesium 1.6 mg/dL (1.9-2.7)
[2024-01-29 08:11] LABS: % Iron Saturation 9 % (15-55); .Transferrin 158 mg/dL (203-362); Iron < 20 ug/dL (50-212); Total Iron Binding Capacity 221 mcg/dL (250-450); Unsaturated Iron Binding 201 ug/dL
[2024-01-29 08:27] LABS: TSH Ultra Thyroid Stim Horm 0.72 mcIU/mL (0.34-5.60)
[2024-01-29 08:37] LABS: Folate 8.86 ng/mL (5.90-24.80)
[2024-01-29 08:38] LABS: Vitamin B12 229 pg/mL (180-914)
[2024-01-29 08:39] LABS: Ferritin 105.1 ng/mL (24-336)
[2024-01-29] MEDS: Magnesium Sulf 4 GM/100 ML IV 4,000 MG/100 ML BAG IVPB ONE (09:44)
[2024-01-29] MEDS: Potassium Chlor 20 meq TAB.ER PO ONE (09:45)
[2024-01-29] MEDS: Aspirin EC 81 mg TAB.EC (enteric coated) PO SCH (09:48)
[2024-01-29 14:04] VITALS: BP 136/73
[2024-01-29] MEDS: Ferric Gluconate IV 250 MG in NS 0.9% 250 ml 200 ML IVPB SCH (16:50)
== END 2024-01-29 14:30 | disposition home or self-care (01) ==
LOC: ED 14:03 → EDHOLD 14:03 → SUATTDRO 18:42 → MEDTELE 01-29 05:30
PROVIDERS: ADMIT Hospitalist; ATTEND Internal Medicine

== ENCOUNTER 2024-03-18 12:47 | Observation (INO) ==
[2024-03-18 14:20] LABS: Albumin 3.8 g/dL (3.5-5.7); Albumin/Globulin Ratio 1.5 (1-3); Calcium 8.3 mg/dL (8.6-10.3); Creatinine, Serum 2.34 mg/dL (0.67-1.17); Globulin 2.6 g/dL (2-4); Magnesium 1.9 mg/dL (1.9-2.7); Potassium 3.9 mmol/L (3.5-5.0); Total Bilirubin 0.6 mg/dL (0.2-1.0); Total Protein 6.4 g/dL (6.4-8.9); eGFR CKD-EPI 30.5 (>60)
[2024-03-18 14:29] LABS: ABS Eosinophils 0.2 10^3/uL (0.0-0.5); ABS Lymphocytes 0.8 10^3/uL (1.0-4.8); ABS Monocytes 0.5 10^3/uL (0.0-1.1); ABS Neutrophils 7.5 10^3/uL (1.5-7.6); ABS Nucleated RBC 0.01 10^3/ul; Eosinophil % 2.1 %; Lymphocyte % 8.7 %; Mean Corpuscular Hemoglobin 26.7 pg (27-33); Mean Corpuscular Hgb Conc 34.3 g/dL (31-36); Mean Corpuscular Volume 77.8 fL (80-97); Mean Platelet Volume 8.2 fL (7.5-11.2); Nucleated Red Blood Cells % 0.1 %/100WBC (0.0-0.8); Platelet Count 184 10^3/uL (150-450); Red Blood Count 4.12 10^6/uL (4.06-5.63)
[2024-03-18 15:00] LABS: INR 1.25 (0.85-1.14)
[2024-03-18] MEDS ORDERED: Dextrose 50% Syringe 50 ml 25 GM/50 ML SYRINGE IV PUSH PRN (20:55)
[2024-03-18] MEDS ORDERED: Albuterol HFA INHALER 8 gm MDI INH PRN (20:55)
[2024-03-18] MEDS: Nitroglycerin 0.2 mg/hr PATCH (5 mg) TRANSDERM SCH (23:09)
[2024-03-18] MEDS: Pantoprazole VIAL 40 MG VIAL IV SCH (23:12)
[2024-03-18] MEDS: PEG 3000 GI LAVAGE 1 GALLON PO ONE (23:22)
[2024-03-19 07:11] LABS: ABS Eosinophils 0.2 10^3/uL (0.0-0.5); ABS Monocytes 0.7 10^3/uL (0.0-1.1); ABS Neutrophils 7.5 10^3/uL (1.5-7.6); Eosinophil % 2.1 %; Hematocrit 29.4 % (38-53); Hemoglobin 10.5 g/dL (13.2-16.3); Mean Corpuscular Hemoglobin 27.5 pg (27-33); Mean Corpuscular Hgb Conc 35.6 g/dL (31-36); Mean Corpuscular Volume 77.4 fL (80-97); Mean Platelet Volume 7.8 fL (7.5-11.2); Platelet Count 170 10^3/uL (150-450); Red Cell Distribution Width 17.3 % (12-17); White Blood Count 9.5 10^3/uL (3.6-10.2)
[2024-03-19 07:24] LABS: Calcium 8.6 mg/dL (8.6-10.3); Creatinine, Serum 2.26 mg/dL (0.67-1.17); Magnesium 1.9 mg/dL (1.9-2.7); Phosphorus 4.2 mg/dL (2.5-5.0); Potassium 3.8 mmol/L (3.5-5.0); eGFR CKD-EPI 31.8 (>60)
[2024-03-19] MEDS: CMCS: FLUTICAS/UMECLI/VILANT 200-62.5-25 MDI (NF) INH SCH (07:31)
[2024-03-19] MEDS: Insulin GLARGINE 100 un/ml 10 ml VIAL SUBCUT SCH (08:24)
[2024-03-19] MEDS ORDERED: Omeprazole 20 mg CAP (NF) PO SCH (09:00)
[2024-03-19 10:12] LABS: Ferritin 63.5 ng/mL (24-336)
[2024-03-19] MEDS ORDERED: Dextrose 50% Syringe 50 ml 25 GM/50 ML SYRINGE IV PUSH PRN (10:51)
[2024-03-19] MEDS: PEG 3000 GI LAVAGE 1 GALLON PO ONE (12:13)
[2024-03-19] MEDS: Ferric Gluconate IV 250 MG in NS 0.9% 250 ml 200 ML IVPB SCH (17:36)
[2024-03-20 08:33] LABS: ABS Basophils 0.1 10^3/uL (0.0-0.1); ABS Eosinophils 0.1 10^3/uL (0.0-0.5); ABS Lymphocytes 0.8 10^3/uL (1.0-4.8); ABS Monocytes 0.7 10^3/uL (0.0-1.1); ABS Neutrophils 6.4 10^3/uL (1.5-7.6); Eosinophil % 1.7 %; Hematocrit 29.7 % (38-53); Hemoglobin 10.6 g/dL (13.2-16.3); Lymphocyte % 10.2 %; Mean Corpuscular Hemoglobin 27.3 pg (27-33); Mean Corpuscular Hgb Conc 35.7 g/dL (31-36); Mean Corpuscular Volume 76.5 fL (80-97); Mean Platelet Volume 7.6 fL (7.5-11.2); Nucleated Red Blood Cells % 0.1 %/100WBC (0.0-0.8); Platelet Count 174 10^3/uL (150-450); Red Blood Count 3.88 10^6/uL (4.06-5.63); Red Cell Distribution Width 17.4 % (12-17)
[2024-03-20 09:05] LABS: Calcium 8.3 mg/dL (8.6-10.3); Creatinine, Serum 2.2 mg/dL (0.67-1.17); Magnesium 1.5 mg/dL (1.9-2.7); Potassium 3.8 mmol/L (3.5-5.0); eGFR CKD-EPI 32.8 (>60)
[2024-03-20] MEDS: Insulin GLARGINE 100 un/ml 10 ml VIAL SUBCUT SCH (09:15)
[2024-03-20] MEDS: Magnesium Sulfate 2 gm BAG 2 GM/50 ML BAG IVPB ONE (11:32)
[2024-03-20] MEDS: Magnesium Sulfate IV 1GM/100ML 1 GM/100 ML BAG IV ONE (13:26)
[2024-03-21 06:52] LABS: ABS Eosinophils 0.2 10^3/uL (0.0-0.5); ABS Monocytes 0.7 10^3/uL (0.0-1.1); ABS Nucleated RBC 0.01 10^3/ul; Eosinophil % 2.5 %; Hematocrit 29.5 % (38-53); Hemoglobin 10.6 g/dL (13.2-16.3); Lymphocyte % 9.9 %; Mean Corpuscular Hemoglobin 27.6 pg (27-33); Mean Corpuscular Volume 76.6 fL (80-97); Mean Platelet Volume 7.7 fL (7.5-11.2); Nucleated Red Blood Cells % 0.1 %/100WBC (0.0-0.8); Platelet Count 179 10^3/uL (150-450); Red Blood Count 3.86 10^6/uL (4.06-5.63); Red Cell Distribution Width 17.3 % (12-17)
[2024-03-21 07:22] LABS: Calcium 8.8 mg/dL (8.6-10.3); Creatinine, Serum 2.36 mg/dL (0.67-1.17); Magnesium 1.8 mg/dL (1.9-2.7); Potassium 3.7 mmol/L (3.5-5.0); eGFR CKD-EPI 30.2 (>60)
[2024-03-21 09:20] VITALS: BP 131/74
== END 2024-03-21 12:10 | disposition home or self-care (01) ==
LOC: ED 12:47 → EDHOLD 12:47 → MED 20:50
PROVIDERS: ADMIT Student in an Organized Health Care Education/Training Program; ATTEND Student in an Organized Health Care Education/Training Program